=== PATIENT | female | born 1960 | race Caucasian/White ===

== ENCOUNTER 2018-07-10 13:34 | Emergency (ER) | payer OTHER ==
[2018-07-10] MEDS ORDERED: KETOROLAC TROMETHAMINE 60 MG/2 ML VIAL ONE (14:00)
[2018-07-10] MEDS ORDERED: LIDOCAINE 5% TOPICAL PATCH TP ONE (14:00)
== END 2018-07-10 14:55 | disposition home or self-care (01) ==
LOC: EDH 13:34
DX: M54.18 Radiculopathy, sacral and sacrococcygeal region (principal); M06.9 Rheumatoid arthritis, unspecified; M81.0 Age-related osteoporosis without current pathological fracture; J45.909 Unspecified asthma, uncomplicated; M19.90 Unspecified osteoarthritis, unspecified site; Z87.442 Personal history of urinary calculi; Z90.710 Acquired absence of both cervix and uterus
CPT/HCPCS: 96372; 99283; J1885

== ENCOUNTER → 2018-10-09 | Outpatient (CLI) | payer OTHER | END | disposition home or self-care (01) | LOC: RAH 15:32 | PROVIDERS: ATTEND Physical Medicine & Rehabilitation | DX: M50.321 Other cervical disc degeneration at C4-C5 level (principal); M48.02 Spinal stenosis, cervical region; M25.78 Osteophyte, vertebrae | CPT/HCPCS: 72141 ==

== ENCOUNTER → 2018-11-11 | Outpatient (CLI) | payer OTHER | END | disposition home or self-care (01) | LOC: RAH 13:49 | PROVIDERS: ATTEND Nurse Practitioner Adult Health | DX: Z12.31 Encounter for screening mammogram for malignant neoplasm of breast (principal) | CPT/HCPCS: 77067 ==

== ENCOUNTER → 2018-11-12 | Outpatient (CLI) | payer OTHER | END | disposition home or self-care (01) | LOC: RAH 14:41 | PROVIDERS: ATTEND Nurse Practitioner Adult Health | DX: R07.9 Chest pain, unspecified (principal); R60.0 Localized edema; M47.815 Spondylosis without myelopathy or radiculopathy, thoracolumbar region | CPT/HCPCS: 71046; 93970 ==

== ENCOUNTER 2019-04-12 08:46 | Emergency (ER) | payer OTHER ==
[2019-04-12 10:00] LABS: CREATININE 0.8 mg/dL (0.5-1.5); POTASSIUM 3.6 mmol/L (3.5-5.1)
[2019-04-12 10:02] LABS: APPEARANCE,URINE CLEAR (CLEAR); BILIRUBIN,URINE NEGATIVE (NEGATIVE); COLOR,URINE YELLOW (YELLOW); GLUCOSE, URINE (UA) NEGATIVE (NEGATIVE); KETONES,URINE NEGATIVE (NEGATIVE); LEUKOCYTE ESTERASE ,URINE NEGATIVE (NEGATIVE); NITRATE,URINE NEGATIVE (NEGATIVE); OCCULT BLOOD,URINE LARGE (NEGATIVE); PH,URINE 5.5 (5.0-8.0); PROTEIN,URINE NEGATIVE (NEGATIVE); UROBILINOGEN,URINE 0.2 mg/dL (0.2-1.0)
[2019-04-12 10:02] LABS: BASOPHILS % (AUTO) 0.7 % (0.0-5.0); EOSINOPHILS % (AUTO) 3.1 % (0.0-8.0); HEMATOCRIT 39.2 % (36-48); MEAN CORPUSCULAR HEMOGLOBIN 26.4 pg (27.0-33.0); MEAN CORPUSCULAR HGB CONC 31.9 g/dL (32.0-36.0); MEAN CORPUSCULAR VOLUME 82.7 fL (79-99); MONOCYTES % (AUTO) 10.1 % (3.0-13.0); NEUTROPHILS % (AUTO) 53.8 % (40.0-77.0); PLATELET COUNT (AUTO) 300 K/uL (130-400); RED BLOOD CELL COUNT(AUTO) 4.74 MIL/uL (4.00-5.50); WHITE BLOOD COUNT (AUTO) 7.2 K/uL (4.8-10.8)
[2019-04-12 10:05] LABS: ALBUMIN 3.2 g/dL (3.5-5.0); BILIRUBIN,TOTAL 0.5 mg/dL (0.2-1.0); TOTAL PROTEIN, SERUM 6.7 g/dL (6.0-8.3)
[2019-04-12 10:25] LABS: BACTERIA,URINE Few /HPF (None Seen); SQUAMOUS EPITHELIAL CELL,UR 0-2 /HPF (0-2); WBC,URINE 0-1 /HPF (0-1)
[2019-04-12] MEDS ORDERED: MORPHINE SULFATE 4 MG/1ML SYG ONE (10:41)
[2019-04-12] MEDS ORDERED: SODIUM CHLORIDE 0.9% 1000ML 1,000 ML IV ONE (10:41)
[2019-04-12] MEDS ORDERED: KETOROLAC TROMETHAMINE 60 MG/2 ML VIAL ONE (10:41)
[2019-04-12] MEDS ORDERED: ONDANSETRON HCL 4 MG/2 ML VIAL ONE (10:46)
== END 2019-04-12 11:40 | disposition home or self-care (01) ==
LOC: EDH 08:46
DX: N20.0 Calculus of kidney (principal); J45.909 Unspecified asthma, uncomplicated; M79.7 Fibromyalgia; M81.0 Age-related osteoporosis without current pathological fracture; M06.9 Rheumatoid arthritis, unspecified; I10 Essential (primary) hypertension; Z87.891 Personal history of nicotine dependence
CPT/HCPCS: 36415; 74176; 80053; 81001; 85025; 96374; 96375; 99285; J1885; J2270; J2405; J7030

== ENCOUNTER 2019-05-21 13:36 | Emergency (ER) | payer OTHER ==
[2019-05-21] MEDS ORDERED: ACETAMINOPHEN EXTRA STRENGTH 500 MG TABLET ONE (14:47)
[2019-05-21] MEDS ORDERED: SODIUM CHLORIDE 0.9% 1000ML 1,000 ML IV ONE (16:47)
[2019-05-21 16:56] LABS: APPEARANCE,URINE Clear (CLEAR); BASOPHILS % (AUTO) 0.4 % (0.0-5.0); BILIRUBIN,URINE Negative (NEGATIVE); COLOR,URINE Yellow (YELLOW); EOSINOPHILS % (AUTO) 2.6 % (0.0-8.0); GLUCOSE, URINE (UA) Negative (NEGATIVE); HEMATOCRIT 38.7 % (36-48); KETONES,URINE Negative (NEGATIVE); LEUKOCYTE ESTERASE ,URINE Small (NEGATIVE); LYMPHOCYTES % (AUTO) 19.7 % (21.0-51.0); MEAN CORPUSCULAR HGB CONC 31.3 g/dL (32.0-36.0); MONOCYTES % (AUTO) 7.8 % (3.0-13.0); NEUTROPHILS % (AUTO) 69.1 % (40.0-77.0); NITRATE,URINE Negative (NEGATIVE); OCCULT BLOOD,URINE Trace (NEGATIVE); PLATELET COUNT (AUTO) 340 K/uL (130-400); PROTEIN,URINE Negative (NEGATIVE); RED BLOOD CELL COUNT(AUTO) 4.66 MIL/uL (4.00-5.50); RED CELL DISTRIBUTION WIDTH 14.4 % (11.0-15.5); WHITE BLOOD COUNT (AUTO) 11.1 K/uL (4.8-10.8)
[2019-05-21 17:16] LABS: BACTERIA,URINE Few /HPF (None Seen); CREATININE 1.2 mg/dL (0.5-1.5); POTASSIUM 3.2 mmol/L (3.5-5.1); SQUAMOUS EPITHELIAL CELL,UR 0-2 /HPF (0-2)
[2019-05-21 17:24] LABS: ALBUMIN 3.2 g/dL (3.5-5.0); BILIRUBIN,TOTAL 0.4 mg/dL (0.2-1.0); TOTAL PROTEIN, SERUM 7.4 g/dL (6.0-8.3)
[2019-05-21] MEDS ORDERED: POTASSIUM CHLORIDE 20 MEQ ERTAB PO ONE (17:29)
== END 2019-05-21 17:58 | disposition home or self-care (01) ==
LOC: EDH 13:36
DX: J11.1 Influenza due to unidentified influenza virus with other respiratory manifestations (principal); E86.0 Dehydration; M06.9 Rheumatoid arthritis, unspecified; I10 Essential (primary) hypertension; M81.0 Age-related osteoporosis without current pathological fracture; J45.909 Unspecified asthma, uncomplicated; Z90.49 Acquired absence of other specified parts of digestive tract; Z90.710 Acquired absence of both cervix and uterus
CPT/HCPCS: 36415; 71046; 80053; 82550; 83605; 85025; 87040; 87804 ×2; 96360; 99284; J7030

== ENCOUNTER 2019-06-05 07:36 | Day surgery (SDC) | payer OTHER ==
[2019-05-21 12:40] LABS: BASOPHILS % (AUTO) 0.6 % (0.0-5.0); EOSINOPHILS % (AUTO) 2.3 % (0.0-8.0); HEMATOCRIT 39.9 % (36-48); LYMPHOCYTES % (AUTO) 19.8 % (21.0-51.0); MEAN CORPUSCULAR HEMOGLOBIN 25.9 pg (27.0-33.0); MEAN CORPUSCULAR HGB CONC 31.6 g/dL (32.0-36.0); MEAN CORPUSCULAR VOLUME 82.1 fL (79-99); MONOCYTES % (AUTO) 10.5 % (3.0-13.0); NEUTROPHILS % (AUTO) 66.4 % (40.0-77.0); PLATELET COUNT (AUTO) 361 K/uL (130-400); RED BLOOD CELL COUNT(AUTO) 4.86 MIL/uL (4.00-5.50); RED CELL DISTRIBUTION WIDTH 14.5 % (11.0-15.5); WHITE BLOOD COUNT (AUTO) 11.2 K/uL (4.8-10.8)
[2019-05-21 12:46] LABS: APPEARANCE,URINE Clear (CLEAR); BILIRUBIN,URINE Negative (NEGATIVE); COLOR,URINE Yellow (YELLOW); GLUCOSE, URINE (UA) Negative (NEGATIVE); KETONES,URINE Negative (NEGATIVE); LEUKOCYTE ESTERASE ,URINE Small (NEGATIVE); NITRATE,URINE Negative (NEGATIVE); OCCULT BLOOD,URINE Trace (NEGATIVE); PROTEIN,URINE Negative (NEGATIVE)
[2019-05-21 12:50] LABS: CREATININE 1.1 mg/dL (0.5-1.5); POTASSIUM 3.5 mmol/L (3.5-5.1)
[2019-05-21 12:55] LABS: INR 0.95 (0.85-1.15); PARTIAL THROMBOPLASTIN TIME 30.1 SEC (26.3-35.5)
[2019-05-21 12:59] LABS: BACTERIA,URINE Rare /HPF (None Seen); RBC,URINE 0-1 /HPF (0-1); SQUAMOUS EPITHELIAL CELL,UR Rare /HPF (0-2)
[2019-05-21 13:19] VITALS: BP 135/79
--- NOTE | 2019-05-21 13:49 | NUR ---
called doctor office to report that patient reported fever of 101.6 last night, and she stated she has a sore throat, also looking at her vitals from this afternoon pt with heart rate of 119, spoke to marla lang from doctor fingers office, new order to cancel procedure and have patient go to er, took pt on wheelchair to er, advised sidney joaquinr of cancellation.
--- NOTE | 2019-06-04 13:01 | NUR ---
ABNORMAL EKG Dr Reed reviewed EKG ,OK to proceed with procedure
[2019-06-05] VITALS (17 sets, daily range): BP systolic 116–145; BP diastolic 56–86
[~2019-06-05] VITALS: Ht 165.1 cm; Wt 91.0 kg
[~2019-06-05 07:36] MED LIST: AMIT10TA6 PO; ARIP5TAB13 PO; BENZ200C53 PO; BUPROPION PO; CEFTRIAXONE SODIUM 1 GM IVP SCH; CEFU500T67 PO; DIPH25CA85 PO; FOLIC PO; GENTAMICIN 80 MG/NS 100 ML PB 100 ML IV SCH; IRBE300T18 PO; METH2.5T6 PO; MILN25TA PO; ROPI2TAB7 PO; TAMS-1 PO; TRAM50TA4 PO; TRAZ-185 PO
[2019-06-05] MEDS ORDERED: IOHEXOL-350 50ML VIAL IV ONE (08:07)
[2019-06-05] MEDS ORDERED: MIDAZOLAM HCL 1 MG/ML 2ML VIAL ONE (08:13)
[2019-06-05] MEDS ORDERED: ALBUTEROL INHALER 90MCG/INH IH ONE (08:13)
[2019-06-05] MEDS ORDERED: PROPOFOL 10 MG/ML 20ML VIAL IV ONE (08:13)
[2019-06-05] MEDS ORDERED: LIDOCAINE PF 2% 5ML ABBOJECT ONE (08:13)
[2019-06-05] MEDS ORDERED: FENTANYL CITRATE PF 50 MCG/1 ML 2ML VIAL ONE (08:14)
[2019-06-05] MEDS: CEFTRIAXONE SODIUM 1 GM IVP SCH ×2 (08:30→09:00)
[2019-06-05] MEDS ORDERED: LACTATED RINGERS 1000ML 1,000 ML IV ONE (08:30)
[2019-06-05] MEDS ORDERED: KETO10 PO (09:01)
[2019-06-05] MEDS ORDERED: ACET1TAB12 PO (09:01)
[2019-06-05] MEDS ORDERED: CARV6.25 PO (09:01)
[2019-06-05] MEDS ORDERED: IPRA0.2S54 IH (09:01)
[2019-06-05] MEDS ORDERED: DEXAMETHASONE SOD PHOSPHATE 10MG/ML 1ML VIAL ONE (09:13)
[2019-06-05] MEDS ORDERED: ONDANSETRON HCL 4 MG/2 ML VIAL ONE (09:13)
[2019-06-05] MEDS ORDERED: EPHEDRINE SULFATE 50 MG/ML AMPULE ONE (09:25)
--- NOTE | 2019-06-05 10:54 | NUR ---
ASSESSMENT RECEIVED PT FROM PACU STAFF FELIX RN. PT AAOX3. STRING ATTACHED TO PUBIS WITH OP-SITE. DENIES ANY PAIN. INSTRUCTED PT AND PTS TO BE CAREFUL OF STRING. BOTH VERBALIZED UNDERSTANDING.
--- NOTE | 2019-06-05 11:25 | NUR ---
DISCHARGE ORAL AND WRITTEN DISCHARGE INSTRUCTIONS GIVEN TO PT AND PTS ALONG WITH PRESCRIPTION. NO OTHER QUESTIONS AT THIS TIME.
== END 2019-06-05 11:30 | disposition home or self-care (01) ==
LOC: DAH 07:36
PROVIDERS: ATTEND Urology
DX: N20.1 Calculus of ureter (principal); J45.909 Unspecified asthma, uncomplicated; I10 Essential (primary) hypertension; K21.9 Gastro-esophageal reflux disease without esophagitis; F41.9 Anxiety disorder, unspecified; F32.9 Major depressive disorder, single episode, unspecified; M06.9 Rheumatoid arthritis, unspecified; Z79.899 Other long term (current) drug therapy; Z87.891 Personal history of nicotine dependence; Z82.49 Family history of ischemic heart disease and other diseases of the circulatory system; Z82.3 Family history of stroke; Z82.5 Family history of asthma and other chronic lower respiratory diseases; Z98.890 Other specified postprocedural states
CPT/HCPCS: 36415 ×2; 52356; 74420; 80048; 81001; 82360; 85025; 85610; 85730; 87077; 87088; 87186; 93005; 96365; A4213; A4215; A4221; A4222; A4223 ×2; A4354; A4600; A4663; A4930; A6207; C1758; C1769; C1894; C2617; J0696; J1100; J1580; J2001; J2250; J2405; J2704; J3010; J3490; J7030 ×2; J7120; Q9967

== ENCOUNTER → 2019-06-11 | Outpatient (CLI) | payer OTHER ==
[~2019-06-11] MED LIST changes: +ACET1TAB12 PO; +CARV6.25 PO; -CEFTRIAXONE SODIUM 1 GM IVP SCH; -GENTAMICIN 80 MG/NS 100 ML PB 100 ML IV SCH; +IPRA0.2S54 IH; +KETO10 PO; -ROPI2TAB7 PO
== END | disposition home or self-care (01) ==
LOC: RAH 08:43
PROVIDERS: ATTEND Physical Medicine & Rehabilitation
DX: M48.04 Spinal stenosis, thoracic region (principal); M54.6 Pain in thoracic spine
CPT/HCPCS: 72146

== ENCOUNTER 2019-07-31 08:33 | Emergency (ER) | payer OTHER ==
[2019-07-31] MEDS ORDERED: ORPHENADRINE CITRATE 30 MG/ML ML ONE (09:27)
[2019-07-31] MEDS ORDERED: LORAZEPAM 2 MG/ML 1 ML VIAL ONE (09:28)
== END 2019-07-31 10:04 | disposition home or self-care (01) ==
LOC: EDH 08:33
DX: G89.29 Other chronic pain (principal); M54.5 Low back pain; J06.9 Acute upper respiratory infection, unspecified; J45.909 Unspecified asthma, uncomplicated; I10 Essential (primary) hypertension; M81.0 Age-related osteoporosis without current pathological fracture; M79.7 Fibromyalgia; M06.9 Rheumatoid arthritis, unspecified; Z90.710 Acquired absence of both cervix and uterus; Z98.890 Other specified postprocedural states; Z87.442 Personal history of urinary calculi
CPT/HCPCS: 96372 ×2; 99284; J2060; J2360

== ENCOUNTER → 2020-01-09 | Outpatient (CLI) | payer OTHER | END | disposition home or self-care (01) | LOC: RAH 13:55 | PROVIDERS: ATTEND Internal Medicine | DX: Z12.31 Encounter for screening mammogram for malignant neoplasm of breast (principal); N64.89 Other specified disorders of breast | CPT/HCPCS: 77067 ==

== ENCOUNTER → 2020-02-06 | Outpatient (CLI) | payer OTHER | END | disposition home or self-care (01) | LOC: SLP 20:12 | PROVIDERS: ATTEND Internal Medicine | DX: G47.33 Obstructive sleep apnea (adult) (pediatric) (principal) | CPT/HCPCS: 95810 ==

== ENCOUNTER → 2020-02-14 | Outpatient (CLI) | payer OTHER | END | disposition home or self-care (01) | LOC: SLP 20:26 | PROVIDERS: ATTEND Internal Medicine | DX: G47.33 Obstructive sleep apnea (adult) (pediatric) (principal) | CPT/HCPCS: 95811 ==

== ENCOUNTER → 2020-03-17 | Outpatient (CLI) | payer OTHER | END | disposition home or self-care (01) | LOC: RAH 15:02 | PROVIDERS: ATTEND Internal Medicine | DX: R06.00 Dyspnea, unspecified (principal); M47.814 Spondylosis without myelopathy or radiculopathy, thoracic region | CPT/HCPCS: 71046 ==

== ENCOUNTER → 2020-04-06 | Outpatient (CLI) | payer OTHER | END | disposition home or self-care (01) | LOC: RAH 14:08 | PROVIDERS: ATTEND Physical Medicine & Rehabilitation | DX: M19.072 Primary osteoarthritis, left ankle and foot (principal); M79.89 Other specified soft tissue disorders; M85.872 Other specified disorders of bone density and structure, left ankle and foot | CPT/HCPCS: 73610 ==

== ENCOUNTER → 2020-04-13 | Outpatient (CLI) | payer OTHER | LOC: RAH 07:49 | PROVIDERS: ATTEND Physical Medicine & Rehabilitation | DX: I71.4 Abdominal aortic aneurysm, without rupture (principal) | CPT/HCPCS: 76775 ==

== ENCOUNTER → 2020-04-26 | Outpatient (CLI) | payer OTHER | END | disposition home or self-care (01) | LOC: RAH 14:05 | PROVIDERS: ATTEND Physical Medicine & Rehabilitation | DX: M79.89 Other specified soft tissue disorders (principal) | CPT/HCPCS: 73700 ==

== ENCOUNTER → 2020-05-12 | Outpatient (CLI) | payer OTHER ==
[~2020-05-12] MED LIST changes: +ALBUTEROL SULFATE 0.083% 2.5 MG/3 ML INH IH ONE
== END | disposition home or self-care (01) ==
LOC: RESP 04-13 07:37
PROVIDERS: ATTEND Internal Medicine
DX: J44.9 Chronic obstructive pulmonary disease, unspecified (principal)
CPT/HCPCS: 94060; 94727; 94729

== ENCOUNTER 2020-06-26 00:38 | Emergency (ER) | payer OTHER ==
[~2020-06-26 00:38] MED LIST changes: -ALBUTEROL SULFATE 0.083% 2.5 MG/3 ML INH IH ONE
[2020-06-26] MEDS ORDERED: PREDNISONE 20 MG TABLET ONE (01:14)
[2020-06-26] MEDS ORDERED: ORPHENADRINE CITRATE 30 MG/ML ML ONE (01:14)
[2020-06-26] MEDS ORDERED: KETOROLAC TROMETHAMINE 60 MG/2 ML VIAL ONE (01:15)
== END 2020-06-26 01:59 | disposition home or self-care (01) ==
LOC: EDH 00:38
DX: G89.29 Other chronic pain (principal); J45.909 Unspecified asthma, uncomplicated; I10 Essential (primary) hypertension; M06.9 Rheumatoid arthritis, unspecified; Z90.49 Acquired absence of other specified parts of digestive tract; Z90.710 Acquired absence of both cervix and uterus
CPT/HCPCS: 96372 ×2; 99284; J1885; J2360

== ENCOUNTER → 2020-07-15 | Outpatient (CLI) | payer OTHER | END | disposition home or self-care (01) | LOC: RAH 14:10 | PROVIDERS: ATTEND Physical Medicine & Rehabilitation | DX: M41.84 Other forms of scoliosis, thoracic region (principal) | CPT/HCPCS: 72074 ==

== ENCOUNTER → 2020-07-26 | Outpatient (CLI) | payer OTHER | END | disposition home or self-care (01) | LOC: RAH 15:11 | PROVIDERS: ATTEND Internal Medicine | DX: R60.0 Localized edema (principal) | CPT/HCPCS: 93970 ==

== ENCOUNTER → 2021-04-21 | Outpatient (CLI) | payer MEDICARE | END | disposition home or self-care (01) | LOC: RAH 12:39 | PROVIDERS: ATTEND Internal Medicine Critical Care Medicine | DX: J32.9 Chronic sinusitis, unspecified (principal); J34.2 Deviated nasal septum | CPT/HCPCS: 70486 ==

== ENCOUNTER 2021-05-09 09:21 | Day surgery (SDC) | payer MEDICARE ==
[2021-05-05 11:09] LABS: APPEARANCE,URINE Clear (CLEAR); BILIRUBIN,URINE Negative (NEGATIVE); COLOR,URINE Yellow (YELLOW); GLUCOSE, URINE (UA) Negative (NEGATIVE); KETONES,URINE Negative (NEGATIVE); LEUKOCYTE ESTERASE ,URINE Negative (NEGATIVE); NITRATE,URINE Negative (NEGATIVE); OCCULT BLOOD,URINE Negative (NEGATIVE); PROTEIN,URINE Negative (NEGATIVE); UROBILINOGEN,URINE 0.2 mg/dL (0.2-1.0)
[2021-05-05 11:20] LABS: BASOPHILS % (AUTO) 0.7 % (0.0-5.0); EOSINOPHILS % (AUTO) 2.7 % (0.0-8.0); HEMATOCRIT 48.4 % (36-48); MEAN CORPUSCULAR HEMOGLOBIN 26.7 pg (27.0-33.0); MEAN CORPUSCULAR HGB CONC 31.8 g/dL (32.0-36.0); MEAN CORPUSCULAR VOLUME 83.9 fL (79-99); MONOCYTES % (AUTO) 6.5 % (3.0-13.0); NEUTROPHILS % (AUTO) 55.8 % (40.0-77.0); PLATELET COUNT (AUTO) 244 K/uL (130-400); RED BLOOD CELL COUNT(AUTO) 5.77 MIL/uL (4.00-5.50); RED CELL DISTRIBUTION WIDTH 16.4 % (11.0-15.5); WHITE BLOOD COUNT (AUTO) 7.4 K/uL (4.8-10.8)
[2021-05-05 11:28] LABS: CREATININE 0.7 mg/dL (0.5-1.5)
[2021-05-05 11:43] LABS: INR 0.94 (0.85-1.15); PROTHROMBIN TIME 10.3 SEC (9.6-11.6)
[2021-05-05 11:44] LABS: PARTIAL THROMBOPLASTIN TIME 28.1 SEC (26.3-35.5)
[2021-05-06 11:58] VITALS: BP 164/84
[~2021-05-09] VITALS: Ht 165.1 cm; Wt 108.4 kg
[2021-05-09] VITALS (9 sets, daily range): BP systolic 95–141; BP diastolic 61–83
[~2021-05-09 09:21] MED LIST changes: +0.9% NACL 500ML IV.SOLN 500 ML IV SCH; -ACET1TAB12 PO; -AMIT10TA6 PO; -BENZ200C53 PO; -BUPROPION PO; +CARV12.511 PO; -CARV6.25 PO; -CEFU500T67 PO; +CHLO50TA PO; +CYCL5TAB PO; -DIPH25CA85 PO; +ESOM40CA54 PO; +FLUT1BLS15 IH; +FOLIC ACID PO; -FOLIC PO; -IPRA0.2S54 IH; -IRBE300T18 PO; -KETO10 PO; +MELO-108 PO; -MILN25TA PO; +MIRT-93 PO; +PROGESTERONE PO; -TAMS-1 PO; +TELM20TA8 PO; +TERB250T89 PO; -TRAM50TA4 PO; -TRAZ-185 PO; +TRINTELLIX PO; +TUMERIC PO
[2021-05-09] MEDS ORDERED: 0.9%NACL 1000ML 1,000 ML IV ONE (11:01)
[2021-05-09] MEDS ORDERED: IOHEXOL 350 MG/ML 100ML INFUS..BTL IV ONE (15:36)
[2021-05-09] MEDS ORDERED: SODIUM BICARB 50MEQ 50ML VIAL 50 ML ONE (15:36)
[2021-05-09] MEDS ORDERED: IOHEXOL-350 50ML VIAL IV ONE (15:36)
[2021-05-09] MEDS ORDERED: NITROGLYCERIN 50MG VIAL ONE (15:36)
[2021-05-09] MEDS ORDERED: HEPARIN 10,000 UNIT/10ML (1,000 UNIT/ML) VIAL ONE (15:36)
[2021-05-09] MEDS ORDERED: LIDOCAINE HCL 400MG/20ML VIAL ONE (15:37)
[2021-05-09] MEDS ORDERED: FENTANYL CITRATE PF 50 MCG/1 ML 2ML VIAL ONE (15:37)
[2021-05-09] MEDS ORDERED: MIDAZOLAM HCL 1 MG/ML 2ML VIAL ONE (15:37)
[2021-05-09] MEDS ORDERED: LIDOCAINE HCL 1% 20 ML VIAL ONE (16:30)
== END 2021-05-09 21:05 | disposition home or self-care (01) ==
LOC: DAH 09:21
PROVIDERS: ATTEND Internal Medicine Cardiovascular Disease
DX: I25.10 Atherosclerotic heart disease of native coronary artery without angina pectoris (principal); I27.20 Pulmonary hypertension, unspecified; I10 Essential (primary) hypertension; M79.7 Fibromyalgia; M06.9 Rheumatoid arthritis, unspecified; G47.33 Obstructive sleep apnea (adult) (pediatric); F32.A Depression, unspecified; F41.9 Anxiety disorder, unspecified; E66.9 Obesity, unspecified; Z82.49 Family history of ischemic heart disease and other diseases of the circulatory system; Z98.890 Other specified postprocedural states; Z79.01 Long term (current) use of anticoagulants; Z68.38 Body mass index [BMI] 38.0-38.9, adult; Z79.899 Other long term (current) drug therapy
CPT/HCPCS: 36415; 71045; 80048; 81003; 82948; 85025; 85610; 85730; 93005; 93460; A4215; A4216; A4221; A4222; A4223 ×3; A4606; A4663; C1760; C1894 ×3; J1644; J2250; J3010; J3490 ×3; J7030; Q9965; Q9967 ×2; 99156; 99157

== ENCOUNTER → 2021-09-01 | Outpatient (CLI) | payer MEDICARE ==
[~2021-09-01] MED LIST changes: -0.9% NACL 500ML IV.SOLN 500 ML IV SCH
== END | disposition home or self-care (01) ==
LOC: CANPRECLI → RAH 10:40
PROVIDERS: ATTEND Internal Medicine Gastroenterology
DX: R11.0 Nausea (principal); R10.9 Unspecified abdominal pain
CPT/HCPCS: 78226; A9537

== ENCOUNTER → 2022-01-20 | Outpatient (CLI) | payer MEDICARE | END | disposition home or self-care (01) | LOC: RAH 10:34 | PROVIDERS: ATTEND Internal Medicine Gastroenterology | DX: R11.0 Nausea (principal) | CPT/HCPCS: 78264; A9541 ==

== ENCOUNTER → 2022-02-07 | Outpatient (CLI) | payer MEDICARE | END | disposition home or self-care (01) | LOC: RAH 08:55 | PROVIDERS: ATTEND Internal Medicine Critical Care Medicine | DX: J30.1 Allergic rhinitis due to pollen (principal) | CPT/HCPCS: 70486 ==

== ENCOUNTER 2022-04-28 06:48 | Day surgery (SDC) | payer MEDICARE ==
[2022-04-26 15:21] LABS: BASOPHILS % (AUTO) 0.5 % (0.0-5.0); EOSINOPHILS % (AUTO) 1.2 % (0.0-8.0); LYMPHOCYTES % (AUTO) 39.9 % (21.0-51.0); MEAN CORPUSCULAR HEMOGLOBIN 26.7 pg (27.0-33.0); MEAN CORPUSCULAR HGB CONC 30.6 g/dL (32.0-36.0); MEAN CORPUSCULAR VOLUME 87.3 fL (79-99); MONOCYTES % (AUTO) 9.7 % (3.0-13.0); NEUTROPHILS % (AUTO) 48.5 % (40.0-77.0); PLATELET COUNT (AUTO) 224 K/uL (130-400); RED BLOOD CELL COUNT(AUTO) 5.84 MIL/uL (4.00-5.50); RED CELL DISTRIBUTION WIDTH 14.3 % (11.0-15.5); WHITE BLOOD COUNT (AUTO) 8.4 K/uL (4.8-10.8)
[2022-04-26 15:23] LABS: APPEARANCE,URINE CLEAR (CLEAR); BILIRUBIN,URINE NEGATIVE (NEGATIVE); COLOR,URINE YELLOW (YELLOW); GLUCOSE, URINE (UA) NEGATIVE (NEGATIVE); KETONES,URINE NEGATIVE (NEGATIVE); LEUKOCYTE ESTERASE ,URINE NEGATIVE Leu/uL (NEGATIVE); NITRATE,URINE NEGATIVE (NEGATIVE); OCCULT BLOOD,URINE NEGATIVE (NEGATIVE); PROTEIN,URINE 10 mg/dL (NEGATIVE)
[2022-04-26 15:29] LABS: CREATININE 1.1 mg/dL (0.5-1.5); POTASSIUM 3.2 mmol/L (3.5-5.1)
[2022-04-26 15:30] LABS: BACTERIA,URINE RARE /HPF (None Seen); MUCUS,URINE RARE LPF (None Seen); SQUAMOUS EPITHELIAL CELL,UR RARE /HPF (0-2); WBC,URINE 0-1 /HPF (0-1)
[2022-04-26 15:33] LABS: INR 0.95 (0.85-1.15); PROTHROMBIN TIME 10.4 SEC (9.6-11.6)
[2022-04-26 15:34] LABS: PARTIAL THROMBOPLASTIN TIME 28.1 SEC (26.3-35.5)
[2022-04-27 11:34] VITALS: BP 144/70
[~2022-04-28] VITALS: Ht 165.1 cm; Wt 109.7 kg
[2022-04-28] VITALS (10 sets, daily range): BP systolic 135–173; BP diastolic 66–93
[~2022-04-28 06:48] MED LIST changes: +0.9% NACL 500ML IV.SOLN 500 ML IV SCH; +ACET-2079 PO; +ARIP2TAB3 PO; -ARIP5TAB13 PO; -CHLO50TA PO; +CLON0.5T4 PO; -CYCL5TAB PO; +DICY20TA3 PO; +ESOM40CA PO; -ESOM40CA54 PO; +FAMO40TA7 PO; -FLUT1BLS15 IH; -FOLIC ACID PO; +FURO40TA5 PO; -MELO-108 PO; -METH2.5T6 PO; -MIRT-93 PO; +MONT-39 PO; +ONDA8TAB12 PO; -PROGESTERONE PO; -TERB250T89 PO; +TRAZ-187 PO; -TUMERIC PO
[2022-04-28] MEDS ORDERED: 0.9%NACL 1000ML 1,000 ML IV ONE (07:12)
[2022-04-28] MEDS ORDERED: SODIUM BICARB 50MEQ 50ML VIAL 50 ML ONE (08:31)
[2022-04-28] MEDS ORDERED: NITROGLYCERIN 50MG VIAL ONE (08:32)
[2022-04-28] MEDS ORDERED: IOHEXOL 350 MG/ML 100ML INFUS..BTL IV ONE (08:32)
[2022-04-28] MEDS ORDERED: HEPARIN 10,000 UNIT/10ML (1,000 UNIT/ML) VIAL ONE (08:32)
[2022-04-28] MEDS ORDERED: NICARDIPINE 25MG INJ IV ONE (08:32)
[2022-04-28] MEDS ORDERED: FENTANYL CITRATE PF 50 MCG/1 ML 2ML VIAL ONE (08:32)
[2022-04-28] MEDS ORDERED: LIDOCAINE HCL 400MG/20ML VIAL ONE (08:32)
[2022-04-28] MEDS ORDERED: MIDAZOLAM HCL 1 MG/ML 2ML VIAL ONE (08:32)
== END 2022-04-28 14:04 | disposition home or self-care (01) ==
LOC: DAH 06:48
PROVIDERS: ATTEND Internal Medicine Cardiovascular Disease
DX: R94.39 Abnormal result of other cardiovascular function study (principal); R06.09 Other forms of dyspnea; I27.20 Pulmonary hypertension, unspecified; I11.0 Hypertensive heart disease with heart failure; I50.32 Chronic diastolic (congestive) heart failure; J45.909 Unspecified asthma, uncomplicated; G47.33 Obstructive sleep apnea (adult) (pediatric); F41.9 Anxiety disorder, unspecified; F32.A Depression, unspecified; M06.9 Rheumatoid arthritis, unspecified; Z82.49 Family history of ischemic heart disease and other diseases of the circulatory system; Z79.01 Long term (current) use of anticoagulants; Z79.899 Other long term (current) drug therapy
CPT/HCPCS: 80048; 85025; 85610; 85730; 81001; 36415 ×2; 93005; 93451; 84132; C1894 ×2; J3490 ×2; J7030; J1644; A4215; A4222; A4221; A4663; A4216; A4606; A4223 ×3; J2250; J3010; Q9967

== ENCOUNTER 2022-12-28 05:51 | Day surgery (SDC) | payer OTHER, MEDICARE ==
[2022-12-26 14:00] VITALS: BP 123/67; PULSE 74; RESP 17
[~2022-12-28] VITALS: Ht 165.1 cm; Wt 118.8 kg
[2022-12-28] VITALS (7 sets, daily range): BP systolic 98–127; BP diastolic 41–77; PULSE 69–84; RESP 15–16
[~2022-12-28 05:51] MED LIST changes: -0.9% NACL 500ML IV.SOLN 500 ML IV SCH; -ARIP2TAB3 PO; +ARIP5TAB56 PO; +CHOL4POW4 PO; +LORA10TA7 PO; +METALAZONE PO; -MONT-39 PO; +MULT-1367 PO; +POTA-202 PO; +[UNRECOGNIZED DRUG - OTHER] PO
[2022-12-28] MEDS ORDERED: LIDOCAINE HCL 400MG/20ML VIAL ONE (09:12)
[2022-12-28] MEDS ORDERED: PROPOFOL 10 MG/ML 20ML VIAL IV ONE (09:12)
== END 2022-12-28 10:20 | disposition home or self-care (01) ==
LOC: ENDO 05:51
PROVIDERS: ATTEND Internal Medicine Gastroenterology
DX: R10.13 Epigastric pain (principal); R11.0 Nausea; K29.50 Unspecified chronic gastritis without bleeding; K62.89 Other specified diseases of anus and rectum; Z90.710 Acquired absence of both cervix and uterus; R19.7 Diarrhea, unspecified; K21.9 Gastro-esophageal reflux disease without esophagitis; I10 Essential (primary) hypertension; G47.30 Sleep apnea, unspecified; I25.10 Atherosclerotic heart disease of native coronary artery without angina pectoris; F41.9 Anxiety disorder, unspecified; F32.A Depression, unspecified; E66.9 Obesity, unspecified; J45.909 Unspecified asthma, uncomplicated; M19.90 Unspecified osteoarthritis, unspecified site; Z90.49 Acquired absence of other specified parts of digestive tract; Z98.890 Other specified postprocedural states; Z86.010 Personal history of colon polyps; Z68.42 Body mass index [BMI] 45.0-49.9, adult
CPT/HCPCS: 43239; J3490; J2704; A4620; A4215 ×2; A4223; A7002; A4221; A4663; A4216; J7030; A4606

== ENCOUNTER → 2023-03-07 | Outpatient (CLI) | payer OTHER, MEDICARE | END | disposition home or self-care (01) | LOC: RAH 10:38 | PROVIDERS: ATTEND Internal Medicine | DX: Z12.31 Encounter for screening mammogram for malignant neoplasm of breast (principal) | CPT/HCPCS: 77067 ==

== ENCOUNTER → 2024-01-08 | Outpatient (CLI) | payer OTHER, MEDICARE ==
[~2024-01-08] MED LIST changes: +ARIP5TAB51 PO; -ARIP5TAB56 PO; +ONDA-245 PO; -ONDA8TAB12 PO
== END | disposition home or self-care (01) ==
LOC: RAH 09:04
DX: M47.817 Spondylosis without myelopathy or radiculopathy, lumbosacral region (principal); M48.07 Spinal stenosis, lumbosacral region; M47.896 Other spondylosis, lumbar region
CPT/HCPCS: 72148

== ENCOUNTER 2024-01-21 13:56 | Emergency (ER) | payer OTHER, MEDICARE ==
[~2024-01-21] VITALS: Ht 165.1 cm; Wt 125.2 kg
[2024-01-21] MEDS: ketOROlac 15MG/ML VIAL (15MG/ML) IV ONE (14:36)
[2024-01-21] MEDS: morPHINE 4 MG SYG IVP ONE (14:37)
[2024-01-21] MEDS: diazePAM 5 MG/ML 2 ML SYG IM ONE (14:39)
[2024-01-21 14:55] LABS: BASOPHILS # (AUTO) 0.03 K/uL (0.00-0.20); BASOPHILS % (AUTO) 0.3 % (0.0-5.0); EOSINOPHILS # (AUTO) 0.17 K/uL (0.00-0.70); EOSINOPHILS % (AUTO) 1.7 % (0.0-8.0); HEMATOCRIT 39.3 % (36-48); IMMATURE GRANULOCYTE ABSOLUTE 0.04 K/uL (0-1); LYMPHOCYTES % (AUTO) 20.3 % (21.0-51.0); MEAN CORPUSCULAR HEMOGLOBIN 28.1 pg (27.0-33.0); MEAN CORPUSCULAR VOLUME 93.6 fL (79-99); MONOCYTES # (AUTO) 0.6 K/uL (0.1-1.0); MONOCYTES % (AUTO) 5.7 % (3.0-13.0); NEUTROPHILS % (AUTO) 71.6 % (40.0-77.0); PLATELET COUNT (AUTO) 207 K/uL (130-400); RED CELL DISTRIBUTION WIDTH 13.8 % (11.0-15.5); WHITE BLOOD COUNT (AUTO) 9.8 K/uL (4.8-10.8)
[2024-01-21 15:03] LABS: CREATININE 1.1 mg/dL (0.5-1.0); POTASSIUM 3.4 mmol/L (3.5-5.1)
[2024-01-21 15:07] LABS: ALBUMIN 3.1 g/dL (3.5-5.0); BILIRUBIN,DIRECT 0.1 mg/dL (0.0-0.3); BILIRUBIN,TOTAL 0.4 mg/dL (0.2-1.0); TOTAL PROTEIN, SERUM 6.5 g/dL (6.0-8.3)
[2024-01-21 16:05] LABS: APPEARANCE,URINE TURBID (CLEAR); BILIRUBIN,URINE NEGATIVE (NEGATIVE); COLOR,URINE YELLOW (YELLOW); GLUCOSE, URINE (UA) 30 mg/dL (NEGATIVE); KETONES,URINE NEGATIVE (NEGATIVE); LEUKOCYTE ESTERASE ,URINE 250 Leu/uL (NEGATIVE); NITRATE,URINE NEGATIVE (NEGATIVE); OCCULT BLOOD,URINE LARGE (NEGATIVE); PH,URINE 5.5 (5.0-8.0); PROTEIN,URINE 30 mg/dL (NEGATIVE); UROBILINOGEN,URINE 0.2 mg/dL (0.2-1.0)
[2024-01-21 16:08] LABS: ADD UA MICROSCOPIC YES
[2024-01-21 16:13] LABS: BACTERIA,URINE RARE /HPF (None Seen); CALCIUM OXALATE CRYSTALS,UR FEW /LPF (None Seen); MUCUS,URINE FEW LPF (None Seen); NON-SQUAMOUS EPITHELIAL CELL 2 /HPF (0-2); RBC,URINE 51-100 /HPF (0-1); SQUAMOUS EPITHELIAL CELL,UR FEW /HPF (0-2); UNCLASSIFIED CRYSTAL 16 /HPF (None Seen); URIC ACID CRYSTALS,URINE FEW /LPF (None Seen); WBC CLUMP FEW /HPF (0-1); WBC,URINE 51-100 /HPF (0-1)
[2024-01-21] MEDS ORDERED: IBUP-2077 PO (16:53)
[2024-01-21] MEDS ORDERED: HYDR-4381 PO (16:53)
[2024-01-21] MEDS ORDERED: TAMS-1 PO (16:53)
[2024-01-21 17:00] VITALS: BP 131/73; PULSE 68; RESP 18; TEMP 98.3; O2SAT 96
== END 2024-01-21 17:34 | disposition home or self-care (01) ==
LOC: EDH 13:56
DX: N20.0 Calculus of kidney (principal); E11.9 Type 2 diabetes mellitus without complications; E66.9 Obesity, unspecified; E78.00 Pure hypercholesterolemia, unspecified; I10 Essential (primary) hypertension; Z79.899 Other long term (current) drug therapy; Z88.8 Allergy status to other drugs, medicaments and biological substances; Z90.49 Acquired absence of other specified parts of digestive tract; Z90.710 Acquired absence of both cervix and uterus; Z98.890 Other specified postprocedural states
CPT/HCPCS: 99284; 74176; 96374; 96375; 80076; 80048; 83690; 85025; 87086; 81001; 36415; 96372; J3360; J2270; J1885; 87186

== ENCOUNTER 2024-02-04 09:25 | Inpatient (IN) | payer OTHER, MEDICARE ==
[~2024-02-04] VITALS: Ht 165.1 cm; Wt 129.0 kg
[~2024-02-04 09:25] MED LIST changes: +HYDR-4381 PO; +IBUP-2077 PO; +TAMS-1 PO
--- NOTE | 2024-02-04 09:49 | ERN ---
General Chief Complaint: Flank Pain Stated Complaint: BILATERAL FLANK PAIN Time Seen by MD: 09:26 Source: patient History of Present Illness Initial Comments Patient is a 63-year-old female coming in to be evaluated for bilateral flank pain. Patient states he had does has a history of kidney stones and was recently told she had kidney stones. She has also a history of pulmonary hypertension in uses oxygen home at home. Allergies: Coded Allergies: No Known Drug Allergies (Verified Allergy, Unknown, 05/21/19) gabapentin (Unverified Allergy, Unknown, 12/28/22) Home Meds Active Scripts Tamsulosin HCl (Flomax) 0.4 Mg Cap.er.24h, 0.4 MG PO DAILY for 30 Days, #30 CAPSULE. Prov:JANNETTE TRUJILLO DO 01/21/24 Ibuprofen (Ibuprofen 800 mg Tab) 800 Mg Tab, 800 MG PO Q6H PRN for PAIN, #30 TAB Prov:JANNETTE TRUJILLO DO 01/21/24 Hydrocodone/Acetaminophen (Hydrocodone-Acetamin 10-300 mg) 10 Mg-300 Mg Tablet, 1 TAB PO QIDP PRN for PAIN for 10 Days, #20 TAB 0 Refills Prov:JANNETTE TRUJILLO DO 01/21/24 Reported Medications Aripiprazole (Aripiprazole) 5 Mg Tablet, 5 MG PO HS, TAB 12/26/22 Potassium Chloride (Potassium Chloride) 20 Meq Tab.er.prt, 40 MEQ PO DAILY 12/26/22 [Metalazone] No Conflict Check, 5 MG PO DAILY 12/26/22 [Trintellix] No Conflict Check, 20 MG PO HS 12/26/22 [Multi-Neversink] No Conflict Check, 1 TAB.CHEW PO DAILY 12/26/22 Cholestyramine (with Sugar) (Cholestyramine Packet) 4 Gram Powd.pack, 4 GM PO DAILY 12/26/22 Multivitamin (Multivitamin) 1 Each Tablet, 2 EACH PO DAILY, TAB 12/26/22 Loratadine (Loratadine) 10 Mg Tablet, 10 MG PO HS, TAB 12/26/22 Esomeprazole Magnesium (Nexium) 40 Mg Capsule.dr, 40 MG PO DAILY, CAP 04/27/22 Furosemide (Furosemide) 40 Mg Tablet, 80 MG PO BID, TAB 04/27/22 Ondansetron (Ondansetron Odt) 8 Mg Tab.rapdis, 8 MG PO BID, TAB 04/27/22 Dicyclomine HCl (Dicyclomine HCl) 20 Mg Tablet, 20 MG PO DAILY, TAB 04/27/22 Clonazepam (Clonazepam) 0.5 Mg Tablet, 0.5 MG PO HSPRN PRN for ANX IETY/AGITATION, TAB 04/27/22 Trazodone HCl (Trazodone HCl) 100 Mg Tablet, 100 MG PO HS, TAB 04/27/22 Acetaminophen with Codeine (Acetaminophen-Cod #3 Tablet) 300 Mg-30 Mg Tablet, 1 EACH PO HS PRN for PAIN, TAB 04/27/22 Famotidine (Famotidine) 40 Mg Tablet, 40 MG PO HS, TAB 04/27/22 Telmisartan (Telmisartan) 20 Mg Tablet, 20 MG PO DAILY, TAB 05/06/21 Carvedilol (Carvedilol) 12.5 Mg Tablet, 12.5 MG PO BID, TAB 05/06/21 Past Medical History Past Medical History: Arthritis, Diabetes-Type II, Fibromyalgia, High Cholesterol, Hypertension, Kidney Stone Medical History Other: PULMONARY HYPERTENSION Past Surgical History: Hysterectomy, Cholecystectomy Surgical History Other: NECK ROS Dictation CONSTITUTIONAL: No chills, no fever, no weakness, no diaphoresis, no malaise. HEAD/FACE: No signs of trauma. EENT: No eye pain, no blurred vision, no tearing, no double vision, no ear pain, no ear discharge, no nose pain, no nasal congestion, no throat pain, no throat swelling, no mouth pain. RESPIRATORY: No cough, no orthopnea, no SOB, no stridor, no wheezing. CARDIOVASCULAR: No chest pain, no edema, no palpitations, no syncope. GASTROINTESTINAL/ABDOMINAL: No abdominal pain, no constipation, no diarrhea, no nausea, no vomiting. GENITOURINARY: No abnormal discharge, no dysuria, no frequent urination, no hematuria. No complaints of pain in the genitals. MUSCULOSKELETAL: No back pain, no gout, no joint pain, no joint swelling, no muscle pain, no muscle stiffness, no neck pain. INTEGUMENTARY: No change in color, no change in hair/nails, no dryness, no lesion, no lumps, no rash. NEUROLOGICAL/PSYCH: No anxiety, not depressed, no emotional problem, no headache, no numbness, no pre-existing deficit, no history of seizures, no tremors, no weakness. HEMATOLOGIC/LYMPHATIC: Not anemic, no history of blood clots, no apparent bleeding, no bruising, glands not swollen. All Systems Negative, Except as Noted. Physical Exam Physical Exam Dictation VITAL SIGNS: Reviewed. GENERAL APPEARANCE: Alert, oriented x3, no acute distress, obese. HEAD AND FACE: Non-traumatic. EYES: PERRL, pink conjunctivas, eyelid no trauma, anterior chamber clear. EARS: Pinnas intact and no signs of trauma or erythema. Ear canals clear and no discharge. TMs no erythema. NOSE: No discharge, no bleeding. OROPHARYNX: Mouth normal, teeth no caries, tongue pink. Pharynx clear, no erythema. Tonsils no exudates, no abscesses noted. Mucous membrane moist. NECK: Supple, non-tender, no thyromegaly, no masses, no JVD, no bruits. BREAST: Deferred. CHEST: No tenderness, no crepitus, no paradoxical movement, no retractions. LUNGS: Clear, well-ventilated, symmetric, no rales, no wheezing, no rhonchi, no stridor, good breath sounds bilaterally. HEART: Regular rate, regular rhythm, no murmur, no gallops. VASCULAR: No peripheral edema. ABDOMEN: Soft, positive bowel sounds, nondistended, no guarding, nontender, no rebound, no masses no hepatomegaly, no splenomegaly, no Poe's sign, no hernias. RECTAL: Deferred. GENITAL: Deferred. NEUROLOGICAL: Normal speech, gross motor function intact, gross sensory function intact. MUSCULOSKELETAL: Neck nontender, full range of motion, back nontender, full range of motion. EXTREMITIES: Nontender, full range of motion. SKIN: Color pink, dry, no turgor, no rash, no lacerations, no abrasions, no contusions. LYMPHATICS: Deferred. Results Laboratory and Microbiology Lab and Micro Result Laboratory Tests Test 02/04/24 10:05 02/04/24 10:08 Urine Color LIGHT-YELLOW (YELLOW) Urine Appearance CLOUDY (CLEAR) H Urine pH 5.5 (5.0-8.0) Urine Specific [place] 1.026 (1.001-1.031) Urine Protein 10 mg/dL (NEGATIVE) H Urine Glucose (UA) NEGATIVE mg/dL (NEGATIVE) Urine Ketones NEGATIVE mg/dL (NEGATIVE) Urine Occult Blood +- (TRACE) (NEGATIVE) H Urine Nitrate NEGATIVE (NEGATIVE) Urine Bilirubin NEGATIVE mg/dL (NEGATIVE) Urine Urobilinogen 0.2 mg/dL (0.2-1.0) Urine Leukocyte Esterase 75 Christina/uL (NEGATIVE) H Urine RBC 6-10 /HPF (0-1) H Urine WBC 2-5 /HPF (0-1) H Urine Squamous Epithelial Cells MOD /HPF (0-2) Urine Uric Acid Crystals FEW /LPF (None Seen) Urine Bacteria None /HPF (None Seen) White Blood Count 9.8 K/uL (4.8-10.8) Red Blood Count 4.23 MIL/uL (4.00-5.50) Hemoglobin 11.9 g/dL (12.0-16.0) L Hematocrit 39.9 % (36-48) Mean Corpuscular Volume 94.3 fL (79-99) Mean Corpuscular Hemoglobin 28.1 pg (27.0-33.0) Mean Corpuscular Hemoglobin Concent 29.8 g/dL (32.0-36.0) L Red Cell Distribution Width 13.7 % (11.0-15.5) Platelet Count 228 K/uL (130-400) Mean Platelet Volume 9.8 fL (7.5-10.5) Immature Granulocyte % (Auto) 0.4 % (0-1) Neutrophils (%) (Auto) 64.2 % (40.0-77.0) Lymphocytes (%) (Auto) 22.1 % (21.0-51.0) Monocytes (%) (Auto) 9.2 % (3.0-13.0) Eosinophils (%) (Auto) 3.6 % (0.0-8.0) Basophils (%) (Auto) 0.5 % (0.0-5.0) Neutrophils # (Auto) 6.3 K/uL (1.8-7.7) Lymphocytes # (Auto) 2.2 K/uL (1.0-4.8) Monocytes # (Auto) 0.9 K/uL (0.1-1.0) Eosinophils # (Auto) 0.35 K/uL (0.00-0.70) Basophils # (Auto) 0.05 K/uL (0.00-0.20) Absolute Immature Granulocyte (auto 0.04 K/uL (0-1) Nucleated Red Blood Cells 0.0 % (0.0-0.19) Red Blood Cell Morphology See comments Sodium Level 147 mmol/L (136-145) H Potassium Level 3.2 mmol/L (3.5-5.1) L Chloride Level 101 mmol/L (101-111) Carbon Dioxide Level 40 mmol/L (21-32) *H Blood Urea Nitrogen 24 mg/dL (7-18) H Creatinine 1.6 mg/dL (0.5-1.0) H Glomerular Filtration Rate Calc 36 mL/min (>90) Random Glucose 132 mg/dL (70-105) H Total Calcium 9.2 mg/dL (8.5-10.1) Labs Reviewed?: Yes EKG/XRAY/US/CT/MRI Ultrasound Comment [place] [address] [place] [address] IMAGING REPORT Signed PATIENT: [place] MR#: [id number] : 1960 SEX: F AGE: 63 LOCATION: [facility] ORDER 1007 STATUS: [facility] REPORT#: [id number] SERVICE 1007 REASON: bilateral flank pain ORDERING PHYSICIAN: RENATA DE ANDA MD PROCEDURE: RENAL - US RENAL SONOGRAM US RENAL SONOGRAM REASON: bilateral flank pain COMPARISON: None TECHNIQUE: Renal and bladder sonogram was performed. FINDINGS: Right kidney is 10.8 x 6.3 x 6.6 cm, left 11.9 x 5.6 x 6.3 cm. There is moderate bilateral renal cortical thinning. There is a 1 cm stone in the right kidney, nonobstructing. There is a 2.6 cm cyst right kidney and a 3.6 cm cyst left kidney. Urinary bladder is only partially distended. Urinary bladder wall appears mildly thickened but this is inconclusive in the a urinary bladder which is not completely distended. IMPRESSION: 1. Mild bilateral renal cortical thinning. It 2. Small cysts, one on each kidney, there is also a nonobstructing 1 cm stone right kidney. 3. No evidence of mass or hydronephrosis. 4. Urinary bladder only partially distended and not well visualized. DICTATED BY: DIANN RUBY MD DATE: 02/04/24 1102 ELECTRONICALLY SIGNED BY: DIANN RUBY MD DATE: 02/04/24 1118 [facility] MDM: Differential diagnosis: Nephrolithiasis, dysuria, dehydration, ANDREA Rationale: Tests considered and ordered secondary to shared decision making include: Previous outside records reviewed: Old ER visits. Risk of complication and/or morbidity or mortality of patient management: None Medications-Per medication reconciliation Need for hospitalization: Patient does meet criteria for hospitalization. Need for emergency major/minor surgery: No There are no social concerns with this patient. Prescription drug management Prescriptions will include symptomatic care Patient's prior external medical records from other ER visits were reviewed by me as indicated. Prior testing and results from previous visits were reviewed. Prior tests were taken into account with medical decision making and resource utilization, independent historian/historians were used to obtain complete medical history. I independently interpreted the test that were performed, results were reviewed by me and considered findings on radiology if ordered. Medical management and examination interpretation discussions were had by me with other qualified healthcare professionals as indicated for the patient's care. Patient is a 63-year-old female coming in to be evaluated for flank pain. Upon evaluation laboratory workup positive for ANDREA with the hydration. Patient will be admitted under the care of hospitalist group for ongoing management. ED Course Orders Procedure Category Date Status Time Cbc With Differential LAB 02/04/24 Complete 09:41 Basic Metabolic Panel LAB 02/04/24 Complete 09:41 Urinalysis LAB 02/04/24 Complete W/Microscopic 09:41 Diphenhydramine Hcl PHA 02/04/24 Complete (Benadryl Inj) 10:00 Us Renal Sonogram US 02/04/24 Resulted 10:07 Culture Urine ALICE 02/04/24 In Process 10:48 0.9%Nacl 1000ml (Ns PHA 02/04/24 Complete 1000ml) 11:30 Current Medications Medications (Trade) Dose Ordered Sig/Ash[place] Route PRN Reason Start Time Stop Time Status Last Admin Dose Admin Diphenhydramine HCl (BENAdryl INJ) 50 mg ONCE ONCE IM 02/04/24 10:00 02/04/24 10:08 DC Sodium Chloride 1,000 ml @ 0 mls/hr ONCE ONCE IV 02/04/24 11:30 02/04/24 11:31 DC Vital Signs Date Time Temp Pulse Resp B/P (MAP) Pulse Ox O2 Delivery O2 Flow Rate FiO2 02/04/24 11:02 98.4 82 16 141/74 97 Nasal Cannula* 2 28 02/04/24 09:38 98.4 85 16 139/77 97 Room Air* 0 21 02/04/24 09:26 98.4 85 16 139/77 97 Nasal Cannula 2.0 DX & DISP Disposition: Inpatient Decision to Admit Time: 11:37 Departure Impression: Primary Impression: Dehydration Additional Impression: ANDREA (acute kidney injury) Condition: Stable Referrals: VINCE HASSAN MD (PCP) RENATA DE ANDA MD Feb 04, 2024 09:49
[2024-02-04] MEDS ORDERED: DiphenhydrAMINE HCL 50 MG/ML VIAL IM ONE (10:00)
[2024-02-04 10:14] LABS: BASOPHILS # (AUTO) 0.05 K/uL (0.00-0.20); BASOPHILS % (AUTO) 0.5 % (0.0-5.0); EOSINOPHILS # (AUTO) 0.35 K/uL (0.00-0.70); EOSINOPHILS % (AUTO) 3.6 % (0.0-8.0); HEMATOCRIT 39.9 % (36-48); IMMATURE GRANULOCYTE ABSOLUTE 0.04 K/uL (0-1); LYMPHOCYTES # (AUTO) 2.2 K/uL (1.0-4.8); LYMPHOCYTES % (AUTO) 22.1 % (21.0-51.0); MEAN CORPUSCULAR HEMOGLOBIN 28.1 pg (27.0-33.0); MEAN CORPUSCULAR HGB CONC 29.8 g/dL (32.0-36.0); MEAN CORPUSCULAR VOLUME 94.3 fL (79-99); MONOCYTES # (AUTO) 0.9 K/uL (0.1-1.0); MONOCYTES % (AUTO) 9.2 % (3.0-13.0); NEUTROPHILS # (AUTO) 6.3 K/uL (1.8-7.7); NEUTROPHILS % (AUTO) 64.2 % (40.0-77.0); PLATELET COUNT (AUTO) 228 K/uL (130-400); RED BLOOD CELL COUNT(AUTO) 4.23 MIL/uL (4.00-5.50); RED CELL DISTRIBUTION WIDTH 13.7 % (11.0-15.5); WHITE BLOOD COUNT (AUTO) 9.8 K/uL (4.8-10.8)
[2024-02-04 10:18] LABS: CREATININE 1.6 mg/dL (0.5-1.0); POTASSIUM 3.2 mmol/L (3.5-5.1)
[2024-02-04 10:30] LABS: APPEARANCE,URINE CLOUDY (CLEAR); BILIRUBIN,URINE NEGATIVE (NEGATIVE); COLOR,URINE LIGHT-YELLOW (YELLOW); GLUCOSE, URINE (UA) NEGATIVE (NEGATIVE); KETONES,URINE NEGATIVE (NEGATIVE); LEUKOCYTE ESTERASE ,URINE 75 Leu/uL (NEGATIVE); NITRATE,URINE NEGATIVE (NEGATIVE); PH,URINE 5.5 (5.0-8.0); PROTEIN,URINE 10 mg/dL (NEGATIVE); UROBILINOGEN,URINE 0.2 mg/dL (0.2-1.0)
[2024-02-04 10:54] LABS: MUCUS,URINE RARE LPF (None Seen); SQUAMOUS EPITHELIAL CELL,UR MOD /HPF (0-2); URIC ACID CRYSTALS,URINE FEW /LPF (None Seen)
--- NOTE | 2024-02-04 11:18 | HMCIMG ---
US RENAL SONOGRAM REASON: bilateral flank pain COMPARISON: None TECHNIQUE: Renal and bladder sonogram was performed. FINDINGS: Right kidney is 10.8 x 6.3 x 6.6 cm, left 11.9 x 5.6 x 6.3 cm. There is moderate bilateral renal cortical thinning. There is a 1 cm stone in the right kidney, nonobstructing. There is a 2.6 cm cyst right kidney and a 3.6 cm cyst left kidney. Urinary bladder is only partially distended. Urinary bladder wall appears mildly thickened but this is inconclusive in the a urinary bladder which is not completely distended. IMPRESSION: 1. Mild bilateral renal cortical thinning. It 2. Small cysts, one on each kidney, there is also a nonobstructing 1 cm stone right kidney. 3. No evidence of mass or hydronephrosis. 4. Urinary bladder only partially distended and not well visualized.
[2024-02-04 12:18] VITALS: PULSE 86; RESP 24; O2SAT 98
[2024-02-04 12:27] LABS: INR 0.95 (0.85-1.15); PROTHROMBIN TIME 10.3 SEC (9.6-11.6)
[2024-02-04 12:28] LABS: PARTIAL THROMBOPLASTIN TIME 23.5 SEC (26.3-35.5)
[2024-02-04] MEDS ORDERED: PoTASSium chl 10% ELIXIR 20MEQ 20 MEQ/15 ML UDCUP PO PRN (12:30)
[2024-02-04] MEDS ORDERED: IpraTROPium/alBUTERol SULFATE 3 ML SOLUTION IH PRN (12:30)
[2024-02-04] MEDS ORDERED: acetaMINOPHEN 325 MG TAB PO PRN (12:30)
[2024-02-04] MEDS ORDERED: morPHINE 2 MG SYG IVP PRN (12:30)
[2024-02-04] MEDS: ondanSETRON 4MG INJ IVP PRN (12:39)
[2024-02-04] MEDS: 0.9%NACL 1000ML 1,000 ML IV ONE (12:40)
[2024-02-04] MEDS: cefTRIAXone 1G VIAL IVPB SCH (12:40)
[2024-02-04] MEDS: ASPIRIN 81MG CHEW TAB PO SCH (12:45)
[2024-02-04] MEDS: predniSONE 10 MG TABLET PO SCH (12:45)
[2024-02-04] MEDS: dilTIAZem 120MG SR CAP PO SCH (12:46)
--- NOTE | 2024-02-04 12:49 | HMCIMG ---
CHEST 1VW REASON: please assess for infltrates COMPARISON: 05/05/2021 FINDINGS: Single view of the chest was obtained. Lungs are clear. Heart size is normal. There is no pulmonary vascular congestion. Mediastinum and bony thorax appear unremarkable. IMPRESSION: 1. Normal single view chest x-ray.
[2024-02-04] MEDS: ceTIRIzine HCL 5 MG TABLET PO SCH (12:52)
[2024-02-04] MEDS: morPHINE 2 MG SYG IVP PRN (12:53)
--- NOTE | 2024-02-04 13:01 | HP ---
[facility] HISTORY [facility] PHYSICAL Date of Service: Feb 04, 2024 Time of Service: 12:47 HISTORY OF PRESENT ILLNESS: Date of service: 02/04/2024, patient was seen in ER room 12 63-year-old female with underlying history of hypertension, recently diagnosed pulmonary hypertension on continuous O2 supplementation at home, underlying history of heart failure, morbid obesity, obstructive sleep apnea, rheumatoid arthritis maintained on outpatient Humira injections, chronic back pain who presented to the ER for further evaluation of bilateral flank pain. Patient states that symptoms have been ongoing for the past two weeks. She had come to the ER on 01/21/[address] abdomen pelvis without contrast which showed findings of 6 mm stone in the proximal right ureter with no hydronephrosis. She was also found to have bilateral nonobstructing kidney stones in the left and right kidney. Patient states that she was asked to follow up with Urology as outpatient and was discharged on outpatient conservative treatment with hydrocodone and Flomax. She has been not been able to follow up with Urology and she continues to have persistent flank pain. She also reports having cloudy urine as well. Patient has underlying cardiac and pulmonary comorbidities. She is followed by Dr. Ribera with Cardiology as outpatient. She is on outpatient diuretic therapy with Lasix 40 mg b.i.d.. She was diagnosed with pulmonary hypertension earlier this year and is followed by Dr. Carrillo. She has been started on outpatient oxygen therapy for management of pulmonary hypertension. She has noticed that she has gained 40 lb over the last several months and she reports having significant lower extremity edema. She has been maintained on outpatient chronic steroids with prednisone 30 mg daily for management of rheumatoid arthritis and is followed by Rheumatology as outpatient, she is also on outpatient injections with Humira. On presentation to the hospital, patient was noted to be afebrile with T-max of 98.4 F, heart rate of 85, blood pressure of 139/77. Labs on presentation showed WBC count of 9800, hemoglobin of 11.9, platelet count of 555690. BMP remarkable for sodium of 147, potassium 3.2, CO2 40, creatinine of 1.6, and blood glucose of 132. Creatinine on 01/20 was noted to be at 1.1. Patient will be admitted for further management of ANDREA on CKD, concern for volume overload, persistent right renal nephrolithiasis with flank pain, developing UTI. We will request consultation with Cardiology, Urology and Nephrology given multiple underlying comorbidities. We will see how patient progresses in the next 2-3 days. REVIEW OF SYSTEMS CONSTITUTIONAL: Denies fevers, chills, or night sweats. No unintentional weight loss reported. NEUROLOGICAL: Denies headache, amaurosis fugax, motor weakness, sensory deficit, vertigo/spinning sensation, gait abnormalities, or tremors. ENT: No hearing loss, otalgia, otorrhea, rhinitis, rhinorrhea, hoarseness, or sore throat. CARDIOVASCULAR: Lower extremity edema, eight for home oxygen therapy PULMONARY: Denies any shortness of breath, cough, phlegm/sputum, hemoptysis, pleuritic chest pain. SLEEP: Denies morning headaches, daytime somnolence or napping. Denies difficulty falling asleep, staying asleep, waking from sleep. Denies knowledge of snoring. GASTROINTESTINAL: Nausea GENITOURINARY: Persistent Flank pain with dysuria ENDOCRINOLOGIC: Denies polyuria, polydipsia, polyphagia or heat/cold intolerances. HEMATOLOGIC: Denies thrombophilia/previous clots, or coagulopathy/bleeding disorders. ONCOLOGIC: Denies personal history of malignancy. DERMATOLOGIC: Denies rashes or pruritus. PSYCHIATRIC: Denies any suicidal or homicidal ideation. Denies hallucinations. PAST MEDICAL HISTORY: Hypertension, hyperlipidemia, rheumatoid arthritis, chronic back pain, pulmonary hypertension on home O2 therapy, heart failure, morbid obesity, obstructive sleep apnea, type 2 diabetes mellitus, history of chronic outpatient corticosteroid use PAST SURGICAL HISTORY: History of hysterectomy in 2001, previous history of lithotripsy x2, lumbar laminectomy with diskectomy and spinal decompression surgery in 11/2011, cholecystectomy in 2022 PAST SOCIAL HISTORY: Denies active smoking or alcohol consumption, independent with ADLs FAMILY HISTORY: Denies pertinent family history Allergies: Patient reports having allergic reaction to gabapentin Home medications: Family will be bringing home medication list to be reconciled and updated, patient reports being on Lasix 40 b.i.d. and multiple other medications Coded Allergies: No Known Drug Allergies (Verified Allergy, Unknown, 05/21/19) gabapentin (Unverified Allergy, Unknown, 12/28/22) PHYSICAL EXAM GENERAL APPEARANCE: The patient is awake, but appears sleepy, patient recently received IM dose of Benadryl, patient is obese NEUROLOGICAL: Cranial nerves II-XII grossly intact. Motor is 5/5 in bilateral upper and lower extremities proximal to distal. No sensory deficits. HEENT: Face is symmetric. Pupils are equal and reactive. Extraocular movements are intact. NECK: Supple. No JVD. No thyromegaly. No submental, submandibular, pre- /postauricular, occipital or supraclavicular lymphadenopathy. CHEST: Normal chest expansion. No Telemetry. LUNGS: minimal crackles noted at bilateral lung bases CARDIOVASCULAR: Regular. S1 and S2 normal. No appreciable rubs, murmurs or gallops. ABDOMEN: Soft, nontender, and nondistended. There is no rebound, voluntary guarding, or rigidity. : Deferred. No Schuler. EXTREMITIES: Legs are swollen with 2+ pitting edema bilaterally SKIN: No skin breakdown. Vital Sign (Last 24 Hours) 02/04/24 02/04/24 11:02 12:18 Temp 98.4 Pulse 86 Resp 24 B/P (MAP) 141/74 Pulse Ox 97 O2 Delivery N/Cannula Low lpm O2 Flow Rate 2.0 FiO2 28 LABS: Laboratory: Test 02/04/24 10:08 02/04/24 10:05 Range/Units White Blood Count 9.8 4.8-10.8 K/uL Red Blood Count 4.23 4.00-5.50 MIL/uL Hemoglobin 11.9 L 12.0-16.0 g/dL Hematocrit 39.9 36-48 % Mean Corpuscular Volume 94.3 79-99 fL Mean Corpuscular Hemoglobin 28.1 27.0-33.0 pg Mean Corpuscular Hemoglobin Concent 29.8 L 32.0-36.0 g/dL Red Cell Distribution Width 13.7 11.0-15.5 % Platelet Count 228 130-400 K/uL Mean Platelet Volume 9.8 7.5-10.5 fL Immature Granulocyte % (Auto) 0.4 0-1 % Neutrophils (%) (Auto) 64.2 40.0-77.0 % Lymphocytes (%) (Auto) 22.1 21.0-51.0 % Monocytes (%) (Auto) 9.2 3.0-13.0 % Eosinophils (%) (Auto) 3.6 0.0-8.0 % Basophils (%) (Auto) 0.5 0.0-5.0 % Neutrophils # (Auto) 6.3 1.8-7.7 K/uL Lymphocytes # (Auto) 2.2 1.0-4.8 K/uL Monocytes # (Auto) 0.9 0.1-1.0 K/uL Eosinophils # (Auto) 0.35 0.00-0.70 K/uL Basophils # (Auto) 0.05 0.00-0.20 K/uL Absolute Immature Granulocyte (auto 0.04 0-1 K/uL Nucleated Red Blood Cells 0.0 0.0-0.19 % Red Blood Cell Morphology See comments Prothrombin Time 10.3 9.6-11.6 SEC Prothromb Time International Ratio 0.95 0.85-1.15 Activated Partial Thromboplast Time 23.5 L 26.3-35.5 SEC Sodium Level 147 H 136-145 mmol/L Potassium Level 3.2 L 3.5-5.1 mmol/L Chloride Level 101 101-111 mmol/L Carbon Dioxide Level 40 *H 21-32 mmol/L Blood Urea Nitrogen 24 H 7-18 mg/dL Creatinine 1.6 H 0.5-1.0 mg/dL Glomerular Filtration Rate Calc 36 >90 mL/min Random Glucose 132 H 70-105 mg/dL Total Calcium 9.2 8.5-10.1 mg/dL Urine Color LIGHT-YELLOW YELLOW Urine Appearance CLOUDY H CLEAR Urine pH 5.5 5.0-8.0 Urine Specific [place] 1.026 1.001-1.031 Urine Protein 10 H NEGATIVE mg/dL Urine Glucose (UA) NEGATIVE NEGATIVE mg/dL Urine Ketones NEGATIVE NEGATIVE mg/dL Urine Occult Blood +- (TRACE) H NEGATIVE Urine Nitrate NEGATIVE NEGATIVE Urine Bilirubin NEGATIVE NEGATIVE mg/dL Urine Urobilinogen 0.2 0.2-1.0 mg/dL Urine Leukocyte Esterase 75 H NEGATIVE Christina/uL Urine RBC 6-10 H 0-1 /HPF Urine WBC 2-5 H 0-1 /HPF Urine Squamous Epithelial Cells MOD 0-2 /HPF Urine Uric Acid Crystals FEW None Seen /LPF Urine Bacteria None None Seen /HPF Current Medications Medications (Trade) Dose Ordered Sig/Ashanti Route PRN Reason Start Time Stop Time Status Last Admin Dose Admin Acetaminophen (TYLenol 325MG TAB) 650 mg Q6H PRN PO MILD PAIN (1-3) 02/04/24 12:30 03/05/24 12:29 Albuterol (DUOneb) 1 udvial Q6H PRN IH SHORTNESS OF BREATH 02/04/24 12:30 03/05/24 12:29 Aspirin (Aspirin 81mg Chew Tab) 81 mg Q24H PO 02/04/24 12:30 03/05/24 12:29 Ceftriaxone Sodium (ROCEphine 1G INJ) 1 gm Q12H IVPB 02/04/24 12:00 02/14/24 11:59 02/04/24 12:40 1 GM Cetirizine HCl (ZYRtec 5 MG TABLET) 10 mg Q24H PO 02/04/24 13:00 03/05/24 12:59 UNV Diltiazem HCl (CARDIzem 120MG CD) 120 mg Q24H PO 02/04/24 12:30 03/05/24 12:29 Insulin Human Regular (humuLIN R 100 UNIT/ML 3ML) INSULIN SLIDING SCAL... ACHS SQ 02/04/24 16:30 03/05/24 16:29 Isosorbide Mononitrate (Imdur 30mg Sr) 30 mg DAILY PO 02/04/24 15:00 03/05/24 14:59 UNV Metoprolol Succinate (TopROL XL) 25 mg DAILY PO 02/04/24 15:00 03/05/24 14:59 Morphine Sulfate (morPHINE 2MG SYG) 2 mg Q6H PRN IVP SEVERE PAIN (7-10) 02/04/24 12:30 02/04/24 12:27 DC Morphine Sulfate (morPHINE 2MG SYG) 2 mg Q6H PRN IVP SEVERE PAIN (7-10) 02/04/24 12:30 02/11/24 12:29 Ondansetron HCl (zoFRAN 4MG INJ) 4 mg Q6H PRN IVP NAUSEA/VOMITING 02/04/24 12:30 03/05/24 12:29 02/04/24 12:39 4 MG Pantoprazole Sodium (PROTonix 40MG TAB) 40 mg DAILY PO 02/05/24 09:00 03/06/24 08:59 Potassium Chloride 100 ml @ 100 mls/hr AD PRN IV POTASSIUM PROTOCOL 02/04/24 12:30 03/05/24 12:29 Potassium Chloride (K-Dur 10meq Sr Tab) 10 meq AD PRN PO POTASSIUM PROTOCOL 02/04/24 12:30 03/05/24 12:29 Potassium Chloride (KCl 10% Elixir 20meq/15ml) 10 meq AD PRN PO POTASSIUM PROTOCOL 02/04/24 12:30 03/05/24 12:29 Prednisone (deltaSONE/ ORASONE 10MG) 30 mg Q24H PO 02/04/24 12:30 03/05/24 12:29 DIAGNOSTICS / RADIOLOGY: SERVICE 1007 REASON: bilateral flank pain ORDERING PHYSICIAN: RENATA DE ANDA MD PROCEDURE: RENAL - US RENAL SONOGRAM US RENAL SONOGRAM REASON: bilateral flank pain COMPARISON: None TECHNIQUE: Renal and bladder sonogram was performed. FINDINGS: Right kidney is 10.8 x 6.3 x 6.6 cm, left 11.9 x 5.6 x 6.3 cm. There is moderate bilateral renal cortical thinning. There is a 1 cm stone in the right kidney, nonobstructing. There is a 2.6 cm cyst right kidney and a 3.6 cm cyst left kidney. Urinary bladder is only partially distended. Urinary bladder wall appears mildly thickened but this is inconclusive in the a urinary bladder which is not completely distended. IMPRESSION: 1. Mild bilateral renal cortical thinning. It 2. Small cysts, one on each kidney, there is also a nonobstructing 1 cm stone right kidney. 3. No evidence of mass or hydronephrosis. 4. Urinary bladder only partially distended and not well visualized. DICTATED BY: DIANN RUBY MD DATE: 02/04/24 1102 ELECTRONICALLY SIGNED BY: DIANN RUBY ASSESSMENT: ANDREA on CKD, POA Developing urinary tract infection, POA Persistent right renal nephrolithiasis, POA Nonresolving bilateral flank pain, POA Hypernatremia, POA Mild hypokalemia, POA Rule out acute heart failure exacerbation, POA Underlying history of heart failure, POA Underlying history of pulmonary hypertension on continuous O2 therapy as outpatient, POA MARIA TERESA, POA Morbid obesity, POA Hypertension, POA Hyperlipidemia, POA Chronic use of outpatient corticosteroids, POA History of chronic back pain, POA Rheumatoid arthritis, POA History of chronic outpatient use of benzodiazepines, POA PLAN: Patient will be admitted to cardiac telemetry floor Continue with supplemental O2 therapy to maintain oxygen saturation greater than 92% Patient has had deterioration of renal function with hypernatremia and is maintained on outpatient diuretics with Lasix, lower extremities are swollen, we will have Nephrology and Cardiology evaluate this patient with underlying history of heart failure and pulmonary hypertension, I have asked ER to hold any IV fluids, we will start patient on diuretics with Bumex/ Acetazolamide, discussed with Dr. Espinosa We will hold losartan for now until renal function improves We will start patient on IV Rocephin 1 g b.i.d. We will request consultation with Urology, we will await further evaluation with regards to the renal stone, no hydronephrosis was noted on repeat renal ultrasound today Continue with home corticosteroids with prednisone 30 mg daily Morphine 2 mg q.6 hours p.r.n. in in case of severe pain, patient complains of having moderate to severe flank pain and has been using Tylenol with codeine for pain control We will obtain 2D echocardiogram, lower extremity venous Doppler Home medications will be reconciled and updated All labs will be repeated in the morning Discussed with patient to bring her home CPAP machine to use tonight for management of MARIA TERESA Prognosis: Guarded Date of service: 02/04/2024 Plan of care was discussed with patient and family at bedside, Christopher Her MD Advanced Care Planning: Which of the following were discussed: Hospice care: Yes __ No _X_ Therapeutic options: Yes _X_ No __ Advance directives: Yes _X_ No __ Other discussions: Discussed with who?: Patient Voluntary nature of this service was explained to the patient? Yes _x_ No __ Amount of time spent: 20 minutes CHRISTOPHER HER MD Feb 04, 2024 13:01
[2024-02-04 13:13] LABS: ALBUMIN 3.4 g/dL (3.5-5.0); BILIRUBIN,DIRECT 0.1 mg/dL (0.0-0.3); BILIRUBIN,TOTAL 0.5 mg/dL (0.2-1.0); MAGNESIUM 1.8 mg/dL (1.80-2.40); THYROID STIMULATING HORMONE 0.35 uIU/mL (0.36-3.74); TOTAL PROTEIN, SERUM 6.6 g/dL (6.0-8.3)
[2024-02-04 13:18] LABS: HEMOGLOBIN A1C 6.7 % (4.0-6.0)
[2024-02-04] MEDS ORDERED: LOSA25TA41 PO (13:25)
[2024-02-04] MEDS ORDERED: CETI10CA5 PO (13:25)
[2024-02-04] MEDS ORDERED: PRED20TA3 PO (13:25)
[2024-02-04] MEDS ORDERED: ATOR10 PO (13:25)
[2024-02-04] MEDS ORDERED: OMEP20TA20 PO (13:25)
[2024-02-04] MEDS ORDERED: ADAL40SY SQ (13:25)
[2024-02-04] MEDS ORDERED: BUPR-72 PO (13:25)
[2024-02-04] MEDS ORDERED: DULA1.5P SQ (13:25)
[2024-02-04] MEDS ORDERED: METO-408 PO (13:25)
[2024-02-04] MEDS ORDERED: ASPI-1197 PO (13:25)
[2024-02-04] MEDS ORDERED: DILT120C95 PO (13:25)
[2024-02-04] MEDS ORDERED: PREG100C56 PO (13:25)
[2024-02-04] MEDS ORDERED: ISOS30TA11 PO (13:25)
--- NOTE | 2024-02-04 13:35 | EKG ---
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
[2024-02-04] MEDS: BUMETANIDE 1MG/4ML VIAL IVP SCH (13:39)
[2024-02-04] MEDS: acetaZOLAMIDE 500MG VIAL IV SCH (13:39)
[2024-02-04] MEDS: ISOSORBIDE MONO 30MG SR TAB PO SCH (14:49)
[2024-02-04] MEDS: metOPROLol sucCINATE 25 MG TAB.SR.24H PO SCH (14:49)
--- NOTE | 2024-02-04 14:50 | HMCIMG ---
US VENOUS DOPPLER BILATERAL REASON: significant bilateral lower extremity edema COMPARISON: None Technique: Bilateral venous doppler ultrasound was performed with spectral analysis and color flow imaging technique. FINDINGS: There is a normal appearance of the common femoral, deep femoral, the profunda femoris and popliteal veins. Proximal calf veins appear normal as well. There is normal response to compression and augmentation. There is no evidence of deep venous thrombosis. IMPRESSION: Normal bilateral lower extremity venous Doppler ultrasound.
--- NOTE | 2024-02-04 15:48 | NUR ---
DR. HUDSON NOTIFIED
--- NOTE | 2024-02-04 16:24 | CONS ---
[facility] CARDIOLOGY CONSULTATION REPORT Cardiology consultation note dictated for Roscoe Espinosa MD Primary moisture tester: Will Ribera MD Date Patient Seen: Feb 04, 2024 Requesting Physician: Christopher Her MD Reason for Consultation: Pulmonary hypertension, CHF, BLE edema History of Present Illness: This is a 63-year-old female with a past medical history of hypertension, pulmonary hypertension, oxygen-dependent COPD on 2L via [place], obstructive sleep apnea, rheumatoid arthritis, asthma, anxiety, depression, morbid obesity, chronic back pain, chronic bilateral lower extremity edema, possible May-Thurner syndrome, normal coronaries via LHC on 05/09/2021 with RHC demonstrating mild pulmonary hypertension, repeat RHC on 04/28/2022 demonstrated mild pulmonary hypertension that improved from 2021, 2D echo on 11/23/2023 with an EF >55%, Lexiscan stress test on 11/26/2023 demonstrated a mild anterior ischemia, apical infarct versus normal variant apical cleft, and LVEF of 72%, and recently diagnosed bilateral, nonobstructive renal stones on 01/21/[address] of the abdomen who presented to the ED with complaints of continued bilateral flank pain and cloudy urine. The patient was positive for UTI on admission. Cardiology has been consulted for pulmonary hypertension, CHF, and BLE edema. Since yesterday 02/03/2024, the patient has been experiencing progressive, bilateral flank pain that is constant, sharp in nature with a 10/10 intensity. The discomfort is aggravated with movement and decreased with a sacroiliac steroid injection she received yesterday. She noticed she developed cloudy urine and decided to seek medical attention. The patient currently denies chest pain, chest pressure, dizziness, nausea, or vomiting. She states she has chronic shortness of breath and is currently at her baseline with out exacerbation. CRP is elevated 8.70. Procalcitonin is less than 0.05. Creatinine was 1.1 on 01/21/2024 which has increased to 1.6 on 01/04/2024. Past Medical History: RHC in 04/28/2022 with a mean right atrial pressure of 9, RVSP of 39, right ventricular end-diastolic pressure of 11, pulmonary artery pressure of 39/24 with a mean of 29, and a pulmonary capillary wedge pressure of 13 which concluded that the patient had mild pulmonary hypertension and mildly elevated pulmonary capillary wedge pressure which improved from previous evaluation in 2021, severe dyspnea appeared to be from another cause Past Surgical History: Hysterectomy Cholecystectomy Back surgery Kidney stent Family History: The patient's father was diagnosed with heart disease. The patient's mother had hypertension. The patient's sibling as cardiomyopathy. Social History: The patient lives family. Habits: The patient denies alcohol, tobacco, or illicit drug use. Home Meds: Aspirin 81 mg daily Atorvastatin 10 mg daily Diltiazem 120 mg ER daily Isosorbide dinitrate 30 mg daily [id number] mg daily Metoprolol [id number] mg daily Trulicity 1.5 mg subQ daily Omeprazole 20 mg daily Prednisone 20 mg daily Lyrica 100 mg daily Wellbutrin 150 mg daily Zyrtec 10 mg daily Humira 40 mg subQ daily Current Meds: Current Medications Medications Dose Ordered Sig/Ashanti Start Time Stop Time Status Last Admin Ceftriaxone Sodium 1 gm Q12H 02/04/24 12:00 02/14/24 11:59 02/04/24 12:40 Acetaminophen 650 mg Q6H PRN 02/04/24 12:30 03/05/24 12:29 Ondansetron HCl 4 mg Q6H PRN 02/04/24 12:30 03/05/24 12:29 02/04/24 12:39 Morphine Sulfate 2 mg Q6H PRN 02/04/24 12:30 02/11/24 12:29 02/04/24 12:53 Potassium Chloride 100 ml @ 100 mls/hr AD PRN 02/04/24 12:30 03/05/24 12:29 Potassium Chloride 10 meq AD PRN 02/04/24 12:30 03/05/24 12:29 Potassium Chloride 10 meq AD PRN 02/04/24 12:30 03/05/24 12:29 Albuterol 1 udvial Q6H PRN 02/04/24 12:30 03/05/24 12:29 Pantoprazole Sodium 40 mg DAILY 02/05/24 09:00 03/06/24 08:59 Diltiazem HCl 120 mg Q24H 02/04/24 12:30 03/05/24 12:29 02/04/24 12:46 Aspirin 81 mg Q24H 02/04/24 12:30 03/05/24 12:29 02/04/24 12:45 Insulin Human Regular INSULIN SLIDING SCAL... ACHS 02/04/24 16:30 03/05/24 16:29 Prednisone 30 mg Q24H 02/04/24 12:30 03/05/24 12:29 02/04/24 12:45 Metoprolol Succinate 25 mg DAILY 02/04/24 15:00 03/05/24 14:59 02/04/24 14:49 Cetirizine HCl 10 mg Q24H 02/04/24 13:00 03/05/24 12:59 02/04/24 12:52 Isosorbide Mononitrate 30 mg DAILY 02/04/24 15:00 03/05/24 14:59 02/04/24 14:49 Acetazolamide Sodium 500 mg DAILY 02/04/24 13:30 02/07/24 13:29 02/04/24 13:39 Bumetanide 1 mg Q8H 02/04/24 13:30 03/05/24 13:29 02/04/24 13:39 Atorvastatin Calcium 10 mg DAILY 02/05/24 09:00 03/06/24 08:59 Bupropion HCl 150 mg DAILY 02/05/24 09:00 03/06/24 08:59 Clonazepam 0.5 mg HSPRN PRN 02/04/24 15:30 03/05/24 15:29 Pregabalin 100 mg DAILY 02/05/24 09:00 03/06/24 08:59 Miscellaneous Medication 1 tab DAILY 02/05/24 09:00 03/06/24 08:59 UNV Review of Systems: CONST: No fever, fatigue, or weight changes. EYES: No recent vision problems. ENT: No congestion, ear pain, or sore throat. C/V: No chest pain, palpitations, or edema. RESP: No cough, congestion, wheezing or shortness of breath. GI: No abdominal pain, nausea, vomiting, constipation, or diarrhea. : No incontinence or dysuria. Admits to bilateral flank pain SKIN: No rash. NEURO: No headache, focal numbness or weakness, dizziness, or seizures. PSYCH: No depression or anxiety. HEME: No abnormal bruising or bleeding. LYMPH: No swollen glands. Physical Examination: GENERAL: No acute distress. HEAD: Normal with no signs of head trauma. EYES: PERRLA, EOMI, conjunctiva and sclera normal. ENT: Hearing grossly intact, normal oropharynx. NECK: Supple without JVD. There is no tenderness, lymphadenopathy, or masses. No thyromegaly. Normal carotid upstrokes without bruits. LUNGS: Coarse breath sounds bilaterally. On 2L of o2 via [place] HEART: Normal rate and rhythm. Normal S1 and S2 without murmurs, gallop or rub. +s4 VASC: Unable to palpate bilateral DP pulses. BLE with 2-3+ edema ABD: Bowel sounds normal, soft, nontender, no masses, no organomegaly. No audible bruits. : Not examined LYMPH: No lymphadenopathy noted. EXT: No clubbing, cyanosis or edema. SKIN: No rashes or lesions noted. NEURO: Awake, alert, and oriented x3. No focal sensory or strength deficits noted. Vital Signs (last 8hr) Date Time Temp Pulse Resp B/P (MAP) Pulse Ox O2 Delivery O2 Flow Rate FiO2 02/04/24 13:32 98.4 84 24 146/68 97 Nasal Cannula* 2.0 N/A 02/04/24 12:18 86 24 N/Cannula Low lpm 2.0 02/04/24 11:02 98.4 82 16 141/74 97 Nasal Cannula* 2 28 02/04/24 09:38 98.4 85 16 139/77 97 Room Air* 0 21 02/04/24 09:26 98.4 85 16 139/77 97 Nasal Cannula 2.0 Laboratory: Hematology Labs: Test 02/04/24 10:08 Range/Units White Blood Count 9.8 4.8-10.8 K/uL Red Blood Count 4.23 4.00-5.50 MIL/uL Hemoglobin 11.9 L 12.0-16.0 g/dL Hematocrit 39.9 36-48 % Mean Corpuscular Volume 94.3 79-99 fL Mean Corpuscular Hemoglobin 28.1 27.0-33.0 pg Mean Corpuscular Hemoglobin Concent 29.8 L 32.0-36.0 g/dL Red Cell Distribution Width 13.7 11.0-15.5 % Platelet Count 228 130-400 K/uL Mean Platelet Volume 9.8 7.5-10.5 fL Immature Granulocyte % (Auto) 0.4 0-1 % Neutrophils (%) (Auto) 64.2 40.0-77.0 % Lymphocytes (%) (Auto) 22.1 21.0-51.0 % Monocytes (%) (Auto) 9.2 3.0-13.0 % Eosinophils (%) (Auto) 3.6 0.0-8.0 % Basophils (%) (Auto) 0.5 0.0-5.0 % Neutrophils # (Auto) 6.3 1.8-7.7 K/uL Lymphocytes # (Auto) 2.2 1.0-4.8 K/uL Monocytes # (Auto) 0.9 0.1-1.0 K/uL Eosinophils # (Auto) 0.35 0.00-0.70 K/uL Basophils # (Auto) 0.05 0.00-0.20 K/uL Absolute Immature Granulocyte (auto 0.04 0-1 K/uL Nucleated Red Blood Cells 0.0 0.0-0.19 % Red Blood Cell Morphology See comments Erythrocyte Sedimentation Rate 6 0-30 MM/HR Chemistry Labs: Test 02/04/24 10:08 Range/Units Sodium Level 147 H 136-145 mmol/L Potassium Level 3.2 L 3.5-5.1 mmol/L Chloride Level 101 101-111 mmol/L Carbon Dioxide Level 40 *H 21-32 mmol/L Blood Urea Nitrogen 24 H 7-18 mg/dL Creatinine 1.6 H 0.5-1.0 mg/dL Glomerular Filtration Rate Calc 36 >90 mL/min Random Glucose 132 H 70-105 mg/dL Hemoglobin A1c 6.7 H 4.0-6.0 % Estimated Average Glucose (eAG) 146 H 70-126 mg/dL Total Calcium 9.2 8.5-10.1 mg/dL Magnesium Level 1.80 1.80-2.40 mg/dL Total Bilirubin 0.5 0.2-1.0 mg/dL Direct Bilirubin 0.1 0.0-0.3 mg/dL Aspartate Amino Transf (AST/SGOT) 14 10-37 U/L Alanine Aminotransferase (ALT/SGPT) 25 12-78 U/L Alkaline Phosphatase 80 50-136 U/L Total Creatine Kinase 62 # 21-232 U/L Troponin I High Sensitivity 19.6 4-50 ng/L C-Reactive Protein, Quantitative 8.70 H 0.5-3.0 mg/L B-Type Natriuretic Peptide 16 0-100 pg/mL Total Protein 6.6 6.0-8.3 g/dL Albumin 3.4 L 3.5-5.0 g/dL Procalcitonin < 0.05 L 0.05-0.5 ng/mL Thyroid Stimulating Hormone (TSH) 0.35 L 0.36-3.74 uIU/mL Free Thyroxine (T4) Direct 1.05 0.76-1.46 ng/dL Free Triiodothyronine (T3) pg/mL 2.92 2.18-3.98 pg/mL Coagulation Labs: Test 02/04/24 10:08 Range/Units Prothrombin Time 10.3 9.6-11.6 SEC Prothromb Time International Ratio 0.95 0.85-1.15 Activated Partial Thromboplast Time 23.5 L 26.3-35.5 SEC Diagnostics / Radiology: Impression and Plan: Right nonobstructing, nephrolithiasis via renal US on 02/04/2024 UTI ANDREA, Creatinine was 1.1 on 01/21/2024 which has increased to 1.6 on 01/04/2024 HTN Mild pulmonary hypertension Oxygen-dependent COPD on 2L via [place] Obstructive sleep apnea Rheumatoid arthritis Asthma Anxiety Depression Morbid obesity Chronic back pain Chronic bilateral lower extremity edema Possible May-Thurner syndrome Normal coronaries via LHC on 05/09/2021 with RHC demonstrating mild pulmonary hypertension Repeat RHC on 04/28/2022 demonstrated mild pulmonary hypertension that improved from 2021, 2D echo on 11/23/2023 with an EF >55% Lexiscan stress test on 11/26/2023 demonstrated a mild anterior ischemia, apical infarct versus normal variant apical cleft, and LVEF of 72% Bilateral, nonobstructive renal stones on 01/21/[address] of the abdomen Mild pulmonary hypertension RHC in 04/28/2022 with a mean right atrial pressure of 9, RVSP of 39, right ventricular end-diastolic pressure of 11, pulmonary artery pressure of 39/24 with a mean of 29, and a pulmonary capillary wedge pressure of 13 which concluded that the patient had mild pulmonary hypertension and mildly elevated pulmonary capillary wedge pressure which improved from previous evaluation in 2021, severe dyspnea appeared to be from another cause -Review echocardiogram results when available to evaluate changes in RSVP -Continue diltiazem 120mg ER daily Suspected acute on chronic diastolic heart failure Chest x-ray was benign CRP is elevated 8.70, Procalcitonin is less than 0.05. -Add BNP to am labs -Acetazolamide 500 mg IV daily x3 -Bumex 1 mg IV every 8 hours -CMP and Mg in AM, trend renal function -An echocardiogram to assess LV function was ordered by the medical team -Continue home medications of Metoprolol succinate 25mg daily -Hold home medication Losartan due to ANDREA Chronic BLE edema is suspected to be May-Thurner syndrome -Bilateral lower extremity venous Doppler on 02/04/2024 was negative for DVT [employer] Feb 04, 2024 16:24
[2024-02-04] MEDS: INSULIN humuLIN R 100 UNIT/ML 3ML SQ SCH (16:30)
[2024-02-04] MEDS: PoTASSium chloRIDE 10MEQ SR 10 MEQ/TAB TAB.SR.24H PO PRN (17:16)
[2024-02-04 18:38] LABS: CREATININE 1.5 mg/dL (0.5-1.0); POTASSIUM 3.6 mmol/L (3.5-5.1)
--- NOTE | 2024-02-04 20:03 | NUR ---
DR. PATRICIA AND DR. ESPARZA AT BEDSIDE AT THIS TIME
[2024-02-04 21:29] VITALS: PULSE 78; RESP 20; O2SAT 100
[2024-02-04] MEDS: clonazePAM 0.5 MG TABLET PO PRN (22:29)
[2024-02-05] VITALS (10 sets, daily range): BP systolic 107–122; BP diastolic 51–66; PULSE 75–88; RESP 18–26; TEMP 97.4–98.2; O2SAT 96–100
--- NOTE | 2024-02-05 01:50 | NUR ---
Report Received report from Jose Armando YANES. States consent for right sided nephrostomy insertion still pending. Nephrology consult still pending. 2D echo ordered since morning of 02/04/2024 still pending.
--- NOTE | 2024-02-05 01:56 | NUR ---
HAND OFF REPORT GIVEN TO DICKSON YANES AT THIS TIME. PT GOING TO ROOM [id number]
--- NOTE | 2024-02-05 02:10 | NUR ---
Patient arrived on floor Patient arrived to floor at this time. Patient able to ambulate from stretcher to bed. 4+ edema noted to BLE. Strong pedal pulses noted bilaterally. Patient placed on 2L via nasal cannula, sating 96%. Noted 20G to left forearm and 22G to right hand, both saline locked. Patient requested bedside commode, provided to patient. Patient brought personal CPAP machine from home. Provided patient with sterile water and placed on CPAP. Bed in lowest setting, locked in place. Side rails up x2. Call light within reach.
--- NOTE | 2024-02-05 02:30 | NUR ---
Consent Obtained consent for right side nephrostomy insertion at this time.
[2024-02-05 05:13] LABS: BASOPHILS # (AUTO) 0.01 K/uL (0.00-0.20); BASOPHILS % (AUTO) 0.1 % (0.0-5.0); HEMATOCRIT 35.6 % (36-48); IMMATURE GRANULOCYTE ABSOLUTE 0.03 K/uL (0-1); LYMPHOCYTES # (AUTO) 2.1 K/uL (1.0-4.8); LYMPHOCYTES % (AUTO) 23.9 % (21.0-51.0); MEAN CORPUSCULAR HEMOGLOBIN 27.9 pg (27.0-33.0); MEAN CORPUSCULAR HGB CONC 30.6 g/dL (32.0-36.0); MONOCYTES # (AUTO) 0.7 K/uL (0.1-1.0); MONOCYTES % (AUTO) 8.2 % (3.0-13.0); NEUTROPHILS # (AUTO) 5.9 K/uL (1.8-7.7); NEUTROPHILS % (AUTO) 67.5 % (40.0-77.0); PLATELET COUNT (AUTO) 216 K/uL (130-400); RED BLOOD CELL COUNT(AUTO) 3.91 MIL/uL (4.00-5.50); RED CELL DISTRIBUTION WIDTH 13.6 % (11.0-15.5); WHITE BLOOD COUNT (AUTO) 8.7 K/uL (4.8-10.8)
[2024-02-05 05:19] LABS: INR 0.97 (0.85-1.15); PROTHROMBIN TIME 10.5 SEC (9.6-11.6)
[2024-02-05 05:20] LABS: PARTIAL THROMBOPLASTIN TIME 23.5 SEC (26.3-35.5)
[2024-02-05 05:25] LABS: BILIRUBIN,TOTAL 0.4 mg/dL (0.2-1.0); CREATININE 1.7 mg/dL (0.5-1.0); MAGNESIUM 1.9 mg/dL (1.80-2.40); POTASSIUM 3.4 mmol/L (3.5-5.1)
--- NOTE | 2024-02-05 06:21 | CONS ---
This is an emergency consultation in the Emergency Room. REQUESTING PHYSICIAN: Christopher Her MD REASON FOR CONSULTATION: Right flank pain. HISTORY OF PRESENT ILLNESS: This is a 63-year-old female admitted to the hospital because of recurrent right flank pain, was present in the Emergency Room on 01/21/2024, with similar complaints. CT scan showed a 6 mm proximal ureteric stone with no hydronephrosis. The patient was discharged home after pain resolved with pain medication, however, the pain has now reoccurred and she comes in now with shortness of breath with exacerbation of congestive heart failure and pulmonary hypertension as well. The patient encountered lying in bed comfortably. She has recently received morphine. She reports having had a history of bilateral kidney stones, bilateral stent placement, ureteroscopy in the past. ALLERGIES: Recorded as being none. PAST MEDICAL HISTORY: Includes hyperlipidemia, hypertension, rheumatoid arthritis, chronic back pain, kidney stones, obstructive sleep apnea, morbid obesity. PAST SURGICAL HISTORY: Significant for laminectomy, cholecystectomy as well as ureteroscopy, stone basketing and stent placement in the past. MEDICATIONS: The patient's current medications include Lasix. She has also been placed in the hospital on Rocephin, albuterol, aspirin, cetirizine, diltiazem, insulin, isosorbide, morphine, pantoprazole. PAST SURGICAL HISTORY: Significant for lumbar laminectomy, diskectomy, spinal decompression, cholecystectomy and ureteroscopy. SOCIAL HISTORY: , no children. Does not smoke or drink. REVIEW OF SYSTEMS: She does have shortness of breath. She does have chest pain. Her appetite is poor. She does have nausea. She has no vomiting, no constipation or diarrhea. No headaches. PHYSICAL EXAMINATION: GENERAL: Morbidly obese female in moderate distress. VITAL SIGNS: Temperature is 98, blood pressure 141/74 with a pulse of 98. NECK: Has no adenopathy or supraclavicular masses palpable. LUNGS: Gutierrez have basal crepitations. ABDOMEN: Morbidly obese. BACK: Has no CVA tenderness at this time. EXTERNAL GENITALIA: Deferred. RECTAL: Deferred. LABORATORY DATA: Shows a white count of 10, hematocrit is 39, patient's platelet count is 228. The patient's sodium 147, potassium 3.2, BUN and creatinine are 24/1.6. Urinalysis shows light yellow urine, specific gravity of 1.026, pH of 5, glucose and ketones are negative. Nitrates were negative. She has a few white cells and red cells, about 6-10 rbc's and white cells present. IMAGING STUDIES: Reviewed today include an ultrasound of the kidneys that suggests some cortical thinning, bilateral renal cysts and possibly a stone in the proximal ureter on the right side. The CT scan done a little bit about 2 weeks ago shows a 6 mm proximal ureteric stone with no hydronephrosis. ASSESSMENT: * Renal colic, right side. * Exacerbation of heart failure with shortness of breath and pulmonary edema. * Pulmonary hypertension. * Immunosuppression, on treatment for rheumatoid arthritis. RECOMMENDATIONS: * The patient to have a noncontrast CT scan abdomen and pelvis. * Proceed with Interventional Radiology placement of nephrostomy tube, right side. * Correct shortness of breath and congestive heart failure exacerbation. * The patient is advised to proceed with nephrostomy tube placement because likely in her current state she will probably be better served with local anesthesia rather than being placed under general anesthesia in view of her cardiac status. * The patient's concerns and questions answered. Once her kidney drainage has been accomplished, ultimately will need to follow up with urologist of her choice or myself for definitive therapy of her obstructing right kidney stone. Thank you for the opportunity for providing consultation on your patient. TID: [id number] RECEIPT: [id number]
--- NOTE | 2024-02-05 06:32 | NUR ---
RBS 124 mg/dL No insulin coverage needed at this time per insulin sliding scale.
--- NOTE | 2024-02-05 06:40 | NUR ---
Pain Patient complaint of pain score 7/10 to right flank area. Morphine 2mg IV push given at this time. Patient requesting anti nausea medication at this time.
--- NOTE | 2024-02-05 06:45 | NUR ---
Nausea Patient given zofran 4mg IV push at this time.
--- NOTE | 2024-02-05 08:48 | NUR ---
Advised Dr Mcmanus in reference to an order for a right nephrotue insertion ordered by Dr Menard. Spoke with nurse Cage with Dr. Mcmanus recomendation. Patient is not a candidate for nephrotube at this point due to current imaging and lab work. Advised nurse Cage if any question arise from Dr. Menard, Dr. Mcmanus phone number was provide to do a one to one by physicians.
--- NOTE | 2024-02-05 08:50 | NUR ---
CALL RECEIVED FROM LINDA ABOUT DR MENDEZ'S RECOMMENDATIONS BEFORE NEPHROSTOMY TUBE PLACEMENT. VANESSA STATED THERE IS NO INDICATION FOR NEPHROSTOMY TUBE. PAGED DR ESPARZA'S OFFICE TO LET THEM KNOW DR MENDEZ'S RECS. PAGE BACK RECEIVED FROM LINDSEY. PENDING CT ABD/PEL W/O CONTRAST FOR CLEARER IMAGING TO SEE IF RADIOLOGIST WILL BE MOVING FORWARD WITH NEPHROSTOMY TUBE PLACEMENT. PLAN OF CARE ON GOING.
[2024-02-05] MEDS: pregABALin 100 MG CAPSULE PO SCH (09:00)
[2024-02-05] MEDS ORDERED: ISOSORBIDE DINITRATE PO SCH (09:00)
[2024-02-05] MEDS: buPROPion HCL 150 MG TABLET.SA PO SCH (09:00)
[2024-02-05] MEDS: atorVAStatin 10 MG TABLET PO SCH (09:00)
[2024-02-05] MEDS: PANTOPrazole 40 MG TAB DR PO SCH (09:00)
--- NOTE | 2024-02-05 09:53 | CONS ---
REFERRING PHYSICIAN: Dr. Her. REASON FOR CONSULTATION: Renal failure. HISTORY OF PRESENT ILLNESS: A 63-year-old female with a history of hypertension. The patient also with a history of known sleep apnea. The patient presented to the hospital with flank pain. The patient was found to have nephrolithiasis. The patient is being seen by Urology. Laboratory values revealed an elevated BUN and creatinine and the patient is being seen in consultation for all the above. PAST MEDICAL HISTORY: Rheumatoid arthritis, hypertension, COPD, diabetes mellitus. PAST SURGICAL HISTORY: Hysterectomy, lithotripsy, back surgery. SOCIAL HISTORY: No tobacco use. FAMILY HISTORY: There is no renal disease in the family. ALLERGIES: SHE HAS AN ALLERGY TO NEURONTIN. MEDICATIONS: All noted. REVIEW OF SYSTEMS: GENERAL: The patient is feeling weak and tired. HEENT: No change in vision. No change in hearing, no nasal discharge, no sore throat. CARDIOVASCULAR: There is no current chest pain or palpitations. PULMONARY: She has chronic shortness of breath. GASTROINTESTINAL: She is tolerating diet. MUSCULOSKELETAL: Complains of weakness. NEUROLOGIC: No seizures or focal deficits. PSYCHIATRIC: No history of hallucinations, psychosis. ENDOCRINE: Diabetes mellitus. No history of thyroid disease. PHYSICAL EXAMINATION: VITAL SIGNS: Blood pressure 112/51, pulse 70s. GENERAL: She is a chronically ill female, obese, lying in bed, on medical floor. HEENT: Head is atraumatic. Pupils equal, roving to light. Oropharynx is without exudate. Nares clear. NECK: There is no JVP. There is no thyromegaly, no mass. CARDIOVASCULAR: Regular. There is no S3, S4 gallop. LUNGS: Coarse with equal thoracic movement. ABDOMEN: Soft, nondistended, nontender. EXTREMITIES: Revealed no clubbing, no cyanosis. NEUROLOGICAL: She is awake. She is alert. She is oriented. SKIN: Reveals no rash or nodules. BACK: There is no CVA tenderness, no back deformities. LABORATORY DATA: Sodium 146, potassium 3.4, BUN 26, creatinine 1.7. Hemoglobin 10, hematocrit 35. Renal ultrasound does reveal nephrolithiasis. IMPRESSION: * Renal dysfunction. * Nephrolithiasis. * Electrolyte abnormalities. * Diabetes mellitus. PLAN: The patient's IV fluids will be switched to half normal saline at 100 mL per hour as the patient does have some mild hyponatremia. The patient with underlying nephrolithiasis and workup is ongoing per Urology. The patient's electrolytes have all been aggressively repleted. The patient does have significant anemia. We will check iron levels in the a.m. The patient with multiple questions, all of which were answered. TID: [id number] RECEIPT: [id number]
--- NOTE | 2024-02-05 11:22 | PN ---
[facility] PROGRESS NOTE Date of Service: Feb 05, 2024 Time of Service: 10:53 SUBJECTIVE:- The patient is a 63-year-old female with a past medical history of hypertension, type 2 diabetes mellitus, pulmonary hypertension on continuous O2 at home, congestive heart failure, morbid obesity with BMI 48.4 kg/m2, obstructive sleep apnea uses CPAP at home, rheumatoid arthritis on chronic steroids and Humira injections, chronic back pain presented to emergency department at [facility] [place] yesterday for the evaluation of the bilateral flank pain of the past 2 weeks. She had an ER visit on 01/20 with the similar complaints were CT abdomen and pelvis without contrast was done which showed 6 mm stone in the proximal right ureter with no hydronephrosis. She was treated with hydrocodone and Flomax and was told to follow urologist outpatient. She did not follow the urologist and continues to have a persistent pain along with a cloudy appearance of urine. * She follows Dr. Ribera cardiology as outpatient for CHF, and due to bilateral lower extremity edema, he increase the dose of Lasix to 40 mg b.i.d. * She was recently diagnosed with pulmonary hypertension and following Dr. Carrillo and has been on oxygen therapy at home. She reported 40 lb weight gain over last several months and reports having significant bilateral lower extremity edema. * She also sees a soaker helper for rheumatoid arthritis and has been on chron ic steroids with prednisone 30 mg daily and Humira injections. On presentation, significant labs for sodium of 147, potassium 3.2, creatinine 1.6, BNP normal of 16. Creatinine on 01/20 was 1.1. Renal ultrasound showed small cyst, once on each kidney and nonobstructive 1 cm stone in the right kidney, no evidence of mass or hydronephrosis. Urinalysis showed cloudy appearance, trace occult blood, small leukocyte esterase, RBCs 6-10, WBC 2-5, urine squamous epithelial cells moderate and few uric acid crystals. Venous Doppler for negative for any evidences of thrombosis. Cardiology consult was made due to underlying heart failure and pulmonary hypertension, urology and nephrology consult was made due to persistent nephrolithiasis. She was admitted for the management of ANDREA on CKD, concern for volume overload, persistent right nephrolithiasis developing UTI. 02/05/24- The patient was examined today, with family at bedside. She is lying on the bed, does not seem to be in distress, however is complaining about the pelvic pain. Her vitals have been nonsignificant except slightly tachypneic respiratory rate from 22-24. She has been on 2 L of nasal cannula * Per Cardiology note, the patient has a mild hypertension and the recommendations were made to continue diltiazem. For chronic diastolic heart failure continue IV diuretics. She also has a bilateral lower extremity edema suspected to be May-Thurner syndrome. * Per Urology note, the patient needs a right nephrostomy tube replacement. The procedure was supposed to happened last night after CT scan however the patient did not go for CT scan yesterday because she feels claustrophobic and needs anxiolytics before the procedure which she did not receive yesterday. No follow up was done, CT scan was canceled however and was done today * Per nephrology, she was started with 100 cc/hour IV fluids, and need further workup for possible iron-deficiency anemia. Labs: Sodium 146, potassium 3.4, carbon dioxide 38, BUN 26, creatinine went up to 1.7 from 1.6, GFR 34, normal liver enzymes, albumin 3.0. Assessment and plan discussed below. REVIEW OF SYSTEMS CONSTITUTIONAL: Denies fevers, chills, or night sweats. No unintentional weight loss reported. NEUROLOGICAL: Denies headache, amaurosis fugax, motor weakness, sensory deficit, vertigo/spinning sensation, gait abnormalities, or tremors. ENT: No hearing loss, otalgia, otorrhea, rhinitis, rhinorrhea, hoarseness, or so re throat. CARDIOVASCULAR: Lower extremity edema, PULMONARY: Denies any shortness of breath, cough, phlegm/sputum, hemoptysis, pleuritic chest pain. SLEEP: Denies morning headaches, daytime somnolence or napping. Denies difficulty falling asleep, staying asleep, waking from sleep. Denies knowledge of snoring. GASTROINTESTINAL: Nausea GENITOURINARY: Persistent Flank pain with dysuria ENDOCRINOLOGIC: Denies polyuria, polydipsia, polyphagia or heat/cold intolerances. HEMATOLOGIC: Denies thrombophilia/previous clots, or coagulopathy/bleeding disorders. ONCOLOGIC: Denies personal history of malignancy. DERMATOLOGIC: Denies rashes or pruritus. PSYCHIATRIC: Denies any suicidal or homicidal ideation. Denies hallucinations. PHYSICAL EXAM GENERAL APPEARANCE: The patient is awake, but appears sleepy, patient recently received IM dose of Benadryl, patient is obese NEUROLOGICAL: Cranial nerves II-XII grossly intact. Motor is 5/5 in bilateral upper and lower extremities proximal to distal. No sensory deficits. HEENT: Face is symmetric. Pupils are equal and reactive. Extraocular movements are intact. NECK: Supple. No JVD. No thyromegaly. No submental, submandibular, pre- /postauricular, occipital or supraclavicular lymphadenopathy. CHEST: Normal chest expansion. No Telemetry. LUNGS: minimal crackles noted at bilateral lung bases CARDIOVASCULAR: Regular. S1 and S2 normal. No appreciable rubs, murmurs or gallops. ABDOMEN: Soft, nontender, and nondistended. There is no rebound, voluntary guarding, or rigidity. : Deferred. No Schuler. EXTREMITIES: Legs are swollen with 2+ pitting edema bilaterally SKIN: No skin breakdown. Vital Signs (last 8hr) Date Time Temp Pulse Resp B/P (MAP) Pulse Ox O2 Delivery O2 Flow Rate FiO2 02/05/24 08:00 98.2 77 18 112/51 97 02/05/24 08:00 97.3 80 20 107/53 99 Nasal Cannula 2.0 02/05/24 07:06 78 24 N/Cannula Low lpm 2.0 LABS: Laboratory: Test 02/05/24 05:18 02/05/24 04:54 02/04/24 10:08 02/04/24 10:05 Range/Units Whole Blood Glucose 124 H 70-110 MG/DL Bedside Glucose Comment Notified Nurse White Blood Count 8.7 4.8-10.8 K/uL Red Blood Count 3.91 L 4.00-5.50 MIL/uL Hemoglobin 10.9 L 12.0-16.0 g/dL Hematocrit 35.6 L 36-48 % Mean Corpuscular Volume 91.0 79-99 fL Mean Corpuscular Hemoglobin 27.9 27.0-33.0 pg Mean Corpuscular Hemoglobin Concent 30.6 L 32.0-36.0 g/dL Red Cell Distribution Width 13.6 11.0-15.5 % Platelet Count 216 130-400 K/uL Mean Platelet Volume 10.1 7.5-10.5 fL Immature Granulocyte % (Auto) 0.3 0-1 % Neutrophils (%) (Auto) 67.5 40.0-77.0 % Lymphocytes (%) (Auto) 23.9 21.0-51.0 % Monocytes (%) (Auto) 8.2 3.0-13.0 % Eosinophils (%) (Auto) 0.0 0.0-8.0 % Basophils (%) (Auto) 0.1 0.0-5.0 % Neutrophils # (Auto) 5.9 1.8-7.7 K/uL Lymphocytes # (Auto) 2.1 1.0-4.8 K/uL Monocytes # (Auto) 0.7 0.1-1.0 K/uL Eosinophils # (Auto) 0.00 0.00-0.70 K/uL Basophils # (Auto) 0.01 0.00-0.20 K/uL Absolute Immature Granulocyte (auto 0.03 0-1 K/uL Nucleated Red Blood Cells 0.0 0.0-0.19 % Prothrombin Time 10.5 9.6-11.6 SEC Prothromb Time International Ratio 0.97 0.85-1.15 Activated Partial Thromboplast Time 23.5 L 26.3-35.5 SEC Sodium Level 146 H 136-145 mmol/L Potassium Level 3.4 L 3.5-5.1 mmol/L Chloride Level 102 101-111 mmol/L Carbon Dioxide Level 38 H 21-32 mmol/L Blood Urea Nitrogen 26 H 7-18 mg/dL Creatinine 1.7 H 0.5-1.0 mg/dL Glomerular Filtration Rate Calc 34 >90 mL/min Random Glucose 127 H 70-105 mg/dL Total Calcium 8.7 8.5-10.1 mg/dL Magnesium Level 1.90 1.80-2.40 mg/dL Total Bilirubin 0.4 0.2-1.0 mg/dL Aspartate Amino Transf (AST/SGOT) 12 10-37 U/L Alanine Aminotransferase (ALT/SGPT) 25 12-78 U/L Alkaline Phosphatase 72 50-136 U/L Total Protein 6.0 6.0-8.3 g/dL Albumin 3.0 L 3.5-5.0 g/dL Red Blood Cell Morphology See comments Erythrocyte Sedimentation Rate 6 0-30 MM/HR Hemoglobin A1c 6.7 H 4.0-6.0 % Estimated Average Glucose (eAG) 146 H 70-126 mg/dL Direct Bilirubin 0.1 0.0-0.3 mg/dL Total Creatine Kinase 62 # 21-232 U/L Troponin I High Sensitivity 19.6 4-50 ng/L C-Reactive Protein, Quantitative 8.70 H 0.5-3.0 mg/L B-Type Natriuretic Peptide 16 0-100 pg/mL Procalcitonin < 0.05 L 0.05-0.5 ng/mL Thyroid Stimulating Hormone (TSH) 0.35 L 0.36-3.74 uIU/mL Free Thyroxine (T4) Direct 1.05 0.76-1.46 ng/dL Free Triiodothyronine (T3) pg/mL 2.92 2.18-3.98 pg/mL Urine Color LIGHT-YELLOW YELLOW Urine Appearance CLOUDY H CLEAR Urine pH 5.5 5.0-8.0 Urine Specific [place] 1.026 1.001-1.031 Urine Protein 10 H NEGATIVE mg/dL Urine Glucose (UA) NEGATIVE NEGATIVE mg/dL Urine Ketones NEGATIVE NEGATIVE mg/dL Urine Occult Blood +- (TRACE) H NEGATIVE Urine Nitrate NEGATIVE NEGATIVE Urine Bilirubin NEGATIVE NEGATIVE mg/dL Urine Urobilinogen 0.2 0.2-1.0 mg/dL Urine Leukocyte Esterase 75 H NEGATIVE Christina/uL Urine RBC 6-10 H 0-1 /HPF Urine WBC 2-5 H 0-1 /HPF Urine Squamous Epithelial Cells MOD 0-2 /HPF Urine Uric Acid Crystals FEW None Seen /LPF Urine Bacteria None None Seen /HPF Current Medications Medications (Trade) Dose Ordered Sig/Ashanti Route PRN Reason Start Time Stop Time Status Last Admin Dose Admin Acetaminophen (TYLenol 325MG TAB) 650 mg Q6H PRN PO MILD PAIN (1-3) 02/04/24 12:30 03/05/24 12:29 Acetazolamide Sodium (DIAmox 500MG INJ) 500 mg DAILY IV 02/04/24 13:30 02/07/24 13:29 02/05/24 09:29 500 MG Albuterol (DUOneb) 1 udvial Q6H PRN IH SHORTNESS OF BREATH 02/04/24 12:30 03/05/24 12:29 Aspirin (Aspirin 81mg Chew Tab) 81 mg Q24H PO 02/04/24 12:30 03/05/24 12:29 02/04/24 12:45 81 MG Atorvastatin Calcium (LIPItor 10MG) 10 mg DAILY PO 02/05/24 09:00 03/06/24 08:59 Bumetanide (Bumex 1mg Vial) 1 mg Q8H IVP 02/04/24 13:30 03/05/24 13:29 02/05/24 05:33 1 MG Bupropion HCl (WellBUTrin SR 150MG) 150 mg DAILY PO 02/05/24 09:00 03/06/24 08:59 Ceftriaxone Sodium (ROCEphine 1G INJ) 1 gm Q12H IVPB 02/04/24 12:00 02/14/24 11:59 02/05/24 00:29 1 GM Cetirizine HCl (ZYRtec 5 MG TABLET) 10 mg Q24H PO 02/04/24 13:00 03/05/24 12:59 02/04/24 12:52 10 MG Clonazepam (clonazePAM 0.5 mg) 0.5 mg HSPRN PRN PO ANXIETY/AGITATION 02/04/24 15:30 03/05/24 15:29 02/04/24 22:29 0.5 MG Diltiazem HCl (CARDIzem 120MG CD) 120 mg Q24H PO 02/04/24 12:30 03/05/24 12:29 02/04/24 12:46 120 MG Insulin Human Regular (humuLIN R 100 UNIT/ML 3ML) INSULIN SLIDING SCAL... ACHS SQ 02/04/24 16:30 03/05/24 16:29 Isosorbide Mononitrate (Imdur 30mg Sr) 30 mg DAILY PO 02/04/24 15:00 03/05/24 14:59 02/05/24 09:29 30 MG Metoprolol Succinate (TopROL XL) 25 mg DAILY PO 02/04/24 15:00 03/05/24 14:59 02/05/24 09:29 25 MG Miscellaneous Medication (Isosorbide Dinitrate ) 1 tab DAILY PO 02/05/24 09:00 02/04/24 17:04 DC Morphine Sulfate (morPHINE 2MG SYG) 2 mg Q6H PRN IVP SEVERE PAIN (7-10) 02/04/24 12:30 02/04/24 12:27 DC Morphine Sulfate (morPHINE 2MG SYG) 2 mg Q6H PRN IVP SEVERE PAIN (7-10) 02/04/24 12:30 02/11/24 12:29 02/05/24 06:40 2 MG Ondansetron HCl (zoFRAN 4MG INJ) 4 mg Q6H PRN IVP NAUSEA/VOMITING 02/04/24 12:30 03/05/24 12:29 02/05/24 06:45 4 MG Pantoprazole Sodium (PROTonix 40MG TAB) 40 mg DAILY PO 02/05/24 09:00 03/06/24 08:59 Potassium Chloride 100 ml @ 100 mls/hr AD PRN IV POTASSIUM PROTOCOL 02/04/24 12:30 03/05/24 12:29 Potassium Chloride (K-Dur 10meq Sr Tab) 10 meq AD PRN PO POTASSIUM PROTOCOL 02/04/24 12:30 03/05/24 12:29 02/04/24 17:16 10 MEQ Potassium Chloride (KCl 10% Elixir 20meq/15ml) 10 meq AD PRN PO POTASSIUM PROTOCOL 02/04/24 12:30 03/05/24 12:29 Prednisone (deltaSONE/ ORASONE 10MG) 30 mg Q24H PO 02/04/24 12:30 03/05/24 12:29 02/04/24 12:45 30 MG Pregabalin (LYRica 100MG) 100 mg DAILY PO 02/05/24 09:00 03/06/24 08:59 Sodium Chloride 1,000 ml @ 100 mls/hr Q10H IV 02/05/24 10:00 03/06/24 09:59 DIAGNOSTICS / RADIOLOGY: [place] [address] IMAGING REPORT Signed PATIENT: STEW LAKE MR#: [id number] : 1960 SEX: F AGE: 63 LOCATION: [facility] ORDER 1007 STATUS: REG ER REPORT#: [id number] SERVICE 1007 REASON: bilateral flank pain ORDERING PHYSICIAN: RENATA DE ANDA MD PROCEDURE: RENAL - US RENAL SONOGRAM US RENAL SONOGRAM REASON: bilateral flank pain COMPARISON: None TECHNIQUE: Renal and bladder sonogram was performed. FINDINGS: Right kidney is 10.8 x 6.3 x 6.6 cm, left 11.9 x 5.6 x 6.3 cm. There is moderate bilateral renal cortical thinning. There is a 1 cm stone in the right kidney, nonobstructing. There is a 2.6 cm cyst right kidney and a 3.6 cm cyst left kidney. Urinary bladder is only partially distended. Urinary bladder wall appears mildly thickened but this is inconclusive in the a urinary bladder which is not completely distended. IMPRESSION: 1. Mild bilateral renal cortical thinning. It 2. Small cysts, one on each kidney, there is also a nonobstructing 1 cm stone right kidney. 3. No evidence of mass or hydronephrosis. 4. Urinary bladder only partially distended and not well visualized. DICTATED BY: DIANN RUBY MD DATE: 02/04/24 1102 ELECTRONICALLY SIGNED BY: DIANN RUBY MD DATE: 02/04/24 1111 [place] [address] [address] [employer] [id number] IMAGING REPORT Signed PATIENT: STEW LAKE MR#: [id number] : 1960 SEX: F AGE: 63 LOCATION: [facility] ORDER 1205 STATUS: ADM IN REPORT#: [id number] SERVICE 1200 REASON: significant bilateral lower extremity edema ORDERING PHYSICIAN: LOR PATRICIA MD PROCEDURE: VENOUS PAULETTE - US VENOUS DOPPLER BILATERAL US VENOUS DOPPLER BILATERAL REASON: significant bilateral lower extremity edema COMPARISON: None Technique: Bilateral venous doppler ultrasound was performed with spectral analysis and color flow imaging technique. FINDINGS: There is a normal appearance of the common femoral, deep femoral, the profunda femoris and popliteal veins. Proximal calf veins appear normal as well. There is normal response to compression and augmentation. There is no evidence of deep venous thrombosis. IMPRESSION: Normal bilateral lower extremity venous Doppler ultrasound. DICTATED BY: DIANN RUBY MD DATE: 02/04/24 1448 ELECTRONICALLY SIGNED BY: DIANN RUBY MD DATE: 02/04/24 1451 [place] [address] [id number] IMAGING REPORT Signed PATIENT: STEW LAKE MR#: [id number] : 1960 SEX: F AGE: 63 LOCATION: [facility] ORDER 06 STATUS: REG REPORT#: [id number] SERVICE 04 REASON: please assess for infltrates ORDERING PHYSICIAN: LOR PATRICIA MD PROCEDURE: CXR1VW - CHEST 1VW CHEST 1VW REASON: please assess for infltrates COMPARISON: 05/05/2021 FINDINGS: Single view of the chest was obtained. Lungs are clear. Heart size is normal. There is no pulmonary vascular congestion. Mediastinum and bony thorax appear unremarkable. IMPRESSION: 1. Normal single view chest x-ray. DICTATED BY: DIANN RUBY MD DATE: 02/04/241246 ELECTRONICALLY SIGNED BY: DIANN RUBY MD DATE: 02/04/241248 ASSESSMENT: ANDREA on CKD, POA Developing urinary tract infection, POA Persistent right renal nephrolithiasis, POA Nonresolving bilateral flank pain, POA Hypernatremia, POA Mild hypokalemia, POA Rule out acute heart failure exacerbation, POA Underlying history of heart failure, POA Underlying history of pulmonary hypertension on continuous O2 therapy as outpatient, POA MARIA TERESA, POA Morbid obesity with BMI 48.4 kg/m2, POA Hypertension, POA Hyperlipidemia, POA Chronic use of outpatient corticosteroids, POA History of chronic back pain, POA Rheumatoid arthritis, POA History of chronic outpatient use of benzodiazepines, POA PLAN:- The Patient remains admitted on the medical surgical floor. ADNREA on CKD, POA Developing urinary tract infection, POA Persistent right renal nephrolithiasis, POA Nonresolving bilateral flank pain, POA * The patient is going for right nephrostomy tube placement tomorrow AM. * Continue with 0.45% Na Cl 50 cc/hour and re-evaluate tomorrow * Urinalysis was ordered as the previous sample had moderate epithelial cells. Follow up when the results are available. * Restrict oral fluid intake to 1.5 L a day. * Continue with p.r.n. morphine and Tylenol for the pain Rule out acute heart failure exacerbation, POA Underlying history of heart failure, POA * Continue with acetazolamide 500 mg IV daily for 3 days * Continue with Bumex 1 mg IV every 8 hours * Continue home medications of metoprolol succinate 25 mg daily * Hold home medication losartan due to ANDREA * Echocardiogram was done, results are pending Pulmonary hypertension * Continue with supplemental O2 therapy to maintain oxygen saturation greater than 92% Obstructive sleep apnea Morbid obesity, BMI 48.4 kg per m2 * Continue with CPAP at night for breathing support Rheumatoid arthritis * Continue with prednisone 30 mg daily * Home medications were reconciled and resumed * P.r.n. medications for nausea, pain * Continue with insulin sliding scale for hyperglycemia * Continue with the atorvastatin 10 mg, aspirin 81 mg * Replace electrolytes per protocol * AM labs: CBC, BMP We will continue with IV diuretics, Follow up tomorrow AM for the symptoms post nephrostomy insertion and decide disposition ATTESTATION BY PHYSICIAN I have seen and examined the patient. I reviewed the documentation, medical decision making, and treatment plan as noted by the resident provider above. I agree with the findings and plan of care. Yoshi Barcenas MD, MANALI MD Feb 05, 2024 11:22
--- NOTE | 2024-02-05 11:30 | NUR ---
CT RESULTS CT RESULTS DISCUSSED WITH PRIMARY TEAM, RESIDENT IS AWARE. REACHED OUT TO REVENUE COORDINATOR AND LET LINDA KNOW ABOUT CT RESULTS, STATED HE WILL RELAY INFORMATION TO DR MENDEZ AND WILL GIVE ME A CALL BACK. LINDA PAGED PRIMARY NURSE AND STATED DR MENDEZ WILL BE MOVING FORWARD WITH NEPHROSTOMY TUBE PLACEMENT BUT IT WILL HAVE TO BE RESCHEDULED FOR TOMORROW 02/06/24. PRIMARY TEAM AWARE, PATIENT IS AWARE. PLAN OF CARE ON GOING.
--- NOTE | 2024-02-05 12:45 | HMCIMG ---
CT ABDOMEN/PELVIS W/O CONTRAST REASON: Bilateral flank pain, Nephrolithiasis COMPARISON: 02/21/2024 FINDINGS: Lung bases are clear. There are no focal liver lesions. The liver is not enlarged.. Spleen and pancreas appear unremarkable. There has been a previous cholecystectomy. There is mild to moderate right hydronephrosis. There is a 6 mm stone in the proximal right ureter at the level of the lower pole of the right kidney. There is an additional 2 mm nonobstructing stone in an upper pole calyx on the right and there are several very small stones lower pole calyx on the right as well. Left kidney appears unremarkable with the exception of a small cyst upper pole. Bowel loops appear unremarkable. This includes normal appearance of the appendix There is no evidence of free fluid or intraperitoneal air. There are no focal fluid collections. Aorta and retroperitoneum appear normal as do pelvic soft tissue structures. The anterior abdominal wall is intact. Osseous structures appear unremarkable. IMPRESSION: 1. 6 mm right ureteral stone at the level of the lower pole right kidney, there is mild to moderate right hydronephrosis. 2. There are several additional very small nonobstructing stones in the right kidney, there are small bilateral cysts as well. 3. Absent gallbladder. CT was performed with one or more following dose reduction techniques: automated exposure control, adjustment of the mA and kv according to patient's size, or use of a iterative reconstruction technique.
[2024-02-05] MEDS: 1/2 NS 1000ML 1,000 ML IV SCH (13:11)
--- NOTE | 2024-02-05 14:26 | HMCSR ---
APPROVED REPORT EXAM: Two-dimensional and M-mode echocardiogram with Doppler and color Doppler. INDICATION ICD: pulmonary hypertension Heart Failure 2D Dimensions RVDd3.7 cmLVEF(%)63.7 (>50%)LVED Vol(simp.)80.4 mL IVSd1.2 (0.7-1.1cm)FS(%)35 %LVES Vol(simp.)30.3 mL LVDd4.9 (3.8-5.6cm)LA (2D)4.0 (1.6-4.0cm)LVEF(%, simp.)62 % PWd1.0 (0.7-1.1cm)Ao Root(2D)3.1 (2.0-3.7cm)LA ESV INDEX (4CH)21.70 mL/m2 IVSs1.6 cmLVOT diam2.4 (1.8-2.4cm)LA ESV INDEX (2CH)21.30 mL/m2 LVDs3.2 (2.5-4.0cm)LA ESV INDEX (BP)23.70 mL/m2 PWs1.6 cm Deformation Strain Apical 422.0 % Apical 224.0 % Apical 324.0 % Global Iibctw85.0 % M-Mode Dimensions EPSS0.6 cm LA (MM)3.6 (1.6-4.0cm) Ao Root(MM)3.6 (2.0-3.7cm) Aortic Valve AoV VTI0.3 mAo Mean GR5.0 mmHgLVOT VTI0.25 m CHRISTOPHER (VMAX)3.5 cm2AVA (VTI) 3.5 cm2 Mitral Valve MV E Vmax94.6 cm/sDECEL Dwry073 ms MV A Vmax59.7 cm/sP 1/2 T87 ms E/A ratio1.6MVA (PHT)2.5 cm2 MR Max PG51 mmHg TDI E/E' Bawsjd51.0E/E' Lateral9.8 Medial E' Peak V7.90 cm/sLateral E' Peak V9.70 cm/s Pulmonary Valve PV Vmax1.0 m/s PV Peak GR4.1 mmHg Left Ventricle The left ventricle is normal size. GLS -23%. There is normal left ventricular wall thickness. Septal bounce is present. LVEF is55-60%. The left ventricular diastolic function is normal. Right Ventricle The right ventricle is normal size. The right ventricular systolic function is normal. Atria The left atrium size is normal. The right atrium size is normal. Aortic Valve The aortic valve is normal in structure. No aortic regurgitation is present. There is no aortic valvu lar stenosis. Mitral Valve The mitral valve is normal in structure. Trace mitral regurgitation. There is no mitral valve stenosi s. Tricuspid Valve The tricuspid valve is normal in structure. There is no tricuspid valve regurgitation noted. Pulmonic Valve The pulmonary valve is normal in structure. There is no pulmonic valvular regurgitation. Great Vessels The aortic root is normal in size. The IVC is dilated and collapses >50% with inspiration. Pericardium There is no pericardial effusion. Other Information Quality : GoodRhythm : NSR Conclusion LVEF is55-60%. Septal bounce is present. The left ventricular diastolic function is normal. Trace mitral regurgitation. Estiamted pulmonary pressure is within normal range
--- NOTE | 2024-02-05 20:30 | NUR ---
Pain Patient reported pain score of 7/10 to right flank area. Also requesting to have anti nausea medicine. Morphine 2mg IV push and Zofran 4mg IV push given to 20G to left forearm.
--- NOTE | 2024-02-05 21:06 | NUR ---
RBS 121 mg/dL No insulin coverage needed at this time per insulin sliding scale.
--- NOTE | 2024-02-05 21:30 | NUR ---
Pain assessment Patient denies any discomfort at this time. Patient noted resting on left side. CPAP in place. Respirations even and unlabored.
[2024-02-06] VITALS (8 sets, daily range): BP systolic 106–132; BP diastolic 60–87; PULSE 70–85; RESP 17–24; TEMP 98–98.3; O2SAT 94–99
--- NOTE | 2024-02-06 02:41 | NUR ---
Pain/Nausea Patient reported pain score 7/10 to right flank area. Morphine 2mg IV push administered. Patient also requested anti nausea medicine. Zofran 4mg IV push administered.
--- NOTE | 2024-02-06 03:41 | NUR ---
Pain assessment Patient continues with pain score of 7/10 to right flank area. Will contact abalone fisherman for [facility] for further pain management.
--- NOTE | 2024-02-06 04:22 | NUR ---
Pain Called [facility]. Spoke with Ganga Jain TRAINING AND DEVELOPMENT HEAD, advised of patient's continued complaint of pain. As per Ganga TRAINING AND DEVELOPMENT HEAD: give morphine 2mg IV push x1 dose. Orders noted and carried out.
[2024-02-06] MEDS: morPHINE 2 MG SYG IVP ONE (04:27)
--- NOTE | 2024-02-06 04:27 | NUR ---
Pain Morphine 2mg IV push administered now per Ganga Jain EDI PROGRAMMER orders for pain score of 7/10 to right flank area. Patient noted sitting at bedside with CPAP in place. Voiced will not be laying down the rest of the morning. Will continue to monitor. Call light within reach.
[2024-02-06 05:14] LABS: BASOPHILS # (AUTO) 0.04 K/uL (0.00-0.20); BASOPHILS % (AUTO) 0.4 % (0.0-5.0); EOSINOPHILS # (AUTO) 0.18 K/uL (0.00-0.70); EOSINOPHILS % (AUTO) 1.8 % (0.0-8.0); HEMATOCRIT 37.5 % (36-48); IMMATURE GRANULOCYTE ABSOLUTE 0.04 K/uL (0-1); LYMPHOCYTES # (AUTO) 3.2 K/uL (1.0-4.8); LYMPHOCYTES % (AUTO) 31.9 % (21.0-51.0); MEAN CORPUSCULAR HGB CONC 30.1 g/dL (32.0-36.0); MEAN CORPUSCULAR VOLUME 93.1 fL (79-99); MONOCYTES % (AUTO) 10.2 % (3.0-13.0); NEUTROPHILS # (AUTO) 5.6 K/uL (1.8-7.7); NEUTROPHILS % (AUTO) 55.3 % (40.0-77.0); PLATELET COUNT (AUTO) 223 K/uL (130-400); RED BLOOD CELL COUNT(AUTO) 4.03 MIL/uL (4.00-5.50); RED CELL DISTRIBUTION WIDTH 13.7 % (11.0-15.5); WHITE BLOOD COUNT (AUTO) 10.1 K/uL (4.8-10.8)
[2024-02-06 05:25] LABS: CREATININE 2.3 mg/dL (0.5-1.0); POTASSIUM 3.2 mmol/L (3.5-5.1)
[2024-02-06 05:27] LABS: % IRON SATURATION 22.9 % (22-44)
--- NOTE | 2024-02-06 05:27 | NUR ---
Pain assessment Patient denies any pain or discomfort at this time.
--- NOTE | 2024-02-06 06:42 | NUR ---
RBS 100 mg/dL No insulin coverage needed at this time per insulin sliding scale.
--- NOTE | 2024-02-06 07:22 | PN ---
[facility] CARDIOLOGY PROGRESS NOTE Date Patient Seen: Feb 06, 2024 Time of Visit: 07:11 Problem List: [ ] Interval History: [Patient states she presented to the hospital because of left flank pain over my kidney . She denies shortness of breath or edema as an indication for her hospitalization, but these have been evaluated while she was here. She has been thought to have heart failure because of edema and previous known history of PCW 13 at her most recent heart catheterization in 2022. With diuresis her creatinine has risen from 1.5-2.3 and her edema is unchanged. The patient is on isosorbide, diltiazem, and metoprolol. I do not see an indication for any of these drugs; the patient denies any history of atrial fibrillation or other arrhythmias, she has a coronary arteriogram two years ago showing normal coronary anatomy, and it does not appear the medications are used for hypertension. The patient has had mild pulmonary hypertension with pulmonary artery pressure 39, improved a year later, and she is asleep apnea patient who is sleep apnea probably accounts for the original diagnosis of pulmonary hyp ertension. Diltiazem is not, to my knowledge, a commonly used pulmonary hypertension drug and I do not see the efficacy of isosorbide either. From the initial cardiology consult the following past medical history was summarized: This is a 63-year-old female with a past medical history of hypertension, pulmonary hypertension, oxygen-dependent COPD on 2L via NH, obstructive sleep apnea, rheumatoid arthritis, asthma, anxiety, depression, morbid obesity, chronic back pain, chronic bilateral lower extremity edema, possible May-Thurner syndrome, normal coronaries via LHC on 05/09/2021 with RHC demonstrating mild pulmonary hypertension, repeat RHC on 04/28/2022 demonstrated mild pulmonary hypertension that improved from 2021, 2D echo on 11/23/2023 with an EF >55%, Lexiscan stress test on 11/26/2023 demonstrated a mild anterior ischemia, apical infarct versus normal variant apical cleft, and LVEF of 72%, and recently diagnosed bilateral, nonobstructive renal stones on 01/21/[address] of the abdomen who presented to the ED with complaints of continued bilateral flank pain and cloudy urine. The patient was positive for UTI on admission.] Physical Examination: GENERAL: [No acute distress. Morbidly obese, resting in a chair] HEAD: [Normal with no signs of head trauma.] EYES: [PERRLA, EOMI, conjunctiva and sclera normal.] ENT: [Hearing grossly intact] NECK: [Can not assess neck veins because of obesity. Carotid volume is normal.] LUNGS: [Clear breath sounds bilaterally. There are no rales or dullness. No whee zes, or rhonchi.] HEART: [Normal rate and rhythm. N distant S1 and S2 without mumurs, gallop or rub.] VASC: [Three to 4+ bipedal edema.] ABD: [Protuberant abdomen with normal bowel sounds.] : [Not examined] LYMPH: [No lymphadenopathy noted.] EXT: [Three to 4+ bipedal edema.] SKIN: [Stasis dermatitis.] NEURO: [Awake, alert, and oriented x3.] Laboratory: [ ] Hematology Labs: Test 02/06/24 05:03 02/04/24 10:08 Range/Units White Blood Count 10.1 4.8-10.8 K/uL Red Blood Count 4.03 4.00-5.50 MIL/uL Hemoglobin 11.3 L 12.0-16.0 g/dL Hematocrit 37.5 36-48 % Mean Corpuscular Volume 93.1 79-99 fL Mean Corpuscular Hemoglobin 28.0 27.0-33.0 pg Mean Corpuscular Hemoglobin Concent 30.1 L 32.0-36.0 g/dL Red Cell Distribution Width 13.7 11.0-15.5 % Platelet Count 223 130-400 K/uL Mean Platelet Volume 9.8 7.5-10.5 fL Immature Granulocyte % (Auto) 0.4 0-1 % Neutrophils (%) (Auto) 55.3 40.0-77.0 % Lymphocytes (%) (Auto) 31.9 21.0-51.0 % Monocytes (%) (Auto) 10.2 3.0-13.0 % Eosinophils (%) (Auto) 1.8 0.0-8.0 % Basophils (%) (Auto) 0.4 0.0-5.0 % Neutrophils # (Auto) 5.6 1.8-7.7 K/uL Lymphocytes # (Auto) 3.2 1.0-4.8 K/uL Monocytes # (Auto) 1.0 0.1-1.0 K/uL Eosinophils # (Auto) 0.18 0.00-0.70 K/uL Basophils # (Auto) 0.04 0.00-0.20 K/uL Absolute Immature Granulocyte (auto 0.04 0-1 K/uL Nucleated Red Blood Cells 0.0 0.0-0.19 % Red Blood Cell Morphology See comments Erythrocyte Sedimentation Rate 6 0-30 MM/HR Chemistry Labs: Test 02/06/24 05:51 02/06/24 05:03 02/05/24 04:54 02/04/24 10:08 Range/Units Whole Blood Glucose 100 70-110 MG/DL Bedside Glucose Comment Notified Nurse Sodium Level 145 136-145 mmol/L Potassium Level 3.2 L 3.5-5.1 mmol/L Chloride Level 103 101-111 mmol/L Carbon Dioxide Level 36 H 21-32 mmol/L Blood Urea Nitrogen 36 H 7-18 mg/dL Creatinine 2.3 H 0.5-1.0 mg/dL Glomerular Filtration Rate Calc 23 >90 mL/min Random Glucose 117 H 70-105 mg/dL Total Calcium 9.0 8.5-10.1 mg/dL Iron Level 78 50-170 mcg/dL Total Iron Binding Capacity 340 250-450 mcg/dL Percent Iron Saturation 22.9 22-44 % Magnesium Level 1.90 1.80-2.40 mg/dL Total Bilirubin 0.4 0.2-1.0 mg/dL Aspartate Amino Transf (AST/SGOT) 12 10-37 U/L Alanine Aminotransferase (ALT/SGPT) 25 12-78 U/L Alkaline Phosphatase 72 50-136 U/L Total Protein 6.0 6.0-8.3 g/dL Albumin 3.0 L 3.5-5.0 g/dL Hemoglobin A1c 6.7 H 4.0-6.0 % Estimated Average Glucose (eAG) 146 H 70-126 mg/dL Direct Bilirubin 0.1 0.0-0.3 mg/dL Total Creatine Kinase 62 # 21-232 U/L Troponin I High Sensitivity 19.6 4-50 ng/L C-Reactive Protein, Quantitative 8.70 H 0.5-3.0 mg/L B-Type Natriuretic Peptide 16 0-100 pg/mL Procalcitonin < 0.05 L 0.05-0.5 ng/mL Thyroid Stimulating Hormone (TSH) 0.35 L 0.36-3.74 uIU/mL Free Thyroxine (T4) Direct 1.05 0.76-1.46 ng/dL Free Triiodothyronine (T3) pg/mL 2.92 2.18-3.98 pg/mL Coagulation Labs: Test 02/05/24 04:54 Range/Units Prothrombin Time 10.5 9.6-11.6 SEC Prothromb Time International Ratio 0.97 0.85-1.15 Activated Partial Thromboplast Time 23.5 L 26.3-35.5 SEC Diagnostics / Radiology: [Copy/Paste Echos/Imaging Report here] Impression and Plan: [I think the patient has May-Thurner syndrome and she may have mild diastolic heart failure and mild pulmonary hypertension, but these are attributable to sleep apnea and chronic pulmonary issues, and they are not a main focus of her care. I will discontinue isosorbide, metoprolol, and diltiazem. I will discontinue diuretics for now but a small dose of diuretic orally may be appropriate after renal function recovers. I will pursue May-Thurner syndrome as a cause for her edema after renal recovery and after resolution of the flank pain that prompted her hospitalization. This can be done as an inpatient or as an outpatient. ] AMY AGUILAR MD Feb 06, 2024 07:22
[2024-02-06 09:18] LABS: APPEARANCE,URINE CLEAR (CLEAR); BILIRUBIN,URINE NEGATIVE (NEGATIVE); COLOR,URINE COLORLESS (YELLOW); GLUCOSE, URINE (UA) NEGATIVE (NEGATIVE); KETONES,URINE NEGATIVE (NEGATIVE); LEUKOCYTE ESTERASE ,URINE NEGATIVE Leu/uL (NEGATIVE); NITRATE,URINE NEGATIVE (NEGATIVE); OCCULT BLOOD,URINE SMALL (NEGATIVE); PROTEIN,URINE NEGATIVE (NEGATIVE); UROBILINOGEN,URINE 0.2 mg/dL (0.2-1.0)
[2024-02-06 09:23] LABS: ADD UA MICROSCOPIC YES
[2024-02-06 09:26] LABS: RBC,URINE 26-50 /HPF (0-1); SQUAMOUS EPITHELIAL CELL,UR RARE /HPF (0-2); UNCLASSIFIED CRYSTAL 1 /HPF (None Seen)
--- NOTE | 2024-02-06 11:55 | PN ---
SUBJECTIVE: A 63-year-old female with multiple medical conditions. The patient initially presented to the hospital and found to have acute renal failure. The patient was found to have nephrolithiasis. The patient is being seen by Urology. She has had acute on chronic renal dysfunction in the hospital. Creatinine has been elevated. She remains on the gentle hydration and the patient is being seen as a followup visit for all of the above. REVIEW OF SYSTEMS: GENERAL: She is feeling weak and tired. HEENT: No change in vision. No change in hearing. CARDIOVASCULAR: No current chest pains or palpitations. PULMONARY: No shortness of breath. GASTROINTESTINAL: She is tolerating a diet. MUSCULOSKELETAL: Complains of weakness. PHYSICAL EXAMINATION: VITAL SIGNS: Blood pressure 114/60, pulse in the 70s. GENERAL: She is a chronically ill, obese female, lying in bed on the medical floor. HEENT: Head is atraumatic. Pupils equal, roving to light. Oropharynx is without exudate. Nares clear. NECK: There is no JVP. There is no thyromegaly, no mass. CARDIOVASCULAR: Regular. There is no S3, S4 gallop. LUNGS: Coarse with equal thoracic movement. ABDOMEN: Soft, nondistended, nontender. EXTREMITIES: Reveal no clubbing, no cyanosis. NEUROLOGIC: She is awake. She is alert. She is at her baseline. LABORATORY DATA: Hemoglobin 11, hematocrit 37. Sodium 145, potassium 3.2, BUN 36, creatinine 2.3. IMPRESSION: * Acute on chronic renal failure. * Nephrolithiasis with obstructive uropathy. * Hypertension. * Known sleep apnea. PLAN: The patient with worsening renal dysfunction overnight. The patient is being seen by Urology. She continues with the IV hydration. We will continue to follow the patient closely. Electrolytes have all been aggressively repleted. The patient and family at the bedside. Multiple questions were all answered. TID: [id number] RECEIPT: [id number]
[2024-02-06] MEDS: hydroMORPHone 1 MG INJ IVP PRN (12:50)
--- NOTE | 2024-02-06 12:53 | HMCIMG ---
US RENAL SONOGRAM REASON: r/o right renal hydronephrosis COMPARISON: None TECHNIQUE: Renal and bladder sonogram performed. FINDINGS: Right kidney is 10 x 5.6 x 6.4 cm, left 10.6 x 4.7 x 5.1 cm. There is a 2.6 cm cyst lower pole right kidney and a 3.1 cm cyst upper pole left kidney. There are no focal masses. There is mild hydronephrosis on the right. This is better seen on previous day's CT scan. There is no hydronephrosis on the left. IMPRESSION: 1. Mild right-sided hydronephrosis. 2. Small bilateral cysts. 3. Urinary bladder only partially distended and not well visualized.
[2024-02-06] MEDS: furoSEMIDE 40MG VIAL ONE (14:20)
--- NOTE | 2024-02-06 15:48 | PN ---
[facility] PROGRESS NOTE Date of Service: Feb 06, 2024 Time of Service: 11:00 SUBJECTIVE:- The patient is a 63-year-old female with a past medical history of hypertension, type 2 diabetes mellitus, pulmonary hypertension on continuous O2 at home, congestive heart failure, morbid obesity with BMI 48.4 kg/m2, obstructive sleep apnea uses CPAP at home, rheumatoid arthritis on chronic steroids and Humira injections, chronic back pain presented to emergency department at [facility] yesterday for the evaluation of the bilateral flank pain of the past 2 weeks. She had an ER visit on 01/20 with the similar complaints were CT abdomen and pelvis without contrast was done which showed 6 mm stone in the proximal right ureter with no hydronephrosis. She was treated with hydrocodone and Flomax and was told to follow urologist outpatient. She did not follow the urologist and continues to have a persistent pain along with a cloudy appearance of urine. * She follows Dr. Ribera cardiology as outpatient for CHF, and due to bilateral lower extremity edema, he increase the dose of Lasix to 40 mg b.i.d. * She was recently diagnosed with pulmonary hypertension and following Dr. Carrillo and has been on oxygen therapy at home. She reported 40 lb weight gain over last several months and reports having significant bilateral lower extremity edema. * She also sees a wall taper for rheumatoid arthritis and has been on chron ic steroids with prednisone 30 mg daily and Humira injections. On presentation, significant labs for sodium of 147, potassium 3.2, creatinine 1.6, BNP normal of 16. Creatinine on 01/20 was 1.1. Renal ultrasound showed small cyst, once on each kidney and nonobstructive 1 cm stone in the right kidney, no evidence of mass or hydronephrosis. Urinalysis showed cloudy appearance, trace occult blood, small leukocyte esterase, RBCs 6-10, WBC 2-5, urine squamous epithelial cells moderate and few uric acid crystals. Venous Doppler for negative for any evidences of thrombosis. Cardiology consult was made due to underlying heart failure and pulmonary hypertension, urology and nephrology consult was made due to persistent nephrolithiasis. She was admitted for the management of ANDREA on CKD, concern for volume overload, persistent right nephrolithiasis developing UTI. 02/05/24- The patient was examined today, with family at bedside. She is lying on the bed, does not seem to be in distress, however is complaining about the pelvic pain. Her vitals have been nonsignificant except slightly tachypneic respiratory rate from 22-24. She has been on 2 L of nasal cannula * Per Cardiology note, the patient has a mild hypertension and the recommendations were made to continue diltiazem. For chronic diastolic heart failure continue IV diuretics. She also has a bilateral lower extremity edema suspected to be May-Thurner syndrome. * Per Urology note, the patient needs a right nephrostomy tube replacement. The procedure was supposed to happened last night after CT scan however the patient did not go for CT scan yesterday because she feels claustrophobic and needs anxiolytics before the procedure which she did not receive yesterday. No follow up was done, CT scan was canceled however and was done today * Per nephrology, she was started with 100 cc/hour IV fluids, and need further workup for possible iron-deficiency anemia. Labs: Sodium 146, potassium 3.4, carbon dioxide 38, BUN 26, creatinine went up to 1.7 from 1.6, GFR 34, normal liver enzymes, albumin 3.0. Assessment and plan discussed below. 02/06/24- The patient was examined today, with family on the bedside. She has been on morphine, however complaining of still excruciating pain, 11/02 at present. The patient was supposed to go for right nephrostomy tube placement however per Dr. Arevalo and the radiologist conversations, she will be first going for IVP with diuresis to evaluate the intensity or severity of hydronephrosis. Based on that, nephrostomy tube placement decision will be made. Labs: Sodium 145, potassium 3.2, BUN went up to 36 from 6, creatinine went up to 2.3 From 1.7, GFR went down to 23 from 34. Due to worsening of renal functions, the crusher loader operator discontinued Bumex. Also Dr. Ribera does not think the patient should be on isosorbide dinitrate, metoprolol. She has mild pulmonary hypertension and he also does not think diltiazem is the first-line medication without underlying AFib. He thinks causes of bilateral edema is due to May-Thurner syndrome which can be managed inpatient or outpatient after improvement in renal functions. Recommendations will be followed. Further assessment and plan discussed below. REVIEW OF SYSTEMS CONSTITUTIONAL: Denies fevers, chills, or night sweats. No unintentional weight loss reported. NEUROLOGICAL: Denies headache, amaurosis fugax, motor weakness, sensory deficit, vertigo/spinning sensation, gait abnormalities, or tremors. ENT: No hearing loss, otalgia, otorrhea, rhinitis, rhinorrhea, hoarseness, or so re throat. CARDIOVASCULAR: Lower extremity edema, PULMONARY: Denies any shortness of breath, cough, phlegm/sputum, hemoptysis, pleuritic chest pain. SLEEP: Denies morning headaches, daytime somnolence or napping. Denies difficulty falling asleep, staying asleep, waking from sleep. Denies knowledge of snoring. GASTROINTESTINAL: Nausea GENITOURINARY: Persistent Flank pain with dysuria ENDOCRINOLOGIC: Denies polyuria, polydipsia, polyphagia or heat/cold intolerances. HEMATOLOGIC: Denies thrombophilia/previous clots, or coagulopathy/bleeding disorders. ONCOLOGIC: Denies personal history of malignancy. DERMATOLOGIC: Denies rashes or pruritus. PSYCHIATRIC: Denies any suicidal or homicidal ideation. Denies hallucinations. PHYSICAL EXAM GENERAL APPEARANCE: The patient is awake, but appears sleepy, patient recently received IM dose of Benadryl, patient is obese NEUROLOGICAL: Cranial nerves II-XII grossly intact. Motor is 5/5 in bilateral upper and lower extremities proximal to distal. No sensory deficits. HEENT: Face is symmetric. Pupils are equal and reactive. Extraocular movements are intact. NECK: Supple. No JVD. No thyromegaly. No submental, submandibular, pre- /postauricular, occipital or supraclavicular lymphadenopathy. CHEST: Normal chest expansion. No Telemetry. LUNGS: minimal crackles noted at bilateral lung bases CARDIOVASCULAR: Regular. S1 and S2 normal. No appreciable rubs, murmurs or gallops. ABDOMEN: Soft, nontender, and nondistended. There is no rebound, voluntary guarding, or rigidity. : Deferred. No Schuler. EXTREMITIES: Legs are swollen with 2+ pitting edema bilaterally SKIN: No skin breakdown. Vital Signs (last 8hr) Date Time Temp Pulse Resp B/P (MAP) Pulse Ox O2 Delivery O2 Flow Rate FiO2 02/06/24 11:22 98.2 71 19 114/60 91 Nasal Cannula 2.0 24 11/13/24 08:16 98.2 73 17 122/80 97 Nasal Cannula 2.0 24 02/06/24 08:00 99 Nasal Cannula* 2 28 LABS: Laboratory: Test 02/06/24 10:54 02/06/24 08:55 02/06/24 05:51 02/06/24 05:03 Range/Units Whole Blood Glucose 101 70-110 MG/DL Urine Color COLORLESS YELLOW Urine Appearance CLEAR CLEAR Urine pH 7.0 5.0-8.0 Urine Specific Uriah 1.008 1.001-1.031 Urine Protein NEGATIVE NEGATIVE mg/dL Urine Glucose (UA) NEGATIVE NEGATIVE mg/dL Urine Ketones NEGATIVE NEGATIVE mg/dL Urine Occult Blood SMALL H NEGATIVE Urine Nitrate NEGATIVE NEGATIVE Urine Bilirubin NEGATIVE NEGATIVE mg/dL Urine Urobilinogen 0.2 0.2-1.0 mg/dL Urine Leukocyte Esterase NEGATIVE NEGATIVE Christina/uL Urine RBC 26-50 H 0-1 /HPF Urine WBC 2-5 H 0-1 /HPF Urine Squamous Epithelial Cells RARE 0-2 /HPF Urine Other Crystals (Auto) 1 None Seen /HPF Urine Bacteria None None Seen /HPF Bedside Glucose Comment Notified Nurse White Blood Count 10.1 4.8-10.8 K/uL Red Blood Count 4.03 4.00-5.50 MIL/uL Hemoglobin 11.3 L 12.0-16.0 g/dL Hematocrit 37.5 36-48 % Mean Corpuscular Volume 93.1 79-99 fL Mean Corpuscular Hemoglobin 28.0 27.0-33.0 pg Mean Corpuscular Hemoglobin Concent 30.1 L 32.0-36.0 g/dL Red Cell Distribution Width 13.7 11.0-15.5 % Platelet Count 223 130-400 K/uL Mean Platelet Volume 9.8 7.5-10.5 fL Immature Granulocyte % (Auto) 0.4 0-1 % Neutrophils (%) (Auto) 55.3 40.0-77.0 % Lymphocytes (%) (Auto) 31.9 21.0-51.0 % Monocytes (%) (Auto) 10.2 3.0-13.0 % Eosinophils (%) (Auto) 1.8 0.0-8.0 % Basophils (%) (Auto) 0.4 0.0-5.0 % Neutrophils # (Auto) 5.6 1.8-7.7 K/uL Lymphocytes # (Auto) 3.2 1.0-4.8 K/uL Monocytes # (Auto) 1.0 0.1-1.0 K/uL Eosinophils # (Auto) 0.18 0.00-0.70 K/uL Basophils # (Auto) 0.04 0.00-0.20 K/uL Absolute Immature Granulocyte (auto 0.04 0-1 K/uL Nucleated Red Blood Cells 0.0 0.0-0.19 % Sodium Level 145 136-145 mmol/L Potassium Level 3.2 L 3.5-5.1 mmol/L Chloride Level 103 101-111 mmol/L Carbon Dioxide Level 36 H 21-32 mmol/L Blood Urea Nitrogen 36 H 7-18 mg/dL Creatinine 2.3 H 0.5-1.0 mg/dL Glomerular Filtration Rate Calc 23 >90 mL/min Random Glucose 117 H 70-105 mg/dL Total Calcium 9.0 8.5-10.1 mg/dL Iron Level 78 50-170 mcg/dL Total Iron Binding Capacity 340 250-450 mcg/dL Percent Iron Saturation 22.9 22-44 % Test 02/05/24 04:54 Range/Units Prothrombin Time 10.5 9.6-11.6 SEC Prothromb Time International Ratio 0.97 0.85-1.15 Activated Partial Thromboplast Time 23.5 L 26.3-35.5 SEC Magnesium Level 1.90 1.80-2.40 mg/dL Total Bilirubin 0.4 0.2-1.0 mg/dL Aspartate Amino Transf (AST/SGOT) 12 10-37 U/L Alanine Aminotransferase (ALT/SGPT) 25 12-78 U/L Alkaline Phosphatase 72 50-136 U/L Total Protein 6.0 6.0-8.3 g/dL Albumin 3.0 L 3.5-5.0 g/dL Current Medications Medications (Trade) Dose Ordered Sig/Ashanti Route PRN Reason Start Time Stop Time Status Last Admin Dose Admin Acetaminophen (TYLenol 325MG TAB) 650 mg Q6H PRN PO MILD PAIN (1-3) 02/04/24 12:30 03/05/24 12:29 Acetazolamide Sodium (DIAmox 500MG INJ) 500 mg DAILY IV 02/04/24 13:30 02/07/24 13:29 02/05/24 09:29 500 MG Albuterol (DUOneb) 1 udvial Q6H PRN IH SHORTNESS OF BREATH 02/04/24 12:30 03/05/24 12:29 Aspirin (Aspirin 81mg Chew Tab) 81 mg Q24H PO 02/04/24 12:30 03/05/24 12:29 02/04/24 12:45 81 MG Atorvastatin Calcium (LIPItor 10MG) 10 mg DAILY PO 02/05/24 09:00 03/06/24 08:59 Bumetanide (Bumex 1mg Vial) 1 mg Q8H IVP 02/04/24 13:30 02/06/24 07:07 DC 02/06/24 05:32 1 MG Bupropion HCl (WellBUTrin SR 150MG) 150 mg DAILY PO 02/05/24 09:00 03/06/24 08:59 Ceftriaxone Sodium (ROCEphine 1G INJ) 1 gm Q12H IVPB 02/04/24 12:00 02/14/24 11:59 02/06/24 12:51 1 GM Cetirizine HCl (ZYRtec 5 MG TABLET) 10 mg Q24H PO 02/04/24 13:00 03/05/24 12:59 02/04/24 12:52 10 MG Clonazepam (clonazePAM 0.5 mg) 0.5 mg HSPRN PRN PO ANXIETY/AGITATION 02/04/24 15:30 03/05/24 15:29 02/05/24 10:57 0.5 MG Diltiazem HCl (CARDIzem 120MG CD) 120 mg Q24H PO 02/04/24 12:30 02/06/24 07:23 DC 02/05/24 13:11 120 MG Hydromorphone HCl (DiLAUDid 1MG INJ) 1 mg Q4H PRN IVP SEVERE PAIN (7-10) 02/06/24 12:30 02/11/24 12:29 02/06/24 12:50 1 MG Insulin Human Regular (humuLIN R 100 UNIT/ML 3ML) INSULIN SLIDING SCAL... ACHS SQ 02/04/24 16:30 03/05/24 16:29 Isosorbide Mononitrate (Imdur 30mg Sr) 30 mg DAILY PO 02/04/24 15:00 02/06/24 07:07 DC 02/05/24 09:29 30 MG Metoprolol Succinate (TopROL XL) 25 mg DAILY PO 02/04/24 15:00 02/06/24 07:23 DC 02/05/24 09:29 25 MG Miscellaneous Medication (Isosorbide Dinitrate ) 1 tab DAILY PO 02/05/24 09:00 02/04/24 17:04 DC Morphine Sulfate (morPHINE 2MG SYG) 2 mg Q6H PRN IVP SEVERE PAIN (7-10) 02/04/24 12:30 02/04/24 12:27 DC Morphine Sulfate (morPHINE 2MG SYG) 2 mg Q6H PRN IVP SEVERE PAIN (7-10) 02/04/24 12:30 02/06/24 12:11 DC 02/06/24 08:38 2 MG Ondansetron HCl (zoFRAN 4MG INJ) 4 mg Q6H PRN IVP NAUSEA/VOMITING 02/04/24 12:30 03/05/24 12:29 02/06/24 02:41 4 MG Pantoprazole Sodium (PROTonix 40MG TAB) 40 mg DAILY PO 02/05/24 09:00 03/06/24 08:59 Potassium Chloride 100 ml @ 100 mls/hr AD PRN IV POTASSIUM PROTOCOL 02/04/24 12:30 03/05/24 12:29 Potassium Chloride (K-Dur 10meq Sr Tab) 10 meq AD PRN PO POTASSIUM PROTOCOL 02/04/24 12:30 03/05/24 12:29 02/04/24 17:16 10 MEQ Potassium Chloride (KCl 10% Elixir 20meq/15ml) 10 meq AD PRN PO POTASSIUM PROTOCOL 02/04/24 12:30 03/05/24 12:29 Prednisone (deltaSONE/ ORASONE 10MG) 30 mg Q24H PO 02/04/24 12:30 03/05/24 12:29 02/04/24 12:45 30 MG Pregabalin (LYRica 100MG) 100 mg DAILY PO 02/05/24 09:00 03/06/24 08:59 Sodium Chloride 1,000 ml @ 50 mls/hr Q20H IV 02/05/24 10:00 03/06/24 09:59 02/06/24 00:43 100 MLS/HR DIAGNOSTICS / RADIOLOGY: [facility] [address] [place] [id number] IMAGING REPORT Signed PATIENT: STEW LAKE MR#: [id number] : 1960 SEX: F AGE: 63 LOCATION: 4DH ORDER [id number] STATUS: ADM IN REPORT#: [id number] SERVICE 0904 REASON: r/o right renal hydronephrosis ORDERING PHYSICIAN: HARSHA MEDEROS MD PROCEDURE: RENAL - US RENAL SONOGRAM US RENAL SONOGRAM REASON: r/o right renal hydronephrosis COMPARISON: None TECHNIQUE: Renal and bladder sonogram performed. FINDINGS: Right kidney is 10 x 5.6 x 6.4 cm, left 10.6 x 4.7 x 5.1 cm. There is a 2.6 cm cyst lower pole right kidney and a 3.1 cm cyst upper pole left kidney. There are no focal masses. There is mild hydronephrosis on the right. This is better seen on previous day's CT scan. There is no hydronephrosis on the left. IMPRESSION: 1. Mild right-sided hydronephrosis. 2. Small bilateral cysts. 3. Urinary bladder only partially distended and not well visualized. DICTATED BY: DIANN RUBY MD DATE: 02/06/24 125 ELECTRONICALLY SIGNED BY: DIANN RUBY MD DATE: 02/06/24 [address] [place] [id number] [address] IMAGING REPORT Signed PATIENT: STEW LAKE MR#: [id number] : 1960 SEX: F AGE: 63 LOCATION: 4DH ORDER 1205 STATUS: ADM IN [facility] REPORT#: [id number] SERVICE 1200 REASON: hx of pulm htn, assess for heart failure, SHC to read ORDERING PHYSICIAN: LOR PATRICIA MD PROCEDURE: ECHO CMP - ECHO 2-D COMPLETE APPROVED REPORT EXAM: Two-dimensional and M-mode echocardiogram with Doppler and color Doppler. INDICATION ICD: pulmonary hypertension Heart Failure 2D Dimensions RVDd 3.7 cm LVEF(%) 63.7 (>50%) LVED Vol(simp.) 80.4 mL IVSd 1.2 (0.7-1.1cm) FS(%) 35 % LVES Vol(simp.) 30.3 mL LVDd 4.9 (3.8-5.6cm) LA (2D) 4.0 (1.6-4.0cm) LVEF(%, simp.) 62 % PWd 1.0 (0.7-1.1cm) Ao Root(2D) 3.1 (2.0-3.7cm) LA ESV INDEX (4CH) 21.70 mL/m2 IVSs 1.6 cm LVOT diam 2.4 (1.8-2.4cm) LA ESV INDEX (2CH) 21.30 mL/m2 LVDs 3.2 (2.5-4.0cm) LA ESV INDEX (BP) 23.70 mL/m2 PWs 1.6 cm Deformation Strain Apical 4 22.0 % Apical 2 24.0 % Apical 3 24.0 % Global Strain 23.0 % M-Mode Dimensions EPSS 0.6 cm LA (MM) 3.6 (1.6-4.0cm) Ao Root(MM) 3.6 (2.0-3.7cm) Aortic Valve AoV VTI 0.3 m Ao Mean GR 5.0 mmHg LVOT VTI 0.25 m CHRISTOPHER (VMAX) 3.5 cm2 CHRISTOPHER (VTI) 3.5 cm2 Mitral Valve MV E Vmax 94.6 cm/s DECEL Time 229 ms MV A Vmax 59.7 cm/s P 1/2 T 87 ms E/A ratio 1.6 MVA (PHT) 2.5 cm2 MR Max PG 51 mmHg TDI E/E' Medial 12.0 E/E' Lateral 9.8 Medial E' Peak V 7.90 cm/s Lateral E' Peak V 9.70 cm/s Pulmonary Valve PV Vmax 1.0 m/s PV Peak GR 4.1 mmHg Left Ventricle The left ventricle is normal size. GLS -23%. There is normal left ventricular wall thickness. Septal bounce is present. LVEF is55-60%. The left ventricular diastolic function is normal. Right Ventricle The right ventricle is normal size. The right ventricular systolic function is normal. Atria The left atrium size is normal. The right atrium size is normal. Aortic Valve The aortic valve is normal in structure. No aortic regurgitation is present. There is no aortic valvular stenosis. Mitral Valve The mitral valve is normal in structure. Trace mitral regurgitation. There is no mitral valve stenosis. Tricuspid Valve The tricuspid valve is normal in structure. There is no tricuspid valve regurgitation noted. Pulmonic Valve The pulmonary valve is normal in structure. There is no pulmonic valvular regurgitation. Great Vessels The aortic root is normal in size. The IVC is dilated and collapses >50% with inspiration. Pericardium There is no pericardial effusion. Other Information Quality : Good Rhythm : NSR Conclusion LVEF is55-60%. Septal bounce is present. The left ventricular diastolic function is normal. Trace mitral regurgitation. Estiamted pulmonary pressure is within normal range DICTATED BY: ANA WALKER DO DATE: 02/05/24 0742 ELECTRONICALLY SIGNED BY: ANA WALKER DO DATE: 02/05/24 [address] [place] [address] [place] [id number] IMAGING REPORT Signed PATIENT: STEW LAKE MR#: [id number] : 1960 SEX: F AGE: 63 LOCATION: 4DH ORDER 1040 STATUS: ADM IN REPORT#: [id number] SERVICE 1130 REASON: Bilateral flank pain, Nephrolithiasis ORDERING PHYSICIAN: MINERVA TELLEZ MD PROCEDURE: ABD PEL WO - CT ABDOMEN/PELVIS W/O CONTRAST CT ABDOMEN/PELVIS W/O CONTRAST REASON: Bilateral flank pain, Nephrolithiasis COMPARISON: 02/21/2024 FINDINGS: Lung bases are clear. There are no focal liver lesions. The liver is not enlarged.. Spleen and pancreas appear unremarkable. There has been a previous cholecystectomy. There is mild to moderate right hydronephrosis. There is a 6 mm stone in the proximal right ureter at the level of the lower pole of the right kidney. There is an additional 2 mm nonobstructing stone in an upper pole calyx on the right and there are several very small stones lower pole calyx on the right as well. Left kidney appears unremarkable with the exception of a small cyst upper pole. Bowel loops appear unremarkable. This includes normal appearance of the appendix There is no evidence of free fluid or intraperitoneal air. There are no focal fluid collections. Aorta and retroperitoneum appear normal as do pelvic soft tissue structures. The anterior abdominal wall is intact. Osseous structures appear unremarkable. IMPRESSION: 1. 6 mm right ureteral stone at the level of the lower pole right kidney, there is mild to moderate right hydronephrosis. 2. There are several additional very small nonobstructing stones in the right kidney, there are small bilateral cysts as well. 3. Absent gallbladder. CT was performed with one or more following dose reduction techniques: automated exposure control, adjustment of the mA and kv according to patient's size, or use of a iterative reconstruction technique. DICTATED BY: DIANN RUBY MD DATE: 02/05/24 1239 ELECTRONICALLY SIGNED BY: DIANN RUBY MD DATE: 02/05/24 1245 [place] [address] IMAGING REPORT Signed PATIENT: STEW LAKE MR#: [id number] : 1960 SEX: F AGE: 63 LOCATION: [facility] ORDER 1007 STATUS: [facility] REPORT#: [id number] SERVICE 1007 REASON: bilateral flank pain ORDERING PHYSICIAN: RENATA DE ANDA MD PROCEDURE: RENAL - US RENAL SONOGRAM US RENAL SONOGRAM REASON: bilateral flank pain COMPARISON: None TECHNIQUE: Renal and bladder sonogram was performed. FINDINGS: Right kidney is 10.8 x 6.3 x 6.6 cm, left 11.9 x 5.6 x 6.3 cm. There is moderate bilateral renal cortical thinning. There is a 1 cm stone in the right kidney, nonobstructing. There is a 2.6 cm cyst right kidney and a 3.6 cm cyst left kidney. Urinary bladder is only partially distended. Urinary bladder wall appears mildly thickened but this is inconclusive in the a urinary bladder which is not completely distended. IMPRESSION: 1. Mild bilateral renal cortical thinning. It 2. Small cysts, one on each kidney, there is also a nonobstructing 1 cm stone right kidney. 3. No evidence of mass or hydronephrosis. 4. Urinary bladder only partially distended and not well visualized. DICTATED BY: DIANN RUBY MD DATE: 02/04/24 1102 ELECTRONICALLY SIGNED BY: DIANN RUBY MD DATE: 02/04/24 1118 ASSESSMENT: ANDREA on CKD, POA Developing urinary tract infection, POA Persistent right renal nephrolithiasis, POA Nonresolving bilateral flank pain, POA Hypernatremia, POA Mild hypokalemia, POA Ruled out acute heart failure exacerbation, POA Underlying history of pulmonary hypertension on continuous O2 therapy as outp atient, POA MARIA TERESA, POA Morbid obesity with BMI 48.4 kg/m2, POA Hypertension, POA Hyperlipidemia, POA Chronic use of outpatient corticosteroids, POA History of chronic back pain, POA Rheumatoid arthritis, POA Possible May-Thurner Syndrome History of chronic outpatient use of benzodiazepines, POA PLAN:- The Patient remains admitted on the medical surgical floor. ANDREA on CKD, POA Developing urinary tract infection, POA Persistent right renal nephrolithiasis, POA Nonresolving bilateral flank pain, POA * Continue with 0.45% Na Cl 50 cc/hour and re-evaluate tomorrow * Urinalysis was ordered yesterday however was not performed according to labs. Urinalysis was ordered today, follow up when the results are available. * Restrict oral fluid intake to 1.5 L a day. * Discontinue with p.r.n. morphine, start with Dilaudid1 mg q.4 for severe pain. Re-evaluate the pain severity tomorrow. * IVP with diuresis was ordered to decide to further proceed with the nephrostomy tube placement or not. Follow up when the results are available. Ruled out acute heart failure exacerbation, POA Peripheral edema, POA * Continue with acetazolamide 500 mg IV daily for 3 days * Discontinue with Bumex 1 mg IV every 8 hours given worsening of renal functions. * Discontinue home medications of metoprolol succinate 25 mg daily * Hold home medication losartan due to ANDREA Pulmonary hypertension * Continue with supplemental O2 therapy to maintain oxygen saturation greater than 92% Obstructive sleep apnea Morbid obesity, BMI 48.4 kg per m2 * Continue with CPAP at night for breathing support Rheumatoid arthritis * Continue with prednisone 30 mg daily Possible May-Thurner Syndrome * Further investigations to rule out May-Thurner syndrome will be ordered after patient's renal function improves, and flank pain resolves, either inpatient or outpatient. * Home medications were reconciled and resumed * P.r.n. medications for nausea, pain * Continue with insulin sliding scale for hyperglycemia * Continue with the atorvastatin 10 mg, aspirin 81 mg * Replace electrolytes per protocol * AM labs: CBC, BMP, Urinalysis We will follow up with IVP results and follow the recommendations from the urologist to proceed further with nephrostomy tube or medical management tomorrow. We will decide disposition in 24-48 hours. ATTESTATION BY PHYSICIAN I have seen and examined the patient. I reviewed the documentation, medical decision making, and treatment plan as noted by the resident provider above. I agree with the findings and plan of care. Yoshi Barcenas MD, MANALI MD Feb 06, 2024 15:48
--- NOTE | 2024-02-06 16:42 | HMCIMG ---
NM RENOGRAM W/ LASIX REASON: R/O hydronephrosis COMPARISON: None TECHNIQUE: Routine imaging protocol was performed following injection of 7.3 mCi technetium 99 M MAG3. 40 mg of Lasix was administered IV push 15 minutes into the exam. FINDINGS: Images show prompt the isotope uptake and excretion on the left. Left has a normal-appearing excretion curve is accentuated by Lasix. There is delayed isotope uptake on the right. There is gradually increasing activity curve on the right consistent with a high degree of obstruction, this is not significantly affected by Lasix. The T1 half following Lasix on the left is 12.6 minutes, within normal limits. The T1 half on the right cannot be calculated as the activity curve continues to rise rather than fall. Split function is 74.1% left and 25.9% right IMPRESSION: 1. Delayed nephrogram and absence of excretion on the right consistent with a high-grade obstruction in the right proximal kidney 2. Normal uptake and excretion on the left.
--- NOTE | 2024-02-06 17:46 | NUR ---
[facility] CM MET WITH PT THIS AFTERNOON, INITIAL ASSESSMENT DONE. PATIENT IS INDEPENDENT PRIOR TO ADMISSION, LIVES AT HOME W/SPOUSE. DENIES ANY EQUIPMENT/SERVICES. FEELS SAFE TO GO BACK HOME, STILL DRIVE, SPOUSE AND SISTER ABLE TO ASSIST WITH TRANSPORTATION AND NEEDS NECESSARY. USES [facility] FOR MEDS. DCP HOME ONCE STABLE. CM TO CONTINUE TO FOLLOW UP. Addendum: 02/06/24 at 1747 by SHELDON VILA LVN CM Amended: Links added.
--- NOTE | 2024-02-06 17:55 | NUR ---
DIET/NPO PATIENT OK TO EAT NOW, NPO AT MIDNIGHT PER RESIDENT DR. TELLEZ. FOLLOW UP WITH IR IN AM FOR POSSIBLE NEPHRO TUBE.
[2024-02-07] VITALS (11 sets, daily range): BP systolic 100–134; BP diastolic 46–72; PULSE 76–110; RESP 17–20; TEMP 97.9–98.6; O2SAT 92–96
[2024-02-07 04:42] LABS: MEAN CORPUSCULAR HEMOGLOBIN 27.2 pg (27.0-33.0); MEAN CORPUSCULAR VOLUME 90.7 fL (79-99); RED BLOOD CELL COUNT(AUTO) 4.63 MIL/uL (4.00-5.50); RED CELL DISTRIBUTION WIDTH 13.8 % (11.0-15.5); WHITE BLOOD COUNT (AUTO) 13.2 K/uL (4.8-10.8)
[2024-02-07 04:48] LABS: CREATININE 2.4 mg/dL (0.5-1.0)
[2024-02-07] MEDS: PoTASSium chloRIDE 10MEQ/100ML 100 ML IV PRN (04:55)
--- NOTE | 2024-02-07 11:00 | HMCIMG ---
CHEST 1VW REASON: Leucocytosis, Tachycardia, rule out pneumonia COMPARISON: 02/04/2024 FINDINGS: Single view of the chest was obtained. Lungs are clear. Heart size is normal. There is no pulmonary vascular congestion. Mediastinum and bony thorax appear unremarkable. IMPRESSION: 1. Normal single view chest x-ray.
--- NOTE | 2024-02-07 12:45 | PN ---
[facility] PROGRESS NOTE Date of Service: Feb 07, 2024 Time of Service: 11:00 SUBJECTIVE:- The patient is a 63-year-old female with a past medical history of hypertension, type 2 diabetes mellitus, pulmonary hypertension on continuous O2 at home, congestive heart failure, morbid obesity with BMI 48.4 kg/m2, obstructive sleep apnea uses CPAP at home, rheumatoid arthritis on chronic steroids and Humira injections, chronic back pain presented to emergency department at [facility] [place] yesterday for the evaluation of the bilateral flank pain of the past 2 weeks. She had an ER visit on 01/20 with the similar complaints were CT abdomen and pelvis without contrast was done which showed 6 mm stone in the proximal right ureter with no hydronephrosis. She was treated with hydrocodone and Flomax and was told to follow urologist outpatient. She did not follow the urologist and continues to have a persistent pain along with a cloudy appearance of urine. * She follows Dr. Ribera cardiology as outpatient for CHF, and due to bilateral lower extremity edema, he increase the dose of Lasix to 40 mg b.i.d. * She was recently diagnosed with pulmonary hypertension and following Dr. Carrillo and has been on oxygen therapy at home. She reported 40 lb weight gain over last several months and reports having significant bilateral lower extremity edema. * She also sees a guest service representative for rheumatoid arthritis and has been on chron ic steroids with prednisone 30 mg daily and Humira injections. On presentation, significant labs for sodium of 147, potassium 3.2, creatinine 1.6, BNP normal of 16. Creatinine on 01/20 was 1.1. Renal ultrasound showed small cyst, once on each kidney and nonobstructive 1 cm stone in the right kidney, no evidence of mass or hydronephrosis. Urinalysis showed cloudy appearance, trace occult blood, small leukocyte esterase, RBCs 6-10, WBC 2-5, urine squamous epithelial cells moderate and few uric acid crystals. Venous Doppler for negative for any evidences of thrombosis. Cardiology consult was made due to underlying heart failure and pulmonary hypertension, urology and nephrology consult was made due to persistent nephrolithiasis. She was admitted for the management of ANDREA on CKD, concern for volume overload, persistent right nephrolithiasis developing UTI. 02/05/24- The patient was examined today, with family at bedside. She is lying on the bed, does not seem to be in distress, however is complaining about the pelvic pain. Her vitals have been nonsignificant except slightly tachypneic respiratory rate from 22-24. She has been on 2 L of nasal cannula * Per Cardiology note, the patient has a mild hypertension and the recommendations were made to continue diltiazem. For chronic diastolic heart failure continue IV diuretics. She also has a bilateral lower extremity edema suspected to be May-Thurner syndrome. * Per Urology note, the patient needs a right nephrostomy tube replacement. The procedure was supposed to happened last night after CT scan however the patient did not go for CT scan yesterday because she feels claustrophobic and needs anxiolytics before the procedure which she did not receive yesterday. No follow up was done, CT scan was canceled however and was done today * Per nephrology, she was started with 100 cc/hour IV fluids, and need further workup for possible iron-deficiency anemia. Labs: Sodium 146, potassium 3.4, carbon dioxide 38, BUN 26, creatinine went up to 1.7 from 1.6, GFR 34, normal liver enzymes, albumin 3.0. Assessment and plan discussed below. 02/06/24- The patient was examined today, with family on the bedside. She has been on morphine, however complaining of still excruciating pain, 11/02 at present. The patient was supposed to go for right nephrostomy tube placement however per Dr. Arevalo and the radiologist conversations, she will be first going for IVP with diuresis to evaluate the intensity or severity of hydronephrosis. Based on that, nephrostomy tube placement decision will be made. Labs: Sodium 145, potassium 3.2, BUN went up to 36 from 6, creatinine went up to 2.3 From 1.7, GFR went down to 23 from 34. Due to worsening of renal functions, the configuration management advisor discontinued Bumex. Also Dr. Ribera does not think the patient should be on isosorbide dinitrate, metoprolol. She has mild pulmonary hypertension and he also does not think diltiazem is the first-line medication without underlying AFib. He thinks causes of bilateral edema is due to May-Thurner syndrome which can be managed inpatient or outpatient after improvement in renal functions. Recommendations will be followed. Further assessment and plan discussed below. 02/07/24- The patient was examined today, with the family on the bedside. She has been on Dilaudid 1 mg Q4 since yesterday. Pain is somewhat manageable with the Dilaudid. IVP with Lasix study yesterday showed absence of excretion on the right consistent with a high-grade obstruction in the right proximal kidney with normal uptake and excretion on the left. She denies any shortness of breath, chest pain, difficulty in urination or any other symptoms. She remains afebrile, however had few episodes of tachycardia in the blood pressure is running on the softer side with SBP is in 100 and diastolic in 70s she has been on and off to the nasal cannula. She has 3+ bilateral pitting edema. Labs: WBCs went up to 13.2 From 10.1, sodium 141, potassium went down to 3.0 from 3.2, chloride 98, BUN went down to 34 from 36, went up to 2.4 From 2.3. We will give 40 mg IV Lasix today. She is going for the nephrostomy tube placement around 3:00 p.m. today. Further assessment and plan discussed below. REVIEW OF SYSTEMS CONSTITUTIONAL: Denies fevers, chills, or night sweats. No unintentional weight loss reported. NEUROLOGICAL: Denies headache, amaurosis fugax, motor weakness, sensory deficit, vertigo/spinning sensation, gait abnormalities, or tremors. ENT: No hearing loss, otalgia, otorrhea, rhinitis, rhinorrhea, hoarseness, or sore throat. CARDIOVASCULAR: Lower extremity edema, PULMONARY: Denies any shortness of breath, cough, phlegm/sputum, hemoptysis, pleuritic chest pain. SLEEP: Denies morning headaches, daytime somnolence or napping. Denies difficulty falling asleep, staying asleep, waking from sleep. Denies knowledge of snoring. GASTROINTESTINAL: Nausea GENITOURINARY: Persistent Flank pain with dysuria ENDOCRINOLOGIC: Denies polyuria, polydipsia, polyphagia or heat/cold intolerances. HEMATOLOGIC: Denies thrombophilia/previous clots, or coagulopathy/bleeding disorders. ONCOLOGIC: Denies personal history of malignancy. DERMATOLOGIC: Denies rashes or pruritus. PSYCHIATRIC: Denies any suicidal or homicidal ideation. Denies hallucinations. PHYSICAL EXAM GENERAL APPEARANCE: The patient is awake, but appears sleepy, patient recently received IM dose of Benadryl, patient is obese NEUROLOGICAL: Cranial nerves II-XII grossly intact. Motor is 5/5 in bilateral upper and lower extremities proximal to distal. No sensory deficits. HEENT: Face is symmetric. Pupils are equal and reactive. Extraocular movements are intact. NECK: Supple. No JVD. No thyromegaly. No submental, submandibular, pre- /postauricular, occipital or supraclavicular lymphadenopathy. CHEST: Normal chest expansion. No Telemetry. LUNGS: minimal crackles noted at bilateral lung bases CARDIOVASCULAR: Regular. S1 and S2 normal. No appreciable rubs, murmurs or gallops. ABDOMEN: Soft, nontender, and nondistended. There is no rebound, voluntary guarding, or rigidity. : Deferred. No Schuler. EXTREMITIES: Legs are swollen with 3+ pitting edema bilaterally SKIN: No skin breakdown. Vital Signs (last 8hr) Date Time Temp Pulse Resp B/P (MAP) Pulse Ox O2 Delivery O2 Flow Rate FiO2 02/07/24 08:02 98.2 110 17 100/71 92 Room Air 21 02/07/24 07:59 102 20 N/Cannula Low lpm 2.0 28 LABS: Laboratory: Test 02/07/24 11:13 02/07/24 04:05 02/06/24 08:55 02/06/24 05:51 Range/Units Whole Blood Glucose 123 H 70-110 MG/DL White Blood Count 13.2 #H 4.8-10.8 K/uL Red Blood Count 4.63 4.00-5.50 MIL/uL Hemoglobin 12.6 12.0-16.0 g/dL Hematocrit 42.0 36-48 % Mean Corpuscular Volume 90.7 79-99 fL Mean Corpuscular Hemoglobin 27.2 27.0-33.0 pg Mean Corpuscular Hemoglobin Concent 30.0 L 32.0-36.0 g/dL Red Cell Distribution Width 13.8 11.0-15.5 % Platelet Count 242 130-400 K/uL Mean Platelet Volume 10.2 7.5-10.5 fL Nucleated Red Blood Cells 0.0 0.0-0.19 % Sodium Level 141 136-145 mmol/L Potassium Level 3.0 *L 3.5-5.1 mmol/L Chloride Level 98 L 101-111 mmol/L Carbon Dioxide Level 33 H 21-32 mmol/L Blood Urea Nitrogen 34 H 7-18 mg/dL Creatinine 2.4 H 0.5-1.0 mg/dL Glomerular Filtration Rate Calc 22 >90 mL/min Random Glucose 109 H 70-105 mg/dL Total Calcium 9.4 8.5-10.1 mg/dL Magnesium Level 2.00 1.80-2.40 mg/dL Urine Color COLORLESS YELLOW Urine Appearance CLEAR CLEAR Urine pH 7.0 5.0-8.0 Urine Specific Drury 1.008 1.001-1.031 Urine Protein NEGATIVE NEGATIVE mg/dL Urine Glucose (UA) NEGATIVE NEGATIVE mg/dL Urine Ketones NEGATIVE NEGATIVE mg/dL Urine Occult Blood SMALL H NEGATIVE Urine Nitrate NEGATIVE NEGATIVE Urine Bilirubin NEGATIVE NEGATIVE mg/dL Urine Urobilinogen 0.2 0.2-1.0 mg/dL Urine Leukocyte Esterase NEGATIVE NEGATIVE Christina/uL Urine RBC 26-50 H 0-1 /HPF Urine WBC 2-5 H 0-1 /HPF Urine Squamous Epithelial Cells RARE 0-2 /HPF Urine Other Crystals (Auto) 1 None Seen /HPF Urine Bacteria None None Seen /HPF Bedside Glucose Comment Notified Nurse Test 02/06/24 05:03 Range/Units Immature Granulocyte % (Auto) 0.4 0-1 % Neutrophils (%) (Auto) 55.3 40.0-77.0 % Lymphocytes (%) (Auto) 31.9 21.0-51.0 % Monocytes (%) (Auto) 10.2 3.0-13.0 % Eosinophils (%) (Auto) 1.8 0.0-8.0 % Basophils (%) (Auto) 0.4 0.0-5.0 % Neutrophils # (Auto) 5.6 1.8-7.7 K/uL Lymphocytes # (Auto) 3.2 1.0-4.8 K/uL Monocytes # (Auto) 1.0 0.1-1.0 K/uL Eosinophils # (Auto) 0.18 0.00-0.70 K/uL Basophils # (Auto) 0.04 0.00-0.20 K/uL Absolute Immature Granulocyte (auto 0.04 0-1 K/uL Iron Level 78 50-170 mcg/dL Total Iron Binding Capacity 340 250-450 mcg/dL Percent Iron Saturation 22.9 22-44 % Current Medications Medications (Trade) Dose Ordered Sig/Ashanti Route PRN Reason Start Time Stop Time Status Last Admin Dose Admin Acetaminophen (TYLenol 325MG TAB) 650 mg Q6H PRN PO MILD PAIN (1-3) 02/04/24 12:30 03/05/24 12:29 Acetazolamide Sodium (DIAmox 500MG INJ) 500 mg DAILY IV 02/04/24 13:30 02/07/24 13:29 02/05/24 09:29 500 MG Albuterol (DUOneb) 1 udvial Q6H PRN IH SHORTNESS OF BREATH 02/04/24 12:30 03/05/24 12:29 Aspirin (Aspirin 81mg Chew Tab) 81 mg Q24H PO 02/04/24 12:30 03/05/24 12:29 02/04/24 12:45 81 MG Atorvastatin Calcium (LIPItor 10MG) 10 mg DAILY PO 02/05/24 09:00 03/06/24 08:59 Bumetanide (Bumex 1mg Vial) 1 mg Q8H IVP 02/04/24 13:30 02/06/24 07:07 DC 02/06/24 05:32 1 MG Bupropion HCl (WellBUTrin SR 150MG) 150 mg DAILY PO 02/05/24 09:00 03/06/24 08:59 Ceftriaxone Sodium (ROCEphine 1G INJ) 1 gm Q12H IVPB 02/04/24 12:00 02/14/24 11:59 02/06/24 23:39 1 GM Cetirizine HCl (ZYRtec 5 MG TABLET) 10 mg Q24H PO 02/04/24 13:00 03/05/24 12:59 02/04/24 12:52 10 MG Clonazepam (clonazePAM 0.5 mg) 0.5 mg HSPRN PRN PO ANXIETY/AGITATION 02/04/24 15:30 03/05/24 15:29 02/06/24 20:29 0.5 MG Diltiazem HCl (CARDIzem 120MG CD) 120 mg Q24H PO 02/04/24 12:30 02/06/24 07:23 DC 02/05/24 13:11 120 MG Hydromorphone HCl (DiLAUDid 1MG INJ) 1 mg Q4H PRN IVP SEVERE PAIN (7-10) 02/06/24 12:30 02/11/24 12:29 02/07/24 11:13 1 MG Insulin Human Regular (humuLIN R 100 UNIT/ML 3ML) INSULIN SLIDING SCAL... ACHS SQ 02/04/24 16:30 03/05/24 16:29 Isosorbide Mononitrate (Imdur 30mg Sr) 30 mg DAILY PO 02/04/24 15:00 02/06/24 07:07 DC 02/05/24 09:29 30 MG Metoprolol Succinate (TopROL XL) 25 mg DAILY PO 02/04/24 15:00 02/06/24 07:23 DC 02/05/24 09:29 25 MG Miscellaneous Medication (Isosorbide Dinitrate ) 1 tab DAILY PO 02/05/24 09:00 02/04/24 17:04 DC Morphine Sulfate (morPHINE 2MG SYG) 2 mg Q6H PRN IVP SEVERE PAIN (7-10) 02/04/24 12:30 02/04/24 12:27 DC Morphine Sulfate (morPHINE 2MG SYG) 2 mg Q6H PRN IVP SEVERE PAIN (7-10) 02/04/24 12:30 02/06/24 12:11 DC 02/06/24 08:38 2 MG Ondansetron HCl (zoFRAN 4MG INJ) 4 mg Q6H PRN IVP NAUSEA/VOMITING 02/04/24 12:30 03/05/24 12:29 02/07/24 11:19 4 MG Pantoprazole Sodium (PROTonix 40MG TAB) 40 mg DAILY PO 02/05/24 09:00 03/06/24 08:59 Potassium Chloride 100 ml @ 100 mls/hr AD PRN IV POTASSIUM PROTOCOL 02/04/24 12:30 03/05/24 12:29 02/07/24 04:55 100 MLS/HR Potassium Chloride (K-Dur 10meq Sr Tab) 10 meq AD PRN PO POTASSIUM PROTOCOL 02/04/24 12:30 03/05/24 12:29 02/04/24 17:16 10 MEQ Potassium Chloride (KCl 10% Elixir 20meq/15ml) 10 meq AD PRN PO POTASSIUM PROTOCOL 02/04/24 12:30 03/05/24 12:29 Prednisone (deltaSONE/ ORASONE 10MG) 30 mg Q24H PO 02/04/24 12:30 03/05/24 12:29 02/04/24 12:45 30 MG Pregabalin (LYRica 100MG) 100 mg DAILY PO 02/05/24 09:00 03/06/24 08:59 Sodium Chloride 1,000 ml @ 50 mls/hr Q20H IV 02/05/24 10:00 02/07/24 09:20 DC 02/06/24 16:07 50 MLS/HR DIAGNOSTICS / RADIOLOGY: [facility] [address] [place] [address] [id number] IMAGING REPORT Signed PATIENT: STEW LAKE MR#: [id number] : 1960 SEX: F AGE: 63 LOCATION: 4DH ORDER 5 STATUS: ADM IN REPORT#: [id number] SERVICE 3 REASON: r/o right renal hydronephrosis ORDERING PHYSICIAN: HARSHA MEDEROS MD PROCEDURE: RENAL - US RENAL SONOGRAM US RENAL SONOGRAM REASON: r/o right renal hydronephrosis COMPARISON: None TECHNIQUE: Renal and bladder sonogram performed. FINDINGS: Right kidney is 10 x 5.6 x 6.4 cm, left 10.6 x 4.7 x 5.1 cm. There is a 2.6 cm cyst lower pole right kidney and a 3.1 cm cyst upper pole left kidney. There are no focal masses. There is mild hydronephrosis on the right. This is better seen on previous day's CT scan. There is no hydronephrosis on the left. IMPRESSION: 1. Mild right-sided hydronephrosis. 2. Small bilateral cysts. 3. Urinary bladder only partially distended and not well visualized. DICTATED BY: DIANN RUBY MD DATE: 02/06/241249 ELECTRONICALLY SIGNED BY: DIANN RUBY MD DATE: 02/06/24 125 [facility] [address] [place] [address] [id number] IMAGING REPORT Signed PATIENT: STEW LAKE MR#: [id number] : 1960 SEX: F AGE: 63 LOCATION: 4DH ORDER 1013 STATUS: ADM IN REPORT#: [id number] SERVICE 1010 REASON: R/O hydronephrosis ORDERING PHYSICIAN: HARSHA MEDEROS MD PROCEDURE: RENAL LASX - NM RENOGRAM W/ LASIX NM RENOGRAM W/ LASIX REASON: R/O hydronephrosis COMPARISON: None TECHNIQUE: Routine imaging protocol was performed following injection of 7.3 mCi technetium 99 M MAG3. 40 mg of Lasix was administered IV push 15 minutes into the exam. FINDINGS: Images show prompt the isotope uptake and excretion on the left. Left has a normal-appearing excretion curve is accentuated by Lasix. There is delayed isotope uptake on the right. There is gradually increasing activity curve on the right consistent with a high degree of obstruction, this is not significantly affected by Lasix. The T1 half following Lasix on the left is 12.6 minutes, within normal limits. The T1 half on the right cannot be calculated as the activity curve continues to rise rather than fall. Split function is 74.1% left and 25.9% right IMPRESSION: 1. Delayed nephrogram and absence of excretion on the right consistent with a high-grade obstruction in the right proximal kidney 2. Normal uptake and excretion on the left. DICTATED BY: DIANN RUBY MD DATE: 02/06/24 1636 ELECTRONICALLY SIGNED BY: DIANN RUBY MD DATE: 02/06/24 [address] [place] [address] IMAGING REPORT Signed PATIENT: STEW LAKE MR#: [id number] : 1960 SEX: F AGE: 63 LOCATION: 4DH ORDER 0830 STATUS: ADM IN REPORT#: [id number] SERVICE 7 REASON: Leucocytosis, Tachycardia, rule out pneumonia ORDERING PHYSICIAN: MINERVA TELLEZ MD PROCEDURE: CXR1VW - CHEST 1VW CHEST 1VW REASON: Leucocytosis, Tachycardia, rule out pneumonia COMPARISON: 02/04/2024 FINDINGS: Single view of the chest was obtained. Lungs are clear. Heart size is normal. There is no pulmonary vascular congestion. Mediastinum and bony thorax appear unremarkable. IMPRESSION: 1. Normal single view chest x-ray. DICTATED BY: DIANN RUBY MD DATE: 02/07/24 1057 ELECTRONICALLY SIGNED BY: DIANN RUBY MD DATE: 02/07/24 1100 ASSESSMENT: ANDREA on CKD, POA Developing urinary tract infection, POA Persistent right renal nephrolithiasis, POA Nonresolving bilateral flank pain, POA Hypernatremia, POA Hypokalemia, POA Ruled out acute heart failure exacerbation, POA Underlying history of pulmonary hypertension on continuous O2 therapy as outpatient, POA MARIA TERESA, POA Morbid obesity with BMI 48.4 kg/m2, POA Hypertension, POA Hyperlipidemia, POA Chronic use of outpatient corticosteroids, POA History of chronic back pain, POA Rheumatoid arthritis, POA Possible May-Thurner Syndrome History of chronic outpatient use of benzodiazepines, POA PLAN:- The Patient remains admitted on the medical surgical floor. ANDREA on CKD, POA Developing urinary tract infection, POA Persistent right renal nephrolithiasis, POA Nonresolving bilateral flank pain, POA * Hold IV fluids due to worsening of the kidney functions and bilateral 3+ pitting edema. * Urinalysis clear appearance, small occult blood, RBC 26-50. Cultures says mixed estrellita and contaminated sample. However due to leukocytosis 13.2, we will continue with Rocephin today and reevaluate tomorrow. * Restrict oral fluid intake to 1.5 L a day. * Continue with Dilaudid1 mg q.4 for severe pain. Re-evaluate the pain severity tomorrow. * Patient is going for the nephrostomy tube placement at 3:00 p.m. today. Follow up postprocedure. Ruled out acute heart failure exacerbation, POA Peripheral edema, POA * Continue with acetazolamide 500 mg IV daily for 3 days * Single dose of 40 mg IV Lasix was ordered today. Re-evaluate edema tomorrow. * Discontinue with Bumex 1 mg IV every 8 hours given worsening of renal functions. * Discontinue home medications of metoprolol succinate 25 mg daily * Hold home medication losartan due to ANDREA Pulmonary hypertension * Continue with supplemental O2 therapy to maintain oxygen saturation greater than 92% Obstructive sleep apnea Morbid obesity, BMI 48.4 kg per m2 * Continue with CPAP at night for breathing support Rheumatoid arthritis * Continue with prednisone 30 mg daily Possible May-Thurner Syndrome * Further investigations to rule out May-Thurner syndrome will be ordered after patient's renal function improves, and flank pain resolves, either inpatient or outpatient. * Home medications were reconciled and resumed * P.r.n. medications for nausea, pain * Continue with insulin sliding scale for hyperglycemia * Continue with the atorvastatin 10 mg, aspirin 81 mg * Replace electrolytes per protocol * SCDs for DVT prophylaxis and help with Peripheral edema * Incentive Spirometry to help with breathing * AM labs: CBC, BMP We will follow up the patient after the nephrostomy tube placement tomorrow. ATTESTATION BY PHYSICIAN I have seen and examined the patient. I reviewed the documentation, medical decision making, and treatment plan as noted by the resident provider above. I agree with the findings and plan of care. Yoshi Barcenas MD, MANALI MD Feb 07, 2024 12:45
--- NOTE | 2024-02-07 12:55 | PN ---
Presented with flank pain, renal colic Suspected UTI Dyspnea, exacerbation of COPD History of diastolic heart failure and pulmonary hypertension, does not appear to be in heart failure during this stay Edema appears to be from May-Thurner syndrome, not from heart failure. Rheumatoid arthritis, immunosuppressed Obstructive sleep apnea Advanced COPD, oxygen use Morbid obesity Patient reports feeling less short of breath today but her flank pain persists. Urology note appreciated. With diuresis for dyspnea, patient has become increasingly prerenal and has potassium 3.0 today. Current creatinine 2.4. Unclear why furosemide was given yesterday afternoon. Physical exam shows a morbidly obese patient with no rales or rhonchi, still mildly breathless but able to speak in full sentences. Heart tones are distant. Abdomen is protuberant but bowel sounds are normal. Persistent edema again noted, suspected May-Thurner syndrome Impression: Although the patient is a high-risk patient medically with obesity and advanced COPD and mild pulmonary hypertension, from a cardiac perspective she can be cleared for anesthesia and surgery if needed. Patient is significantly dehydrated at this point and prerenal with acute kidney injury related to dehydration in part. Recommendation: No further diuretics for the time being, replace potassium, can be cleared for anesthesia and surgery from a cardiac perspective but pulmonary risk should be assessed by others on case. Vitals/Labs Vital Signs Date Time Temp Pulse Resp B/P (MAP) Pulse Ox O2 Delivery O2 Flow Rate FiO2 02/07/24 12:34 98.1 107 17 134/53 91 Room Air 21 02/07/24 07:59 2.0 Laboratory Tests 02/07/24 04:05 Medications Current Medications Diphenhydramine HCl 50 mg ONCE ONCE IM; Start 02/04/24 at 10:00; Stop 02/04/24 at 10:08; Status DC Sodium Chloride 1,000 ml @ 0 mls/hr ONCE ONCE IV; Start 02/04/24 at 11:30; Stop 02/04/24 at 11:31; Status DC Ceftriaxone Sodium 1 gm Q12H IVPB Last administered on 02/06/24at 23:39; Start 02/04/24 at 12:00; Stop 02/14/24 at 11:59 Acetaminophen 650 mg Q6H PRN PO; Start 02/04/24 at 12:30; Stop 03/05/24 at 12:29 Ondansetron HCl 4 mg Q6H PRN IVP Last administered on 02/07/24at 11:19; Start 02/04/24 at 12:30; Stop 03/05/24 at 12:29 Morphine Sulfate 2 mg Q6H PRN IVP Last administered on 02/06/24at 08:38; Start 02/04/24 at 12:30; Stop 02/06/24 at 12:11; Status DC Potassium Chloride 100 ml @ 100 mls/hr AD PRN IV Last administered on 02/07/24at 04:55; Start 02/04/24 at 12:30; Stop 03/05/24 at 12:29 Potassium Chloride 10 meq AD PRN PO; Start 02/04/24 at 12:30; Stop 03/05/24 at 12:29 Potassium Chloride 10 meq AD PRN PO Last administered on 02/04/24at 17:16; Start 02/04/24 at 12:30; Stop 03/05/24 at 12:29 Albuterol 1 udvial Q6H PRN IH; Start 02/04/24 at 12:30; Stop 03/05/24 at 12:29 Morphine Sulfate 2 mg Q6H PRN IVP; Start 02/04/24 at 12:30; Stop 02/04/24 at 12:27; Status DC Pantoprazole Sodium 40 mg DAILY PO; Start 02/05/24 at 09:00; Stop 03/06/24 at 08:59 Diltiazem HCl 120 mg Q24H PO Last administered on 02/05/24at 13:11; Start 02/04/24 at 12:30; Stop 02/06/24 at 07:23; Status DC Aspirin 81 mg Q24H PO Last administered on 02/04/24at 12:45; Start 02/04/24 at 12:30; Stop 03/05/24 at 12:29 Insulin Human Regular INSULIN SLIDING SCAL... ACHS SQ; Start 02/04/24 at 16:30; Stop 03/05/24 at 16:29 Prednisone 30 mg Q24H PO Last administered on 02/04/24at 12:45; Start 02/04/24 at 12:30; Stop 03/05/24 at 12:29 Metoprolol Succinate 25 mg DAILY PO Last administered on 02/05/24at 09:29; Start 02/04/24 at 15:00; Stop 02/06/24 at 07:23; Status DC Cetirizine HCl 10 mg Q24H PO Last administered on 02/04/24at 12:52; Start 02/04/24 at 13:00; Stop 03/05/24 at 12:59 Isosorbide Mononitrate 30 mg DAILY PO Last administered on 02/05/24at 09:29; Start 02/04/24 at 15:00; Stop 02/06/24 at 07:07; Status DC Acetazolamide Sodium 500 mg DAILY IV Last administered on 02/05/24at 09:29; Start 02/04/24 at 13:30; Stop 02/07/24 at 13:29 Bumetanide 1 mg Q8H IVP Last administered on 02/06/24at 05:32; Start 02/04/24 at 13:30; Stop 02/06/24 at 07:07; Status DC Atorvastatin Calcium 10 mg DAILY PO; Start 02/05/24 at 09:00; Stop 03/06/24 at 08:59 Bupropion HCl 150 mg DAILY PO; Start 02/05/24 at 09:00; Stop 03/06/24 at 08:59 Clonazepam 0.5 mg HSPRN PRN PO Last administered on 02/06/24at 20:29; Start 02/04/24 at 15:30; Stop 03/05/24 at 15:29 Pregabalin 100 mg DAILY PO; Start 02/05/24 at 09:00; Stop 03/06/24 at 08:59 Miscellaneous Medication 1 tab DAILY PO; Start 02/05/24 at 09:00; Stop 02/04/24 at 17:04; Status DC Sodium Chloride 1,000 ml @ 50 mls/hr Q20H IV Last administered on 02/06/24at 16:07; Start 02/05/24 at 10:00; Stop 02/07/24 at 09:20; Status DC Morphine Sulfate 2 mg ONCE ONCE IVP Last administered on 02/06/24at 04:27; Start 02/06/24 at 04:30; Stop 02/06/24 at 04:32; Status DC Hydromorphone HCl 1 mg Q4H PRN IVP Last administered on 02/07/24at 11:13; Start 02/06/24 at 12:30; Stop 02/11/24 at 12:29 Furosemide 40 mg STK-MED ONCE .ROUTE Last administered on 02/06/24at 14:20; Start 02/06/24 at 13:48; Stop 02/06/24 at 13:48; Status DC Potassium Chloride 20 meq QID PO; Start 02/07/24 at 13:00; Stop 02/08/24 at 09:01; Status UNV AMY AGUILAR MD Feb 07, 2024 12:55
[2024-02-07] MEDS: PoTASSium chloRIDE 20MEQ ER 20 MEQ ERTAB PO SCH (13:00)
[2024-02-07] MEDS: furoSEMIDE 40MG VIAL IV ONE (13:45)
[2024-02-07 14:49] LABS: CREATININE 0.9 mg/dL (0.5-1.0)
--- NOTE | 2024-02-07 15:15 | NUR ---
CALLED DOWN TO [facility], SPOKE WITH LINDA, PER DR GONZALES WAS NOT GOING TO BE ABLE TO DO PROCEDURE (PLACEMENT OF RT NEPHROSTOMY TUBE) TODAY. MINERVA TELLEZ MD AND CHARGE NURSE FARZANA MANDUJANO MADE AWARE.
[2024-02-07 15:24] LABS: BASOPHILS # (AUTO) 0.05 K/uL (0.00-0.20); BASOPHILS % (AUTO) 0.4 % (0.0-5.0); EOSINOPHILS # (AUTO) 0.28 K/uL (0.00-0.70); EOSINOPHILS % (AUTO) 2.5 % (0.0-8.0); HEMATOCRIT 39.9 % (36-48); IMMATURE GRANULOCYTE ABSOLUTE 0.04 K/uL (0-1); LYMPHOCYTES # (AUTO) 3.5 K/uL (1.0-4.8); LYMPHOCYTES % (AUTO) 31.7 % (21.0-51.0); MEAN CORPUSCULAR HGB CONC 30.6 g/dL (32.0-36.0); MEAN CORPUSCULAR VOLUME 91.5 fL (79-99); MONOCYTES # (AUTO) 1.5 K/uL (0.1-1.0); MONOCYTES % (AUTO) 13.6 % (3.0-13.0); NEUTROPHILS # (AUTO) 5.7 K/uL (1.8-7.7); NEUTROPHILS % (AUTO) 51.4 % (40.0-77.0); PLATELET COUNT (AUTO) 211 K/uL (130-400); RED BLOOD CELL COUNT(AUTO) 4.36 MIL/uL (4.00-5.50); RED CELL DISTRIBUTION WIDTH 13.8 % (11.0-15.5); WHITE BLOOD COUNT (AUTO) 11.2 K/uL (4.8-10.8)
--- NOTE | 2024-02-07 20:28 | PN ---
SUBJECTIVE: A 63-year-old female initially presented with flank pain. The patient was found to have nephrolithiasis. The patient's CT scan did reveal hydronephrosis. The patient is scheduled for the nephrostomy tube placement. The patient was seen by Urology and she is being seen as a followup visit for all of the above. REVIEW OF SYSTEMS: CONSTITUTIONAL: Her flank pain is improved. HEENT: No change in vision. No change in hearing. CARDIOVASCULAR: No current chest pains or palpitations. PULMONARY: She has chronic shortness of breath. GASTROINTESTINAL: She is tolerating diet. MUSCULOSKELETAL: Complains of weakness. PHYSICAL EXAMINATION: VITAL SIGNS: Blood pressure 100/71, pulse 100. GENERAL: She is a chronically ill, obese female, lying in bed in the medical floor. HEENT: Head is atraumatic. Pupils are equal, roving to light. Oropharynx is without exudate. Nares are clear. NECK: There is no JVP, no thyromegaly. CARDIOVASCULAR: Regular. There is no S3, S4 gallop. LUNGS: Coarse with equal thoracic movement. ABDOMEN: Soft, nondistended, nontender. EXTREMITIES: She has edema. LABORATORY DATA: Sodium 141, potassium is 3, BUN 34, creatinine is 2.4. Hemoglobin 12, hematocrit 42. IMPRESSION: * [id number] renal dysfunction. * Obstructive uropathy. * Nephrolithiasis. * Electrolyte abnormalities. * Volume overload. PLAN: The patient does have significant anemia, we will discontinue the IV fluids. Once the creatinine stabilizes post-nephrostomy tube, the patient will be started on diuretics. The patient's electrolytes have all been aggressively repleted. We will continue to follow closely. All labs can repeat in the morning. The patient with multiple questions, all of which were all answered. TID: [id number] RECEIPT: [id number]
[2024-02-07] MEDS: HEParin 5,000 UNIT VIAL SQ SCH (23:23)
[2024-02-08] VITALS (18 sets, daily range): BP systolic 99–145; BP diastolic 43–77; PULSE 84–110; RESP 17–20; TEMP 97.7–98.4; O2SAT 92–95
[2024-02-08 05:43] LABS: BASOPHILS # (AUTO) 0.04 K/uL (0.00-0.20); BASOPHILS % (AUTO) 0.5 % (0.0-5.0); EOSINOPHILS # (AUTO) 0.31 K/uL (0.00-0.70); EOSINOPHILS % (AUTO) 3.7 % (0.0-8.0); HEMATOCRIT 34.3 % (36-48); IMMATURE GRANULOCYTE ABSOLUTE 0.04 K/uL (0-1); LYMPHOCYTES # (AUTO) 3.1 K/uL (1.0-4.8); LYMPHOCYTES % (AUTO) 36.4 % (21.0-51.0); MEAN CORPUSCULAR HEMOGLOBIN 27.8 pg (27.0-33.0); MEAN CORPUSCULAR HGB CONC 30.6 g/dL (32.0-36.0); MEAN CORPUSCULAR VOLUME 90.7 fL (79-99); MONOCYTES # (AUTO) 1.2 K/uL (0.1-1.0); MONOCYTES % (AUTO) 13.8 % (3.0-13.0); NEUTROPHILS # (AUTO) 3.8 K/uL (1.8-7.7); NEUTROPHILS % (AUTO) 45.1 % (40.0-77.0); PLATELET COUNT (AUTO) 216 K/uL (130-400); RED BLOOD CELL COUNT(AUTO) 3.78 MIL/uL (4.00-5.50); RED CELL DISTRIBUTION WIDTH 13.8 % (11.0-15.5); WHITE BLOOD COUNT (AUTO) 8.4 K/uL (4.8-10.8)
[2024-02-08 06:11] LABS: CREATININE 1.5 mg/dL (0.5-1.0)
[2024-02-08 06:22] LABS: POTASSIUM 2.9 mmol/L (3.5-5.1)
--- NOTE | 2024-02-08 09:04 | PN ---
SUBJECTIVE: A 63-year-old female with the history of hypertension and rheumatoid arthritis. She has a history of sleep apnea. She presented to the hospital and found to have obstructive uropathy. The patient is scheduled for nephrostomy tube placement and the patient is being seen as a followup visit for all of the above. She does have an elevated BUN and creatinine. REVIEW OF SYSTEMS: CONSTITUTIONAL: Complained of the pain. HEENT: No change in vision. No change in hearing. CARDIOVASCULAR: No current chest pains or palpitations. PULMONARY: No shortness of breath. GASTROINTESTINAL: She is tolerating a diet. MUSCULOSKELETAL: Complains of weakness. PHYSICAL EXAMINATION: VITAL SIGNS: Blood pressure 114/64, pulse 80s. GENERAL: Chronically ill female, obese, lying in bed, on the medical floor. HEENT: Head is atraumatic. Pupils equal, roving to light. Oropharynx is without exudate. Nares are clear. NECK: There is no JVP. There is no thyromegaly, no mass. CARDIOVASCULAR: Regular. There is no S3, S4, gallop. LUNGS: Coarse with equal thoracic movement. ABDOMEN: Soft, nondistended, nontender. EXTREMITIES: Reveal no clubbing, no cyanosis. NEUROLOGIC: She is awake. She is alert. LABORATORY DATA: Sodium 142, potassium is 2.9, BUN 26, creatinine 1.5. IMPRESSION: * Renal dysfunction. * Obstructive uropathy. * Hypertension. * Electrolyte abnormalities. * History of rheumatoid arthritis. PLAN: The patient's creatinine has somewhat stabilized. The patient's potassium has been aggressively repleted. The patient is scheduled for nephrostomy tube placement later today. The patient had previously been seen by Urology. We will continue to follow closely. The patient with multiple questions, all of which were answered. TID: [id number] RECEIPT: [id number]
[2024-02-08] MEDS ORDERED: HEParin-NS 1,000 UNIT/500 ML 500 ML IV ONE (14:04)
[2024-02-08] MEDS ORDERED: IOHEXOL-350 50ML VIAL IV ONE (14:04)
[2024-02-08] MEDS ORDERED: LIDOCAINE HCL 400MG/20ML VIAL ONE (14:05)
[2024-02-08] MEDS ORDERED: FENTanyl CITRate PF 50 MCG/1 ML 2ML VIAL ONE (15:11)
[2024-02-08] MEDS ORDERED: MIDAZOLAM HCL 1 MG/ML 2ML VIAL ONE (15:11)
--- NOTE | 2024-02-08 16:31 | PN ---
[facility] PROGRESS NOTE Date of Service: Feb 08, 2024 Time of Service: 12:00 SUBJECTIVE:- The patient is a 63-year-old female with a past medical history of hypertension, type 2 diabetes mellitus, pulmonary hypertension on continuous O2 at home, congestive heart failure, morbid obesity with BMI 48.4 kg/m2, obstructive sleep apnea uses CPAP at home, rheumatoid arthritis on chronic steroids and Humira injections, chronic back pain presented to emergency department at [facility] yesterday for the evaluation of the bilateral flank pain of the past 2 weeks. She had an ER visit on 01/20 with the similar complaints were CT abdomen and pelvis without contrast was done which showed 6 mm stone in the proximal right ureter with no hydronephrosis. She was treated with hydrocodone and Flomax and was told to follow urologist outpatient. She did not follow the urologist and continues to have a persistent pain along with a cloudy appearance of urine. * She follows Dr. Ribera cardiology as outpatient for CHF, and due to bilateral lower extremity edema, he increase the dose of Lasix to 40 mg b.i.d. * She was recently diagnosed with pulmonary hypertension and following Dr. Carrillo and has been on oxygen therapy at home. She reported 40 lb weight gain over last several months and reports having significant bilateral lower extremity edema. * She also sees a trim machine operator for rheumatoid arthritis and has been on chron ic steroids with prednisone 30 mg daily and Humira injections. On presentation, significant labs for sodium of 147, potassium 3.2, creatinine 1.6, BNP normal of 16. Creatinine on 01/20 was 1.1. Renal ultrasound showed small cyst, once on each kidney and nonobstructive 1 cm stone in the right kidney, no evidence of mass or hydronephrosis. Urinalysis showed cloudy appearance, trace occult blood, small leukocyte esterase, RBCs 6-10, WBC 2-5, urine squamous epithelial cells moderate and few uric acid crystals. Venous Doppler for negative for any evidences of thrombosis. Cardiology consult was made due to underlying heart failure and pulmonary hypertension, urology and nephrology consult was made due to persistent nephrolithiasis. She was admitted for the management of ANDREA on CKD, concern for volume overload, persistent right nephrolithiasis developing UTI. 02/05/24- The patient was examined today, with family at bedside. She is lying on the bed, does not seem to be in distress, however is complaining about the pelvic pain. Her vitals have been nonsignificant except slightly tachypneic respiratory rate from 22-24. She has been on 2 L of nasal cannula * Per Cardiology note, the patient has a mild hypertension and the recommendations were made to continue diltiazem. For chronic diastolic heart failure continue IV diuretics. She also has a bilateral lower extremity edema suspected to be May-Thurner syndrome. * Per Urology note, the patient needs a right nephrostomy tube replacement. The procedure was supposed to happened last night after CT scan however the patient did not go for CT scan yesterday because she feels claustrophobic and needs anxiolytics before the procedure which she did not receive yesterday. No follow up was done, CT scan was canceled however and was done today * Per nephrology, she was started with 100 cc/hour IV fluids, and need further workup for possible iron-deficiency anemia. Labs: Sodium 146, potassium 3.4, carbon dioxide 38, BUN 26, creatinine went up to 1.7 from 1.6, GFR 34, normal liver enzymes, albumin 3.0. Assessment and plan discussed below. 02/06/24- The patient was examined today, with family on the bedside. She has been on morphine, however complaining of still excruciating pain, 11/02 at present. The patient was supposed to go for right nephrostomy tube placement however per Dr. Arevalo and the radiologist conversations, she will be first going for IVP with diuresis to evaluate the intensity or severity of hydronephrosis. Based on that, nephrostomy tube placement decision will be made. Labs: Sodium 145, potassium 3.2, BUN went up to 36 from 6, creatinine went up to 2.3 From 1.7, GFR went down to 23 from 34. Due to worsening of renal functions, the work car operator discontinued Bumex. Also Dr. Ribera does not think the patient should be on isosorbide dinitrate, metoprolol. She has mild pulmonary hypertension and he also does not think diltiazem is the first-line medication without underlying AFib. He thinks causes of bilateral edema is due to May-Thurner syndrome which can be managed inpatient or outpatient after improvement in renal functions. Recommendations will be followed. Further assessment and plan discussed below. 02/07/24: The patient was examined today, with the family on the bedside. She has been on Dilaudid 1 mg Q4 since yesterday. Pain is somewhat manageable with the Dilaudid. IVP with Lasix study yesterday showed absence of excretion on the right consistent with a high-grade obstruction in the right proximal kidney with normal uptake and excretion on the left. She denies any shortness of breath, chest pain, difficulty in urination or any other symptoms. She remains afebrile, however had few episodes of tachycardia in the blood pressure is running on the softer side with SBP is in 100 and diastolic in 70s she has been on and off to the nasal cannula. She has 3+ bilateral pitting edema. Labs: WBCs went up to 13.2 From 10.1, sodium 141, potassium went down to 3.0 from 3.2, chloride 98, BUN went down to 34 from 36, went up to 2.4 From 2.3. We will give 40 mg IV Lasix today. She is going for the nephrostomy tube placement around 3:00 p.m. today. Further assessment and plan discussed below. 02/08/24: The patient was sent for nephrostomy tube placement during the visit. Family was available in the room. Updates were collected from the nurse. She has been in excruciating pain requiring Dilaudid Q4. Pain is somewhat manageable with it. Despite of no vomiting or diarrheal episodes, patient's potassium has remained low. We will monitor K and replace per protocol. Kidney functions are improving. She has been on and off the nasal cannula and using CPAP at night. Labs: Potassium went down to 2.9 from 3.0, BUN went down to 26 from 34, Creatinine went down to 1.5 from 2.4, GFR 39, Hemoglobin 10.5. Evaluate the patient post nephrostomy tube insertion. Further assessment and plan as discussed below REVIEW OF SYSTEMS CONSTITUTIONAL: Denies fevers, chills, or night sweats. No unintentional weight loss reported. NEUROLOGICAL: Denies headache, amaurosis fugax, motor weakness, sensory deficit, vertigo/spinning sensation, gait abnormalities, or tremors. ENT: No hearing loss, otalgia, otorrhea, rhinitis, rhinorrhea, hoarseness, or sore throat. CARDIOVASCULAR: Lower extremity edema, PULMONARY: Denies any shortness of breath, cough, phlegm/sputum, hemoptysis, pleuritic chest pain. SLEEP: Denies morning headaches, daytime somnolence or napping. Denies difficulty falling asleep, staying asleep, waking from sleep. Denies knowledge of snoring. GASTROINTESTINAL: Nausea GENITOURINARY: Persistent Flank pain with dysuria ENDOCRINOLOGIC: Denies polyuria, polydipsia, polyphagia or heat/cold int olerances. HEMATOLOGIC: Denies thrombophilia/previous clots, or coagulopathy/bleeding disorders. ONCOLOGIC: Denies personal history of malignancy. DERMATOLOGIC: Denies rashes or pruritus. PSYCHIATRIC: Denies any suicidal or homicidal ideation. Denies hallucinations. PHYSICAL EXAM GENERAL APPEARANCE: The patient is awake, but appears sleepy, patient recently received IM dose of Benadryl, patient is obese NEUROLOGICAL: Cranial nerves II-XII grossly intact. Motor is 5/5 in bilateral upper and lower extremities proximal to distal. No sensory deficits. HEENT: Face is symmetric. Pupils are equal and reactive. Extraocular movements are intact. NECK: Supple. No JVD. No thyromegaly. No submental, submandibular, pre- /postauricular, occipital or supraclavicular lymphadenopathy. CHEST: Normal chest expansion. No Telemetry. LUNGS: minimal crackles noted at bilateral lung bases CARDIOVASCULAR: Regular. S1 and S2 normal. No appreciable rubs, murmurs or gallops. ABDOMEN: Soft, nontender, and nondistended. There is no rebound, voluntary guarding, or rigidity. : Deferred. No Schuler. EXTREMITIES: Legs are swollen with 3+ pitting edema bilaterally SKIN: No skin breakdown. Vital Signs (last 8hr) Date Time Temp Pulse Resp B/P (MAP) Pulse Ox O2 Delivery O2 Flow Rate FiO2 02/08/24 11:41 98.2 89 17 145/57 91 Nasal Cannula 2.0 24 LABS: Laboratory: Test 02/08/24 16:24 02/08/24 04:36 02/07/24 04:05 Range/Units Whole Blood Glucose 121 H 70-110 MG/DL White Blood Count 8.4 4.8-10.8 K/uL Red Blood Count 3.78 L 4.00-5.50 MIL/uL Hemoglobin 10.5 L 12.0-16.0 g/dL Hematocrit 34.3 L 36-48 % Mean Corpuscular Volume 90.7 79-99 fL Mean Corpuscular Hemoglobin 27.8 27.0-33.0 pg Mean Corpuscular Hemoglobin Concent 30.6 L 32.0-36.0 g/dL Red Cell Distribution Width 13.8 11.0-15.5 % Platelet Count 216 130-400 K/uL Mean Platelet Volume 10.5 7.5-10.5 fL Immature Granulocyte % (Auto) 0.5 0-1 % Neutrophils (%) (Auto) 45.1 40.0-77.0 % Lymphocytes (%) (Auto) 36.4 21.0-51.0 % Monocytes (%) (Auto) 13.8 H 3.0-13.0 % Eosinophils (%) (Auto) 3.7 0.0-8.0 % Basophils (%) (Auto) 0.5 0.0-5.0 % Neutrophils # (Auto) 3.8 1.8-7.7 K/uL Lymphocytes # (Auto) 3.1 1.0-4.8 K/uL Monocytes # (Auto) 1.2 H 0.1-1.0 K/uL Eosinophils # (Auto) 0.31 0.00-0.70 K/uL Basophils # (Auto) 0.04 0.00-0.20 K/uL Absolute Immature Granulocyte (auto 0.04 0-1 K/uL Nucleated Red Blood Cells 0.0 0.0-0.19 % Sodium Level 142 136-145 mmol/L Potassium Level 2.9 *L 3.5-5.1 mmol/L Chloride Level 103 101-111 mmol/L Carbon Dioxide Level 34 H 21-32 mmol/L Blood Urea Nitrogen 26 H 7-18 mg/dL Creatinine 1.5 H 0.5-1.0 mg/dL Glomerular Filtration Rate Calc 39 >90 mL/min Random Glucose 107 H 70-105 mg/dL Total Calcium 8.9 8.5-10.1 mg/dL Magnesium Level 2.00 1.80-2.40 mg/dL Current Medications Medications (Trade) Dose Ordered Sig/Ashanti Route PRN Reason Start Time Stop Time Status Last Admin Dose Admin Acetaminophen (TYLenol 325MG TAB) 650 mg Q6H PRN PO MILD PAIN (1-3) 02/04/24 12:30 03/05/24 12:29 Acetazolamide Sodium (DIAmox 500MG INJ) 500 mg DAILY IV 02/04/24 13:30 02/07/24 13:29 DC 02/07/24 13:45 500 MG Albuterol (DUOneb) 1 udvial Q6H PRN IH SHORTNESS OF BREATH 02/04/24 12:30 03/05/24 12:29 Aspirin (Aspirin 81mg Chew Tab) 81 mg Q24H PO 02/04/24 12:30 03/05/24 12:29 02/04/24 12:45 81 MG Atorvastatin Calcium (LIPItor 10MG) 10 mg DAILY PO 02/05/24 09:00 02/08/24 13:21 DC Atorvastatin Calcium (LIPItor 10MG) 10 mg HS PO 02/08/24 21:00 03/06/24 08:59 Bumetanide (Bumex 1mg Vial) 1 mg Q8H IVP 02/04/24 13:30 02/06/24 07:07 DC 02/06/24 05:32 1 MG Bupropion HCl (WellBUTrin SR 150MG) 150 mg DAILY PO 02/05/24 09:00 03/06/24 08:59 Ceftriaxone Sodium (ROCEphine 1G INJ) 1 gm Q12H IVPB 02/04/24 12:00 02/14/24 11:59 02/08/24 13:34 1 GM Cetirizine HCl (ZYRtec 5 MG TABLET) 10 mg Q24H PO 02/04/24 13:00 03/05/24 12:59 02/04/24 12:52 10 MG Clonazepam (clonazePAM 0.5 mg) 0.5 mg HSPRN PRN PO ANXIETY/AGITATION 02/04/24 15:30 03/05/24 15:29 02/06/24 20:29 0.5 MG Diltiazem HCl (CARDIzem 120MG CD) 120 mg Q24H PO 02/04/24 12:30 02/06/24 07:23 DC 02/05/24 13:11 120 MG Heparin Sodium (Porcine) (HEParin 5,000 UNIT VIAL) 5,000 unit Q8H SQ 02/07/24 22:00 03/08/24 21:59 02/07/24 23:23 5,000 UNIT Hydromorphone HCl (DiLAUDid 1MG INJ) 1 mg Q4H PRN IVP SEVERE PAIN (7-10) 02/06/24 12:30 02/11/24 12:29 02/08/24 13:34 1 MG Insulin Human Regular (humuLIN R 100 UNIT/ML 3ML) INSULIN SLIDING SCAL... ACHS SQ 02/04/24 16:30 03/05/24 16:29 Isosorbide Mononitrate (Imdur 30mg Sr) 30 mg DAILY PO 02/04/24 15:00 02/06/24 07:07 DC 02/05/24 09:29 30 MG Metoprolol Succinate (TopROL XL) 25 mg DAILY PO 02/04/24 15:00 02/06/24 07:23 DC 02/05/24 09:29 25 MG Miscellaneous Medication (Isosorbide Dinitrate ) 1 tab DAILY PO 02/05/24 09:00 02/04/24 17:04 DC Morphine Sulfate (morPHINE 2MG SYG) 2 mg Q6H PRN IVP SEVERE PAIN (7-10) 02/04/24 12:30 02/04/24 12:27 DC Morphine Sulfate (morPHINE 2MG SYG) 2 mg Q6H PRN IVP SEVERE PAIN (7-10) 02/04/24 12:30 02/06/24 12:11 DC 02/06/24 08:38 2 MG Ondansetron HCl (zoFRAN 4MG INJ) 4 mg Q6H PRN IVP NAUSEA/VOMITING 02/04/24 12:30 03/05/24 12:29 02/07/24 11:19 4 MG Pantoprazole Sodium (PROTonix 40MG TAB) 40 mg DAILY PO 02/05/24 09:00 03/06/24 08:59 Potassium Chloride 100 ml @ 100 mls/hr AD PRN IV POTASSIUM PROTOCOL 02/04/24 12:30 03/05/24 12:29 02/07/24 04:55 100 MLS/HR Potassium Chloride (K-Dur 10meq Sr Tab) 10 meq AD PRN PO POTASSIUM PROTOCOL 02/04/24 12:30 03/05/24 12:29 02/04/24 17:16 10 MEQ Potassium Chloride (K-Dur/Klor-Con 20meq) 20 meq QID PO 02/07/24 13:00 02/08/24 09:01 DC 02/07/24 20:55 20 MEQ Potassium Chloride (KCl 10% Elixir 20meq/15ml) 10 meq AD PRN PO POTASSIUM PROTOCOL 02/04/24 12:30 03/05/24 12:29 Prednisone (deltaSONE/ ORASONE 10MG) 30 mg Q24H PO 02/04/24 12:30 03/05/24 12:29 02/04/24 12:45 30 MG Pregabalin (LYRica 100MG) 100 mg DAILY PO 02/05/24 09:00 03/06/24 08:59 Sodium Chloride 1,000 ml @ 50 mls/hr Q20H IV 02/05/24 10:00 02/07/24 09:20 DC 02/06/24 16:07 50 MLS/HR DIAGNOSTICS / RADIOLOGY: [place] [address] IMAGING REPORT Signed PATIENT: STEW LAKE MR#: [id number] : 1960 SEX: F AGE: 63 LOCATION: 4DH ORDER 1013 STATUS: ADM IN REPORT#: [id number] SERVICE 1010 REASON: R/O hydronephrosis ORDERING PHYSICIAN: HARSHA MEDEROS MD PROCEDURE: RENAL LASX - NM RENOGRAM W/ LASIX NM RENOGRAM W/ LASIX REASON: R/O hydronephrosis COMPARISON: None TECHNIQUE: Routine imaging protocol was performed following injection of 7.3 mCi technetium 99 M MAG3. 40 mg of Lasix was administered IV push 15 minutes into the exam. FINDINGS: Images show prompt the isotope uptake and excretion on the left. Left has a normal-appearing excretion curve is accentuated by Lasix. There is delayed isotope uptake on the right. There is gradually increasing activity curve on the right consistent with a high degree of obstruction, this is not significantly affected by Lasix. The T1 half following Lasix on the left is 12.6 minutes, within normal limits. The T1 half on the right cannot be calculated as the activity curve continues to rise rather than fall. Split function is 74.1% left and 25.9% right IMPRESSION: 1. Delayed nephrogram and absence of excretion on the right consistent with a high-grade obstruction in the right proximal kidney 2. Normal uptake and excretion on the left. DICTATED BY: DIANN RUBY MD DATE: 02/06/241635 ELECTRONICALLY SIGNED BY: DIANN RUBY MD DATE: 02/06/24 [address] [place] [id number] IMAGING REPORT Signed PATIENT: STEW LAKE MR#: [id number] : 1960 SEX: F AGE: 63 LOCATION: [facility] ORDER 1205 STATUS: ADM IN [facility] REPORT#: [id number] SERVICE 1200 REASON: hx of pulm htn, assess for heart failure, SHC to read ORDERING PHYSICIAN: LOR PATRICIA MD PROCEDURE: ECHO CMP - ECHO 2-D COMPLETE APPROVED REPORT EXAM: Two-dimensional and M-mode echocardiogram with Doppler and color Doppler. INDICATION ICD: pulmonary hypertension Heart Failure 2D Dimensions RVDd 3.7 cm LVEF(%) 63.7 (>50%) LVED Vol(simp.) 80.4 mL IVSd 1.2 (0.7-1.1cm) FS(%) 35 % LVES Vol(simp.) 30.3 mL LVDd 4.9 (3.8-5.6cm) LA (2D) 4.0 (1.6-4.0cm) LVEF(%, simp.) 62 % PWd 1.0 (0.7-1.1cm) Ao Root(2D) 3.1 (2.0-3.7cm) LA ESV INDEX (4CH) 21.70 mL/m2 IVSs 1.6 cm LVOT diam 2.4 (1.8-2.4cm) LA ESV INDEX (2CH) 21.30 mL/m2 LVDs 3.2 (2.5-4.0cm) LA ESV INDEX (BP) 23.70 mL/m2 PWs 1.6 cm Deformation Strain Apical 4 22.0 % Apical 2 24.0 % Apical 3 24.0 % Global Strain 23.0 % M-Mode Dimensions EPSS 0.6 cm LA (MM) 3.6 (1.6-4.0cm) Ao Root(MM) 3.6 (2.0-3.7cm) Aortic Valve AoV VTI 0.3 m Ao Mean GR 5.0 mmHg LVOT VTI 0.25 m CHRISTOPHER (VMAX) 3.5 cm2 CHRISTOPHER (VTI) 3.5 cm2 Mitral Valve MV E Vmax 94.6 cm/s DECEL Time 229 ms MV A Vmax 59.7 cm/s P 1/2 T 87 ms E/A ratio 1.6 MVA (PHT) 2.5 cm2 MR Max PG 51 mmHg TDI E/E' Medial 12.0 E/E' Lateral 9.8 Medial E' Peak V 7.90 cm/s Lateral E' Peak V 9.70 cm/s Pulmonary Valve PV Vmax 1.0 m/s PV Peak GR 4.1 mmHg Left Ventricle The left ventricle is normal size. GLS -23%. There is normal left ventricular wall thickness. Septal bounce is present. LVEF is55-60%. The left ventricular diastolic function is normal. Right Ventricle The right ventricle is normal size. The right ventricular systolic function is normal. Atria The left atrium size is normal. The right atrium size is normal. Aortic Valve The aortic valve is normal in structure. No aortic regurgitation is present. There is no aortic valvular stenosis. Mitral Valve The mitral valve is normal in structure. Trace mitral regurgitation. There is no mitral valve stenosis. Tricuspid Valve The tricuspid valve is normal in structure. There is no tricuspid valve regurgitation noted. Pulmonic Valve The pulmonary valve is normal in structure. There is no pulmonic valvular regurgitation. Great Vessels The aortic root is normal in size. The IVC is dilated and collapses >50% with inspiration. Pericardium There is no pericardial effusion. Other Information Quality : Good Rhythm : NSR Conclusion LVEF is55-60%. Septal bounce is present. The left ventricular diastolic function is normal. Trace mitral regurgitation. Estiamted pulmonary pressure is within normal range DICTATED BY: ANA WALKER DO DATE: 02/05/24 0742 ELECTRONICALLY SIGNED BY: ANA WALKER DO DATE: 02/05/24 1426 [facility] [address] [place], [place] [phone] IMAGING REPORT Signed PATIENT: STEW LAKE MR#: [id number] : 1960 SEX: F AGE: 63 LOCATION: [facility] ORDER 1040 STATUS: ADM IN REPORT#: [id number] SERVICE 1130 REASON: Bilateral flank pain, Nephrolithiasis ORDERING PHYSICIAN: MINERVA TELLEZ MD PROCEDURE: ABD PEL WO - CT ABDOMEN/PELVIS W/O CONTRAST CT ABDOMEN/PELVIS W/O CONTRAST REASON: Bilateral flank pain, Nephrolithiasis COMPARISON: 02/21/2024 FINDINGS: Lung bases are clear. There are no focal liver lesions. The liver is not enlarged.. Spleen and pancreas appear unremarkable. There has been a previous cholecystectomy. There is mild to moderate right hydronephrosis. There is a 6 mm stone in the proximal right ureter at the level of the lower pole of the right kidney. There is an additional 2 mm nonobstructing stone in an upper pole calyx on the right and there are several very small stones lower pole calyx on the right as well. Left kidney appears unremarkable with the exception of a small cyst upper pole. Bowel loops appear unremarkable. This includes normal appearance of the appendix There is no evidence of free fluid or intraperitoneal air. There are no focal fluid collections. Aorta and retroperitoneum appear normal as do pelvic soft tissue structures. The anterior abdominal wall is intact. Osseous structures appear unremarkable. IMPRESSION: 1. 6 mm right ureteral stone at the level of the lower pole right kidney, there is mild to moderate right hydronephrosis. 2. There are several additional very small nonobstructing stones in the right kidney, there are small bilateral cysts as well. 3. Absent gallbladder. CT was performed with one or more following dose reduction techniques: automated exposure control, adjustment of the mA and kv according to patient's size, or use of a iterative reconstruction technique. DICTATED BY: DIANN RUBY MD DATE: 02/05/24 1239 ELECTRONICALLY SIGNED BY: DIANN RUBY MD DATE: 02/05/24 1245 RUN DATE: 02/05/24 [facility] [address] RUN TIME: [phone] [address], [place] [address] Department of Laboratories CLIA # [id number] Regional Transfer Liaison: Mukesh Vallejo DO Specimen Report PATIENT: STEW LAKE ACCT: [id number] LOC: [facility] U: [id number] AGE/SX: 63/F ROOM: [facility] RE02/04/[address]: LOR PATRICIA MD : 1960 BED: 1 DIS: STATUS: ADM IN TLOC: SPEC: [id number] EYAL: 02/04/24 STATUS: COMP REQ: [id number] RECD: 02/04/[address] [facility] [address]: RENATA DE ANDA MD SOURCE: URINE CC ENTR: 02/04/24-[address]: VINCE HASSAN MD [facility]: ORDERED: URINE CULTURE -------- ---- Procedure Result Daniela Date-Time URINE CULTURE Final 02/05/24-631 REPORT URINE >3 COLONY TYPES PRESENT MIXED UMA CONTAMINATION NO FURTHER STUDIES PENDING ASSESSMENT: ANDREA on CKD, POA Developing urinary tract infection, POA Persistent right renal nephrolithiasis, POA Nonresolving bilateral flank pain, POA Hypernatremia, POA Hypokalemia, POA Ruled out acute heart failure exacerbation, POA Underlying history of pulmonary hypertension on continuous O2 therapy as outpatient, POA MARIA TERESA, POA Morbid obesity with BMI 48.4 kg/m2, POA Hypertension, POA Hyperlipidemia, POA Chronic use of outpatient corticosteroids, POA History of chronic back pain, POA Rheumatoid arthritis, POA Possible May-Thurner Syndrome History of chronic outpatient use of benzodiazepines, POA PLAN:- The Patient remains admitted on the medical surgical floor. ANDREA on CKD, POA Developing urinary tract infection, POA Persistent right renal nephrolithiasis, POA Nonresolving bilateral flank pain, POA * Hold IV fluids, diuretics due to worsening of the kidney functions and bilateral 3+ pitting edema. * Restrict oral fluid intake to 1.5 L a day. * Continue with Dilaudid 1 mg q.4 for severe pain. Re-evaluate the pain severity tomorrow. * Assess the patient post nephrostomy tube insertion. Ruled out acute heart failure exacerbation, POA Peripheral edema, POA * Continue with acetazolamide 500 mg IV daily for 3 days * Discontinue with Bumex 1 mg IV every 8 hours given worsening of renal functions. * Discontinue home medications of metoprolol succinate 25 mg daily * Hold home medication losartan due to ANDREA Pulmonary hypertension * Continue with supplemental O2 therapy to maintain oxygen saturation greater than 92% Obstructive sleep apnea Morbid obesity, BMI 48.4 kg per m2 * Continue with CPAP at night for breathing support Rheumatoid arthritis * Continue with prednisone 30 mg daily Possible May-Thurner Syndrome * The patient will be needing of DAPT after the diagnosis of May-Thurner syndrome. Per Blender Helper, the patient needs to recover from ANDREA and Nephrostomy tube placement. Management of May- Thurner will be done as an outp atient by the work car operator 2-4 weeks post discharge. * Home medications were reconciled and resumed * P.r.n. medications for nausea, pain * Continue with insulin sliding scale for hyperglycemia * Continue with the atorvastatin 10 mg, aspirin 81 mg * Replace electrolytes per protocol * Heparin 5000 IU Q8 for DVT prophylaxis. * Incentive Spirometry to help with breathing * AM labs: CBC, BMP We will follow up the patient after the nephrostomy tube placement tomorrow. ATTESTATION BY PHYSICIAN I have seen and examined the patient. I reviewed the documentation, medical decision making, and treatment plan as noted by the resident provider above. I agree with the findings and plan of care. Yosih Barcenas MD, MANALI MD Feb 08, 2024 16:31
--- NOTE | 2024-02-08 16:32 | PN ---
Presented with flank pain, renal colic Suspected UTI Dyspnea, exacerbation of COPD History of diastolic heart failure and pulmonary hypertension, does not appear to be in heart failure during this stay Edema appears to be from May-Thurner syndrome, not from heart failure. Rheumatoid arthritis, immunosuppressed Obstructive sleep apnea Advanced COPD, oxygen use Morbid obesity Patient is in a lot of pain right now, having just had a nephrostomy tube inserted. She also is recovering from conscious sedation, I believe, not completely capable of understanding explanation or asking appropriate questions. Family has been very concerned about perceived delays in the patient's care. They have wanted May-Thurner syndrome evaluated and treated prior to discharge. Before insertion of the nephrostomy tube I felt this might be a reasonable option, but with a fresh insertion of the tube into a vascular organ like the kidney, anticoagulation for venous stent implant and commitment to three months of dual antiplatelet therapy after the procedure, is not advisable. I have explained this in detail to the patient's sister and , and they verbalized understanding and acceptance. We have held diuretics on a patient who is known to have chronic diastolic heart failure, because she was over diuresed earlier in this stay. She had presented with acute dyspnea and severe edema and was thought to be in an acute exacerbation of heart failure. In fact, pulmonary artery pressure was only 39 and there was not clear evidence of an exacerbation of heart failure so the diuretics were discontinued because the patient became severely prerenal with a creatinine as high as 2.3. Plan: We will observe BNP and chest x-ray and renal indices and anticipate resumption of furosemide, probably about 40 mg orally per day, and we will defer evaluation and treatment of May-Thurner syndrome until after I see the patient in the office. I will see the patient within 2-4 weeks after discharge and will follow through as appropriate. Vitals/Labs Vital Signs Date Time Temp Pulse Resp B/P (MAP) Pulse Ox O2 Delivery O2 Flow Rate FiO2 02/08/24 11:41 98.2 89 17 145/57 91 Nasal Cannula 2.0 24 Laboratory Tests 02/08/24 04:36 Medications Current Medications Diphenhydramine HCl 50 mg ONCE ONCE IM; Start 02/04/24 at 10:00; Stop 02/04/24 at 10:08; Status DC Sodium Chloride 1,000 ml @ 0 mls/hr ONCE ONCE IV; Start 02/04/24 at 11:30; Stop 02/04/24 at 11:31; Status DC Ceftriaxone Sodium 1 gm Q12H IVPB Last administered on 02/08/24at 13:34; Start 02/04/24 at 12:00; Stop 02/14/24 at 11:59 Acetaminophen 650 mg Q6H PRN PO; Start 02/04/24 at 12:30; Stop 03/05/24 at 12:29 Ondansetron HCl 4 mg Q6H PRN IVP Last administered on 02/07/24at 11:19; Start 02/04/24 at 12:30; Stop 03/05/24 at 12:29 Morphine Sulfate 2 mg Q6H PRN IVP Last administered on 02/06/24at 08:38; Start 02/04/24 at 12:30; Stop 02/06/24 at 12:11; Status DC Potassium Chloride 100 ml @ 100 mls/hr AD PRN IV Last administered on 02/07/24at 04:55; Start 02/04/24 at 12:30; Stop 03/05/24 at 12:29 Potassium Chloride 10 meq AD PRN PO; Start 02/04/24 at 12:30; Stop 03/05/24 at 12:29 Potassium Chloride 10 meq AD PRN PO Last administered on 02/04/24at 17:16; Start 02/04/24 at 12:30; Stop 03/05/24 at 12:29 Albuterol 1 udvial Q6H PRN IH; Start 02/04/24 at 12:30; Stop 03/05/24 at 12:29 Morphine Sulfate 2 mg Q6H PRN IVP; Start 02/04/24 at 12:30; Stop 02/04/24 at 12:27; Status DC Pantoprazole Sodium 40 mg DAILY PO; Start 02/05/24 at 09:00; Stop 03/06/24 at 08:59 Diltiazem HCl 120 mg Q24H PO Last administered on 02/05/24at 13:11; Start 02/04/24 at 12:30; Stop 02/06/24 at 07:23; Status DC Aspirin 81 mg Q24H PO Last administered on 02/04/24at 12:45; Start 02/04/24 at 12:30; Stop 03/05/24 at 12:29 Insulin Human Regular INSULIN SLIDING SCAL... ACHS SQ; Start 02/04/24 at 16:30; Stop 03/05/24 at 16:29 Prednisone 30 mg Q24H PO Last administered on 02/04/24at 12:45; Start 02/04/24 at 12:30; Stop 03/05/24 at 12:29 Metoprolol Succinate 25 mg DAILY PO Last administered on 02/05/24at 09:29; Start 02/04/24 at 15:00; Stop 02/06/24 at 07:23; Status DC Cetirizine HCl 10 mg Q24H PO Last administered on 02/04/24at 12:52; Start 02/04/24 at 13:00; Stop 03/05/24 at 12:59 Isosorbide Mononitrate 30 mg DAILY PO Last administered on 02/05/24at 09:29; Start 02/04/24 at 15:00; Stop 02/06/24 at 07:07; Status DC Acetazolamide Sodium 500 mg DAILY IV Last administered on 02/07/24at 13:45; Start 02/04/24 at 13:30; Stop 02/07/24 at 13:29; Status DC Bumetanide 1 mg Q8H IVP Last administered on 02/06/24at 05:32; Start 02/04/24 at 13:30; Stop 02/06/24 at 07:07; Status DC Atorvastatin Calcium 10 mg DAILY PO; Start 02/05/24 at 09:00; Stop 02/08/24 at 13:21; Status DC Bupropion HCl 150 mg DAILY PO; Start 02/05/24 at 09:00; Stop 03/06/24 at 08:59 Clonazepam 0.5 mg HSPRN PRN PO Last administered on 02/06/24at 20:29; Start 02/04/24 at 15:30; Stop 03/05/24 at 15:29 Pregabalin 100 mg DAILY PO; Start 02/05/24 at 09:00; Stop 03/06/24 at 08:59 Miscellaneous Medication 1 tab DAILY PO; Start 02/05/24 at 09:00; Stop 02/04/24 at 17:04; Status DC Sodium Chloride 1,000 ml @ 50 mls/hr Q20H IV Last administered on 02/06/24at 16:07; Start 02/05/24 at 10:00; Stop 02/07/24 at 09:20; Status DC Morphine Sulfate 2 mg ONCE ONCE IVP Last administered on 02/06/24at 04:27; Start 02/06/24 at 04:30; Stop 02/06/24 at 04:32; Status DC Hydromorphone HCl 1 mg Q4H PRN IVP Last administered on 02/08/24at 13:34; Start 02/06/24 at 12:30; Stop 02/11/24 at 12:29 Furosemide 40 mg STK-MED ONCE .ROUTE Last administered on 02/06/24at 14:20; Start 02/06/24 at 13:48; Stop 02/06/24 at 13:48; Status DC Potassium Chloride 20 meq QID PO Last administered on 02/07/24at 20:55; Start 02/07/24 at 13:00; Stop 02/08/24 at 09:01; Status DC Furosemide 40 mg ONCE ONCE IV Last administered on 02/07/24at 13:45; Start 02/07/24 at 13:00; Stop 02/07/24 at 13:01; Status DC Heparin Sodium (Porcine) 5,000 unit Q8H SQ Last administered on 02/07/24at 23:23; Start 02/07/24 at 22:00; Stop 03/08/24 at 21:59 Atorvastatin Calcium 10 mg HS PO; Start 02/08/24 at 21:00; Stop 03/06/24 at 08:59 Iohexol 50 ml STK-MED ONCE IV; Start 02/08/24 at 14:04; Stop 02/08/24 at 14:04; Status DC Heparin Sodium/ Sodium Chloride 500 ml @ As Directed STK-MED ONCE IV; Start 02/08/24 at 14:04; Stop 02/08/24 at 14:05; Status DC Lidocaine HCl 20 ml STK-MED ONCE .ROUTE; Start 02/08/24 at 14:05; Stop 02/08/24 at 14:05; Status DC Fentanyl Citrate 100 mcg STK-MED ONCE .ROUTE; Start 02/08/24 at 15:11; Stop 02/08/24 at 15:11; Status DC Midazolam HCl 2 mg STK-MED ONCE .ROUTE; Start 11/15/24 at 15:11; Stop 02/08/24 at 15:12; Status DC AMY AGUILAR MD Feb 08, 2024 16:32
[2024-02-08] MEDS: atorVAStatin 10 MG TABLET PO SCH (20:39)
[2024-02-09] VITALS (12 sets, daily range): BP systolic 126–154; BP diastolic 73–96; PULSE 86–116; RESP 18–24; TEMP 97.7–98.3; O2SAT 91–96
[2024-02-09 05:22] LABS: BASOPHILS # (AUTO) 0.04 K/uL (0.00-0.20); BASOPHILS % (AUTO) 0.5 % (0.0-5.0); EOSINOPHILS # (AUTO) 0.36 K/uL (0.00-0.70); EOSINOPHILS % (AUTO) 4.5 % (0.0-8.0); HEMATOCRIT 36.2 % (36-48); IMMATURE GRANULOCYTE ABSOLUTE 0.04 K/uL (0-1); LYMPHOCYTES # (AUTO) 2.8 K/uL (1.0-4.8); LYMPHOCYTES % (AUTO) 35.3 % (21.0-51.0); MEAN CORPUSCULAR HEMOGLOBIN 28.2 pg (27.0-33.0); MEAN CORPUSCULAR HGB CONC 30.4 g/dL (32.0-36.0); MEAN CORPUSCULAR VOLUME 92.8 fL (79-99); MONOCYTES # (AUTO) 1.2 K/uL (0.1-1.0); MONOCYTES % (AUTO) 15.1 % (3.0-13.0); NEUTROPHILS # (AUTO) 3.5 K/uL (1.8-7.7); NEUTROPHILS % (AUTO) 44.1 % (40.0-77.0); PLATELET COUNT (AUTO) 207 K/uL (130-400); RED CELL DISTRIBUTION WIDTH 13.8 % (11.0-15.5)
[2024-02-09 05:34] LABS: CREATININE 1.2 mg/dL (0.5-1.0); POTASSIUM 3.3 mmol/L (3.5-5.1)
[2024-02-09 05:48] LABS: WBC MORPHOLOGY CONSISTENT W/DIFF
--- NOTE | 2024-02-09 06:19 | NUR ---
PAIN MED DILAUDID 1MG WAS GIVEN AROUND 0459, BUT WHILE I WAS GIVING IT THE IV LEAKED AND PT. STATES "THAT'S WHY I DIDN'T FEEL IT". SHE WAS IN A LOT OF PAIN, PAGED HOSPITALIST AND GOT AN ORDER FOR AN EXTRA DOSE OF DILAUDID X1. WILL CONTINUE TO MONITOR PT.
[2024-02-09] MEDS: hydroMORPHone 1 MG INJ IVP ONE (06:34)
--- NOTE | 2024-02-09 09:16 | PN ---
[facility] CARDIOLOGY PROGRESS NOTE Date Patient Seen: Feb 09, 2024 Time of Visit: 09:00 Interval History: This is a 63-year-old white female with a past medical history of hypertension, type 2 diabetes mellitus, pulmonary hypertension on continuous O2 at home, chronic diastolic congestive heart failure, morbid obesity with BMI 48.4 kg/m2, obstructive sleep apnea on chronic CPAP, rheumatoid arthritis on chronic steroids and Humira injections, chronic back pain who was admitted for intractable bilateral flank pain right greater than left. She was found to have nephrolithiasis and ultimately has undergone placement of a nephrostomy tube on 02/08/2024. Cardiology has been following due to concern for acute on chronic diastolic congestive heart failure and pulmonary hypertension. The patient developed acute kidney injury likely related to diuretic therapy early on in this admission with creatinine rising to 2.3 on 02/06/2024. She had been receiving IV diuretics. She was evaluated by Dr. Will Ribera who felt there was no evidence of acute diastolic heart failure decompensation and her diuretics were held. She was also taking furosemide 40 mg p.o. b.i.d. prior to admission given her chronic lower extremity edema. It is felt that her lower extremity edema has been multifactorial including related to venous insufficiency and possible May-Thurner syndrome, morbid obesity and limited mobility/sedentary lifestyle. There was no evidence of pulmonary hypertension on her 2D echocardiogram on 02/05/2024 and she had normal LV systolic function. This morning, her creatinine is 1.2. Her losartan, metoprolol and diltiazem ER were also held. Her blood pressure has remained stable in the last 24 hours without hypotension. She offers no cardiac complaints of orthopnea, PND, palpitations or chest pain. She has had some right flank pain at the site of her nephrostomy tube placement which is being managed by medical team with analgesic therapy. Physical Examination: GENERAL: Morbidly obese female, sitting at the edge of the bed, No acute distress. HEAD: Normal with no signs of head trauma. EYES: PERRLA, EOMI, conjunctiva and sclera normal. NECK: Supple without JVD. There is no tenderness, lymphadenopathy, or masses. No thyromegaly. Normal carotid upstrokes without bruits. LUNGS: Clear breath sounds bilaterally. No wheezes, or rhonchi. HEART: Normal rate and rhythm. Normal S1 and S2 without murmurs, gallop or rub. VASC: Peripheral pulses difficult to palpate given significant lower extremity edema. EXT: No clubbing or cyanosis. There is 3+ pitting edema with weeping lesions to the left lower extremity, with edema to the bilateral lower extremities. NEURO: Awake, alert, and oriented x3. No focal neurological deficits noted. Laboratory: Hematology Labs: Test 02/09/24 05:07 Range/Units White Blood Count 8.0 4.8-10.8 K/uL Red Blood Count 3.90 L 4.00-5.50 MIL/uL Hemoglobin 11.0 L 12.0-16.0 g/dL Hematocrit 36.2 36-48 % Mean Corpuscular Volume 92.8 79-99 fL Mean Corpuscular Hemoglobin 28.2 27.0-33.0 pg Mean Corpuscular Hemoglobin Concent 30.4 L 32.0-36.0 g/dL Red Cell Distribution Width 13.8 11.0-15.5 % Platelet Count 207 130-400 K/uL Mean Platelet Volume 9.9 7.5-10.5 fL Immature Granulocyte % (Auto) 0.5 0-1 % Neutrophils (%) (Auto) 44.1 40.0-77.0 % Lymphocytes (%) (Auto) 35.3 21.0-51.0 % Monocytes (%) (Auto) 15.1 H 3.0-13.0 % Eosinophils (%) (Auto) 4.5 0.0-8.0 % Basophils (%) (Auto) 0.5 0.0-5.0 % Neutrophils # (Auto) 3.5 1.8-7.7 K/uL Lymphocytes # (Auto) 2.8 1.0-4.8 K/uL Monocytes # (Auto) 1.2 H 0.1-1.0 K/uL Eosinophils # (Auto) 0.36 0.00-0.70 K/uL Basophils # (Auto) 0.04 0.00-0.20 K/uL Absolute Immature Granulocyte (auto 0.04 0-1 K/uL Nucleated Red Blood Cells 0.0 0.0-0.19 % White Cell Morphology Comment CONSISTENT W/DIFF Chemistry Labs: Test 02/09/24 06:35 02/09/24 05:07 Range/Units Whole Blood Glucose 129 H 70-110 MG/DL Sodium Level 144 136-145 mmol/L Potassium Level 3.3 L 3.5-5.1 mmol/L Chloride Level 104 101-111 mmol/L Carbon Dioxide Level 32 21-32 mmol/L Blood Urea Nitrogen 16 7-18 mg/dL Creatinine 1.2 H 0.5-1.0 mg/dL Glomerular Filtration Rate Calc 51 >90 mL/min Random Glucose 124 H 70-105 mg/dL Total Calcium 9.2 8.5-10.1 mg/dL Diagnostics / Radiology: 2D echocardiogram 02/05/2024: Conclusion LVEF is55-60%. Septal bounce is present. The left ventricular diastolic function is normal. Trace mitral regurgitation. Estiamted pulmonary pressure is within normal range Impression and Plan: Right flank pain with right nephrolithiasis: Status post nephrostomy tube placement 02/08/2024: Continue management per primary team Acute on chronic renal failure with creatinine rising to 2.3 on 02/06/2024 in the setting of increased diuretic therapy: -The patient's creatinine has normalized to 1.2 today -Diuretics currently on hold and we will continue to hold diuretics for another 24 hours and reassess a basic metabolic panel in a.m. Chronic diastolic congestive heart failure Normal LV systolic function with an LVEF of 55-60 % by 2D echocardiogram 02/05/2024 No evidence of pulmonary hypertension on 2D echocardiogram 02/05/2024: -IV diuretics have been discontinued and her furosemide is currently on hold -consider resumption of furosemide perhaps 40 mg p.o. daily in the 24 hours now that her renal function has improved Chronic venous insufficiency/suspect May-Thurner syndrome: -the patient will follow-up with Dr. Will Ribera for reassessment and management as an outpatient -this has been discussed with the patient and although plans were for possible intervention during this admission, with nephrostomy tube in place now Dr. Ribera will defer management to outpatient -will have nursing staff wrapped the lower extremities with Fredy wraps to wear Fredy wraps during the day which can be removed at night Hypertension: It appears the patient was hypotensive early on admission and her metoprolol, diltiazem and losartan have been held -blood pressure stable and we will consider resumption of ARB therapy in the next 24-48 hours -avoid amlodipine and perhaps avoid resumption of diltiazem given significant lower extremity edema -we will reconsider resumption of beta-rich therapy if needed for blood pressure control Comorbidities: History of pulmonary hypertension on continuous O2 therapy as outpatient Obstructive sleep apnea on CPAP therapy Morbid obesity Hypertension Hyperlipidemia Chronic use of outpatient corticosteroids, History of chronic back pain Rheumatoid arthritis History of chronic outpatient use of benzodiazepines PHYSICIAN ATTESTATION OF PHYSICIAN EARTH MOVING TECHNICIAN DOCUMENTATION: I attest that I was physically present for the boone portions of the service and evaluated the patient with the Physician Auto Painter, and I reviewed and discussed the case with the Physician Auto Painter and made modifications to the Physician Auto Painter's findings and plans of care as documented above GRAY CAIN Feb 09, 2024 09:16 ALY LANGFORD MD Feb 10, 2024 13:51
--- NOTE | 2024-02-09 14:12 | PN ---
NEPHROLOGY PROGRESS NOTE Date/Time Patient Seen: Feb 09, 2024 SUBJECTIVE: This is a 63-year-old female with the history of hypertension, rheumatoid arthritis, sleep apnea. She presented to the hospital and found to have obstructive uropathy. She continues to be followed by Cardiology She does have an elevated BUN and creatinine. The patient's creatinine has somewhat stabilized. S/P right nephrostomy tube placement on 02/07. The patient had previously been seen by Urology. Renal function continues to improve Electrolytes are stable Hemoglobin is stable. She continues on antibiotics She was seen in the medical floor, she continues to be lethargic. REVIEW OF SYSTEMS: GENERAL: Negative for any nausea, vomiting, fevers, chills, or weight loss. NEUROLOGIC: Negative for any blurry vision, blind spots, double vision, facial asymmetry, dysphagia, dysarthria, hemiparesis, hemisensory deficits, vertigo, ataxia. HEENT: Negative for any head trauma, neck trauma, neck stiffness, photophobia, phonophobia, sinusitis, rhinitis. CARDIAC: Negative for any chest pain, dyspnea on exertion, paroxysmal nocturnal dyspnea, peripheral edema. PULMONARY: Negative for any shortness of breath, wheezing, COPD, or TB exposure. GASTROINTESTINAL: Negative for any abdominal pain, nausea, vomiting, bright red blood per rectum, melena. GENITOURINARY: Negative for any dysuria, hematuria, incontinence. INTEGUMENTARY: Negative for any rashes, cuts, insect bites. RHEUMATOLOGIC: Negative for any joint pains, photosensitive rashes, history of vasculitis or kidney problems. HEMATOLOGIC: Negative for any abnormal bruising, frequent infections or bleeding. Vital Signs (last 8hr) Date Time Temp Pulse Resp B/P (MAP) Pulse Ox O2 Delivery O2 Flow Rate FiO2 02/09/24 12:00 98.1 116 19 136/78 95 Room Air 02/09/24 08:00 91 Nasal Cannula* 2 28 02/09/24 07:56 98.1 94 18 126/96 91 Room Air PHYSICAL EXAM: GENERAL: Alert and oriented x 3. No acute distress. Well-nourished. EYES: EOMI. Anicteric. HENT: Moist mucous membranes. No scleral icterus. No cervical lymphadenopathy. LUNGS: Clear to auscultation bilaterally. No accessory muscle use. CARDIOVASCULAR: Regular rate and rhythm. No murmur. No JVD. ABDOMEN: Soft, non-tender and non-distended. No palpable masses. EXTREMITIES: No edema. Non-tender. SKIN: No rashes or lesions. Warm. NEUROLOGIC: No focal neurological deficits. CN II-XII grossly intact, but not individually tested. PSYCHIATRIC: Cooperative. Appropriate mood and affect. Current Medications Medications (Trade) Dose Ordered Sig/Ashanti Route PRN Reason Start Time Stop Time Status Last Admin Dose Admin Acetaminophen (TYLenol 325MG TAB) 650 mg Q6H PRN PO MILD PAIN (1-3) 02/04/24 12:30 03/05/24 12:29 Acetazolamide Sodium (DIAmox 500MG INJ) 500 mg DAILY IV 02/04/24 13:30 02/07/24 13:29 DC 02/07/24 13:45 500 MG Albuterol (DUOneb) 1 udvial Q6H PRN IH SHORTNESS OF BREATH 02/04/24 12:30 03/05/24 12:29 Aspirin (Aspirin 81mg Chew Tab) 81 mg Q24H PO 02/04/24 12:30 03/05/24 12:29 02/09/24 11:48 81 MG Atorvastatin Calcium (LIPItor 10MG) 10 mg DAILY PO 02/05/24 09:00 02/08/24 13:21 DC Atorvastatin Calcium (LIPItor 10MG) 10 mg HS PO 02/08/24 21:00 03/06/24 08:59 02/08/24 20:39 10 MG Bumetanide (Bumex 1mg Vial) 1 mg Q8H IVP 02/04/24 13:30 02/06/24 07:07 DC 02/06/24 05:32 1 MG Bupropion HCl (WellBUTrin SR 150MG) 150 mg DAILY PO 02/05/24 09:00 03/06/24 08:59 02/09/24 08:20 150 MG Ceftriaxone Sodium (ROCEphine 1G INJ) 1 gm Q12H IVPB 02/04/24 12:00 02/14/24 11:59 02/09/24 11:48 1 GM Cetirizine HCl (ZYRtec 5 MG TABLET) 10 mg Q24H PO 02/04/24 13:00 03/05/24 12:59 02/09/24 11:47 10 MG Clonazepam (clonazePAM 0.5 mg) 0.5 mg HSPRN PRN PO ANXIETY/AGITATION 02/04/24 15:30 03/05/24 15:29 02/06/24 20:29 0.5 MG Diltiazem HCl (CARDIzem 120MG CD) 120 mg Q24H PO 02/04/24 12:30 02/06/24 07:23 DC 02/05/24 13:11 120 MG Heparin Sodium (Porcine) (HEParin 5,000 UNIT VIAL) 5,000 unit Q8H SQ 02/07/24 22:00 03/08/24 21:59 02/09/24 06:45 5,000 UNIT Hydromorphone HCl (DiLAUDid 1MG INJ) 1 mg Q4H PRN IVP SEVERE PAIN (7-10) 02/06/24 12:30 02/11/24 12:29 02/09/24 11:53 1 MG Insulin Human Regular (humuLIN R 100 UNIT/ML 3ML) INSULIN SLIDING SCAL... ACHS SQ 02/04/24 16:30 03/05/24 16:29 Isosorbide Mononitrate (Imdur 30mg Sr) 30 mg DAILY PO 02/04/24 15:00 02/06/24 07:07 DC 02/05/24 09:29 30 MG Metoprolol Succinate (TopROL XL) 25 mg DAILY PO 02/04/24 15:00 02/06/24 07:23 DC 02/05/24 09:29 25 MG Miscellaneous Medication (Isosorbide Dinitrate ) 1 tab DAILY PO 02/05/24 09:00 02/04/24 17:04 DC Morphine Sulfate (morPHINE 2MG SYG) 2 mg Q6H PRN IVP SEVERE PAIN (7-10) 02/04/24 12:30 02/04/24 12:27 DC Morphine Sulfate (morPHINE 2MG SYG) 2 mg Q6H PRN IVP SEVERE PAIN (7-10) 02/04/24 12:30 02/06/24 12:11 DC 02/06/24 08:38 2 MG Ondansetron HCl (zoFRAN 4MG INJ) 4 mg Q6H PRN IVP NAUSEA/VOMITING 02/04/24 12:30 03/05/24 12:29 02/08/24 18:18 4 MG Pantoprazole Sodium (PROTonix 40MG TAB) 40 mg DAILY PO 02/05/24 09:00 03/06/24 08:59 02/09/24 08:20 40 MG Potassium Chloride 100 ml @ 100 mls/hr AD PRN IV POTASSIUM PROTOCOL 02/04/24 12:30 03/05/24 12:29 02/07/24 04:55 100 MLS/HR Potassium Chloride (K-Dur 10meq Sr Tab) 10 meq AD PRN PO POTASSIUM PROTOCOL 02/04/24 12:30 03/05/24 12:29 02/09/24 10:37 10 MEQ Potassium Chloride (K-Dur/Klor-Con 20meq) 20 meq QID PO 02/07/24 13:00 02/08/24 09:01 DC 02/07/24 20:55 20 MEQ Potassium Chloride (KCl 10% Elixir 20meq/15ml) 10 meq AD PRN PO POTASSIUM PROTOCOL 02/04/24 12:30 03/05/24 12:29 Prednisone (deltaSONE/ ORASONE 10MG) 30 mg Q24H PO 02/04/24 12:30 03/05/24 12:29 02/09/24 11:47 30 MG Pregabalin (LYRica 100MG) 100 mg DAILY PO 02/05/24 09:00 03/06/24 08:59 02/09/24 08:20 100 MG Sodium Chloride 1,000 ml @ 50 mls/hr Q20H IV 02/05/24 10:00 02/07/24 09:20 DC 02/06/24 16:07 50 MLS/HR LABORATORY: [ ] Hematology Labs: Test 02/09/24 05:07 Range/Units White Blood Count 8.0 4.8-10.8 K/uL Red Blood Count 3.90 L 4.00-5.50 MIL/uL Hemoglobin 11.0 L 12.0-16.0 g/dL Hematocrit 36.2 36-48 % Mean Corpuscular Volume 92.8 79-99 fL Mean Corpuscular Hemoglobin 28.2 27.0-33.0 pg Mean Corpuscular Hemoglobin Concent 30.4 L 32.0-36.0 g/dL Red Cell Distribution Width 13.8 11.0-15.5 % Platelet Count 207 130-400 K/uL Mean Platelet Volume 9.9 7.5-10.5 fL Immature Granulocyte % (Auto) 0.5 0-1 % Neutrophils (%) (Auto) 44.1 40.0-77.0 % Lymphocytes (%) (Auto) 35.3 21.0-51.0 % Monocytes (%) (Auto) 15.1 H 3.0-13.0 % Eosinophils (%) (Auto) 4.5 0.0-8.0 % Basophils (%) (Auto) 0.5 0.0-5.0 % Neutrophils # (Auto) 3.5 1.8-7.7 K/uL Lymphocytes # (Auto) 2.8 1.0-4.8 K/uL Monocytes # (Auto) 1.2 H 0.1-1.0 K/uL Eosinophils # (Auto) 0.36 0.00-0.70 K/uL Basophils # (Auto) 0.04 0.00-0.20 K/uL Absolute Immature Granulocyte (auto 0.04 0-1 K/uL Nucleated Red Blood Cells 0.0 0.0-0.19 % White Cell Morphology Comment CONSISTENT W/DIFF Chemistry Labs: Test 02/09/24 11:21 02/09/24 05:07 Range/Units Whole Blood Glucose 127 H 70-110 MG/DL Sodium Level 144 136-145 mmol/L Potassium Level 3.3 L 3.5-5.1 mmol/L Chloride Level 104 101-111 mmol/L Carbon Dioxide Level 32 21-32 mmol/L Blood Urea Nitrogen 16 7-18 mg/dL Creatinine 1.2 H 0.5-1.0 mg/dL Glomerular Filtration Rate Calc 51 >90 mL/min Random Glucose 124 H 70-105 mg/dL Total Calcium 9.2 8.5-10.1 mg/dL DIAGNOSTICS / RADIOLOGY: REASON: Leucocytosis, Tachycardia, rule out pneumonia ORDERING PHYSICIAN: MINERVA TELLEZ MD PROCEDURE: CXR1VW - CHEST 1VW CHEST 1VW REASON: Leucocytosis, Tachycardia, rule out pneumonia COMPARISON: 02/04/2024 FINDINGS: Single view of the chest was obtained. Lungs are clear. Heart size is normal. There is no pulmonary vascular congestion. Mediastinum and bony thorax appear unremarkable. IMPRESSION: 1. Normal single view chest x-ray. DICTATED BY: DIANN RUBY MD DATE: 02/07/24 1057 REASON: R/O hydronephrosis ORDERING PHYSICIAN: HARSHA MEDEROS MD PROCEDURE: RENAL LASX - NM RENOGRAM W/ LASIX NM RENOGRAM W/ LASIX REASON: R/O hydronephrosis COMPARISON: None TECHNIQUE: Routine imaging protocol was performed following injection of 7.3 mCi technetium 99 M MAG3. 40 mg of Lasix was administered IV push 15 minutes into the exam. FINDINGS: Images show prompt the isotope uptake and excretion on the left. Left has a normal-appearing excretion curve is accentuated by Lasix. There is delayed isotope uptake on the right. There is gradually increasing activity curve on the right consistent with a high degree of obstruction, this is not significantly affected by Lasix. The T1 half following Lasix on the left is 12.6 minutes, within normal limits. The T1 half on the right cannot be calculated as the activity curve continues to rise rather than fall. Split function is 74.1% left and 25.9% right IMPRESSION: 1. Delayed nephrogram and absence of excretion on the right consistent with a high-grade obstruction in the right proximal kidney 2. Normal uptake and excretion on the left. DICTATED BY: DIANN RUBY MD DATE: 02/06/24 1636 REASON: r/o right renal hydronephrosis ORDERING PHYSICIAN: HARSHA MEDEROS MD PROCEDURE: RENAL - US RENAL SONOGRAM US RENAL SONOGRAM REASON: r/o right renal hydronephrosis COMPARISON: None TECHNIQUE: Renal and bladder sonogram performed. FINDINGS: Right kidney is 10 x 5.6 x 6.4 cm, left 10.6 x 4.7 x 5.1 cm. There is a 2.6 cm cyst lower pole right kidney and a 3.1 cm cyst upper pole left kidney. There are no focal masses. There is mild hydronephrosis on the right. This is better seen on previous day's CT scan. There is no hydronephrosis on the left. IMPRESSION: 1. Mild right-sided hydronephrosis. 2. Small bilateral cysts. 3. Urinary bladder only partially distended and not well visualized. DICTATED BY: DIANN RUBY MD DATE: 02/06/24 1250 REASON: hx of pulm htn, assess for heart failure, SHC to read ORDERING PHYSICIAN: LOR PATRICIA MD PROCEDURE: ECHO CMP - ECHO 2-D COMPLETE APPROVED REPORT EXAM: Two-dimensional and M-mode echocardiogram with Doppler and color Doppler. INDICATION ICD: pulmonary hypertension Heart Failure 2D Dimensions RVDd 3.7 cm LVEF(%) 63.7 (>50%) LVED Vol(simp.) 80.4 mL IVSd 1.2 (0.7-1.1cm) FS(%) 35 % LVES Vol(simp.) 30.3 mL LVDd 4.9 (3.8-5.6cm) LA (2D) 4.0 (1.6-4.0cm) LVEF(%, simp.) 62 % PWd 1.0 (0.7-1.1cm) Ao Root(2D) 3.1 (2.0-3.7cm) LA ESV INDEX (4CH) 21.70 mL/m2 IVSs 1.6 cm LVOT diam 2.4 (1.8-2.4cm) LA ESV INDEX (2CH) 21.30 mL/m2 LVDs 3.2 (2.5-4.0cm) LA ESV INDEX (BP) 23.70 mL/m2 PWs 1.6 cm Deformation Strain Apical 4 22.0 % Apical 2 24.0 % Apical 3 24.0 % Global Strain 23.0 % M-Mode Dimensions EPSS 0.6 cm LA (MM) 3.6 (1.6-4.0cm) Ao Root(MM) 3.6 (2.0-3.7cm) Aortic Valve AoV VTI 0.3 m Ao Mean GR 5.0 mmHg LVOT VTI 0.25 m CHRISTOPHER (VMAX) 3.5 cm2 CHRISTOPHER (VTI) 3.5 cm2 Mitral Valve MV E Vmax 94.6 cm/s DECEL Time 229 ms MV A Vmax 59.7 cm/s P 1/2 T 87 ms E/A ratio 1.6 MVA (PHT) 2.5 cm2 MR Max PG 51 mmHg TDI E/E' Medial 12.0 E/E' Lateral 9.8 Medial E' Peak V 7.90 cm/s Lateral E' Peak V 9.70 cm/s Pulmonary Valve PV Vmax 1.0 m/s PV Peak GR 4.1 mmHg Left Ventricle The left ventricle is normal size. GLS -23%. There is normal left ventricular wall thickness. Septal bounce is present. LVEF is55-60%. The left ventricular diastolic function is normal. Right Ventricle The right ventricle is normal size. The right ventricular systolic function is normal. Atria The left atrium size is normal. The right atrium size is normal. Aortic Valve The aortic valve is normal in structure. No aortic regurgitation is present. There is no aortic valvular stenosis. Mitral Valve The mitral valve is normal in structure. Trace mitral regurgitation. There is no mitral valve stenosis. Tricuspid Valve The tricuspid valve is normal in structure. There is no tricuspid valve regurgitation noted. Pulmonic Valve The pulmonary valve is normal in structure. There is no pulmonic valvular regurgitation. Great Vessels The aortic root is normal in size. The IVC is dilated and collapses >50% with inspiration. Pericardium There is no pericardial effusion. Other Information Quality : Good Rhythm : NSR Conclusion LVEF is55-60%. Septal bounce is present. The left ventricular diastolic function is normal. Trace mitral regurgitation. Estiamted pulmonary pressure is within normal range DICTATED BY: ANA WALKER DO DATE: 02/05/24 0742 REASON: Bilateral flank pain, Nephrolithiasis ORDERING PHYSICIAN: MINERVA TELLEZ MD PROCEDURE: ABD PEL WO - CT ABDOMEN/PELVIS W/O CONTRAST CT ABDOMEN/PELVIS W/O CONTRAST REASON: Bilateral flank pain, Nephrolithiasis COMPARISON: 02/21/2024 FINDINGS: Lung bases are clear. There are no focal liver lesions. The liver is not enlarged.. Spleen and pancreas appear unremarkable. There has been a previous cholecystectomy. There is mild to moderate right hydronephrosis. There is a 6 mm stone in the proximal right ureter at the level of the lower pole of the right kidney. There is an additional 2 mm nonobstructing stone in an upper pole calyx on the right and there are several very small stones lower pole calyx on the right as well. Left kidney appears unremarkable with the exception of a small cyst upper pole. Bowel loops appear unremarkable. This includes normal appearance of the appendix There is no evidence of free fluid or intraperitoneal air. There are no focal fluid collections. Aorta and retroperitoneum appear normal as do pelvic soft tissue structures. The anterior abdominal wall is intact. Osseous structures appear unremarkable. IMPRESSION: 1. 6 mm right ureteral stone at the level of the lower pole right kidney, there is mild to moderate right hydronephrosis. 2. There are several additional very small nonobstructing stones in the right kidney, there are small bilateral cysts as well. 3. Absent gallbladder. CT was performed with one or more following dose reduction techniques: automated exposure control, adjustment of the mA and kv according to patient's size, or use of a iterative reconstruction technique. DICTATED BY: DIANN RUBY MD DATE: 02/05/24 1239 REASON: please assess for infltrates ORDERING PHYSICIAN: LOR PATRICIA MD PROCEDURE: CXR1VW - CHEST 1VW CHEST 1VW REASON: please assess for infltrates COMPARISON: 05/05/2021 FINDINGS: Single view of the chest was obtained. Lungs are clear. Heart size is normal. There is no pulmonary vascular congestion. Mediastinum and bony thorax appear unremarkable. IMPRESSION: 1. Normal single view chest x-ray. DICTATED BY: DIANN RUBY MD DATE: 02/04/24 1247 REASON: significant bilateral lower extremity edema ORDERING PHYSICIAN: LOR PATRICIA MD PROCEDURE: VENOUS PAULETTE - US VENOUS DOPPLER BILATERAL US VENOUS DOPPLER BILATERAL REASON: significant bilateral lower extremity edema COMPARISON: None Technique: Bilateral venous doppler ultrasound was performed with spectral analysis and color flow imaging technique. FINDINGS: There is a normal appearance of the common femoral, deep femoral, the profunda femoris and popliteal veins. Proximal calf veins appear normal as well. There is normal response to compression and augmentation. There is no evidence of deep venous thrombosis. IMPRESSION: Normal bilateral lower extremity venous Doppler ultrasound. DICTATED BY: DIANN RUBY MD DATE: 02/04/24 1448 REASON: bilateral flank pain ORDERING PHYSICIAN: RENATA DE ANDA MD PROCEDURE: RENAL - US RENAL SONOGRAM US RENAL SONOGRAM REASON: bilateral flank pain COMPARISON: None TECHNIQUE: Renal and bladder sonogram was performed. FINDINGS: Right kidney is 10.8 x 6.3 x 6.6 cm, left 11.9 x 5.6 x 6.3 cm. There is moderate bilateral renal cortical thinning. There is a 1 cm stone in the right kidney, nonobstructing. There is a 2.6 cm cyst right kidney and a 3.6 cm cyst left kidney. Urinary bladder is only partially distended. Urinary bladder wall appears mildly thickened but this is inconclusive in the a urinary bladder which is not completely distended. IMPRESSION: 1. Mild bilateral renal cortical thinning. It 2. Small cysts, one on each kidney, there is also a nonobstructing 1 cm stone right kidney. 3. No evidence of mass or hydronephrosis. 4. Urinary bladder only partially distended and not well visualized. DICTATED BY: DIANN RUBY MD DATE: 02/04/24 1102 ASSESSMENT: Acute renal failure Persistent right renal nephrolithiasis Nonresolving bilateral flank pain Hypernatremia Hypokalemia Ruled out acute heart failure exacerbation Underlying history of pulmonary hypertension on continuous O2 therapy as outpatient MARIA TERESA Morbid obesity Hypertension Hyperlipidemia Chronic use of outpatient corticosteroids History of chronic back pain Rheumatoid arthritis History of chronic outpatient use of benzodiazepines PLAN: Labs, diagnostic, radiologic exams reviewed and interpreted by myself and supervising physician. We have reviewed external records in detail Nephrostomy tube as per Urology Continue with Cardiology recommendations There is no need for renal replacement therapy at this time. Require close monitoring of renal function and electrolytes Order CBC, CMP, and electrolytes in am Continue with antibiotics Renal diabetic diet BiPAP as necessary, for respiratory distress Monitor blood pressure adjust medication doses as needed Avoid hypotensive episodes May use Dilaudid 0.5 mg IV every 6 hours as needed for severe pain Monitor blood sugars Strict intake, output, and daily weight should be monitored Please renally adjust medications Avoid nephrotoxic and nonsteroidal drugs Avoid contrast if possible Will continue to monitor renal function, anemia, electrolytes Treatment plan discussed with patient Questions were answered We have discussed with the other team physicians in detail about the care plan We will continue to monitor the patient closely ATTESTATION BY PHYSICIAN I have seen and examined the patient. I reviewed the documentation, medical de cision making, and treatment plan as noted by the mid-level provider above. I agree with the findings and plan of care. HELEN BOYD MD, [facility] Feb 09, 2024 14:12
--- NOTE | 2024-02-09 14:26 | PN ---
[facility] PROGRESS NOTE Date of Service: Feb 09, 2024 Time of Service: 14:25 Patient was seen and examined. Case discussed with the. She had undergone nephrostomy tube placement in the bag is draining clean blood-tinged fluid. Still has pain but the which has improved. She overall feels better SUBJECTIVE:- The patient is a 63-year-old female with a past medical history of hypertension, type 2 diabetes mellitus, pulmonary hypertension on continuous O2 at home, congestive heart failure, morbid obesity with BMI 48.4 kg/m2, obstructive sleep apnea uses CPAP at home, rheumatoid arthritis on chronic steroids and Humira injections, chronic back pain presented to emergency department at [facility] yesterday for the evaluation of the bilateral flank pain of the past 2 weeks. She had an ER visit on 01/20 with the similar complaints were CT abdomen and pelvis without contrast was done which showed 6 mm stone in the proximal right ureter with no hydronephrosis. She was treated with hydrocodone and Flomax and was told to follow urologist outpatient. She did not follow the urologist and continues to have a persistent pain along with a cloudy appearance of urine. * She follows Dr. Ribera cardiology as outpatient for CHF, and due to bilateral lower extremity edema, he increase the dose of Lasix to 40 mg b.i.d. * She was recently diagnosed with pulmonary hypertension and following Dr. Carrillo and has been on oxygen therapy at home. She reported 40 lb weight gain over last several months and reports having significant bilateral lower extremity edema. * She also sees a dinkey engine firer for rheumatoid arthritis and has been on chronic steroids with prednisone 30 mg daily and Humira injections. On presentation, significant labs for sodium of 147, potassium 3.2, creatinine 1.6, BNP normal of 16. Creatinine on 01/20 was 1.1. Renal ultrasound showed small cyst, once on each kidney and nonobstructive 1 cm stone in the right kidney, no evidence of mass or hydronephrosis. Urinalysis showed cloudy appearance, trace occult blood, small leukocyte esterase, RBCs 6-10, WBC 2-5, urine squamous epithelial cells moderate and few uric acid crystals. Venous Doppler for negative for any evidences of thrombosis. Cardiology consult was made due to underlying heart failure and pulmonary hypertension, urology and nephrology consult was made due to persistent nephrolithiasis. She was admitted for the management of ANDREA on CKD, concern for volume overload, persistent right nephrolithiasis developing UTI. 02/05/24- The patient was examined today, with family at bedside. She is lying on the bed, does not seem to be in distress, however is complaining about the pelvic pain. Her vitals have been nonsignificant except slightly tachypneic respiratory rate from 22-24. She has been on 2 L of nasal cannula * Per Cardiology note, the patient has a mild hypertension and the recommendations were made to continue diltiazem. For chronic diastolic heart failure continue IV diuretics. She also has a bilateral lower extremity edema suspected to be May-Thurner syndrome. * Per Urology note, the patient needs a right nephrostomy tube replacement. The procedure was supposed to happened last night after CT scan however the patient did not go for CT scan yesterday because she feels claustrophobic and needs anxiolytics before the procedure which she did not receive yesterday. No follow up was done, CT scan was canceled however and was done today * Per nephrology, she was started with 100 cc/hour IV fluids, and need further workup for possible iron-deficiency anemia. Labs: Sodium 146, potassium 3.4, carbon dioxide 38, BUN 26, creatinine went up to 1.7 from 1.6, GFR 34, normal liver enzymes, albumin 3.0. Assessment and plan discussed below. 02/06/24- The patient was examined today, with family on the bedside. She has been on morphine, however complaining of still excruciating pain, 8/10 at present. The patient was supposed to go for right nephrostomy tube placement however per Dr. Arevalo and the radiologist conversations, she will be first going for IVP with diuresis to evaluate the intensity or severity of hydronephrosis. Based on that, nephrostomy tube placement decision will be made. Labs: Sodium 145, potassium 3.2, BUN went up to 36 from 6, creatinine went up to 2.3 From 1.7, GFR went down to 23 from 34. Due to worsening of renal functions, the restaurant host/hostess discontinued Bumex. Also Dr. Ribera does not think the patient should be on isosorbide dinitrate, metoprolol. She has mild pulmonary hypertension and he also does not think diltiazem is the first-line medication without underlying AFib. He thinks causes of bilateral edema is due to May-Thurner syndrome which can be managed inpatient or outpatient after improvement in renal functions. Recommendations will be followed. Further assessment and plan discussed below. 02/07/24: The patient was examined today, with the family on the bedside. She has been on Dilaudid 1 mg Q4 since yesterday. Pain is somewhat manageable with the Dilaudid. IVP with Lasix study yesterday showed absence of excretion on the right consistent with a high-grade obstruction in the right proximal kidney with normal uptake and excretion on the left. She denies any shortness of breath, chest pain, difficulty in urination or any other symptoms. She remains afebrile, however had few episodes of tachycardia in the blood pressure is running on the softer side with SBP is in 100 and diastolic in 70s she has been on and off to the nasal cannula. She has 3+ bilateral pitting edema. Labs: WBCs went up to 13.2 From 10.1, sodium 141, potassium went down to 3.0 from 3.2, chloride 98, BUN went down to 34 from 36, went up to 2.4 From 2.3. We will give 40 mg IV Lasix today. She is going for the nephrostomy tube placement around 3:00 p.m. today. Further assessment and plan discussed below. 02/08/24: The patient was sent for nephrostomy tube placement during the visit. Family was available in the room. Updates were collected from the nurse. She has been in excruciating pain requiring Dilaudid Q4. Pain is somewhat manageable with it. Despite of no vomiting or diarrheal episodes, patient's potassium has remained low. We will monitor K and replace per protocol. Kidney functions are improving. She has been on and off the nasal cannula and using CPAP at night. Labs: Potassium went down to 2.9 from 3.0, BUN went down to 26 from 34, Creatinine went down to 1.5 from 2.4, GFR 39, Hemoglobin 10.5. Evaluate the patient post nephrostomy tube insertion. Further assessment and plan as discussed below REVIEW OF SYSTEMS CONSTITUTIONAL: Denies fevers, chills, or night sweats. No unintentional weight loss reported. NEUROLOGICAL: Denies headache, amaurosis fugax, motor weakness, sensory deficit, vertigo/spinning sensation, gait abnormalities, or tremors. ENT: No hearing loss, otalgia, otorrhea, rhinitis, rhinorrhea, hoarseness, or sore throat. CARDIOVASCULAR: Lower extremity edema, PULMONARY: Denies any shortness of breath, cough, phlegm/sputum, hemoptysis, pleuritic chest pain. SLEEP: Denies morning headaches, daytime somnolence or napping. Denies difficulty falling asleep, staying asleep, waking from sleep. Denies knowledge of snoring. GASTROINTESTINAL: Nausea GENITOURINARY: Persistent Flank pain with dysuria ENDOCRINOLOGIC: Denies polyuria, polydipsia, polyphagia or heat/cold intolerances. HEMATOLOGIC: Denies thrombophilia/previous clots, or coagulopathy/bleeding disorders. ONCOLOGIC: Denies personal history of malignancy. DERMATOLOGIC: Denies rashes or pruritus. PSYCHIATRIC: Denies any suicidal or homicidal ideation. Denies hallucinations. PHYSICAL EXAM GENERAL APPEARANCE: The patient is awake, but appears sleepy, patient recently received IM dose of Benadryl, patient is obese NEUROLOGICAL: Cranial nerves II-XII grossly intact. Motor is 5/5 in bilateral upper and lower extremities proximal to distal. No sensory deficits. HEENT: Face is symmetric. Pupils are equal and reactive. Extraocular movements are intact. NECK: Supple. No JVD. No thyromegaly. No submental, submandibular, pre- /postauricular, occipital or supraclavicular lymphadenopathy. CHEST: Normal chest expansion. No Telemetry. LUNGS: minimal crackles noted at bilateral lung bases CARDIOVASCULAR: Regular. S1 and S2 normal. No appreciable rubs, murmurs or gallops. ABDOMEN: Soft, nontender, and nondistended. There is no rebound, voluntary guarding, or rigidity. : Deferred. No Schuler. EXTREMITIES: Legs are swollen with 3+ pitting edema bilaterally SKIN: No skin breakdown. Vital Signs (last 8hr) Date Time Temp Pulse Resp B/P (MAP) Pulse Ox O2 Delivery O2 Flow Rate FiO2 02/09/24 14:19 91 Nasal Cannula* 2 02/09/24 12:00 98.1 116 19 136/78 95 Room Air 02/09/24 08:00 91 Nasal Cannula* 2 02/09/24 07:56 98.1 94 18 126/96 91 Room Air LABS: Laboratory: Test 02/09/24 11:21 02/09/24 05:07 Range/Units Whole Blood Glucose 127 H 70-110 MG/DL White Blood Count 8.0 4.8-10.8 K/uL Red Blood Count 3.90 L 4.00-5.50 MIL/uL Hemoglobin 11.0 L 12.0-16.0 g/dL Hematocrit 36.2 36-48 % Mean Corpuscular Volume 92.8 79-99 fL Mean Corpuscular Hemoglobin 28.2 27.0-33.0 pg Mean Corpuscular Hemoglobin Concent 30.4 L 32.0-36.0 g/dL Red Cell Distribution Width 13.8 11.0-15.5 % Platelet Count 207 130-400 K/uL Mean Platelet Volume 9.9 7.5-10.5 fL Immature Granulocyte % (Auto) 0.5 0-1 % Neutrophils (%) (Auto) 44.1 40.0-77.0 % Lymphocytes (%) (Auto) 35.3 21.0-51.0 % Monocytes (%) (Auto) 15.1 H 3.0-13.0 % Eosinophils (%) (Auto) 4.5 0.0-8.0 % Basophils (%) (Auto) 0.5 0.0-5.0 % Neutrophils # (Auto) 3.5 1.8-7.7 K/uL Lymphocytes # (Auto) 2.8 1.0-4.8 K/uL Monocytes # (Auto) 1.2 H 0.1-1.0 K/uL Eosinophils # (Auto) 0.36 0.00-0.70 K/uL Basophils # (Auto) 0.04 0.00-0.20 K/uL Absolute Immature Granulocyte (auto 0.04 0-1 K/uL Nucleated Red Blood Cells 0.0 0.0-0.19 % White Cell Morphology Comment CONSISTENT W/DIFF Sodium Level 144 136-145 mmol/L Potassium Level 3.3 L 3.5-5.1 mmol/L Chloride Level 104 101-111 mmol/L Carbon Dioxide Level 32 21-32 mmol/L Blood Urea Nitrogen 16 7-18 mg/dL Creatinine 1.2 H 0.5-1.0 mg/dL Glomerular Filtration Rate Calc 51 >90 mL/min Random Glucose 124 H 70-105 mg/dL Total Calcium 9.2 8.5-10.1 mg/dL Current Medications Medications (Trade) Dose Ordered Sig/Ashanti Route PRN Reason Start Time Stop Time Status Last Admin Dose Admin Acetaminophen (TYLenol 325MG TAB) 650 mg Q6H PRN PO MILD PAIN (1-3) 02/04/24 12:30 03/05/24 12:29 Acetazolamide Sodium (DIAmox 500MG INJ) 500 mg DAILY IV 02/04/24 13:30 02/07/24 13:29 DC 02/07/24 13:45 500 MG Albuterol (DUOneb) 1 udvial Q6H PRN IH SHORTNESS OF BREATH 02/04/24 12:30 03/05/24 12:29 Aspirin (Aspirin 81mg Chew Tab) 81 mg Q24H PO 02/04/24 12:30 03/05/24 12:29 02/09/24 11:48 81 MG Atorvastatin Calcium (LIPItor 10MG) 10 mg DAILY PO 02/05/24 09:00 02/08/24 13:21 DC Atorvastatin Calcium (LIPItor 10MG) 10 mg HS PO 02/08/24 21:00 03/06/24 08:59 02/08/24 20:39 10 MG Bumetanide (Bumex 1mg Vial) 1 mg Q8H IVP 02/04/24 13:30 02/06/24 07:07 DC 02/06/24 05:32 1 MG Bupropion HCl (WellBUTrin SR 150MG) 150 mg DAILY PO 02/05/24 09:00 03/06/24 08:59 02/09/24 08:20 150 MG Ceftriaxone Sodium (ROCEphine 1G INJ) 1 gm Q12H IVPB 02/04/24 12:00 02/14/24 11:59 02/09/24 11:48 1 GM Cetirizine HCl (ZYRtec 5 MG TABLET) 10 mg Q24H PO 02/04/24 13:00 03/05/24 12:59 02/09/24 11:47 10 MG Clonazepam (clonazePAM 0.5 mg) 0.5 mg HSPRN PRN PO ANXIETY/AGITATION 02/04/24 15:30 03/05/24 15:29 02/06/24 20:29 0.5 MG Diltiazem HCl (CARDIzem 120MG CD) 120 mg Q24H PO 02/04/24 12:30 02/06/24 07:23 DC 02/05/24 13:11 120 MG Heparin Sodium (Porcine) (HEParin 5,000 UNIT VIAL) 5,000 unit Q8H SQ 02/07/24 22:00 03/08/24 21:59 02/09/24 14:08 5,000 UNIT Hydromorphone HCl (DiLAUDid 1MG INJ) 1 mg Q4H PRN IVP SEVERE PAIN (7-10) 02/06/24 12:30 02/11/24 12:29 02/09/24 11:53 1 MG Insulin Human Regular (humuLIN R 100 UNIT/ML 3ML) INSULIN SLIDING SCAL... ACHS SQ 02/04/24 16:30 03/05/24 16:29 Isosorbide Mononitrate (Imdur 30mg Sr) 30 mg DAILY PO 02/04/24 15:00 02/06/24 07:07 DC 02/05/24 09:29 30 MG Metoprolol Succinate (TopROL XL) 25 mg DAILY PO 02/04/24 15:00 02/06/24 07:23 DC 02/05/24 09:29 25 MG Miscellaneous Medication (Isosorbide Dinitrate ) 1 tab DAILY PO 02/05/24 09:00 02/04/24 17:04 DC Morphine Sulfate (morPHINE 2MG SYG) 2 mg Q6H PRN IVP SEVERE PAIN (7-10) 02/04/24 12:30 02/04/24 12:27 DC Morphine Sulfate (morPHINE 2MG SYG) 2 mg Q6H PRN IVP SEVERE PAIN (7-10) 02/04/24 12:30 02/06/24 12:11 DC 02/06/24 08:38 2 MG Ondansetron HCl (zoFRAN 4MG INJ) 4 mg Q6H PRN IVP NAUSEA/VOMITING 02/04/24 12:30 03/05/24 12:29 02/08/24 18:18 4 MG Pantoprazole Sodium (PROTonix 40MG TAB) 40 mg DAILY PO 02/05/24 09:00 03/06/24 08:59 02/09/24 08:20 40 MG Potassium Chloride 100 ml @ 100 mls/hr AD PRN IV POTASSIUM PROTOCOL 02/04/24 12:30 03/05/24 12:29 02/07/24 04:55 100 MLS/HR Potassium Chloride (K-Dur 10meq Sr Tab) 10 meq AD PRN PO POTASSIUM PROTOCOL 02/04/24 12:30 03/05/24 12:29 02/09/24 10:37 10 MEQ Potassium Chloride (K-Dur/Klor-Con 20meq) 20 meq QID PO 02/07/24 13:00 02/08/24 09:01 DC 02/07/24 20:55 20 MEQ Potassium Chloride (KCl 10% Elixir 20meq/15ml) 10 meq AD PRN PO POTASSIUM PROTOCOL 02/04/24 12:30 03/05/24 12:29 Prednisone (deltaSONE/ ORASONE 10MG) 30 mg Q24H PO 02/04/24 12:30 03/05/24 12:29 02/09/24 11:47 30 MG Pregabalin (LYRica 100MG) 100 mg DAILY PO 02/05/24 09:00 03/06/24 08:59 02/09/24 08:20 100 MG Sodium Chloride 1,000 ml @ 50 mls/hr Q20H IV 02/05/24 10:00 02/07/24 09:20 DC 02/06/24 16:07 50 MLS/HR DIAGNOSTICS / RADIOLOGY: [ ] ASSESSMENT: ANDREA on CKD, POA Developing urinary tract infection, POA Persistent right renal nephrolithiasis, POA Nonresolving bilateral flank pain, POA Hypernatremia, POA Hypokalemia, POA Ruled out acute heart failure exacerbation, POA Underlying history of pulmonary hypertension on continuous O2 therapy as outpatient, POA MARIA TERESA, POA Morbid obesity with BMI 48.4 kg/m2, POA Hypertension, POA Hyperlipidemia, POA Chronic use of outpatient corticosteroids, POA History of chronic back pain, POA Rheumatoid arthritis, POA Possible May-Thurner Syndrome History of chronic outpatient use of benzodiazepines, POA PLAN:- The Patient remains admitted on the medical surgical floor. ANDREA on CKD, POA Developing urinary tract infection, POA Persistent right renal nephrolithiasis, POA Nonresolving bilateral flank pain, POA * Hold IV fluids, diuretics due to worsening of the kidney functions and bilateral 3+ pitting edema. * Restrict oral fluid intake to 1.5 L a day. * Continue with Dilaudid 1 mg q.4 for severe pain. Re-evaluate the pain severity tomorrow. * s/p post nephrostomy tube insertion. Ruled out acute heart failure exacerbation, POA Peripheral edema, POA * Continue with acetazolamide 500 mg IV daily for 3 days * Discontinue with Bumex 1 mg IV every 8 hours given worsening of renal functions. * Discontinue home medications of metoprolol succinate 25 mg daily * Hold home medication losartan due to ANDREA Pulmonary hypertension * Continue with supplemental O2 therapy to maintain oxygen saturation greater than 92% Obstructive sleep apnea Morbid obesity, BMI 48.4 kg per m2 * Continue with CPAP at night for breathing support Rheumatoid arthritis * Continue with prednisone 30 mg daily Possible May-Thurner Syndrome * The patient will be needing of DAPT after the diagnosis of May-Thurner syndrome. Per Community Integration Specialist, the patient needs to recover from ANDREA and Nephrostomy tube placement. Management of May- Thurner will be done as an outpatient by the restaurant host/hostess 2-4 weeks post discharge. * Home medications were reconciled and resumed * P.r.n. medications for nausea, pain * Continue with insulin sliding scale for hyperglycemia * Continue with the atorvastatin 10 mg, aspirin 81 mg * Replace electrolytes per protocol * Heparin 5000 IU Q8 for DVT prophylaxis. * Incentive Spirometry to help with breathing * AM labs: CBC, BMP JOY GARCIA MD Feb 09, 2024 14:26
--- NOTE | 2024-02-09 16:21 | NUR ---
CM NOTE: POC CM RECEIVED TRIGGER RE: IS INCAPACITATED TO TAKE CARE OF PT AT HOME. PT PENDING PT EVAL, ON ROCEPHIN IV. CM SPOKE TO DR Amari TELLEZ, INFORMED MD PT WILL NEED SKILLED NEED IN ORDER TO GO TO SNF, PER MD PT WILL NEED BE NEEDING IV ABX FOR RECURRENT UTI, PLANS TO HAVE PO ABX ONLY, MD MADE AWARE DCP HOME, PT TO F/U W/PCP FOR POSSIBLE HH AND PT AT HOME, WILL INFORM JAJA W/DAD REGARDING POSSIBLE PROVIDER NEED AT HOME. DCP HOME ONCE STABLE. CM INFORMED JAJA Forman/DEPT AGING REGARDING PROVIDER ASSISTANCE NEED AT HOME VIA SECURE EMAIL, REP TO COORDINATE W/PT AND AT HOME. CM TO CONTINUE TO FOLLOW UP.
[2024-02-10] VITALS (7 sets, daily range): BP systolic 116–145; BP diastolic 69–92; PULSE 80–109; RESP 16–20; TEMP 97.6–98.2; O2SAT 90–99
[2024-02-10 05:18] LABS: MEAN CORPUSCULAR HEMOGLOBIN 27.5 pg (27.0-33.0); MEAN CORPUSCULAR HGB CONC 29.7 g/dL (32.0-36.0); MEAN CORPUSCULAR VOLUME 92.6 fL (79-99); RED BLOOD CELL COUNT(AUTO) 3.67 MIL/uL (4.00-5.50); RED CELL DISTRIBUTION WIDTH 13.5 % (11.0-15.5); WHITE BLOOD COUNT (AUTO) 6.9 K/uL (4.8-10.8)
[2024-02-10 06:04] LABS: ALBUMIN 2.6 g/dL (3.5-5.0); BILIRUBIN,TOTAL 0.3 mg/dL (0.2-1.0); CREATININE 1.1 mg/dL (0.5-1.0); MAGNESIUM 1.6 mg/dL (1.80-2.40); PHOSPHORUS 2.6 mg/dL (2.5-4.9); POTASSIUM 3.5 mmol/L (3.5-5.1); TOTAL PROTEIN, SERUM 5.9 g/dL (6.0-8.3)
--- NOTE | 2024-02-10 08:40 | PN ---
[facility] CARDIOLOGY PROGRESS NOTE Date Patient Seen: Feb 10, 2024 Time of Visit: 08:36 Interval History: This is a 63-year-old white female with a past medical history of hypertension, type 2 diabetes mellitus, pulmonary hypertension on continuous O2 at home, chronic diastolic congestive heart failure, morbid obesity with BMI 48.4 kg/m2, obstructive sleep apnea on chronic CPAP, rheumatoid arthritis on chronic steroids and Humira injections, chronic back pain who was admitted for intractable bilateral flank pain right greater than left. She was found to have nephrolithiasis and ultimately has undergone placement of a nephrostomy tube on 02/08/2024. Cardiology has been following due to concern for acute on chronic diastolic congestive heart failure and pulmonary hypertension. The patient developed acute kidney injury likely related to diuretic therapy early on in this admission with creatinine rising to 2.3 on 02/06/2024. She had been receiving IV diuretics. She was evaluated by Dr. Will Ribera who felt there was no evidence of acute diastolic heart failure decompensation and her diuretics were held. She was also taking furosemide 40 mg p.o. b.i.d. prior to admission given her chronic lower extremity edema. It is felt that her lower extremity edema has been multifactorial including related to venous insufficiency and possible May-Thurner syndrome, morbid obesity and limited mobility/sedentary lifestyle. There was no evidence of pulmonary hypertension on her 2D echocardiogram on 02/05/2024 and she had normal LV systolic function. This morning, her creatinine is 1.1. Her losartan has been on hold and recommendations from Dr. Ribera were to DC the metoprolol and diltiazem ER. She offers no cardiac complaints of orthopnea, PND, palpitations or chest pain. Physical Examination: GENERAL: Morbidly obese female, sitting at the edge of the bed, No acute distress. HEAD: Normal with no signs of head trauma. EYES: PERRLA, EOMI, conjunctiva and sclera normal. NECK: Supple without JVD. There is no tenderness, lymphadenopathy, or masses. No thyromegaly. Normal carotid upstrokes without bruits. LUNGS: Clear breath sounds bilaterally. No wheezes, or rhonchi. HEART: Normal rate and rhythm. Normal S1 and S2 without murmurs, gallop or rub. VASC: Peripheral pulses difficult to palpate given significant lower extremity edema. EXT: No clubbing or cyanosis. There is 3+ pitting edema with weeping lesions to the left lower extremity, with edema to the bilateral lower extremities. NEURO: Awake, alert, and oriented x3. No focal neurological deficits noted. Laboratory: Hematology Labs: Test 02/10/24 05:03 02/09/24 05:07 Range/Units White Blood Count 6.9 4.8-10.8 K/uL Red Blood Count 3.67 L 4.00-5.50 MIL/uL Hemoglobin 10.1 L 12.0-16.0 g/dL Hematocrit 34.0 L 36-48 % Mean Corpuscular Volume 92.6 79-99 fL Mean Corpuscular Hemoglobin 27.5 27.0-33.0 pg Mean Corpuscular Hemoglobin Concent 29.7 L 32.0-36.0 g/dL Red Cell Distribution Width 13.5 11.0-15.5 % Platelet Count 230 130-400 K/uL Mean Platelet Volume 10.0 7.5-10.5 fL Nucleated Red Blood Cells 0.0 0.0-0.19 % Immature Granulocyte % (Auto) 0.5 0-1 % Neutrophils (%) (Auto) 44.1 40.0-77.0 % Lymphocytes (%) (Auto) 35.3 21.0-51.0 % Monocytes (%) (Auto) 15.1 H 3.0-13.0 % Eosinophils (%) (Auto) 4.5 0.0-8.0 % Basophils (%) (Auto) 0.5 0.0-5.0 % Neutrophils # (Auto) 3.5 1.8-7.7 K/uL Lymphocytes # (Auto) 2.8 1.0-4.8 K/uL Monocytes # (Auto) 1.2 H 0.1-1.0 K/uL Eosinophils # (Auto) 0.36 0.00-0.70 K/uL Basophils # (Auto) 0.04 0.00-0.20 K/uL Absolute Immature Granulocyte (auto 0.04 0-1 K/uL White Cell Morphology Comment CONSISTENT W/DIFF Chemistry Labs: Test 02/10/24 06:08 02/10/24 05:03 Range/Units Whole Blood Glucose 128 H 70-110 MG/DL Sodium Level 143 136-145 mmol/L Potassium Level 3.5 3.5-5.1 mmol/L Chloride Level 104 101-111 mmol/L Carbon Dioxide Level 34 H 21-32 mmol/L Blood Urea Nitrogen 17 7-18 mg/dL Creatinine 1.1 H 0.5-1.0 mg/dL Glomerular Filtration Rate Calc 57 >90 mL/min Random Glucose 132 H 70-105 mg/dL Total Calcium 8.9 8.5-10.1 mg/dL Phosphorus Level 2.6 2.5-4.9 mg/dL Magnesium Level 1.60 L 1.80-2.40 mg/dL Total Bilirubin 0.3 0.2-1.0 mg/dL Aspartate Amino Transf (AST/SGOT) 18 10-37 U/L Alanine Aminotransferase (ALT/SGPT) 36 12-78 U/L Alkaline Phosphatase 69 50-136 U/L Total Protein 5.9 L 6.0-8.3 g/dL Albumin 2.6 L 3.5-5.0 g/dL Diagnostics / Radiology: 2D echocardiogram 02/05/2024: Conclusion LVEF is55-60%. Septal bounce is present. The left ventricular diastolic function is normal. Trace mitral regurgitation. Estimated pulmonary pressure is within normal range Impression and Plan: Right flank pain with right nephrolithiasis: Status post nephrostomy tube placement 02/08/2024: Continue management per primary team Acute on chronic renal failure with creatinine rising to 2.3 on 02/06/2024 in the setting of increased diuretic therapy: -The patient's creatinine has normalized to 1.1 today Chronic diastolic congestive heart failure Normal LV systolic function with an LVEF of 55-60 % by 2D echocardiogram 02/05/2024 No evidence of pulmonary hypertension on 2D echocardiogram 02/05/2024: -resume furosemide 40 mg p.o. daily Chronic venous insufficiency/suspect May-Thurner syndrome: -the patient will follow-up with Dr. Will Ribera for reassessment and management as an outpatient -this has been discussed with the patient and although plans were for possible intervention during this admission, with nephrostomy tube in place now Dr. Ribera will defer management to outpatient -will have nursing staff wrapped the lower extremities with Fredy wraps to wear Fredy wraps during the day which can be removed at night Hypertension: It appears the patient was hypotensive early on admission and her metoprolol, diltiazem and losartan have been held -blood pressure has started to trend up into the 140 and 150 systolic range. -resume losartan 50 mg p.o. daily which can be advanced further to 100 mg p.o. if needed for added blood pressure control and 24-48 hours -avoid amlodipine and avoid resumption of diltiazem which may contribute to her significant lower extremity edema -can reconsider resumption of beta-rich therapy if needed for blood pressure control Comorbidities: History of pulmonary hypertension on continuous O2 therapy as outpatient Obstructive sleep apnea on CPAP therapy Morbid obesity Hypertension Hyperlipidemia Chronic use of outpatient corticosteroids, History of chronic back pain Rheumatoid arthritis History of chronic outpatient use of benzodiazepines Cardiology will sign off and re-evaluate upon request Follow-up as per Dr. Ribera in 1-2 weeks as an outpatient for continued management of her venous insufficiency/May-Thurner syndrome Continue with Fredy wraps/compression stockings to the lower extremities throughout the day which can be removed nocturnally PHYSICIAN ATTESTATION OF PHYSICIAN CRIPPLE CHASER DOCUMENTATION: I attest that I was physically present for the boone portions of the service and evaluated the patient with the Physician Block Cutter, and I reviewed and discussed the case with the Physician Block Cutter and made modifications to the Physician Block Cutter's findings and plans of care as documented above GRAY CAIN Feb 10, 2024 08:40 ALY LANGFORD MD Feb 10, 2024 13:52
--- NOTE | 2024-02-10 09:59 | DS ---
Discharge Summary Hospital Course Summary: 63-year-old female with underlying history of hypertension, recently diagnosed pulmonary hypertension on continuous O2 supplementation at home, underlying history of heart failure, morbid obesity, obstructive sleep apnea, rheumatoid arthritis maintained on outpatient Humira injections, chronic back pain who presented to the ER for further evaluation of bilateral flank pain. Patient states that symptoms have been ongoing for the past two weeks. She had come to the ER on 01/21/[address] abdomen pelvis without contrast which showed findings of 6 mm stone in the proximal right ureter with no hydronephrosis. She was also found to have bilateral nonobstructing kidney st ones in the left and right kidney. 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 Patient underwent renal ultrasound with medication then for a nephrostomy tube 02/08/2024. patient we will follow Dr. Menard 1-2 weeks. We will need a referral from PCP shuttle truck driver's was consulted 2D echo was done LVEF of 55-60% echo cardiogram 02/05/2024. No evidence of pulmonary hypertension. Patient was on high dose of Lasix 40 mg twice a day and home due to lower extremity edema however patient was also on calcium blockers which are discontinued upon discharge. Patient will remain on Lasix only 40 mg p.o. daily. 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 On admission patient was hypotensive then blood pressure medications were resumed patient now will be on losartan 50 mg p.o. daily which can be advanced further to 100 mg p.o. We will discontinue diltiazem which may contribute to her significant lower extremity edema we will resume metoprolol upon discharge. Patient was instructed to follow-up with Dr. Granados in 1-2 weeks. Patient is clinically stable for discharge Procedure(s): 2D echocardiogram 02/05/2024: Conclusion LVEF is55-60%. Septal bounce is present. The left ventricular diastolic function is normal. Trace mitral regurgitation. Estimated pulmonary pressure is within normal range Assessment/Plan: Discharged dx's ANDREA on CKD, POA Developing urinary tract infection, POA Persistent right renal nephrolithiasis, POA Nonresolving bilateral flank pain, POA Hypernatremia, POA Hypokalemia, POA Ruled out acute heart failure exacerbation, POA Underlying history of pulmonary hypertension on continuous O2 therapy as outpatient, POA MARIA TERESA, POA Morbid obesity with BMI 48.4 kg/m2, POA Hypertension, POA Hyperlipidemia, POA Chronic use of outpatient corticosteroids, POA History of chronic back pain, POA Rheumatoid arthritis, POA Possible May-Thurner Syndrome History of chronic outpatient use of benzodiazepines, POA Severe protein calorie malnutrition Normocytic anemia PLAN:- ADMISSION DATE: DISCHARGE DATE: February 10, 2024 DISPOSITION: Home CONDITION: Stable 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 daily. increase losartan NEW MEDICATIONS Furosemide (Lasix 40Mg Tab) 40 Mg Tablet daily Losartan Potassium (Cozaar) 50 Mg Tablet daily and resume metoprolol from home meds. TEACHING: Fall precautions advised to take blood pressure 1st day a.m. 2nd day noon 3rd day p.m. then repeat cycle keep blood pressure log and present to shuttle truck driver's on follow-up appointment. Emergency instructions: The patient was instructed to present to the nearest Emergency Department or call 911 should their symptoms return or worsen. Home Medications: Active Scripts Hydrocodone/Acetaminophen (Hydrocodone-Acetamin 10-300 mg) 10 Mg-300 Mg Tablet, 1 TAB PO QIDP PRN for PAIN for 10 Days, #20 TAB 0 Refills Prov:JANNETTE TRUJILLO DO 01/21/24 Reported Medications Dulaglutide (Trulicity) 1.5 Mg/0.5 Ml Pen.injctr, 1.5 MG SQ DAILY 02/04/24 Adalimumab (Humira) 40 Mg/0.4 Ml Syringekit, 40 MG SQ DAILY 02/04/24 Aspirin (Aspirin) 81 Mg Tab.chew, 81 MG PO DAILY, TAB.CHEW 02/04/24 Diltiazem HCl (Diltiazem 24Hr Cd) 120 Mg Cap.er.24h, 1 CAP PO DAILY for 30 Days, #30 CAP 0 Refills 02/04/24 Omeprazole (Omeprazole) 20 Mg Tablet.dr, 1 TAB PO DAILY for 30 Days, #30 TAB 0 Refills 02/04/24 Isosorbide Dinitrate (Isosorbide Dinitrate) 30 Mg Tablet, 1 TAB PO DAILY for chest pain for 30 Days, #30 TAB 0 Refills 02/04/24 Losartan Potassium (Losartan Potassium) 25 Mg Tablet, 1 TAB PO DAILY for 30 Days, #30 TAB 0 Refills 02/04/24 Bupropion HCl (Wellbutrin Sr) 150 Mg Srtab, 150 MG PO DAILY, TAB.SR 02/04/24 Cetirizine HCl (Zyrtec) 10 Mg Capsule, 1 CAP PO DAILY for allergy symptoms for 30 Days, #30 CAP 0 Refills 02/04/24 Metoprolol Succinate (Metoprolol Succinate) 25 Mg Tab.er.24h, 1 TAB PO DAILY for 30 Days, #30 TAB 0 Refills 02/04/24 Prednisone (Prednisone) 20 Mg Tablet, 1 TAB PO DAILY for 5 Days, #5 TAB 0 Refills 02/04/24 Atorvastatin Calcium (LIPITOR) 10 Mg Tab, 1 TAB PO DAILY for 30 Days, #30 TAB 0 Refills 02/04/24 Pregabalin (Pregabalin) 100 Mg Capsule, 100 MG PO DAILY, CAP 02/04/24 Furosemide (Furosemide) 40 Mg Tablet, 80 MG PO BID, TAB 04/27/22 Clonazepam (Clonazepam) 0.5 Mg Tablet, 0.5 MG PO HSPRN PRN for ANXIETY/AGITATION, TAB 04/27/22 Acetaminophen with Codeine (Acetaminophen-Cod #3 Tablet) 300 Mg-30 Mg Tablet, 1 EACH PO HS PRN for PAIN, TAB 04/27/22 Discontinued Reported Medications Aripiprazole (Aripiprazole) 5 Mg Tablet, 5 MG PO HS, TAB 12/26/22 Potassium Chloride (Potassium Chloride) 20 Meq Tab.er.prt, 40 MEQ PO DAILY 12/26/22 [Metalazone] No Conflict Check, 5 MG PO DAILY 12/26/22 [Trintellix] No Conflict Check, 20 MG PO HS 12/26/22 [Multi-Holstein] No Conflict Check, 1 TAB.CHEW PO DAILY 12/26/22 Cholestyramine (with Sugar) (Cholestyramine Packet) 4 Gram Powd.pack, 4 GM PO DAILY 12/26/22 Multivitamin (Multivitamin) 1 Each Tablet, 2 EACH PO DAILY, TAB 12/26/22 Loratadine (Loratadine) 10 Mg Tablet, 10 MG PO HS, TAB 12/26/22 Esomeprazole Magnesium (Nexium) 40 Mg Capsule.dr, 40 MG PO DAILY, CAP 04/27/22 Ondansetron (Ondansetron Odt) 8 Mg Tab.rapdis, 8 MG PO BID, TAB 04/27/22 Dicyclomine HCl (Dicyclomine HCl) 20 Mg Tablet, 20 MG PO DAILY, TAB 04/27/22 Trazodone HCl (Trazodone HCl) 100 Mg Tablet, 100 MG PO HS, TAB 04/27/22 Famotidine (Famotidine) 40 Mg Tablet, 40 MG PO HS, TAB 04/27/22 Telmisartan (Telmisartan) 20 Mg Tablet, 20 MG PO DAILY, TAB 05/06/21 Carvedilol (Carvedilol) 12.5 Mg Tablet, 12.5 MG PO BID, TAB 05/06/21 Discontinued Scripts Tamsulosin HCl (Flomax) 0.4 Mg Cap.er.24h, 0.4 MG PO DAILY for 30 Days, #30 CAPSULE. Prov:JANNETTE TRUJILLO DO 01/21/24 Ibuprofen (Ibuprofen 800 mg Tab) 800 Mg Tab, 800 MG PO Q6H PRN for PAIN, #30 TAB Prov:JANNETTE TRUJILLO DO 01/21/24 New Medications: Furosemide (Lasix 40Mg Tab) 40 Mg Tablet 40 MG PO DAILY for 30 Days, #30 TAB Losartan Potassium (Cozaar) 50 Mg Tablet 50 MG PO DAILY for 30 Days, #30 TAB Continued Medications: Acetaminophen with Codeine (Acetaminophen-Cod #3 Tablet) 300 Mg-30 Mg Tablet 1 EACH PO HS PRN for PAIN, TAB Adalimumab (Humira) 40 Mg/0.4 Ml Syringekit 40 MG SQ DAILY Aspirin (Aspirin) 81 Mg Tab.chew 81 MG PO DAILY, TAB.CHEW Atorvastatin Calcium (Lipitor) 10 Mg Tab 1 TAB PO DAILY for 30 Days, #30 TAB 0 Refills Bupropion HCl (Wellbutrin Sr) 150 Mg Srtab 150 MG PO DAILY, TAB.SR Cetirizine HCl (Zyrtec) 10 Mg Capsule 1 CAP PO DAILY for allergy symptoms for 30 Days, #30 CAP 0 Refills Clonazepam (Clonazepam) 0.5 Mg Tablet 0.5 MG PO HSPRN PRN for ANXIETY/AGITATION, TAB Dulaglutide (Trulicity) 1.5 Mg/0.5 Ml Pen.injctr 1.5 MG SQ DAILY Hydrocodone/Acetaminophen (Hydrocodone-Acetamin 10-300 mg) 10 Mg-300 Mg Tablet 1 TAB PO QIDP PRN for PAIN for 10 Days, #20 TAB 0 Refills Isosorbide Dinitrate (Isosorbide Dinitrate) 30 Mg Tablet 1 TAB PO DAILY for chest pain for 30 Days, #30 TAB 0 Refills Omeprazole (Omeprazole) 20 Mg Tablet.dr 1 TAB PO DAILY for 30 Days, #30 TAB 0 Refills Prednisone (Prednisone) 20 Mg Tablet 1 TAB PO DAILY for 5 Days, #5 TAB 0 Refills Pregabalin (Pregabalin) 100 Mg Capsule 100 MG PO DAILY, CAP Discontinued Medications: Diltiazem HCl (Diltiazem 24Hr Cd) 120 Mg Cap.er.24h 1 CAP PO DAILY for 30 Days, #30 CAP 0 Refills Furosemide (Furosemide) 40 Mg Tablet 80 MG PO BID, TAB Losartan Potassium (Losartan Potassium) 25 Mg Tablet 1 TAB PO DAILY for 30 Days, #30 TAB 0 Refills Metoprolol Succinate (Metoprolol Succinate) 25 Mg Tab.er.24h 1 TAB PO DAILY for 30 Days, #30 TAB 0 Refills Time spent arranging discharge: 31-60 minutes ATTESTATION BY PHYSICIAN I have seen and examined the patient. I reviewed the documentation, medical decision making, and treatment plan as noted by the resident provider above. I agree with the findings and plan of care. Yoshi Barcenas MD, ELIZABETH NP Feb 10, 2024 09:59
[2024-02-10] MEDS: LoSARTan 50 MG TABLET PO SCH (11:37)
[2024-02-10] MEDS: furoSEMIDE 40 MG TABLET PO SCH (11:38)
--- NOTE | 2024-02-10 12:57 | PN ---
[facility] PROGRESS NOTE Date of Service: Feb 10, 2024 Time of Service: 12:50 SUBJECTIVE:- The patient is a 63-year-old female with a past medical history of hypertension, type 2 diabetes mellitus, pulmonary hypertension on continuous O2 at home, congestive heart failure, morbid obesity with BMI 48.4 kg/m2, obstructive sleep apnea uses CPAP at home, rheumatoid arthritis on chronic steroids and Humira injections, chronic back pain presented to emergency department at [facility] yesterday for the evaluation of the bilateral flank pain of the past 2 weeks. She had an ER visit on 01/20 with the similar complaints were CT abdomen and pelvis without contrast was done which showed 6 mm stone in the proximal right ureter with no hydronephrosis. She was treated with hydrocodone and Flomax and was told to follow urologist outpatient. She did not follow the urologist and continues to have a persistent pain along with a cloudy appearance of urine. * She follows Dr. Ribera cardiology as outpatient for CHF, and due to bilateral lower extremity edema, he increase the dose of Lasix to 40 mg b.i.d. * She was recently diagnosed with pulmonary hypertension and following Dr. Carrillo and has been on oxygen therapy at home. She reported 40 lb weight gain over last several months and reports having significant bilateral lower extremity edema. * She also sees a publicist for rheumatoid arthritis and has been on chron ic steroids with prednisone 30 mg daily and Humira injections. On presentation, significant labs for sodium of 147, potassium 3.2, creatinine 1.6, BNP normal of 16. Creatinine on 01/20 was 1.1. Renal ultrasound showed small cyst, once on each kidney and nonobstructive 1 cm stone in the right kidney, no evidence of mass or hydronephrosis. Urinalysis showed cloudy appearance, trace occult blood, small leukocyte esterase, RBCs 6-10, WBC 2-5, urine squamous epithelial cells moderate and few uric acid crystals. Venous Doppler for negative for any evidences of thrombosis. Cardiology consult was made due to underlying heart failure and pulmonary hypertension, urology and nephrology consult was made due to persistent nephrolithiasis. She was admitted for the management of ANDREA on CKD, concern for volume overload, persistent right nephrolithiasis developing UTI. 02/05/24- The patient was examined today, with family at bedside. She is lying on the bed, does not seem to be in distress, however is complaining about the pelvic pain. Her vitals have been nonsignificant except slightly tachypneic respiratory rate from 22-24. She has been on 2 L of nasal cannula * Per Cardiology note, the patient has a mild hypertension and the recommendations were made to continue diltiazem. For chronic diastolic heart failure continue IV diuretics. She also has a bilateral lower extremity edema suspected to be May-Thurner syndrome. * Per Urology note, the patient needs a right nephrostomy tube replacement. The procedure was supposed to happened last night after CT scan however the patient did not go for CT scan yesterday because she feels claustrophobic and needs anxiolytics before the procedure which she did not receive yesterday. No follow up was done, CT scan was canceled however and was done today * Per nephrology, she was started with 100 cc/hour IV fluids, and need further workup for possible iron-deficiency anemia. Labs: Sodium 146, potassium 3.4, carbon dioxide 38, BUN 26, creatinine went up to 1.7 from 1.6, GFR 34, normal liver enzymes, albumin 3.0. Assessment and plan discussed below. 02/06/24- The patient was examined today, with family on the bedside. She has been on morphine, however complaining of still excruciating pain, 11/02 at present. The patient was supposed to go for right nephrostomy tube placement however per Dr. Arevalo and the radiologist conversations, she will be first going for IVP with diuresis to evaluate the intensity or severity of hydronephrosis. Based on that, nephrostomy tube placement decision will be made. Labs: Sodium 145, potassium 3.2, BUN went up to 36 from 6, creatinine went up to 2.3 From 1.7, GFR went down to 23 from 34. Due to worsening of renal functions, the brick pitcher discontinued Bumex. Also Dr. Ribera does not think the patient should be on isosorbide dinitrate, metoprolol. She has mild pulmonary hypertension and he also does not think diltiazem is the first-line medication without underlying AFib. He thinks causes of bilateral edema is due to May-Thurner syndrome which can be managed inpatient or outpatient after improvement in renal functions. Recommendations will be followed. Further assessment and plan discussed below. 02/07/24: The patient was examined today, with the family on the bedside. She has been on Dilaudid 1 mg Q4 since yesterday. Pain is somewhat manageable with the Dilaudid. IVP with Lasix study yesterday showed absence of excretion on the right consistent with a high-grade obstruction in the right proximal kidney with normal uptake and excretion on the left. She denies any shortness of breath, chest pain, difficulty in urination or any other symptoms. She remains afebrile, however had few episodes of tachycardia in the blood pressure is running on the softer side with SBP is in 100 and diastolic in 70s she has been on and off to the nasal cannula. She has 3+ bilateral pitting edema. Labs: WBCs went up to 13.2 From 10.1, sodium 141, potassium went down to 3.0 from 3.2, chloride 98, BUN went down to 34 from 36, went up to 2.4 From 2.3. We will give 40 mg IV Lasix today. She is going for the nephrostomy tube placement around 3:00 p.m. today. Further assessment and plan discussed below. 02/08/24: The patient was sent for nephrostomy tube placement during the visit. Family was available in the room. Updates were collected from the nurse. She has been in excruciating pain requiring Dilaudid Q4. Pain is somewhat manageable with it. Despite of no vomiting or diarrheal episodes, patient's potassium has remained low. We will monitor K and replace per protocol. Kidney functions are improving. She has been on and off the nasal cannula and using CPAP at night. Labs: Potassium went down to 2.9 from 3.0, BUN went down to 26 from 34, Creatinine went down to 1.5 from 2.4, GFR 39, Hemoglobin 10.5. Evaluate the patient post nephrostomy tube insertion. Further assessment and plan as discussed below 02/10/24 patient is seen and examined with attending. Reviewed chart reviewed medications patient continues on Dilaudid every4 hours discharge planning were be changed to p.o. Caldwell one tab every 4 hours. Patient is requesting home health services this we will need to be arranged by PCP. is concerned that she will continue with pain at home and we will bring her back. She has been on Dilaudid here patient refused rehab. Physical therapy continues to work with patient. REVIEW OF SYSTEMS CONSTITUTIONAL: Denies fevers, chills, or night sweats. No unintentional weight loss reported. NEUROLOGICAL: Denies headache, amaurosis fugax, motor weakness, sensory deficit, vertigo/spinning sensation, gait abnormalities, or tremors. ENT: No hearing loss, otalgia, otorrhea, rhinitis, rhinorrhea, hoarseness, or sore throat. CARDIOVASCULAR: Lower extremity edema, PULMONARY: Denies any shortness of breath, cough, phlegm/sputum, hemoptysis, pleuritic chest pain. SLEEP: Denies morning headaches, daytime somnolence or napping. Denies difficulty falling asleep, staying asleep, waking from sleep. Denies knowledge of snoring. GASTROINTESTINAL: Nausea GENITOURINARY: Persistent Flank pain with dysuria ENDOCRINOLOGIC: Denies polyuria, polydipsia, polyphagia or heat/cold intolerances. HEMATOLOGIC: Denies thrombophilia/previous clots, or coagulopathy/bleeding disorders. ONCOLOGIC: Denies personal history of malignancy. DERMATOLOGIC: Denies rashes or pruritus. PSYCHIATRIC: Denies any suicidal or homicidal ideation. Denies hallucinations. PHYSICAL EXAM GENERAL APPEARANCE: The patient is awake, but appears sleepy, patient recently received IM dose of Benadryl, patient is obese NEUROLOGICAL: Cranial nerves II-XII grossly intact. Motor is 5/5 in bilateral upper and lower extremities proximal to distal. No sensory deficits. HEENT: Face is symmetric. Pupils are equal and reactive. Extraocular movements are intact. NECK: Supple. No JVD. No thyromegaly. No submental, submandibular, pre- /postauricular, occipital or supraclavicular lymphadenopathy. CHEST: Normal chest expansion. No Telemetry. LUNGS: minimal crackles noted at bilateral lung bases CARDIOVASCULAR: Regular. S1 and S2 normal. No appreciable rubs, murmurs or gallops. ABDOMEN: Soft, nontender, and nondistended. There is no rebound, voluntary guarding, or rigidity. : Deferred. No Schuler. EXTREMITIES: Legs are swollen with 3+ pitting edema bilaterally SKIN: No skin breakdown. Vital Signs (last 8hr) Date Time Temp Pulse Resp B/P (MAP) Pulse Ox O2 Delivery O2 Flow Rate FiO2 02/10/24 12:00 97.5 95 19 116/69 99 Nasal Cannula 2.0 02/10/24 08:00 98.2 97 19 142/75 94 Room Air 02/10/24 08:00 99 Nasal Cannula* 3 32 02/10/24 06:53 86 20 LABS: Laboratory: Test 02/10/24 11:09 02/10/24 05:03 02/09/24 05:07 Range/Units Whole Blood Glucose 118 H 70-110 MG/DL White Blood Count 6.9 4.8-10.8 K/uL Red Blood Count 3.67 L 4.00-5.50 MIL/uL Hemoglobin 10.1 L 12.0-16.0 g/dL Hematocrit 34.0 L 36-48 % Mean Corpuscular Volume 92.6 79-99 fL Mean Corpuscular Hemoglobin 27.5 27.0-33.0 pg Mean Corpuscular Hemoglobin Concent 29.7 L 32.0-36.0 g/dL Red Cell Distribution Width 13.5 11.0-15.5 % Platelet Count 230 130-400 K/uL Mean Platelet Volume 10.0 7.5-10.5 fL Nucleated Red Blood Cells 0.0 0.0-0.19 % Sodium Level 143 136-145 mmol/L Potassium Level 3.5 3.5-5.1 mmol/L Chloride Level 104 101-111 mmol/L Carbon Dioxide Level 34 H 21-32 mmol/L Blood Urea Nitrogen 17 7-18 mg/dL Creatinine 1.1 H 0.5-1.0 mg/dL Glomerular Filtration Rate Calc 57 >90 mL/min Random Glucose 132 H 70-105 mg/dL Total Calcium 8.9 8.5-10.1 mg/dL Phosphorus Level 2.6 2.5-4.9 mg/dL Magnesium Level 1.60 L 1.80-2.40 mg/dL Total Bilirubin 0.3 0.2-1.0 mg/dL Aspartate Amino Transf (AST/SGOT) 18 10-37 U/L Alanine Aminotransferase (ALT/SGPT) 36 12-78 U/L Alkaline Phosphatase 69 50-136 U/L Total Protein 5.9 L 6.0-8.3 g/dL Albumin 2.6 L 3.5-5.0 g/dL Immature Granulocyte % (Auto) 0.5 0-1 % Neutrophils (%) (Auto) 44.1 40.0-77.0 % Lymphocytes (%) (Auto) 35.3 21.0-51.0 % Monocytes (%) (Auto) 15.1 H 3.0-13.0 % Eosinophils (%) (Auto) 4.5 0.0-8.0 % Basophils (%) (Auto) 0.5 0.0-5.0 % Neutrophils # (Auto) 3.5 1.8-7.7 K/uL Lymphocytes # (Auto) 2.8 1.0-4.8 K/uL Monocytes # (Auto) 1.2 H 0.1-1.0 K/uL Eosinophils # (Auto) 0.36 0.00-0.70 K/uL Basophils # (Auto) 0.04 0.00-0.20 K/uL Absolute Immature Granulocyte (auto 0.04 0-1 K/uL White Cell Morphology Comment CONSISTENT W/DIFF Current Medications Medications (Trade) Dose Ordered Sig/Ashanti Route PRN Reason Start Time Stop Time Status Last Admin Dose Admin Acetaminophen (TYLenol 325MG TAB) 650 mg Q6H PRN PO MILD PAIN (1-3) 02/04/24 12:30 03/05/24 12:29 Acetazolamide Sodium (DIAmox 500MG INJ) 500 mg DAILY IV 02/04/24 13:30 02/07/24 13:29 DC 02/07/24 13:45 500 MG Albuterol (DUOneb) 1 udvial Q6H PRN IH SHORTNESS OF BREATH 02/04/24 12:30 03/05/24 12:29 Aspirin (Aspirin 81mg Chew Tab) 81 mg Q24H PO 02/04/24 12:30 03/05/24 12:29 02/10/24 11:38 81 MG Atorvastatin Calcium (LIPItor 10MG) 10 mg DAILY PO 02/05/24 09:00 02/08/24 13:21 DC Atorvastatin Calcium (LIPItor 10MG) 10 mg HS PO 02/08/24 21:00 03/06/24 08:59 02/09/24 20:04 10 MG Bumetanide (Bumex 1mg Vial) 1 mg Q8H IVP 02/04/24 13:30 02/06/24 07:07 DC 02/06/24 05:32 1 MG Bupropion HCl (WellBUTrin SR 150MG) 150 mg DAILY PO 02/05/24 09:00 03/06/24 08:59 02/10/24 08:12 150 MG Ceftriaxone Sodium (ROCEphine 1G INJ) 1 gm Q12H IVPB 02/04/24 12:00 02/14/24 11:59 02/10/24 11:38 1 GM Cetirizine HCl (ZYRtec 5 MG TABLET) 10 mg Q24H PO 02/04/24 13:00 03/05/24 12:59 02/10/24 11:37 10 MG Clonazepam (clonazePAM 0.5 mg) 0.5 mg HSPRN PRN PO ANXIETY/AGITATION 02/04/24 15:30 03/05/24 15:29 02/06/24 20:29 0.5 MG Diltiazem HCl (CARDIzem 120MG CD) 120 mg Q24H PO 02/04/24 12:30 02/06/24 07:23 DC 02/05/24 13:11 120 MG Furosemide (LASix 40MG TAB) 40 mg DAILY PO 02/10/24 09:00 03/11/24 08:59 02/10/24 11:38 40 MG Heparin Sodium (Porcine) (HEParin 5,000 UNIT VIAL) 5,000 unit Q8H SQ 02/07/24 22:00 03/08/24 21:59 02/10/24 06:47 5,000 UNIT Hydromorphone HCl (DiLAUDid 1MG INJ) 1 mg Q4H PRN IVP SEVERE PAIN (7-10) 02/06/24 12:30 02/11/24 12:29 02/10/24 11:39 1 MG Insulin Human Regular (humuLIN R 100 UNIT/ML 3ML) INSULIN SLIDING SCAL... ACHS SQ 02/04/24 16:30 03/05/24 16:29 Isosorbide Mononitrate (Imdur 30mg Sr) 30 mg DAILY PO 02/04/24 15:00 02/06/24 07:07 DC 02/05/24 09:29 30 MG Losartan Potassium (CozAAR 50 mg TAB) 50 mg DAILY PO 02/10/24 09:00 03/11/24 08:59 02/10/24 11:37 50 MG Metoprolol Succinate (TopROL XL) 25 mg DAILY PO 02/04/24 15:00 02/06/24 07:23 DC 02/05/24 09:29 25 MG Miscellaneous Medication (Isosorbide Dinitrate ) 1 tab DAILY PO 02/05/24 09:00 02/04/24 17:04 DC Morphine Sulfate (morPHINE 2MG SYG) 2 mg Q6H PRN IVP SEVERE PAIN (7-10) 02/04/24 12:30 02/04/24 12:27 DC Morphine Sulfate (morPHINE 2MG SYG) 2 mg Q6H PRN IVP SEVERE PAIN (7-10) 02/04/24 12:30 02/06/24 12:11 DC 02/06/24 08:38 2 MG Ondansetron HCl (zoFRAN 4MG INJ) 4 mg Q6H PRN IVP NAUSEA/VOMITING 02/04/24 12:30 03/05/24 12:29 02/10/24 11:57 4 MG Pantoprazole Sodium (PROTonix 40MG TAB) 40 mg DAILY PO 02/05/24 09:00 03/06/24 08:59 02/10/24 08:12 40 MG Potassium Chloride 100 ml @ 100 mls/hr AD PRN IV POTASSIUM PROTOCOL 02/04/24 12:30 03/05/24 12:29 02/07/24 04:55 100 MLS/HR Potassium Chloride (K-Dur 10meq Sr Tab) 10 meq AD PRN PO POTASSIUM PROTOCOL 02/04/24 12:30 03/05/24 12:29 02/09/24 14:51 10 MEQ Potassium Chloride (K-Dur/Klor-Con 20meq) 20 meq QID PO 02/07/24 13:00 02/08/24 09:01 DC 02/07/24 20:55 20 MEQ Potassium Chloride (KCl 10% Elixir 20meq/15ml) 10 meq AD PRN PO POTASSIUM PROTOCOL 02/04/24 12:30 03/05/24 12:29 Prednisone (deltaSONE/ ORASONE 10MG) 30 mg Q24H PO 02/04/24 12:30 03/05/24 12:29 02/10/24 11:38 30 MG Pregabalin (LYRica 100MG) 100 mg DAILY PO 02/05/24 09:00 03/06/24 08:59 02/10/24 08:12 100 MG Sodium Chloride 1,000 ml @ 50 mls/hr Q20H IV 02/05/24 10:00 02/07/24 09:20 DC 02/06/24 16:07 50 MLS/HR DIAGNOSTICS / RADIOLOGY: [ ] ANDREA on CKD, POA Developing urinary tract infection, POA Persistent right renal nephrolithiasis, POA Nonresolving bilateral flank pain, POA Hypernatremia, POA Hypokalemia, POA Ruled out acute heart failure exacerbation, POA Underlying history of pulmonary hypertension on continuous O2 therapy as outpatient, POA MARIA TERESA, POA Morbid obesity with BMI 48.4 kg/m2, POA Hypertension, POA Hyperlipidemia, POA Chronic use of outpatient corticosteroids, POA History of chronic back pain, POA Rheumatoid arthritis, POA Possible May-Thurner Syndrome History of chronic outpatient use of benzodiazepines, POA Severe protein calorie malnutrition Normocytic anemia PLAN:- The Patient remains admitted on the medical surgical floor. ANDREA on CKD, POA Developing urinary tract infection, POA Persistent right renal nephrolithiasis, POA Nonresolving bilateral flank pain, POA Patient continues with diuretics 40 mg daily as per brick pitcher's. Restrict oral fluid intake to 1.5 L a day. Discontinue Dilaudid started on Caldwell p.o. every 4 hours. s/p post nephrostomy tube insertion. We will follow-up with Urology upon discharge. Ruled out acute heart failure exacerbation, POA Peripheral edema, POA Continue with acetazolamide 500 mg IV daily for 3 days Patient is on losartan 50 mg p.o. daily if blood pressure continues to elevate okay to increase 100 mg daily. And restart metoprolol Pulmonary hypertension Continue with supplemental O2 therapy to maintain oxygen saturation greater than 92% - home dependent already has oxygen at home. Obstructive sleep apnea Morbid obesity, BMI 48.4 kg per m2 Continue with CPAP at night for breathing support Rheumatoid arthritis Continue with prednisone 30 mg daily Possible May-Thurner Syndrome The patient will be needing of DAPT after the diagnosis of May-Thurner syndrome. Per Scrummaster, the patient needs to recover from ANDREA and Nephrostomy tube placement. Management of May- Thurner will be done as an outpatient by the brick pitcher 2-4 weeks post discharge. Home medications were reconciled and resumed P.r.n. medications for nausea, pain Continue with insulin sliding scale for hyperglycemia Continue with the atorvastatin 10 mg, aspirin 81 mg Replace electrolytes per protocol Heparin 5000 IU Q8 for DVT prophylaxis. Incentive Spirometry to help with breathing AM labs: CBC, BMP Case discussed with the attending agrees with plan. ATTESTATION BY PHYSICIAN I have seen and examined the patient. I reviewed the documentation, medical decision making, and treatment plan as noted by the resident provider above. I agree with the findings and plan of care. Yoshi Barcenas MD, ELIZABETH NP Feb 10, 2024 12:57
--- NOTE | 2024-02-10 13:26 | PN ---
NEPHROLOGY PROGRESS NOTE Date/Time Patient Seen: Feb 10, 2024 Reason for Consultation: 13:25 SUBJECTIVE: This is a 63-year-old female with the history of hypertension, rheumatoid arthritis, sleep apnea. She presented to the hospital and found to have obstructive uropathy. She continues to be followed by Cardiology She does have an elevated BUN and creatinine. The patient's creatinine has somewhat stabilized. S/P right nephrostomy tube placement on 02/07. The patient had previously been seen by Urology. Renal function continues to improve Electrolytes are stable Hemoglobin is stable. She continues on antibiotics Blood pressure is under adequate control. She was seen in the medical floor, in no acute distress Family at the bedside Prognosis remains guarded REVIEW OF SYSTEMS: GENERAL: Negative for any nausea, vomiting, fevers, chills, or weight loss. NEUROLOGIC: Negative for any blurry vision, blind spots, double vision, facial asymmetry, dysphagia, dysarthria, hemiparesis, hemisensory deficits, vertigo, ataxia. HEENT: Negative for any head trauma, neck trauma, neck stiffness, photophobia, phonophobia, sinusitis, rhinitis. CARDIAC: Negative for any chest pain, dyspnea on exertion, paroxysmal nocturnal dyspnea, peripheral edema. PULMONARY: Negative for any shortness of breath, wheezing, COPD, or TB exposure. GASTROINTESTINAL: Negative for any abdominal pain, nausea, vomiting, bright red blood per rectum, melena. GENITOURINARY: Negative for any dysuria, hematuria, incontinence. INTEGUMENTARY: Negative for any rashes, cuts, insect bites. RHEUMATOLOGIC: Negative for any joint pains, photosensitive rashes, history of vasculitis or kidney problems. HEMATOLOGIC: Negative for any abnormal bruising, frequent infections or bleeding. Vital Signs (last 8hr) Date Time Temp Pulse Resp B/P (MAP) Pulse Ox O2 Delivery O2 Flow Rate FiO2 02/09/24 12:00 98.1 116 19 136/78 95 Room Air 02/09/24 08:00 91 Nasal Cannula* 2 28 02/09/24 07:56 98.1 94 18 126/96 91 Room Air PHYSICAL EXAM: GENERAL: Alert and oriented x 3. No acute distress. Well-nourished. EYES: EOMI. Anicteric. HENT: Moist mucous membranes. No scleral icterus. No cervical lymphadenopathy. LUNGS: Clear to auscultation bilaterally. No accessory muscle use. CARDIOVASCULAR: Regular rate and rhythm. No murmur. No JVD. ABDOMEN: Soft, non-tender and non-distended. No palpable masses. EXTREMITIES: No edema. Non-tender. SKIN: No rashes or lesions. Warm. NEUROLOGIC: No focal neurological deficits. CN II-XII grossly intact, but not individually tested. PSYCHIATRIC: Cooperative. Appropriate mood and affect. Current Medications Medications (Trade) Dose Ordered Sig/Ashanti Route PRN Reason Start Time Stop Time Status Last Admin Dose Admin Acetaminophen (TYLenol 325MG TAB) 650 mg Q6H PRN PO MILD PAIN (1-3) 02/04/24 12:30 03/05/24 12:29 Acetazolamide Sodium (DIAmox 500MG INJ) 500 mg DAILY IV 02/04/24 13:30 02/07/24 13:29 DC 02/07/24 13:45 500 MG Albuterol (DUOneb) 1 udvial Q6H PRN IH SHORTNESS OF BREATH 02/04/24 12:30 03/05/24 12:29 Aspirin (Aspirin 81mg Chew Tab) 81 mg Q24H PO 02/04/24 12:30 03/05/24 12:29 02/09/24 11:48 81 MG Atorvastatin Calcium (LIPItor 10MG) 10 mg DAILY PO 02/05/24 09:00 02/08/24 13:21 DC Atorvastatin Calcium (LIPItor 10MG) 10 mg HS PO 02/08/24 21:00 03/06/24 08:59 02/08/24 20:39 10 MG Bumetanide (Bumex 1mg Vial) 1 mg Q8H IVP 02/04/24 13:30 02/06/24 07:07 DC 02/06/24 05:32 1 MG Bupropion HCl (WellBUTrin SR 150MG) 150 mg DAILY PO 02/05/24 09:00 03/06/24 08:59 02/09/24 08:20 150 MG Ceftriaxone Sodium (ROCEphine 1G INJ) 1 gm Q12H IVPB 02/04/24 12:00 02/14/24 11:59 02/09/24 11:48 1 GM Cetirizine HCl (ZYRtec 5 MG TABLET) 10 mg Q24H PO 02/04/24 13:00 03/05/24 12:59 02/09/24 11:47 10 MG Clonazepam (clonazePAM 0.5 mg) 0.5 mg HSPRN PRN PO ANXIETY/AGITATION 02/04/24 15:30 03/05/24 15:29 02/06/24 20:29 0.5 MG Diltiazem HCl (CARDIzem 120MG CD) 120 mg Q24H PO 02/04/24 12:30 02/06/24 07:23 DC 02/05/24 13:11 120 MG Heparin Sodium (Porcine) (HEParin 5,000 UNIT VIAL) 5,000 unit Q8H SQ 02/07/24 22:00 03/08/24 21:59 02/09/24 06:45 5,000 UNIT Hydromorphone HCl (DiLAUDid 1MG INJ) 1 mg Q4H PRN IVP SEVERE PAIN (7-10) 02/06/24 12:30 02/11/24 12:29 02/09/24 11:53 1 MG Insulin Human Regular (humuLIN R 100 UNIT/ML 3ML) INSULIN SLIDING SCAL... ACHS SQ 02/04/24 16:30 03/05/24 16:29 Isosorbide Mononitrate (Imdur 30mg Sr) 30 mg DAILY PO 02/04/24 15:00 02/06/24 07:07 DC 02/05/24 09:29 30 MG Metoprolol Succinate (TopROL XL) 25 mg DAILY PO 02/04/24 15:00 02/06/24 07:23 DC 02/05/24 09:29 25 MG Miscellaneous Medication (Isosorbide Dinitrate ) 1 tab DAILY PO 02/05/24 09:00 02/04/24 17:04 DC Morphine Sulfate (morPHINE 2MG SYG) 2 mg Q6H PRN IVP SEVERE PAIN (7-10) 02/04/24 12:30 02/04/24 12:27 DC Morphine Sulfate (morPHINE 2MG SYG) 2 mg Q6H PRN IVP SEVERE PAIN (7-10) 02/04/24 12:30 02/06/24 12:11 DC 02/06/24 08:38 2 MG Ondansetron HCl (zoFRAN 4MG INJ) 4 mg Q6H PRN IVP NAUSEA/VOMITING 02/04/24 12:30 03/05/24 12:29 02/08/24 18:18 4 MG Pantoprazole Sodium (PROTonix 40MG TAB) 40 mg DAILY PO 02/05/24 09:00 03/06/24 08:59 02/09/24 08:20 40 MG Potassium Chloride 100 ml @ 100 mls/hr AD PRN IV POTASSIUM PROTOCOL 02/04/24 12:30 03/05/24 12:29 02/07/24 04:55 100 MLS/HR Potassium Chloride (K-Dur 10meq Sr Tab) 10 meq AD PRN PO POTASSIUM PROTOCOL 02/04/24 12:30 03/05/24 12:29 02/09/24 10:37 10 MEQ Potassium Chloride (K-Dur/Klor-Con 20meq) 20 meq QID PO 02/07/24 13:00 02/08/24 09:01 DC 02/07/24 20:55 20 MEQ Potassium Chloride (KCl 10% Elixir 20meq/15ml) 10 meq AD PRN PO POTASSIUM PROTOCOL 02/04/24 12:30 03/05/24 12:29 Prednisone (deltaSONE/ ORASONE 10MG) 30 mg Q24H PO 02/04/24 12:30 03/05/24 12:29 02/09/24 11:47 30 MG Pregabalin (LYRica 100MG) 100 mg DAILY PO 02/05/24 09:00 03/06/24 08:59 02/09/24 08:20 100 MG Sodium Chloride 1,000 ml @ 50 mls/hr Q20H IV 02/05/24 10:00 02/07/24 09:20 DC 02/06/24 16:07 50 MLS/HR LABORATORY: [ ] Hematology Labs: Test 02/10/24 05:03 02/09/24 05:07 Range/Units White Blood Count 6.9 4.8-10.8 K/uL Red Blood Count 3.67 L 4.00-5.50 MIL/uL Hemoglobin 10.1 L 12.0-16.0 g/dL Hematocrit 34.0 L 36-48 % Mean Corpuscular Volume 92.6 79-99 fL Mean Corpuscular Hemoglobin 27.5 27.0-33.0 pg Mean Corpuscular Hemoglobin Concent 29.7 L 32.0-36.0 g/dL Red Cell Distribution Width 13.5 11.0-15.5 % Platelet Count 230 130-400 K/uL Mean Platelet Volume 10.0 7.5-10.5 fL Nucleated Red Blood Cells 0.0 0.0-0.19 % Immature Granulocyte % (Auto) 0.5 0-1 % Neutrophils (%) (Auto) 44.1 40.0-77.0 % Lymphocytes (%) (Auto) 35.3 21.0-51.0 % Monocytes (%) (Auto) 15.1 H 3.0-13.0 % Eosinophils (%) (Auto) 4.5 0.0-8.0 % Basophils (%) (Auto) 0.5 0.0-5.0 % Neutrophils # (Auto) 3.5 1.8-7.7 K/uL Lymphocytes # (Auto) 2.8 1.0-4.8 K/uL Monocytes # (Auto) 1.2 H 0.1-1.0 K/uL Eosinophils # (Auto) 0.36 0.00-0.70 K/uL Basophils # (Auto) 0.04 0.00-0.20 K/uL Absolute Immature Granulocyte (auto 0.04 0-1 K/uL White Cell Morphology Comment CONSISTENT W/DIFF Chemistry Labs: Test 02/10/24 11:09 02/10/24 05:03 Range/Units Whole Blood Glucose 118 H 70-110 MG/DL Sodium Level 143 136-145 mmol/L Potassium Level 3.5 3.5-5.1 mmol/L Chloride Level 104 101-111 mmol/L Carbon Dioxide Level 34 H 21-32 mmol/L Blood Urea Nitrogen 17 7-18 mg/dL Creatinine 1.1 H 0.5-1.0 mg/dL Glomerular Filtration Rate Calc 57 >90 mL/min Random Glucose 132 H 70-105 mg/dL Total Calcium 8.9 8.5-10.1 mg/dL Phosphorus Level 2.6 2.5-4.9 mg/dL Magnesium Level 1.60 L 1.80-2.40 mg/dL Total Bilirubin 0.3 0.2-1.0 mg/dL Aspartate Amino Transf (AST/SGOT) 18 10-37 U/L Alanine Aminotransferase (ALT/SGPT) 36 12-78 U/L Alkaline Phosphatase 69 50-136 U/L Total Protein 5.9 L 6.0-8.3 g/dL Albumin 2.6 L 3.5-5.0 g/dL DIAGNOSTICS / RADIOLOGY: REASON: Leucocytosis, Tachycardia, rule out pneumonia ORDERING PHYSICIAN: MINERVA TELLEZ MD PROCEDURE: CXR1VW - CHEST 1VW CHEST 1VW REASON: Leucocytosis, Tachycardia, rule out pneumonia COMPARISON: 02/04/2024 FINDINGS: Single view of the chest was obtained. Lungs are clear. Heart size is normal. There is no pulmonary vascular congestion. Mediastinum and bony thorax appear unremarkable. IMPRESSION: 1. Normal single view chest x-ray. DICTATED BY: DIANN RUBY MD DATE: 02/07/24 1057 REASON: R/O hydronephrosis ORDERING PHYSICIAN: HARSHA MEDEROS MD PROCEDURE: RENAL LASX - NM RENOGRAM W/ LASIX NM RENOGRAM W/ LASIX REASON: R/O hydronephrosis COMPARISON: None TECHNIQUE: Routine imaging protocol was performed following injection of 7.3 mCi technetium 99 M MAG3. 40 mg of Lasix was administered IV push 15 minutes into the exam. FINDINGS: Images show prompt the isotope uptake and excretion on the left. Left has a normal-appearing excretion curve is accentuated by Lasix. There is delayed isotope uptake on the right. There is gradually increasing activity curve on the right consistent with a high degree of obstruction, this is not significantly affected by Lasix. The T1 half following Lasix on the left is 12.6 minutes, within normal limits. The T1 half on the right cannot be calculated as the activity curve continues to rise rather than fall. Split function is 74.1% left and 25.9% right IMPRESSION: 1. Delayed nephrogram and absence of excretion on the right consistent with a high-grade obstruction in the right proximal kidney 2. Normal uptake and excretion on the left. DICTATED BY: DIANN RUBY MD DATE: 02/06/24 1636 REASON: r/o right renal hydronephrosis ORDERING PHYSICIAN: HARSHA MEDEROS MD PROCEDURE: RENAL - US RENAL SONOGRAM US RENAL SONOGRAM REASON: r/o right renal hydronephrosis COMPARISON: None TECHNIQUE: Renal and bladder sonogram performed. FINDINGS: Right kidney is 10 x 5.6 x 6.4 cm, left 10.6 x 4.7 x 5.1 cm. There is a 2.6 cm cyst lower pole right kidney and a 3.1 cm cyst upper pole left kidney. There are no focal masses. There is mild hydronephrosis on the right. This is better seen on previous day's CT scan. There is no hydronephrosis on the left. IMPRESSION: 1. Mild right-sided hydronephrosis. 2. Small bilateral cysts. 3. Urinary bladder only partially distended and not well visualized. DICTATED BY: DIANN RUBY MD DATE: 02/06/24 1250 REASON: hx of pulm htn, assess for heart failure, SHC to read ORDERING PHYSICIAN: LOR PATRICIA MD PROCEDURE: ECHO CMP - ECHO 2-D COMPLETE APPROVED REPORT EXAM: Two-dimensional and M-mode echocardiogram with Doppler and color Doppler. INDICATION ICD: pulmonary hypertension Heart Failure 2D Dimensions RVDd 3.7 cm LVEF(%) 63.7 (>50%) LVED Vol(simp.) 80.4 mL IVSd 1.2 (0.7-1.1cm) FS(%) 35 % LVES Vol(simp.) 30.3 mL LVDd 4.9 (3.8-5.6cm) LA (2D) 4.0 (1.6-4.0cm) LVEF(%, simp.) 62 % PWd 1.0 (0.7-1.1cm) Ao Root(2D) 3.1 (2.0-3.7cm) LA ESV INDEX (4CH) 21.70 mL/m2 IVSs 1.6 cm LVOT diam 2.4 (1.8-2.4cm) LA ESV INDEX (2CH) 21.30 mL/m2 LVDs 3.2 (2.5-4.0cm) LA ESV INDEX (BP) 23.70 mL/m2 PWs 1.6 cm Deformation Strain Apical 4 22.0 % Apical 2 24.0 % Apical 3 24.0 % Global Strain 23.0 % M-Mode Dimensions EPSS 0.6 cm LA (MM) 3.6 (1.6-4.0cm) Ao Root(MM) 3.6 (2.0-3.7cm) Aortic Valve AoV VTI 0.3 m Ao Mean GR 5.0 mmHg LVOT VTI 0.25 m CHRISTOPHER (VMAX) 3.5 cm2 CHRISTOPHER (VTI) 3.5 cm2 Mitral Valve MV E Vmax 94.6 cm/s DECEL Time 229 ms MV A Vmax 59.7 cm/s P 1/2 T 87 ms E/A ratio 1.6 MVA (PHT) 2.5 cm2 MR Max PG 51 mmHg TDI E/E' Medial 12.0 E/E' Lateral 9.8 Medial E' Peak V 7.90 cm/s Lateral E' Peak V 9.70 cm/s Pulmonary Valve PV Vmax 1.0 m/s PV Peak GR 4.1 mmHg Left Ventricle The left ventricle is normal size. GLS -23%. There is normal left ventricular wall thickness. Septal bounce is present. LVEF is55-60%. The left ventricular diastolic function is normal. Right Ventricle The right ventricle is normal size. The right ventricular systolic function is normal. Atria The left atrium size is normal. The right atrium size is normal. Aortic Valve The aortic valve is normal in structure. No aortic regurgitation is present. There is no aortic valvular stenosis. Mitral Valve The mitral valve is normal in structure. Trace mitral regurgitation. There is no mitral valve stenosis. Tricuspid Valve The tricuspid valve is normal in structure. There is no tricuspid valve regurgitation noted. Pulmonic Valve The pulmonary valve is normal in structure. There is no pulmonic valvular regurgitation. Great Vessels The aortic root is normal in size. The IVC is dilated and collapses >50% with inspiration. Pericardium There is no pericardial effusion. Other Information Quality : Good Rhythm : NSR Conclusion LVEF is55-60%. Septal bounce is present. The left ventricular diastolic function is normal. Trace mitral regurgitation. Estiamted pulmonary pressure is within normal range DICTATED BY: ANA WALKER DO DATE: 02/05/24 0742 REASON: Bilateral flank pain, Nephrolithiasis ORDERING PHYSICIAN: MINERVA TELLEZ MD PROCEDURE: ABD PEL WO - CT ABDOMEN/PELVIS W/O CONTRAST CT ABDOMEN/PELVIS W/O CONTRAST REASON: Bilateral flank pain, Nephrolithiasis COMPARISON: 02/21/2024 FINDINGS: Lung bases are clear. There are no focal liver lesions. The liver is not enlarged.. Spleen and pancreas appear unremarkable. There has been a previous cholecystectomy. There is mild to moderate right hydronephrosis. There is a 6 mm stone in the proximal right ureter at the level of the lower pole of the right kidney. There is an additional 2 mm nonobstructing stone in an upper pole calyx on the right and there are several very small stones lower pole calyx on the right as well. Left kidney appears unremarkable with the exception of a small cyst upper pole. Bowel loops appear unremarkable. This includes normal appearance of the appendix There is no evidence of free fluid or intraperitoneal air. There are no focal fluid collections. Aorta and retroperitoneum appear normal as do pelvic soft tissue structures. The anterior abdominal wall is intact. Osseous structures appear unremarkable. IMPRESSION: 1. 6 mm right ureteral stone at the level of the lower pole right kidney, there is mild to moderate right hydronephrosis. 2. There are several additional very small nonobstructing stones in the right kidney, there are small bilateral cysts as well. 3. Absent gallbladder. CT was performed with one or more following dose reduction techniques: automated exposure control, adjustment of the mA and kv according to patient's size, or use of a iterative reconstruction technique. DICTATED BY: DIANN RUBY MD DATE: 02/05/24 1239 REASON: please assess for infltrates ORDERING PHYSICIAN: LOR PATRICIA MD PROCEDURE: CXR1VW - CHEST 1VW CHEST 1VW REASON: please assess for infltrates COMPARISON: 05/05/2021 FINDINGS: Single view of the chest was obtained. Lungs are clear. Heart size is normal. There is no pulmonary vascular congestion. Mediastinum and bony thorax appear unremarkable. IMPRESSION: 1. Normal single view chest x-ray. DICTATED BY: DIANN RUBY MD DATE: 02/04/24 1247 REASON: significant bilateral lower extremity edema ORDERING PHYSICIAN: LOR PATRICIA MD PROCEDURE: VENOUS PAULETTE - US VENOUS DOPPLER BILATERAL US VENOUS DOPPLER BILATERAL REASON: significant bilateral lower extremity edema COMPARISON: None Technique: Bilateral venous doppler ultrasound was performed with spectral analysis and color flow imaging technique. FINDINGS: There is a normal appearance of the common femoral, deep femoral, the profunda femoris and popliteal veins. Proximal calf veins appear normal as well. There is normal response to compression and augmentation. There is no evidence of deep venous thrombosis. IMPRESSION: Normal bilateral lower extremity venous Doppler ultrasound. DICTATED BY: DIANN RUBY MD DATE: 02/04/24 1446 REASON: bilateral flank pain ORDERING PHYSICIAN: RENATA DE ANDA MD PROCEDURE: RENAL - US RENAL SONOGRAM US RENAL SONOGRAM REASON: bilateral flank pain COMPARISON: None TECHNIQUE: Renal and bladder sonogram was performed. FINDINGS: Right kidney is 10.8 x 6.3 x 6.6 cm, left 11.9 x 5.6 x 6.3 cm. There is moderate bilateral renal cortical thinning. There is a 1 cm stone in the right kidney, nonobstructing. There is a 2.6 cm cyst right kidney and a 3.6 cm cyst left kidney. Urinary bladder is only partially distended. Urinary bladder wall appears mildly thickened but this is inconclusive in the a urinary bladder which is not completely distended. IMPRESSION: 1. Mild bilateral renal cortical thinning. It 2. Small cysts, one on each kidney, there is also a nonobstructing 1 cm stone right kidney. 3. No evidence of mass or hydronephrosis. 4. Urinary bladder only partially distended and not well visualized. DICTATED BY: DIANN RUBY MD DATE: 02/04/24 1102 ASSESSMENT: Acute renal failure Persistent right renal nephrolithiasis Nonresolving bilateral flank pain Hypernatremia Hypokalemia Ruled out acute heart failure exacerbation Underlying history of pulmonary hypertension on continuous O2 therapy as outpa tient MARIA TERESA Morbid obesity Hypertension Hyperlipidemia Chronic use of outpatient corticosteroids History of chronic back pain Rheumatoid arthritis History of chronic outpatient use of benzodiazepines PLAN: Labs, diagnostic, radiologic exams reviewed and interpreted by myself and supervising physician. We have reviewed external records in detail There is no need for renal replacement therapy at this time. Require close monitoring of renal function and electrolytes Order CBC, CMP, and electrolytes in am Continue with antibiotics Renal diabetic diet BiPAP as necessary, for respiratory distress Monitor blood pressure adjust medication doses as needed Avoid hypotensive episodes May use Dilaudid 0.5 mg IV every 6 hours as needed for severe pain Monitor blood sugars Strict intake, output, and daily weight should be monitored Please renally adjust medications Avoid nephrotoxic and nonsteroidal drugs Avoid contrast if possible Will continue to monitor renal function, anemia, electrolytes Treatment plan discussed with patient Questions were answered We have discussed with the other team physicians in detail about the care plan We will continue to monitor the patient closely ATTESTATION BY PHYSICIAN I have seen and examined the patient. I reviewed the documentation, medical decision making, and treatment plan as noted by the mid-level provider above. I agree with the findings and plan of care. HELEN OBYD MD, [facility] Feb 10, 2024 13:26
[2024-02-10] MEDS: HYDROcodone/APAP 5/325 1 TAB TABLET PO PRN (16:57)
--- NOTE | 2024-02-10 17:00 | NUR ---
HH PT/DCP Update PT/spouse requesting to speak w CM. Discussed w them option of SNF if spouse not able to assist pt at home. PT was able to walk w physical therapy approx 40ft. PT mentions that she will need help w bathing/cooking/cleaning. She mentions that she is still having a lot of pain and is receiving IV Dilaudid. She is asking if Md will order Dilaudid [place]. Informed her that pt's are not sent home on IV narcotics. Per spouse if pt is released and pain is not controlled he will bring her right back. [employer] Jail[employer] informed of above.
[2024-02-11] VITALS (10 sets, daily range): BP systolic 95–149; BP diastolic 55–83; PULSE 78–94; RESP 16–21; TEMP 98–98.7; O2SAT 92–98
[2024-02-11] MEDS: LIDOCAINE 5% TOPICAL PATCH TP ONE (00:55)
[2024-02-11 04:06] LABS: BASOPHILS # (AUTO) 0.01 K/uL (0.00-0.20); BASOPHILS % (AUTO) 0.1 % (0.0-5.0); EOSINOPHILS # (AUTO) 0.01 K/uL (0.00-0.70); EOSINOPHILS % (AUTO) 0.1 % (0.0-8.0); HEMATOCRIT 34.8 % (36-48); IMMATURE GRANULOCYTE ABSOLUTE 0.03 K/uL (0-1); LYMPHOCYTES # (AUTO) 1.7 K/uL (1.0-4.8); LYMPHOCYTES % (AUTO) 25.2 % (21.0-51.0); MEAN CORPUSCULAR HEMOGLOBIN 28.2 pg (27.0-33.0); MEAN CORPUSCULAR HGB CONC 30.5 g/dL (32.0-36.0); MEAN CORPUSCULAR VOLUME 92.6 fL (79-99); MONOCYTES # (AUTO) 0.5 K/uL (0.1-1.0); MONOCYTES % (AUTO) 7.7 % (3.0-13.0); NEUTROPHILS # (AUTO) 4.5 K/uL (1.8-7.7); NEUTROPHILS % (AUTO) 66.5 % (40.0-77.0); PLATELET COUNT (AUTO) 229 K/uL (130-400); RED BLOOD CELL COUNT(AUTO) 3.76 MIL/uL (4.00-5.50); RED CELL DISTRIBUTION WIDTH 13.4 % (11.0-15.5); WHITE BLOOD COUNT (AUTO) 6.7 K/uL (4.8-10.8)
[2024-02-11 04:36] LABS: ALBUMIN 2.8 g/dL (3.5-5.0); BILIRUBIN,TOTAL 0.3 mg/dL (0.2-1.0); CREATININE 1.1 mg/dL (0.5-1.0); MAGNESIUM 1.4 mg/dL (1.80-2.40); POTASSIUM 3.6 mmol/L (3.5-5.1); TOTAL PROTEIN, SERUM 6.3 g/dL (6.0-8.3)
--- NOTE | 2024-02-11 09:37 | PN ---
FOLLOWUP PROGRESS NOTE SUBJECTIVE: A 63-year-old female initially presented to the hospital, found to have obstructive uropathy. The patient underwent nephrostomy tube placement. The patient's creatinine has greatly improved and she is being seen as a followup visit for all of the above. REVIEW OF SYSTEMS: CONSTITUTIONAL: Complained of the pain. HEENT: No change in vision. No change in hearing. CARDIOVASCULAR: There is no current chest pain or palpitations. PULMONARY: Chronic shortness of breath. GASTROINTESTINAL: He is tolerating diet. MUSCULOSKELETAL: Complains of weakness. PHYSICAL EXAMINATION:. VITAL SIGNS: Blood pressure 129/63, pulse in the 80s. GENERAL: Chronically ill female, obese, lying in bed, on medical floor. HEENT: Head is atraumatic. Pupils equal, roving to light. Oropharynx is without exudate. Nares clear. NECK: There is no JVP, no thyromegaly. CARDIOVASCULAR: Regular. There is no S3, S4 gallop. LUNGS: Coarse with equal thoracic movement. ABDOMEN: Soft, nondistended, nontender. EXTREMITIES: No clubbing, no cyanosis. NEUROLOGIC: She is awake. She is alert. LABORATORY DATA: Hemoglobin 10, hematocrit 34. BUN 17, creatinine 1. IMPRESSION: * Renal dysfunction. * Obstructive uropathy, status post nephrostomy tube placement. * Sleep apnea. * Hypertension. PLAN: The patient's creatinine has stabilized status post the procedure. The patient is being set up by medical social consultant for her home health. Once the patient is discharged, the patient can follow up in the Renal [facility] and we will continue to follow the patient closely. TID: [id number] RECEIPT: [id number]
--- NOTE | 2024-02-11 11:23 | PN ---
[facility] PROGRESS NOTE Date of Service: Feb 11, 2024 Time of Service: 11:12 SUBJECTIVE:- The patient is a 63-year-old female with a past medical history of hypertension, type 2 diabetes mellitus, pulmonary hypertension on continuous O2 at home, congestive heart failure, morbid obesity with BMI 48.4 kg/m2, obstructive sleep apnea uses CPAP at home, rheumatoid arthritis on chronic steroids and Humira injections, chronic back pain presented to emergency department at [facility] [place] yesterday for the evaluation of the bilateral flank pain of the past 2 weeks. She had an ER visit on 01/20 with the similar complaints were CT abdomen and pelvis without contrast was done which showed 6 mm stone in the proximal right ureter with no hydronephrosis. She was treated with hydrocodone and Flomax and was told to follow urologist outpatient. She did not follow the urologist and continues to have a persistent pain along with a cloudy appearance of urine. * She follows Dr. Ribera cardiology as outpatient for CHF, and due to bilateral lower extremity edema, he increase the dose of Lasix to 40 mg b.i.d. * She was recently diagnosed with pulmonary hypertension and following Dr. Carrillo and has been on oxygen therapy at home. She reported 40 lb weight gain over last several months and reports having significant bilateral lower extremity edema. * She also sees a director pharmacology for rheumatoid arthritis and has been on chron ic steroids with prednisone 30 mg daily and Humira injections. On presentation, significant labs for sodium of 147, potassium 3.2, creatinine 1.6, BNP normal of 16. Creatinine on 01/20 was 1.1. Renal ultrasound showed small cyst, once on each kidney and nonobstructive 1 cm stone in the right kidney, no evidence of mass or hydronephrosis. Urinalysis showed cloudy appearance, trace occult blood, small leukocyte esterase, RBCs 6-10, WBC 2-5, urine squamous epithelial cells moderate and few uric acid crystals. Venous Doppler for negative for any evidences of thrombosis. Cardiology consult was made due to underlying heart failure and pulmonary hypertension, urology and nephrology consult was made due to persistent nephrolithiasis. She was admitted for the management of ANDREA on CKD, concern for volume overload, persistent right nephrolithiasis developing UTI. 02/05/24- The patient was examined today, with family at bedside. She is lying on the bed, does not seem to be in distress, however is complaining about the pelvic pain. Her vitals have been nonsignificant except slightly tachypneic respiratory rate from 22-24. She has been on 2 L of nasal cannula * Per Cardiology note, the patient has a mild hypertension and the recommendations were made to continue diltiazem. For chronic diastolic heart failure continue IV diuretics. She also has a bilateral lower extremity edema suspected to be May-Thurner syndrome. * Per Urology note, the patient needs a right nephrostomy tube replacement. The procedure was supposed to happened last night after CT scan however the patient did not go for CT scan yesterday because she feels claustrophobic and needs anxiolytics before the procedure which she did not receive yesterday. No follow up was done, CT scan was canceled however and was done today * Per nephrology, she was started with 100 cc/hour IV fluids, and need further workup for possible iron-deficiency anemia. Labs: Sodium 146, potassium 3.4, carbon dioxide 38, BUN 26, creatinine went up to 1.7 from 1.6, GFR 34, normal liver enzymes, albumin 3.0. Assessment and plan discussed below. 02/06/24- The patient was examined today, with family on the bedside. She has been on morphine, however complaining of still excruciating pain, 11/02 at present. The patient was supposed to go for right nephrostomy tube placement however per Dr. Arevalo and the radiologist conversations, she will be first going for IVP with diuresis to evaluate the intensity or severity of hydronephrosis. Based on that, nephrostomy tube placement decision will be made. Labs: Sodium 145, potassium 3.2, BUN went up to 36 from 6, creatinine went up to 2.3 From 1.7, GFR went down to 23 from 34. Due to worsening of renal functions, the touch up worker discontinued Bumex. Also Dr. Ribera does not think the patient should be on isosorbide dinitrate, metoprolol. She has mild pulmonary hypertension and he also does not think diltiazem is the first-line medication without underlying AFib. He thinks causes of bilateral edema is due to May-Thurner syndrome which can be managed inpatient or outpatient after improvement in renal functions. Recommendations will be followed. Further assessment and plan discussed below. 02/07/24: The patient was examined today, with the family on the bedside. She has been on Dilaudid 1 mg Q4 since yesterday. Pain is somewhat manageable with the Dilaudid. IVP with Lasix study yesterday showed absence of excretion on the right consistent with a high-grade obstruction in the right proximal kidney with normal uptake and excretion on the left. She denies any shortness of breath, chest pain, difficulty in urination or any other symptoms. She remains afebrile, however had few episodes of tachycardia in the blood pressure is running on the softer side with SBP is in 100 and diastolic in 70s she has been on and off to the nasal cannula. She has 3+ bilateral pitting edema. Labs: WBCs went up to 13.2 From 10.1, sodium 141, potassium went down to 3.0 from 3.2, chloride 98, BUN went down to 34 from 36, went up to 2.4 From 2.3. We will give 40 mg IV Lasix today. She is going for the nephrostomy tube placement around 3:00 p.m. today. Further assessment and plan discussed below. 02/08/24: The patient was sent for nephrostomy tube placement during the visit. Family was available in the room. Updates were collected from the nurse. She has been in excruciating pain requiring Dilaudid Q4. Pain is somewhat manageable with it. Despite of no vomiting or diarrheal episodes, patient's potassium has remained low. We will monitor K and replace per protocol. Kidney functions are improving. She has been on and off the nasal cannula and using CPAP at night. Labs: Potassium went down to 2.9 from 3.0, BUN went down to 26 from 34, Creatinine went down to 1.5 from 2.4, GFR 39, Hemoglobin 10.5. Evaluate the patient post nephrostomy tube insertion. Further assessment and plan as discussed below 02/10/24 patient is seen and examined with attending. Reviewed chart reviewed medications patient continues on Dilaudid every4 hours discharge planning were be changed to p.o. Conway one tab every 4 hours. Patient is requesting home health services this we will need to be arranged by PCP. is concerned that she will continue with pain at home and we will bring her back. She has been on Dilaudid here patient refused rehab. Physical therapy continues to work with patient. 02/11/24: Patient was seen this morning at bedside. The patient was accompanied by the spouse. The patient states that she is still in pain, and that the Narco she is being given is not managing her pain. The patient states her pain is a 10/10 on the pain scale, and that she feels the most pain in her kidneys.The patient states she has started physical therapy this weekend. We discussed the importance of exercising caution in pain management. Tylenol-codeine will be added to her pain management routine. Once her pain is at a manageable level, she will be discharged home. This plan was discussed and approved by my attending physician. REVIEW OF SYSTEMS CONSTITUTIONAL: Denies fevers, chills, or night sweats. No unintentional weight loss reported. NEUROLOGICAL: Denies headache, amaurosis fugax, motor weakness, sensory deficit, vertigo/spinning sensation, gait abnormalities, or tremors. ENT: No hearing loss, otalgia, otorrhea, rhinitis, rhinorrhea, hoarseness, or sore throat. CARDIOVASCULAR: Lower extremity edema, PULMONARY: Denies any shortness of breath, cough, phlegm/sputum, hemoptysis, pleuritic chest pain. SLEEP: Denies morning headaches, daytime somnolence or napping. Denies difficulty falling asleep, staying asleep, waking from sleep. Denies knowledge of snoring. GASTROINTESTINAL: Nausea GENITOURINARY: Persistent Flank pain with dysuria ENDOCRINOLOGIC: Denies polyuria, polydipsia, polyphagia or heat/cold intolerances. HEMATOLOGIC: Denies thrombophilia/previous clots, or coagulopathy/bleeding disorders. ONCOLOGIC: Denies personal history of malignancy. DERMATOLOGIC: Denies rashes or pruritus. PSYCHIATRIC: Denies any suicidal or homicidal ideation. Denies hallucinations. PHYSICAL EXAM GENERAL APPEARANCE: The patient is awake, but appears sleepy, patient recently received IM dose of Benadryl, patient is obese NEUROLOGICAL: Cranial nerves II-XII grossly intact. Motor is 5/5 in bilateral upper and lower extremities proximal to distal. No sensory deficits. HEENT: Face is symmetric. Pupils are equal and reactive. Extraocular movements are intact. NECK: Supple. No JVD. No thyromegaly. No submental, submandibular, pre- /postauricular, occipital or supraclavicular lymphadenopathy. CHEST: Normal chest expansion. No Telemetry. LUNGS: minimal crackles noted at bilateral lung bases CARDIOVASCULAR: Regular. S1 and S2 normal. No appreciable rubs, murmurs or gallops. ABDOMEN: Soft, nontender, and nondistended. There is no rebound, voluntary guarding, or rigidity. : Deferred. No Schuler. EXTREMITIES: Legs are swollen with 3+ pitting edema bilaterally SKIN: No skin breakdown. Vital Signs (last 8hr) Date Time Temp Pulse Resp B/P (MAP) Pulse Ox O2 Delivery O2 Flow Rate FiO2 02/11/24 08:06 98.2 88 18 129/63 98 Nasal Cannula 2.0 02/11/24 08:00 98 Nasal Cannula* 2 28 02/11/24 06:17 86 20 N/A Room Air 02/11/24 04:00 98.2 94 20 149/81 95 CPAP LABS: Laboratory: Test 02/11/24 05:06 02/11/24 03:32 02/10/24 05:03 Range/Units Whole Blood Glucose 149 H 70-110 MG/DL White Blood Count 6.7 4.8-10.8 K/uL Red Blood Count 3.76 L 4.00-5.50 MIL/uL Hemoglobin 10.6 L 12.0-16.0 g/dL Hematocrit 34.8 L 36-48 % Mean Corpuscular Volume 92.6 79-99 fL Mean Corpuscular Hemoglobin 28.2 27.0-33.0 pg Mean Corpuscular Hemoglobin Concent 30.5 L 32.0-36.0 g/dL Red Cell Distribution Width 13.4 11.0-15.5 % Platelet Count 229 130-400 K/uL Mean Platelet Volume 9.9 7.5-10.5 fL Immature Granulocyte % (Auto) 0.4 0-1 % Neutrophils (%) (Auto) 66.5 40.0-77.0 % Lymphocytes (%) (Auto) 25.2 21.0-51.0 % Monocytes (%) (Auto) 7.7 3.0-13.0 % Eosinophils (%) (Auto) 0.1 0.0-8.0 % Basophils (%) (Auto) 0.1 0.0-5.0 % Neutrophils # (Auto) 4.5 1.8-7.7 K/uL Lymphocytes # (Auto) 1.7 1.0-4.8 K/uL Monocytes # (Auto) 0.5 0.1-1.0 K/uL Eosinophils # (Auto) 0.01 0.00-0.70 K/uL Basophils # (Auto) 0.01 0.00-0.20 K/uL Absolute Immature Granulocyte (auto 0.03 0-1 K/uL Nucleated Red Blood Cells 0.0 0.0-0.19 % Sodium Level 144 136-145 mmol/L Potassium Level 3.6 3.5-5.1 mmol/L Chloride Level 105 101-111 mmol/L Carbon Dioxide Level 33 H 21-32 mmol/L Blood Urea Nitrogen 17 7-18 mg/dL Creatinine 1.1 H 0.5-1.0 mg/dL Glomerular Filtration Rate Calc 57 >90 mL/min Random Glucose 158 H 70-105 mg/dL Total Calcium 8.9 8.5-10.1 mg/dL Magnesium Level 1.40 L 1.80-2.40 mg/dL Total Bilirubin 0.3 0.2-1.0 mg/dL Aspartate Amino Transf (AST/SGOT) 19 10-37 U/L Alanine Aminotransferase (ALT/SGPT) 40 12-78 U/L Alkaline Phosphatase 74 50-136 U/L Total Protein 6.3 6.0-8.3 g/dL Albumin 2.8 L 3.5-5.0 g/dL Phosphorus Level 2.6 2.5-4.9 mg/dL Current Medications Medications (Trade) Dose Ordered Sig/Ashanti Route PRN Reason Start Time Stop Time Status Last Admin Dose Admin Acetaminophen (TYLenol 325MG TAB) 650 mg Q6H PRN PO MILD PAIN (1-3) 02/04/24 12:30 03/05/24 12:29 Acetaminophen/ Hydrocodone Bitart (NORco 5/325MG) 1 tab Q4H PRN PO MODERATE PAIN (4-6) 02/10/24 13:00 02/15/24 12:59 02/11/24 10:10 1 TAB Acetazolamide Sodium (DIAmox 500MG INJ) 500 mg DAILY IV 02/04/24 13:30 02/07/24 13:29 DC 02/07/24 13:45 500 MG Albuterol (DUOneb) 1 udvial Q6H PRN IH SHORTNESS OF BREATH 02/04/24 12:30 03/05/24 12:29 Aspirin (Aspirin 81mg Chew Tab) 81 mg Q24H PO 02/04/24 12:30 03/05/24 12:29 02/10/24 11:38 81 MG Atorvastatin Calcium (LIPItor 10MG) 10 mg DAILY PO 02/05/24 09:00 02/08/24 13:21 DC Atorvastatin Calcium (LIPItor 10MG) 10 mg HS PO 02/08/24 21:00 03/06/24 08:59 02/10/24 20:16 10 MG Bumetanide (Bumex 1mg Vial) 1 mg Q8H IVP 02/04/24 13:30 02/06/24 07:07 DC 02/06/24 05:32 1 MG Bupropion HCl (WellBUTrin SR 150MG) 150 mg DAILY PO 02/05/24 09:00 03/06/24 08:59 02/11/24 08:53 150 MG Ceftriaxone Sodium (ROCEphine 1G INJ) 1 gm Q12H IVPB 02/04/24 12:00 02/14/24 11:59 02/11/24 00:55 1 GM Cetirizine HCl (ZYRtec 5 MG TABLET) 10 mg Q24H PO 02/04/24 13:00 03/05/24 12:59 02/10/24 11:37 10 MG Clonazepam (clonazePAM 0.5 mg) 0.5 mg HSPRN PRN PO ANXIETY/AGITATION 02/04/24 15:30 03/05/24 15:29 02/10/24 20:16 0.5 MG Diltiazem HCl (CARDIzem 120MG CD) 120 mg Q24H PO 02/04/24 12:30 02/06/24 07:23 DC 02/05/24 13:11 120 MG Furosemide (LASix 40MG TAB) 40 mg DAILY PO 02/10/24 09:00 03/11/24 08:59 02/11/24 08:53 40 MG Heparin Sodium (Porcine) (HEParin 5,000 UNIT VIAL) 5,000 unit Q8H SQ 02/07/24 22:00 03/08/24 21:59 02/11/24 06:03 5,000 UNIT Hydromorphone HCl (DiLAUDid 1MG INJ) 1 mg Q4H PRN IVP SEVERE PAIN (7-10) 02/06/24 12:30 02/10/24 12:54 DC 02/10/24 11:39 1 MG Insulin Human Regular (humuLIN R 100 UNIT/ML 3ML) INSULIN SLIDING SCAL... ACHS SQ 02/04/24 16:30 03/05/24 16:29 02/10/24 20:20 3 UNIT Isosorbide Mononitrate (Imdur 30mg Sr) 30 mg DAILY PO 02/04/24 15:00 02/06/24 07:07 DC 02/05/24 09:29 30 MG Losartan Potassium (CozAAR 50 mg TAB) 50 mg DAILY PO 02/10/24 09:00 03/11/24 08:59 02/11/24 08:54 50 MG Metoprolol Succinate (TopROL XL) 25 mg DAILY PO 02/04/24 15:00 02/06/24 07:23 DC 02/05/24 09:29 25 MG Miscellaneous Medication (Isosorbide Dinitrate ) 1 tab DAILY PO 02/05/24 09:00 02/04/24 17:04 DC Morphine Sulfate (morPHINE 2MG SYG) 2 mg Q6H PRN IVP SEVERE PAIN (7-10) 02/04/24 12:30 02/04/24 12:27 DC Morphine Sulfate (morPHINE 2MG SYG) 2 mg Q6H PRN IVP SEVERE PAIN (7-10) 02/04/24 12:30 02/06/24 12:11 DC 02/06/24 08:38 2 MG Ondansetron HCl (zoFRAN 4MG INJ) 4 mg Q6H PRN IVP NAUSEA/VOMITING 02/04/24 12:30 03/05/24 12:29 02/10/24 11:57 4 MG Pantoprazole Sodium (PROTonix 40MG TAB) 40 mg DAILY PO 02/05/24 09:00 03/06/24 08:59 02/11/24 08:54 40 MG Potassium Chloride 100 ml @ 100 mls/hr AD PRN IV POTASSIUM PROTOCOL 02/04/24 12:30 03/05/24 12:29 02/07/24 04:55 100 MLS/HR Potassium Chloride (K-Dur 10meq Sr Tab) 10 meq AD PRN PO POTASSIUM PROTOCOL 02/04/24 12:30 03/05/24 12:29 02/09/24 14:51 10 MEQ Potassium Chloride (K-Dur/Klor-Con 20meq) 20 meq QID PO 02/07/24 13:00 02/08/24 09:01 DC 02/07/24 20:55 20 MEQ Potassium Chloride (KCl 10% Elixir 20meq/15ml) 10 meq AD PRN PO POTASSIUM PROTOCOL 02/04/24 12:30 03/05/24 12:29 Prednisone (deltaSONE/ ORASONE 10MG) 30 mg Q24H PO 02/04/24 12:30 03/05/24 12:29 02/10/24 11:38 30 MG Pregabalin (LYRica 100MG) 100 mg DAILY PO 02/05/24 09:00 03/06/24 08:59 02/11/24 08:53 100 MG Sodium Chloride 1,000 ml @ 50 mls/hr Q20H IV 02/05/24 10:00 02/07/24 09:20 DC 02/06/24 16:07 50 MLS/HR DIAGNOSTICS / RADIOLOGY: [ ] ANDREA on CKD, POA Developing urinary tract infection, POA Persistent right renal nephrolithiasis, POA Nonresolving bilateral flank pain, POA Hypernatremia, POA Hypokalemia, POA Ruled out acute heart failure exacerbation, POA Underlying history of pulmonary hypertension on continuous O2 therapy as outpatient, POA MARIA TERESA, POA Morbid obesity with BMI 48.4 kg/m2, POA Hypertension, POA Hyperlipidemia, POA Chronic use of outpatient corticosteroids, POA History of chronic back pain, POA Rheumatoid arthritis, POA Possible May-Thurner Syndrome History of chronic outpatient use of benzodiazepines, POA Severe protein calorie malnutrition Normocytic anemia PLAN:- The Patient remains admitted on the medical surgical floor. ANDREA on CKD, POA Developing urinary tract infection, POA Persistent right renal nephrolithiasis, POA Nonresolving bilateral flank pain, POA Patient continues with diuretics 40 mg daily as per touch up worker's. Restrict oral fluid intake to 1.5 L a day. Discontinue Dilaudid started on Conway p.o. every 4 hours. Tylenol 3 will be added to her regimen. Plan to discharge patient once pain is under control. s/p post nephrostomy tube insertion. We will follow-up with Urology upon discharge. Ruled out acute heart failure exacerbation, POA Peripheral edema, POA Continue with acetazolamide 500 mg IV daily for 3 days Patient is on losartan 50 mg p.o. daily if blood pressure continues to elevate okay to increase 100 mg daily. And restart metoprolol Pulmonary hypertension Continue with supplemental O2 therapy to maintain oxygen saturation greater than 92% - home dependent already has oxygen at home. Obstructive sleep apnea Morbid obesity, BMI 48.4 kg per m2 Continue with CPAP at night for breathing support Rheumatoid arthritis Continue with prednisone 30 mg daily Possible May-Thurner Syndrome The patient will be needing of DAPT after the diagnosis of May-Thurner syndrome. Per Community Director, the patient needs to recover from ANDREA and Nephrostomy tube placement. Management of May- Thurner will be done as an outpatient by the touch up worker 2-4 weeks post discharge. Home medications were reconciled and resumed P.r.n. medications for nausea, pain Continue with insulin sliding scale for hyperglycemia Continue with the atorvastatin 10 mg, aspirin 81 mg Replace electrolytes per protocol Heparin 5000 IU Q8 for DVT prophylaxis. Incentive Spirometry to help with breathing AM labs: CBC, BMP Case discussed with the attending agrees with plan. CINDY SUMMERS MD Feb 11, 2024 11:23
--- NOTE | 2024-02-11 15:59 | NUR ---
CM Note: DAD CM received response from [facility], will follow patient and spouse at home for provider assistance. DC plan to home once MD clear. CM to continue to follow up.
--- NOTE | 2024-02-11 16:30 | NUR ---
PLACED 20G ON RIGHT ANTECUBITAL. PIV PATENT, NO ERYTHEMA OR EDEMA ON SURROUNDING AREA.
[2024-02-11] MEDS: acetaMINOPHEN WITH coDEINE 1 TAB TAB PO PRN (17:35)
--- NOTE | 2024-02-11 18:11 | NUR ---
PATIENT REQUESTING TO HAVE IV LINE REMOVED. STATES IT IS BOTHERING HER AND WANTS IT OUT. EXPLAINED TO PATIENT SHE IS A VERY HARD STICK AND REQUIRES IV IN. PATIENT REQUESTING TO HAVE IV REMOVED BECAUSE SHE IS GOING HOME AND THAT SHE IS UNALE TO MOVE HER ARM TO EAT OR GO TO THE BATHROOM
[2024-02-12] VITALS (7 sets, daily range): BP systolic 123–150; BP diastolic 64–95; PULSE 58–96; RESP 16–22; TEMP 97.3–98.3; O2SAT 97–98
--- NOTE | 2024-02-12 02:24 | NUR ---
Back pain Patient reported back pain of 6/10 on pain scale. [place] 5/325mg tablet given by mouth at this time. Patient verbalized "Those don't work. Only the Tylenol #3 work". Will advise primary nurse of back pain.
--- NOTE | 2024-02-12 09:25 | PN ---
SUBJECTIVE: A 63-year-old female initially presented with obstructive uropathy. The patient underwent nephrostomy tube placement. The patient's acute renal failure is much improved. The patient is being seen by Case Management in regards to final disposition and the patient is being seen for all of the above. REVIEW OF SYSTEMS: GENERAL: She continues to complain of pain. HEENT: No change in vision. No change in hearing. CARDIOVASCULAR: No current chest pains or palpitations. PULMONARY: She has chronic shortness of breath. GASTROINTESTINAL: She is tolerating a diet. MUSCULOSKELETAL: As described above. PHYSICAL EXAMINATION: VITAL SIGNS: Blood pressure 150/83, pulse in the 80s. GENERAL: She is a chronically ill, obese female, lying in bed on the medical floor. HEENT: Head is atraumatic. Pupils equal, roving to light. Oropharynx is without exudate. Nares clear. NECK: There is no JVP. There is no thyromegaly, no mass. CARDIOVASCULAR: Regular. There is no S3, S4 gallop. LUNGS: Coarse with equal thoracic movement. ABDOMEN: Soft, nondistended, nontender. EXTREMITIES: Reveal no clubbing, no cyanosis. NEUROLOGIC: She is awake. She is alert. LABORATORY DATA: Hemoglobin 10, hematocrit 34. IMPRESSION: * Acute renal failure, improved. * Obstructive uropathy, status post nephrostomy tube placement. * Rheumatoid arthritis. * Hypertension. * Sleep apnea. PLAN: The patient's creatinine is much improved. The patient is being set up for home health by Case Management. Blood pressure is under adequate control. She remains with the nephrostomy tube in place and will follow up with Urology. We will continue to follow closely. Once the patient is discharged, she can follow up in the Renal Clinic. TID: [id number] RECEIPT: [id number]
--- NOTE | 2024-02-12 10:09 | PN ---
[facility] PROGRESS NOTE Date of Service: Feb 12, 2024 Time of Service: 10:05 SUBJECTIVE:- The patient is a 63-year-old female with a past medical history of hypertension, type 2 diabetes mellitus, pulmonary hypertension on continuous O2 at home, congestive heart failure, morbid obesity with BMI 48.4 kg/m2, obstructive sleep apnea uses CPAP at home, rheumatoid arthritis on chronic steroids and Humira injections, chronic back pain presented to emergency department at [facility] yesterday for the evaluation of the bilateral flank pain of the past 2 weeks. She had an ER visit on 01/20 with the similar complaints were CT abdomen and pelvis without contrast was done which showed 6 mm stone in the proximal right ureter with no hydronephrosis. She was treated with hydrocodone and Flomax and was told to follow urologist outpatient. She did not follow the urologist and continues to have a persistent pain along with a cloudy appearance of urine. * She follows Dr. Ribera cardiology as outpatient for CHF, and due to bilateral lower extremity edema, he increase the dose of Lasix to 40 mg b.i.d. * She was recently diagnosed with pulmonary hypertension and following Dr. Carrillo and has been on oxygen therapy at home. She reported 40 lb weight gain over last several months and reports having significant bilateral lower extremity edema. * She also sees a cosmetic sales advisor for rheumatoid arthritis and has been on chron ic steroids with prednisone 30 mg daily and Humira injections. On presentation, significant labs for sodium of 147, potassium 3.2, creatinine 1.6, BNP normal of 16. Creatinine on 01/20 was 1.1. Renal ultrasound showed small cyst, once on each kidney and nonobstructive 1 cm stone in the right kidney, no evidence of mass or hydronephrosis. Urinalysis showed cloudy appearance, trace occult blood, small leukocyte esterase, RBCs 6-10, WBC 2-5, urine squamous epithelial cells moderate and few uric acid crystals. Venous Doppler for negative for any evidences of thrombosis. Cardiology consult was made due to underlying heart failure and pulmonary hypertension, urology and nephrology consult was made due to persistent nephrolithiasis. She was admitted for the management of ANDREA on CKD, concern for volume overload, persistent right nephrolithiasis developing UTI. 02/05/24- The patient was examined today, with family at bedside. She is lying on the bed, does not seem to be in distress, however is complaining about the pelvic pain. Her vitals have been nonsignificant except slightly tachypneic respiratory rate from 22-24. She has been on 2 L of nasal cannula * Per Cardiology note, the patient has a mild hypertension and the recommendations were made to continue diltiazem. For chronic diastolic heart failure continue IV diuretics. She also has a bilateral lower extremity edema suspected to be May-Thurner syndrome. * Per Urology note, the patient needs a right nephrostomy tube replacement. The procedure was supposed to happened last night after CT scan however the patient did not go for CT scan yesterday because she feels claustrophobic and needs anxiolytics before the procedure which she did not receive yesterday. No follow up was done, CT scan was canceled however and was done today * Per nephrology, she was started with 100 cc/hour IV fluids, and need further workup for possible iron-deficiency anemia. Labs: Sodium 146, potassium 3.4, carbon dioxide 38, BUN 26, creatinine went up to 1.7 from 1.6, GFR 34, normal liver enzymes, albumin 3.0. Assessment and plan discussed below. 02/06/24- The patient was examined today, with family on the bedside. She has been on morphine, however complaining of still excruciating pain, 11/02 at present. The patient was supposed to go for right nephrostomy tube placement however per Dr. Arevalo and the radiologist conversations, she will be first going for IVP with diuresis to evaluate the intensity or severity of hydronephrosis. Based on that, nephrostomy tube placement decision will be made. Labs: Sodium 145, potassium 3.2, BUN went up to 36 from 6, creatinine went up to 2.3 From 1.7, GFR went down to 23 from 34. Due to worsening of renal functions, the international operations manager discontinued Bumex. Also Dr. Ribera does not think the patient should be on isosorbide dinitrate, metoprolol. She has mild pulmonary hypertension and he also does not think diltiazem is the first-line medication without underlying AFib. He thinks causes of bilateral edema is due to May-Thurner syndrome which can be managed inpatient or outpatient after improvement in renal functions. Recommendations will be followed. Further assessment and plan discussed below. 02/07/24: The patient was examined today, with the family on the bedside. She has been on Dilaudid 1 mg Q4 since yesterday. Pain is somewhat manageable with the Dilaudid. IVP with Lasix study yesterday showed absence of excretion on the right consistent with a high-grade obstruction in the right proximal kidney with normal uptake and excretion on the left. She denies any shortness of breath, chest pain, difficulty in urination or any other symptoms. She remains afebrile, however had few episodes of tachycardia in the blood pressure is running on the softer side with SBP is in 100 and diastolic in 70s she has been on and off to the nasal cannula. She has 3+ bilateral pitting edema. Labs: WBCs went up to 13.2 From 10.1, sodium 141, potassium went down to 3.0 from 3.2, chloride 98, BUN went down to 34 from 36, went up to 2.4 From 2.3. We will give 40 mg IV Lasix today. She is going for the nephrostomy tube placement around 3:00 p.m. today. Further assessment and plan discussed below. 02/08/24: The patient was sent for nephrostomy tube placement during the visit. Family was available in the room. Updates were collected from the nurse. She has been in excruciating pain requiring Dilaudid Q4. Pain is somewhat manageable with it. Despite of no vomiting or diarrheal episodes, patient's potassium has remained low. We will monitor K and replace per protocol. Kidney functions are improving. She has been on and off the nasal cannula and using CPAP at night. Labs: Potassium went down to 2.9 from 3.0, BUN went down to 26 from 34, Creatinine went down to 1.5 from 2.4, GFR 39, Hemoglobin 10.5. Evaluate the patient post nephrostomy tube insertion. Further assessment and plan as discussed below 02/10/24 patient is seen and examined with attending. Reviewed chart reviewed medications patient continues on Dilaudid every4 hours discharge planning were be changed to p.o. [place] one tab every 4 hours. Patient is requesting home health services this we will need to be arranged by PCP. is concerned that she will continue with pain at home and we will bring her back. She has been on Dilaudid here patient refused rehab. Physical therapy continues to work with patient. 02/11/24: Patient was seen this morning at bedside. The patient was accompanied by the spouse. The patient states that she is still in pain, and that the [place] she is being given is not managing her pain. The patient states her pain is a 10/10 on the pain scale, and that she feels the most pain in her kidneys.The patient states she has started physical therapy this weekend. We discussed the importance of exercising caution in pain management. Tylenol-codeine will be added to her pain management routine. Once her pain is at a manageable level, she will be discharged home. This plan was discussed and approved by my attending physician. 02/12/24: Patient was seen this morning at bedside. The patient states that her pain is managed well with the Tylenol 3. The patient denies chest pain, shortness of breath, nausea, vomiting, abdominal pain, fever, and chills. The patient complains of back pain, but the Tylenol 3 is helping manage her pain. The patients potassium is 2.8. Potassium protocol was started, will recheck her labs and then the patient will be free for discharge. REVIEW OF SYSTEMS CONSTITUTIONAL: Denies fevers, chills, or night sweats. No unintentional weight loss reported. NEUROLOGICAL: Denies headache, amaurosis fugax, motor weakness, sensory deficit, vertigo/spinning sensation, gait abnormalities, or tremors. ENT: No hearing loss, otalgia, otorrhea, rhinitis, rhinorrhea, hoarseness, or sore throat. CARDIOVASCULAR: Lower extremity edema PULMONARY: Denies any shortness of breath, cough, phlegm/sputum, hemoptysis, pleuritic chest pain. SLEEP: Denies morning headaches, daytime somnolence or napping. Denies difficulty falling asleep, staying asleep, waking from sleep. Denies knowledge of snoring. GASTROINTESTINAL: Denies nausea, vomiting, abdominal pain GENITOURINARY: Persistent Flank pain ENDOCRINOLOGIC: Denies polyuria, polydipsia, polyphagia or heat/cold int olerances. HEMATOLOGIC: Denies thrombophilia/previous clots, or coagulopathy/bleeding disorders. ONCOLOGIC: Denies personal history of malignancy. DERMATOLOGIC: Denies rashes or pruritus. PSYCHIATRIC: Denies any suicidal or homicidal ideation. Denies hallucinations. PHYSICAL EXAM GENERAL APPEARANCE: The patient is awake, but appears sleepy, patient recently received IM dose of Benadryl, patient is obese NEUROLOGICAL: Cranial nerves II-XII grossly intact. Motor is 5/5 in bilateral upper and lower extremities proximal to distal. No sensory deficits. HEENT: Face is symmetric. Pupils are equal and reactive. Extraocular movements are intact. NECK: Supple. No JVD. No thyromegaly. No submental, submandibular, pre- /postauricular, occipital or supraclavicular lymphadenopathy. CHEST: Normal chest expansion. No Telemetry. LUNGS: minimal crackles noted at bilateral lung bases CARDIOVASCULAR: Regular. S1 and S2 normal. No appreciable rubs, murmurs or gallops. ABDOMEN: Soft, nontender, and nondistended. There is no rebound, voluntary guarding, or rigidity. : Deferred. No Schuler. EXTREMITIES: Legs are swollen with 3+ pitting edema bilaterally SKIN: No skin breakdown. Vital Signs (last 8hr) Date Time Temp Pulse Resp B/P (MAP) Pulse Ox O2 Delivery O2 Flow Rate FiO2 02/12/24 09:00 98 Nasal Cannula* 2 28 02/12/24 08:11 98.2 84 22 150/83 98 Nasal Cannula 2.0 02/12/24 05:12 98.1 58 16 123/69 95 CPAP LABS: Laboratory: Test 02/12/24 05:29 02/11/24 03:32 Range/Units Whole Blood Glucose 107 70-110 MG/DL Bedside Glucose Comment Notified Nurse White Blood Count 6.7 4.8-10.8 K/uL Red Blood Count 3.76 L 4.00-5.50 MIL/uL Hemoglobin 10.6 L 12.0-16.0 g/dL Hematocrit 34.8 L 36-48 % Mean Corpuscular Volume 92.6 79-99 fL Mean Corpuscular Hemoglobin 28.2 27.0-33.0 pg Mean Corpuscular Hemoglobin Concent 30.5 L 32.0-36.0 g/dL Red Cell Distribution Width 13.4 11.0-15.5 % Platelet Count 229 130-400 K/uL Mean Platelet Volume 9.9 7.5-10.5 fL Immature Granulocyte % (Auto) 0.4 0-1 % Neutrophils (%) (Auto) 66.5 40.0-77.0 % Lymphocytes (%) (Auto) 25.2 21.0-51.0 % Monocytes (%) (Auto) 7.7 3.0-13.0 % Eosinophils (%) (Auto) 0.1 0.0-8.0 % Basophils (%) (Auto) 0.1 0.0-5.0 % Neutrophils # (Auto) 4.5 1.8-7.7 K/uL Lymphocytes # (Auto) 1.7 1.0-4.8 K/uL Monocytes # (Auto) 0.5 0.1-1.0 K/uL Eosinophils # (Auto) 0.01 0.00-0.70 K/uL Basophils # (Auto) 0.01 0.00-0.20 K/uL Absolute Immature Granulocyte (auto 0.03 0-1 K/uL Nucleated Red Blood Cells 0.0 0.0-0.19 % Sodium Level 144 136-145 mmol/L Potassium Level 3.6 3.5-5.1 mmol/L Chloride Level 105 101-111 mmol/L Carbon Dioxide Level 33 H 21-32 mmol/L Blood Urea Nitrogen 17 7-18 mg/dL Creatinine 1.1 H 0.5-1.0 mg/dL Glomerular Filtration Rate Calc 57 >90 mL/min Random Glucose 158 H 70-105 mg/dL Total Calcium 8.9 8.5-10.1 mg/dL Magnesium Level 1.40 L 1.80-2.40 mg/dL Total Bilirubin 0.3 0.2-1.0 mg/dL Aspartate Amino Transf (AST/SGOT) 19 10-37 U/L Alanine Aminotransferase (ALT/SGPT) 40 12-78 U/L Alkaline Phosphatase 74 50-136 U/L Total Protein 6.3 6.0-8.3 g/dL Albumin 2.8 L 3.5-5.0 g/dL Current Medications Medications (Trade) Dose Ordered Sig/Ashanti Route PRN Reason Start Time Stop Time Status Last Admin Dose Admin Acetaminophen (TYLenol 325MG TAB) 650 mg Q6H PRN PO MILD PAIN (1-3) 02/04/24 12:30 03/05/24 12:29 Acetaminophen/ Codeine Phosphate (TYLenol-coDEINE TAB) 1 tab Q4H PRN PO MODERATE PAIN (4-6) 02/11/24 14:00 03/12/24 13:59 02/12/24 05:55 1 TAB Acetaminophen/ Hydrocodone Bitart (NORco 5/325MG) 1 tab Q4H PRN PO MODERATE PAIN (4-6) 02/10/24 13:00 02/15/24 12:59 02/12/24 08:52 1 TAB Acetazolamide Sodium (DIAmox 500MG INJ) 500 mg DAILY IV 02/04/24 13:30 02/07/24 13:29 DC 02/07/24 13:45 500 MG Albuterol (DUOneb) 1 udvial Q6H PRN IH SHORTNESS OF BREATH 02/04/24 12:30 03/05/24 12:29 Aspirin (Aspirin 81mg Chew Tab) 81 mg Q24H PO 02/04/24 12:30 03/05/24 12:29 02/11/24 13:22 81 MG Atorvastatin Calcium (LIPItor 10MG) 10 mg DAILY PO 02/05/24 09:00 02/08/24 13:21 DC Atorvastatin Calcium (LIPItor 10MG) 10 mg HS PO 02/08/24 21:00 03/06/24 08:59 02/11/24 21:00 10 MG Bumetanide (Bumex 1mg Vial) 1 mg Q8H IVP 02/04/24 13:30 02/06/24 07:07 DC 02/06/24 05:32 1 MG Bupropion HCl (WellBUTrin SR 150MG) 150 mg DAILY PO 02/05/24 09:00 03/06/24 08:59 02/12/24 08:51 150 MG Ceftriaxone Sodium (ROCEphine 1G INJ) 1 gm Q12H IVPB 02/04/24 12:00 02/14/24 11:59 02/11/24 23:53 1 GM Cetirizine HCl (ZYRtec 5 MG TABLET) 10 mg Q24H PO 02/04/24 13:00 03/05/24 12:59 02/11/24 13:22 10 MG Clonazepam (clonazePAM 0.5 mg) 0.5 mg HSPRN PRN PO ANXIETY/AGITATION 02/04/24 15:30 03/05/24 15:29 02/10/24 20:16 0.5 MG Diltiazem HCl (CARDIzem 120MG CD) 120 mg Q24H PO 02/04/24 12:30 02/06/24 07:23 DC 02/05/24 13:11 120 MG Furosemide (LASix 40MG TAB) 40 mg DAILY PO 02/10/24 09:00 03/11/24 08:59 02/12/24 08:51 40 MG Heparin Sodium (Porcine) (HEParin 5,000 UNIT VIAL) 5,000 unit Q8H SQ 02/07/24 22:00 03/08/24 21:59 02/12/24 05:44 5,000 UNIT Hydromorphone HCl (DiLAUDid 1MG INJ) 1 mg Q4H PRN IVP SEVERE PAIN (7-10) 02/06/24 12:30 02/10/24 12:54 DC 02/10/24 11:39 1 MG Insulin Human Regular (humuLIN R 100 UNIT/ML 3ML) INSULIN SLIDING SCAL... ACHS SQ 02/04/24 16:30 03/05/24 16:29 02/11/24 20:36 3 UNIT Isosorbide Mononitrate (Imdur 30mg Sr) 30 mg DAILY PO 02/04/24 15:00 02/06/24 07:07 DC 02/05/24 09:29 30 MG Losartan Potassium (CozAAR 50 mg TAB) 50 mg DAILY PO 02/10/24 09:00 03/11/24 08:59 02/12/24 08:51 50 MG Metoprolol Succinate (TopROL XL) 25 mg DAILY PO 02/04/24 15:00 02/06/24 07:23 DC 02/05/24 09:29 25 MG Miscellaneous Medication (Isosorbide Dinitrate ) 1 tab DAILY PO 02/05/24 09:00 02/04/24 17:04 DC Morphine Sulfate (morPHINE 2MG SYG) 2 mg Q6H PRN IVP SEVERE PAIN (7-10) 02/04/24 12:30 02/04/24 12:27 DC Morphine Sulfate (morPHINE 2MG SYG) 2 mg Q6H PRN IVP SEVERE PAIN (7-10) 02/04/24 12:30 02/06/24 12:11 DC 02/06/24 08:38 2 MG Ondansetron HCl (zoFRAN 4MG INJ) 4 mg Q6H PRN IVP NAUSEA/VOMITING 02/04/24 12:30 03/05/24 12:29 02/10/24 11:57 4 MG Pantoprazole Sodium (PROTonix 40MG TAB) 40 mg DAILY PO 02/05/24 09:00 03/06/24 08:59 02/12/24 08:51 40 MG Potassium Chloride 100 ml @ 100 mls/hr AD PRN IV POTASSIUM PROTOCOL 02/04/24 12:30 03/05/24 12:29 02/07/24 04:55 100 MLS/HR Potassium Chloride (K-Dur 10meq Sr Tab) 10 meq AD PRN PO POTASSIUM PROTOCOL 02/04/24 12:30 03/05/24 12:29 02/09/24 14:51 10 MEQ Potassium Chloride (K-Dur/Klor-Con 20meq) 20 meq QID PO 02/07/24 13:00 02/08/24 09:01 DC 02/07/24 20:55 20 MEQ Potassium Chloride (KCl 10% Elixir 20meq/15ml) 10 meq AD PRN PO POTASSIUM PROTOCOL 02/04/24 12:30 03/05/24 12:29 Prednisone (deltaSONE/ ORASONE 10MG) 30 mg Q24H PO 02/04/24 12:30 03/05/24 12:29 02/11/24 13:22 30 MG Pregabalin (LYRica 100MG) 100 mg DAILY PO 02/05/24 09:00 03/06/24 08:59 02/12/24 08:51 100 MG Sodium Chloride 1,000 ml @ 50 mls/hr Q20H IV 02/05/24 10:00 02/07/24 09:20 DC 02/06/24 16:07 50 MLS/HR DIAGNOSTICS / RADIOLOGY: [ ] ANDREA on CKD, POA Developing urinary tract infection, POA Persistent right renal nephrolithiasis, POA Nonresolving bilateral flank pain, POA Hypernatremia, POA Hypokalemia, POA Ruled out acute heart failure exacerbation, POA Underlying history of pulmonary hypertension on continuous O2 therapy as outpatient, POA MARIA TERESA, POA Morbid obesity with BMI 48.4 kg/m2, POA Hypertension, POA Hyperlipidemia, POA Chronic use of outpatient corticosteroids, POA History of chronic back pain, POA Rheumatoid arthritis, POA Possible May-Thurner Syndrome History of chronic outpatient use of benzodiazepines, POA Severe protein calorie malnutrition Normocytic anemia PLAN:- The Patient remains admitted on the medical surgical floor. ANDREA on CKD, POA Developing urinary tract infection, POA Persistent right renal nephrolithiasis, POA Nonresolving bilateral flank pain, POA Patient continues with diuretics 40 mg daily as per international operations manager's. Restrict oral fluid intake to 1.5 L a day. Discontinue Dilaudid started on [place] p.o. every 4 hours. Tylenol 3 will be added to her regimen. Plan to discharge patient once pain is under control. s/p post nephrostomy tube insertion. We will follow-up with Urology upon discharge. Ruled out acute heart failure exacerbation, POA Peripheral edema, POA Continue with acetazolamide 500 mg IV daily for 3 days Patient is on losartan 50 mg p.o. daily if blood pressure continues to elevate okay to increase 100 mg daily. And restart metoprolol. Patient to follow up with cardiology upon discharge. Pulmonary hypertension Continue with supplemental O2 therapy to maintain oxygen saturation greater than 92% - home dependent already has oxygen at home. Obstructive sleep apnea Morbid obesity, BMI 48.4 kg per m2 Continue with CPAP at night for breathing support Rheumatoid arthritis Continue with prednisone 30 mg daily Possible May-Thurner Syndrome The patient will be needing of DAPT after the diagnosis of May-Thurner syndrome. Per Nursing Teacher, the patient needs to recover from ANDREA and Nephrostomy tube placement. Management of May- Thurner will be done as an outpatient by the international operations manager 2-4 weeks post discharge. Home medications were reconciled and resumed P.r.n. medications for nausea, pain Continue with insulin sliding scale for hyperglycemia Continue with the atorvastatin 10 mg, aspirin 81 mg Replace electrolytes per protocol Heparin 5000 IU Q8 for DVT prophylaxis. Incentive Spirometry to help with breathing AM labs: CBC, BMP Case discussed with the attending agrees with plan. CINDY SUMMERS MD Feb 12, 2024 10:09
[2024-02-12 10:33] LABS: BASOPHILS # (AUTO) 0.02 K/uL (0.00-0.20); BASOPHILS % (AUTO) 0.2 % (0.0-5.0); EOSINOPHILS # (AUTO) 0.12 K/uL (0.00-0.70); EOSINOPHILS % (AUTO) 1.3 % (0.0-8.0); HEMATOCRIT 34.3 % (36-48); IMMATURE GRANULOCYTE ABSOLUTE 0.08 K/uL (0-1); LYMPHOCYTES # (AUTO) 3.3 K/uL (1.0-4.8); LYMPHOCYTES % (AUTO) 36.8 % (21.0-51.0); MEAN CORPUSCULAR HEMOGLOBIN 27.8 pg (27.0-33.0); MEAN CORPUSCULAR HGB CONC 30.6 g/dL (32.0-36.0); MEAN CORPUSCULAR VOLUME 90.7 fL (79-99); NEUTROPHILS # (AUTO) 4.5 K/uL (1.8-7.7); NEUTROPHILS % (AUTO) 49.8 % (40.0-77.0); PLATELET COUNT (AUTO) 248 K/uL (130-400); RED BLOOD CELL COUNT(AUTO) 3.78 MIL/uL (4.00-5.50); RED CELL DISTRIBUTION WIDTH 13.6 % (11.0-15.5); WHITE BLOOD COUNT (AUTO) 9.1 K/uL (4.8-10.8)
[2024-02-12 10:53] LABS: BILIRUBIN,TOTAL 0.3 mg/dL (0.2-1.0); CREATININE 1.2 mg/dL (0.5-1.0); TOTAL PROTEIN, SERUM 6.2 g/dL (6.0-8.3)
[2024-02-12 11:07] LABS: POTASSIUM 2.8 mmol/L (3.5-5.1)
--- NOTE | 2024-02-12 14:47 | DS ---
Discharge Summary Hospital Course Summary: The patient is a 63 year old female with a past medical history of hypertension, type 2 diabetes mellitus, pulmonary hypertension on continuous O2 at home, congestive heart failure, morbid obesity with BMI 48.4 kg/m2, obstructive sleep apnea with CPAP at home, rheumatoid arthritis on chronic steroids and Humira injections, and chronic back pain who presented to [facility] with bilateral flank pain. The patient was admitted for management of acute kidney injury, concern for volume overload, and persistent right nephrolithiasis developing UTI. Urology was consulted, and a nephrostomy tube insertion was scheduled. The nephrostomy tube was placed, and it was recommended that the patient visit the urologist upon discharge for definitive therapy of her obstructing right kidney stone. Cardiology was consulted for pulmonary hypertension, Congestive Heart Failure, and Bilateral Lower Extremity edema. An echocardiogram was preformed to assess heart function. The chronic bilateral lower edema is suspected to be multifactorial, related to her venous insufficiency and May-Thurner syndrome, which will be evaluated and treated outpatient with Dr. Ribera. Cardiology determined that there was no evidence of acute diastolic heart failure decompensation, and no evidence of pulmonary hypertension. Nephrology was consulted for the patients acute on chronic renal failure. Renal function improved and stabilized after the nephrostomy tube placement, IV hydration, and aggressive electrolyte repletion. Bench Worker Apprentice(s): Cardiology, Nephrology, Urology Procedure(s): [address] [address] IMAGING REPORT Signed PATIENT: STEW LAKE MR#: [id number] : 1960 SEX: F AGE: 63 LOCATION: [facility] ORDER 1007 STATUS: [facility] REPORT#: [id number] SERVICE 1007 REASON: bilateral flank pain ORDERING PHYSICIAN: RENATA DE ANDA MD PROCEDURE: RENAL - US RENAL SONOGRAM US RENAL SONOGRAM REASON: bilateral flank pain COMPARISON: None TECHNIQUE: Renal and bladder sonogram was performed. FINDINGS: Right kidney is 10.8 x 6.3 x 6.6 cm, left 11.9 x 5.6 x 6.3 cm. There is moderate bilateral renal cortical thinning. There is a 1 cm stone in the right kidney, nonobstructing. There is a 2.6 cm cyst right kidney and a 3.6 cm cyst left kidney. Urinary bladder is only partially distended. Urinary bladder wall appears mildly thickened but this is inconclusive in the a urinary bladder which is not completely distended. IMPRESSION: 1. Mild bilateral renal cortical thinning. It 2. Small cysts, one on each kidney, there is also a nonobstructing 1 cm stone right kidney. 3. No evidence of mass or hydronephrosis. 4. Urinary bladder only partially distended and not well visualized. DICTATED BY: DIANN RUBY MD DATE: 02/04/24 1102 ELECTRONICALLY SIGNED BY: DIANN RUBY MD DATE: 02/04/24 111[address] [place] [address] IMAGING REPORT Signed PATIENT: STEW LAKE MR#: [id number] : 1960 SEX: F AGE: 63 [facility] STATUS: ADM IN REPORT#: [id number] SERVICE 1200 REASON: significant bilateral lower extremity edema ORDERING PHYSICIAN: LOR PATRICIA MD PROCEDURE: VENOUS PAULETTE - US VENOUS DOPPLER BILATERAL US VENOUS DOPPLER BILATERAL REASON: significant bilateral lower extremity edema COMPARISON: None Technique: Bilateral venous doppler ultrasound was performed with spectral analysis and color flow imaging technique. FINDINGS: There is a normal appearance of the common femoral, deep femoral, the profunda femoris and popliteal veins. Proximal calf veins appear normal as well. There is normal response to compression and augmentation. There is no evidence of deep venous thrombosis. IMPRESSION: Normal bilateral lower extremity venous Doppler ultrasound. DICTATED BY: DIANN RUBY MD DATE: 02/04/24 1448 ELECTRONICALLY SIGNED BY: DIANN RUBY MD DATE: 02/04/24 [address] [id number] [place] [address] IMAGING REPORT Signed PATIENT: STEW LAKE MR#: [id number] : 1960 SEX: F AGE: 63 LOCATION: ED ORDER 1207 STATUS: REG ER REPORT#: [id number] SERVICE 1205 REASON: please assess for infltrates ORDERING PHYSICIAN: LOR PATRICIA MD PROCEDURE: CXR1VW - CHEST 1VW CHEST 1VW REASON: please assess for infltrates COMPARISON: 05/05/2021 FINDINGS: Single view of the chest was obtained. Lungs are clear. Heart size is normal. There is no pulmonary vascular congestion. Mediastinum and bony thorax appear unremarkable. IMPRESSION: 1. Normal single view chest x-ray. DICTATED BY: DIANN RUBY MD DATE: 02/04/241246 ELECTRONICALLY SIGNED BY: DIANN RUBY MD DATE: 02/04/241248 [address] [address] IMAGING REPORT Signed PATIENT: STEW LAKE MR#: [id number] : 1960 SEX: F AGE: 63 LOCATION: [facility]DH ORDER 1040 STATUS: ADM IN REPORT#: [id number] SERVICE 1130 REASON: Bilateral flank pain, Nephrolithiasis ORDERING PHYSICIAN: MINERVA TELLEZ MD PROCEDURE: ABD PEL WO - CT ABDOMEN/PELVIS W/O CONTRAST CT ABDOMEN/PELVIS W/O CONTRAST REASON: Bilateral flank pain, Nephrolithiasis COMPARISON: 02/21/2024 FINDINGS: Lung bases are clear. There are no focal liver lesions. The liver is not enlarged.. Spleen and pancreas appear unremarkable. There has been a previous cholecystectomy. There is mild to moderate right hydronephrosis. There is a 6 mm stone in the proximal right ureter at the level of the lower pole of the right kidney. There is an additional 2 mm nonobstructing stone in an upper pole calyx on the right and there are several very small stones lower pole calyx on the right as well. Left kidney appears unremarkable with the exception of a small cyst upper pole. Bowel loops appear unremarkable. This includes normal appearance of the appendix There is no evidence of free fluid or intraperitoneal air. There are no focal fluid collections. Aorta and retroperitoneum appear normal as do pelvic soft tissue structures. The anterior abdominal wall is intact. Osseous structures appear unremarkable. IMPRESSION: 1. 6 mm right ureteral stone at the level of the lower pole right kidney, there is mild to moderate right hydronephrosis. 2. There are several additional very small nonobstructing stones in the right kidney, there are small bilateral cysts as well. 3. Absent gallbladder. CT was performed with one or more following dose reduction techniques: automated exposure control, adjustment of the mA and kv according to patient's size, or use of a iterative reconstruction technique. DICTATED BY: DIANN RUBY MD DATE: 02/05/24 1239 ELECTRONICALLY SIGNED BY: DIANN RUBY MD DATE: 02/05/24 [address] [address] [place] [address] IMAGING REPORT Signed PATIENT: STEW LAKE MR#: [id number] : 1960 SEX: F AGE: 63 LOCATION: [facility] ORDER 1205 [facility] REPORT#: [id number] SERVICE 1200 REASON: hx of pulm htn, assess for heart failure, SHC to read ORDERING PHYSICIAN: LOR PATRICIA MD PROCEDURE: ECHO CMP - ECHO 2-D COMPLETE APPROVED REPORT EXAM: Two-dimensional and M-mode echocardiogram with Doppler and color Doppler. INDICATION ICD: pulmonary hypertension Heart Failure 2D Dimensions RVDd 3.7 cm LVEF(%) 63.7 (>50%) LVED Vol(simp.) 80.4 mL IVSd 1.2 (0.7-1.1cm) FS(%) 35 % LVES Vol(simp.) 30.3 mL LVDd 4.9 (3.8-5.6cm) LA (2D) 4.0 (1.6-4.0cm) LVEF(%, simp.) 62 % PWd 1.0 (0.7-1.1cm) Ao Root(2D) 3.1 (2.0-3.7cm) LA ESV INDEX (4CH) 21.70 mL/m2 IVSs 1.6 cm LVOT diam 2.4 (1.8-2.4cm) LA ESV INDEX (2CH) 21.30 mL/m2 LVDs 3.2 (2.5-4.0cm) LA ESV INDEX (BP) 23.70 mL/m2 PWs 1.6 cm Deformation Strain Apical 4 22.0 % Apical 2 24.0 % Apical 3 24.0 % Global Strain 23.0 % M-Mode Dimensions EPSS 0.6 cm LA (MM) 3.6 (1.6-4.0cm) Ao Root(MM) 3.6 (2.0-3.7cm) Aortic Valve AoV VTI 0.3 m Ao Mean GR 5.0 mmHg LVOT VTI 0.25 m CHRISTOPHER (VMAX) 3.5 cm2 CHRISTOPHER (VTI) 3.5 cm2 Mitral Valve MV E Vmax 94.6 cm/s DECEL Time 229 ms MV A Vmax 59.7 cm/s P 1/2 T 87 ms E/A ratio 1.6 MVA (PHT) 2.5 cm2 MR Max PG 51 mmHg TDI E/E' Medial 12.0 E/E' Lateral 9.8 Medial E' Peak V 7.90 cm/s Lateral E' Peak V 9.70 cm/s Pulmonary Valve PV Vmax 1.0 m/s PV Peak GR 4.1 mmHg Left Ventricle The left ventricle is normal size. GLS -23%. There is normal left ventricular wall thickness. Septal bounce is present. LVEF is55-60%. The left ventricular diastolic function is normal. Right Ventricle The right ventricle is normal size. The right ventricular systolic function is normal. Atria The left atrium size is normal. The right atrium size is normal. Aortic Valve The aortic valve is normal in structure. No aortic regurgitation is present. There is no aortic valvular stenosis. Mitral Valve The mitral valve is normal in structure. Trace mitral regurgitation. There is no mitral valve stenosis. Tricuspid Valve The tricuspid valve is normal in structure. There is no tricuspid valve re gurgitation noted. Pulmonic Valve The pulmonary valve is normal in structure. There is no pulmonic valvular regurgitation. Great Vessels The aortic root is normal in size. The IVC is dilated and collapses >50% with inspiration. Pericardium There is no pericardial effusion. Other Information Quality : Good Rhythm : NSR Conclusion LVEF is55-60%. Septal bounce is present. The left ventricular diastolic function is normal. Trace mitral regurgitation. Estiamted pulmonary pressure is within normal range DICTATED BY: ANA WALKER DO DATE: 02/05/24 0742 ELECTRONICALLY SIGNED BY: ANA WALKER DO DATE: 02/05/24 1426 [facility] [address] [place], [place] [id number] IMAGING REPORT Signed PATIENT: STEW LAKE MR#: [id number] : 1960 SEX: F AGE: 63 LOCATION: 4DH ORDER STATUS: ADM IN REPORT#: [id number] SERVICE 3 REASON: r/o right renal hydronephrosis ORDERING PHYSICIAN: HARSHA MEDEROS MD PROCEDURE: RENAL - US RENAL SONOGRAM US RENAL SONOGRAM REASON: r/o right renal hydronephrosis COMPARISON: None TECHNIQUE: Renal and bladder sonogram performed. FINDINGS: Right kidney is 10 x 5.6 x 6.4 cm, left 10.6 x 4.7 x 5.1 cm. There is a 2.6 cm cyst lower pole right kidney and a 3.1 cm cyst upper pole left kidney. There are no focal masses. There is mild hydronephrosis on the right. This is better seen on previous day's CT scan. There is no hydronephrosis on the left. IMPRESSION: 1. Mild right-sided hydronephrosis. 2. Small bilateral cysts. 3. Urinary bladder only partially distended and not well visualized. DICTATED BY: DIANN RUBY MD DATE: 02/06/24 125 ELECTRONICALLY SIGNED BY: DIANN RUBY MD DATE: 02/06/24 1257 [facility] [address] [place] [address] IMAGING REPORT Signed PATIENT: STEW LAKE MR#: [id number] : 1960 SEX: F AGE: 63 LOCATION: 4DH ORDER 1013 STATUS: ADM IN REPORT#: [id number] SERVICE 1010 REASON: R/O hydronephrosis ORDERING PHYSICIAN: HARSHA MEDEROS MD PROCEDURE: RENAL LASX - NM RENOGRAM W/ LASIX NM RENOGRAM W/ LASIX REASON: R/O hydronephrosis COMPARISON: None TECHNIQUE: Routine imaging protocol was performed following injection of 7.3 mCi technetium 99 M MAG3. 40 mg of Lasix was administered IV push 15 minutes into the exam. FINDINGS: Images show prompt the isotope uptake and excretion on the left. Left has a normal-appearing excretion curve is accentuated by Lasix. There is delayed isotope uptake on the right. There is gradually increasing activity curve on the right consistent with a high degree of obstruction, this is not significantly affected by Lasix. The T1 half following Lasix on the left is 12.6 minutes, within normal limits. The T1 half on the right cannot be calculated as the activity curve continues to rise rather than fall. Split function is 74.1% left and 25.9% right IMPRESSION: 1. Delayed nephrogram and absence of excretion on the right consistent with a high-grade obstruction in the right proximal kidney 2. Normal uptake and excretion on the left. DICTATED BY: DIANN RUBY MD DATE: 02/06/241635 ELECTRONICALLY SIGNED BY: DIANN RUBY MD DATE: 02/06/241641 [place] [address] IMAGING REPORT Signed PATIENT: STEW LAKE MR#: [id number] : 1960 SEX: F AGE: 63 LOCATION: 4DH ORDER 9 STATUS: ADM IN REPORT#: [id number] SERVICE 7 REASON: Leucocytosis, Tachycardia, rule out pneumonia ORDERING PHYSICIAN: MINERVA TELLEZ MD PROCEDURE: CXR1VW - CHEST 1VW CHEST 1VW REASON: Leucocytosis, Tachycardia, rule out pneumonia COMPARISON: 02/04/2024 FINDINGS: Single view of the chest was obtained. Lungs are clear. Heart size is normal. There is no pulmonary vascular congestion. Mediastinum and bony thorax appear unremarkable. IMPRESSION: 1. Normal single view chest x-ray. DICTATED BY: DIANN RUBY MD DATE: 02/07/24 105 ELECTRONICALLY SIGNED BY: DIANN RUBY MD DATE: 02/07/24 1100 RUN DATE: 02/05/24 [facility] PAGE 1 RUN TIME: 06 [address] [address], [place] [address] Department of Laboratories CLIA # [id number] Marshmallow Machine Operator: Mukesh Vallejo DO Specimen Report -------- ---- PATIENT: STEW LAKE ACCT: [id number] LOC: COUNT INCLUDES THE [facility] U: [id number] AGE/SX: 63/F ROOM: [facility] RE02/04/[address]: LOR PATRICIA MD : 1960 BED: 1 DIS: STATUS: ADM IN TLOC: SPEC: [id number] EYAL: 02/04/24 STATUS: COMP REQ: [id number] RECD: 02/04/[address] [facility] [address]: RENATA DE ANDA MD SOURCE: URINE CC ENTR: 02/04/24 [facility] DR: VINCE HASSAN MD [facility]: ORDERED: URINE CULTURE Procedure Result Daniela Date-Time URINE CULTURE Final 02/05/24-631 REPORT URINE >3 COLONY TYPES PRESENT MIXED UMA CONTAMINATION NO FURTHER STUDIES PENDING END OF REPORT Assessment/Plan: ANDREA on CKD, resolved Developing urinary tract infection, resolved Persistent right renal nephrolithiasis, resolved Nonresolving bilateral flank pain, resolved Hypernatremia, resolved Hypokalemia, resolved Ruled out acute heart failure exacerbation, resolved Underlying history of pulmonary hypertension on continuous O2 therapy as outpatient, resolved MARIA TERESA, POA Morbid obesity with BMI 48.4 kg/m2, POA Hypertension, POA Hyperlipidemia, POA Chronic use of outpatient corticosteroids, POA History of chronic back pain, resolved Rheumatoid arthritis, POA Possible May-Thurner Syndrome History of chronic outpatient use of benzodiazepines, POA Severe protein calorie malnutrition Normocytic anemia Discharge Instructions: FOLLOW UP APPOINTMENTS: Patient to follow up with press operator heavy duty Dr. Ribera in his clinic in 2-3 weeks upon discharge. Patient to follow up with rest room matron in 1-2 weeks upon discharge. Patient to follow up with urologist in 1-2 weeks upon discharge. Patient to follow up with primary care physician in 1 week upon discharge. PROCEDURES: Nephrostomy tube placement. IMAGING: Report attached to summary. MICROBIOLOGY: Report attached to summary. ACTIVITY: Ab ofe. HOME MEDICATIONS: Continued NEW MEDICATIONS: TEACHING: We reinforced the importance of compliance with follow up appointment and medication compliance. Emergency instructions: The patient was instructed to present to the nearest emergency department or call 911 should their symptoms return or worsen. Home Medications: Active Scripts Furosemide (Lasix 40Mg Tab) 40 Mg Tablet, 40 MG PO DAILY, #30 TAB Prov:CINDY SUMMERS MD 02/12/24 Hydrocodone/Acetaminophen (Hydrocodone-Acetamin 10-300 mg) 10 Mg-300 Mg Tablet, 1 TAB PO QIDP PRN for PAIN for 10 Days, #20 TAB 0 Refills Prov:JANNETTE TRUJILLO DO 01/21/24 Reported Medications Dulaglutide (Trulicity) 1.5 Mg/0.5 Ml Pen.injctr, 1.5 MG SQ DAILY 02/04/24 Adalimumab (Humira) 40 Mg/0.4 Ml Syringekit, 40 MG SQ DAILY 02/04/24 Aspirin (Aspirin) 81 Mg Tab.chew, 81 MG PO DAILY, TAB.CHEW 02/04/24 Omeprazole (Omeprazole) 20 Mg Tablet.dr, 1 TAB PO DAILY for 30 Days, #30 TAB 0 Refills 02/04/24 Isosorbide Dinitrate (Isosorbide Dinitrate) 30 Mg Tablet, 1 TAB PO DAILY for chest pain for 30 Days, #30 TAB 0 Refills 02/04/24 Losartan Potassium (Losartan Potassium) 25 Mg Tablet, 1 TAB PO DAILY for 30 Days, #30 TAB 0 Refills 02/04/24 Bupropion HCl (Wellbutrin Sr) 150 Mg Srtab, 150 MG PO DAILY, TAB.SR 02/04/24 Cetirizine HCl (Zyrtec) 10 Mg Capsule, 1 CAP PO DAILY for allergy symptoms for 30 Days, #30 CAP 0 Refills 02/04/24 Metoprolol Succinate (Metoprolol Succinate) 25 Mg Tab.er.24h, 1 TAB PO DAILY for 30 Days, #30 TAB 0 Refills 02/04/24 Prednisone (Prednisone) 20 Mg Tablet, 1 TAB PO DAILY for 5 Days, #5 TAB 0 Refills 02/04/24 Atorvastatin Calcium (LIPITOR) 10 Mg Tab, 1 TAB PO DAILY for 30 Days, #30 TAB 0 Refills 02/04/24 Pregabalin (Pregabalin) 100 Mg Capsule, 100 MG PO DAILY, CAP 02/04/24 Clonazepam (Clonazepam) 0.5 Mg Tablet, 0.5 MG PO HSPRN PRN for ANXIETY/AGITATION, TAB 04/27/22 Acetaminophen with Codeine (Acetaminophen-Cod #3 Tablet) 300 Mg-30 Mg Tablet, 1 EACH PO HS PRN for PAIN, TAB 04/27/22 Discontinued Reported Medications Furosemide (Furosemide) 40 Mg Tablet, 80 MG PO BID, TAB 04/27/22 Diltiazem HCl (Diltiazem 24Hr Cd) 120 Mg Cap.er.24h, 1 CAP PO DAILY for 30 Days, #30 CAP 0 Refills 02/04/24 Aripiprazole (Aripiprazole) 5 Mg Tablet, 5 MG PO HS, TAB 12/26/22 Potassium Chloride (Potassium Chloride) 20 Meq Tab.er.prt, 40 MEQ PO DAILY 12/26/22 [Metalazone] No Conflict Check, 5 MG PO DAILY 12/26/22 [Trintellix] No Conflict Check, 20 MG PO HS 12/26/22 [Multi-Dover] No Conflict Check, 1 TAB.CHEW PO DAILY 12/26/22 Cholestyramine (with Sugar) (Cholestyramine Packet) 4 Gram Powd.pack, 4 GM PO DAILY 12/26/22 Multivitamin (Multivitamin) 1 Each Tablet, 2 EACH PO DAILY, TAB 12/26/22 Loratadine (Loratadine) 10 Mg Tablet, 10 MG PO HS, TAB 12/26/22 Esomeprazole Magnesium (Nexium) 40 Mg Capsule.dr, 40 MG PO DAILY, CAP 04/27/22 Ondansetron (Ondansetron Odt) 8 Mg Tab.rapdis, 8 MG PO BID, TAB 04/27/22 Dicyclomine HCl (Dicyclomine HCl) 20 Mg Tablet, 20 MG PO DAILY, TAB 04/27/22 Trazodone HCl (Trazodone HCl) 100 Mg Tablet, 100 MG PO HS, TAB 04/27/22 Famotidine (Famotidine) 40 Mg Tablet, 40 MG PO HS, TAB 04/27/22 Telmisartan (Telmisartan) 20 Mg Tablet, 20 MG PO DAILY, TAB 05/06/21 Carvedilol (Carvedilol) 12.5 Mg Tablet, 12.5 MG PO BID, TAB 05/06/21 Discontinued Scripts Tamsulosin HCl (Flomax) 0.4 Mg Cap.er.24h, 0.4 MG PO DAILY for 30 Days, #30 CAPSULE. Prov:JANNETTE TRUJILLO DO 01/21/24 Ibuprofen (Ibuprofen 800 mg Tab) 800 Mg Tab, 800 MG PO Q6H PRN for PAIN, #30 TAB Prov:JANNETTE TRUJILLO DO 01/21/24 CINDY SUMMERS MD Feb 12, 2024 14:47
--- NOTE | 2024-02-12 15:19 | OP ---
RIGHT KIDNEY NEPHROSTOMY TUBE PLACEMENT INDICATION: History of hydronephrosis. PELLET MACHINE OPERATOR: Dr. Sauceda. TECHNIQUE: Informed consent was obtained after explaining procedure, its benefits, potential complications and alternatives. Risks to include, but not limited to: Bleeding, infection, vessel or organ injury which could required emergency surgery or blood product transfusions, contrast reaction or other complications related to sedation. Timeout was performed. All elements of maximal sterile barrier technique, including hand hygiene and cutaneous antisepsis were used. Right flank was prepped and draped in sterile fashion. Local anesthesia was applied to the entry site and iesha was made. Under ultrasound guidance, a 21G Chiba needle was advanced into a posterior midpole calyx. Contrast injected to confirm adequate needle position under fluoroscopy. Then, over a wire, the tract was dilated to accommodate an 8F nephrostomy catheter in the collecting system. It was secured to the skin and left to gravity drainage. Sterile dressing was applied. A registered nurse monitored the patient's vital signs throughout and after the procedure. MEDICATIONS: Versed and Fentanyl IV BLOOD LOSS: < 5 mL COMPLICATIONS: None. IMPRESSION: Uneventful placement of right percutaneous nephrostomy tube using fluoroscopy and ultrasound guidance. TID: [id number] RECEIPT: [id number]
[2024-02-12 20:47] LABS: BILIRUBIN,TOTAL 0.3 mg/dL (0.2-1.0); CREATININE 1.3 mg/dL (0.5-1.0); POTASSIUM 3.8 mmol/L (3.5-5.1); TOTAL PROTEIN, SERUM 6.3 g/dL (6.0-8.3)
[2024-02-12] MEDS ORDERED: FURO40TA7 PO (21:42)
--- NOTE | 2024-02-12 22:10 | NUR ---
DISCHARGE PATIENT DISCHARGED WITH INSTRUCTIONS TAKEN BY WHEELCHAIR, PT STABLE.
== END 2024-02-12 22:10 | disposition home or self-care (01) | DRG 689 ==
LOC: EDH 09:25 → EDHIP 12:00 → 4DH 02-05 01:36
PROVIDERS: ADMIT Internal Medicine Sleep Medicine; ATTEND Internal Medicine Sleep Medicine
PROC: 0T9030Z Drainage of Right Kidney with Drainage Device, Percutaneous Approach (ICD-10-PCS; principal; 2024-02-12)
DX: N13.6 Pyonephrosis (principal); E43 Unspecified severe protein-calorie malnutrition; E87.0 Hyperosmolality and hypernatremia; N20.2 Calculus of kidney with calculus of ureter; D84.9 Immunodeficiency, unspecified; I87.1 Compression of vein; I50.32 Chronic diastolic (congestive) heart failure; Z68.42 Body mass index [BMI] 45.0-49.9, adult; I13.0 Hypertensive heart and chronic kidney disease with heart failure and stage 1 through stage 4 chronic kidney disease, or unspecified chronic kidney disease; N17.9 Acute kidney failure, unspecified; E11.22 Type 2 diabetes mellitus with diabetic chronic kidney disease; N18.9 Chronic kidney disease, unspecified; E87.6 Hypokalemia; E66.01 Morbid (severe) obesity due to excess calories; M06.9 Rheumatoid arthritis, unspecified; T42.6X5A Adverse effect of other antiepileptic and sedative-hypnotic drugs, initial encounter; D64.9 Anemia, unspecified; E78.00 Pure hypercholesterolemia, unspecified; E86.0 Dehydration; F32.A Depression, unspecified; F41.9 Anxiety disorder, unspecified; G47.33 Obstructive sleep apnea (adult) (pediatric); G89.29 Other chronic pain; I27.20 Pulmonary hypertension, unspecified; J44.89 Other specified chronic obstructive pulmonary disease; M79.7 Fibromyalgia; Z79.52 Long term (current) use of systemic steroids; Z79.82 Long term (current) use of aspirin; Z79.899 Other long term (current) drug therapy; Z82.49 Family history of ischemic heart disease and other diseases of the circulatory system; Z87.442 Personal history of urinary calculi; Z90.49 Acquired absence of other specified parts of digestive tract; Z90.710 Acquired absence of both cervix and uterus; Z93.6 Other artificial openings of urinary tract status; Z99.81 Dependence on supplemental oxygen; Z88.8 Allergy status to other drugs, medicaments and biological substances; Y92.89 Other specified places as the place of occurrence of the external cause
CPT/HCPCS: 36415; 50432; 71045; 74176; 76770; 78708; 80048; 80053; 80076; 81001; 82550; 82948; 83036; 83540; 83550; 83735; 83880; 84100; 84132; 84145; 84439; 84443; 84481; 84484; 85025; 85027; 85610; 85651; 85730; 86140; 87086; 93005; 93306; 93356; 93970; 96374; 96375; 99156; 99157; A9562; C1769; C1894; G0378; J0696; J1120; J1171; J1644; J1815; J1940; J2250; J2270; J2405; J3010; J3480; J3490; J7512; Q9967; C1729

== ENCOUNTER 2024-02-20 13:52 | Emergency (ER) | payer OTHER, MEDICARE ==
[~2024-02-20] VITALS: Ht 162.6 cm; Wt 125.2 kg
[~2024-02-20 13:52] MED LIST changes: +ADAL40SY SQ; -ARIP5TAB51 PO; +ASPI-1197 PO; +ATOR10 PO; +BUPR-72 PO; -CARV12.511 PO; +CETI10CA5 PO; -CHOL4POW4 PO; -DICY20TA3 PO; +DULA1.5P SQ; -ESOM40CA PO; -FAMO40TA7 PO; -FURO40TA5 PO; +FURO40TA7 PO; -IBUP-2077 PO; +ISOS30TA11 PO; -LORA10TA7 PO; +LOSA25TA41 PO; -METALAZONE PO; +METO-408 PO; -MULT-1367 PO; +OMEP20TA20 PO; -ONDA-245 PO; -POTA-202 PO; +PRED20TA3 PO; +PREG100C56 PO; -TAMS-1 PO; -TELM20TA8 PO; -TRAZ-187 PO; -TRINTELLIX PO; -[UNRECOGNIZED DRUG - OTHER] PO
--- NOTE | 2024-02-20 14:06 | ERN ---
ED Note History of Present Illness Stated Complaint: SOB Chief Complaint: Shortness of Breath Time Seen by MD: 13:56 Dictation: PATIENT IS A 63-YEAR-OLD FEMALE COMING IN TODAY WITH COMPLAINTS OF RIGHT FLANK PAIN THAT DOES NOT RADIATE ONSET SEVERAL DAYS PRIOR TO ARRIVAL. NO FEVER NO CHILLS. SHE DOES HAVE SHORTNESS A BREATH IN HIS USES HOME O2 CONTINUOUSLY AT 2 L PER NASAL CANNULA DUE TO PULMONARY HYPERTENSION, PATIENT OF DR. DAO. SHE STATES THE NEPHROSTOMY TUBE WAS PLACED AT [facility] AND SHE HAD ORIGINALLY SEEN , HOWEVER HE TOLD HER HE WOULD NOT BE SEEING HER HAS A UROLOGIST AND HER PRIMARY CARE DOCTOR REFERRED HER TO ANOTHER UROLOGIST [place] SHE HAS NOT SEEN YET. SHE STATES SHE IS NOT EMPTYING THE BAG FREQUENTLY SHE NORMALLY WAS. Allergies: Coded Allergies: No Known Drug Allergies (Verified Allergy, Unknown, 05/21/19) gabapentin (Unverified Allergy, Unknown, 12/28/22) Home Meds Active Scripts Furosemide (Lasix 40Mg Tab) 40 Mg Tablet, 40 MG PO DAILY, #30 TAB Prov:CINDY SUMMERS MD 02/12/24 Hydrocodone/Acetaminophen (Hydrocodone-Acetamin 10-300 mg) 10 Mg-300 Mg Tablet, 1 TAB PO QIDP PRN for PAIN for 10 Days, #20 TAB 0 Refills Prov:JANNETTE TRUJILLO DO 01/21/24 Reported Medications Dulaglutide (Trulicity) 1.5 Mg/0.5 Ml Pen.injctr, 1.5 MG SQ DAILY 02/04/24 Adalimumab (Humira) 40 Mg/0.4 Ml Syringekit, 40 MG SQ DAILY 02/04/24 Aspirin (Aspirin) 81 Mg Tab.chew, 81 MG PO DAILY, TAB.CHEW 02/04/24 Omeprazole (Omeprazole) 20 Mg Tablet.dr, 1 TAB PO DAILY for 30 Days, #30 TAB 0 Refills 02/04/24 Isosorbide Dinitrate (Isosorbide Dinitrate) 30 Mg Tablet, 1 TAB PO DAILY for chest pain for 30 Days, #30 TAB 0 Refills 02/04/24 Losartan Potassium (Losartan Potassium) 25 Mg Tablet, 1 TAB PO DAILY for 30 Days, #30 TAB 0 Refills 02/04/24 Bupropion HCl (Wellbutrin Sr) 150 Mg Srtab, 150 MG PO DAILY, TAB.SR 02/04/24 Cetirizine HCl (Zyrtec) 10 Mg Capsule, 1 CAP PO DAILY for allergy symptoms for 30 Days, #30 CAP 0 Refills 02/04/24 Metoprolol Succinate (Metoprolol Succinate) 25 Mg Tab.er.24h, 1 TAB PO DAILY for 30 Days, #30 TAB 0 Refills 02/04/24 Prednisone (Prednisone) 20 Mg Tablet, 1 TAB PO DAILY for 5 Days, #5 TAB 0 Refills 02/04/24 Atorvastatin Calcium (LIPITOR) 10 Mg Tab, 1 TAB PO DAILY for 30 Days, #30 TAB 0 Refills 02/04/24 Pregabalin (Pregabalin) 100 Mg Capsule, 100 MG PO DAILY, CAP 02/04/24 Clonazepam (Clonazepam) 0.5 Mg Tablet, 0.5 MG PO HSPRN PRN for ANXIETY/AGITATION, TAB 04/27/22 Acetaminophen with Codeine (Acetaminophen-Cod #3 Tablet) 300 Mg-30 Mg Tablet, 1 EACH PO HS PRN for PAIN, TAB 04/27/22 Past Medical History Past Medical History: Arthritis, Diabetes-Type II, Fibromyalgia, High Cholesterol, Hypertension, Kidney Stone Additional Past Medical Hx: PULMONARY HYPERTENSION Surgical History: Hysterectomy, Cholecystectomy Surgical History Other: NECK PSYCH History: no pertinent psych hx History: Not Applicable RN Note Reviewed/Agreed w/PFSH: Yes Review of System Dictation CONSTITUTIONAL: NEGATIVE EXCEPT FOR HPI HEAD/FACE: NEGATIVE EXCEPT FOR HPI EENT: NEGATIVE EXCEPT FOR HPI RESPIRATORY: NEGATIVE EXCEPT FOR HPI SHORTNESS A BREATH GASTROINTESTINAL/ABDOMINAL: NEGATIVE EXCEPT FOR HPI RIGHT FLANK PAIN WITH NEPHROSTOMY TUBE IN PLACE GENITOURINARY: NEGATIVE EXCEPT FOR HPI MUSCULOSKELETAL: NEGATIVE EXCEPT FOR HPI INTEGUMENTARY: NEGATIVE EXCEPT FOR HPI NEUROLOGICAL/PSYCH: NEGATIVE EXCEPT FOR HPI HEMATOLOGIC/LYMPHATIC: NEGATIVE EXCEPT FOR HPI ALL SYSTEMS NEGATIVE, EXCEPT NOTED ABOVE. 13 POINT REVIEW OF SYSTEMS ASSESSED AND ALL NEGATIVE EXCEPT FOR ABOVE. Initial Vital Sign VS Vital Signs Date Time Temp Pulse Resp B/P (MAP) Pulse Ox O2 Delivery O2 Flow Rate FiO2 02/20/24 13:59 98.8 96 17 107/71 91 Nasal Cannula 2.0 02/20/24 14:31 28 Physical Exam Dictation VITAL SIGNS REVIEWED GENERAL APPEARANCE: ALERT, ORIENTED X 3, MILD ACUTE DISTRESS, WELL DEVELOPED, NOURISHED. MORBIDLY OBESE HEAD AND FACE: NON-TRAUMATIC. EYES: PERRL, PINK CONJUNCTIVAS, EYELID NO TRAUMA, ANTERIOR CHAMBER WITH ARCUS SENILIS. EARS: PINNAS INTACT AND NO SIGNS OF TRAUMA OR ERYTHEMA EAR CANALS CLEAR AND NO DISCHARGE TM NO ERYTHEMA NOSE: NO DISCHARGE, NO BLEEDING. OROPHARYNX: MOUTH NORMAL, TONGUE PINK, PHARYNX CLEAR,NO ERYTHEMA, TONSILS NO EXUDATES, NO ABSCESSES NOTED, MUCOUS MEMBRANE MOIST NECK: SUPPLE, NON-TENDER, NO THYROMEGALY, NO MASSES, NO JVD, NO BRUITS BREAST:DEFERRED CHEST:NO TENDERNESS, NO CREPITUS, NO PARADOXICAL MOVEMENT, NO RETRACTIONS LUNGS:CLEAR, WELL-VENTILATED, SYMMETRIC, NO RALES, NO WHEEZING, NO RHONCHI, NO STRIDOR, GOOD BREATH SOUNDS BILATERALLY L NASAL CANNULA IN PLACE HEART: REGULAR RATE, REGULAR RHYTHM, NO MURMUR, NO GALLOPS VASCULAR: NO PERIPHERAL EDEMA, ABDOMEN: SOFT, POSITIVE BOWEL SOUNDS, NONDISTENDED, NO GUARDING, NONTENDER, NO REBOUND, NO MASSES NO HEPATOMEGALY, NO SPLENOMEGALY, NO ALMEIDA'S SIGN, NO HERNIAS. RECTAL: DEFERRED GENITAL: DEFERRED NEUROLOGICAL: NORMAL SPEECH, MOTOR FUNCTION INTACT, SENSORY FUNCTION INTACT MUSCULOSKELETAL: NECK NONTENDER, FULL RANGE OF MOTION, BACK NONTENDER, FULL RANGE OF MOTION, EXTREMITIES: NONTENDER, FULL RANGE OF MOTION SKIN: COLOR PINK, DRY, NO TURGOR, NO RASH, NO LACERATIONS, NO ABRASIONS, NO CONTUSIONS. LYMPHATIC: DEFERRED Results (Laboratory/Radiology) Laboratory/Radiology Laboratory Tests Test 02/20/24 14:16 02/20/24 16:42 White Blood Count 9.6 K/uL (4.8-10.8) Red Blood Count 4.12 MIL/uL (4.00-5.50) Hemoglobin 11.5 g/dL (12.0-16.0) L Hematocrit 38.5 % (36-48) Mean Corpuscular Volume 93.4 fL (79-99) Mean Corpuscular Hemoglobin 27.9 pg (27.0-33.0) Mean Corpuscular Hemoglobin Concent 29.9 g/dL (32.0-36.0) L Red Cell Distribution Width 13.9 % (11.0-15.5) Platelet Count 271 K/uL (130-400) Mean Platelet Volume 9.6 fL (7.5-10.5) Immature Granulocyte % (Auto) 0.3 % (0-1) Neutrophils (%) (Auto) 39.2 % (40.0-77.0) L Lymphocytes (%) (Auto) 45.5 % (21.0-51.0) Monocytes (%) (Auto) 10.3 % (3.0-13.0) Eosinophils (%) (Auto) 4.1 % (0.0-8.0) Basophils (%) (Auto) 0.6 % (0.0-5.0) Neutrophils # (Auto) 3.8 K/uL (1.8-7.7) Lymphocytes # (Auto) 4.4 K/uL (1.0-4.8) Monocytes # (Auto) 1.0 K/uL (0.1-1.0) Eosinophils # (Auto) 0.39 K/uL (0.00-0.70) Basophils # (Auto) 0.06 K/uL (0.00-0.20) Absolute Immature Granulocyte (auto 0.03 K/uL (0-1) Nucleated Red Blood Cells 0.0 % (0.0-0.19) Red Blood Cell Morphology ANISO 1+ Sodium Level 143 mmol/L (136-145) Potassium Level 3.3 mmol/L (3.5-5.1) L Chloride Level 101 mmol/L (101-111) Carbon Dioxide Level 39 mmol/L (21-32) H Blood Urea Nitrogen 24 mg/dL (7-18) H Creatinine 1.6 mg/dL (0.5-1.0) H Glomerular Filtration Rate Calc 36 mL/min (>90) Random Glucose 158 mg/dL (70-105) H Total Calcium 9.0 mg/dL (8.5-10.1) Troponin I High Sensitivity 13 ng/L (4-50) B-Type Natriuretic Peptide 13 pg/mL (0-100) Urine Color YELLOW (YELLOW) Urine Appearance CLOUDY (CLEAR) H Urine pH 6.0 (5.0-8.0) Urine Specific [place] 1.030 (1.001-1.031) Urine Protein 100 mg/dL (NEGATIVE) H Urine Glucose (UA) NEGATIVE mg/dL (NEGATIVE) Urine Ketones 5 mg/dL (NEGATIVE) H Urine Occult Blood LARGE (NEGATIVE) H Urine Nitrate NEGATIVE (NEGATIVE) Urine Bilirubin NEGATIVE mg/dL (NEGATIVE) Urine Urobilinogen 0.2 mg/dL (0.2-1.0) Urine Leukocyte Esterase 500 Christina/uL (NEGATIVE) H Urine RBC TNTC /HPF (0-1) H Urine WBC 51-100 /HPF (0-1) H Urine Amorphous Crystals (Auto) MOD /LPF (None Seen) Urine Bacteria MOD /HPF (None Seen) Labs Reviewed?: Yes EKG Comment: EKG normal sinus rhythm/heart rate 89/axis normal/no ectopy ED Course ED Course Orders Procedure Category Date Status Time Cbc With Differential LAB 02/20/24 Complete 14:01 Urinalysis Profile LAB 02/20/24 Complete 14:01 Basic Metabolic Panel LAB 02/20/24 Complete 14:01 B-Type Natriuretic LAB 02/20/24 Complete Peptide 14:03 Chest 1vw RAD 02/20/24 Resulted 14:03 12 Lead Ekg Tracing- EKG 02/20/24 Complete Technical 14:03 Troponin I High LAB 02/20/24 Complete Sensitivity 14:03 Morphine 2mg Syg PHA 02/20/24 Complete (Morphine 2mg Syg) 15:00 Hydromorphone 1 Mg PHA 02/20/24 Complete Inj (Dilaudid 1mg Inj 16:00 Ketorolac PHA 02/20/24 Complete Tromethamine 30mg/Ml 17:00 Hydromorphone 1 Mg PHA 02/20/24 Complete Inj (Dilaudid 1mg Inj 17:00 Methylprednisolone PHA 02/20/24 Complete Succ 125mg (Solu-Medr 17:00 Cyclobenzaprine Hcl PHA 02/20/24 Complete (Cyclobenzaprine Hcl 17:00 Us Renal Sonogram US 02/20/24 Logged 16:49 Culture Urine ALICE 02/20/24 In Process 17:04 Amox/Clav 875/125mg PHA 02/20/24 Logged Tab (Augmentin 875-1 18:00 Ondansetron 4mg Inj PHA 02/20/24 Verified (Zofran 4mg Inj) 18:30 Current Medications Medications (Trade) Dose Ordered Sig/Ashanti Route PRN Reason Start Time Stop Time Status Last Admin Dose Admin Amoxicillin/ Clavulanate Potassium (Augmentin 875-125 Tablet) 1 each ONCE ONCE PO 02/20/24 18:00 02/20/24 18:01 UNV Cyclobenzaprine HCl (Cyclobenzaprine HCl) 10 mg ONCE ONCE PO 02/20/24 17:00 02/20/24 17:01 DC 02/20/24 17:10 Hydromorphone HCl (DiLAUDid 1MG INJ) 1 mg ONCE ONCE IVP 02/20/24 16:00 02/20/24 16:01 DC 02/20/24 16:06 Hydromorphone HCl (DiLAUDid 1MG INJ) 1 mg ONCE ONCE IVP 02/20/24 17:00 02/20/24 17:01 DC 02/20/24 17:11 Ketorolac Tromethamine (toRADol) 30 mg ONCE ONCE IVP 02/20/24 17:00 02/20/24 17:01 DC 02/20/24 17:11 Methylprednisolone Sodium Succinate (Solu-medROL 125MG) 125 mg ONCE ONCE IVP 02/20/24 17:00 02/20/24 17:01 DC 02/20/24 17:11 Morphine Sulfate (morPHINE 2MG SYG) 2 mg ONCE ONCE IVP 02/20/24 15:00 02/20/24 15:01 DC 02/20/24 15:08 Vital Signs Date Time Temp Pulse Resp B/P (MAP) Pulse Ox O2 Delivery O2 Flow Rate FiO2 02/20/24 17:59 98.8 88 29 126/72 96 Nasal Cannula* 2 28 02/20/24 16:09 98.8 84 29 124/68 96 Nasal Cannula* 2 28 02/20/24 14:31 98.8 89 29 125/71 96 Nasal Cannula* 2 28 02/20/24 13:59 98.8 96 17 107/71 91 Nasal Cannula 2.0 1645, PATIENT HAS BEEN GIVEN DILAUDID NOW TWICE WITH TORADOL FLEXERIL AND SOLU- MEDROL DUE TO SEVERE CHRONIC LOW BACK PAIN THAT SHE GETS INJECTIONS FOR AN UNABLE TO TOLERATE GOING TO CT SCAN. NEPHROSTOMY BAG IS MAKING URINE WE WILL COLLECT URINE AND HAVE A ULTRASOUND COLLECTED OF HER BLADDER, WE WILL DC CT SCAN. 1801, PATIENT STATES PAIN IS MARKEDLY IMPROVED NOW WISHES TO GO HOME. SHE STATES SHE HAS AN APPOINTMENT WITH ON SUNDAY AND HAS TYLENOL NO. 3 WITH CODEINE AT HOME FOR SEVERE PAIN. SHE STATES SHE ONLY GETS SHORT OF BREATH BECAUSE SHE WAS HAVING PAIN. NOT BECAUSE OF CHEST PAIN OR PRESSURE OR PULMONARY HEART Score Response (Comments) Value EKG: Repolarization changes 1 Age: 45-65yrs (+1) 1 Risk Factors: 1-2 risk factors (+1) 1 Initial Troponin: Normal limit (0) 0 Total 3 Medical Decision Making MDM MDM: DIFFERENTIAL DIAGNOSIS: ACS/AMI/CHF/NEPHROSTOMY DISPLACEMENT/UTI/ELECTROLYTE IMBALANCE/DEHYDRATION/URETERAL COLIC RATIONALE: TESTS CONSIDERED AND ORDERED SECONDARY TO SHARED DECISION MAKING INC [place]: RADIOLOGY/LABS/EKG PREVIOUS OUTSIDE RECORDS REVIEWED: OLD ER VISITS. RISK OF COMPLICATION AND/OR MORBIDITY OR MOR NONE TALITY OF PATIENT MANAGEMENT: NONE MEDICATIONS-PER MEDICATION RECONCILIATION SEE NURSE'S NOTES NEED FOR HOSPITALIZATION: PATIENT DOES NOT MEET CRITERIA FOR HOSPITALIZATION. NO NEED FOR EMERGENCY MAJOR/MINOR SURGERY: NO THERE ARE NO SOCIAL CONCERNS WITH THIS PATIENT. PRESCRIPTION DRUG MANAGEMENT AUGMENTIN/PYRIDIUM PATIENT TOLD TO CONTINUE TYLENOL NO. 3 FROM HER DOCTOR PRESCRIPTIONS WILL INCLUDE SYMPTOMATIC CARE PATIENT'S PRIOR EXTERNAL MEDICAL RECORDS FROM OTHER ER VISITS WERE REVIEWED BY ME INDICATED. PRIOR TESTING AND RESULTS FROM PREVIOUS VISITS WERE REVIEWED. PRIOR TESTS WERE TAKEN INTO ACCOUNT WITH MEDICAL DECISION MAKING AND RESOURCE UTILIZATION, INDEPENDENT HISTORIAN/HISTORIANS WERE USED TO OBTAIN COMPLETE MEDICAL HISTORY. I INDEPENDENTLY INTERPRETED THE TEST THAT WERE PERFORMED, RESULTS WERE REVIEWED BY ME AND CONSIDERED FINDINGS ON RADIOLOGY IF ORDERED. MEDICAL MANAGEMENT AND EXAMINATION INTERPRETATION DISCUSSIONS WERE HAD BY ME WITH OTHER QUALIFIED HEALTHCARE PROFESSIONALS INDICATED FOR THE PATIENT'S CARE. DX & DISP Disposition: Discharge Departure Impression: Primary Impression: Acute cystitis with hematuria Additional Impressions: Dysuria, Hypokalemia, Chronic kidney disease, Pulmonary hypertension, Acute exacerbation of chronic low back pain Condition: Stable Scripts Amoxicillin/Potassium Clav (Amox Tr-K Clv 875-125 mg Tab) 875 Mg-125 Mg Tablet 1 EACH PO BID for 7 Days, #14 TAB 0 Refills Prov: DOMINICK ALLEN NP 02/20/24 Additional Instructions: FOLLOW-UP WITH PRIMARY CARE PROVIDER IN 1 TO 2 DAYS. TAKE MEDICATIONS DIRECTED HERE IN THE EMERGENCY ROOM. OKAY TO CONTINUE HOME MEDICATIONS UNLESS OTHERWISE DISCUSSED DURING YOUR VISIT IN THE EMERGENCY ROOM TODAY. RETURN TO YOUR NEAREST EMERGENCY ROOM IF SYMPTOMS WORSEN OR IF THERE IS NO IMPROVEMENT. CALL 911 IF YOU NEED IMMEDIATE ASSISTANCE. TAKE TYLENOL OR MOTRIN [id number]-[id number]-[id number] NEEDED AND IF NO CONTRAINDICATIONS ARE PRESENT. INCREASE ORAL HYDRATION. A WOUND CULTURE OR URINE CULTURE WAS ORDERED HERE IN THE EMERGENCY ROOM DEPARTMENT PLEASE FOLLOW-UP WITH PRIMARY CARE PROVIDER AND ADVISE THEM TO GET REPEAT PORTS FROM OUR FACILITY. IF YOU HAD ANY GAURANG WRAP/SPLINTS THAT WERE APPLIED HERE, PLEASE DO NOT REMOVE THEM UNTIL YOU SEE YOUR PRIMARY CARE OR SPECIALTY. FOLLOW UP WITH THE UROLOGIST IN THE NEXT 1-2 DAYS. INCREASE YOUR WATER INTAKE. TAKE TYLENOL NO. 3 FROM YOUR DOCTOR NEEDED FOR SEVERE PAIN. Referrals: VINCE HASSAN MD (PCP) Time of Disposition: 18:05 I have reviewed the case, and I agree with, Diagnosis and Plan DOMINICK ALLEN NP Feb 20, 2024 14:06
--- NOTE | 2024-02-20 14:14 | EKG ---
[facility] Test Date: 2024-02-20 Test Time: 14:08:39 Pat Name: [place] Department: ED Room: Gender: F Admissions Clerk: [id number] : 1960 Requested By: DOMINICK ALLEN Order Number: [id number] Reading MD: Manpreet Mac Measurements Intervals [place] Rate: 89 P: 52 AK: 146 QRS: -10 QRSD: 96 T: 36 QT: 376 QTc: 459 Interpretive Statements Sinus rhythm Low voltage, precordial leads Compared to ECG 02/04/2024 13:32:41 No significant changes Electronically Signed On 02-20-2024 19:18:57 PAINTER FOREMAN by Manpreet Mac Please click the below link to view image of tracing.
[2024-02-20 14:23] LABS: BASOPHILS # (AUTO) 0.06 K/uL (0.00-0.20); BASOPHILS % (AUTO) 0.6 % (0.0-5.0); EOSINOPHILS # (AUTO) 0.39 K/uL (0.00-0.70); EOSINOPHILS % (AUTO) 4.1 % (0.0-8.0); HEMATOCRIT 38.5 % (36-48); IMMATURE GRANULOCYTE ABSOLUTE 0.03 K/uL (0-1); LYMPHOCYTES # (AUTO) 4.4 K/uL (1.0-4.8); LYMPHOCYTES % (AUTO) 45.5 % (21.0-51.0); MEAN CORPUSCULAR HEMOGLOBIN 27.9 pg (27.0-33.0); MEAN CORPUSCULAR HGB CONC 29.9 g/dL (32.0-36.0); MEAN CORPUSCULAR VOLUME 93.4 fL (79-99); MONOCYTES % (AUTO) 10.3 % (3.0-13.0); NEUTROPHILS # (AUTO) 3.8 K/uL (1.8-7.7); NEUTROPHILS % (AUTO) 39.2 % (40.0-77.0); PLATELET COUNT (AUTO) 271 K/uL (130-400); RED BLOOD CELL COUNT(AUTO) 4.12 MIL/uL (4.00-5.50); RED CELL DISTRIBUTION WIDTH 13.9 % (11.0-15.5); WHITE BLOOD COUNT (AUTO) 9.6 K/uL (4.8-10.8)
[2024-02-20 14:36] LABS: CREATININE 1.6 mg/dL (0.5-1.0); POTASSIUM 3.3 mmol/L (3.5-5.1)
[2024-02-20] MEDS: morPHINE 2 MG SYG IVP ONE (15:08)
[2024-02-20] MEDS: hydroMORPHone 1 MG INJ IVP ONE ×2 (16:06→17:11)
[2024-02-20 16:57] LABS: BILIRUBIN,URINE NEGATIVE (NEGATIVE); COLOR,URINE YELLOW (YELLOW); GLUCOSE, URINE (UA) NEGATIVE (NEGATIVE); KETONES,URINE 5 mg/dL (NEGATIVE); LEUKOCYTE ESTERASE ,URINE 500 Leu/uL (NEGATIVE); NITRATE,URINE NEGATIVE (NEGATIVE); OCCULT BLOOD,URINE LARGE (NEGATIVE); PROTEIN,URINE 100 mg/dL (NEGATIVE); UROBILINOGEN,URINE 0.2 mg/dL (0.2-1.0)
--- NOTE | 2024-02-20 17:03 | NUR ---
CT ATTEMPTED X 5 PATIENT CONTINUES TO REFUSE, PATIENT EDUCATED ON THE IMPORTANCE OF CT, CONTINUES TO DECLINE, ED STUD SETTER MADE AWARE
[2024-02-20 17:04] LABS: ADD UA MICROSCOPIC YES; APPEARANCE,URINE CLOUDY (CLEAR)
[2024-02-20] MEDS: CYCLOBENZAPRINE HCL 10 MG TABLET PO ONE (17:10)
[2024-02-20] MEDS: ketOROlac 30MG VIAL (30MG/ML) IVP ONE (17:11)
[2024-02-20] MEDS: Solu-medROL 125MG VIAL IVP ONE (17:11)
--- NOTE | 2024-02-20 17:29 | HMCIMG ---
CHEST 1VW REASON: SHORTNESS A BREATH COMPARISON: 02/06/2014 FINDINGS: Single view of the chest was obtained. Lungs are clear. Heart size is normal. There is no pulmonary vascular congestion. Mediastinum and bony thorax appear unremarkable. Surgical hardware is noted in the lower cervical spine. IMPRESSION: 1. No acute finding, no change.
[2024-02-20 17:30] LABS: BACTERIA,URINE MOD /HPF (None Seen); MUCUS,URINE RARE LPF (None Seen); RBC,URINE TNTC /HPF (0-1); WBC,URINE 51-100 /HPF (0-1)
[2024-02-20 17:59] VITALS: BP 126/72; PULSE 88; RESP 29; TEMP 98.7; O2SAT 96
[2024-02-20] MEDS ORDERED: AMOX1TAB16 PO (18:06)
[2024-02-20] MEDS: AMOX/CLAV 875/125MG TAB PO ONE ×2 (18:15→18:34)
[2024-02-20] MEDS: ondanSETRON 4MG INJ IVP ONE (18:34)
[2024-02-20] MEDS: PoTASSium chloRIDE 20MEQ ER 20 MEQ ERTAB PO ONE (18:34)
== END 2024-02-20 18:39 | disposition home or self-care (01) ==
LOC: EDH 13:52
DX: N30.01 Acute cystitis with hematuria (principal); E87.6 Hypokalemia; I12.9 Hypertensive chronic kidney disease with stage 1 through stage 4 chronic kidney disease, or unspecified chronic kidney disease; E11.22 Type 2 diabetes mellitus with diabetic chronic kidney disease; N18.9 Chronic kidney disease, unspecified; G89.29 Other chronic pain; M54.50 Low back pain, unspecified; I27.20 Pulmonary hypertension, unspecified; E78.00 Pure hypercholesterolemia, unspecified; M19.90 Unspecified osteoarthritis, unspecified site; Z79.52 Long term (current) use of systemic steroids; Z79.620 Long term (current) use of immunosuppressive biologic; Z79.82 Long term (current) use of aspirin; Z79.899 Other long term (current) drug therapy; Z88.8 Allergy status to other drugs, medicaments and biological substances; Z90.49 Acquired absence of other specified parts of digestive tract; Z90.710 Acquired absence of both cervix and uterus
CPT/HCPCS: 99284; 96374; 96375; 71045; 84484; 80048; 83880; 85025; 87086 ×2; 87186; 81001; 36415; 96376; 93005; J1171 ×2; J2270; J2919; J2405; J1885

== ENCOUNTER → 2024-03-10 | Outpatient (CLI) | payer OTHER, MEDICARE ==
[~2024-03-10] MED LIST changes: +AMOX1TAB16 PO
[2024-03-10 16:24] LABS: CREATININE 1.3 mg/dL (0.5-1.0); MAGNESIUM 1.9 mg/dL (1.80-2.40); POTASSIUM 3.7 mmol/L (3.5-5.1)
== END | disposition home or self-care (01) ==
LOC: LAB 13:37
PROVIDERS: ATTEND Internal Medicine Cardiovascular Disease
DX: R06.00 Dyspnea, unspecified (principal); I50.32 Chronic diastolic (congestive) heart failure
CPT/HCPCS: 36415; 80048; 83735; 83880

== ENCOUNTER → 2024-03-10 | Outpatient (CLI) | payer OTHER, MEDICARE ==
--- NOTE | 2024-03-10 15:53 | HMCIMG ---
CHEST 2VWS HISTORY: Dyspnea COMPARISON: 02/20/2024 FINDINGS: Frontal and lateral projections of the chest were obtained. There is no acute pulmonary infiltrates or failure. The heart is enlarged. No evidence of aortic calcification is seen. Degenerative changes are seen of the thoracolumbar spine. IMPRESSION: 1. No acute pulmonary infiltrates.
== END | disposition home or self-care (01) ==
LOC: RAH 14:48
PROVIDERS: ATTEND Internal Medicine Cardiovascular Disease
DX: R06.00 Dyspnea, unspecified (principal); I51.7 Cardiomegaly; M47.815 Spondylosis without myelopathy or radiculopathy, thoracolumbar region
CPT/HCPCS: 71046

== ENCOUNTER → 2024-03-11 | Outpatient (CLI) | payer OTHER, MEDICARE ==
--- NOTE | 2024-03-11 10:57 | HMCIMG ---
MAMMO SCREENING BILATERAL HISTORY: Screening mammogram. COMPARISON: 03/07/2023 TECHNIQUE: Bilateral screening mammogram with CAD was performed with craniocaudal and mediolateral oblique projections. FINDINGS: There are scattered areas of fibroglandular density. There is no evidence of a dominant mass, or suspicious microcalcification. There is no evidence of nipple retraction or skin thickening. IMPRESSION: 1. Stable mammogram. Patient was entered into a reminder system with a target due date for their next mammogram. BI-RADS: CATEGORY 2: BENIGN FINDINGS Recommend monthly self breast exam as well as annual clinical examination. A negative x-ray should not delay biopsy if a dominant or clinically suspicious mass is present, since 8-10% of cancers are not identified by mammography. Dense breasts particularly, may obscure an underlying neoplasm. Some of these may be detected clinically and therefore, clinical examination is an essential part of breast evaluation.
== END | disposition home or self-care (01) ==
LOC: RAH 09:07
PROVIDERS: ATTEND Internal Medicine
DX: Z12.31 Encounter for screening mammogram for malignant neoplasm of breast (principal); R92.323 Mammographic fibroglandular density, bilateral breasts
CPT/HCPCS: 77067

== ENCOUNTER → 2024-08-13 | Outpatient (CLI) | payer OTHER, MEDICARE ==
--- NOTE | 2024-08-13 15:17 | HMCIMG ---
US VENOUS DOPPLER UNILATERAL HISTORY: Right leg pain COMPARISON: None TECHNIQUE: Right lower extremity venous Doppler ultrasound study was performed. FINDINGS: The right common femoral, femoral, popliteal, and posterior tibial veins are visualized. Normal flow with augmentation and compressibilities are demonstrated. Right greater saphenous vein is patent. IMPRESSION: 1. No evidence of deep venous thrombosis is seen.
== END | disposition home or self-care (01) ==
LOC: RAH 13:46
PROVIDERS: ATTEND Internal Medicine
DX: T14.8XXA Other injury of unspecified body region, initial encounter (principal); M79.604 Pain in right leg; L08.9 Local infection of the skin and subcutaneous tissue, unspecified; R60.9 Edema, unspecified; X58.XXXA Exposure to other specified factors, initial encounter; Y93.89 Activity, other specified; Y92.89 Other specified places as the place of occurrence of the external cause; Y99.8 Other external cause status
CPT/HCPCS: 93971

== ENCOUNTER 2024-11-29 10:56 | Emergency (ER) | payer OTHER, MEDICARE ==
[~2024-11-29] VITALS: Ht 165.1 cm; Wt 102.1 kg
[~2024-11-29 10:56] MED LIST changes: -ADAL40SY SQ; -AMOX1TAB16 PO; -ASPI-1197 PO; -BUPR-72 PO; -CETI10CA5 PO; +DAPA10TA PO; -DULA1.5P SQ; +FERS325 PO; -HYDR-4381 PO; -ISOS30TA11 PO; +METH-386 PO; +METO2.5T2 PO; +POTA-202 PO; +PRAM0.5T12 PO; +PRED10TA23 PO; -PRED20TA3 PO; +SEMA2PEN SQ; +[UNRECOGNIZED DRUG - CODE] PO
--- NOTE | 2024-11-29 11:08 | ERN ---
ED Note History of Present Illness Stated Complaint: BACK PAIN Chief Complaint: Back Pain-No Injury Time Seen by MD: 11:01 Dictation: PATIENT IS A 64-YEAR-OLD FEMALE COMING IN TODAY WITH A AN ACUTE EXACERBATION OF CHRONIC UPPER THORACIC PAIN SHE HAS HAD FOR A LONG TIME. SHE STATES IT HAS GOTTEN WORSE OVER THE LAST SEVERAL WEEKS HAS ALREADY HAD A PRIOR MRI AND SHE HAS GOT SPURS ON HER SPINE. SHE IS SEEING , H[facility] SHEARER IN [facility] AND SAW HIM ON SUNDAY. SHE STATES HE GAVE HIM AN EPIDURAL AND P RESCRIBED BACLOFEN 50 MG DAILY WITH TYLENOL WITH CODEINE. SHE SAW HER PRIMARY CARE DOCTOR ON SUNDAY WHO GAVE HER A SHOT OF TORADOL. HE IS HERE TODAY BECAUSE HER PAIN IS UNCONTROLLED. NEUROVASCULAR CMS INTACT TO LOWER EXTREMITIES Allergies: Coded Allergies: No Known Drug Allergies (Verified Allergy, Unknown, 05/21/19) gabapentin (Unverified Allergy, Unknown, 12/28/22) Home Meds Active Scripts Furosemide (Lasix 40Mg Tab) 40 Mg Tablet, 40 MG PO DAILY, #30 TAB Prov:CINDY SUMMERS MD 02/12/24 Reported Medications Ferrous Sulfate (Ferrous Sulfate) 325 Mg (65 Mg Iron) Ectab, 1 TAB PO BID for 30 Days, #60 TAB 0 Refills 08/16/24 Dapagliflozin Propanediol (Farxiga) 10 Mg Tablet, 1 TAB PO DAILY for 30 Days, #30 TAB 0 Refills 25 Methimazole (Methimazole) 5 Mg Tablet, 1 TAB PO DAILY for 30 Days, #30 TAB 0 Refills 08/16/24 Prednisone (Prednisone) 10 Mg Tab.ds.pk, 1 TAB PO DAILY for 5 Days, #21 TAB 0 Refills 25 Pramipexole Di-HCl (Pramipexole Dihydrochloride) 0.5 Mg Tablet, 1 TAB PO HS for 30 Days, #30 TAB 0 Refills 2425 Mycophenolate Sodium (Mycophenolic Acid) 360 Mg Tablet.dr, 1 TAB PO BID for 30 Days, #60 TAB 0 Refills 08/16/24 Metoprolol Succinate (Metoprolol Succinate) 25 Mg Tab.er.24h, 1 TAB PO DAILY for 30 Days, #30 TAB 0 Refills 25 Losartan Potassium (Losartan Potassium) 25 Mg Tablet, 1 TAB PO DAILY for 30 Days, #30 TAB 0 Refills 08/16/24 Metolazone (Metolazone) 2.5 Mg Tablet, 2.5 MG PO QMOWEFR, TAB 08/16/24 Potassium Chloride (Potassium Chloride) 20 Meq Tab.er.prt, 1 TAB PO BID for 30 Days, #60 TAB 0 Refills 08/16/24 Semaglutide (Ozempic) 2 Mg/0.75 Ml (8 Mg/3 Ml) Pen.injctr, 2 MG SQ QWEEK for 30 Days, #3 ML 0 Refills 08/16/24 Omeprazole (Omeprazole) 20 Mg Tablet.dr, 40 MG PO DAILY for 30 Days, #30 TAB 0 Refills 02/04/24 Atorvastatin Calcium (LIPITOR) 10 Mg Tab, 1 TAB PO DAILY for 30 Days, #30 TAB 0 Refills 02/04/24 Pregabalin (Pregabalin) 100 Mg Capsule, 100 MG PO DAILY, CAP 02/04/24 Clonazepam (Clonazepam) 0.5 Mg Tablet, 0.5 MG PO HSPRN PRN for ANXIETY/AGITATION, TAB 04/27/22 Acetaminophen with Codeine (Acetaminophen-Cod #3 Tablet) 300 Mg-30 Mg Tablet, 1 EACH PO Q6HPRN PRN for PAIN LEVEL 4 TO 6, TAB 04/27/22 Past Medical History Past Medical History: Arthritis, Diabetes-Type II, Fibromyalgia, High Choles terol, Hypertension, Kidney Stone Additional Past Medical Hx: PULMONARY HYPERTENSION Surgical History: Hysterectomy, Cholecystectomy Surgical History Other: NECK History: Not Applicable RN Note Reviewed/Agreed w/PFSH: Yes Review of System Dictation CONSTITUTIONAL: NEGATIVE EXCEPT FOR HPI HEAD/FACE: NEGATIVE EXCEPT FOR HPI EENT: NEGATIVE EXCEPT FOR HPI RESPIRATORY: NEGATIVE EXCEPT FOR HPI GASTROINTESTINAL/ABDOMINAL: NEGATIVE EXCEPT FOR HPI GENITOURINARY: NEGATIVE EXCEPT FOR HPI MUSCULOSKELETAL: NEGATIVE EXCEPT FOR HPI UPPER THORACIC BACK PAIN/CRUTCHES INTEGUMENTARY: NEGATIVE EXCEPT FOR HPI NEUROLOGICAL/PSYCH: NEGATIVE EXCEPT FOR HPI HEMATOLOGIC/LYMPHATIC: NEGATIVE EXCEPT FOR HPI ALL SYSTEMS NEGATIVE, EXCEPT NOTED ABOVE. 13 POINT REVIEW OF SYSTEMS ASSESSED AND ALL NEGATIVE EXCEPT FOR ABOVE. Initial Vital Sign VS Vital Signs Date Time Temp Pulse Resp B/P (MAP) Pulse Ox O2 Delivery O2 Flow Rate FiO2 11/29/24 10:57 98.4 113 20 135/87 99 Room Air 11/29/24 11:12 0 21 Physical Exam Dictation VITAL SIGNS REVIEWED GENERAL APPEARANCE: ALERT, ORIENTED X 3, SEVERE ACUTE DISTRESS, WELL DEVELOPED, NOURISHED. OBESE HEAD AND FACE: NON-TRAUMATIC. EYES: PERRL, PINK CONJUNCTIVAS, EYELID NO TRAUMA, ANTERIOR CHAMBER WITH ARCUS SENILIS. EARS: PINNAS INTACT AND NO SIGNS OF TRAUMA OR ERYTHEMA EAR CANALS CLEAR AND NO DISCHARGE TM NO ERYTHEMA NOSE: NO DISCHARGE, NO BLEEDING. OROPHARYNX: MOUTH NORMAL, TONGUE PINK, PHARYNX CLEAR,NO ERYTHEMA, TONSILS NO EXUDATES, NO ABSCESSES NOTED, MUCOUS MEMBRANE MOIST NECK: SUPPLE, NON-TENDER, NO THYROMEGALY, NO MASSES, NO JVD, NO BRUITS BREAST:DEFERRED CHEST:NO TENDERNESS, NO CREPITUS, NO PARADOXICAL MOVEMENT, NO RETRACTIONS LUNGS:CLEAR, WELL-VENTILATED, SYMMETRIC, NO RALES, NO WHEEZING, NO RHONCHI, NO STRIDOR, GOOD BREATH SOUNDS BILATERALLY HEART: REGULAR RATE, REGULAR RHYTHM, NO MURMUR, NO GALLOPS VASCULAR: NO PERIPHERAL EDEMA, ABDOMEN: SOFT, POSITIVE BOWEL SOUNDS, NONDISTENDED, NO GUARDING, NONTENDER, NO REBOUND, NO MASSES NO HEPATOMEGALY, NO SPLENOMEGALY, NO ALMEIDA'S SIGN, NO HERNIAS. RECTAL: DEFERRED GENITAL: DEFERRED NEUROLOGICAL: NORMAL SPEECH, MOTOR FUNCTION INTACT, SENSORY FUNCTION INTACT MUSCULOSKELETAL: NECK NONTENDER, DIFFUSE LOWER AND UPPER THORACIC PAIN NO STEP- OFFS. DECREASED ROM WITH SPASM NOTED EXTREMITIES: NONTENDER, FULL RANGE OF MOTION SKIN: COLOR PINK, DRY, NO TURGOR, NO RASH, NO LACERATIONS, NO ABRASIONS, NO CONTUSIONS. LYMPHATIC: DEFERRED Results (Laboratory/Radiology) Labs Reviewed?: Yes ED Course ED Course Orders Procedure Category Date Status Time Acetaminophen With PHA 11/29/24 Complete Codeine (Tylenol-Code 11:30 Dexamethasone 4mg/Ml PHA 11/29/24 Complete 1ml Vial (Dexametha 11:30 Cyclobenzaprine Hcl PHA 11/29/24 Complete (Cyclobenzaprine Hcl 11:30 Ketorolac PHA 11/29/24 Complete Tromethamine 30mg/Ml 11:30 Current Medications Medications (Trade) Dose Ordered Sig/Ashanti Route PRN Reason Start Time Stop Time Status Last Admin Dose Admin Acetaminophen/ Codeine Phosphate (TYLenol-coDEINE TAB) 2 tab ONCE ONCE PO 11/29/24 11:30 11/29/24 11:31 DC 11/29/24 11:22 Cyclobenzaprine HCl (Cyclobenzaprine HCl) 10 mg ONCE ONCE PO 11/29/24 11:30 11/29/24 11:31 DC 11/29/24 11:22 Dexamethasone Sodium Phosphate (dexaMETHasone 4MG/ML 1ML VIAL) 8 mg ONCE ONCE IM 11/29/24 11:30 11/29/24 11:31 DC 11/29/24 11:22 Ketorolac Tromethamine (toRADol) 30 mg ONCE ONCE IVP 11/29/24 11:30 11/29/24 11:31 DC 11/29/24 11:23 Vital Signs Date Time Temp Pulse Resp B/P (MAP) Pulse Ox O2 Delivery O2 Flow Rate FiO2 11/29/24 11:12 111 20 146/98 96 Room Air* 0 21 11/29/24 10:57 98.4 113 20 135/87 99 Room Air 1215/spoke to patient and her at length regarding pain. She is aware that I would not be able to get rid of it completely however she has to doctors that were unable to get rid of it. I did send her home with Tylenol No. 3 since she said she ran out yesterday. She states she is also on prednisone she has been on for a long time. Told her to continue that and see her doctor Sunday without fail Medical Decision Making [facility] 1212/MEDICAL DECISION-MAKING BASED ON EMPIRIC TREATMENT FOR ACUTE EXACERBATION OF CHRONIC THORACIC PAIN. PATIENT DISCHARGED HOME WITH TYLENOL NO. 3 AND TOLD TO CONTINUE HER BACLOFEN FROM WARM COMPRESSES THREE TO 4 TIMES A DAY AND SEE HER DOCTOR ON SUNDAY WITHOUT FAIL FOR MANAGEMENT DX & DISP Disposition: Discharge Departure Impression: Primary Impression: Acute exacerbation of chronic low back pain Condition: Stable Scripts Acetaminophen with Codeine (Acetaminophen-Cod #3 Tablet) 300 Mg-30 Mg Tablet 2 TAB PO Q6HPRN PRN for MODERATE TO SEVERE, #20 TAB 0 Refills TWO TABLETS BY MOUTH EVERY 6 HOURS NEEDED FOR MODERATE TO SEVERE BACK PAIN Prov: DOMINICK ALLEN OPERATIONS ANALYST 11/29/24 Additional Instructions: Follow-up with primary care provider in 1 to 2 days. Take medications as directed here in the emergency room. Okay to continue home medications unless otherwise discussed during your visit in the emergency room today. Return to your nearest emergency room if symptoms worsen or if there is no improvement. Call 911 if you need immediate assistance. Take Tylenol or Motrin [id number] as needed and if no contraindications are present. Increase oral hydration. A wound culture or urine culture was ordered here in the emergency room department please follow-up with primary care provider and advise them to get repeat ports from our facility. If you had any Fredy wrap/splints that were applied here, please do not remove them until you see your primary care or specialty. Warm compresses to back three to 4 times a day. 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 See your doctor on Sunday without fail for follow up and manage Referrals: VINCE HASSAN MD (PCP) Time of Disposition: 12:15 I have reviewed the case, and I agree with, Diagnosis and Plan DOMINICK ALLEN NP Nov 29, 2024 11:08
[2024-11-29] MEDS: CYCLOBENZAPRINE HCL 10 MG TABLET PO ONE (11:22)
[2024-11-29] MEDS ORDERED: ACET-2079 PO (12:16)
[2024-11-29 12:49] VITALS: BP 138/82; PULSE 87; RESP 18; TEMP 98.4; O2SAT 99
== END 2024-11-29 12:48 | disposition home or self-care (01) ==
LOC: EDH 10:56
DX: G89.29 Other chronic pain (principal); M54.50 Low back pain, unspecified; E11.9 Type 2 diabetes mellitus without complications; E78.00 Pure hypercholesterolemia, unspecified; I10 Essential (primary) hypertension; M19.90 Unspecified osteoarthritis, unspecified site; M79.7 Fibromyalgia; Z79.52 Long term (current) use of systemic steroids; Z79.624 Long term (current) use of inhibitors of nucleotide synthesis; Z79.84 Long term (current) use of oral hypoglycemic drugs; Z79.85 Long-term (current) use of injectable non-insulin antidiabetic drugs; Z79.899 Other long term (current) drug therapy; Z88.8 Allergy status to other drugs, medicaments and biological substances; Z90.49 Acquired absence of other specified parts of digestive tract; Z90.710 Acquired absence of both cervix and uterus
CPT/HCPCS: 99284; 96374; 96372; J1100; J1885

== ENCOUNTER 2025-01-02 09:46 | Inpatient (IN) | payer OTHER, MEDICARE ==
[2025-01-02] VITALS (13 sets, daily range): BP systolic 104–119; BP diastolic 58–82; PULSE 101–114; RESP 14–35; TEMP 97.9; O2SAT 94
[~2025-01-02] VITALS: Ht 160 cm; Wt 98.0 kg
[~2025-01-02 09:46] MED LIST changes: +ASPI-1197 PO; +BLOO-462 MISC; +BUME2TAB5 PO; -CLON0.5T4 PO; +INSU3INS3 SQ; -OMEP20TA20 PO; +OMEP40CA21 PO; +OXYC10TA48 PO; +SPIR25TA6 PO; +TERB250T89 PO; +UPAD15TA PO
--- NOTE | 2025-01-02 10:11 | ERN ---
General Chief Complaint: Shortness of Breath Stated Complaint: SOB Time Seen by MD: 10:40 History of Present Illness Initial Comments 64-year-old female with a past medical history of hypertension, diabetes mellitus, congestive heart failure, pulmonary hypertension, COPD,chronic back pain with compressive fracture of T12-L2 vertebra and bilateral leg swelling with wound presented worsening of shortness of. Since this morning associated with chest pain. She also complained of occasional cough without sputum production. She stated her chest pain is constant without any radiation with no aggravating and relieving factor. She denied history of fever, abdominal pain, palpitation, nausea, vomiting, dizziness , sweating. Allergies: Coded Allergies: gabapentin (Unverified Allergy, Intermediate, 12/09/24) No Known Drug Allergies (Verified Allergy, Unknown, 05/21/19) Home Meds Active Scripts Acetaminophen with Codeine (Acetaminophen-Cod #3 Tablet) 300 Mg-30 Mg Tablet, 2 TAB PO Q6HPRN PRN for MODERATE TO SEVERE, #20 TAB 0 Refills TWO TABLETS BY MOUTH EVERY 6 HOURS NEEDED FOR MODERATE TO SEVERE BACK PAIN Prov:DOMINICK ALLEN 11/29/24 Furosemide (Lasix 40Mg Tab) 40 Mg Tablet, 40 MG PO DAILY, #30 TAB Prov:CINDY SUMMERS MD 02/12/24 Reported Medications Insulin Glargine,Hum.rec.anlog (Lantus Solostar) 100 Unit/Ml (3 Ml) Insuln.pen, 10 UNIT SQ HS for 30 Days, #5 ML 0 Refills 12/09/24 Blood Sugar Diagnostic (Freestyle Lite Strips) 1 Each Strip, 1 STRIP MISC DAILY for 30 Days, #30 STRIP 0 Refills 12/09/24 Omeprazole (Omeprazole) 40 Mg Capsule.dr, 1 CAP PO DAILY for 30 Days, #30 CAP 0 Refills 12/09/24 Aspirin (Aspirin) 81 Mg Tab.chew, 1 TAB PO DAILY for 30 Days, #30 TAB 0 Refills 12/09/24 Spironolactone (Spironolactone) 25 Mg Tablet, 1 TAB PO DAILY for 30 Days, #30 TAB 0 Refills 12/09/24 Bumetanide (Bumetanide) 2 Mg Tablet, 1 TAB PO DAILY for 30 Days, #30 TAB 0 Refills 12/09/24 Terbinafine HCl (Terbinafine HCl) 250 Mg Tablet, 1 TAB PO DAILY for 30 Days, #30 TAB 0 Refills 12/09/24 Upadacitinib (Rinvoq ER) 15 Mg Tab.er.24h, 15 MG PO AM, TAB 12/09/24 Atorvastatin Calcium (LIPITOR) 20 Mg Tab, 1 TAB PO DAILY for 30 Days, #30 TAB 0 Refills 12/09/24 Oxycodone HCl (Oxycodone HCl) 10 Mg Tablet, 1 TAB PO TIDP PRN for pain for 5 Days, #15 TAB 0 Refills 12/09/24 Ferrous Sulfate (Ferrous Sulfate) 325 Mg (65 Mg Iron) Ectab, 1 TAB PO BID for 30 Days, #60 TAB 0 Refills 08/16/24 Dapagliflozin Propanediol (Farxiga) 10 Mg Tablet, 1 TAB PO DAILY for 30 Days, #30 TAB 0 Refills 08/16/24 Methimazole (Methimazole) 5 Mg Tablet, 1 TAB PO DAILY for 30 Days, #30 TAB 0 Refills 25 Prednisone (Prednisone) 10 Mg Tab.ds.pk, 1 TAB PO DAILY for 5 Days, #21 TAB 0 Refills 08/16/24 Pramipexole Di-HCl (Pramipexole Dihydrochloride) 0.5 Mg Tablet, 1 TAB PO HS for 30 Days, #30 TAB 0 Refills 08/16/24 Mycophenolate Sodium (Mycophenolic Acid) 360 Mg Tablet.dr, 1 TAB PO BID for 30 Days, #60 TAB 0 Refills 08/16/24 Metoprolol Succinate (Metoprolol Succinate) 25 Mg Tab.er.24h, 1 TAB PO DAILY for 30 Days, #30 TAB 0 Refills 08/16/24 Losartan Potassium (Losartan Potassium) 25 Mg Tablet, 1 TAB PO DAILY for 30 Days, #30 TAB 0 Refills 25 Metolazone (Metolazone) 2.5 Mg Tablet, 2.5 MG PO QMOWEFR, TAB 08/16/24 Potassium Chloride (Potassium Chloride) 20 Meq Tab.er.prt, 1 TAB PO BID for 30 Days, #60 TAB 0 Refills 08/16/24 Semaglutide (Ozempic) 2 Mg/0.75 Ml (8 Mg/3 Ml) Pen.injctr, 2 MG SQ QWEEK for 30 Days, #3 ML 0 Refills 08/16/24 Atorvastatin Calcium (LIPITOR) 10 Mg Tab, 1 TAB PO DAILY for 30 Days, #30 TAB 0 Refills 02/04/24 Pregabalin (Pregabalin) 100 Mg Capsule, 100 MG PO DAILY, CAP 02/04/24 Past Medical History Past Medical History: COPD, Diabetes-Type II, High Cholesterol, Hypertension, Other Medical History Other: PULMONARY HTN Past Surgical History: Cholecystectomy, Other Surgical History Other: NECK SX. Female( History) History: Not Applicable ROS Dictation CONSTITUTIONAL: No chills, no fever, no weakness, no diaphoresis, no malaise. HEAD/FACE: No signs of trauma. EENT: No eye pain, no blurred vision, no tearing, no double vision, no ear pain, no ear discharge, no nose pain, no nasal congestion, no throat pain, no throat swelling, no mouth pain. RESPIRATORY: Complained of cough and shortness of breathe. CARDIOVASCULAR: Complained of chest pain, bilateral lower limb edema GASTROINTESTINAL/ABDOMINAL: No abdominal pain, no constipation, no diarrhea, no nausea, no vomiting. GENITOURINARY: No abnormal discharge, no dysuria, no frequent urination, no hematuria. No complaints of pain in the genitals. MUSCULOSKELETAL: No back pain, no gout, no joint pain, no joint swelling, no muscle pain, no muscle stiffness, no neck pain. INTEGUMENTARY: Wound on the bilateral lower limb. NEUROLOGICAL/PSYCH: No anxiety, not depressed, no emotional problem, no headache, no numbness, no pre-existing deficit, no history of seizures, no tremors, no weakness. HEMATOLOGIC/LYMPHATIC: Not anemic, no history of blood clots, no apparent bleeding, no bruising, glands not swollen. Physical Exam Physical Exam Dictation GENERAL APPEARANCE: Alert, oriented x3, no acute distress, obese. HEAD AND FACE: Non-traumatic. EYES: PERRL, pink conjunctivas, eyelid no trauma, anterior chamber clear. EARS: Pinnas intact and no signs of trauma or erythema. Ear canals clear and no discharge. TMs no erythema. NOSE: No discharge, no bleeding. OROPHARYNX: Mouth normal, teeth no caries, tongue pink. Pharynx clear, no erythema. Tonsils no exudates, no abscesses noted. Mucous membrane moist. NECK: Supple, non-tender, no thyromegaly, no masses, no JVD, no bruits. BREAST: Deferred. CHEST: No tenderness, no crepitus, no paradoxical movement, no retractions. LUNGS: Diminished breath sound bilaterally with occasional rhonchi. HEART: S1-S2 with no murmur. VASCULAR: Bilateral peripheral pedal edema ABDOMEN: Soft, positive bowel sounds, nondistended, no guarding, nontender, no rebound RECTAL: Deferred. GENITAL: Deferred. NEUROLOGICAL: Normal speech, gross motor function intact, gross sensory function intact. MUSCULOSKELETAL: Neck nontender, full range of motion, back nontender, full range of motion. EXTREMITIES: Nontender, full range of motion. SKIN: Bilateral pedal edema with wound Results Laboratory and Microbiology Lab and Micro Result Laboratory Tests Test 01/02/25 10:07 01/02/25 10:37 01/02/25 11:14 01/02/25 12:05 White Blood Count 8.9 K/uL (4.8-10.8) Red Blood Count 4.94 MIL/uL (4.00-5.50) Hemoglobin 13.5 g/dL (12.0-16.0) Hematocrit 44.8 % (36-48) Mean Corpuscular Volume 90.7 fL (79-99) Mean Corpuscular Hemoglobin 27.3 pg (27.0-33.0) Mean Corpuscular Hemoglobin Concent 30.1 g/dL (32.0-36.0) L Red Cell Distribution Width 15.9 % (11.0-15.5) H Platelet Count 252 K/uL (130-400) Mean Platelet Volume 9.0 fL (7.5-10.5) Immature Granulocyte % (Auto) 0.4 % (0-1) Neutrophils (%) (Auto) 59.7 % (40.0-77.0) Lymphocytes (%) (Auto) 28.3 % (21.0-51.0) Monocytes (%) (Auto) 9.6 % (3.0-13.0) Eosinophils (%) (Auto) 1.6 % (0.0-8.0) Basophils (%) (Auto) 0.4 % (0.0-5.0) Neutrophils # (Auto) 5.3 K/uL (1.8-7.7) Lymphocytes # (Auto) 2.5 K/uL (1.0-4.8) Monocytes # (Auto) 0.9 K/uL (0.1-1.0) Eosinophils # (Auto) 0.14 K/uL (0.00-0.70) Basophils # (Auto) 0.04 K/uL (0.00-0.20) Absolute Immature Granulocyte (auto 0.04 K/uL (0-1) Nucleated Red Blood Cells 0.0 % (0.0-0.19) Red Blood Cell Morphology See comments Prothrombin Time 10.9 SEC (9.6-11.6) Prothromb Time International Ratio 1.03 (0.85-1.15) Activated Partial Thromboplast Time 26.2 SEC (26.3-35.5) L Sodium Level 142 mmol/L (136-145) Potassium Level 3.1 mmol/L (3.5-5.1) L Chloride Level 97 mmol/L (101-111) L Carbon Dioxide Level 35 mmol/L (21-32) H Blood Urea Nitrogen 17 mg/dL (7-18) Creatinine 1.3 mg/dL (0.5-1.0) H Glomerular Filtration Rate Calc 46 mL/min (>90) Random Glucose 140 mg/dL (70-105) H Total Calcium 8.9 mg/dL (8.5-10.1) Magnesium Level 1.70 mg/dL (1.80-2.40) L Total Creatine Kinase 98 U/L (21-232) Troponin I High Sensitivity 235 ng/L (4-50) *H 510 ng/L (4-50) *H B-Type Natriuretic Peptide 29 pg/mL (0-100) Influenza Type A Antigen Negative For Type A Influenza Type B Antigen Negative For Type B SARS-CoV-2, RNA, NAAT NEGATIVE SARS CoV-2 Group A Streptococcus Rapid negative (NEGATIVE) Blood Gas Specimen Type Arterial Arterial Blood pH 7.485 (7.350-7.450) Arterial Blood Partial Pressure CO2 44 mmHg (32-45) Arterial Blood Partial Pressure O2 61.5 mmHg (83.0-108.0) L Arterial Blood HCO3 32.7 mmol/L (21.0-28.0) H Arterial Blood Oxygen Saturation 93.1 % (94.0-98.0) L Arterial Blood Base Excess 8.2 mmol/L (-2.0-3.0) H Blood Gas Temperature 37.0 CELSIUS (35.5-37.0) Blood Gas Flow-by 2.00 L/min (0.00-15.00) Blood Gas Vent Mode 2 L NC (ROOM AIR) FiO2 28.0 % Blood Gas Specimen Comment DANETTE ISABEL. FARZANA MDM MDM: Differential diagnosis:pe, copd exacerbation, chf, stemi, acs Rationale: Tests considered and ordered secondary to shared decision making include: labs, ECG and radiology Previous outside records reviewed: Old ER visits. Risk of complication and/or morbidity or mortality of patient management: None Medications-Per medication reconciliation Need for hospitalization: Patient does meet criteria for hospitalization. Need for emergency major/minor surgery: No There are no social concerns with this patient. Prescription drug management Prescriptions will include symptomatic care Patient's prior external medical records from other ER visits were reviewed by me as indicated. Prior testing and results from previous visits were reviewed. Prior tests were taken into account with medical decision making and resource utilization, independent historian/historians were used to obtain complete medical history. I independently interpreted the test that were performed, results were reviewed by me and considered findings on radiology if ordered. Medical management and examination interpretation discussions were had by me with other qualified healthcare professionals as indicated for the patient's care.64-year-old female with past medical history of hypertension, diabetes, congestive heart failure, COPD, pulmonary hypertension with home oxygen, chronic low lower back pain with fracture, bilateral lower limb swelling with wound presented with a chief complaint of shortness of breath and chest pain. Remarkable labs are for potassium 3.1, magnesium 1.70, bicarbonate 35, creatinine 1.3, troponin 235, BNP 29. Potassium and magnesium was repleted. Troponin was trended which revealed 510. CT angio chest revealed bilateral pulmonary artery embolism in the right main and left main pulmonary artery. Electrolytes were repleted. She was started on heparin drip and Cardiology was consulted. Patient will be admitted under the care of hospitalist group for ongoing management. ED Course Orders Procedure Category Date Status Time Cbc With Differential LAB 01/02/25 Complete 09:51 Chest 1vw RAD 01/02/25 Resulted 09:51 12 Lead Ekg Tracing- EKG 01/02/25 Complete Technical 09:51 Magnesium LAB 01/02/25 Complete 09:51 Creatine Kinase, Total LAB 01/02/25 Complete 09:51 Troponin I High LAB 01/02/25 Complete Sensitivity 09:51 Urinalysis Profile LAB 01/02/25 Logged 09:51 Basic Metabolic Panel LAB 01/02/25 Complete 09:51 B-Type Natriuretic LAB 01/02/25 Complete Peptide 09:51 Covid Rna Naat LAB 01/02/25 Complete 09:51 Influenza Type A & B, LAB 01/02/25 Complete Rapid 09:51 Troponin I High LAB 01/02/25 Complete Sensitivity 11:02 Magnesium 2gm Premix PHA 01/02/25 Complete 50ml (Magnesium 2gm 11:30 Potassium Chloride PHA 01/02/25 Complete 10meq/100ml ([place] 11:30 Ct Chest Pe Protocol CT 01/02/25 Resulted Wwo Cont 11:11 Ondansetron 4mg Inj PHA 01/02/25 Complete (Zofran 4mg Inj) 11:30 Arterial Blood Gas RT 01/02/25 Transmitted 11:29 Rapid (Group A Strep) LAB 01/02/25 Complete 10:37 Arterial Blood Gas LAB 01/02/25 Complete 12:05 0.9% Nacl 500ml PHA 01/02/25 Complete Iv.Soln (Ns 500ml 12:30 Pt And Ptt LAB 01/02/25 Complete 12:24 Iohexol (Omnipaque) PHA 01/02/25 Complete 12:52 Troponin I High LAB 01/02/25 In Process Sensitivity 13:41 Initiate Heparin WILIAN 01/02/25 In Process Treatment Pro 13:52 Heparin 5,000 Unit PHA 01/02/25 In Process Vial (Heparin 5,000 U 15:00 Heparin 25,000 PHA 01/02/25 In Process Units/250ml D5w 15:00 Heparin Protocol CPOE 01/02/25 Transmitted Monitoring 13:52 Cardiology Consult CONPHYSVC 01/02/25 Transmitted 13:59 Pulmonology Consult CONPHYSVC 01/02/25 Transmitted 13:59 Partial LAB 01/02/25 Logged Thromboplastin Time 20:00 Heparin 5,000 Unit PHA 01/02/25 Complete Vial (Heparin 5,000 U 14:00 Echo 2-D Complete ECHO 01/02/25 Logged 14:02 Current Medications Medications (Trade) Dose Ordered Sig/Ashanti Route PRN Reason Start Time Stop Time Status Last Admin Dose Admin Heparin Sodium (Porcine) (HEParin 5,000 UNIT VIAL) *calculation based on ACTUAL B... AD PRN IV HEPARIN PROTOCOL 01/02/25 15:00 02/01/25 14:59 Heparin Sodium (Porcine) (HEParin 5,000 UNIT VIAL) 7,000 unit ONCE ONCE IV 01/02/25 14:00 01/02/25 14:07 DC Heparin Sodium/ Dextrose 250 ml @ 0 mls/hr Q6H IV 01/02/25 15:00 02/01/25 14:59 Iohexol (Omnipaque) 35,000 mg STK-MED ONCE IV 01/02/25 12:52 01/02/25 12:52 DC Magnesium Sulfate (Magnesium 2gm Premix 50ml) 2 g ONCE ONCE IV 01/02/25 11:30 01/02/25 11:31 DC 01/02/25 12:01 Ondansetron HCl (zoFRAN 4MG INJ) 4 mg ONCE ONCE IVP 01/02/25 11:30 01/02/25 11:31 DC 01/02/25 12:00 Potassium Chloride 100 ml @ 100 mls/hr ONCE ONCE IV 01/02/25 11:30 01/02/25 12:29 DC 01/02/25 12:35 Sodium Chloride 500 ml @ 0 mls/hr ONCE ONCE IV 01/02/25 12:30 01/02/25 12:31 DC 01/02/25 12:35 Vital Signs Date Time Temp Pulse Resp B/P (MAP) Pulse Ox O2 Delivery O2 Flow Rate FiO2 01/02/25 09:49 98.2 113 20 110/76 95 Room Air Critical Care Note Comments Critical Care Procedure Note Authorized and Performed by: me Total critical care time: Approximately 36 minutes Due to a high probability of clinically significant, life threatening deterioration, the patient required my highest level of preparedness to intervene emergently and I personally spent this critical care time directly and personally managing the patient. This critical care time included obtaining a history; examining the patient; pulse oximetry; ordering and review of studies; arranging urgent treatment with development of a management plan; evaluation of patient's response to treatment; frequent reassessment; and, discussions with other providers. This critical care time was performed to assess and manage the high probability of imminent, life-threatening deterioration that could result in multi-organ failure. It was exclusive of separately billable procedures and treating other patients and teaching time. Please see MDM section and the rest of the note for further information on patient assessment and treatment. DX & DISP Disposition: Inpatient Decision to Admit Time: 14:10 Departure Impression: Primary Impression: Bilateral pulmonary embolism Additional Impressions: ACS (acute coronary syndrome), Respiratory distress Condition: Stable Referrals: VINCE HASSAN MD (PCP) MALACHI KRAMER MD Jan 02, 2025 10:11 RENATA DE ANDA MD Jan 02, 2025 14:11
[2025-01-02 10:15] LABS: IMMATURE GRANULOCYTE ABSOLUTE 0.04 K/uL (0-1); NUCLEATED RED BLOOD CELLS 0.0 % (0.0-0.19); PLATELET COUNT (AUTO) 252 K/uL (130-400); RED BLOOD CELL COUNT(AUTO) 4.94 MIL/uL (4.00-5.50); RED CELL DISTRIBUTION WIDTH 15.9 % (11.0-15.5); WHITE BLOOD COUNT (AUTO) 8.9 K/uL (4.8-10.8)
--- NOTE | 2025-01-02 10:25 | EKG ---
[facility] Test Date: 2025-01-02 Test Time: 10:00:39 Pat Name: STEW LAKE Department: ED Room: 208 Gender: F Bag Adjuster: [id number] : 1960 Requested By: RENATA DE ANDA Order Number: [id number] Reading MD: Roscoe Espinosa Measurements Intervals [place] Rate: 116 P: 26 DE: 130 QRS: -3 QRSD: 119 T: -32 QT: 338 QTc: 471 Interpretive Statements Sinus tachycardia Nonspecific intraventricular conduction delay Low voltage, precordial leads Electronically Signed On 01-04-2025 16:05:13 CDT by Roscoe Espinosa Please click the below link to view image of tracing.
[2025-01-02 10:34] LABS: CREATINE KINASE, TOTAL 98.0 U/L (21-232); CREATININE 1.3 mg/dL (0.5-1.0); GLOMERULAR FILTR. RATE CALC 46.0 mL/min (>90); GLUCOSE,RANDOM 140.0 mg/dL (70-105); SODIUM SERUM 142.0 mmol/L (136-145); UREA NITROGEN, BLOOD 17.0 mg/dL (7-18)
--- NOTE | 2025-01-02 10:58 | HMCIMG ---
CHEST 1VW REASON: sob COMPARISON: Study from 12/16/2024 is available. FINDINGS: Single view of the chest was obtained. Lungs are clear. Heart size is normal. There is no pulmonary vascular congestion. Mediastinum and bony thorax appear unremarkable. IMPRESSION: 1. Unchanged from prior study with no evidence of an acute cardiopulmonary process.
[2025-01-02 11:15] LABS: INFLUENZA TYPE A Negative For Type A (NEGATIVE); INFLUENZA TYPE B Negative For Type B (NEGATIVE)
[2025-01-02 11:24] LABS: SARS-CoV-2, RNA, NAAT NEGATIVE SARS CoV-2 (NEGATIVE)
[2025-01-02] MEDS: MAGNESIUM 2GM PREMIX 50ML IV ONE (12:01)
--- NOTE | 2025-01-02 12:03 | NUR ---
PT PENDING PROPER IV FOR CT ANGIO. MAAME LANDA WILL CALL BACK WHEN READY.
[2025-01-02 12:06] LABS: ABG BASE EXCESS 8.2 mmol/L (-2.0-3.0); ABG HCO3 32.7 mmol/L (21.0-28.0); ABG OXYGEN SATURATION 93.1 % (94.0-98.0); ABG PCO2 44 mmHg (32-45); ABG PH 7.485 (7.350-7.450); DEVICE COMMENT RR JULIE. RN; PO2, ARTERIAL BG 61.5 mmHg (83.0-108.0); TEMPERATURE, CELSIUS BG 37.0 CELSIUS (35.5-37.0); VENT MODE, BG 2 L NC (ROOM AIR)
[2025-01-02] MEDS: 0.9% NACL 500ML IV.SOLN 500 ML IV ONE (12:35)
[2025-01-02 12:37] LABS: INR 1.03 (0.85-1.15)
[2025-01-02] MEDS ORDERED: IOHEXOL 350 MG/ML 100ML INFUS..BTL IV ONE ×3 (12:52→17:48)
--- NOTE | 2025-01-02 13:29 | HMCIMG ---
CT CHEST PE PROTOCOL WWO CONT REASON: SOB TECHNIQUE: Thin axial images through the chest were obtained during bolus intravenous administration of 100 ml of Omnipaque 350. Sagittal and coronal reconstruction images were performed. FINDINGS: There is intraluminal thrombus seen in the left main pulmonary artery extending to the left lower pulmonary artery branches.. There is a similar finding seen in the right main pulmonary artery extending to the right lower lung branches. Thoracic aorta is unremarkable. There is atherosclerotic changes with calcified plaque of the thoracic aorta and great vessels. There is a left heart straining.. Heart size is within normal limits. No pleural or pericardial effusion is identified. Lungs are clear. No pneumothorax is noted. There is no mediastinal or axillary lymphadenopathy. There is severe kyphosis with multilevel osteoarthritic changes and disease of thoracic spine. There are surgical changes with fusion seen in the lower cervical spine. Limited evaluation of the upper abdomen is unremarkable. IMPRESSION: Pulmonary embolus seen in both pulmonary arteries. This is amenable for follow-up for pharmaco-mechanical lysis CT was performed with one or more following dose reduction techniques: automated exposure control, adjustment of the mA and kv according to patient's size, or use of a iterative reconstruction technique.
--- NOTE | 2025-01-02 14:16 | HP ---
[facility] HISTORY AND PHYSICAL Date of Service: Jan 02, 2025 Time of Service: 14:16 HISTORY OF PRESENT ILLNESS: 64-year-old female past medical history of hypertension, obesity, hyperlipidemia, rheumatoid arthritis, history of pulmonary hypertension on home oxygen, obstructive sleep apnea, history of CHF, history of lower extremity venous stasis with chronic wound, history of lower back pain, history of compression fracture of the lumbar spine who presented to the hospital secondary to chest pain and shortness of breaths. The patient states since this morning she noted that she was getting increasingly short of breath at rest. She also had pain in the chest bilaterally. She denied any pain radiating to her arms, paresthesias stoma jaw. She has a history of chronic lower extremity ulcer which she currently has a dressing present on. She has noted some discharge from the leg. She has been having increasing pain in the lower back and is not able to lie down flat. She prefers to be in a sitting position. She denied being on any blood thinners. Denied any fever, chills, cough, abdominal pain, nausea, vomiting. Denied any hematuria, melena, hematochezia, hematemesis. On presentation patient's temperature was 98.2, heart rate was 113 one three, patient's respiratory rate was 20, blood pressure was 110/76 Labs were notable for white count of 8.9, hemoglobin was 13.5, platelet count was 252 K, sodium was 142, potassium was 3.1, creatinine was 1.3, troponin initially was 235, BNP was 29, troponin trended up to [address] chest which showed bilateral PE both pulmonary arteries REVIEW OF SYSTEMS CONSTITUTIONAL: Denies fevers, chills, or night sweats. No unintentional weight loss reported. NEUROLOGICAL: Denies headache, amaurosis fugax, motor weakness, sensory deficit, vertigo/spinning sensation, gait abnormalities, or tremors. ENT: No hearing loss, otalgia, otorrhea, rhinitis, rhinorrhea, hoarseness, or sore throat. CARDIOVASCULAR: For chest pain, shortness of breath at rest. PULMONARY: Positive for shortness of breaths. Denied any cough, hemoptysis GASTROINTESTINAL: Denies any type of dysphagia to either liquids or solids. Denies nausea, vomiting, pyrosis, early satiety, abdominal pain, diarrhea, constipation, or changes in stool consistency or caliber. Denies coffee-ground emesis, hematemesis, hematochezia, or melanotic stools. GENITOURINARY: Denies frequency, urgency, nocturia, hematuria or incontinence (Storage/Irritative symptoms.) Low urinary stream, straining to void, urinary intermittency or hesitancy, splitting of the voiding stream, terminal dribbling. ENDOCRINOLOGIC: Denies polyuria, polydipsia, polyphagia or heat/cold intolerances. HEMATOLOGIC: Denies thrombophilia/previous clots, or coagulopathy/bleeding disorders. ONCOLOGIC: Denies personal history of malignancy. DERMATOLOGIC: Denies rashes or pruritus. PSYCHIATRIC: Denies any suicidal or homicidal ideation. Denies hallucinations. PAST MEDICAL HISTORY: Hypertension, obesity, hyperlipidemia, history of rheumatoid arthritis, history of pulmonary hypertension, MARIA TERESA was history of CHF, history of lower extremity ulcer PAST SURGICAL HISTORY: [ Hysterectomy in 2001, lithotripsy x2, lumbar laminectomy with diskectomy and spinal decompression on December 14, 2011 and cholecystectomy in 2022] PAST SOCIAL HISTORY: [ Patient lives with . Patient denies alcohol tobacco and recreational drug use ] FAMILY HISTORY: Denied any pertinent family history Coded Allergies: gabapentin (Unverified Allergy, Intermediate, 12/09/24) No Known Drug Allergies (Verified Allergy, Unknown, 05/21/19) PHYSICAL EXAM GENERAL APPEARANCE: The patient is awake, alert, and oriented, in no acute cardiopulmonary distress. Patient is unable to lie flat. She prefers to be in a seated position NEUROLOGICAL: Cranial nerves II-XII grossly intact. Motor is 5/5 in bilateral upper and lower extremities proximal to distal. No sensory deficits. HEENT: Face is symmetric. Pupils are equal and reactive. Extraocular movements are intact. NECK: Supple. No JVD. No thyromegaly. No submental, submandibular, pre- /postauricular, occipital or supraclavicular lymphadenopathy. CHEST: Normal chest expansion. No Telemetry. LUNGS: Absence of any rales, rhonchi or any wheezing. CARDIOVASCULAR: Regular. S1 and S2 normal. No appreciable rubs, murmurs or gallops. ABDOMEN: Soft, nontender, and nondistended. There is no rebound, voluntary guarding, or rigidity. : Deferred. No Schuler. EXTREMITIES: Erythema in the lower extremity bilaterally with pitting edema. She has a wound noted in the left lower extremity. Currently has a dressing present. SKIN: No skin breakdown. Vital Sign (Last 24 Hours) 01/02/25 09:49 Temp 98.2 Pulse 113 Resp 20 B/P (MAP) 110/76 Pulse Ox 95 O2 Delivery Room Air LABS: Laboratory: Test 01/02/25 12:05 01/02/25 11:14 01/02/25 10:37 01/02/25 10:07 Range/Units Blood Gas Specimen Type Arterial Arterial Blood pH 7.485 H 7.350-7.450 Arterial Blood Partial Pressure CO2 44 32-45 mmHg Arterial Blood Partial Pressure O2 61.5 L 83.0-108.0 mmHg Arterial Blood HCO3 32.7 H 21.0-28.0 mmol/L Arterial Blood Oxygen Saturation 93.1 L 94.0-98.0 % Arterial Blood Base Excess 8.2 H -2.0-3.0 mmol/L Blood Gas Temperature 37.0 35.5-37.0 CELSIUS Blood Gas Flow-by 2.00 0.00-15.00 L/min Blood Gas Vent Mode 2 L NC ROOM AIR FiO2 28.0 % Blood Gas Specimen Comment RR MAAME. RN Troponin I High Sensitivity 510 *H 4-50 ng/L Influenza Type A Antigen Negative For Type A NEGATIVE Influenza Type B Antigen Negative For Type B NEGATIVE SARS-CoV-2, RNA, NAAT NEGATIVE SARS CoV-2 NEGATIVE Group A Streptococcus Rapid negative NEGATIVE White Blood Count 8.9 4.8-10.8 K/uL Red Blood Count 4.94 4.00-5.50 MIL/uL Hemoglobin 13.5 12.0-16.0 g/dL Hematocrit 44.8 36-48 % Mean Corpuscular Volume 90.7 79-99 fL Mean Corpuscular Hemoglobin 27.3 27.0-33.0 pg Mean Corpuscular Hemoglobin Concent 30.1 L 32.0-36.0 g/dL Red Cell Distribution Width 15.9 H 11.0-15.5 % Platelet Count 252 130-400 K/uL Mean Platelet Volume 9.0 7.5-10.5 fL Immature Granulocyte % (Auto) 0.4 0-1 % Neutrophils (%) (Auto) 59.7 40.0-77.0 % Lymphocytes (%) (Auto) 28.3 21.0-51.0 % Monocytes (%) (Auto) 9.6 3.0-13.0 % Eosinophils (%) (Auto) 1.6 0.0-8.0 % Basophils (%) (Auto) 0.4 0.0-5.0 % Neutrophils # (Auto) 5.3 1.8-7.7 K/uL Lymphocytes # (Auto) 2.5 1.0-4.8 K/uL Monocytes # (Auto) 0.9 0.1-1.0 K/uL Eosinophils # (Auto) 0.14 0.00-0.70 K/uL Basophils # (Auto) 0.04 0.00-0.20 K/uL Absolute Immature Granulocyte (auto 0.04 0-1 K/uL Nucleated Red Blood Cells 0.0 0.0-0.19 % Red Blood Cell Morphology See comments Prothrombin Time 10.9 9.6-11.6 SEC Prothromb Time International Ratio 1.03 0.85-1.15 Activated Partial Thromboplast Time 26.2 L 26.3-35.5 SEC Sodium Level 142 136-145 mmol/L Potassium Level 3.1 L 3.5-5.1 mmol/L Chloride Level 97 L 101-111 mmol/L Carbon Dioxide Level 35 H 21-32 mmol/L Blood Urea Nitrogen 17 7-18 mg/dL Creatinine 1.3 H 0.5-1.0 mg/dL Glomerular Filtration Rate Calc 46 >90 mL/min Random Glucose 140 H 70-105 mg/dL Total Calcium 8.9 8.5-10.1 mg/dL Magnesium Level 1.70 L 1.80-2.40 mg/dL Total Creatine Kinase 98 21-232 U/L B-Type Natriuretic Peptide 29 0-100 pg/mL Current Medications Medications (Trade) Dose Ordered Sig/Ashanti Route PRN Reason Start Time Stop Time Status Last Admin Dose Admin Heparin Sodium (Porcine) (HEParin 5,000 UNIT VIAL) *calculation based on ACTUAL B... AD PRN IV HEPARIN PROTOCOL 01/02/25 15:00 02/01/25 14:59 Heparin Sodium/ Dextrose 250 ml @ 0 mls/hr Q6H IV 01/02/25 15:00 02/01/25 14:59 01/02/25 14:12 16 MLS/HR DIAGNOSTICS / RADIOLOGY: CT chest was reviewed ASSESSMENT: Bilateral PE POA Acute on chronic hypoxic respiratory failure secondary to PE Troponin elevation likely in setting of PE Lower back pain MRI showing chronic compression fracture of T12 vertebrae 12/16/2024 Bilateral lower extremity edema with chronic wound History of venous stasis History of Pulmonary hypertension History of CardioMEMS device loose Obesity Obstructive sleep apnea Hypertension Hyperlipidemia CKD stage 3 PLAN: - patient to be admitted to ICU -in reference to bilateral PE. Patient will be started on heparin drip. Case was discussed with Cardiology. We will obtain a stat echo for evaluation of right heart strain. We will request Cardiology consult for evaluation of mechanical thrombectomy -obtain critical Care consultation. Case was personally discussed with critical care -closely monitor for any bleeding. We will obtain wound care consultation. -obtain TSH, hemoglobin A1c, procalcitonin -obtain a echocardiogram -obtain a venous Doppler of the lower extremities -home medications which will be reconciled once available -further orders per hospitalization course Advanced Care Planning Which of the following were discussed: Hospice care: Yes __ No _x_ Therapeutic options: Yes __ No __ Advance directives: Yes __ No __ Other discussions: Discussed with who?: patient (Patient, family or surrogates) Voluntary nature of this service was explained to the patient? Yes _x_ No __ Amount of time spent: 25 minutes GOPAL Montano MD, MD Jan 02, 2025 14:16
--- NOTE | 2025-01-02 14:16 | CONS ---
[facility] CONSULTATION NOTE Date Patient Seen: Jan 02, 2025 Time of Visit: 14:16 Supervising Physician: HUGO REESE MD Reason for Consultation: [facility] Primary Care Physician: VINCE HASSAN MD Outpatient Specialists: [ ] Inpatient Consults: BIS PROBLEM LIST: Acute on chronic hypoxic respiratory failure POA Bilateral PE not in shock POA NSTEMI POA Left SFV + DVT Lower back pain MRI showing chronic compression fracture of T12 vertebrae 12/16/2024 Bilateral lower extremity edema with chronic wound History of venous stasis History of Pulmonary hypertension History of CardioMEMS Obesity Obstructive sleep apnea Hypertension Hyperlipidemia CKD stage 3 HPI: This is a 64-year-old obese female with a past medical history of hypertension, hyperlipidemia, rheumatoid arthritis, history of pulmonary hypertension on home O2 PRN, MARIA TERESA, CHF, chronic bilateral lower extremity venous stasis ulcers, chronic back pain with history of compression fracture of the lumbar spine who presented to the ED after experiencing increasing shortness breath today. As per patient this morning she woke up went to the restroom and after that she could not catch her breath. She also reports chest pain and back pain that radiates to her arms. On arrival to the ED patient has a heart rate of 113 blood pressure 110/76 respiratory rate of 20 saturating 95% at 4 L via nasal cannula and afebrile. Initial laboratory workup shows unremarkable CBC, chemistry potassium was 3.1 chloride of 97 carbon dioxide 35 BUN of 17 creatinine 1.3 and GFR of 46 with a glucose of 140 mg/dL magnesium 1.70. Electrolyte replacement protocol has already been ordered. Initial troponin was 235 and 2nd troponin 510. BNP of 29. EKG shows sinus tachycardia, with nonspecific intraventricular conduction delay. Low voltage, precordial leads. Heart rate of 116 beats per minute. Chest x-ray shows unchanged from prior study with no evidence of an acute cardiopulmonary process. Lungs are clear, heart size is normal, there is no pulmonary vascular congestion noted mediastinum and bony thorax appears unremarkable. CT of the chest shows pulmonary embolus seen in both pulmonary arteries. Dr. Brambila has been consulted to evaluate for thrombectomy and he has ordered a 2D echo stat which has already been done. Awaiting further recommendations per Cardiology. For now patient has been started on heparin drip per PE protocol. She is not a candidate for thrombolysis that she is not currently hypotensive. Ultrasound bilateral lower extremities shows left superficial femoral vein positive for DVT . PAST MEDICAL HX: see above PAST SURGICAL HX: noncontributory SOCIAL HISTORY: No tobacco, ETOH, or illicit drug use Coded Allergies: gabapentin (Unverified Allergy, Intermediate, 12/09/24) No Known Drug Allergies (Verified Allergy, Unknown, 05/21/19) REVIEW OF SYSTEMS: Const: + fatigue,+ mild anxiety Eyes: no recent vision problems ENT: No congestion, ear pain, or sore throat C/V: + chest pain, palpitations, + bilateral pitting edema to lower extremities Resp: + shortness for breath, dyspnea on minimal exertion GI: No abdominal pain, nausea, vomiting, constipation, or diarrhea : No incontinence of or dyuria M/S: + bilateral lower extremity swelling+ back pain Skin: + chronic venous stasis ulcers to bilateral lower extremities Neuro: -numbness weakness and dizziness Psych: no depression or anxiety Heme: no abnormal bruising or bleeding Endocrinology: + thyroid mass Lymph: [no swollen glands PHYSICAL EXAM: GENERAL: alert, weak, awake oriented x 3, fatigue HEENT: EOMI, Sclera non icteric, moist mucosa NECK: History of thyroid mass, no JVD, trachea midline LUNGS: Diminished breath sounds bilaterally. No wheezes HEART: Regular rate and rhythm. Normal S1 and S2, without murmurs ABD: Abdomen soft, nontender. Bowel sounds present EXT: No clubbing cyanosis or edema NEURO: Alert and oriented to person, follows commands Vital Signs (last 8hr) Date Time Temp Pulse Resp B/P (MAP) Pulse Ox O2 Delivery O2 Flow Rate FiO2 01/02/25 09:49 98.2 113 20 110/76 95 Room Air LABS: Hematology Labs: Test 01/02/25 10:07 Range/Units White Blood Count 8.9 4.8-10.8 K/uL Red Blood Count 4.94 4.00-5.50 MIL/uL Hemoglobin 13.5 12.0-16.0 g/dL Hematocrit 44.8 36-48 % Mean Corpuscular Volume 90.7 79-99 fL Mean Corpuscular Hemoglobin 27.3 27.0-33.0 pg Mean Corpuscular Hemoglobin Concent 30.1 L 32.0-36.0 g/dL Red Cell Distribution Width 15.9 H 11.0-15.5 % Platelet Count 252 130-400 K/uL Mean Platelet Volume 9.0 7.5-10.5 fL Immature Granulocyte % (Auto) 0.4 0-1 % Neutrophils (%) (Auto) 59.7 40.0-77.0 % Lymphocytes (%) (Auto) 28.3 21.0-51.0 % Monocytes (%) (Auto) 9.6 3.0-13.0 % Eosinophils (%) (Auto) 1.6 0.0-8.0 % Basophils (%) (Auto) 0.4 0.0-5.0 % Neutrophils # (Auto) 5.3 1.8-7.7 K/uL Lymphocytes # (Auto) 2.5 1.0-4.8 K/uL Monocytes # (Auto) 0.9 0.1-1.0 K/uL Eosinophils # (Auto) 0.14 0.00-0.70 K/uL Basophils # (Auto) 0.04 0.00-0.20 K/uL Absolute Immature Granulocyte (auto 0.04 0-1 K/uL Nucleated Red Blood Cells 0.0 0.0-0.19 % Red Blood Cell Morphology See comments Chemistry Labs: Test 01/02/25 11:14 01/02/25 10:07 Range/Units Troponin I High Sensitivity 510 *H 4-50 ng/L Sodium Level 142 136-145 mmol/L Potassium Level 3.1 L 3.5-5.1 mmol/L Chloride Level 97 L 101-111 mmol/L Carbon Dioxide Level 35 H 21-32 mmol/L Blood Urea Nitrogen 17 7-18 mg/dL Creatinine 1.3 H 0.5-1.0 mg/dL Glomerular Filtration Rate Calc 46 >90 mL/min Random Glucose 140 H 70-105 mg/dL Total Calcium 8.9 8.5-10.1 mg/dL Magnesium Level 1.70 L 1.80-2.40 mg/dL Total Creatine Kinase 98 21-232 U/L B-Type Natriuretic Peptide 29 0-100 pg/mL Coagulation Labs: Test 01/02/25 10:07 Range/Units Prothrombin Time 10.9 9.6-11.6 SEC Prothromb Time International Ratio 1.03 0.85-1.15 Activated Partial Thromboplast Time 26.2 L 26.3-35.5 SEC DIAGNOSTICS / RADIOLOGY RESULTS: [[facility] [address] [address] IMAGING REPORT Signed PATIENT: STEW LAKE MR#: [id number] : 1960 SEX: F AGE: 64 LOCATION: [facility] ORDER 1113 STATUS: REG ER REPORT#: [id number] SERVICE 1111 REASON: SOB ORDERING PHYSICIAN: MALACHI KRAMER MD PROCEDURE: CHES PE - CT CHEST PE PROTOCOL WWO CONT CT CHEST PE PROTOCOL WWO CONT REASON: SOB TECHNIQUE: Thin axial images through the chest were obtained during bolus intravenous administration of 100 ml of Omnipaque 350. Sagittal and coronal reconstruction images were performed. FINDINGS: There is intraluminal thrombus seen in the left main pulmonary artery extending to the left lower pulmonary artery branches.. There is a similar finding seen in the right main pulmonary artery extending to the right lower lung branches. Thoracic aorta is unremarkable. There is atherosclerotic changes with calcified plaque of the thoracic aorta and great vessels. There is a left heart straining.. Heart size is within normal limits. No pleural or pericardial effusion is identified. Lungs are clear. No pneumothorax is noted. There is no mediastinal or axillary lymphadenopathy. There is severe kyphosis with multilevel osteoarthritic changes and disease of thoracic spine. There are surgical changes with fusion seen in the lower cervical spine. Limited evaluation of the upper abdomen is unremarkable. IMPRESSION: Pulmonary embolus seen in both pulmonary arteries. This is amenable for follow-up for pharmaco-mechanical lysis CT was performed with one or more following dose reduction techniques: automated exposure control, adjustment of the mA and kv according to patient's size, or use of a iterative reconstruction technique. DICTATED BY: ZACKARY BARRAZA MD DATE: 01/02/25 1318 ELECTRONICALLY SIGNED BY: ZACKARY BARRAZA MD DATE: 01/02/25 1329 ] PLAN ICU heparin gtt No need for thrombolytic at this time- patient is not hypotensive Follow troponins Cardiac monitoring 2D echo pending Cardiology evaluation for thrombectomy Multimodal pain management Maintain O2 sats above 92% Supplement oxygen as needed Intubate if worsening respiratory failure, obtundation, GCS less than 8 Coags Monitor electrolytes and replace per protocol Potassium goal of 4 Magnesium goal of 2 NEURO: Minimize central acting medications as possible. Fall Precautions. Well lighted room through the day and minimize interruptions through the night to prevent acute delirium. PULMONARY: Supplemental 02 as needed Titrate Fio2 to keep Spo2 > or = 92% DuoNebs and CPT as needed IS hourly while awake for pulmonary hygiene Out of bed to chair as tolerated CARDIOVASCULAR: Follow hemodynamics. Titrate vasopressor to keep MAP >65 or systolic blood pressure >95mmHg DRIPS: Heparin drip LINES: PIV GI & NUTRITION: Continue nutritional support Aspirations precautions Prokinetic agents and laxatives as needed NPO for now for possible procedure KIDNEYS & ELECTROLYTES: Strict monitoring of intake and output Daily weights Avoid nephrotoxic agents Monitor electrolytes and replace as needed Goal urine output of 30mL/hr or 0.5mL/kg/hr ENDOCRINE: Maintain blood glucose between 100-180 at all times. Insulin sliding scale for blood glucose management TSH and a.m. A1c name INFECTIOUS DISEASE: Trend temperature. Dumont-culture if febrile. Micro: [ ] Negative for flu a and B, Negative for COVID Negative for strep Antibiotics: Per primary team Rocephin HEMATOLOGY & COAGULATION: Monitor H&H. Keep Hgb > 7 Transfuse 1 unit of PRBC for Hgb < 7 Transfuse 1 pack of platelets of platelets < 20, 000 Watch for any signs and symptoms of bleeding SKIN: Pressure ulcer prevention per facility protocol Rehab: PT/OT Prophylaxis: GI: Famotidine DVT: Heparin drip per protocol Code Status: Full Resuscitation Disposition: ICU Other: Critical care time This patient required multiple bedside visits to manage the patient, review blood gases, coordinate with respiratory, nurses, review radiology exams, talk to the family members and discuss advanced directives. I personally spent [35] minutes of critical care time in treatment of this patient. This includes patient management, time at bedside, time reviewing tests, labs, appropriate images and studies, documentation, and patient care coordination. This time excludes separately billable procedures. ATTESTATION BY PHYSICIAN I attest that I reviewed and discussed the case with the Physician Travel Director as well as agree with the Physician Travel Director's findings, plans of care, and documentation above. Hugo Burrows MD, [facility] Jan 02, 2025 14:16
[2025-01-02] MEDS ORDERED: MAGNESIUM 2GM PREMIX 50ML 50 ML IV PRN (14:30)
[2025-01-02] MEDS ORDERED: PoTASSium chl 10% ELIXIR 20MEQ 20 MEQ/15 ML UDCUP PO PRN (14:30)
--- NOTE | 2025-01-02 14:36 | NUR ---
PULMONOLOGY CONSULT DONE VALENTIN AUDITOR INTERNAL AT BEDSIDE
--- NOTE | 2025-01-02 14:53 | NUR ---
CARDIOLOGY AT BEDSIDE FOR CONSULT
--- NOTE | 2025-01-02 15:25 | HMCIMG ---
US VENOUS DOPPLER BILATERAL REASON: assess for dvt COMPARISON: None Technique: Bilateral venous doppler ultrasound was performed with spectral analysis and color flow imaging technique. FINDINGS: There is a small partial thrombus seen in the proximal left superficial femoral vein to the remaining left superficial vein appears to be patent. There is a normal appearance of the common femoral, deep femoral, the profunda femoris and popliteal veins. Proximal calf veins appear normal as well. There is normal response to compression and augmentation. There is no evidence of deep venous thrombosis. IMPRESSION: There is a deep vein thrombosis with the partial occlusion in the proximal superficial femoral vein. Otherwise the remaining left superficial vein femoral vein appears to be patent. No evidence of deep vein thrombosis of the right lower extremity.
--- NOTE | 2025-01-02 15:28 | NUR ---
WOUND CARE CONSULT CALLED.
--- NOTE | 2025-01-02 15:35 | CONS ---
Cardiology Consult Note Attending Fur Remodeler: Dr. Roscoe Espinosa Primary Fur Remodeler: Dr. Will Ribera Consulting Physician: ED physician Date of Service: 01/02/2025 Reason for Consult: Bilateral PE HPI: This is a 64y/o female with a past medical history of HTN, HLP, DM2, RA, COPD, on intermittent oxygen therapy, PH, HFpEF (LVEF: 60-65% by echo done 12/10/2024) s/p CardioMEMS insertion, chronic venous insufficiency with venous stasis ulcers, chronic back pain with compression fractures involving T12, L1, and L2, and morbid obesity who presents with shortness of breath of 1 day in duration. The symptoms began spontaneously, when the patient got up to go to the restroom and over the ensuing timeframe were constant and progressively worsened. The symptoms were exacerbated by physical activity and talking and not alleviated by anything, including using supplemental oxygen therapy. Associated symptoms include dizziness, chest pain (pressure like in quality, 8/10 in intensity, and nonradiating), palpitations, hypotension (BP: 88/72 mmHg), 90 degree orthopnea, hypoxia (O2 saturation: 77% on room air), nausea, increasing bilateral lower extremity swelling, and chills. Pertinent negatives include headache, syncope, PND, abdominal pain, vomiting, weight gain, diaphoresis, or fever. The patient's progression of symptoms prompted her to seek a higher level of care. While in the ED, that patient underwent diagnostic imaging, which identified bilateral PE and LLE DVT, right heart strain was identified on a 2D echocardiogram, and laboratory data identified an elevated HS troponin I levels. Cardiology was consulted for treatment recommendations. PMH: Listed above PSH: Listed above FH: Noncontributory SH: Denies alcohol, tobacco, or illicit drug use. Allergies: Coded Allergies: gabapentin (Unverified Allergy, Intermediate, 12/09/24) No Known Drug Allergies (Verified Allergy, Unknown, 05/21/19) Review of systems: General: As per the HPI HEENT: Denies changes in vision, earache or sore throat Neck: Denies pain or stiffness Cardio: As per the HPI Pulm: As per the HPI GI: As per the HPI MSK: Positive for back pain. Heme: Denies anemia, easy bruising, or bleeding. Neuro: As per the HPI Psyche: Positive for anxiety Physical Exam: Vital Signs Date Time Temp Pulse Resp B/P (MAP) Pulse Ox O2 Delivery O2 Flow Rate FiO2 01/02/25 14:49 97.9 120 30 113/91 95 Nasal Cannula* 4 36 General: Alert and oriented. Respiratory distress noted. Ill appearing. HEENT: NC/AT. Oral mucosa is moist. Neck: No masses, JVD, or carotid bruits. Lungs: Respiratory distress noted. Tachypnea noted. SCM. Bilateral air entry. Diminished breath sounds noted throughout. Cardio: Tachycardia noted. Normal S1 and S2, +S4. PMI was not displaced. Abdomen: Soft. NT. ND. Normal active bowel sounds x 4 quadrants. Extremities: 2+ pitting edema noted to the bilateral lower extremities. The bilateral lower extremities are wrapped in Kerlix. Neuro: CN II-XII were grossly intact. No obvious focal deficits. Labs: Laboratory Tests Test 01/02/25 10:07 01/02/25 10:37 01/02/25 11:14 01/02/25 12:05 Range/Units White Blood Count 8.9 4.8-10.8 K/uL Red Blood Count 4.94 4.00-5.50 MIL/uL Hemoglobin 13.5 12.0-16.0 g/dL Hematocrit 44.8 36-48 % Mean Corpuscular Volume 90.7 79-99 fL Mean Corpuscular Hemoglobin 27.3 27.0-33.0 pg Mean Corpuscular Hemoglobin Concent 30.1 L 32.0-36.0 g/dL Red Cell Distribution Width 15.9 H 11.0-15.5 % Platelet Count 252 130-400 K/uL Mean Platelet Volume 9.0 7.5-10.5 fL Immature Granulocyte % (Auto) 0.4 0-1 % Neutrophils (%) (Auto) 59.7 40.0-77.0 % Lymphocytes (%) (Auto) 28.3 21.0-51.0 % Monocytes (%) (Auto) 9.6 3.0-13.0 % Eosinophils (%) (Auto) 1.6 0.0-8.0 % Basophils (%) (Auto) 0.4 0.0-5.0 % Neutrophils # (Auto) 5.3 1.8-7.7 K/uL Lymphocytes # (Auto) 2.5 1.0-4.8 K/uL Monocytes # (Auto) 0.9 0.1-1.0 K/uL Eosinophils # (Auto) 0.14 0.00-0.70 K/uL Basophils # (Auto) 0.04 0.00-0.20 K/uL Absolute Immature Granulocyte (auto 0.04 0-1 K/uL Nucleated Red Blood Cells 0.0 0.0-0.19 % Red Blood Cell Morphology See comments Prothrombin Time 10.9 9.6-11.6 SEC Prothromb Time International Ratio 1.03 0.85-1.15 Activated Partial Thromboplast Time 26.2 L 26.3-35.5 SEC Sodium Level 142 136-145 mmol/L Potassium Level 3.1 L 3.5-5.1 mmol/L Chloride Level 97 L 101-111 mmol/L Carbon Dioxide Level 35 H 21-32 mmol/L Blood Urea Nitrogen 17 7-18 mg/dL Creatinine 1.3 H 0.5-1.0 mg/dL Glomerular Filtration Rate Calc 46 >90 mL/min Random Glucose 140 H 70-105 mg/dL Total Calcium 8.9 8.5-10.1 mg/dL Magnesium Level 1.70 L 1.80-2.40 mg/dL Total Creatine Kinase 98 21-232 U/L Troponin I High Sensitivity 235 *H 510 *H 4-50 ng/L B-Type Natriuretic Peptide 29 0-100 pg/mL Procalcitonin < 0.05 L 0.05-0.5 ng/mL Influenza Type A Antigen Negative For Type A NEGATIVE Influenza Type B Antigen Negative For Type B NEGATIVE SARS-CoV-2, RNA, NAAT NEGATIVE SARS CoV-2 NEGATIVE Group A Streptococcus Rapid negative NEGATIVE Blood Gas Specimen Type Arterial Arterial Blood pH 7.485 H 7.350-7.450 Arterial Blood Partial Pressure CO2 44 32-45 mmHg Arterial Blood Partial Pressure O2 61.5 L 83.0-108.0 mmHg Arterial Blood HCO3 32.7 H 21.0-28.0 mmol/L Arterial Blood Oxygen Saturation 93.1 L 94.0-98.0 % Arterial Blood Base Excess 8.2 H -2.0-3.0 mmol/L Blood Gas Temperature 37.0 35.5-37.0 CELSIUS Blood Gas Flow-by 2.00 0.00-15.00 L/min Blood Gas Vent Mode 2 L NC ROOM AIR FiO2 28.0 % Blood Gas Specimen Comment RR MAAME. RN Test 01/02/25 13:25 Range/Units Troponin I High Sensitivity 1267 *H 4-50 ng/L Assessment: -Acute hypoxemic respiratory failure, currently on NC -Bilateral pulmonary emboli with evidence of RH strain identified on CTA done on 01/02/2025 -LLE DVT identified on venous Doppler done on 01/02/2025 -Elevated troponin (type II RI) -Sinus tachycardia -Electrolyte derangement -Chronic venous insufficiency with venous stasis ulcers -HTN -HLP -DM2 -RA -COPD, on intermittent oxygen therapy -PH -HFpEF (LVEF: 60-65% by echo done 12/10/2024) s/p CardioMEMS insertion -Chronic back pain with compression fractures involving T12, L1, and L2 -Morbid obesity Plan: 1. Bilateral pulmonary emboli with evidence of RH strain identified on CTA done on 01/02/2025 -Cardiac enzymes-HS troponin I: 235>510>1267 -2D echocardiogram done on 01/02/2025 (preliminary) identified evidence of right heart strain. -The patient will continue on the IV heparin infusion and she will undergo a PE thrombectomy with Dr. Manpreet Mac later today. -Please keep the patient NPO -The IV heparin infusion will be stopped by the systems testing laboratory technician staff when they pick the patient up for the procedure. Thank you for this interesting consult and allowing us to participate in the care of your patient. This case was discussed with my Supervising Physician, Dr. Roscoe Espinosa, and the above-mentioned plan was formulated and agreed upon. -Consult Note written by Shreya Parker, MSN, RECRUITING MANAGER, AGACNP-BC SHREYA PARKER Jan 02, 2025 15:35
[2025-01-02] MEDS ORDERED: LIDOCAINE HCL 400MG/20ML VIAL ONE (16:48)
[2025-01-02] MEDS ORDERED: HEParin-NS 1,000 UNIT/500 ML 1,000 ML IV ONE (16:48)
--- NOTE | 2025-01-02 17:08 | HMCSR ---
APPROVED REPORT EXAM: LIMITED Two-dimensional and M-mode echocardiogram with Doppler and color Doppler. Study Details: previous echo 12/10/24 INDICATION ICD: PE, assess RV strain 2D Dimensions RVDd5.6 cmLVEF(%)61.6 (>50%) IVSd1.2 (0.7-1.1cm)FS(%)32 % LVDd3.0 (3.8-5.6cm)LA (2D)3.1 (1.6-4.0cm) PWd1.1 (0.7-1.1cm)Ao Root(2D)3.8 (2.0-3.7cm) LVDs2.0 (2.5-4.0cm)LVOT diam2.1 (1.8-2.4cm) Left Ventricle The left ventricle is normal in size. No obvious wall motion abnormalities were seen. Mild-moderate c oncentric left ventricle hypertrophy is noted. D shaped septum. Left ventricular systolic function is normal, estimated LVEF 55-60%. Indeterminate diastolic function. Right Ventricle The right ventricle is severely dilated and measures 5.6 cm at the base. The right ventricle free wal l is hypokinetic. The right ventricle apex is normal in function. Atria The right atrium is dilated. Aortic Valve The aortic valve is not well visualized. Mitral Valve Mitral valve is not well visualized. Tricuspid Valve The tricuspid valve is normal in structure and function. Moderate tricuspid valve regurgitation. Pulmonic Valve Pulmonic valve is not well visualized. Great Vessels The aortic root was not assessed. The IVC was not assessed. Pericardium No pericardial effusion. Conclusion The right atrium is dilated. The right ventricle is severely dilated and measures 5.6 cm at the base. Mild-moderate concentric left ventricle hypertrophy is noted. D shaped septum. No obvious wall motion abnormalities were seen. Left ventricular systolic function is normal, estimated LVEF 55-60%. Indeterminate diastolic function. The right ventricle free wall is hypokinetic. The right ventricle apex is normal in function. The f indings are consistent with the presence of Ferrell sign, clinical correlation is advised. Moderate tricuspid valve regurgitation. The IVC was not assessed. No pericardial effusion.
[2025-01-02] MEDS ORDERED: MIDAZOLAM HCL 1 MG/ML 2ML VIAL ONE ×3 (17:14→18:46)
[2025-01-02] MEDS ORDERED: HEParin-NS 1,000 UNIT/500 ML 500 ML IV ONE (18:10)
--- NOTE | 2025-01-02 19:14 | PRN ---
Prod Note: PE Thromboectomy PROCEDURE NOTE DATE: Jan 02, 2025 MOLECULAR BIOLOGY DIRECTOR: [ Manpreet Mac MD] ACCESS: [Right] Femoral Vein PROCEDURE(S): 1. IVC Venography 2. Bilateral Pulmonary Angiography 71461 and 46588 3. Right IA Pulmonary Embolism Mechanical Arterial Extirpation of Matter 21901 x 2 4. Right TA Pulmonary Embolism Mechanical Arterial Extirpation of Matter 53294 x1 5. Right Main PA Pulmonary Embolism Mechanical Arterial Extirpation of Matter 42501 x 2 6. Left Superior Pulmonary Embolism Mechanical Arterial Extirpation of Matter 78510 x1 7. Left IA Pulmonary Embolism Mechanical Arterial Extirpation of Matter 05012 x3 8. Left Main PA Pulmonary Embolism Mechanical Arterial Extirpation of Matter 94310 x4 9. Ultrasound guided femoral vein access 10. Right Heart catheterization 24033 11. Moderate Sedation 64393 PROCEDURAL DETAILS: After obtaining written informed consent, the patient was draped and prepped in the usual sterile manner. Conscious sedation was administered monitored by anesthesia. 1. Access: Using ultrasound guidance and micropuncture technique, local anesthetic was given and access was obtained in the right femoral vein with a short 9F sheath. IVC venogram was performed showing patent iliac veins and IVC. The right common femoral vein was free of any thrombus by ultrasound. 2. Diagnostic: A 7F Meridian catheter was advanced to the L pulmonary artery. Right heart cath was performed with a mean PAP of [ 34]mmHg. The catheter was redirected to the R pulmonary artery using [ MP2 catheter]. The wire was exchanged for a Superstiff Amplatz wire and the sheath was upsized to the 24F [place] Dryseal sheath after tract dilation. The 24F Inari Flowtriever device was advanced to the L pulmonary artery. L Pulmonary angiography was performed using the 24F Flowtriever catheter. 3. Intervention (Bilateral Flowtriever Mechanical Extirpation of Matter with use of the T24 Flowtriever Catheter): Angiography was performed showing extensive thrombus in the L distal main branch and inferior branch, TA and interlobar arteries. [ 8] rounds of aspiration thrombectomy were performed with significant extirpation of thrombus from the left IA and TA. Repeat angiography was performed which showed improved pulmonary blush and resolution of thrombus burden. The 0.035 Supercore wire was redirected into the R PA using the [MP2 ] and exchanged for a Superstiff amplatz wire. R PA angiography was performed via the T24 Flowtriever showing [significant mainstem thrombus ]. The 24F Flowtriever was advanced into the R PA over the wire. 5 rounds of aspiration were performed with significant thrombus aspiration. Angiography showed improved blush and no further thrombus burden. Repeat PA pressure were measured and showed minimal reduction therefore the procedure was completed. The catheter was removed over the wire. 4. Hemostasis: The 20F [place] sheath was removed and a Figure of 8 suture was ap plied for hemostasis. 5. Blood loss approx: [60 ]cc KAMARA FINDINGS: 1. HEMODYNAMICS A. Right heart catheterization 1. Pre Embolectomy RA 18, RV 44/16, PA 44/26, mean 34 mmHg, CO/CI: 3.29/1.63, PA sat 61%, Art Sat 99% on 15L NRB 2: Post Embolectomy PA 39/26, mean 30 mmHg, PA Sat 49.3%, Art Sat 94% on 2L NC 2. Pulmonary Angiography, pre thrombectomy: A. Right Main PA - [ Significant thrombus burden] B. Right TA - [ MIld thrombus burden] C. Right IA - [ Mild thrombus burden] D. Left Main PA - [ Mild thrombus burden] D. Left Anterior/superior branches - [Mild thrombus burden ] E. Left IA Pulmonary Artery - [ Large thrombus burden] Pulmonary Angiography: post thrombectomy A. Right Main PA - widely patent, good blush B. Right TA - widely patent, good blush C. Right IA - widely patent, good blush D. Left TA - patent, good blush E. Left IA Pulmonary Artery - patent, good blush 3. IVC Venography Patent vessel, no thrombus visualized. COMPLICATIONS: None TECHNICAL FACTORS: Medications: [ 6000]units heparin Contrast: 190 cc of Isovue. IMPRESSION: 1. Intermediate-High Risk Pulmonary Embolism 2. Successful bilateral Pulmonary Embolectomy with 24F Flowtriever with improvement in systolic PA pressure from [ 34]mmHg to [ 30]mmHg PLAN: 1. Continue IV Heparin gtt and change to po DOAC in AM if no bleeding complications 2. Monitor in CCU 3. Bedrest for 4-6 hours 4. TTE in the am 5. Venous duplex to assess for DVT 7. Remove figure of 8 sutures tomorrow AM MD DORETHA Heredia JAMES R MD Jan 02, 2025 19:14
[2025-01-02] MEDS ORDERED: DEXTROSE 50%-WATER 50 ML DISP.SYRIN IV PRN (19:30)
[2025-01-02] MEDS ORDERED: GLUCAGON 1MG KIT 1 MG ML IM PRN (19:30)
[2025-01-02] MEDS: 0.9%NACL 1000ML 1,000 ML IV SCH (19:48)
[2025-01-02] MEDS: FAMOTIDINE 20MG VIAL IV SCH (20:56)
[2025-01-03] VITALS (37 sets, daily range): BP systolic 87–140; BP diastolic 53–98; PULSE 62–126; RESP 17–50; TEMP 97.9–98.8; O2SAT 93–96
[2025-01-03 02:27] LABS: IMMATURE GRANULOCYTE ABSOLUTE 0.04 K/uL (0-1); NUCLEATED RED BLOOD CELLS 0.0 % (0.0-0.19); PLATELET COUNT (AUTO) 216 K/uL (130-400); RED BLOOD CELL COUNT(AUTO) 4.69 MIL/uL (4.00-5.50); RED CELL DISTRIBUTION WIDTH 15.9 % (11.0-15.5); WHITE BLOOD COUNT (AUTO) 9.1 K/uL (4.8-10.8)
--- NOTE | 2025-01-03 02:51 | NUR ---
BLADDER SCAN PT HAS NOT VOIDED OR HAS VOICED NEED TO VOID. BLADDER SCAN AT THIS TIME 507ML NOTED. JAMEE FARM CONTRACTOR BUYER NOTIFIED. NO ORDERS AT THIS TIME TO GIVE PATIENT MORE TIME. PT DENIES ANY DISCOMFORT AT THIS TIME.
[2025-01-03 03:05] LABS: ASPARTATE AMINOTRANSFERASE 23.0 U/L (10-37); CREATININE 1.2 mg/dL (0.5-1.0); GLOMERULAR FILTR. RATE CALC 51.0 mL/min (>90); GLUCOSE,RANDOM 145.0 mg/dL (70-105); SODIUM SERUM 142.0 mmol/L (136-145); TOTAL PROTEIN, SERUM 5.9 g/dL (6.0-8.3); UREA NITROGEN, BLOOD 17.0 mg/dL (7-18)
[2025-01-03] MEDS ORDERED: BACL10TA PO (04:13)
--- NOTE | 2025-01-03 06:16 | NUR ---
STATUS SPEECH THERAPY TEACHER JAMEE NOTIFIED THAT PT HAS ONLY VOIDED 200ML AND DOES NOT FEEL THE NEED TO VOID.
--- NOTE | 2025-01-03 08:45 | HMCIMG ---
EXAM: CR Chest, single view. CLINICAL HISTORY: Hypoxic respiratory failure. COMPARISON: Prior chest radiograph dated January 02, 2025. FINDINGS: The lungs show no infiltrate or other acute findings. No pleural effusion or pneumothorax. The cardiomediastinal silhouette is within normal limits. No acute osseous abnormality. IMPRESSION: No acute cardiopulmonary pathology is evident. Compared to the prior study, there is no significant interval change. /[place]
[2025-01-03] MEDS: TERBINAFINE HCL 250 MG TABLET PO SCH (09:13)
[2025-01-03] MEDS: BACLOFEN 10 MG TABLET PO PRN (09:13)
--- NOTE | 2025-01-03 10:17 | PN ---
[facility] PROGRESS NOTE Date of Service: Jan 03, 2025 Time of Service: 10:12 SUBJECTIVE: Patient underwent pulmonary thrombectomy. Complications reported. Patient is resting comfortably in bedside chair. She reports postprocedure she is feeling better. REVIEW OF SYSTEMS CONSTITUTIONAL: Denies fevers, chills, or night sweats. No unintentional weight loss reported. NEUROLOGICAL: Denies headache, amaurosis fugax, motor weakness, sensory deficit, vertigo/spinning sensation, gait abnormalities, or tremors. ENT: No hearing loss, otalgia, otorrhea, rhinitis, rhinorrhea, hoarseness, or sore throat. CARDIOVASCULAR: For chest pain, shortness of breath at rest. PULMONARY: Positive for shortness of breaths. Denied any cough, hemoptysis GASTROINTESTINAL: Denies any type of dysphagia to either liquids or solids. Denies nausea, vomiting, pyrosis, early satiety, abdominal pain, diarrhea, constipation, or changes in stool consistency or caliber. Denies coffee-ground emesis, hematemesis, hematochezia, or melanotic stools. GENITOURINARY: Denies frequency, urgency, nocturia, hematuria or incontinence (Storage/Irritative symptoms.) Low urinary stream, straining to void, urinary intermittency or hesitancy, splitting of the voiding stream, terminal dribbling. ENDOCRINOLOGIC: Denies polyuria, polydipsia, polyphagia or heat/cold intolerances. HEMATOLOGIC: Denies thrombophilia/previous clots, or coagulopathy/bleeding disorders. ONCOLOGIC: Denies personal history of malignancy. DERMATOLOGIC: Denies rashes or pruritus. PSYCHIATRIC: Denies any suicidal or homicidal ideation. Denies hallucinations. PHYSICAL EXAM GENERAL APPEARANCE: The patient is awake, alert, and oriented, in no acute cardiopulmonary distress. Patient is unable to lie flat. She prefers to be in a seated position NEUROLOGICAL: Cranial nerves II-XII grossly intact. Motor is 5/5 in bilateral upper and lower extremities proximal to distal. No sensory deficits. HEENT: Face is symmetric. Pupils are equal and reactive. Extraocular movements are intact. NECK: Supple. No JVD. No thyromegaly. No submental, submandibular, pre- /postauricular, occipital or supraclavicular lymphadenopathy. CHEST: Normal chest expansion. No Telemetry. LUNGS: Absence of any rales, rhonchi or any wheezing. CARDIOVASCULAR: Regular. S1 and S2 normal. No appreciable rubs, murmurs or gallops. ABDOMEN: Soft, nontender, and nondistended. There is no rebound, voluntary guarding, or rigidity. : Deferred. No Schuler. EXTREMITIES: Erythema in the lower extremity bilaterally with pitting edema. She has a wound noted in the left lower extremity. Currently has a dressing present. SKIN: No skin breakdown. Vital Signs (last 8hr) Date Time Temp Pulse Resp B/P (MAP) Pulse Ox O2 Delivery O2 Flow Rate FiO2 01/03/25 08:03 98.2 01/03/25 08:00 105 23 98/68 96 Nasal Cannula 5.0 01/03/25 08:00 93 Nasal Cannula* 5 40 01/03/25 07:00 105 26 116/74 98 Nasal Cannula 5.0 01/03/25 06:30 104 21 123/75 95 01/03/25 06:00 101 23 113/77 97 Nasal Cannula 5.0 01/03/25 05:30 105 21 92/67 96 01/03/25 05:00 103 28 106/85 95 Nasal Cannula 5.0 01/03/25 04:30 105 17 101/75 94 01/03/25 04:00 98.1 105 25 108/70 93 Nasal Cannula 5.0 01/03/25 04:00 93 Nasal Cannula* 5 40 01/03/25 03:30 106 27 97/66 94 01/03/25 03:00 103 25 104/65 96 Nasal Cannula 5.0 01/03/25 02:30 103 23 102/73 96 LABS: Laboratory: Test 01/03/25 05:47 01/03/25 02:04 01/02/25 20:28 01/02/25 13:25 Range/Units Lactic Acid Level 2.3 0.8-2.5 mmol/L White Blood Count 9.1 4.8-10.8 K/uL Red Blood Count 4.69 4.00-5.50 MIL/uL Hemoglobin 13.0 12.0-16.0 g/dL Hematocrit 41.7 36-48 % Mean Corpuscular Volume 88.9 79-99 fL Mean Corpuscular Hemoglobin 27.7 27.0-33.0 pg Mean Corpuscular Hemoglobin Concent 31.2 L 32.0-36.0 g/dL Red Cell Distribution Width 15.9 H 11.0-15.5 % Platelet Count 216 130-400 K/uL Mean Platelet Volume 9.4 7.5-10.5 fL Immature Granulocyte % (Auto) 0.4 0-1 % Neutrophils (%) (Auto) 58.5 40.0-77.0 % Lymphocytes (%) (Auto) 28.1 21.0-51.0 % Monocytes (%) (Auto) 11.1 3.0-13.0 % Eosinophils (%) (Auto) 1.5 0.0-8.0 % Basophils (%) (Auto) 0.4 0.0-5.0 % Neutrophils # (Auto) 5.3 1.8-7.7 K/uL Lymphocytes # (Auto) 2.6 1.0-4.8 K/uL Monocytes # (Auto) 1.0 0.1-1.0 K/uL Eosinophils # (Auto) 0.14 0.00-0.70 K/uL Basophils # (Auto) 0.04 0.00-0.20 K/uL Absolute Immature Granulocyte (auto 0.04 0-1 K/uL Nucleated Red Blood Cells 0.0 0.0-0.19 % Activated Partial Thromboplast Time > 139.0 #*H 26.3-35.5 SEC Sodium Level 142 136-145 mmol/L Potassium Level 3.5 3.5-5.1 mmol/L Chloride Level 99 L 101-111 mmol/L Carbon Dioxide Level 33 H 21-32 mmol/L Blood Urea Nitrogen 17 7-18 mg/dL Creatinine 1.2 H 0.5-1.0 mg/dL Glomerular Filtration Rate Calc 51 >90 mL/min Random Glucose 145 H 70-105 mg/dL Total Calcium 8.6 8.5-10.1 mg/dL Magnesium Level 2.30 1.80-2.40 mg/dL Total Bilirubin 0.5 0.2-1.0 mg/dL Aspartate Amino Transf (AST/SGOT) 23 10-37 U/L Alanine Aminotransferase (ALT/SGPT) 26 12-78 U/L Alkaline Phosphatase 100 50-136 U/L Total Protein 5.9 L 6.0-8.3 g/dL Albumin 2.7 L 3.5-5.0 g/dL Thyroid Stimulating Hormone (TSH) 1.22 # 0.36-3.74 uIU/mL Whole Blood Glucose 121 H 70-110 MG/DL Troponin I High Sensitivity 1267 *H 4-50 ng/L Test 01/02/25 12:05 01/02/25 10:37 01/02/25 10:07 Range/Units Blood Gas Specimen Type Arterial Arterial Blood pH 7.485 H 7.350-7.450 Arterial Blood Partial Pressure CO2 44 32-45 mmHg Arterial Blood Partial Pressure O2 61.5 L 83.0-108.0 mmHg Arterial Blood HCO3 32.7 H 21.0-28.0 mmol/L Arterial Blood Oxygen Saturation 93.1 L 94.0-98.0 % Arterial Blood Base Excess 8.2 H -2.0-3.0 mmol/L Blood Gas Temperature 37.0 35.5-37.0 CELSIUS Blood Gas Flow-by 2.00 0.00-15.00 L/min Blood Gas Vent Mode 2 L NC ROOM AIR FiO2 28.0 % Blood Gas Specimen Comment RR MAAME. RN Influenza Type A Antigen Negative For Type A NEGATIVE Influenza Type B Antigen Negative For Type B NEGATIVE SARS-CoV-2, RNA, NAAT NEGATIVE SARS CoV-2 NEGATIVE Group A Streptococcus Rapid negative NEGATIVE Red Blood Cell Morphology See comments Prothrombin Time 10.9 9.6-11.6 SEC Prothromb Time International Ratio 1.03 0.85-1.15 Hemoglobin A1c 7.3 H 4.0-6.0 % Estimated Average Glucose (eAG) 163 H 70-126 mg/dL Total Creatine Kinase 98 21-232 U/L C-Reactive Protein, Quantitative 7.40 H 0.5-3.0 mg/L B-Type Natriuretic Peptide 29 0-100 pg/mL Procalcitonin < 0.05 L 0.05-0.5 ng/mL Current Medications Medications (Trade) Dose Ordered Sig/[place] Route PRN Reason Start Time Stop Time Status Last Admin Dose Admin Acetaminophen (TYLenol 500MG TAB) 500 mg Q6H PRN PO MILD PAIN (1-3) 01/02/25 14:30 02/01/25 14:29 Acetaminophen/ Codeine Phosphate (TYLenol-coDEINE TAB) 1 tab Q6H PRN PO MODERATE PAIN (4-6) 01/03/25 07:00 02/02/25 06:59 Atorvastatin Calcium (LIPItor 10MG) 10 mg DAILY PO 01/03/25 09:00 02/02/25 08:59 01/03/25 09:13 10 MG Baclofen (Baclofen) 5 mg TIDP PRN PO Back Pain 01/03/25 07:00 02/02/25 06:59 01/03/25 09:13 5 MG Ceftriaxone Sodium (ROCEphine 1G INJ) 1 gm Q24H IVPB 01/02/25 15:00 01/02/25 15:19 DC Ceftriaxone Sodium (Rocephin 2gm Inj) 2 gm Q24H IVPB 01/03/25 16:00 01/13/25 15:59 Dextrose (D50w) 50 ml AD PRN IV HYPOGLYCEMIA PROTOCOL 01/02/25 19:30 02/01/25 19:29 Famotidine (Pepcid 20mg Vial) 20 mg Q24H IV 01/02/25 21:00 02/01/25 20:59 01/02/25 20:56 20 MG Glucagon (Glucagon 1mg Kit) 1 mg AD PRN IM HYPOGLYCEMIA PROTOCOL 01/02/25 19:30 02/01/25 19:29 Heparin Sodium (Porcine) (HEParin 5,000 UNIT VIAL) *calculation based on ACTUAL B... AD PRN IV HEPARIN PROTOCOL 01/02/25 15:00 02/01/25 14:59 Heparin Sodium/ Dextrose 250 ml @ 0 mls/hr Q6H IV 01/02/25 15:00 02/01/25 14:59 01/03/25 09:29 0 MLS/HR Insulin Human Regular (humuLIN R 100 UNIT/ML 3ML) INSULIN SLIDING SCAL... ACHS SQ 01/02/25 21:00 02/01/25 20:59 Magnesium Sulfate 50 ml @ 0 mls/hr PROTOCOL PRN IV hypomagnesemia 01/02/25 14:30 02/01/25 14:29 Pantoprazole Sodium (PROTonix 40MG TAB) 40 mg DAILY PO 01/03/25 09:00 02/02/25 08:59 01/03/25 09:14 40 MG Potassium Chloride 100 ml @ 100 mls/hr AD PRN IV POTASSIUM PROTOCOL 01/02/25 14:30 02/01/25 14:29 Potassium Chloride (K-Dur/Klor-Con 20meq) 20 meq AD PRN PO POTASSIUM PROTOCOL 01/02/25 14:30 02/01/25 14:29 Potassium Chloride (KCl 10% Elixir 20meq/15ml) 20 meq AD PRN PO POTASSIUM PROTOCOL 01/02/25 14:30 02/01/25 14:29 Pramipexole Dihydrochloride (miraPEX 0.25MG TAB) 0.5 mg HS PO 01/03/25 21:00 02/02/25 20:59 Sodium Chloride 1,000 ml @ 150 mls/hr Q6H40M IV 01/02/25 19:30 01/02/25 23:29 DC 01/02/25 19:48 150 MLS/HR Terbinafine HCl (Lamisil) 250 mg DAILY PO 01/03/25 09:00 02/02/25 08:59 01/03/25 09:13 250 MG DIAGNOSTICS / RADIOLOGY: [ ] ASSESSMENT: Bilateral PE POA Acute on chronic hypoxic respiratory failure secondary to PE Troponin elevation likely in setting of PE Lower back pain MRI showing chronic compression fracture of T12 vertebrae 12/16/2024 Bilateral lower extremity edema with chronic wound History of venous stasis History of Pulmonary hypertension History of CardioMEMS device loose Obesity Obstructive sleep apnea Hypertension Hyperlipidemia CKD stage 3 PLAN: Continue Zosyn Trend WBCs Follow-up cultures Continue pramipexole O2 nasal cannula as needed Follow up With Pulmonary/critical Care Medicine Continue atorvastatin Continue heparin drip Cardiology Monitor blood pressure Follow up with Cardiology Heart healthy diet GI prophylaxis with pantoprazole No need for IV fluids Trend a.m. BMP Replete electrolytes as necessary DVT prophylaxis with heparin Trend a.m. CBC Full code Case was discussed with patient's nurse at bedside Attention time greater than 30 minutes RALPH WHITTAKER IV, MD Jan 03, 2025 10:17
--- NOTE | 2025-01-03 10:33 | PN ---
[facility] PROGRESS NOTE Date Patient Seen: Jan 03, 2025 Time of Visit: 10:33 Supervising Physician: FANNY MILIAN MD Primary Care Physician: VINCE HASSAN MD Outpatient Specialists: [ ] Inpatient Consults: AUREA PROBLEM LIST: Acute on chronic hypoxic respiratory failure POA Bilateral PE S/P Successful Bilateral Pulmonary Embolectomy 01/03/25 NSTEMI POA Left SFV + DVT Lower back pain MRI showing chronic compression fracture of T12 vertebrae 2024 Bilateral lower extremity edema with chronic wound History of venous stasis History of Pulmonary hypertension History of CardioMEMS Obesity Obstructive sleep apnea Hypertension Hyperlipidemia CKD stage 3 INTERVAL HISTORY: Pt is awake alert and oriented x 3. S/P successful Bilateral pulmonary embolectomy. Denies chest pain. No major overnight events. She continues on heparin gtt per protocol. Plans to switch over to eliquis in the next 24 hours if no s/s of bleeding. 2D echo being performed at the bedside per cardiology recs. Cr 1.2. Glucose 145mg/dl. Lactic 2.8. Albumin 2.3. ON chest XR No acute cardiopulmonary pathology is evident. Compared to the prior study, there is no significant interval change. We will continue to follow cardiology recommendations. REVIEW OF SYSTEMS: Const: + fatigue,+ mild anxiety Eyes: no recent vision problems ENT: No congestion, ear pain, or sore throat C/V: + chest pain, palpitations, + bilateral pitting edema to lower extremities Resp: + shortness for breath, dyspnea on minimal exertion GI: No abdominal pain, nausea, vomiting, constipation, or diarrhea : No incontinence of or dyuria M/S: + bilateral lower extremity swelling+ back pain Skin: + chronic venous stasis ulcers to bilateral lower extremities Neuro: -numbness weakness and dizziness Psych: no depression or anxiety Heme: no abnormal bruising or bleeding Endocrinology: + thyroid mass Lymph: [no swollen glands PHYSICAL EXAM: GENERAL: alert, weak, awake oriented x 3, fatigue HEENT: EOMI, Sclera non icteric, moist mucosa NECK: History of thyroid mass, no JVD, trachea midline LUNGS: Diminished breath sounds bilaterally. No wheezes HEART: Regular rate and rhythm. Normal S1 and S2, without murmurs ABD: Abdomen soft, nontender. Bowel sounds present EXT: No clubbing cyanosis or edema NEURO: Alert and oriented to person, follows commands Vital Signs (last 8hr) Date Time Temp Pulse Resp B/P (MAP) Pulse Ox O2 Delivery O2 Flow Rate FiO2 01/03/25 08:03 98.2 01/03/25 08:00 105 23 98/68 96 Nasal Cannula 5.0 01/03/25 08:00 93 Nasal Cannula* 5 40 01/03/25 07:00 105 26 116/74 98 Nasal Cannula 5.0 01/03/25 06:30 104 21 123/75 95 01/03/25 06:00 101 23 113/77 97 Nasal Cannula 5.0 01/03/25 05:30 105 21 92/67 96 01/03/25 05:00 103 28 106/85 95 Nasal Cannula 5.0 01/03/25 04:30 105 17 101/75 94 01/03/25 04:00 98.1 105 25 108/70 93 Nasal Cannula 5.0 01/03/25 04:00 93 Nasal Cannula* 5 40 01/03/25 03:30 106 27 97/66 94 01/03/25 03:00 103 25 104/65 96 Nasal Cannula 5.0 LABS: Hematology Labs: Test 01/03/25 02:04 01/02/25 10:07 Range/Units White Blood Count 9.1 4.8-10.8 K/uL Red Blood Count 4.69 4.00-5.50 MIL/uL Hemoglobin 13.0 12.0-16.0 g/dL Hematocrit 41.7 36-48 % Mean Corpuscular Volume 88.9 79-99 fL Mean Corpuscular Hemoglobin 27.7 27.0-33.0 pg Mean Corpuscular Hemoglobin Concent 31.2 L 32.0-36.0 g/dL Red Cell Distribution Width 15.9 H 11.0-15.5 % Platelet Count 216 130-400 K/uL Mean Platelet Volume 9.4 7.5-10.5 fL Immature Granulocyte % (Auto) 0.4 0-1 % Neutrophils (%) (Auto) 58.5 40.0-77.0 % Lymphocytes (%) (Auto) 28.1 21.0-51.0 % Monocytes (%) (Auto) 11.1 3.0-13.0 % Eosinophils (%) (Auto) 1.5 0.0-8.0 % Basophils (%) (Auto) 0.4 0.0-5.0 % Neutrophils # (Auto) 5.3 1.8-7.7 K/uL Lymphocytes # (Auto) 2.6 1.0-4.8 K/uL Monocytes # (Auto) 1.0 0.1-1.0 K/uL Eosinophils # (Auto) 0.14 0.00-0.70 K/uL Basophils # (Auto) 0.04 0.00-0.20 K/uL Absolute Immature Granulocyte (auto 0.04 0-1 K/uL Nucleated Red Blood Cells 0.0 0.0-0.19 % Red Blood Cell Morphology See comments Chemistry Labs: Test 01/03/25 05:47 01/03/25 02:04 01/02/25 20:28 01/02/25 13:25 Range/Units Lactic Acid Level 2.3 0.8-2.5 mmol/L Sodium Level 142 136-145 mmol/L Potassium Level 3.5 3.5-5.1 mmol/L Chloride Level 99 L 101-111 mmol/L Carbon Dioxide Level 33 H 21-32 mmol/L Blood Urea Nitrogen 17 7-18 mg/dL Creatinine 1.2 H 0.5-1.0 mg/dL Glomerular Filtration Rate Calc 51 >90 mL/min Random Glucose 145 H 70-105 mg/dL Total Calcium 8.6 8.5-10.1 mg/dL Magnesium Level 2.30 1.80-2.40 mg/dL Total Bilirubin 0.5 0.2-1.0 mg/dL Aspartate Amino Transf (AST/SGOT) 23 10-37 U/L Alanine Aminotransferase (ALT/SGPT) 26 12-78 U/L Alkaline Phosphatase 100 50-136 U/L Total Protein 5.9 L 6.0-8.3 g/dL Albumin 2.7 L 3.5-5.0 g/dL Thyroid Stimulating Hormone (TSH) 1.22 # 0.36-3.74 uIU/mL Whole Blood Glucose 121 H 70-110 MG/DL Troponin I High Sensitivity 1267 *H 4-50 ng/L Test 01/02/25 10:07 Range/Units Hemoglobin A1c 7.3 H 4.0-6.0 % Estimated Average Glucose (eAG) 163 H 70-126 mg/dL Total Creatine Kinase 98 21-232 U/L C-Reactive Protein, Quantitative 7.40 H 0.5-3.0 mg/L B-Type Natriuretic Peptide 29 0-100 pg/mL Procalcitonin < 0.05 L 0.05-0.5 ng/mL Coagulation Labs: Test 01/03/25 02:04 01/02/25 10:07 Range/Units Activated Partial Thromboplast Time > 139.0 #*H 26.3-35.5 SEC Prothrombin Time 10.9 9.6-11.6 SEC Prothromb Time International Ratio 1.03 0.85-1.15 DIAGNOSTICS / RADIOLOGY RESULTS: [facility] [address] [place] [address] IMAGING REPORT Signed PATIENT: ST[place]KE MR#: [id number] : 1960 SEX: F AGE: 64 LOCATION: 2B ORDER 230 STATUS: ADM IN REPORT#: [id number] SERVICE [id number] REASON: hypoxic resp failure ORDERING PHYSICIAN: VALENTIN POLLOCK PROCEDURE: CXR1VW - CHEST 1VW EXAM: CR Chest, single view. CLINICAL HISTORY: Hypoxic respiratory failure. COMPARISON: Prior chest radiograph dated January 02, 2025. FINDINGS: The lungs show no infiltrate or other acute findings. No pleural effusion or pneumothorax. The cardiomediastinal silhouette is within normal limits. No acute osseous abnormality. IMPRESSION: No acute cardiopulmonary pathology is evident. Compared to the prior study, there is no significant interval change. /[place] DICTATED BY: CHRIS WASHBURN Jr., MD DATE: 01/03/25943 ELECTRONICALLY SIGNED BY: CHRIS WASHBURN Jr., MD DATE: 01/03/25943 PLAN heparin gtt per CV protocol- switch over to DOAC in the next 24 hours if no s/s of bleeding No need for thrombolytic at this time- patient is not hypotensive continue cardiac monitorinf Multimodal pain management Maintain O2 sats above 92% Supplement oxygen as needed Coags Monitor electrolytes and replace per protocol Potassium goal of 4 Magnesium goal of 2 NEURO: Minimize central acting medications as possible. Fall Precautions. Well lighted room through the day and minimize interruptions through the night to prevent acute delirium. PULMONARY: Supplemental 02 as needed Titrate Fio2 to keep Spo2 > or = 92% DuoNebs and CPT as needed IS hourly while awake for pulmonary hygiene Out of bed to chair as tolerated CARDIOVASCULAR: Follow hemodynamics. Titrate vasopressor to keep MAP >65 or systolic blood pressure >95mmHg DRIPS: Heparin drip LINES: PIV GI & NUTRITION: Continue nutritional support Aspirations precautions Prokinetic agents and laxatives as needed NPO for now for possible procedure KIDNEYS & ELECTROLYTES: Strict monitoring of intake and output Daily weights Avoid nephrotoxic agents Monitor electrolytes and replace as needed Goal urine output of 30mL/hr or 0.5mL/kg/hr ENDOCRINE: Maintain blood glucose between 100-180 at all times. Insulin sliding scale for blood glucose management TSH and a.m. A1c name INFECTIOUS DISEASE: Trend temperature. Dumont-culture if febrile. Micro: [ ] Negative for flu a and B, Negative for COVID Negative for strep Antibiotics: Per primary team Rocephin HEMATOLOGY & COAGULATION: Monitor H&H. Keep Hgb > 7 Transfuse 1 unit of PRBC for Hgb < 7 Transfuse 1 pack of platelets of platelets < 20, 000 Watch for any signs and symptoms of bleeding SKIN: Pressure ulcer prevention per facility protocol Rehab: PT/OT Prophylaxis: GI: Famotidine DVT: Heparin drip per protocol Code Status: Full Resuscitation Disposition: ICU Other: Critical care time This patient required multiple bedside visits to manage the patient, review blood gases, coordinate with respiratory, nurses, review radiology exams, talk to the family members and discuss advanced directives. I personally spent [35] minutes of critical care time in treatment of this patient. This includes patient management, time at bedside, time reviewing tests, labs, appropriate images and studies, documentation, and patient care clinical education coordinator rdination. This time excludes separately billable procedures. ATTESTATION BY PHYSICIAN I reviewed the documentation, medical decision making, and treatment plan as noted by the mid-level provider above. I agree with the findings and plan of care. Fanny Milian MD, [facility] Jan 03, 2025 10:33
--- NOTE | 2025-01-03 11:16 | PN ---
This is a 64-year-old female with a history of hypertension, hyperlipidemia, type 2 diabetes mellitus, rheumatoid arthritis, chronic obstructive pulmonary disease on intermittent supplemental oxygen, heart failure with preserved ejection fraction, chronic venous insufficiency with venous stasis ulcers and morbid obesity. She was admitted 01/02/2025 secondary to bilateral pulmonary emboli with evidence of right heart strain and left lower extremity DVT involving the left superficial femoral vein. She underwent bilateral PE thrombectomy by Dr. Manpreet Mac 01/02/2025. She is currently on IV heparin. Most recent blood pressure is 130/98. She is currently in sinus tachycardia with heart rates in the 100s. White blood count 9.1, hemoglobin 13.0, hematocrit 41.7, platelets 216, creatinine 1.2, potassium 3.5, magnesium 2.30, lactic acid 2.3 down from 2.8, TSH 1.22. Troponin trend as follows: 235 --> 510 --> 1267. Chest x-ray is negative for pleural effusion or consolidation. Venous Doppler 01/02/2025 showed deep vein thrombosis with partial occlusion in the proximal left superficial femoral vein, no evidence of DVT of the right lower extremity. Echocardiogram 01/02/2025 shows an ejection fraction of 55-60% with [id number] LVH, D shaped septum, right ventricle severely dilated measuring 5.6 cm at base, RV free wall hypokinetic, moderate tricuspid valve regurgitation. She reports bilateral leg pain which she attributes to restless legs syndrome. She also reports mild shortness of breath while laying which improved with elevation of the bed. On exam she is mildly distressed due to leg pain and removal of right groin adhesive, regular rhythm, tachycardic, occasion bilateral expiratory wheezing, bilateral lower extremity edema is noted with erythema to the lower legs. The hlvska-cp-[id number] suture discontinued. Assessment: 1. Bilateral pulmonary emboli with right heart strain status post PE thrombectomy 01/02/2025. 2. Left superficial femoral vein DVT. 3. Type 2 [place] secondary to pulmonary embolism. 4. Sinus tachycardia. 5. Hypertension. 6. Type 2 diabetes mellitus. 7. Hyperlipidemia. 8. Rheumatoid arthritis. 9. Chronic obstructive pulmonary disease. Plan: 1. She was admitted for bilateral pulmonary emboli and left lower extremity DVT. She is status post PE thrombectomy 01/02/2025. We will continue IV heparin later today and start Eliquis 10 mg twice daily x7 days, then transition to Eliquis 5 mg twice daily. 2. Repeat echocardiogram today. 3. Start metoprolol tartrate 25 mg twice daily. 4. Bed to chair. 5. We will follow the patient. Vitals/Labs Vital Signs Date Time Temp Pulse Resp B/P (MAP) Pulse Ox O2 Delivery O2 Flow Rate FiO2 01/03/25 09:00 109 33 130/98 95 Nasal Cannula 5.0 01/03/25 08:03 98.2 01/03/25 08:00 40 Laboratory Tests 01/03/25 02:04 MITZY ARDON PAC Jan 03, 2025 11:16
[2025-01-03 17:59] LABS: APPEARANCE,URINE CLEAR (CLEAR); GLUCOSE, URINE (UA) >=1000 mg/dL (NEGATIVE); LEUKOCYTE ESTERASE ,URINE NEGATIVE Leu/uL (NEGATIVE); NITRATE,URINE NEGATIVE (NEGATIVE); OCCULT BLOOD,URINE NEGATIVE (NEGATIVE)
[2025-01-03 18:01] LABS: ADD UA MICROSCOPIC YES
[2025-01-03 18:02] LABS: SQUAMOUS EPITHELIAL CELL,UR MOD /HPF (0-2)
[2025-01-04] VITALS (27 sets, daily range): BP systolic 94–145; BP diastolic 45–90; PULSE 59–117; RESP 19–41; TEMP 98.2–99.2; O2SAT 88–97
--- NOTE | 2025-01-04 00:24 | HMCSR ---
APPROVED REPORT EXAM: Two-dimensional and M-mode echocardiogram with Doppler and color Doppler. Study Details: HTN ,HLD , CHF , Obesity INDICATION ICD: pulmonary embolism 2D Dimensions RVDd5.9 cmLVEF(%)95.4 (>50%) IVSd1.3 (0.7-1.1cm)FS(%)70 % LVDd3.6 (3.8-5.6cm)LA (2D)2.6 (1.6-4.0cm) PWd0.8 (0.7-1.1cm)Ao Root(2D)3.9 (2.0-3.7cm) IVSs2.0 cmLVOT diam2.1 (1.8-2.4cm) LVDs1.1 (2.5-4.0cm)IVC diam1.5 cm PWs1.6 cm M-Mode Dimensions EPSS0.5 cm LA (MM)3.0 (1.6-4.0cm) Ao Root(MM)2.9 (2.0-3.7cm) Aortic Valve AoV Vmax1.1 m/Quinn Peak GR4.5 mmHgLVOT Vmax0.6 m/s AoV VTI0.1 mAo Mean GR3.3 mmHgLVOT VTI0.11 m CHRISTOPHER (VMAX)2.00 cm2AVA (VTI) 2.4 cm2 Mitral Valve MV E Vmax47.5 cm/sDECEL Jcvs693 ms MV A Vmax82.8 cm/sP 1/2 T50 ms E/A ratio0.6MVA (PHT)4.4 cm2 TDI E/E' Yntgkn65.2E/E' Lateral7.7 Medial E' Peak V2.48 cm/sLateral E' Peak V6.18 cm/s Pulmonary Valve PV Vmax0.8 m/sPV VTI0.11 mPV Mean GR1.3 mmHg PV Peak GR2.7 mmHg Left Ventricle The left ventricle is normal in size. No regional wall motion abnormalities noted. Mild-moderate conc entric left ventricular hypertrophy. D shaped septum. Left ventricle systolic function is normal, e stimated LVEF 55 to 60%. Indeterminate diastolic dysfunction. Right Ventricle The right ventricle is severely dilated, basal diameter 5.9 cm The right ventricle free wall is hypok inetic. The right ventricle apex is hyper dynamic. The findings indicate the presence of Alanis si gn. Atria The left atrium size is normal. The right atrium was not well-visualized. Aortic Valve Aortic valve is trileaflet. No aortic regurgitation is present. There is no aortic valvular stenosis. Mitral Valve The mitral valve is mildly thickened. Trace mitral regurgitation. There is no mitral valve stenosis. Tricuspid Valve Tricuspid valve is not well visualized. Pulmonic Valve Pulmonic valve is not well visualized. Great Vessels The aortic root is normal in size. The IVC is normal in size and collapses >50% with inspiration. Pericardium No pericardial effusion. Other Information Quality : Technically Limited Technically limited study due to Patient could not be placed onto left side.Patient on Positive Pres sure VentIlation. Conclusion The right ventricle is severely dilated, basal diameter 5.9 cm Mild-moderate concentric left ventricular hypertrophy. D shaped septum. No regional wall motion abnormalities noted. Left ventricle systolic function is normal, estimated LVEF 55 to 60%. Indeterminate diastolic dysfunction. The right ventricle free wall is hypokinetic. The right ventricle apex is hyper dynamic. The findin gs indicate the presence of Alanis sign. Trace mitral regurgitation. The right sided pressures, specifically the gradients across the tricuspid valve were not well-visual ized. Of note is that the IVC is no longer dilated and collapses greater than 50% with respiratory v ariation. No pericardial effusion. When compared to the previous study the IVC is no longer dilated and it collapses greater than 50% wi th respiratory variation.
[2025-01-04 04:36] LABS: IMMATURE GRANULOCYTE ABSOLUTE 0.06 K/uL (0-1); NUCLEATED RED BLOOD CELLS 0.0 % (0.0-0.19); PLATELET COUNT (AUTO) 181 K/uL (130-400); RED BLOOD CELL COUNT(AUTO) 3.82 MIL/uL (4.00-5.50); RED CELL DISTRIBUTION WIDTH 15.6 % (11.0-15.5); WHITE BLOOD COUNT (AUTO) 9.1 K/uL (4.8-10.8)
[2025-01-04 04:52] LABS: ASPARTATE AMINOTRANSFERASE 19.0 U/L (10-37); CREATININE 1.2 mg/dL (0.5-1.0); GLOMERULAR FILTR. RATE CALC 51.0 mL/min (>90); GLUCOSE,RANDOM 124.0 mg/dL (70-105); SODIUM SERUM 140.0 mmol/L (136-145); TOTAL PROTEIN, SERUM 5.6 g/dL (6.0-8.3); UREA NITROGEN, BLOOD 16.0 mg/dL (7-18)
--- NOTE | 2025-01-04 08:37 | PN ---
This is a 64-year-old female with a history of hypertension, hyperlipidemia, type 2 diabetes mellitus, rheumatoid arthritis, chronic obstructive pulmonary disease on intermittent supplemental oxygen, heart failure with preserved ejection fraction, chronic venous insufficiency with venous stasis ulcers and morbid obesity. She was admitted 01/02/2025 secondary to bilateral pulmonary emboli with evidence of right heart strain and left lower extremity DVT involving the left superficial femoral vein. She underwent bilateral PE thrombectomy by Dr. Manpreet Mac 01/02/2025. Yesterday evening she was transitioned to Eliquis 10 mg twice daily. She is currently in sinus rhythm with heart rates in the 80s. Her most recent blood pressure is 113/63 with a low of 87/65 overnight. O2 saturation is 92% with a low of 86% overnight. White blood count 9.1, hemoglobin 10.5, hematocrit 34.1, platelets 181, creatinine 1.2, potassium 3.4. Chest x-ray is negative for pneumothorax, pleural effusion or consolidation. Venous Doppler 01/02/2025 showed deep vein thrombosis with partial occlusion in the proximal left superficial femoral vein, no evidence of DVT of the right lower extremity. Repeat echocardiogram 01/03/2025 shows an ejection fraction of 55-60% with [id number] LVH, D shaped septum, right ventricle severely dilated with basal diameter 5.9 cm, RV free wall hypokinetic, RV apex hyperdynamic (Alanis sign). The right-sided pressures specifically the gradients across the tricuspid valve were not well-visualized in the IVC is no longer dilated and collapses greater than 50% with respiratory variation. This morning she is resting with CPAP in place. She states that her breathing is okay. On exam, she is in no acute distress, regular rate and rhythm, decreased air entry to left lung base, bilateral lower extremity edema is noted with erythema to the lower legs. Assessment: Discussed with Dr. Boles. 1. Bilateral pulmonary emboli with right heart strain status post PE thrombectomy 01/02/2025. 2. Left superficial femoral vein DVT. 3. Type 2 [place] in the setting of pulmonary embolism. 4. Sinus tachycardia. 5. Hypertension. 6. Type 2 diabetes mellitus. 7. Hyperlipidemia. 8. Rheumatoid arthritis. 9. Chronic obstructive pulmonary disease. Plan: 1. She was admitted for bilateral pulmonary emboli and left lower extremity DVT. She is status post PE thrombectomy 01/02/2025. Yesterday evening she was transitioned to Eliquis 10 mg twice daily. She was somewhat hypotensive overnight with improved blood pressures this morning. She had a minimum oxygen saturation of 86%. She is on CPAP via nasal pillow but sleeps with her mouth open resulting in desaturations. Recommend outpatient evaluation by pulmonology for alternative masks. 2. Continue Eliquis 10 mg twice daily x 7 days, then taper to 5 mg twice daily. 3. Continue atorvastation 10 mg once daily. 4. We will follow the patient. Vitals/Labs Vital Signs Date Time Temp Pulse Resp B/P (MAP) Pulse Ox O2 Delivery O2 Flow Rate FiO2 01/04/25 07:00 59 22 113/63 92 CPAP 6.0 01/04/25 04:00 99.0 01/04/25 04:00 55 Laboratory Tests 01/04/25 04:29 MITZY ARDON PAC Jan 04, 2025 08:37
--- NOTE | 2025-01-04 10:02 | PN ---
[facility] PROGRESS NOTE Date Patient Seen: Jan 04, 2025 Time of Visit: 10:02 Supervising Physician: Ryland Borden MD Primary Care Physician: VINCE HASSAN MD Outpatient Specialists: [ ] Inpatient Consults: AUREA PROBLEM LIST: Acute on chronic hypoxic respiratory failure POA Bilateral PE S/P Successful Bilateral Pulmonary Embolectomy 01/03/25 NSTEMI POA Left SFV + DVT Lower back pain MRI showing chronic compression fracture of T12 vertebrae 0 12/16/2024 Bilateral lower extremity edema with chronic wound History of venous stasis History of Pulmonary hypertension History of CardioMEMS Obesity Obstructive sleep apnea Hypertension Hyperlipidemia CKD stage 3 INTERVAL HISTORY: Pt is awake alert and oriented x 3. no major overnight events. she is hemodynamically stable. No major overnight events. Pt tolerating CPAP at HS. She has been transitioned to eliquis po. No s/s of bleeding although HH did have a slight drop to 10.5 /34.1, there is no reports of bloody stools, no hematoma to groin site. CR stabel 1.2 per RN pt desaturates with Home CPAP due its via nasal pillows pt is a mouth breather, recommend to try inpatient mask. Will continue to follow cardiology recommendations. Chest XR with no consolidation or infiltrates, some vascular congestion. Urine output 300 ml i the last 24 hrs and stacie balance +1.9 L will start light diuresing. REVIEW OF SYSTEMS: Const: + fatigue,+ mild anxiety Eyes: no recent vision problems ENT: No congestion, ear pain, or sore throat C/V: + chest pain, palpitations, + bilateral pitting edema to lower extremities Resp: + shortness for breath, dyspnea on minimal exertion GI: No abdominal pain, nausea, vomiting, constipation, or diarrhea : No incontinence of or dyuria M/S: + bilateral lower extremity swelling+ back pain Skin: + chronic venous stasis ulcers to bilateral lower extremities Neuro: -numbness weakness and dizziness Psych: no depression or anxiety Heme: no abnormal bruising or bleeding Endocrinology: + thyroid mass Lymph: [no swollen glands PHYSICAL EXAM: GENERAL: alert, weak, awake oriented x 3, fatigue HEENT: EOMI, Sclera non icteric, moist mucosa NECK: History of thyroid mass, no JVD, trachea midline LUNGS: Diminished breath sounds bilaterally. No wheezes HEART: Regular rate and rhythm. Normal S1 and S2, without murmurs ABD: Abdomen soft, nontender. Bowel sounds present EXT: No clubbing cyanosis or edema NEURO: Alert and oriented to person, follows commands Vital Signs (last 8hr) Date Time Temp Pulse Resp B/P (MAP) Pulse Ox O2 Delivery O2 Flow Rate FiO2 01/04/25 07:00 59 22 113/63 92 CPAP 6.0 01/04/25 06:00 86 41 101/59 97 CPAP 6.0 01/04/25 05:00 86 23 104/45 97 CPAP 6.0 01/04/25 04:00 99.0 87 23 92 CPAP 6.0 01/04/25 04:00 97 CPAP+ 8 55 01/04/25 03:00 86 22 95/75 94 CPAP 6.0 LABS: Hematology Labs: Test 01/04/25 04:29 01/02/25 10:07 Range/Units White Blood Count 9.1 4.8-10.8 K/uL Red Blood Count 3.82 L 4.00-5.50 MIL/uL Hemoglobin 10.5 L 12.0-16.0 g/dL Hematocrit 34.1 L 36-48 % Mean Corpuscular Volume 89.3 79-99 fL Mean Corpuscular Hemoglobin 27.5 27.0-33.0 pg Mean Corpuscular Hemoglobin Concent 30.8 L 32.0-36.0 g/dL Red Cell Distribution Width 15.6 H 11.0-15.5 % Platelet Count 181 130-400 K/uL Mean Platelet Volume 9.6 7.5-10.5 fL Immature Granulocyte % (Auto) 0.7 0-1 % Neutrophils (%) (Auto) 57.8 40.0-77.0 % Lymphocytes (%) (Auto) 26.0 21.0-51.0 % Monocytes (%) (Auto) 12.9 3.0-13.0 % Eosinophils (%) (Auto) 1.9 0.0-8.0 % Basophils (%) (Auto) 0.7 0.0-5.0 % Neutrophils # (Auto) 5.2 1.8-7.7 K/uL Lymphocytes # (Auto) 2.4 1.0-4.8 K/uL Monocytes # (Auto) 1.2 H 0.1-1.0 K/uL Eosinophils # (Auto) 0.17 0.00-0.70 K/uL Basophils # (Auto) 0.06 0.00-0.20 K/uL Absolute Immature Granulocyte (auto 0.06 0-1 K/uL Nucleated Red Blood Cells 0.0 0.0-0.19 % Red Blood Cell Morphology See comments Chemistry Labs: Test 01/04/25 04:29 01/03/25 21:19 01/03/25 05:47 01/03/25 02:04 Range/Units Sodium Level 140 136-145 mmol/L Potassium Level 3.4 L 3.5-5.1 mmol/L Chloride Level 98 L 101-111 mmol/L Carbon Dioxide Level 35 H 21-32 mmol/L Blood Urea Nitrogen 16 7-18 mg/dL Creatinine 1.2 H 0.5-1.0 mg/dL Glomerular Filtration Rate Calc 51 >90 mL/min Random Glucose 124 H 70-105 mg/dL Total Calcium 8.3 L 8.5-10.1 mg/dL Total Bilirubin 0.4 0.2-1.0 mg/dL Aspartate Amino Transf (AST/SGOT) 19 10-37 U/L Alanine Aminotransferase (ALT/SGPT) 24 12-78 U/L Alkaline Phosphatase 83 50-136 U/L Total Protein 5.6 L 6.0-8.3 g/dL Albumin 2.3 L 3.5-5.0 g/dL Whole Blood Glucose 123 H 70-110 MG/DL Lactic Acid Level 2.3 0.8-2.5 mmol/L Magnesium Level 2.30 1.80-2.40 mg/dL Thyroid Stimulating Hormone (TSH) 1.22 # 0.36-3.74 uIU/mL Test 01/02/25 13:25 01/02/25 10:07 Range/Units Troponin I High Sensitivity 1267 *H 4-50 ng/L Hemoglobin A1c 7.3 H 4.0-6.0 % Estimated Average Glucose (eAG) 163 H 70-126 mg/dL Total Creatine Kinase 98 21-232 U/L C-Reactive Protein, Quantitative 7.40 H 0.5-3.0 mg/L B-Type Natriuretic Peptide 29 0-100 pg/mL Procalcitonin < 0.05 L 0.05-0.5 ng/mL Coagulation Labs: Test 01/03/25 17:11 10/10/25 10:07 Range/Units Activated Partial Thromboplast Time 90.5 #*H 26.3-35.5 SEC Prothrombin Time 10.9 9.6-11.6 SEC Prothromb Time International Ratio 1.03 0.85-1.15 DIAGNOSTICS / RADIOLOGY RESULTS: [ ] PLAN continue eliquis per cardiology recs monitor for bleeding Pt is on % L will try weaning o2 as tolerated Pt to use inpatient cpap machine at hs possible downgrade in am Multimodal pain management Maintain O2 sats above 92% lasix 20mg iv q8hrs for now strict stacie Supplement oxygen as needed Coags Monitor electrolytes and replace per protocol Potassium goal of 4 Magnesium goal of 2 NEURO: Minimize central acting medications as possible. Fall Precautions. Well lighted room through the day and minimize interruptions through the night to prevent acute delirium. PULMONARY: Supplemental 02 as needed Titrate Fio2 to keep Spo2 > or = 92% DuoNebs and CPT as needed IS hourly while awake for pulmonary hygiene Out of bed to chair as tolerated CARDIOVASCULAR: Follow hemodynamics. Titrate vasopressor to keep MAP >65 or systolic blood pressure >95mmHg DRIPS: Heparin drip LINES: PIV GI & NUTRITION: Continue nutritional support Aspirations precautions Prokinetic agents and laxatives as needed NPO for now for possible procedure KIDNEYS & ELECTROLYTES: Strict monitoring of intake and output Daily weights Avoid nephrotoxic agents Monitor electrolytes and replace as needed Goal urine output of 30mL/hr or 0.5mL/kg/hr ENDOCRINE: Maintain blood glucose between 100-180 at all times. Insulin sliding scale for blood glucose management TSH and a.m. A1c name INFECTIOUS DISEASE: Trend temperature. Dumont-culture if febrile. Micro: [ ] Negative for flu a and B, Negative for COVID Negative for strep Antibiotics: Per primary team Rocephin HEMATOLOGY & COAGULATION: Monitor H&H. Keep Hgb > 7 Transfuse 1 unit of PRBC for Hgb < 7 Transfuse 1 pack of platelets of platelets < 20, 000 Watch for any signs and symptoms of bleeding SKIN: Pressure ulcer prevention per facility protocol Rehab: PT/OT Prophylaxis: GI: protonix DVT: Heparin drip per protocol Code Status: Full Resuscitation Disposition: ICU Other: Critical care time This patient required multiple bedside visits to manage the patient, review blood gases, coordinate with respiratory, nurses, review radiology exams, talk to the family members and discuss advanced directives. I personally spent [35] minutes of critical care time in treatment of this patient. This includes patient management, time at bedside, time reviewing tests, labs, appropriate images and studies, documentation, and patient care coordination. This time excludes separately billable procedures. ATTESTATION BY PHYSICIAN The patient has been seen and evaluated, the case has been discussed with the TERRESTRIAL ECOLOGIST, I agree with the clinical findings and plan of care. Ryland Borden MD, [facility] Jan 04, 2025 10:02
--- NOTE | 2025-01-04 10:34 | PN ---
[facility] PROGRESS NOTE Date of Service: Jan 04, 2025 Time of Service: 10:31 SUBJECTIVE: Patient underwent pulmonary thrombectomy. Complications reported. Patient is resting comfortably in bedside chair. She reports postprocedure she is feeling better. Patient has been transitioned to [facility] REVIEW OF SYSTEMS CONSTITUTIONAL: Denies fevers, chills, or night sweats. No unintentional weight loss reported. NEUROLOGICAL: Denies headache, amaurosis fugax, motor weakness, sensory deficit, vertigo/spinning sensation, gait abnormalities, or tremors. ENT: No hearing loss, otalgia, otorrhea, rhinitis, rhinorrhea, hoarseness, or sore throat. CARDIOVASCULAR: For chest pain, shortness of breath at rest. PULMONARY: Positive for shortness of breaths. Denied any cough, hemoptysis GASTROINTESTINAL: Denies any type of dysphagia to either liquids or solids. Denies nausea, vomiting, pyrosis, early satiety, abdominal pain, diarrhea, constipation, or changes in stool consistency or caliber. Denies coffee-ground emesis, hematemesis, hematochezia, or melanotic stools. GENITOURINARY: Denies frequency, urgency, nocturia, hematuria or incontinence (Storage/Irritative symptoms.) Low urinary stream, straining to void, urinary intermittency or hesitancy, splitting of the voiding stream, terminal dribbling. ENDOCRINOLOGIC: Denies polyuria, polydipsia, polyphagia or heat/cold intolerances. HEMATOLOGIC: Denies thrombophilia/previous clots, or coagulopathy/bleeding disorders. ONCOLOGIC: Denies personal history of malignancy. DERMATOLOGIC: Denies rashes or pruritus. PSYCHIATRIC: Denies any suicidal or homicidal ideation. Denies hallucinations. PHYSICAL EXAM GENERAL APPEARANCE: The patient is awake, alert, and oriented, in no acute cardiopulmonary distress. Patient is unable to lie flat. She prefers to be in a seated position NEUROLOGICAL: Cranial nerves II-XII grossly intact. Motor is 5/5 in bilateral upper and lower extremities proximal to distal. No sensory deficits. HEENT: Face is symmetric. Pupils are equal and reactive. Extraocular movements are intact. NECK: Supple. No JVD. No thyromegaly. No submental, submandibular, pre- /postauricular, occipital or supraclavicular lymphadenopathy. CHEST: Normal chest expansion. No Telemetry. LUNGS: Absence of any rales, rhonchi or any wheezing. CARDIOVASCULAR: Regular. S1 and S2 normal. No appreciable rubs, murmurs or gallops. ABDOMEN: Soft, nontender, and nondistended. There is no rebound, voluntary guarding, or rigidity. : Deferred. No Schuler. EXTREMITIES: Erythema in the lower extremity bilaterally with pitting edema. She has a wound noted in the left lower extremity. Currently has a dressing present. SKIN: No skin breakdown. Vital Signs (last 8hr) Date Time Temp Pulse Resp B/P (MAP) Pulse Ox O2 Delivery O2 Flow Rate FiO2 01/04/25 07:00 59 22 113/63 92 CPAP 6.0 01/04/25 06:00 86 41 101/59 97 CPAP 6.0 01/04/25 05:00 86 23 104/45 97 CPAP 6.0 01/04/25 04:00 99.0 87 23 92 CPAP 6.0 01/04/25 04:00 97 CPAP+ 8 55 01/04/25 03:00 86 22 95/75 94 CPAP 6.0 LABS: Laboratory: Test 01/04/25 04:29 01/03/25 21:19 01/03/25 17:35 01/03/25 17:11 Range/Units White Blood Count 9.1 4.8-10.8 K/uL Red Blood Count 3.82 L 4.00-5.50 MIL/uL Hemoglobin 10.5 L 12.0-16.0 g/dL Hematocrit 34.1 L 36-48 % Mean Corpuscular Volume 89.3 79-99 fL Mean Corpuscular Hemoglobin 27.5 27.0-33.0 pg Mean Corpuscular Hemoglobin Concent 30.8 L 32.0-36.0 g/dL Red Cell Distribution Width 15.6 H 11.0-15.5 % Platelet Count 181 130-400 K/uL Mean Platelet Volume 9.6 7.5-10.5 fL Immature Granulocyte % (Auto) 0.7 0-1 % Neutrophils (%) (Auto) 57.8 40.0-77.0 % Lymphocytes (%) (Auto) 26.0 21.0-51.0 % Monocytes (%) (Auto) 12.9 3.0-13.0 % Eosinophils (%) (Auto) 1.9 0.0-8.0 % Basophils (%) (Auto) 0.7 0.0-5.0 % Neutrophils # (Auto) 5.2 1.8-7.7 K/uL Lymphocytes # (Auto) 2.4 1.0-4.8 K/uL Monocytes # (Auto) 1.2 H 0.1-1.0 K/uL Eosinophils # (Auto) 0.17 0.00-0.70 K/uL Basophils # (Auto) 0.06 0.00-0.20 K/uL Absolute Immature Granulocyte (auto 0.06 0-1 K/uL Nucleated Red Blood Cells 0.0 0.0-0.19 % Sodium Level 140 136-145 mmol/L Potassium Level 3.4 L 3.5-5.1 mmol/L Chloride Level 98 L 101-111 mmol/L Carbon Dioxide Level 35 H 21-32 mmol/L Blood Urea Nitrogen 16 7-18 mg/dL Creatinine 1.2 H 0.5-1.0 mg/dL Glomerular Filtration Rate Calc 51 >90 mL/min Random Glucose 124 H 70-105 mg/dL Total Calcium 8.3 L 8.5-10.1 mg/dL Total Bilirubin 0.4 0.2-1.0 mg/dL Aspartate Amino Transf (AST/SGOT) 19 10-37 U/L Alanine Aminotransferase (ALT/SGPT) 24 12-78 U/L Alkaline Phosphatase 83 50-136 U/L Total Protein 5.6 L 6.0-8.3 g/dL Albumin 2.3 L 3.5-5.0 g/dL Whole Blood Glucose 123 H 70-110 MG/DL Urine Color YELLOW YELLOW Urine Appearance CLEAR CLEAR Urine pH 5.5 5.0-8.0 Urine Specific [place] OVER 1.001-1.031 Urine Protein TRACE H NEGATIVE mg/dL Urine Glucose (UA) >=1000 H NEGATIVE mg/dL Urine Ketones NEGATIVE NEGATIVE mg/dL Urine Occult Blood NEGATIVE NEGATIVE Urine Nitrate NEGATIVE NEGATIVE Urine Bilirubin NEGATIVE NEGATIVE mg/dL Urine Urobilinogen 0.2 0.2-1.0 mg/dL Urine Leukocyte Esterase NEGATIVE NEGATIVE Christina/uL Urine RBC 2-5 H 0-1 /HPF Urine WBC 0-1 0-1 /HPF Urine Squamous Epithelial Cells MOD 0-2 /HPF Urine Bacteria FEW None Seen /HPF Activated Partial Thromboplast Time 90.5 #*H 26.3-35.5 SEC Test 01/03/25 05:47 01/03/25 02:04 01/02/25 13:25 01/02/25 12:05 Range/Units Lactic Acid Level 2.3 0.8-2.5 mmol/L Magnesium Level 2.30 1.80-2.40 mg/dL Thyroid Stimulating Hormone (TSH) 1.22 # 0.36-3.74 uIU/mL Troponin I High Sensitivity 1267 *H 4-50 ng/L Blood Gas Specimen Type Arterial Arterial Blood pH 7.485 H 7.350-7.450 Arterial Blood Partial Pressure CO2 44 32-45 mmHg Arterial Blood Partial Pressure O2 61.5 L 83.0-108.0 mmHg Arterial Blood HCO3 32.7 H 21.0-28.0 mmol/L Arterial Blood Oxygen Saturation 93.1 L 94.0-98.0 % Arterial Blood Base Excess 8.2 H -2.0-3.0 mmol/L Blood Gas Temperature 37.0 35.5-37.0 CELSIUS Blood Gas Flow-by 2.00 0.00-15.00 L/min Blood Gas Vent Mode 2 L NC ROOM AIR FiO2 28.0 % Blood Gas Specimen Comment RR MAAME. RN Test 01/02/25 10:37 Range/Units Influenza Type A Antigen Negative For Type A NEGATIVE Influenza Type B Antigen Negative For Type B NEGATIVE SARS-CoV-2, RNA, NAAT NEGATIVE SARS CoV-2 NEGATIVE Group A Streptococcus Rapid negative NEGATIVE Current Medications Medications (Trade) Dose Ordered Sig/Ashanti Route PRN Reason Start Time Stop Time Status Last Admin Dose Admin Acetaminophen (TYLenol 500MG TAB) 500 mg Q6H PRN PO MILD PAIN (1-3) 01/02/25 14:30 02/01/25 14:29 Acetaminophen/ Codeine Phosphate (TYLenol-coDEINE TAB) 1 tab Q6H PRN PO MODERATE PAIN (4-6) 01/03/25 07:00 01/03/25 23:15 DC Apixaban (EliquIS) 5 mg BID PO 01/11/25 09:00 02/10/25 08:59 Apixaban (EliquIS) 10 mg BID PO 01/03/25 21:00 01/10/25 23:00 01/03/25 20:29 10 MG Atorvastatin Calcium (LIPItor 10MG) 10 mg DAILY PO 01/03/25 09:00 02/02/25 08:59 01/03/25 09:13 10 MG Baclofen (Baclofen) 5 mg TIDP PRN PO Back Pain 01/03/25 07:00 02/02/25 06:59 01/03/25 20:29 5 MG Ceftriaxone Sodium (ROCEphine 1G INJ) 1 gm Q24H IVPB 01/02/25 15:00 01/02/25 15:19 DC Ceftriaxone Sodium (Rocephin 2gm Inj) 2 gm Q24H IVPB 01/03/25 16:00 01/13/25 15:59 01/03/25 16:41 2 GM Dextrose (D50w) 50 ml AD PRN IV HYPOGLYCEMIA PROTOCOL 01/02/25 19:30 02/01/25 19:29 Famotidine (Pepcid 20mg Vial) 20 mg Q24H IV 01/02/25 21:00 01/04/25 10:03 DC 01/03/25 20:29 20 MG Glucagon (Glucagon 1mg Kit) 1 mg AD PRN IM HYPOGLYCEMIA PROTOCOL 01/02/25 19:30 02/01/25 19:29 Heparin Sodium (Porcine) (HEParin 5,000 UNIT VIAL) *calculation based on ACTUAL B... AD PRN IV HEPARIN PROTOCOL 01/02/25 15:00 01/03/25 21:00 DC Heparin Sodium/ Dextrose 250 ml @ 0 mls/hr Q6H IV 01/02/25 15:00 01/03/25 21:00 DC 01/03/25 09:29 0 MLS/HR Hydromorphone HCl (DiLAUDid 0.5MG INJ) 0.2 mg Q4H PRN IVP SEVERE PAIN (7-10) 01/03/25 23:30 01/08/25 23:29 01/04/25 06:47 0.2 MG Insulin Human Regular (humuLIN R 100 UNIT/ML 3ML) INSULIN SLIDING SCAL... ACHS SQ 01/02/25 21:00 02/01/25 20:59 Magnesium Sulfate 50 ml @ 0 mls/hr PROTOCOL PRN IV hypomagnesemia 01/02/25 14:30 02/01/25 14:29 Metoprolol Tartrate (loprESSOR) 25 mg BID PO 01/03/25 14:00 01/04/25 07:17 DC 01/03/25 20:29 25 MG Pantoprazole Sodium (PROTonix 40MG INJ) 40 mg BID IVP 01/04/25 21:00 02/03/25 20:59 Pantoprazole Sodium (PROTonix 40MG TAB) 40 mg DAILY PO 01/03/25 09:00 01/04/25 10:02 DC 01/03/25 09:14 40 MG Potassium Chloride 100 ml @ 100 mls/hr AD PRN IV POTASSIUM PROTOCOL 01/02/25 14:30 02/01/25 14:29 Potassium Chloride (K-Dur/Klor-Con 20meq) 20 meq AD PRN PO POTASSIUM PROTOCOL 01/02/25 14:30 02/01/25 14:29 Potassium Chloride (KCl 10% Elixir 20meq/15ml) 20 meq AD PRN PO POTASSIUM PROTOCOL 01/02/25 14:30 02/01/25 14:29 Pramipexole Dihydrochloride (miraPEX 0.25MG TAB) 0.5 mg HS PO 01/03/25 21:00 02/02/25 20:59 01/03/25 20:29 0.5 MG Sodium Chloride 1,000 ml @ 150 mls/hr Q6H40M IV 01/02/25 19:30 01/02/25 23:29 DC 01/02/25 19:48 150 MLS/HR Terbinafine HCl (Lamisil) 250 mg DAILY PO 01/03/25 09:00 02/02/25 08:59 01/03/25 09:13 250 MG Tramadol HCl (UltRAM) 50 mg Q6H PRN PO MODERATE PAIN (4-6) 01/03/25 23:30 01/08/25 23:29 01/04/25 06:46 50 MG DIAGNOSTICS / RADIOLOGY: [ ] ASSESSMENT: Bilateral PE POA Acute on chronic hypoxic respiratory failure secondary to PE Troponin elevation likely in setting of PE Lower back pain MRI showing chronic compression fracture of T12 vertebrae 12/16/2024 Bilateral lower extremity edema with chronic wound History of venous stasis History of Pulmonary hypertension History of CardioMEMS device loose Obesity Obstructive sleep apnea Hypertension Hyperlipidemia CKD stage 3 Right ankle calcaneal spur, POA PLAN: Continue Zosyn Trend WBCs Follow-up cultures Continue pramipexole O2 nasal cannula as needed Follow up With Pulmonary/critical Care Medicine -continue Eliquis Continue atorvastatin Monitor blood pressure Follow up with Cardiology Heart healthy diet GI prophylaxis with pantoprazole No need for IV fluids Trend a.m. BMP Replete electrolytes as necessary DVT prophylaxis with heparin Trend a.m. CBC Full code Case was discussed with patient's nurse at bedside Attention time greater than 30 minutes RALPH WHITTAKER IV, MD Jan 04, 2025 10:34
--- NOTE | 2025-01-04 17:00 | HMCIMG ---
EXAM: CR right ankle, 2 View. CLINICAL HISTORY: PAIN COMPARISON: None provided. FINDINGS: BONES: No fracture visualized JOINTS: The joint spaces appear within normal limits. No dislocation. No radiographic evidence of a joint effusion. SOFT TISSUES: Soft tissue swelling MISCELLANEOUS: Calcaneal spur IMPRESSION: 1. Soft tissue swelling 2. No fracture visualized 3. Calcaneal spur /Shipman
--- NOTE | 2025-01-04 17:00 | HMCIMG ---
EXAM: CR right Rib, 2 View. CLINICAL HISTORY: PAIN COMPARISON: None provided. FINDINGS: LUNGS: The visualized lungs appear essentially clear. PLEURAL SPACES: No evidence of pneumothorax. No pleural effusion. BONES: No visible acute rib fracture. IMPRESSION: No visible acute rib fracture. No pneumothorax. /[place]orton
--- NOTE | 2025-01-04 18:41 | NUR ---
DCP: INITIAL ASSESSMENT Patient lives with spouse, Lj Hidalgo. She has [facility] daily for wound care to both legs. She also has [facility] services with [facility] 1/2 hours a week. Patient has free style meter, rollator, wheel chair, BSC, nebulizer, CPAP, and home O2. O2 provided by [facility]. PCP is Dr. Wang Bautista. Pharmacy is [facility] located on [address] in [place]. Patient voiced no safety concerns regarding returning home and states she has no difficulty with housing or buying food. DCP is home with current home health. Addendum: 01/04/25 at 1844 by HANY SKELTON Amended: Links added.
[2025-01-04] MEDS: PoTASSium chloRIDE 20MEQ ER 20 MEQ ERTAB PO PRN (20:06)
[2025-01-05] VITALS (19 sets, daily range): BP systolic 96–130; BP diastolic 58–80; PULSE 82–112; RESP 18–29; TEMP 97.9–99.8; O2SAT 92–99
[2025-01-05 04:17] LABS: ABG BASE EXCESS 6.9 mmol/L (-2.0-3.0); ABG HCO3 33.5 mmol/L (21.0-28.0); ABG OXYGEN SATURATION 95.8 % (94.0-98.0); ABG PCO2 58 mmHg (32-45); ABG PH 7.380 (7.350-7.450); CARBON MONOXIDE 0.9 % (0.5-1.5); DEVICE COMMENT RB RN YVONNE; PO2, ARTERIAL BG 83.6 mmHg (83.0-108.0); TEMPERATURE, CELSIUS BG 37.0 CELSIUS (35.5-37.0); VENT MODE, BG HOME CPAP (ROOM AIR)
[2025-01-05 04:19] LABS: IMMATURE GRANULOCYTE ABSOLUTE 0.04 K/uL (0-1); NUCLEATED RED BLOOD CELLS 0.0 % (0.0-0.19); PLATELET COUNT (AUTO) 187 K/uL (130-400); RED BLOOD CELL COUNT(AUTO) 3.77 MIL/uL (4.00-5.50); RED CELL DISTRIBUTION WIDTH 15.6 % (11.0-15.5); WHITE BLOOD COUNT (AUTO) 8.4 K/uL (4.8-10.8)
[2025-01-05 04:33] LABS: ASPARTATE AMINOTRANSFERASE 15.0 U/L (10-37); CREATININE 1.0 mg/dL (0.5-1.0); GLOMERULAR FILTR. RATE CALC 63.0 mL/min (>90); GLUCOSE,RANDOM 109.0 mg/dL (70-105); SODIUM SERUM 139.0 mmol/L (136-145); TOTAL PROTEIN, SERUM 5.7 g/dL (6.0-8.3); UREA NITROGEN, BLOOD 14.0 mg/dL (7-18)
[2025-01-05] MEDS: BACLOFEN 10 MG TABLET PO PRN (08:50)
--- NOTE | 2025-01-05 09:02 | PN ---
[facility] PROGRESS NOTE Date Patient Seen: Jan 05, 2025 Time of Visit: 09:02 Supervising Physician: RYLAND BORDEN MD Primary Care Physician: VINCE HASSAN MD Outpatient Specialists: [ ] Inpatient Consults: BIS PROBLEM LIST: Acute on chronic hypoxic respiratory failure POA Bilateral PE S/P Successful Bilateral Pulmonary Embolectomy 01/03/25 NSTEMI POA Left SFV + DVT Lower back pain MRI showing chronic compression fracture of T12 vertebrae 0 12/16/2024 Bilateral lower extremity edema with chronic wound History of venous stasis History of Pulmonary hypertension History of CardioMEMS Obesity Obstructive sleep apnea Hypertension Hyperlipidemia CKD stage 3 INTERVAL HISTORY: No major overnight events. She is on 5 L via NC saturating 96%. She reports dyspnea with minimal exertions. She reports good urine output although weigh gain since admission approximately 2 Kg. She will resume her lasix from home. Continue to appreciate cardiology recommendations. I have asked RT to try inpatient Cpap during the night with face-mask if pt tolerates. REVIEW OF SYSTEMS: Const: + fatigue,+ mild anxiety Eyes: no recent vision problems ENT: No congestion, ear pain, or sore throat C/V: + chest pain, palpitations, + bilateral pitting edema to lower extremities Resp: + shortness for breath, dyspnea on minimal exertion GI: No abdominal pain, nausea, vomiting, constipation, or diarrhea : No incontinence of or dyuria M/S: + bilateral lower extremity swelling+ back pain Skin: + chronic venous stasis ulcers to bilateral lower extremities Neuro: -numbness weakness and dizziness Psych: no depression or anxiety Heme: no abnormal bruising or bleeding Endocrinology: + thyroid mass Lymph: [no swollen glands PHYSICAL EXAM: GENERAL: alert, weak, awake oriented x 3, fatigue HEENT: EOMI, Sclera non icteric, moist mucosa NECK: History of thyroid mass, no JVD, trachea midline LUNGS: Diminished breath sounds bilaterally. No wheezes HEART: Regular rate and rhythm. Normal S1 and S2, without murmurs ABD: Abdomen soft, nontender. Bowel sounds present EXT: No clubbing cyanosis or edema NEURO: Alert and oriented to person, follows commands Vital Signs (last 8hr) Date Time Temp Pulse Resp B/P (MAP) Pulse Ox O2 Delivery O2 Flow Rate FiO2 01/05/25 06:47 102 20 01/05/25 06:00 103 29 104/63 97 CPAP 6.0 01/05/25 05:00 99 23 96/73 96 CPAP 6.0 01/05/25 04:00 98.2 98 24 127/80 97 CPAP 6.0 01/05/25 03:00 96 21 110/70 94 CPAP 6.0 01/05/25 02:00 94 18 118/72 87 CPAP 6.0 LABS: Hematology Labs: Test 01/05/25 03:53 Range/Units White Blood Count 8.4 4.8-10.8 K/uL Red Blood Count 3.77 L 4.00-5.50 MIL/uL Hemoglobin 10.4 L 12.0-16.0 g/dL Hematocrit 34.0 L 36-48 % Mean Corpuscular Volume 90.2 79-99 fL Mean Corpuscular Hemoglobin 27.6 27.0-33.0 pg Mean Corpuscular Hemoglobin Concent 30.6 L 32.0-36.0 g/dL Red Cell Distribution Width 15.6 H 11.0-15.5 % Platelet Count 187 130-400 K/uL Mean Platelet Volume 10.0 7.5-10.5 fL Immature Granulocyte % (Auto) 0.5 0-1 % Neutrophils (%) (Auto) 59.8 40.0-77.0 % Lymphocytes (%) (Auto) 24.2 21.0-51.0 % Monocytes (%) (Auto) 13.8 H 3.0-13.0 % Eosinophils (%) (Auto) 1.3 0.0-8.0 % Basophils (%) (Auto) 0.4 0.0-5.0 % Neutrophils # (Auto) 5.0 1.8-7.7 K/uL Lymphocytes # (Auto) 2.0 1.0-4.8 K/uL Monocytes # (Auto) 1.2 H 0.1-1.0 K/uL Eosinophils # (Auto) 0.11 0.00-0.70 K/uL Basophils # (Auto) 0.03 0.00-0.20 K/uL Absolute Immature Granulocyte (auto 0.04 0-1 K/uL Nucleated Red Blood Cells 0.0 0.0-0.19 % Chemistry Labs: Test 01/05/25 03:53 01/04/25 20:51 Range/Units Sodium Level 139 136-145 mmol/L Potassium Level 3.6 3.5-5.1 mmol/L Chloride Level 98 L 101-111 mmol/L Carbon Dioxide Level 36 H 21-32 mmol/L Blood Urea Nitrogen 14 7-18 mg/dL Creatinine 1.0 0.5-1.0 mg/dL Glomerular Filtration Rate Calc 63 >90 mL/min Random Glucose 109 H 70-105 mg/dL Total Calcium 8.4 L 8.5-10.1 mg/dL Magnesium Level 1.90 1.80-2.40 mg/dL Total Bilirubin 0.5 # 0.2-1.0 mg/dL Aspartate Amino Transf (AST/SGOT) 15 10-37 U/L Alanine Aminotransferase (ALT/SGPT) 18 # 12-78 U/L Alkaline Phosphatase 80 50-136 U/L B-Type Natriuretic Peptide 216 H 0-100 pg/mL Total Protein 5.7 L 6.0-8.3 g/dL Albumin 2.2 L 3.5-5.0 g/dL Whole Blood Glucose 140 H 70-110 MG/DL Coagulation Labs: Test 01/03/25 17:11 Range/Units Activated Partial Thromboplast Time 90.5 #*H 26.3-35.5 SEC DIAGNOSTICS / RADIOLOGY RESULTS: [ [address] [address] IMAGING REPORT Signed PATIENT: STEW LAKE MR#: [id number] : 1960 SEX: F AGE: 64 LOCATION: [facility] ORDER 2300 STATUS: ADM IN REPORT#: [id number] SERVICE 0600 REASON: hypoxic resp failure ORDERING PHYSICIAN: VALENTIN POLLOCK PROCEDURE: CXR1VW - CHEST 1VW Comparison: January 03 2025 Findings: The heart is enlarged in size and the lungs are clear. There are no pleural effusions. There is no acute fracture. There is no pneumothorax. IMPRESSION: Cardiomegaly. /[place] DICTATED BY: OSCAR GUAMAN MD DATE: 01/05/25 1520 ELECTRONICALLY SIGNED BY: OSCAR GUAMAN MD DATE: 01/05/25 1520 ] PLAN she will require refitting of mask as outpatient for her CPAP - She may follow up with her pulmonology of choice on Discharge. continue eliquis per cardiology recs monitor for bleeding Pt is on 5 L will try weaning o2 as tolerated Pt to use inpatient cpap machine at [facility] pain management Maintain O2 sats above 92% lasix 20mg iv q8hrs for now strict stacie Supplement oxygen as needed Monitor electrolytes and replace per protocol Potassium goal of 4 Magnesium goal of 2 NEURO: Minimize central acting medications as possible. Maintain fall precautions, adequate lighting during the day PULMONARY: Supplemental 02 as needed. Maintain aspiration precautions at all times CARDIOVASCULAR: Follow hemodynamics. Vital signs per facility protocol GI & NUTRITION: Continue with nutritional support. Continue stool softeners and laxatives as needed. KIDNEYS & ELECTROLYTES: Strict monitoring of intake, output and overall fluid balance. Avoid nephrotoxic medications to the extent possible. Medications to be dosed according to renal function. Monitor electrolytes and replace as needed ENDOCRINE: Maintain blood glucose between 100-180 at all times. Hypoglycemia protocol in place INFECTIOUS DISEASE: Trend temperature, WBC and procalcitonin level Follow cultures, deescalate antibiotics as soon as possible. Panculture if new onset fever ONCOLOGY/HEMATOLOGY/COAGULATION: Monitor for s/s of bleeding Monitor hemoglobin, coagulation studies as needed SKIN: Pressure ulcer prevention per facility protocol Specialty mattress ORTHO/REHAB: Continue PT/OT Prophylaxis: Continue GI and DVT prophylaxis Code Status: Full Resuscitation Disposition: TBD Other: Total patient care time exceeds 35 minutes excluding all procedures. ATTESTATION BY PHYSICIAN The patient has been seen and evaluated, the case has been discussed with the SWATCH CHECKER, I agree with the clinical findings and plan of care. Ryland Borden MD, NELLY J AGACNP Jan 05, 2025 09:02
--- NOTE | 2025-01-05 09:03 | PN ---
[facility] CARDIOLOG[facility] PROGRESS NOTE Date Patient Seen: Jan 05, 2025 Time of Visit: 08:57 Interval History: [No acute events overnight , review of telemetry shows sinus tachycardia in the low 100s , denies any cardiac symptoms or anginal equivalents. ] Physical Examination: GENERAL: [No acute distress.] HEAD: [Normal with no signs of head trauma.] EYES: [PERRLA, EOMI, conjunctiva and sclera normal.] ENT: [Hearing grossly intact, normal oropharynx.] NECK: [Supple without JVD. There is no tenderness, lymphadenopathy, or masses. No thyromegaly. Normal carotid upstrokes without bruits.] LUNGS: [Clear breath sounds bilaterally. No wheezes, or rhonchi.] HEART: [Normal rate and rhythm. Normal S1 and S2 without mumurs, gallop or rub.] VASC: [Peripheral pulses +2 bilaterally.] ABD: [Bowel sounds normal, soft, nontender, no masses, no organomegaly. No audible bruits.] : [Not examined] LYMPH: [No lymphadenopathy noted.] EXT: [1+ bilateral LE pitting edema ] SKIN: [No rashes or lesions noted.] NEURO: [Awake, alert, and oriented x3. No focal sensory or strength deficits noted.] Laboratory: [ ] Hematology Labs: Test 01/05/25 03:53 Range/Units White Blood Count 8.4 4.8-10.8 K/uL Red Blood Count 3.77 L 4.00-5.50 MIL/uL Hemoglobin 10.4 L 12.0-16.0 g/dL Hematocrit 34.0 L 36-48 % Mean Corpuscular Volume 90.2 79-99 fL Mean Corpuscular Hemoglobin 27.6 27.0-33.0 pg Mean Corpuscular Hemoglobin Concent 30.6 L 32.0-36.0 g/dL Red Cell Distribution Width 15.6 H 11.0-15.5 % Platelet Count 187 130-400 K/uL Mean Platelet Volume 10.0 7.5-10.5 fL Immature Granulocyte % (Auto) 0.5 0-1 % Neutrophils (%) (Auto) 59.8 40.0-77.0 % Lymphocytes (%) (Auto) 24.2 21.0-51.0 % Monocytes (%) (Auto) 13.8 H 3.0-13.0 % Eosinophils (%) (Auto) 1.3 0.0-8.0 % Basophils (%) (Auto) 0.4 0.0-5.0 % Neutrophils # (Auto) 5.0 1.8-7.7 K/uL Lymphocytes # (Auto) 2.0 1.0-4.8 K/uL Monocytes # (Auto) 1.2 H 0.1-1.0 K/uL Eosinophils # (Auto) 0.11 0.00-0.70 K/uL Basophils # (Auto) 0.03 0.00-0.20 K/uL Absolute Immature Granulocyte (auto 0.04 0-1 K/uL Nucleated Red Blood Cells 0.0 0.0-0.19 % Chemistry Labs: Test 01/05/25 03:53 01/04/25 20:51 Range/Units Sodium Level 139 136-145 mmol/L Potassium Level 3.6 3.5-5.1 mmol/L Chloride Level 98 L 101-111 mmol/L Carbon Dioxide Level 36 H 21-32 mmol/L Blood Urea Nitrogen 14 7-18 mg/dL Creatinine 1.0 0.5-1.0 mg/dL Glomerular Filtration Rate Calc 63 >90 mL/min Random Glucose 109 H 70-105 mg/dL Total Calcium 8.4 L 8.5-10.1 mg/dL Magnesium Level 1.90 1.80-2.40 mg/dL Total Bilirubin 0.5 # 0.2-1.0 mg/dL Aspartate Amino Transf (AST/SGOT) 15 10-37 U/L Alanine Aminotransferase (ALT/SGPT) 18 # 12-78 U/L Alkaline Phosphatase 80 50-136 U/L B-Type Natriuretic Peptide 216 H 0-100 pg/mL Total Protein 5.7 L 6.0-8.3 g/dL Albumin 2.2 L 3.5-5.0 g/dL Whole Blood Glucose 140 H 70-110 MG/DL Coagulation Labs: Test 01/03/25 17:11 Range/Units Activated Partial Thromboplast Time 90.5 #*H 26.3-35.5 SEC Diagnostics / Radiology: [Copy/Paste Echos/Imaging Report here] Impression and Plan: [-Acute hypoxemic respiratory failure, currently on NC -Bilateral pulmonary emboli with evidence of RH strain identified on CTA done on 01/02/2025 -LLE DVT identified on venous Doppler done on 01/02/2025 -Elevated troponin (type II DE) -Sinus tachycardia -Electrolyte derangement -Chronic venous insufficiency with venous stasis ulcers -HTN -HLP -DM2 -RA -COPD, on intermittent oxygen therapy -PH -HFpEF (LVEF: 60-65% by echo done 12/10/2024) s/p CardioMEMS insertion -Chronic back pain with compression fractures involving T12, L1, and L2 -Morbid obesity Plan: 1. Bilateral pulmonary emboli with evidence of RH strain identified on CTA done on 01/02/2025 -Cardiac enzymes-HS troponin I: 235>510>1267 -2D echocardiogram done on 01/02/2025 (preliminary) identified evidence of right heart strain. - She is status post PE thrombectomy 01/02/2025.With removal of significant clot burden -Continue with Eliquis 10 mg every 12 hrs x 7 day and the follow with Eliquis 5 mg every 12 hrs after that -We will recommend a 6 minute walk today to assess O2 requirement-Continue PT- OT -Order Chest X ray for today Thank you for this consult , cardiology will continue to follow along Manpreet Mac MD ] ATTESTATION BY PHYSICIAN I have seen and examined the patient, reviewed the above documentation, participated in medical decision making, made necessary modifications, and agree with the treatment plan as documented by my mid-level provider above. MD DORETHA Alfredo JAMES R MD Jan 05, 2025 09:03
--- NOTE | 2025-01-05 11:11 | PN ---
[facility] PROGRESS NOTE Date of Service: Jan 05, 2025 Time of Service: 11:08 SUBJECTIVE: 01/04 Patient underwent pulmonary thrombectomy. Complications reported. Patient is resting comfortably in bedside chair. She reports postprocedure she is feeling better. Patient has been transitioned to [facility] 01/05 patient is resting comfortably in bed. Yesterday the patient has complained of right sided rib pain and and right ankle pain. X-ray of the right ribs was negative for fracture and no pneumothorax. X-ray of the right ankle demonstrated calcaneal spur with inflammation of the surrounding tissue. Patient is undergoing home O2 evaluation, physical therapy evaluation REVIEW OF SYSTEMS CONSTITUTIONAL: Denies fevers, chills, or night sweats. No unintentional weight loss reported. NEUROLOGICAL: Denies headache, amaurosis fugax, motor weakness, sensory deficit, vertigo/spinning sensation, gait abnormalities, or tremors. ENT: No hearing loss, otalgia, otorrhea, rhinitis, rhinorrhea, hoarseness, or sore throat. CARDIOVASCULAR: For chest pain, shortness of breath at rest. PULMONARY: Positive for shortness of breaths. Denied any cough, hemoptysis GASTROINTESTINAL: Denies any type of dysphagia to either liquids or solids. Denies nausea, vomiting, pyrosis, early satiety, abdominal pain, diarrhea, constipation, or changes in stool consistency or caliber. Denies coffee-ground emesis, hematemesis, hematochezia, or melanotic stools. GENITOURINARY: Denies frequency, urgency, nocturia, hematuria or incontinence (Storage/Irritative symptoms.) Low urinary stream, straining to void, urinary intermittency or hesitancy, splitting of the voiding stream, terminal dribbling. ENDOCRINOLOGIC: Denies polyuria, polydipsia, polyphagia or heat/cold intolerances. HEMATOLOGIC: Denies thrombophilia/previous clots, or coagulopathy/bleeding disorders. ONCOLOGIC: Denies personal history of malignancy. DERMATOLOGIC: Denies rashes or pruritus. PSYCHIATRIC: Denies any suicidal or homicidal ideation. Denies hallucinations. PHYSICAL EXAM GENERAL APPEARANCE: The patient is awake, alert, and oriented, in no acute cardiopulmonary distress. Patient is unable to lie flat. She prefers to be in a seated position NEUROLOGICAL: Cranial nerves II-XII grossly intact. Motor is 5/5 in bilateral upper and lower extremities proximal to distal. No sensory deficits. HEENT: Face is symmetric. Pupils are equal and reactive. Extraocular movements are intact. NECK: Supple. No JVD. No thyromegaly. No submental, submandibular, pre- /postauricular, occipital or supraclavicular lymphadenopathy. CHEST: Normal chest expansion. No Telemetry. LUNGS: Absence of any rales, rhonchi or any wheezing. CARDIOVASCULAR: Regular. S1 and S2 normal. No appreciable rubs, murmurs or gallops. ABDOMEN: Soft, nontender, and nondistended. There is no rebound, voluntary guarding, or rigidity. : Deferred. No Schuler. EXTREMITIES: Erythema in the lower extremity bilaterally with pitting edema. She has a wound noted in the left lower extremity. Currently has a dressing present. SKIN: No skin breakdown. Vital Signs (last 8hr) Date Time Temp Pulse Resp B/P (MAP) Pulse Ox O2 Delivery O2 Flow Rate FiO2 01/05/25 09:33 107 20 N/Cannula Low lpm 5.0 40 01/05/25 08:00 97 Nasal Cannula* 6 44 01/05/25 08:00 98.1 102 24 100/58 97 Nasal Cannula 6.0 01/05/25 06:47 102 20 01/05/25 06:00 103 29 104/63 97 CPAP 6.0 01/05/25 05:00 99 23 96/73 96 CPAP 6.0 01/05/25 04:00 98.2 98 24 127/80 97 CPAP 6.0 LABS: Laboratory: Test 01/05/25 04:15 01/05/25 03:53 01/04/25 20:51 01/03/25 17:35 Range/Units Blood Gas Specimen Type Arterial Arterial Blood pH 7.380 7.350-7.450 Arterial Blood Partial Pressure CO2 58 H 32-45 mmHg Arterial Blood Partial Pressure O2 83.6 83.0-108.0 mmHg Arterial Blood HCO3 33.5 H 21.0-28.0 mmol/L Arterial Blood Oxygen Saturation 95.8 94.0-98.0 % Arterial Blood Base Excess 6.9 H -2.0-3.0 mmol/L Hemoglobin (Blood Gas) 11.6 L 12.0-16.0 g/dL Sodium (Blood Gas) 136 136-145 MMOL/L Bedside Potassium (Blood Gas) 3.6 3.4-4.5 MMOL/L Bedside Chloride (Blood Gas) 97 L 98-107 MMOL/L Bedside Glucose (Blood Gas) 118 H 65-95 MG/DL Bedside Ionized Calcium (Blood Gas) 1.10 L 1.15-1.33 MMOL/L Bedside Lactic Acid (Blood Gas) 1.34 H 0.36-0.75 MMOL/L Blood Gas Temperature 37.0 35.5-37.0 CELSIUS Blood Gas Flow-by 5.00 0.00-15.00 L/min Blood Gas Vent Mode HOME CPAP ROOM AIR FiO2 40.0 % Blood Gas Specimen Comment RB RN BENJAMIN White Blood Count 8.4 4.8-10.8 K/uL Red Blood Count 3.77 L 4.00-5.50 MIL/uL Hemoglobin 10.4 L 12.0-16.0 g/dL Hematocrit 34.0 L 36-48 % Mean Corpuscular Volume 90.2 79-99 fL Mean Corpuscular Hemoglobin 27.6 27.0-33.0 pg Mean Corpuscular Hemoglobin Concent 30.6 L 32.0-36.0 g/dL Red Cell Distribution Width 15.6 H 11.0-15.5 % Platelet Count 187 130-400 K/uL Mean Platelet Volume 10.0 7.5-10.5 fL Immature Granulocyte % (Auto) 0.5 0-1 % Neutrophils (%) (Auto) 59.8 40.0-77.0 % Lymphocytes (%) (Auto) 24.2 21.0-51.0 % Monocytes (%) (Auto) 13.8 H 3.0-13.0 % Eosinophils (%) (Auto) 1.3 0.0-8.0 % Basophils (%) (Auto) 0.4 0.0-5.0 % Neutrophils # (Auto) 5.0 1.8-7.7 K/uL Lymphocytes # (Auto) 2.0 1.0-4.8 K/uL Monocytes # (Auto) 1.2 H 0.1-1.0 K/uL Eosinophils # (Auto) 0.11 0.00-0.70 K/uL Basophils # (Auto) 0.03 0.00-0.20 K/uL Absolute Immature Granulocyte (auto 0.04 0-1 K/uL Nucleated Red Blood Cells 0.0 0.0-0.19 % Sodium Level 139 136-145 mmol/L Potassium Level 3.6 3.5-5.1 mmol/L Chloride Level 98 L 101-111 mmol/L Carbon Dioxide Level 36 H 21-32 mmol/L Blood Urea Nitrogen 14 7-18 mg/dL Creatinine 1.0 0.5-1.0 mg/dL Glomerular Filtration Rate Calc 63 >90 mL/min Random Glucose 109 H 70-105 mg/dL Total Calcium 8.4 L 8.5-10.1 mg/dL Magnesium Level 1.90 1.80-2.40 mg/dL Total Bilirubin 0.5 # 0.2-1.0 mg/dL Aspartate Amino Transf (AST/SGOT) 15 10-37 U/L Alanine Aminotransferase (ALT/SGPT) 18 # 12-78 U/L Alkaline Phosphatase 80 50-136 U/L B-Type Natriuretic Peptide 216 H 0-100 pg/mL Total Protein 5.7 L 6.0-8.3 g/dL Albumin 2.2 L 3.5-5.0 g/dL Whole Blood Glucose 140 H 70-110 MG/DL Urine Color YELLOW YELLOW Urine Appearance CLEAR CLEAR Urine pH 5.5 5.0-8.0 Urine Specific [place] OVER 1.001-1.031 Urine Protein TRACE H NEGATIVE mg/dL Urine Glucose (UA) >=1000 H NEGATIVE mg/dL Urine Ketones NEGATIVE NEGATIVE mg/dL Urine Occult Blood NEGATIVE NEGATIVE Urine Nitrate NEGATIVE NEGATIVE Urine Bilirubin NEGATIVE NEGATIVE mg/dL Urine Urobilinogen 0.2 0.2-1.0 mg/dL Urine Leukocyte Esterase NEGATIVE NEGATIVE Christina/uL Urine RBC 2-5 H 0-1 /HPF Urine WBC 0-1 0-1 /HPF Urine Squamous Epithelial Cells MOD 0-2 /HPF Urine Bacteria FEW None Seen /HPF Test 01/03/25 17:11 Range/Units Activated Partial Thromboplast Time 90.5 #*H 26.3-35.5 SEC Current Medications Medications (Trade) Dose Ordered Sig/[place] Route PRN Reason Start Time Stop Time Status Last Admin Dose Admin Acetaminophen (TYLenol 500MG TAB) 500 mg Q6H PRN PO MILD PAIN (1-3) 01/02/25 14:30 02/01/25 14:29 Acetaminophen/ Codeine Phosphate (TYLenol-coDEINE TAB) 1 tab Q6H PRN PO MODERATE PAIN (4-6) 01/03/25 07:00 01/03/25 23:15 DC Apixaban (EliquIS) 5 mg BID PO 01/11/25 09:00 02/10/25 08:59 Apixaban (EliquIS) 10 mg BID PO 01/03/25 21:00 01/10/25 23:00 01/05/25 08:47 10 MG Atorvastatin Calcium (LIPItor 10MG) 10 mg DAILY PO 01/03/25 09:00 01/05/25 08:34 DC 01/04/25 10:53 10 MG Atorvastatin Calcium (LIPItor 10MG) 10 mg HS PO 01/05/25 21:00 02/02/25 08:59 Baclofen (Baclofen) 5 mg TID PRN PO Back Pain 01/05/25 09:00 02/02/25 06:59 01/05/25 08:50 5 MG Baclofen (Baclofen) 5 mg TIDP PRN PO Back Pain 01/03/25 07:00 01/05/25 08:35 DC 01/04/25 20:08 5 MG Ceftriaxone Sodium (ROCEphine 1G INJ) 1 gm Q24H IVPB 01/02/25 15:00 01/02/25 15:19 DC Ceftriaxone Sodium (Rocephin 2gm Inj) 2 gm Q24H IVPB 01/03/25 16:00 01/13/25 15:59 01/04/25 15:13 2 GM Dextrose (D50w) 50 ml AD PRN IV HYPOGLYCEMIA PROTOCOL 01/02/25 19:30 02/01/25 19:29 Famotidine (Pepcid 20mg Vial) 20 mg Q24H IV 01/02/25 21:00 01/04/25 10:03 DC 01/03/25 20:29 20 MG Furosemide (LASix 20MG TAB) 20 mg DAILY PO 01/06/25 09:00 02/05/25 08:59 Furosemide (LASix 20MG VIAL) 20 mg Q8H IV 01/04/25 19:30 01/05/25 09:04 DC 01/05/25 03:03 20 MG Glucagon (Glucagon 1mg Kit) 1 mg AD PRN IM HYPOGLYCEMIA PROTOCOL 01/02/25 19:30 02/01/25 19:29 Heparin Sodium (Porcine) (HEParin 5,000 UNIT VIAL) *calculation based on ACTUAL B... AD PRN IV HEPARIN PROTOCOL 01/02/25 15:00 01/03/25 21:00 DC Heparin Sodium/ Dextrose 250 ml @ 0 mls/hr Q6H IV 01/02/25 15:00 01/03/25 21:00 DC 01/03/25 09:29 0 MLS/HR Hydromorphone HCl (DiLAUDid 0.5MG INJ) 0.2 mg Q4H PRN IVP SEVERE PAIN (7-10) 01/03/25 23:30 01/08/25 23:29 01/05/25 06:38 0.2 MG Insulin Human Regular (humuLIN R 100 UNIT/ML 3ML) INSULIN SLIDING SCAL... ACHS SQ 01/02/25 21:00 02/01/25 20:59 Magnesium Sulfate 50 ml @ 0 mls/hr PROTOCOL PRN IV hypomagnesemia 01/02/25 14:30 02/01/25 14:29 Metoprolol Tartrate (loprESSOR) 25 mg BID PO 01/03/25 14:00 01/04/25 07:17 DC 01/03/25 20:29 25 MG Pantoprazole Sodium (PROTonix 40MG INJ) 40 mg BID IVP 01/04/25 21:00 02/03/25 20:59 01/05/25 08:45 40 MG Pantoprazole Sodium (PROTonix 40MG TAB) 40 mg DAILY PO 01/03/25 09:00 01/04/25 10:02 DC 01/03/25 09:14 40 MG Potassium Chloride 100 ml @ 100 mls/hr AD PRN IV POTASSIUM PROTOCOL 01/02/25 14:30 02/01/25 14:29 Potassium Chloride (K-Dur/Klor-Con 20meq) 20 meq AD PRN PO POTASSIUM PROTOCOL 01/02/25 14:30 02/01/25 14:29 01/05/25 09:03 20 MEQ Potassium Chloride (KCl 10% Elixir 20meq/15ml) 20 meq AD PRN PO POTASSIUM PROTOCOL 01/02/25 14:30 02/01/25 14:29 Pramipexole Dihydrochloride (miraPEX 0.25MG TAB) 0.5 mg HS PO 01/03/25 21:00 02/02/25 20:59 01/04/25 20:08 0.5 MG Prednisone (deltaSONE/ oraSONE 20MG TAB) 20 mg DAILY PO 01/05/25 09:30 01/10/25 09:29 01/05/25 10:14 20 MG Sodium Chloride 1,000 ml @ 150 mls/hr Q6H40M IV 01/02/25 19:30 01/02/25 23:29 DC 01/02/25 19:48 150 MLS/HR Terbinafine HCl (Lamisil) 250 mg DAILY PO 01/03/25 09:00 02/02/25 08:59 01/05/25 08:45 250 MG Tramadol HCl (UltRAM) 50 mg Q6H PRN PO MODERATE PAIN (4-6) 01/03/25 23:30 01/08/25 23:29 01/05/25 08:50 50 MG DIAGNOSTICS / RADIOLOGY: [ ] ASSESSMENT: Bilateral PE POA Acute on chronic hypoxic respiratory failure secondary to PE Troponin elevation likely in setting of PE Lower back pain MRI showing chronic compression fracture of T12 vertebrae 12/16/2024 Bilateral lower extremity edema with chronic wound History of venous stasis History of Pulmonary hypertension History of CardioMEMS device loose Obesity Obstructive sleep apnea Hypertension Hyperlipidemia CKD stage 3 Right ankle calcaneal spur, POA PLAN: Continue Zosyn Trend WBCs Follow-up cultures Continue pramipexole O2 nasal cannula as needed Follow up With Pulmonary/critical Care Medicine -continue Eliquis Continue atorvastatin Monitor blood pressure Follow up with Cardiology Heart healthy diet GI prophylaxis with pantoprazole No need for IV fluids Trend a.m. BMP Replete electrolytes as necessary DVT prophylaxis with heparin Trend a.m. CBC I agree with consulting Physical therapy Full code Case was discussed with patient's nurse at bedside Attention time greater than 30 minutes RALPH WHITTAKER IV, MD Jan 05, 2025 11:11
--- NOTE | 2025-01-05 14:21 | HMCIMG ---
Comparison: January 03 2025 Findings: The heart is enlarged in size and the lungs are clear. There are no pleural effusions. There is no acute fracture. There is no pneumothorax. IMPRESSION: Cardiomegaly. /[place]
--- NOTE | 2025-01-05 14:21 | HMCIMG ---
EXAM: CR Chest, 1 View. CLINICAL HISTORY: hypoxic resp failure COMPARISON: January 03 2025 FINDINGS: LUNGS: There is no mass, infiltrate, or acute pulmonary abnormality. PLEURAL SPACES: No pleural effusion or pneumothorax. MEDIASTINUM: The cardiomediastinal silhouette is within normal limits. BONES: No acute osseous abnormality. IMPRESSION: No acute cardiopulmonary pathology is evident. /[place]
--- NOTE | 2025-01-05 15:33 | NUR ---
[facility] Consult: Patient assessed by wound healing team. See wound assessment. Assessment and recommendations provided to primary nurse. Education provided. Wound care done. Addendum: 01/06/25 at 1141 by DMITRIY EDWARDS RN RN/ Amended: Links added.
[2025-01-05] MEDS: SODIUM HYPOCHLORITE 0.25% [HALF STRENGTH] 473 ML TOPICAL SOLN TP SCH (21:00)
[2025-01-06] VITALS (12 sets, daily range): BP systolic 108–140; BP diastolic 71–86; PULSE 89–105; RESP 18–20; TEMP 97.9–98.4; O2SAT 92–99
--- NOTE | 2025-01-06 12:47 | PN ---
[facility] CARDIOLOGY PROGRESS NOTE Date Patient Seen: Jan 06, 2025 Time of Visit: 12:43 Interval History: [No acute events overnight , no telemetry events currently with a heart rate of 99 beats per minute, O2 by nasal cannula at 4 L/min, currently denying any chest pain, palpitations, dyspnea or any other anginal equivalents Physical Examination: GENERAL: [No acute distress.] HEAD: [Normal with no signs of head trauma.] EYES: [PERRLA, EOMI, conjunctiva and sclera normal.] ENT: [Hearing grossly intact, normal oropharynx.] NECK: [Supple without JVD. There is no tenderness, lymphadenopathy, or masses. No thyromegaly. Normal carotid upstrokes without bruits.] LUNGS: [Clear breath sounds bilaterally. No wheezes, or rhonchi.] HEART: [Normal rate and rhythm. Normal S1 and S2 without mumurs, gallop or rub.] VASC: [Peripheral pulses +2 bilaterally.] ABD: [Bowel sounds normal, soft, nontender, no masses, no organomegaly. No a udible bruits.] : [Not examined] LYMPH: [No lymphadenopathy noted.] EXT: [1+ bilateral LE pitting edema ] SKIN: [No rashes or lesions noted.] NEURO: [Awake, alert, and oriented x3. No focal sensory or strength deficits noted.] Laboratory: [ ] Hematology Labs: Test 01/05/25 03:53 Range/Units White Blood Count 8.4 4.8-10.8 K/uL Red Blood Count 3.77 L 4.00-5.50 MIL/uL Hemoglobin 10.4 L 12.0-16.0 g/dL Hematocrit 34.0 L 36-48 % Mean Corpuscular Volume 90.2 79-99 fL Mean Corpuscular Hemoglobin 27.6 27.0-33.0 pg Mean Corpuscular Hemoglobin Concent 30.6 L 32.0-36.0 g/dL Red Cell Distribution Width 15.6 H 11.0-15.5 % Platelet Count 187 130-400 K/uL Mean Platelet Volume 10.0 7.5-10.5 fL Immature Granulocyte % (Auto) 0.5 0-1 % Neutrophils (%) (Auto) 59.8 40.0-77.0 % Lymphocytes (%) (Auto) 24.2 21.0-51.0 % Monocytes (%) (Auto) 13.8 H 3.0-13.0 % Eosinophils (%) (Auto) 1.3 0.0-8.0 % Basophils (%) (Auto) 0.4 0.0-5.0 % Neutrophils # (Auto) 5.0 1.8-7.7 K/uL Lymphocytes # (Auto) 2.0 1.0-4.8 K/uL Monocytes # (Auto) 1.2 H 0.1-1.0 K/uL Eosinophils # (Auto) 0.11 0.00-0.70 K/uL Basophils # (Auto) 0.03 0.00-0.20 K/uL Absolute Immature Granulocyte (auto 0.04 0-1 K/uL Nucleated Red Blood Cells 0.0 0.0-0.19 % Chemistry Labs: Test 01/06/25 12:34 01/06/25 04:45 01/05/25 03:53 Range/Units Whole Blood Glucose 208 #H 70-110 MG/DL Magnesium Level 1.90 1.80-2.40 mg/dL Sodium Level 139 136-145 mmol/L Potassium Level 3.6 3.5-5.1 mmol/L Chloride Level 98 L 101-111 mmol/L Carbon Dioxide Level 36 H 21-32 mmol/L Blood Urea Nitrogen 14 7-18 mg/dL Creatinine 1.0 0.5-1.0 mg/dL Glomerular Filtration Rate Calc 63 >90 mL/min Random Glucose 109 H 70-105 mg/dL Total Calcium 8.4 L 8.5-10.1 mg/dL Total Bilirubin 0.5 # 0.2-1.0 mg/dL Aspartate Amino Transf (AST/SGOT) 15 10-37 U/L Alanine Aminotransferase (ALT/SGPT) 18 # 12-78 U/L Alkaline Phosphatase 80 50-136 U/L B-Type Natriuretic Peptide 216 H 0-100 pg/mL Total Protein 5.7 L 6.0-8.3 g/dL Albumin 2.2 L 3.5-5.0 g/dL Diagnostics / Radiology: [Copy/Paste Echos/Imaging Report here] Impression and Plan: [-Acute hypoxemic respiratory failure, currently on NC -Bilateral pulmonary emboli with evidence of RH strain identified on CTA done on 01/02/2025 -LLE DVT identified on venous Doppler done on 01/02/2025 -Elevated troponin (type II NH) -Sinus tachycardia -Electrolyte derangement -Chronic venous insufficiency with venous stasis ulcers -HTN -HLP -DM2 -RA -COPD, on intermittent oxygen therapy -PH -HFpEF (LVEF: 60-65% by echo done 12/10/2024) s/p CardioMEMS insertion -Chronic back pain with compression fractures involving T12, L1, and L2 -Morbid obesity Plan: 1. Bilateral pulmonary emboli with evidence of RH strain identified on CTA done on 01/02/2025 -patient currently denies any chest pain, palpitations, dyspnea or any other anginal equivalents. -no telemetry events overnight, currently with a heart rate of 99 bpm, requiring O2 by nasal cannula at 4 L/min -Cardiac enzymes-HS troponin I: 235>510>1267 -2D echocardiogram done on 01/02/2025 (preliminary) identified evidence of right heart strain. - She is status post PE thrombectomy 01/02/2025.With removal of significant clot burden -Continue with Eliquis 10 mg every 12 hrs x 7 day and the follow with Eliquis 5 mg every 12 hrs after that -we will stop IV Lasix, start [id number] mg daily -Continue PT- OT Thank you for this consult , cardiology will continue to follow along Manpreet Mac MD ] ATTESTATION BY PHYSICIAN I have seen and examined the patient, reviewed the above documentation, participated in medical decision making, made necessary modifications, and agree with the treatment plan as documented by my mid-level provider above. MD DORETHA Alfredo JAMES R MD Jan 06, 2025 12:46
--- NOTE | 2025-01-06 15:06 | PN ---
[facility] PROGRESS NOTE Date Patient Seen: Jan 06, 2025 Time of Visit: 15:05 Supervising Physician: Dr Javier Shirley Primary Care Physician: VINCE HASSAN MD Outpatient Specialists: [ ] Inpatient Consults: BIS PROBLEM LIST: Acute on chronic hypoxic respiratory failure POA Bilateral PE S/P Successful Bilateral Pulmonary Embolectomy 01/03/25 NSTEMI POA Left SFV + DVT Lower back pain MRI showing chronic compression fracture of T12 vertebrae Bilateral lower extremity edema with chronic wound History of venous stasis History of Pulmonary hypertension History of CardioMEMS Obesity Obstructive sleep apnea Hypertension Hyperlipidemia CKD stage 3 INTERVAL HISTORY: Patient comfortable, nursing reports no acute complications Good O2 sats Afebrile Vital signs stable Chest x-ray clear Plan: Continue follow cardiology recs Supplemental O2 Case management for placement Pulmonology we will sign off, thank you for allowing us to participate in the care of your patient. Total care time 37 minutes excludes any time spent on procedures or educational time REVIEW OF SYSTEMS: Const: + fatigue,+ mild anxiety Eyes: no recent vision problems ENT: No congestion, ear pain, or sore throat C/V: + chest pain, palpitations, + bilateral pitting edema to lower extremities Resp: + shortness for breath, dyspnea on minimal exertion GI: No abdominal pain, nausea, vomiting, constipation, or diarrhea : No incontinence of or dyuria M/S: + bilateral lower extremity swelling+ back pain Skin: + chronic venous stasis ulcers to bilateral lower extremities Neuro: -numbness weakness and dizziness Psych: no depression or anxiety Heme: no abnormal bruising or bleeding Endocrinology: + thyroid mass Lymph: [no swollen glands PHYSICAL EXAM: GENERAL: alert, weak, awake oriented x 3, fatigue HEENT: EOMI, Sclera non icteric, moist mucosa NECK: History of thyroid mass, no JVD, trachea midline LUNGS: Diminished breath sounds bilaterally. No wheezes HEART: Regular rate and rhythm. Normal S1 and S2, without murmurs ABD: Abdomen soft, nontender. Bowel sounds present EXT: No clubbing cyanosis or edema NEURO: Alert and oriented to person, follows commands Vital Signs (last 8hr) Date Time Temp Pulse Resp B/P (MAP) Pulse Ox O2 Delivery O2 Flow Rate FiO2 01/06/25 11:43 97.9 99 18 131/72 97 Nasal Cannula 4.0 01/06/25 07:49 98.2 102 18 127/75 95 Nasal Cannula 4.0 01/06/25 07:22 20 N/Cannula Low lpm 4.0 36 LABS: Hematology Labs: Test 01/05/25 03:53 Range/Units White Blood Count 8.4 4.8-10.8 K/uL Red Blood Count 3.77 L 4.00-5.50 MIL/uL Hemoglobin 10.4 L 12.0-16.0 g/dL Hematocrit 34.0 L 36-48 % Mean Corpuscular Volume 90.2 79-99 fL Mean Corpuscular Hemoglobin 27.6 27.0-33.0 pg Mean Corpuscular Hemoglobin Concent 30.6 L 32.0-36.0 g/dL Red Cell Distribution Width 15.6 H 11.0-15.5 % Platelet Count 187 130-400 K/uL Mean Platelet Volume 10.0 7.5-10.5 fL Immature Granulocyte % (Auto) 0.5 0-1 % Neutrophils (%) (Auto) 59.8 40.0-77.0 % Lymphocytes (%) (Auto) 24.2 21.0-51.0 % Monocytes (%) (Auto) 13.8 H 3.0-13.0 % Eosinophils (%) (Auto) 1.3 0.0-8.0 % Basophils (%) (Auto) 0.4 0.0-5.0 % Neutrophils # (Auto) 5.0 1.8-7.7 K/uL Lymphocytes # (Auto) 2.0 1.0-4.8 K/uL Monocytes # (Auto) 1.2 H 0.1-1.0 K/uL Eosinophils # (Auto) 0.11 0.00-0.70 K/uL Basophils # (Auto) 0.03 0.00-0.20 K/uL Absolute Immature Granulocyte (auto 0.04 0-1 K/uL Nucleated Red Blood Cells 0.0 0.0-0.19 % Chemistry Labs: Test 01/06/25 12:34 01/06/25 04:45 01/05/25 03:53 Range/Units Whole Blood Glucose 208 #H 70-110 MG/DL Magnesium Level 1.90 1.80-2.40 mg/dL Sodium Level 139 136-145 mmol/L Potassium Level 3.6 3.5-5.1 mmol/L Chloride Level 98 L 101-111 mmol/L Carbon Dioxide Level 36 H 21-32 mmol/L Blood Urea Nitrogen 14 7-18 mg/dL Creatinine 1.0 0.5-1.0 mg/dL Glomerular Filtration Rate Calc 63 >90 mL/min Random Glucose 109 H 70-105 mg/dL Total Calcium 8.4 L 8.5-10.1 mg/dL Total Bilirubin 0.5 # 0.2-1.0 mg/dL Aspartate Amino Transf (AST/SGOT) 15 10-37 U/L Alanine Aminotransferase (ALT/SGPT) 18 # 12-78 U/L Alkaline Phosphatase 80 50-136 U/L B-Type Natriuretic Peptide 216 H 0-100 pg/mL Total Protein 5.7 L 6.0-8.3 g/dL Albumin 2.2 L 3.5-5.0 g/dL DIAGNOSTICS / RADIOLOGY RESULTS: [ ] PLAN NEURO: Minimize central acting medications as possible. Maintain fall precautions, adequate lighting during the day PULMONARY: Supplemental 02 as needed. Maintain aspiration precautions at all times CARDIOVASCULAR: Follow hemodynamics. Vital signs per facility protocol GI & NUTRITION: Continue with nutritional support. Continue stool softeners and laxatives as needed. KIDNEYS & ELECTROLYTES: Strict monitoring of intake, output and overall fluid balance. Avoid nephrotoxic medications to the extent possible. Medications to be dosed according to renal function. Monitor electrolytes and replace as needed ENDOCRINE: Maintain blood glucose between 100-180 at all times. Hypoglycemia protocol in place INFECTIOUS DISEASE: Trend temperature, WBC and procalcitonin level Follow cultures, deescalate antibiotics as soon as possible. Panculture if new onset fever ONCOLOGY/HEMATOLOGY/COAGULATION: Monitor for s/s of bleeding Monitor hemoglobin, coagulation studies as needed SKIN: Pressure ulcer prevention per facility protocol Specialty mattress ORTHO/REHAB: Continue PT/OT Prophylaxis: Continue GI and DVT prophylaxis Code Status: Full Resuscitation Disposition: AVANI HIGGINS PAC Jan 06, 2025 15:06
--- NOTE | 2025-01-06 15:44 | NUR ---
Discharge Plan Spoke with pt regarding discharge options, pt refusing skilled facility. Pt verbalizes she will be going home and will resume [facility] for her wound care.
--- NOTE | 2025-01-06 16:36 | PN ---
[facility] PROGRESS NOTE Date of Service: Jan 06, 2025 Time of Service: 16:[address] Barcenas SUBJECTIVE: 01/04 Patient underwent pulmonary thrombectomy. Complications reported. Patient is resting comfortably in bedside chair. She reports postprocedure she is feeling better. Patient has been transitioned to Eliquis 01/05 patient is resting comfortably in bed. Yesterday the patient has complained of right sided rib pain and and right ankle pain. X-ray of the right ribs was negative for fracture and no pneumothorax. X-ray of the right ankle demonstrated calcaneal spur with inflammation of the surrounding tissue. Patient is undergoing home O2 evaluation, physical therapy evaluation 01/06 patient was seen by nurse practitioner and physician during rounding in room 231 lying in the bed. Nurse practitioner was able to speak to Dr. Manpreet Mac regarding the diuresis. We will discontinue Lasix IV and we will place patient on Bumex 1 mg p.o. b.i.d. starting today. We will monitor patient's blood pressure in the meantime. If tomorrow BP we will be stable we will add spironolactone 25 mg daily. Patient is also complaining of some cough. Robitussin we will be ordered. As per case management patient is refusing SNF. Patient would like to return home with her home health. 6 minute walk prior discharge was ordered. We will continue to monitor patient in the meantime. A.m. labs REVIEW OF SYSTEMS CONSTITUTIONAL: Denies fevers, chills, or night sweats. No unintentional weight loss reported. NEUROLOGICAL: Denies headache, amaurosis fugax, motor weakness, sensory d eficit, vertigo/spinning sensation, gait abnormalities, or tremors. ENT: No hearing loss, otalgia, otorrhea, rhinitis, rhinorrhea, hoarseness, or sore throat. CARDIOVASCULAR: Denies any chest pain, PULMONARY: Positive for shortness of breaths. Complains of cough GASTROINTESTINAL: Denies any type of dysphagia to either liquids or solids. Denies nausea, vomiting, pyrosis, early satiety, abdominal pain, diarrhea, constipation, or changes in stool consistency or caliber. Denies coffee-ground emesis, hematemesis, hematochezia, or melanotic stools. GENITOURINARY: Denies frequency, urgency, nocturia, hematuria or incontinence (Storage/Irritative symptoms.) Low urinary stream, straining to void, urinary intermittency or hesitancy, splitting of the voiding stream, terminal dribbling. ENDOCRINOLOGIC: Denies polyuria, polydipsia, polyphagia or heat/cold intolerances. HEMATOLOGIC: Denies thrombophilia/previous clots, or coagulopathy/bleeding disorders. ONCOLOGIC: Denies personal history of malignancy. DERMATOLOGIC: Denies rashes or pruritus. PSYCHIATRIC: Denies any suicidal or homicidal ideation. Denies hallucinations. PHYSICAL EXAM GENERAL APPEARANCE: The patient is awake, alert, and oriented, in no acute cardiopulmonary distress. Patient is unable to lie flat. She prefers to be in a seated position NEUROLOGICAL: Cranial nerves II-XII grossly intact. Motor is 5/5 in bilateral upper and lower extremities proximal to distal. No sensory deficits. HEENT: Face is symmetric. Pupils are equal and reactive. Extraocular movements are intact. NECK: Supple. No JVD. No thyromegaly. No submental, submandibular, pre- /postauricular, occipital or supraclavicular lymphadenopathy. CHEST: Normal chest expansion. No Telemetry. LUNGS: Absence of any rales, rhonchi or any wheezing. CARDIOVASCULAR: Regular. S1 and S2 normal. No appreciable rubs, murmurs or gallops. ABDOMEN: Soft, nontender, and nondistended. There is no rebound, voluntary guarding, or rigidity. : Deferred. No Schuler. EXTREMITIES: Erythema in the lower extremity bilaterally with pitting edema. She has a wound noted in the left lower extremity. Currently has a dressing present. SKIN: No skin breakdown. Vital Signs (last 8hr) Date Time Temp Pulse Resp B/P (MAP) Pulse Ox O2 Delivery O2 Flow Rate FiO2 01/06/25 15:24 97.9 105 18 139/80 96 Nasal Cannula 4.0 01/06/25 11:43 97.9 99 18 131/72 97 Nasal Cannula 4.0 LABS: Laboratory: Test 01/06/25 12:34 01/06/25 04:45 01/05/25 04:15 01/05/25 03:53 Range/Units Whole Blood Glucose 208 #H 70-110 MG/DL Magnesium Level 1.90 1.80-2.40 mg/dL Blood Gas Specimen Type Arterial Arterial Blood pH 7.380 7.350-7.450 Arterial Blood Partial Pressure CO2 58 H 32-45 mmHg Arterial Blood Partial Pressure O2 83.6 83.0-108.0 mmHg Arterial Blood HCO3 33.5 H 21.0-28.0 mmol/L Arterial Blood Oxygen Saturation 95.8 94.0-98.0 % Arterial Blood Base Excess 6.9 H -2.0-3.0 mmol/L Hemoglobin (Blood Gas) 11.6 L 12.0-16.0 g/dL Sodium (Blood Gas) 136 136-145 MMOL/L Bedside Potassium (Blood Gas) 3.6 3.4-4.5 MMOL/L Bedside Chloride (Blood Gas) 97 L 98-107 MMOL/L Bedside Glucose (Blood Gas) 118 H 65-95 MG/DL Bedside Ionized Calcium (Blood Gas) 1.10 L 1.15-1.33 MMOL/L Bedside Lactic Acid (Blood Gas) 1.34 H 0.36-0.75 MMOL/L Blood Gas Temperature 37.0 35.5-37.0 CELSIUS Blood Gas Flow-by 5.00 0.00-15.00 L/min Blood Gas Vent Mode HOME CPAP ROOM AIR FiO2 40.0 % Blood Gas Specimen Comment RB RN BENJAMIN White Blood Count 8.4 4.8-10.8 K/uL Red Blood Count 3.77 L 4.00-5.50 MIL/uL Hemoglobin 10.4 L 12.0-16.0 g/dL Hematocrit 34.0 L 36-48 % Mean Corpuscular Volume 90.2 79-99 fL Mean Corpuscular Hemoglobin 27.6 27.0-33.0 pg Mean Corpuscular Hemoglobin Concent 30.6 L 32.0-36.0 g/dL Red Cell Distribution Width 15.6 H 11.0-15.5 % Platelet Count 187 130-400 K/uL Mean Platelet Volume 10.0 7.5-10.5 fL Immature Granulocyte % (Auto) 0.5 0-1 % Neutrophils (%) (Auto) 59.8 40.0-77.0 % Lymphocytes (%) (Auto) 24.2 21.0-51.0 % Monocytes (%) (Auto) 13.8 H 3.0-13.0 % Eosinophils (%) (Auto) 1.3 0.0-8.0 % Basophils (%) (Auto) 0.4 0.0-5.0 % Neutrophils # (Auto) 5.0 1.8-7.7 K/uL Lymphocytes # (Auto) 2.0 1.0-4.8 K/uL Monocytes # (Auto) 1.2 H 0.1-1.0 K/uL Eosinophils # (Auto) 0.11 0.00-0.70 K/uL Basophils # (Auto) 0.03 0.00-0.20 K/uL Absolute Immature Granulocyte (auto 0.04 0-1 K/uL Nucleated Red Blood Cells 0.0 0.0-0.19 % Sodium Level 139 136-145 mmol/L Potassium Level 3.6 3.5-5.1 mmol/L Chloride Level 98 L 101-111 mmol/L Carbon Dioxide Level 36 H 21-32 mmol/L Blood Urea Nitrogen 14 7-18 mg/dL Creatinine 1.0 0.5-1.0 mg/dL Glomerular Filtration Rate Calc 63 >90 mL/min Random Glucose 109 H 70-105 mg/dL Total Calcium 8.4 L 8.5-10.1 mg/dL Total Bilirubin 0.5 # 0.2-1.0 mg/dL Aspartate Amino Transf (AST/SGOT) 15 10-37 U/L Alanine Aminotransferase (ALT/SGPT) 18 # 12-78 U/L Alkaline Phosphatase 80 50-136 U/L B-Type Natriuretic Peptide 216 H 0-100 pg/mL Total Protein 5.7 L 6.0-8.3 g/dL Albumin 2.2 L 3.5-5.0 g/dL Current Medications Medications (Trade) Dose Ordered Sig/Ashanti Route PRN Reason Start Time Stop Time Status Last Admin Dose Admin Acetaminophen (TYLenol 500MG TAB) 500 mg Q6H PRN PO MILD PAIN (1-3) 01/02/25 14:30 02/01/25 14:29 Acetaminophen/ Codeine Phosphate (TYLenol-coDEINE TAB) 1 tab Q6H PRN PO MODERATE PAIN (4-6) 01/03/25 07:00 01/03/25 23:15 DC Apixaban (EliquIS) 5 mg BID PO 01/11/25 09:00 02/10/25 08:59 Apixaban (EliquIS) 10 mg BID PO 01/03/25 21:00 01/10/25 23:00 01/06/25 07:59 10 MG Atorvastatin Calcium (LIPItor 10MG) 10 mg DAILY PO 01/03/25 09:00 01/05/25 08:34 DC 01/04/25 10:53 10 MG Atorvastatin Calcium (LIPItor 10MG) 10 mg HS PO 01/05/25 21:00 02/02/25 08:59 01/05/25 20:48 10 MG Baclofen (Baclofen) 5 mg TID PRN PO Back Pain 01/05/25 09:00 02/02/25 06:59 01/06/25 08:06 5 MG Baclofen (Baclofen) 5 mg TIDP PRN PO Back Pain 01/03/25 07:00 01/05/25 08:35 DC 01/04/25 20:08 5 MG Ceftriaxone Sodium (ROCEphine 1G INJ) 1 gm Q24H IVPB 01/02/25 15:00 01/02/25 15:19 DC Ceftriaxone Sodium (Rocephin 2gm Inj) 2 gm Q24H IVPB 01/03/25 16:00 01/13/25 15:59 01/06/25 15:40 2 GM Dextrose (D50w) 50 ml AD PRN IV HYPOGLYCEMIA PROTOCOL 01/02/25 19:30 02/01/25 19:29 Famotidine (Pepcid 20mg Vial) 20 mg Q24H IV 01/02/25 21:00 01/04/25 10:03 DC 01/03/25 20:29 20 MG Furosemide (LASix 20MG TAB) 20 mg DAILY PO 01/06/25 09:00 02/05/25 08:59 01/06/25 07:59 20 MG Furosemide (LASix 20MG VIAL) 20 mg Q8H IV 01/04/25 19:30 01/05/25 09:04 DC 01/05/25 03:03 20 MG Glucagon (Glucagon 1mg Kit) 1 mg AD PRN IM HYPOGLYCEMIA PROTOCOL 01/02/25 19:30 02/01/25 19:29 Guaifenesin/ Dextromethorphan (RobiTUSSin DM 200/20MG 10ML) 5 ml Q4H PRN PO COUGH 01/06/25 16:30 02/05/25 16:29 UNV Heparin Sodium (Porcine) (HEParin 5,000 UNIT VIAL) *calculation based on ACTUAL B... AD PRN IV HEPARIN PROTOCOL 01/02/25 15:00 01/03/25 21:00 DC Heparin Sodium/ Dextrose 250 ml @ 0 mls/hr Q6H IV 01/02/25 15:00 01/03/25 21:00 DC 01/03/25 09:29 0 MLS/HR Hydromorphone HCl (DiLAUDid 0.5MG INJ) 0.2 mg Q4H PRN IVP SEVERE PAIN (7-10) 01/03/25 23:30 01/08/25 23:29 01/06/25 15:40 0.2 MG Insulin Human Regular (humuLIN R 100 UNIT/ML 3ML) INSULIN SLIDING SCAL... ACHS SQ 01/02/25 21:00 02/01/25 20:59 01/06/25 13:03 3 UNIT Magnesium Sulfate 50 ml @ 0 mls/hr PROTOCOL PRN IV hypomagnesemia 01/02/25 14:30 02/01/25 14:29 Metoprolol Tartrate (loprESSOR) 25 mg BID PO 01/03/25 14:00 01/04/25 07:17 DC 01/03/25 20:29 25 MG Pantoprazole Sodium (PROTonix 40MG INJ) 40 mg BID IVP 01/04/25 21:00 02/03/25 20:59 01/06/25 07:58 40 MG Pantoprazole Sodium (PROTonix 40MG TAB) 40 mg DAILY PO 01/03/25 09:00 01/04/25 10:02 DC 01/03/25 09:14 40 MG Potassium Chloride 100 ml @ 100 mls/hr AD PRN IV POTASSIUM PROTOCOL 01/02/25 14:30 02/01/25 14:29 Potassium Chloride (K-Dur/Klor-Con 20meq) 20 meq AD PRN PO POTASSIUM PROTOCOL 01/02/25 14:30 02/01/25 14:29 01/05/25 09:03 20 MEQ Potassium Chloride (KCl 10% Elixir 20meq/15ml) 20 meq AD PRN PO POTASSIUM PROTOCOL 01/02/25 14:30 02/01/25 14:29 Pramipexole Dihydrochloride (miraPEX 0.25MG TAB) 0.5 mg HS PO 01/03/25 21:00 02/02/25 20:59 01/05/25 20:48 0.5 MG Prednisone (deltaSONE/ oraSONE 20MG TAB) 20 mg DAILY PO 01/05/25 09:30 01/10/25 09:29 01/06/25 07:59 20 MG Sodium Hypochlorite (Dakin'S 0.25% Half Strength) 1 APPL BID TP 01/05/25 21:00 02/04/25 20:59 01/06/25 13:04 1 APPL Sodium Chloride 1,000 ml @ 150 mls/hr Q6H40M IV 01/02/25 19:30 01/02/25 23:29 DC 01/02/25 19:48 150 MLS/HR Terbinafine HCl (Lamisil) 250 mg DAILY PO 01/03/25 09:00 02/02/25 08:59 01/06/25 07:58 250 MG Tramadol HCl (UltRAM) 50 mg Q6H PRN PO MODERATE PAIN (4-6) 01/03/25 23:30 01/08/25 23:29 01/06/25 08:00 50 MG DIAGNOSTICS / RADIOLOGY: [ ] ASSESSMENT: Bilateral PE POA Acute on chronic hypoxic respiratory failure secondary to PE Troponin elevation likely in setting of PE Lower back pain MRI showing chronic compression fracture of T12 vertebrae 12/16/2024 Acute diastolic congestive heart failure Bilateral lower extremity edema with chronic wound History of venous stasis History of Pulmonary hypertension History of CardioMEMS device loose Obesity Obstructive sleep apnea Hypertension Hyperlipidemia CKD stage 3 Right ankle calcaneal spur, POA PLAN: Nurse practitioner was able to speak to Dr. Manpreet Mac regarding the diuresis. We will discontinue Lasix IV and we will place patient on Bumex 1 mg p.o. b.i.d. starting today. We will monitor patient's blood pressure in the meantime. If tomorrow BP we will be stable we will add spironolactone 25 mg daily. Patient is also complaining of some cough. Robitussin we will be ordered. As per case management patient is refusing SNF. Patient would like to return home with her home health. 6 minute walk prior discharge was ordered. We will continue to monitor patient in the meantime. A.m. labs Continue Zosyn Trend WBCs Continue pramipexole O2 nasal cannula as needed Follow up With Pulmonary/critical Care Medicine -continue Eliquis Continue atorvastatin Monitor blood pressure Follow up with Cardiology Heart healthy diet GI prophylaxis with pantoprazole No need for IV fluids Trend a.m. BMP Replete electrolytes as necessary DVT prophylaxis with heparin Trend a.m. CBC I agree with consulting Physical therapy Full code Case was discussed with patient's nurse at bedside Attention time greater than 30 minutes ATTESTATION BY PHYSICIAN I have seen and examined the patient. I reviewed the documentation, medical decision making, and treatment plan as noted by the mid-level provider above. I agree with the findings and plan of care. Bianca Barcenas MD, KATARZYNA B [employer] Jan 06, 2025 16:35
[2025-01-06] MEDS: guaiFENesin-DM 200/20MG 10ML PO PRN (16:51)
--- NOTE | 2025-01-06 17:24 | CONS ---
CONSULTATION NOTE Date of Service: Jan 06, 2025 Reason for Consultation: [ ] Requesting Physician: [ ] HISTORY OF PRESENT ILLNESS: [ ] REVIEW OF SYSTEMS CONSTITUTIONAL: Denies fever, chills, or fatigue. HEAD/FACE: No signs of trauma. EENT: Denies eye pain, blurred vision, double vision, or light sensitivity. RESPIRATORY: Denies shortness of breath, cough, wheezing CARDIOVASCULAR: Denies chest pain, palpitation, syncope GASTROINTESTINAL/ABDOMINAL: Denies abdominal pain, constipation, diarrhea, nausea or vomiting GENITOURINARY: Denies dysuria or hematuria. MUSCULOSKELETAL: Denies joint pain, tenderness, or trauma. INTEGUMENTARY: Denies rash or itchiness NEUROLOGICAL/PSYCH: Denies anxiety, depression, heat or cold intolerance. PAST MEDICAL HISTORY: [ ] PAST SURGICAL HISTORY: [ ] PAST SOCIAL HISTORY: [ ] FAMILY HISTORY: [ ] Coded Allergies: gabapentin (Unverified Allergy, Intermediate, 12/09/24) No Known Drug Allergies (Verified Allergy, Unknown, 05/21/19) PHYSICAL EXAM EYES: Anicteric. Pupils equal and reactive. HENT: No oral thrush seen, moist Oral mucosa NECK: Supple, no JVD or thyromegaly. LUNGS: Good air entry. No rales, no rhonchi. CARDIOVASCULAR: S1, S2 regular. No murmur heard. ABDOMEN: Soft, non tender, bowel sounds present, no organomegaly CENTRAL NERVOUS SYSTEM: Awake, alert, oriented x 3. No focal deficits. SKIN: No rashes, no swelling. LYMPHATICS: No peripheral lymphadenopathy MUSCULOSKELETAL: No joint swelling, erythema or tenderness. EXTREMITIES: No cyanosis or clubbing BACK: No deformity, no pressure ulcer. GENITOURINARY: No dysuria or hematuria Vital Sign (Last 24 Hours) 01/06/25 01/06/25 07:22 15:24 Temp 97.9 Pulse 105 Resp 18 B/P (MAP) 139/80 Pulse Ox 96 O2 Delivery Nasal Cannula O2 Flow Rate 4.0 FiO2 36 Intake & Output (last 24hrs) 01/05/25 01/05/25 01/06/25 15:00 23:00 07:00 Intake Total 740 ml 240 ml Balance 740 ml 240 ml LABS: Laboratory: Test 01/06/25 16:55 01/06/25 04:45 01/05/25 04:15 01/05/25 03:53 Range/Units Whole Blood Glucose 152 H 70-110 MG/DL Magnesium Level 1.90 1.80-2.40 mg/dL Blood Gas Specimen Type Arterial Arterial Blood pH 7.380 7.350-7.450 Arterial Blood Partial Pressure CO2 58 H 32-45 mmHg Arterial Blood Partial Pressure O2 83.6 83.0-108.0 mmHg Arterial Blood HCO3 33.5 H 21.0-28.0 mmol/L Arterial Blood Oxygen Saturation 95.8 94.0-98.0 % Arterial Blood Base Excess 6.9 H -2.0-3.0 mmol/L Hemoglobin (Blood Gas) 11.6 L 12.0-16.0 g/dL Sodium (Blood Gas) 136 136-145 MMOL/L Bedside Potassium (Blood Gas) 3.6 3.4-4.5 MMOL/L Bedside Chloride (Blood Gas) 97 L 98-107 MMOL/L Bedside Glucose (Blood Gas) 118 H 65-95 MG/DL Bedside Ionized Calcium (Blood Gas) 1.10 L 1.15-1.33 MMOL/L Bedside Lactic Acid (Blood Gas) 1.34 H 0.36-0.75 MMOL/L Blood Gas Temperature 37.0 35.5-37.0 CELSIUS Blood Gas Flow-by 5.00 0.00-15.00 L/min Blood Gas Vent Mode HOME CPAP ROOM AIR FiO2 40.0 % Blood Gas Specimen Comment RB RN BENJAMIN White Blood Count 8.4 4.8-10.8 K/uL Red Blood Count 3.77 L 4.00-5.50 MIL/uL Hemoglobin 10.4 L 12.0-16.0 g/dL Hematocrit 34.0 L 36-48 % Mean Corpuscular Volume 90.2 79-99 fL Mean Corpuscular Hemoglobin 27.6 27.0-33.0 pg Mean Corpuscular Hemoglobin Concent 30.6 L 32.0-36.0 g/dL Red Cell Distribution Width 15.6 H 11.0-15.5 % Platelet Count 187 130-400 K/uL Mean Platelet Volume 10.0 7.5-10.5 fL Immature Granulocyte % (Auto) 0.5 0-1 % Neutrophils (%) (Auto) 59.8 40.0-77.0 % Lymphocytes (%) (Auto) 24.2 21.0-51.0 % Monocytes (%) (Auto) 13.8 H 3.0-13.0 % Eosinophils (%) (Auto) 1.3 0.0-8.0 % Basophils (%) (Auto) 0.4 0.0-5.0 % Neutrophils # (Auto) 5.0 1.8-7.7 K/uL Lymphocytes # (Auto) 2.0 1.0-4.8 K/uL Monocytes # (Auto) 1.2 H 0.1-1.0 K/uL Eosinophils # (Auto) 0.11 0.00-0.70 K/uL Basophils # (Auto) 0.03 0.00-0.20 K/uL Absolute Immature Granulocyte (auto 0.04 0-1 K/uL Nucleated Red Blood Cells 0.0 0.0-0.19 % Sodium Level 139 136-145 mmol/L Potassium Level 3.6 3.5-5.1 mmol/L Chloride Level 98 L 101-111 mmol/L Carbon Dioxide Level 36 H 21-32 mmol/L Blood Urea Nitrogen 14 7-18 mg/dL Creatinine 1.0 0.5-1.0 mg/dL Glomerular Filtration Rate Calc 63 >90 mL/min Random Glucose 109 H 70-105 mg/dL Total Calcium 8.4 L 8.5-10.1 mg/dL Total Bilirubin 0.5 # 0.2-1.0 mg/dL Aspartate Amino Transf (AST/SGOT) 15 10-37 U/L Alanine Aminotransferase (ALT/SGPT) 18 # 12-78 U/L Alkaline Phosphatase 80 50-136 U/L B-Type Natriuretic Peptide 216 H 0-100 pg/mL Total Protein 5.7 L 6.0-8.3 g/dL Albumin 2.2 L 3.5-5.0 g/dL DIAGNOSTICS / RADIOLOGY: [ ] PROBLEM LIST : Medical Problems: Chronic Venous Hypertension with ulcer to bilateral lower legs 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 Thank You for the consult and allowing us to participate in the care of this patient. PARJMIT WRIGHT ACID BATH MIXER Jan 06, 2025 17:24
[2025-01-06] MEDS: BUMETANIDE 1 MG TAB PO SCH (20:28)
[2025-01-07] VITALS (9 sets, daily range): BP systolic 118–138; BP diastolic 68–96; PULSE 82–107; RESP 18–23; TEMP 97.5–98.7; O2SAT 91–96
[2025-01-07 04:55] LABS: IMMATURE GRANULOCYTE ABSOLUTE 0.04 K/uL (0-1); NUCLEATED RED BLOOD CELLS 0.0 % (0.0-0.19); PLATELET COUNT (AUTO) 212 K/uL (130-400); RED BLOOD CELL COUNT(AUTO) 3.51 MIL/uL (4.00-5.50); RED CELL DISTRIBUTION WIDTH 15.1 % (11.0-15.5); WHITE BLOOD COUNT (AUTO) 7.9 K/uL (4.8-10.8)
[2025-01-07 05:17] LABS: ASPARTATE AMINOTRANSFERASE 16.0 U/L (10-37); CREATININE 0.9 mg/dL (0.5-1.0); GLOMERULAR FILTR. RATE CALC 72.0 mL/min (>90); GLUCOSE,RANDOM 104.0 mg/dL (70-105); SODIUM SERUM 140.0 mmol/L (136-145); TOTAL PROTEIN, SERUM 5.9 g/dL (6.0-8.3); UREA NITROGEN, BLOOD 18.0 mg/dL (7-18)
[2025-01-07] MEDS: PoTASSium chloRIDE 20MEQ ER 20 MEQ ERTAB PO ONE (09:42)
--- NOTE | 2025-01-07 10:39 | PN ---
[facility] CARDIOLOGY PROGRESS NOTE Date Patient Seen: Jan 07, 2025 Time of Visit: 10:37 Interval History: [No acute events overnight ,tolerating PT yesterday , endorsing ongoing dyspnea , continue with O2 by NC , continue extremely deconditioned, Physical Examination: GENERAL: [No acute distress.] HEAD: [Normal with no signs of head trauma.] EYES: [PERRLA, EOMI, conjunctiva and sclera normal.] ENT: [Hearing grossly intact, normal oropharynx.] NECK: [Supple without JVD. There is no tenderness, lymphadenopathy, or masses. No thyromegaly. Normal carotid upstrokes without bruits.] LUNGS: [Clear breath sounds bilaterally. No wheezes, or rhonchi.] HEART: [Normal rate and rhythm. Normal S1 and S2 without mumurs, gallop or rub.] VASC: [Peripheral pulses +2 bilaterally.] ABD: [Bowel sounds normal, soft, nontender, no masses, no organomegaly. No audible bruits.] : [Not examined] LYMPH: [No lymphadenopathy noted.] EXT: [1+ bilateral LE pitting edema ] SKIN: [No rashes or lesions noted.] NEURO: [Awake, alert, and oriented x3. No focal sensory or strength deficits noted.] Laboratory: [ ] Hematology Labs: Test 01/07/25 04:45 Range/Units White Blood Count 7.9 4.8-10.8 K/uL Red Blood Count 3.51 L 4.00-5.50 MIL/uL Hemoglobin 9.7 L 12.0-16.0 g/dL Hematocrit 31.2 L 36-48 % Mean Corpuscular Volume 88.9 79-99 fL Mean Corpuscular Hemoglobin 27.6 27.0-33.0 pg Mean Corpuscular Hemoglobin Concent 31.1 L 32.0-36.0 g/dL Red Cell Distribution Width 15.1 11.0-15.5 % Platelet Count 212 130-400 K/uL Mean Platelet Volume 9.5 7.5-10.5 fL Immature Granulocyte % (Auto) 0.5 0-1 % Neutrophils (%) (Auto) 64.2 40.0-77.0 % Lymphocytes (%) (Auto) 21.4 21.0-51.0 % Monocytes (%) (Auto) 13.0 3.0-13.0 % Eosinophils (%) (Auto) 0.6 0.0-8.0 % Basophils (%) (Auto) 0.3 0.0-5.0 % Neutrophils # (Auto) 5.1 1.8-7.7 K/uL Lymphocytes # (Auto) 1.7 1.0-4.8 K/uL Monocytes # (Auto) 1.0 0.1-1.0 K/uL Eosinophils # (Auto) 0.05 0.00-0.70 K/uL Basophils # (Auto) 0.02 0.00-0.20 K/uL Absolute Immature Granulocyte (auto 0.04 0-1 K/uL Nucleated Red Blood Cells 0.0 0.0-0.19 % Chemistry Labs: Test 01/07/25 05:43 01/07/25 04:45 Range/Units Whole Blood Glucose 102 70-110 MG/DL Sodium Level 140 136-145 mmol/L Potassium Level 3.5 3.5-5.1 mmol/L Chloride Level 98 L 101-111 mmol/L Carbon Dioxide Level 36 H 21-32 mmol/L Blood Urea Nitrogen 18 7-18 mg/dL Creatinine 0.9 0.5-1.0 mg/dL Glomerular Filtration Rate Calc 72 >90 mL/min Random Glucose 104 70-105 mg/dL Total Calcium 8.3 L 8.5-10.1 mg/dL Magnesium Level 1.60 L 1.80-2.40 mg/dL Total Bilirubin 0.2 0.2-1.0 mg/dL Aspartate Amino Transf (AST/SGOT) 16 10-37 U/L Alanine Aminotransferase (ALT/SGPT) 21 12-78 U/L Alkaline Phosphatase 70 50-136 U/L Total Protein 5.9 L 6.0-8.3 g/dL Albumin 2.2 L 3.5-5.0 g/dL Diagnostics / Radiology: [Copy/Paste Echos/Imaging Report here] Impression and Plan: [-Acute hypoxemic respiratory failure, currently on NC -Bilateral pulmonary emboli with evidence of RH strain identified on CTA done on 01/02/2025 -LLE DVT identified on venous Doppler done on 01/02/2025 -Elevated troponin (type II OK) -Sinus tachycardia -Electrolyte derangement -Chronic venous insufficiency with venous stasis ulcers -HTN -HLP -DM2 -RA -COPD, on intermittent oxygen therapy -PH -HFpEF (LVEF: 60-65% by echo done 12/10/2024) s/p CardioMEMS insertion -Chronic back pain with compression fractures involving T12, L1, and L2 -Morbid obesity Plan: 1. Bilateral pulmonary emboli with evidence of RH strain identified on CTA done on 01/02/2025 -patient currently denies any chest pain, palpitations, dyspnea or any other anginal equivalents. -no telemetry events overnight, currently with a heart rate of 99 bpm, requiring O2 by nasal cannula at 4 L/min -Cardiac enzymes-HS troponin I: 235>510>1267 -2D echocardiogram done on 01/02/2025 (preliminary) identified evidence of right heart strain. - She is status post PE thrombectomy 01/02/2025.With removal of significant clot burden -Continue with Eliquis 10 mg every 12 hrs x 7 day and the follow with Eliquis 5 mg every 12 hrs after that -Continue [id number] mg daily -Tolerated PT well with no significant desaturation , continues with supplemental O2 by N/C -Continue PT- OT Thank you for this consult , cardiology will continue to follow along Manpreet Mac MD ] ATTESTATION BY PHYSICIAN I have seen and examined the patient, reviewed the above documentation, participated in medical decision making, made necessary modifications, and agree with the treatment plan as documented by my mid-level provider above. MD DORETHA Alfredo JAMES R MD Jan 07, 2025 10:39
--- NOTE | 2025-01-07 13:43 | PN ---
[facility] PROGRESS NOTE Date of Service: Jan 07, 2025 Time of Service: 13:[address] Barcenas SUBJECTIVE: 01/04 Patient underwent pulmonary thrombectomy. Complications reported. Patient is resting comfortably in bedside chair. She reports postprocedure she is feeling better. Patient has been transitioned to Eliquis 01/05 patient is resting comfortably in bed. Yesterday the patient has complained of right sided rib pain and and right ankle pain. X-ray of the right ribs was negative for fracture and no pneumothorax. X-ray of the right ankle demonstrated calcaneal spur with inflammation of the surrounding tissue. Patient is undergoing home O2 evaluation, physical therapy evaluation 01/06 patient was seen by nurse practitioner and physician during rounding in room 231 lying in the bed. Nurse practitioner was able to speak to Dr. Manpreet Mac regarding the diuresis. We will discontinue Lasix IV and we will place patient on Bumex 1 mg p.o. b.i.d. starting today. We will monitor patient's blood pressure in the meantime. If tomorrow BP we will be stable we will add spironolactone 25 mg daily. Patient is also complaining of some cough. Robitussin we will be ordered. As per case management patient is refusing SNF. Patient would like to return home with her home health. 6 minute walk prior discharge was ordered. We will continue to monitor patient in the meantime. A.m. labs 01/07 patient was seen by DIVE SUPERVISOR and physician. Patient's blood pressure has been holding up nicely most recent BP is 138/70 and the previous one was 118/82 at 7:50 a.m.. As per student development specialist request from day before we will add spironolactone 25 mg daily. Of the blood pressure will still hold up nicely patient to be discharged tomorrow. Patient already has an oxygen tank at home. Potassium magnesium to be replaced per protocol. Continue Eliquis 10 mg every 12 hours for total seven days and then follow with Eliquis 5 mg q.12 hours after that. Continue Aldactone 25 mg daily as per Cardiology. As per wound recommendation wound care to the right and left lower leg cleanse with normal saline, pat dry, apply Adaptic/Vaseline gauze to wound, cover with 4 x 4 gauze soaked with the Dakin's call with a gas, abdominal pad, wrap with Kerlix CK with tape change b.i.d. and PRN. He wounds clean and dry. Offloading repositioning q 2 hours. As per case management discharge planning is home with the [facility]. We will continue to monitor patient's blood pressure in the meantime. Anticipated discharge within 24 hours. A.m. labs REVIEW OF SYSTEMS CONSTITUTIONAL: Denies fevers, chills, or night sweats. No unintentional weight loss reported. NEUROLOGICAL: Denies headache, amaurosis fugax, motor weakness, sensory defici t, vertigo/spinning sensation, gait abnormalities, or tremors. ENT: No hearing loss, otalgia, otorrhea, rhinitis, rhinorrhea, hoarseness, or sore throat. CARDIOVASCULAR: Denies any chest pain, PULMONARY: Positive for shortness of breaths. Complains of cough GASTROINTESTINAL: Denies any type of dysphagia to either liquids or solids. Denies nausea, vomiting, pyrosis, early satiety, abdominal pain, diarrhea, constipation, or changes in stool consistency or caliber. Denies coffee-ground emesis, hematemesis, hematochezia, or melanotic stools. GENITOURINARY: Denies frequency, urgency, nocturia, hematuria or incontinence (Storage/Irritative symptoms.) Low urinary stream, straining to void, urinary intermittency or hesitancy, splitting of the voiding stream, terminal dribbling. ENDOCRINOLOGIC: Denies polyuria, polydipsia, polyphagia or heat/cold intolerances. HEMATOLOGIC: Denies thrombophilia/previous clots, or coagulopathy/bleeding disorders. ONCOLOGIC: Denies personal history of malignancy. DERMATOLOGIC: Denies rashes or pruritus. PSYCHIATRIC: Denies any suicidal or homicidal ideation. Denies hallucinations. PHYSICAL EXAM GENERAL APPEARANCE: The patient is awake, alert, and oriented, in no acute cardiopulmonary distress. Patient is unable to lie flat. She prefers to be in a seated position NEUROLOGICAL: Cranial nerves II-XII grossly intact. Motor is 5/5 in bilateral upper and lower extremities proximal to distal. No sensory deficits. HEENT: Face is symmetric. Pupils are equal and reactive. Extraocular movements are intact. NECK: Supple. No JVD. No thyromegaly. No submental, submandibular, pre- /postauricular, occipital or supraclavicular lymphadenopathy. CHEST: Normal chest expansion. No Telemetry. LUNGS: Absence of any rales, rhonchi or any wheezing. CARDIOVASCULAR: Regular. S1 and S2 normal. No appreciable rubs, murmurs or gallops. ABDOMEN: Soft, nontender, and nondistended. There is no rebound, voluntary guarding, or rigidity. : Deferred. No Schuler. EXTREMITIES: Erythema in the lower extremity bilaterally with pitting edema. She has a wound noted in the left lower extremity. Currently has a dressing present. SKIN: No skin breakdown. Vital Signs (last 8hr) Date Time Temp Pulse Resp B/P (MAP) Pulse Ox O2 Delivery O2 Flow Rate FiO2 01/07/25 11:32 98.1 98 18 138/70 99 Nasal Cannula 2.0 01/07/25 07:50 97.9 107 18 118/82 100 Nasal Cannula 2.0 01/07/25 06:46 102 20 N/Cannula Low lpm 2.0 28 LABS: Laboratory: Test 01/07/25 11:14 01/07/25 04:45 Range/Units Whole Blood Glucose 116 H 70-110 MG/DL White Blood Count 7.9 4.8-10.8 K/uL Red Blood Count 3.51 L 4.00-5.50 MIL/uL Hemoglobin 9.7 L 12.0-16.0 g/dL Hematocrit 31.2 L 36-48 % Mean Corpuscular Volume 88.9 79-99 fL Mean Corpuscular Hemoglobin 27.6 27.0-33.0 pg Mean Corpuscular Hemoglobin Concent 31.1 L 32.0-36.0 g/dL Red Cell Distribution Width 15.1 11.0-15.5 % Platelet Count 212 130-400 K/uL Mean Platelet Volume 9.5 7.5-10.5 fL Immature Granulocyte % (Auto) 0.5 0-1 % Neutrophils (%) (Auto) 64.2 40.0-77.0 % Lymphocytes (%) (Auto) 21.4 21.0-51.0 % Monocytes (%) (Auto) 13.0 3.0-13.0 % Eosinophils (%) (Auto) 0.6 0.0-8.0 % Basophils (%) (Auto) 0.3 0.0-5.0 % Neutrophils # (Auto) 5.1 1.8-7.7 K/uL Lymphocytes # (Auto) 1.7 1.0-4.8 K/uL Monocytes # (Auto) 1.0 0.1-1.0 K/uL Eosinophils # (Auto) 0.05 0.00-0.70 K/uL Basophils # (Auto) 0.02 0.00-0.20 K/uL Absolute Immature Granulocyte (auto 0.04 0-1 K/uL Nucleated Red Blood Cells 0.0 0.0-0.19 % Sodium Level 140 136-145 mmol/L Potassium Level 3.5 3.5-5.1 mmol/L Chloride Level 98 L 101-111 mmol/L Carbon Dioxide Level 36 H 21-32 mmol/L Blood Urea Nitrogen 18 7-18 mg/dL Creatinine 0.9 0.5-1.0 mg/dL Glomerular Filtration Rate Calc 72 >90 mL/min Random Glucose 104 70-105 mg/dL Total Calcium 8.3 L 8.5-10.1 mg/dL Magnesium Level 1.60 L 1.80-2.40 mg/dL Total Bilirubin 0.2 0.2-1.0 mg/dL Aspartate Amino Transf (AST/SGOT) 16 10-37 U/L Alanine Aminotransferase (ALT/SGPT) 21 12-78 U/L Alkaline Phosphatase 70 50-136 U/L Total Protein 5.9 L 6.0-8.3 g/dL Albumin 2.2 L 3.5-5.0 g/dL Current Medications Medications (Trade) Dose Ordered Sig/Ashanti Route PRN Reason Start Time Stop Time Status Last Admin Dose Admin Acetaminophen (TYLenol 500MG TAB) 500 mg Q6H PRN PO MILD PAIN (1-3) 01/02/25 14:30 02/01/25 14:29 Acetaminophen/ Codeine Phosphate (TYLenol-coDEINE TAB) 1 tab Q6H PRN PO MODERATE PAIN (4-6) 01/03/25 07:00 01/03/25 23:15 DC Apixaban (EliquIS) 5 mg BID PO 01/11/25 09:00 02/10/25 08:59 Apixaban (EliquIS) 10 mg BID PO 01/03/25 21:00 01/10/25 23:00 01/07/25 08:26 10 MG Atorvastatin Calcium (LIPItor 10MG) 10 mg DAILY PO 10/11/25 09:00 01/05/25 08:34 DC 01/04/25 10:53 10 MG Atorvastatin Calcium (LIPItor 10MG) 10 mg HS PO 01/05/25 21:00 02/02/25 08:59 01/06/25 20:28 10 MG Baclofen (Baclofen) 5 mg TID PRN PO Back Pain 01/05/25 09:00 02/02/25 06:59 01/07/25 08:25 5 MG Baclofen (Baclofen) 5 mg TIDP PRN PO Back Pain 01/03/25 07:00 01/05/25 08:35 DC 01/04/25 20:08 5 MG Bumetanide (Bumex 1mg Tab) 1 mg BID PO 01/06/25 21:00 02/05/25 20:59 01/07/25 08:25 1 MG Ceftriaxone Sodium (ROCEphine 1G INJ) 1 gm Q24H IVPB 01/02/25 15:00 01/02/25 15:19 DC Ceftriaxone Sodium (Rocephin 2gm Inj) 2 gm Q24H IVPB 01/03/25 16:00 01/13/25 15:59 01/06/25 15:40 2 GM Dextrose (D50w) 50 ml AD PRN IV HYPOGLYCEMIA PROTOCOL 01/02/25 19:30 02/01/25 19:29 Famotidine (Pepcid 20mg Vial) 20 mg Q24H IV 01/02/25 21:00 01/04/25 10:03 DC 01/03/25 20:29 20 MG Furosemide (LASix 20MG TAB) 20 mg DAILY PO 01/06/25 09:00 01/06/25 16:32 DC 01/06/25 07:59 20 MG Furosemide (LASix 20MG VIAL) 20 mg Q8H IV 01/04/25 19:30 01/05/25 09:04 DC 01/05/25 03:03 20 MG Glucagon (Glucagon 1mg Kit) 1 mg AD PRN IM HYPOGLYCEMIA PROTOCOL 01/02/25 19:30 02/01/25 19:29 Guaifenesin/ Dextromethorphan (RobiTUSSin DM 200/20MG 10ML) 5 ml Q4H PRN PO COUGH 01/06/25 16:30 02/05/25 16:29 01/06/25 16:51 5 ML Heparin Sodium (Porcine) (HEParin 5,000 UNIT VIAL) *calculation based on ACTUAL B... AD PRN IV HEPARIN PROTOCOL 01/02/25 15:00 01/03/25 21:00 DC Heparin Sodium/ Dextrose 250 ml @ 0 mls/hr Q6H IV 01/02/25 15:00 01/03/25 21:00 DC 01/03/25 09:29 0 MLS/HR Hydromorphone HCl (DiLAUDid 0.5MG INJ) 0.2 mg Q4H PRN IVP SEVERE PAIN (7-10) 01/03/25 23:30 01/08/25 23:29 01/07/25 08:54 0.2 MG Insulin Human Regular (humuLIN R 100 UNIT/ML 3ML) INSULIN SLIDING SCAL... ACHS SQ 01/02/25 21:00 02/01/25 20:59 01/06/25 13:03 3 UNIT Magnesium Sulfate 50 ml @ 0 mls/hr PROTOCOL IV 01/07/25 09:30 02/06/25 09:29 Magnesium Sulfate 50 ml @ 0 mls/hr PROTOCOL PRN IV hypomagnesemia 01/02/25 14:30 01/07/25 09:24 DC Metoprolol Tartrate (loprESSOR) 25 mg BID PO 01/03/25 14:00 01/04/25 07:17 DC 01/03/25 20:29 25 MG Pantoprazole Sodium (PROTonix 40MG INJ) 40 mg BID IVP 01/04/25 21:00 02/03/25 20:59 01/07/25 09:35 40 MG Pantoprazole Sodium (PROTonix 40MG TAB) 40 mg DAILY PO 01/03/25 09:00 01/04/25 10:02 DC 01/03/25 09:14 40 MG Potassium Chloride 100 ml @ 100 mls/hr AD PRN IV POTASSIUM PROTOCOL 01/02/25 14:30 02/01/25 14:29 Potassium Chloride (K-Dur/Klor-Con 20meq) 20 meq AD PRN PO POTASSIUM PROTOCOL 01/02/25 14:30 02/01/25 14:29 01/07/25 06:40 20 MEQ Potassium Chloride (KCl 10% Elixir 20meq/15ml) 20 meq AD PRN PO POTASSIUM PROTOCOL 01/02/25 14:30 02/01/25 14:29 Pramipexole Dihydrochloride (miraPEX 0.25MG TAB) 0.5 mg HS PO 01/03/25 21:00 02/02/25 20:59 01/06/25 20:28 0.5 MG Prednisone (deltaSONE/ oraSONE 20MG TAB) 20 mg DAILY PO 01/05/25 09:30 01/10/25 09:29 01/07/25 08:26 20 MG Sodium Hypochlorite (Dakin'S 0.25% Half Strength) 1 APPL BID TP 01/05/25 21:00 02/04/25 20:59 01/07/25 08:44 1 APPL Sodium Chloride 1,000 ml @ 150 mls/hr Q6H40M IV 01/02/25 19:30 01/02/25 23:29 DC 01/02/25 19:48 150 MLS/HR Spironolactone (Aldactone 25mg) 25 mg DAILY PO 01/07/25 10:00 02/06/25 09:59 Terbinafine HCl (Lamisil) 250 mg DAILY PO 01/03/25 09:00 02/02/25 08:59 01/07/25 08:25 250 MG Tramadol HCl (UltRAM) 50 mg Q6H PRN PO MODERATE PAIN (4-6) 01/03/25 23:30 01/08/25 23:29 01/06/25 08:00 50 MG DIAGNOSTICS / RADIOLOGY: [ ] ASSESSMENT: Bilateral PE POA Acute on chronic hypoxic respiratory failure secondary to PE Troponin elevation likely in setting of PE Lower back pain MRI showing chronic compression fracture of T12 vertebrae 12/16/2024 Acute diastolic congestive heart failure Bilateral lower extremity edema with chronic wound History of venous stasis History of Pulmonary hypertension History of CardioMEMS device loose Obesity Obstructive sleep apnea Hypertension Hyperlipidemia CKD stage 3 Right ankle calcaneal spur, POA PLAN: Patient's blood pressure has been holding up nicely most recent BP is 138/70 and the previous one was 118/82 at 7:50 a.m.. As per student development specialist request from day before we will add spironolactone 25 mg daily. Of the blood pressure will still hold up nicely patient to be discharged tomorrow. Patient already has an oxygen tank at home. Potassium magnesium to be replaced per protocol. Continue Eliquis 10 mg every 12 hours for total seven days and then follow with Eliquis 5 mg q.12 hours after that. Continue Aldactone 25 mg daily as per Cardiology. As per wound recommendation wound care to the right and left lower leg cleanse with normal saline, pat dry, apply Adaptic/Vaseline gauze to wound, cover with 4 x 4 gauze soaked with the Dakin's call with a gas, abdominal pad, wrap with Kerlix CK with tape change b.i.d. and PRN. He wounds clean and dry. Offloading repositioning q 2 hours. As per case management discharge planning is home with the [facility]. We will continue to monitor patient's blood pressure in the meantime. Anticipated discharge within 24 hours. A.m. labs Continue pramipexole O2 nasal cannula as needed Follow up With Pulmonary/critical Care Medicine Heart healthy diet GI prophylaxis with pantoprazole No need for IV fluids Replete electrolytes as necessary DVT prophylaxis with heparin Trend a.m. CBC Full code Case was discussed with patient's nurse at bedside Attention time greater than 30 minutes ATTESTATION BY PHYSICIAN I have seen and examined the patient. I reviewed the documentation, medical decision making, and treatment plan as noted by the mid-level provider above. I agree with the findings and plan of care. Bianca Barcenas MD, KATARZYNA B BARREL ENDSHAKE ADJUSTER Jan 07, 2025 13:43
[2025-01-07] MEDS: SPIRONOLACTONE 25 MG TAB PO SCH (13:45)
[2025-01-08] VITALS (10 sets, daily range): BP systolic 125–142; BP diastolic 66–91; PULSE 62–111; RESP 18–22; TEMP 97.8–98.8; O2SAT 92–97
[2025-01-08 03:50] LABS: IMMATURE GRANULOCYTE ABSOLUTE 0.08 K/uL (0-1); NUCLEATED RED BLOOD CELLS 0.0 % (0.0-0.19); PLATELET COUNT (AUTO) 228 K/uL (130-400); RED BLOOD CELL COUNT(AUTO) 3.72 MIL/uL (4.00-5.50); RED CELL DISTRIBUTION WIDTH 15.1 % (11.0-15.5); WHITE BLOOD COUNT (AUTO) 7.5 K/uL (4.8-10.8)
[2025-01-08 04:03] LABS: ASPARTATE AMINOTRANSFERASE 14.0 U/L (10-37); CREATININE 1.0 mg/dL (0.5-1.0); GLOMERULAR FILTR. RATE CALC 63.0 mL/min (>90); GLUCOSE,RANDOM 103.0 mg/dL (70-105); SODIUM SERUM 142.0 mmol/L (136-145); TOTAL PROTEIN, SERUM 6.1 g/dL (6.0-8.3); UREA NITROGEN, BLOOD 17.0 mg/dL (7-18)
[2025-01-08] MEDS: MAGNESIUM 2GM PREMIX 50ML 50 ML IV SCH (04:56)
--- NOTE | 2025-01-08 05:28 | NUR ---
lab co2 of 40, reported to Gregoria hawk autobody technician. Patient is [id number], on cpap with oxygen 2 liters per minute via nc. As per autobody technician, no new orders.
[2025-01-08] MEDS ORDERED: ATOR10 PO (11:02)
[2025-01-08] MEDS ORDERED: BACL10TA PO (11:02)
[2025-01-08] MEDS ORDERED: BUME1TAB6 PO (11:02)
[2025-01-08] MEDS ORDERED: SPIR25TA6 PO (11:02)
[2025-01-08] MEDS ORDERED: APIX5TAB PO (11:02)
--- NOTE | 2025-01-08 13:47 | PN ---
[facility] PROGRESS NOTE Date of Service: Jan 08, 2025 Time of Service: 13:[address] Wright SUBJECTIVE: 01/04 Patient underwent pulmonary thrombectomy. Complications reported. Patient is resting comfortably in bedside chair. She reports postprocedure she is feeling better. Patient has been transitioned to Eliquis 01/05 patient is resting comfortably in bed. Yesterday the patient has complained of right sided rib pain and and right ankle pain. X-ray of the right ribs was negative for fracture and no pneumothorax. X-ray of the right ankle demonstrated calcaneal spur with inflammation of the surrounding tissue. Patient is undergoing home O2 evaluation, physical therapy evaluation 01/06 patient was seen by nurse practitioner and physician during rounding in room 231 lying in the bed. Nurse practitioner was able to speak to Dr. Manpreet Mac regarding the diuresis. We will discontinue Lasix IV and we will place patient on Bumex 1 mg p.o. b.i.d. starting today. We will monitor patient's blood pressure in the meantime. If tomorrow BP we will be stable we will add spironolactone 25 mg daily. Patient is also complaining of some cough. Robitussin we will be ordered. As per case management patient is refusing SNF. Patient would like to return home with her home health. 6 minute walk prior discharge was ordered. We will continue to monitor patient in the meantime. A.m. labs 01/07 patient was seen by PRODUCT FINISHER and physician. Patient's blood pressure has been holding up nicely most recent BP is 138/70 and the previous one was 118/82 at 7:50 a.m.. As per cook's assistant request from day before we will add spironolactone 25 mg daily. Of the blood pressure will still hold up nicely patient to be discharged tomorrow. Patient already has an oxygen tank at home. Potassium magnesium to be replaced per protocol. Continue Eliquis 10 mg every 12 hours for total seven days and then follow with Eliquis 5 mg q.12 hours after that. Continue Aldactone 25 mg daily as per Cardiology. As per wound recommendation wound care to the right and left lower leg cleanse with normal saline, pat dry, apply Adaptic/Vaseline gauze to wound, cover with 4 x 4 gauze soaked with the Dakin's call with a gas, abdominal pad, wrap with Kerlix CK with tape change b.i.d. and PRN. He wounds clean and dry. Offloading repositioning q 2 hours. As per case management discharge planning is home with the [facility]. We will continue to monitor patient's blood pressure in the meantime. Anticipated discharge within 24 hours. A.m. labs 01/08 patient was seen by nurse practitioner and physician during rounding in room 231. Patient was cleared by cook's assistant to be discharged home on Bumex 1 mg b.i.d. and spironolactone 20 five daily. Lasix was discontinued. Patient feels 6 minute walk but already has oxygen at home. We are still pending final wound culture. Once dose we will come back patient will be discharged home with formerly [facility] and appropriate antibiotics. Patient to continue Eliquis 10 mg b.i.d. for total of seven days and then continue with 5 mg b.i.d. for at least 10 days. As per mastic floor layer continue prednisolone 20 mg daily. We will continue to monitor patient in the meantime. Labs. REVIEW OF SYSTEMS CONSTITUTIONAL: Denies fevers, chills, or night sweats. No unintentional weight loss reported. NEUROLOGICAL: Denies headache, amaurosis fugax, motor weakness, sensory deficit, vertigo/spinning sensation, gait abnormalities, or tremors. ENT: No hearing loss, otalgia, otorrhea, rhinitis, rhinorrhea, hoarseness, or sore throat. CARDIOVASCULAR: Denies any chest pain, PULMONARY: Positive for shortness of breaths. Complains of cough GASTROINTESTINAL: Denies any type of dysphagia to either liquids or solids. Denies nausea, vomiting, pyrosis, early satiety, abdominal pain, diarrhea, constipation, or changes in stool consistency or caliber. Denies coffee-ground emesis, hematemesis, hematochezia, or melanotic stools. GENITOURINARY: Denies frequency, urgency, nocturia, hematuria or incontinence (Storage/Irritative symptoms.) Low urinary stream, straining to void, urinary intermittency or hesitancy, splitting of the voiding stream, terminal dribbling. ENDOCRINOLOGIC: Denies polyuria, polydipsia, polyphagia or heat/cold intolerances. HEMATOLOGIC: Denies thrombophilia/previous clots, or coagulopathy/bleeding disorders. ONCOLOGIC: Denies personal history of malignancy. DERMATOLOGIC: Denies rashes or pruritus. PSYCHIATRIC: Denies any suicidal or homicidal ideation. Denies hallucinations. PHYSICAL EXAM GENERAL APPEARANCE: The patient is awake, alert, and oriented, in no acute cardiopulmonary distress. Patient is unable to lie flat. She prefers to be in a seated position NEUROLOGICAL: Cranial nerves II-XII grossly intact. Motor is 5/5 in bilateral upper and lower extremities proximal to distal. No sensory deficits. HEENT: Face is symmetric. Pupils are equal and reactive. Extraocular movements are intact. NECK: Supple. No JVD. No thyromegaly. No submental, submandibular, pre- /postauricular, occipital or supraclavicular lymphadenopathy. CHEST: Normal chest expansion. No Telemetry. LUNGS: Absence of any rales, rhonchi or any wheezing. CARDIOVASCULAR: Regular. S1 and S2 normal. No appreciable rubs, murmurs or gallops. ABDOMEN: Soft, nontender, and nondistended. There is no rebound, voluntary guarding, or rigidity. : Deferred. No Schuler. EXTREMITIES: Erythema in the lower extremity bilaterally with pitting edema. She has a wound noted in the left lower extremity. Currently has a dressing present. SKIN: No skin breakdown. Vital Signs (last 8hr) Date Time Temp Pulse Resp B/P (MAP) Pulse Ox O2 Delivery O2 Flow Rate FiO2 01/08/25 12:01 97.9 104 20 136/91 97 Nasal Cannula 2.0 01/08/25 09:45 96 Nasal Cannula* 2 28 01/08/25 07:39 97.9 94 18 142/66 93 Nasal Cannula 2.0 01/08/25 07:09 94 20 LABS: Laboratory: Test 01/08/25 11:12 01/08/25 05:47 01/08/25 03:27 Range/Units Whole Blood Glucose 170 #H 70-110 MG/DL Bedside Glucose Comment Notified Nurse White Blood Count 7.5 4.8-10.8 K/uL Red Blood Count 3.72 L 4.00-5.50 MIL/uL Hemoglobin 10.1 L 12.0-16.0 g/dL Hematocrit 33.6 L 36-48 % Mean Corpuscular Volume 90.3 79-99 fL Mean Corpuscular Hemoglobin 27.2 27.0-33.0 pg Mean Corpuscular Hemoglobin Concent 30.1 L 32.0-36.0 g/dL Red Cell Distribution Width 15.1 11.0-15.5 % Platelet Count 228 130-400 K/uL Mean Platelet Volume 9.3 7.5-10.5 fL Immature Granulocyte % (Auto) 1.1 H 0-1 % Neutrophils (%) (Auto) 59.6 40.0-77.0 % Lymphocytes (%) (Auto) 25.6 21.0-51.0 % Monocytes (%) (Auto) 13.2 H 3.0-13.0 % Eosinophils (%) (Auto) 0.4 0.0-8.0 % Basophils (%) (Auto) 0.1 0.0-5.0 % Neutrophils # (Auto) 4.4 1.8-7.7 K/uL Lymphocytes # (Auto) 1.9 1.0-4.8 K/uL Monocytes # (Auto) 1.0 0.1-1.0 K/uL Eosinophils # (Auto) 0.03 0.00-0.70 K/uL Basophils # (Auto) 0.01 0.00-0.20 K/uL Absolute Immature Granulocyte (auto 0.08 0-1 K/uL Nucleated Red Blood Cells 0.0 0.0-0.19 % Sodium Level 142 136-145 mmol/L Potassium Level 3.8 3.5-5.1 mmol/L Chloride Level 98 L 101-111 mmol/L Carbon Dioxide Level 40 *H 21-32 mmol/L Blood Urea Nitrogen 17 7-18 mg/dL Creatinine 1.0 0.5-1.0 mg/dL Glomerular Filtration Rate Calc 63 >90 mL/min Random Glucose 103 70-105 mg/dL Total Calcium 8.2 L 8.5-10.1 mg/dL Magnesium Level 1.50 L 1.80-2.40 mg/dL Total Bilirubin 0.3 # 0.2-1.0 mg/dL Aspartate Amino Transf (AST/SGOT) 14 10-37 U/L Alanine Aminotransferase (ALT/SGPT) 22 12-78 U/L Alkaline Phosphatase 73 50-136 U/L B-Type Natriuretic Peptide 159 H 0-100 pg/mL Total Protein 6.1 6.0-8.3 g/dL Albumin 2.3 L 3.5-5.0 g/dL Current Medications Medications (Trade) Dose Ordered Sig/Ashanti Route PRN Reason Start Time Stop Time Status Last Admin Dose Admin Acetaminophen (TYLenol 500MG TAB) 500 mg Q6H PRN PO MILD PAIN (1-3) 01/02/25 14:30 02/01/25 14:29 Acetaminophen/ Codeine Phosphate (TYLenol-coDEINE TAB) 1 tab Q6H PRN PO MODERATE PAIN (4-6) 01/03/25 07:00 01/03/25 23:15 DC Apixaban (EliquIS) 5 mg BID PO 01/11/25 09:00 02/10/25 08:59 Apixaban (EliquIS) 10 mg BID PO 01/03/25 21:00 01/10/25 23:00 01/08/25 09:46 10 MG Atorvastatin Calcium (LIPItor 10MG) 10 mg DAILY PO 01/03/25 09:00 01/05/25 08:34 DC 01/04/25 10:53 10 MG Atorvastatin Calcium (LIPItor 10MG) 10 mg HS PO 01/05/25 21:00 02/02/25 08:59 01/07/25 20:50 10 MG Baclofen (Baclofen) 5 mg TID PRN PO Back Pain 01/05/25 09:00 02/02/25 06:59 01/08/25 00:12 5 MG Baclofen (Baclofen) 5 mg TIDP PRN PO Back Pain 01/03/25 07:00 01/05/25 08:35 DC 01/04/25 20:08 5 MG Bumetanide (Bumex 1mg Tab) 1 mg BID PO 01/06/25 21:00 02/05/25 20:59 01/08/25 09:46 1 MG Ceftriaxone Sodium (ROCEphine 1G INJ) 1 gm Q24H IVPB 01/02/25 15:00 01/02/25 15:19 DC Ceftriaxone Sodium (Rocephin 2gm Inj) 2 gm Q24H IVPB 01/03/25 16:00 01/13/25 15:59 01/07/25 15:27 2 GM Dextrose (D50w) 50 ml AD PRN IV HYPOGLYCEMIA PROTOCOL 01/02/25 19:30 02/01/25 19:29 Famotidine (Pepcid 20mg Vial) 20 mg Q24H IV 01/02/25 21:00 01/04/25 10:03 DC 01/03/25 20:29 20 MG Furosemide (LASix 20MG TAB) 20 mg DAILY PO 01/06/25 09:00 01/06/25 16:32 DC 01/06/25 07:59 20 MG Furosemide (LASix 20MG VIAL) 20 mg Q8H IV 01/04/25 19:30 01/05/25 09:04 DC 01/05/25 03:03 20 MG Glucagon (Glucagon 1mg Kit) 1 mg AD PRN IM HYPOGLYCEMIA PROTOCOL 01/02/25 19:30 02/01/25 19:29 Guaifenesin/ Dextromethorphan (RobiTUSSin DM 200/20MG 10ML) 5 ml Q4H PRN PO COUGH 01/06/25 16:30 02/05/25 16:29 01/06/25 16:51 5 ML Heparin Sodium (Porcine) (HEParin 5,000 UNIT VIAL) *calculation based on ACTUAL B... AD PRN IV HEPARIN PROTOCOL 01/02/25 15:00 01/03/25 21:00 DC Heparin Sodium/ Dextrose 250 ml @ 0 mls/hr Q6H IV 01/02/25 15:00 01/03/25 21:00 DC 01/03/25 09:29 0 MLS/HR Hydromorphone HCl (DiLAUDid 0.5MG INJ) 0.2 mg Q4H PRN IVP SEVERE PAIN (7-10) 01/03/25 23:30 01/08/25 23:29 01/08/25 11:20 0.2 MG Insulin Human Regular (humuLIN R 100 UNIT/ML 3ML) INSULIN SLIDING SCAL... ACHS SQ 01/02/25 21:00 02/01/25 20:59 01/07/25 21:02 2 UNIT Magnesium Sulfate 50 ml @ 0 mls/hr PROTOCOL IV 01/07/25 09:30 02/06/25 09:29 01/08/25 04:56 25 MLS/HR Magnesium Sulfate 50 ml @ 0 mls/hr PROTOCOL PRN IV hypomagnesemia 01/02/25 14:30 01/07/25 09:24 DC Metoprolol Tartrate (loprESSOR) 25 mg BID PO 01/03/25 14:00 01/04/25 07:17 DC 01/03/25 20:29 25 MG Pantoprazole Sodium (PROTonix 40MG INJ) 40 mg BID IVP 01/04/25 21:00 02/03/25 20:59 01/08/25 09:47 40 MG Pantoprazole Sodium (PROTonix 40MG TAB) 40 mg DAILY PO 01/03/25 09:00 01/04/25 10:02 DC 01/03/25 09:14 40 MG Potassium Chloride 100 ml @ 100 mls/hr AD PRN IV POTASSIUM PROTOCOL 01/02/25 14:30 02/01/25 14:29 Potassium Chloride (K-Dur/Klor-Con 20meq) 20 meq AD PRN PO POTASSIUM PROTOCOL 01/02/25 14:30 02/01/25 14:29 01/08/25 09:52 20 MEQ Potassium Chloride (KCl 10% Elixir 20meq/15ml) 20 meq AD PRN PO POTASSIUM PROTOCOL 01/02/25 14:30 02/01/25 14:29 Pramipexole Dihydrochloride (miraPEX 0.25MG TAB) 0.5 mg HS PO 01/03/25 21:00 02/02/25 20:59 01/07/25 20:50 0.5 MG Prednisone (deltaSONE/ oraSONE 20MG TAB) 20 mg DAILY PO 01/05/25 09:30 01/10/25 09:29 01/08/25 09:46 20 MG Sodium Hypochlorite (Dakin'S 0.25% Half Strength) 1 APPL BID TP 01/05/25 21:00 02/04/25 20:59 01/08/25 09:48 1 APPL Sodium Chloride 1,000 ml @ 150 mls/hr Q6H40M IV 01/02/25 19:30 01/02/25 23:29 DC 01/02/25 19:48 150 MLS/HR Spironolactone (Aldactone 25mg) 25 mg DAILY PO 01/07/25 10:00 02/06/25 09:59 01/08/25 09:46 25 MG Terbinafine HCl (Lamisil) 250 mg DAILY PO 01/03/25 09:00 02/02/25 08:59 01/08/25 09:46 250 MG Tramadol HCl (UltRAM) 50 mg Q6H PRN PO MODERATE PAIN (4-6) 01/03/25 23:30 01/08/25 23:29 01/08/25 09:47 50 MG DIAGNOSTICS / RADIOLOGY: [ ] ASSESSMENT: Bilateral PE POA Acute on chronic hypoxic respiratory failure secondary to PE Troponin elevation likely in setting of PE Lower back pain MRI showing chronic compression fracture of T12 vertebrae 12/16/2024 Acute diastolic congestive heart failure Bilateral lower extremity edema with chronic wound History of venous stasis History of Pulmonary hypertension History of CardioMEMS device loose Obesity Obstructive sleep apnea Hypertension Hyperlipidemia CKD stage 3 Right ankle calcaneal spur, POA PLAN: Patient's blood pressure has been holding up nicely most recent BP is 138/70 and the previous one was 118/82 at 7:50 a.m.. As per cook's assistant request from day before we will add spironolactone 25 mg daily. Of the blood pressure will still hold up nicely patient to be discharged tomorrow. Patient already has an oxygen tank at home. Potassium magnesium to be replaced per protocol. Continue Eliquis 10 mg every 12 hours for total seven days and then follow with Eliquis 5 mg q.12 hours after that. Continue Aldactone 25 mg daily as per Cardiology. As per wound recommendation wound care to the right and left lower leg cleanse with normal saline, pat dry, apply Adaptic/Vaseline gauze to wound, cover with 4 x 4 gauze soaked with the Dakin's call with a gas, abdominal pad, wrap with Kerlix CK with tape change b.i.d. and PRN. He wounds clean and dry. Offloading repositioning q 2 hours. As per case management discharge planning is home with the [facility]. We will continue to monitor patient's blood pressure in the meantime. Anticipated discharge within 24 hours. A.m. labs Continue pramipexole O2 nasal cannula as needed Follow up With Pulmonary/critical Care Medicine Heart healthy diet GI prophylaxis with pantoprazole No need for IV fluids Replete electrolytes as necessary DVT prophylaxis with heparin Trend a.m. CBC Full code Case was discussed with patient's nurse at bedside Attention time greater than 30 minutes ATTESTATION BY PHYSICIAN I have seen and examined the patient. I reviewed the documentation, medical decision making, and treatment plan as noted by the mid-level provider above. I agree with the findings and plan of care. Clay Wright IV, MD, KATARZYNA B [employer] TRUING INSPECTOR Jan 08, 2025 13:47
--- NOTE | 2025-01-08 19:57 | PN ---
[facility] PROGRESS NOTE Date Patient Seen: Jan 08, 2025 Time of Visit: 19:52 Supervising Physician: JOHANNA CARREON MD Primary Care Physician: VINCE HASSAN MD Outpatient Specialists: [ ] Inpatient Consults: AUREA PROBLEM LIST: Acute on chronic hypercarbic hypoxemic respiratory failure Acute bilateral PE present on admission: Unprovoked Status post bilateral embolectomy 01/03/2025 Acute non-STEMI on admission Acute DVT to the left lower extremity Compression fracture of the T12 vertebral body Chronic venous stasis of the lower extremities bilaterally Cellulitis of the lower extremities bilaterally Mild pulmonary hypertension Morbid obesity: BMI 36 Obstructive sleep apnea Hypertension Chronic kidney disease stage 3 INTERVAL HISTORY: Patient is currently sitting on her chair, she remains on 2 L O2 via nasal cannula Afebrile, well hydrated no acute distress. No nausea or vomiting Good appetite, no constipation. Voiding, no urgency or dysuria reported We are still waiting for the results from her wound culture and the plan is for the patient to be discharged on oral antibiotics as per recommendations from Infectious and Disease specialist Currently on Rocephin every 24 hours REVIEW OF SYSTEMS: 12 points review of systems done; all pertinent information addressed. Otherwise, negative. PHYSICAL EXAM: GENERAL: alert, weak, awake oriented x 3, fatigue HEENT: EOMI, Sclera non icteric, moist mucosa NECK: History of thyroid mass, no JVD, trachea midline LUNGS: Decreased breath sounds bilaterally with fine crackles at the bases. No wheezing HEART: Regular rate and rhythm. Normal S1 and S2, without murmurs ABD: Abdomen soft, nontender. Bowel sounds present EXT: Bilateral lower extremity edema consistent with stasis, no cyanosis. NEURO: Alert and oriented to person, follows commands Vital Signs (last 8hr) Date Time Temp Pulse Resp B/P (MAP) Pulse Ox O2 Delivery O2 Flow Rate FiO2 01/08/25 16:00 98.2 111 20 125/76 95 Nasal Cannula 2.0 01/08/25 12:01 97.9 104 20 136/91 97 Nasal Cannula 2.0 LABS: Hematology Labs: Test 01/08/25 03:27 Range/Units White Blood Count 7.5 4.8-10.8 K/uL Red Blood Count 3.72 L 4.00-5.50 MIL/uL Hemoglobin 10.1 L 12.0-16.0 g/dL Hematocrit 33.6 L 36-48 % Mean Corpuscular Volume 90.3 79-99 fL Mean Corpuscular Hemoglobin 27.2 27.0-33.0 pg Mean Corpuscular Hemoglobin Concent 30.1 L 32.0-36.0 g/dL Red Cell Distribution Width 15.1 11.0-15.5 % Platelet Count 228 130-400 K/uL Mean Platelet Volume 9.3 7.5-10.5 fL Immature Granulocyte % (Auto) 1.1 H 0-1 % Neutrophils (%) (Auto) 59.6 40.0-77.0 % Lymphocytes (%) (Auto) 25.6 21.0-51.0 % Monocytes (%) (Auto) 13.2 H 3.0-13.0 % Eosinophils (%) (Auto) 0.4 0.0-8.0 % Basophils (%) (Auto) 0.1 0.0-5.0 % Neutrophils # (Auto) 4.4 1.8-7.7 K/uL Lymphocytes # (Auto) 1.9 1.0-4.8 K/uL Monocytes # (Auto) 1.0 0.1-1.0 K/uL Eosinophils # (Auto) 0.03 0.00-0.70 K/uL Basophils # (Auto) 0.01 0.00-0.20 K/uL Absolute Immature Granulocyte (auto 0.08 0-1 K/uL Nucleated Red Blood Cells 0.0 0.0-0.19 % Chemistry Labs: Test 01/08/25 19:37 01/08/25 05:47 01/08/25 03:27 Range/Units Whole Blood Glucose 242 H 70-110 MG/DL Bedside Glucose Comment Notified Nurse Sodium Level 142 136-145 mmol/L Potassium Level 3.8 3.5-5.1 mmol/L Chloride Level 98 L 101-111 mmol/L Carbon Dioxide Level 40 *H 21-32 mmol/L Blood Urea Nitrogen 17 7-18 mg/dL Creatinine 1.0 0.5-1.0 mg/dL Glomerular Filtration Rate Calc 63 >90 mL/min Random Glucose 103 70-105 mg/dL Total Calcium 8.2 L 8.5-10.1 mg/dL Magnesium Level 1.50 L 1.80-2.40 mg/dL Total Bilirubin 0.3 # 0.2-1.0 mg/dL Aspartate Amino Transf (AST/SGOT) 14 10-37 U/L Alanine Aminotransferase (ALT/SGPT) 22 12-78 U/L Alkaline Phosphatase 73 50-136 U/L B-Type Natriuretic Peptide 159 H 0-100 pg/mL Total Protein 6.1 6.0-8.3 g/dL Albumin 2.3 L 3.5-5.0 g/dL DIAGNOSTICS / RADIOLOGY RESULTS: [ ] PLAN Follow wound culture results Continue with Rocephin We will switch to oral antibiotics once we have the culture and sensitivity results Continue on oxygen Wound care Continue Eliquis NEURO: Minimize central acting medications as possible. Maintain fall precautions, adequate lighting during the day PULMONARY: Supplemental 02 as needed. Maintain aspiration precautions at all times CARDIOVASCULAR: Follow hemodynamics. Vital signs per facility protocol GI & NUTRITION: Continue with nutritional support. Continue stool softeners and laxatives as needed. KIDNEYS & ELECTROLYTES: Strict monitoring of intake, output and overall fluid balance. Avoid nephrotoxic medications to the extent possible. Medications to be dosed according to renal function. Monitor electrolytes and replace as needed ENDOCRINE: Maintain blood glucose between 100-180 at all times. Hypoglycemia protocol in place INFECTIOUS DISEASE: Trend temperature, WBC and procalcitonin level Follow cultures, deescalate antibiotics as soon as possible. Panculture if new onset fever ONCOLOGY/HEMATOLOGY/COAGULATION: Monitor for s/s of bleeding Monitor hemoglobin, coagulation studies as needed SKIN: Pressure ulcer prevention per facility protocol Specialty mattress ORTHO/REHAB: Continue PT/OT Prophylaxis: Continue GI and DVT prophylaxis Code Status: Full Resuscitation Disposition: As per primary I personally scribed for JOHANNA CARREON MD ([email or web address]) on 01/08/25 at 19:57. Electronically submitted by Clay Mercedes ([email or web address]). JOHANNA CARREON MD Jan 08, 2025 19:57
[2025-01-09] VITALS (11 sets, daily range): BP systolic 117–141; BP diastolic 77–88; PULSE 82–110; RESP 16–22; TEMP 97.1–98.3; O2SAT 92–100
--- NOTE | 2025-01-09 01:21 | NUR ---
ANSWERED PATIENT CALL LIGHT. PATIENT STATES IS IN PAIN. PAIN LEVEL OF 9 TO LOWER BACK AND BILATERAL LOWER EXTREMITIES. IS REQUESTING MORE PAIN MEDICINE. UPON CHECKING MEDICATION ORDERS NOTICED THAT DILAUDID ALREADY REACH STOP DATE. CALL PLACED TO HOSPITALIST. SPOKE TO JACE ROUSE NP, STATED DOMI FOR DILAUDID 0.2MG IV X1
[2025-01-09 04:59] LABS: IMMATURE GRANULOCYTE ABSOLUTE 0.12 K/uL (0-1); NUCLEATED RED BLOOD CELLS 0.0 % (0.0-0.19); PLATELET COUNT (AUTO) 264 K/uL (130-400); RED BLOOD CELL COUNT(AUTO) 3.88 MIL/uL (4.00-5.50); RED CELL DISTRIBUTION WIDTH 15.2 % (11.0-15.5); WHITE BLOOD COUNT (AUTO) 8.7 K/uL (4.8-10.8)
[2025-01-09 05:17] LABS: ASPARTATE AMINOTRANSFERASE 16.0 U/L (10-37); CREATININE 0.9 mg/dL (0.5-1.0); GLOMERULAR FILTR. RATE CALC 72.0 mL/min (>90); GLUCOSE,RANDOM 105.0 mg/dL (70-105); SODIUM SERUM 142.0 mmol/L (136-145); TOTAL PROTEIN, SERUM 6.2 g/dL (6.0-8.3); UREA NITROGEN, BLOOD 16.0 mg/dL (7-18)
[2025-01-09] MEDS: PoTASSium chloRIDE 20MEQ ER 20 MEQ ERTAB PO ONE (07:34)
[2025-01-09] MEDS: MAGNESIUM 2GM PREMIX 50ML 50 ML IV SCH (07:34)
[2025-01-09 07:40] LABS: ABG BASE EXCESS 10.4 mmol/L (-2.0-3.0); ABG HCO3 36.9 mmol/L (21.0-28.0); ABG OXYGEN SATURATION 94.1 % (94.0-98.0); ABG PCO2 56 mmHg (32-45); ABG PH 7.434 (7.350-7.450); DEVICE COMMENT RR MARTA; PO2, ARTERIAL BG 69.4 mmHg (83.0-108.0); TEMPERATURE, CELSIUS BG 37.0 CELSIUS (35.5-37.0); VENT MODE, BG HOME CPAP 2L (ROOM AIR)
--- NOTE | 2025-01-09 08:18 | PN ---
[facility] [address] CARDIOLOGY PROGRESS NOTE Date Patient Seen: Jan 09, 2025 Time of Visit: 08:14 Interval History: [No acute events overnight, she is now back to her home oxygen requirement, at 2 L, severely deconditioned but respiratory status has significantly improved, patient will require aggressive PT and OT with the rehabilitation Physical Examination: GENERAL: [No acute distress.] HEAD: [Normal with no signs of head trauma.] EYES: [PERRLA, EOMI, conjunctiva and sclera normal.] ENT: [Hearing grossly intact, normal oropharynx.] NECK: [Supple without JVD. There is no tenderness, lymphadenopathy, or masses. No thyromegaly. Normal carotid upstrokes without bruits.] LUNGS: [Clear breath sounds bilaterally. No wheezes, or rhonchi.] HEART: [Normal rate and rhythm. Normal S1 and S2 without mumurs, gallop or rub.] VASC: [Peripheral pulses +2 bilaterally.] ABD: [Bowel sounds normal, soft, nontender, no masses, no organomegaly. No audible bruits.] : [Not examined] LYMPH: [No lymphadenopathy noted.] EXT: [1+ bilateral LE pitting edema ] SKIN: [No rashes or lesions noted.] NEURO: [Awake, alert, and oriented x3. No focal sensory or strength deficits noted.] Laboratory: [ ] Hematology Labs: Test 01/09/25 04:25 Range/Units White Blood Count 8.7 4.8-10.8 K/uL Red Blood Count 3.88 L 4.00-5.50 MIL/uL Hemoglobin 10.5 L 12.0-16.0 g/dL Hematocrit 34.4 L 36-48 % Mean Corpuscular Volume 88.7 79-99 fL Mean Corpuscular Hemoglobin 27.1 27.0-33.0 pg Mean Corpuscular Hemoglobin Concent 30.5 L 32.0-36.0 g/dL Red Cell Distribution Width 15.2 11.0-15.5 % Platelet Count 264 130-400 K/uL Mean Platelet Volume 9.5 7.5-10.5 fL Immature Granulocyte % (Auto) 1.4 H 0-1 % Neutrophils (%) (Auto) 58.9 40.0-77.0 % Lymphocytes (%) (Auto) 26.2 21.0-51.0 % Monocytes (%) (Auto) 12.3 3.0-13.0 % Eosinophils (%) (Auto) 0.9 0.0-8.0 % Basophils (%) (Auto) 0.3 0.0-5.0 % Neutrophils # (Auto) 5.1 1.8-7.7 K/uL Lymphocytes # (Auto) 2.3 1.0-4.8 K/uL Monocytes # (Auto) 1.1 H 0.1-1.0 K/uL Eosinophils # (Auto) 0.08 0.00-0.70 K/uL Basophils # (Auto) 0.03 0.00-0.20 K/uL Absolute Immature Granulocyte (auto 0.12 0-1 K/uL Nucleated Red Blood Cells 0.0 0.0-0.19 % Chemistry Labs: Test 01/09/25 05:24 01/09/25 04:25 01/08/25 05:47 01/08/25 03:27 Range/Units Whole Blood Glucose 98 # 70-110 MG/DL Sodium Level 142 136-145 mmol/L Potassium Level 3.6 3.5-5.1 mmol/L Chloride Level 99 L 101-111 mmol/L Carbon Dioxide Level 41 *H 21-32 mmol/L Blood Urea Nitrogen 16 7-18 mg/dL Creatinine 0.9 0.5-1.0 mg/dL Glomerular Filtration Rate Calc 72 >90 mL/min Random Glucose 105 70-105 mg/dL Total Calcium 8.5 8.5-10.1 mg/dL Magnesium Level 1.70 L 1.80-2.40 mg/dL Total Bilirubin 0.3 0.2-1.0 mg/dL Aspartate Amino Transf (AST/SGOT) 16 10-37 U/L Alanine Aminotransferase (ALT/SGPT) 24 12-78 U/L Alkaline Phosphatase 76 50-136 U/L Total Protein 6.2 6.0-8.3 g/dL Albumin 2.4 L 3.5-5.0 g/dL Bedside Glucose Comment Notified Nurse B-Type Natriuretic Peptide 159 H 0-100 pg/mL Diagnostics / Radiology: [Copy/Paste Echos/Imaging Report here] Impression and Plan: [-Acute hypoxemic respiratory failure, currently on NC -Bilateral pulmonary emboli with evidence of RH strain identified on CTA done on 01/02/2025 -LLE DVT identified on venous Doppler done on 01/02/2025 -Elevated troponin (type II VA) -Sinus tachycardia -Electrolyte derangement -Chronic venous insufficiency with venous stasis ulcers -HTN -HLP -DM2 -RA -COPD, on intermittent oxygen therapy -PH -HFpEF (LVEF: 60-65% by echo done 12/10/2024) s/p CardioMEMS insertion -Chronic back pain with compression fractures involving T12, L1, and L2 -Morbid obesity Plan: 1. Bilateral pulmonary emboli with evidence of RH strain identified on CTA done on 01/02/2025 -patient currently denies any chest pain, palpitations, dyspnea or any other anginal equivalents. -no telemetry events overnight, currently with a heart rate of 99 bpm, requiring O2 by nasal cannula at 4 L/min -Cardiac enzymes-HS troponin I: 235>510>1267 -2D echocardiogram done on 01/02/2025 (preliminary) identified evidence of right heart strain. - She is status post PE thrombectomy 01/02/2025.With removal of significant clot burden -Continue with Eliquis 10 mg every 12 hrs x 7 day and the follow with Eliquis 5 mg every 12 hrs after that -Continue Hdsyserql83 mg daily -patient is back to her O2 requirement baseline which is 2 L -patient will require aggressive PT and OT, patient has declined SNF -we will have the patient ambulate with PT today, with a baseline O2 requirements of 2 L, if she maintains stable, with no desaturation the patient can be discharged by the cardiovascular standpoint Thank you for this consult cardiology will sign off at this time the patient will follow up in clinic 1-2 weeks after discharge Manpreet mac MD Thank you for this consult , cardiology will continue to follow along Manpreet Mac MD ] ATTESTATION BY PHYSICIAN I have seen and examined the patient, reviewed the above documentation, participated in medical decision making, made necessary modifications, and agree with the treatment plan as documented by my mid-level provider above. MD DORETHA Alfredo JAMES R MD Jan 09, 2025 08:18
--- NOTE | 2025-01-09 10:06 | PN ---
[facility] PROGRESS NOTE Date of Service: Jan 09, 2025 Time of Service: 10:[address] Wright SUBJECTIVE: 01/04 Patient underwent pulmonary thrombectomy. Complications reported. Patient is resting comfortably in bedside chair. She reports postprocedure she is feeling better. Patient has been transitioned to Eliquis 01/05 patient is resting comfortably in bed. Yesterday the patient has complained of right sided rib pain and and right ankle pain. X-ray of the right ribs was negative for fracture and no pneumothorax. X-ray of the right ankle demonstrated calcaneal spur with inflammation of the surrounding tissue. Patient is undergoing home O2 evaluation, physical therapy evaluation 01/06 patient was seen by nurse practitioner and physician during rounding in room 231 lying in the bed. Nurse practitioner was able to speak to Dr. Manpreet Mac regarding the diuresis. We will discontinue Lasix IV and we will place patient on Bumex 1 mg p.o. b.i.d. starting today. We will monitor patient's blood pressure in the meantime. If tomorrow BP we will be stable we will add spironolactone 25 mg daily. Patient is also complaining of some cough. Robitussin we will be ordered. As per case management patient is refusing SNF. Patient would like to return home with her home health. 6 minute walk prior discharge was ordered. We will continue to monitor patient in the meantime. A.m. labs 01/07 patient was seen by SOLUTION SPECIALIST and physician. Patient's blood pressure has been holding up nicely most recent BP is 138/70 and the previous one was 118/82 at 7:50 a.m.. As per photographic specialist request from day before we will add spironolactone 25 mg daily. Of the blood pressure will still hold up nicely patient to be discharged tomorrow. Patient already has an oxygen tank at home. Potassium magnesium to be replaced per protocol. Continue Eliquis 10 mg every 12 hours for total seven days and then follow with Eliquis 5 mg q.12 hours after that. Continue Aldactone 25 mg daily as per Cardiology. As per wound recommendation wound care to the right and left lower leg cleanse with normal saline, pat dry, apply Adaptic/Vaseline gauze to wound, cover with 4 x 4 gauze soaked with the Dakin's call with a gas, abdominal pad, wrap with Kerlix CK with tape change b.i.d. and PRN. He wounds clean and dry. Offloading repositioning q 2 hours. As per case management discharge planning is home with the [facility]. We will continue to monitor patient's blood pressure in the meantime. Anticipated discharge within 24 hours. A.m. labs 01/08 patient was seen by nurse practitioner and physician during rounding in room 231. Patient was cleared by photographic specialist to be discharged home on Bumex 1 mg b.i.d. and spironolactone 20 five daily. Lasix was discontinued. Patient feels 6 minute walk but already has oxygen at home. We are still pending final wound culture. Once dose we will come back patient will be discharged home with [facility] and appropriate antibiotics. Patient to continue Eliquis 10 mg b.i.d. for total of seven days and then continue with 5 mg b.i.d. for at least 10 days. As per green chain puller continue prednisolone 20 mg daily. We will continue to monitor patient in the meantime. Labs. 01/09 patient was seen by SOLUTION SPECIALIST and physician. Patient's wound culture is growing Enterococcus faecalis and Pseudomonas aeruginosa. Final culture still pending. Patient will receive 2 g of magnesium and 40 mEq of potassium in the meantime. Patient is alert oriented x4 resting in the bed. Patient was also complaining of some chronic back pain. Tylenol with codeine was prescribed q.6 hours as needed. Nurse practitioner was also able to talk to the patient regarding recommendations of photographic specialist to be discharged to cardiac rehab. Patient agreed with the further plan. Case management was consulted. We will continue to monitor patient in the meantime. A.m. labs REVIEW OF SYSTEMS CONSTITUTIONAL: Denies fevers, chills, or night sweats. No unintentional weight loss reported. NEUROLOGICAL: Denies headache, amaurosis fugax, motor weakness, sensory deficit, vertigo/spinning sensation, gait abnormalities, or tremors. ENT: No hearing loss, otalgia, otorrhea, rhinitis, rhinorrhea, hoarseness, or sore throat. CARDIOVASCULAR: Denies any chest pain, PULMONARY: Positive for shortness of breaths. Complains of cough GASTROINTESTINAL: Denies any type of dysphagia to either liquids or solids. Denies nausea, vomiting, pyrosis, early satiety, abdominal pain, diarrhea, constipation, or changes in stool consistency or caliber. Denies coffee-ground emesis, hematemesis, hematochezia, or melanotic stools. GENITOURINARY: Denies frequency, urgency, nocturia, hematuria or incontinence (Storage/Irritative symptoms.) Low urinary stream, straining to void, urinary intermittency or hesitancy, splitting of the voiding stream, terminal dribbling. ENDOCRINOLOGIC: Denies polyuria, polydipsia, polyphagia or heat/cold intolerances. HEMATOLOGIC: Denies thrombophilia/previous clots, or coagulopathy/bleeding disorders. ONCOLOGIC: Denies personal history of malignancy. DERMATOLOGIC: Denies rashes or pruritus. PSYCHIATRIC: Denies any suicidal or homicidal ideation. Denies hallucinations. PHYSICAL EXAM GENERAL APPEARANCE: The patient is awake, alert, and oriented, in no acute cardiopulmonary distress. Patient is unable to lie flat. She prefers to be in a seated position NEUROLOGICAL: Cranial nerves II-XII grossly intact. Motor is 5/5 in bilateral upper and lower extremities proximal to distal. No sensory deficits. HEENT: Face is symmetric. Pupils are equal and reactive. Extraocular movements are intact. NECK: Supple. No JVD. No thyromegaly. No submental, submandibular, pre- /postauricular, occipital or supraclavicular lymphadenopathy. CHEST: Normal chest expansion. No Telemetry. LUNGS: Absence of any rales, rhonchi or any wheezing. CARDIOVASCULAR: Regular. S1 and S2 normal. No appreciable rubs, murmurs or gallops. ABDOMEN: Soft, nontender, and nondistended. There is no rebound, voluntary guarding, or rigidity. : Deferred. No Schuler. EXTREMITIES: Erythema in the lower extremity bilaterally with pitting edema. She has a wound noted in the left lower extremity. Currently has a dressing present. SKIN: No skin breakdown. Vital Signs (last 8hr) Date Time Temp Pulse Resp B/P (MAP) Pulse Ox O2 Delivery O2 Flow Rate FiO2 01/09/25 07:00 97.9 88 22 139/88 94 CPAP 01/09/25 06:36 99 20 01/09/25 03:52 98.1 89 20 136/87 94 CPAP LABS: Laboratory: Test 01/09/25 07:38 01/09/25 05:24 01/09/25 04:25 01/08/25 05:47 Range/Units Blood Gas Specimen Type Arterial Arterial Blood pH 7.434 7.350-7.450 Arterial Blood Partial Pressure CO2 56 H 32-45 mmHg Arterial Blood Partial Pressure O2 69.4 L 83.0-108.0 mmHg Arterial Blood HCO3 36.9 H 21.0-28.0 mmol/L Arterial Blood Oxygen Saturation 94.1 94.0-98.0 % Arterial Blood Base Excess 10.4 H -2.0-3.0 mmol/L Blood Gas Temperature 37.0 35.5-37.0 CELSIUS Blood Gas Flow-by 2.00 0.00-15.00 L/min Blood Gas Vent Mode HOME CPAP 2L ROOM AIR FiO2 28.0 % Blood Gas Specimen Comment RR DAVID Whole Blood Glucose 98 # 70-110 MG/DL White Blood Count 8.7 4.8-10.8 K/uL Red Blood Count 3.88 L 4.00-5.50 MIL/uL Hemoglobin 10.5 L 12.0-16.0 g/dL Hematocrit 34.4 L 36-48 % Mean Corpuscular Volume 88.7 79-99 fL Mean Corpuscular Hemoglobin 27.1 27.0-33.0 pg Mean Corpuscular Hemoglobin Concent 30.5 L 32.0-36.0 g/dL Red Cell Distribution Width 15.2 11.0-15.5 % Platelet Count 264 130-400 K/uL Mean Platelet Volume 9.5 7.5-10.5 fL Immature Granulocyte % (Auto) 1.4 H 0-1 % Neutrophils (%) (Auto) 58.9 40.0-77.0 % Lymphocytes (%) (Auto) 26.2 21.0-51.0 % Monocytes (%) (Auto) 12.3 3.0-13.0 % Eosinophils (%) (Auto) 0.9 0.0-8.0 % Basophils (%) (Auto) 0.3 0.0-5.0 % Neutrophils # (Auto) 5.1 1.8-7.7 K/uL Lymphocytes # (Auto) 2.3 1.0-4.8 K/uL Monocytes # (Auto) 1.1 H 0.1-1.0 K/uL Eosinophils # (Auto) 0.08 0.00-0.70 K/uL Basophils # (Auto) 0.03 0.00-0.20 K/uL Absolute Immature Granulocyte (auto 0.12 0-1 K/uL Nucleated Red Blood Cells 0.0 0.0-0.19 % Sodium Level 142 136-145 mmol/L Potassium Level 3.6 3.5-5.1 mmol/L Chloride Level 99 L 101-111 mmol/L Carbon Dioxide Level 41 *H 21-32 mmol/L Blood Urea Nitrogen 16 7-18 mg/dL Creatinine 0.9 0.5-1.0 mg/dL Glomerular Filtration Rate Calc 72 >90 mL/min Random Glucose 105 70-105 mg/dL Total Calcium 8.5 8.5-10.1 mg/dL Magnesium Level 1.70 L 1.80-2.40 mg/dL Total Bilirubin 0.3 0.2-1.0 mg/dL Aspartate Amino Transf (AST/SGOT) 16 10-37 U/L Alanine Aminotransferase (ALT/SGPT) 24 12-78 U/L Alkaline Phosphatase 76 50-136 U/L Total Protein 6.2 6.0-8.3 g/dL Albumin 2.4 L 3.5-5.0 g/dL Bedside Glucose Comment Notified Nurse Test 01/08/25 03:27 Range/Units B-Type Natriuretic Peptide 159 H 0-100 pg/mL Current Medications Medications (Trade) Dose Ordered Sig/Ashanti Route PRN Reason Start Time Stop Time Status Last Admin Dose Admin Acetaminophen (TYLenol 500MG TAB) 500 mg Q6H PRN PO MILD PAIN (1-3) 01/02/25 14:30 02/01/25 14:29 Acetaminophen/ Codeine Phosphate (TYLenol-coDEINE TAB) 1 tab Q6H PRN PO MODERATE PAIN (4-6) 01/03/25 07:00 01/03/25 23:15 DC Apixaban (EliquIS) 5 mg BID PO 01/11/25 09:00 02/10/25 08:59 Apixaban (EliquIS) 10 mg BID PO 01/03/25 21:00 01/10/25 23:00 01/08/25 21:03 10 MG Atorvastatin Calcium (LIPItor 10MG) 10 mg DAILY PO 01/03/25 09:00 01/05/25 08:34 DC 01/04/25 10:53 10 MG Atorvastatin Calcium (LIPItor 10MG) 10 mg HS PO 01/05/25 21:00 02/02/25 08:59 01/08/25 21:04 10 MG Baclofen (Baclofen) 5 mg TID PRN PO Back Pain 01/05/25 09:00 02/02/25 06:59 01/09/25 05:20 5 MG Baclofen (Baclofen) 5 mg TIDP PRN PO Back Pain 01/03/25 07:00 01/05/25 08:35 DC 01/04/25 20:08 5 MG Bumetanide (Bumex 1mg Tab) 1 mg BID PO 01/06/25 21:00 02/05/25 20:59 01/08/25 21:03 1 MG Ceftriaxone Sodium (ROCEphine 1G INJ) 1 gm Q24H IVPB 01/02/25 15:00 01/02/25 15:19 DC Ceftriaxone Sodium (Rocephin 2gm Inj) 2 gm Q24H IVPB 01/03/25 16:00 01/13/25 15:59 01/08/25 16:38 2 GM Dextrose (D50w) 50 ml AD PRN IV HYPOGLYCEMIA PROTOCOL 01/02/25 19:30 02/01/25 19:29 Famotidine (Pepcid 20mg Vial) 20 mg Q24H IV 01/02/25 21:00 01/04/25 10:03 DC 01/03/25 20:29 20 MG Furosemide (LASix 20MG TAB) 20 mg DAILY PO 01/06/25 09:00 01/06/25 16:32 DC 01/06/25 07:59 20 MG Furosemide (LASix 20MG VIAL) 20 mg Q8H IV 01/04/25 19:30 01/05/25 09:04 DC 01/05/25 03:03 20 MG Glucagon (Glucagon 1mg Kit) 1 mg AD PRN IM HYPOGLYCEMIA PROTOCOL 01/02/25 19:30 02/01/25 19:29 Guaifenesin/ Dextromethorphan (RobiTUSSin DM 200/20MG 10ML) 5 ml Q4H PRN PO COUGH 01/06/25 16:30 02/05/25 16:29 01/06/25 16:51 5 ML Heparin Sodium (Porcine) (HEParin 5,000 UNIT VIAL) *calculation based on ACTUAL B... AD PRN IV HEPARIN PROTOCOL 01/02/25 15:00 01/03/25 21:00 DC Heparin Sodium/ Dextrose 250 ml @ 0 mls/hr Q6H IV 01/02/25 15:00 01/03/25 21:00 DC 01/03/25 09:29 0 MLS/HR Hydromorphone HCl (DiLAUDid 0.5MG INJ) 0.2 mg Q4H PRN IVP SEVERE PAIN (7-10) 01/03/25 23:30 01/08/25 23:29 DC 01/08/25 21:06 0.2 MG Insulin Human Regular (humuLIN R 100 UNIT/ML 3ML) INSULIN SLIDING SCAL... ACHS SQ 01/02/25 21:00 02/01/25 20:59 01/08/25 21:16 4 UNIT Magnesium Sulfate 50 ml @ 0 mls/hr PROTOCOL IV 01/07/25 09:30 01/09/25 06:37 DC 01/08/25 04:56 25 MLS/HR Magnesium Sulfate 50 ml @ 0 mls/hr PROTOCOL IV 01/09/25 06:30 02/08/25 06:29 01/09/25 07:34 25 MLS/HR Magnesium Sulfate 50 ml @ 0 mls/hr PROTOCOL PRN IV hypomagnesemia 01/02/25 14:30 01/07/25 09:24 DC Metoprolol Tartrate (loprESSOR) 25 mg BID PO 01/03/25 14:00 01/04/25 07:17 DC 01/03/25 20:29 25 MG Pantoprazole Sodium (PROTonix 40MG INJ) 40 mg BID IVP 01/04/25 21:00 02/03/25 20:59 01/08/25 21:05 40 MG Pantoprazole Sodium (PROTonix 40MG TAB) 40 mg DAILY PO 01/03/25 09:00 01/04/25 10:02 DC 01/03/25 09:14 40 MG Potassium Chloride 100 ml @ 100 mls/hr AD PRN IV POTASSIUM PROTOCOL 01/02/25 14:30 02/01/25 14:29 Potassium Chloride (K-Dur/Klor-Con 20meq) 20 meq AD PRN PO POTASSIUM PROTOCOL 01/02/25 14:30 02/01/25 14:29 01/08/25 09:52 20 MEQ Potassium Chloride (KCl 10% Elixir 20meq/15ml) 20 meq AD PRN PO POTASSIUM PROTOCOL 01/02/25 14:30 02/01/25 14:29 Pramipexole Dihydrochloride (miraPEX 0.25MG TAB) 0.5 mg HS PO 01/03/25 21:00 02/02/25 20:59 01/08/25 21:04 0.5 MG Prednisone (deltaSONE/ oraSONE 20MG TAB) 20 mg DAILY PO 01/05/25 09:30 01/10/25 09:29 01/08/25 09:46 20 MG Sodium Hypochlorite (Dakin'S 0.25% Half Strength) 1 APPL BID TP 01/05/25 21:00 02/04/25 20:59 01/08/25 21:06 1 APPL Sodium Chloride 1,000 ml @ 150 mls/hr Q6H40M IV 01/02/25 19:30 01/02/25 23:29 DC 01/02/25 19:48 150 MLS/HR Spironolactone (Aldactone 25mg) 25 mg DAILY PO 01/07/25 10:00 02/06/25 09:59 01/08/25 09:46 25 MG Terbinafine HCl (Lamisil) 250 mg DAILY PO 01/03/25 09:00 02/02/25 08:59 01/08/25 09:46 250 MG Tramadol HCl (UltRAM) 50 mg Q6H PRN PO MODERATE PAIN (4-6) 01/03/25 23:30 01/08/25 23:29 DC 01/08/25 23:22 50 MG DIAGNOSTICS / RADIOLOGY: [ ] ASSESSMENT: Bilateral PE POA Acute on chronic hypoxic respiratory failure secondary to PE Troponin elevation likely in setting of PE Lower back pain MRI showing chronic compression fracture of T12 vertebrae 12/16/2024 Acute diastolic congestive heart failure Bilateral lower extremity edema with chronic wound History of venous stasis History of Pulmonary hypertension History of CardioMEMS device loose Obesity Obstructive sleep apnea Hypertension Hyperlipidemia CKD stage 3 Right ankle calcaneal spur, POA PLAN: Patient's wound culture is growing Enterococcus faecalis and Pseudomonas aeruginosa. Final culture still pending. Patient will receive 2 g of magnesium and 40 mEq of potassium in the meantime. Patient is alert oriented x4 resting in the bed. Patient was also complaining of some chronic back pain. Tylenol with codeine was prescribed q.6 hours as needed. Nurse practitioner was also able to talk to the patient regarding recommendations of photographic specialist to be discharged to cardiac rehab. Patient agreed with the further plan. Case management was consulted. We will continue to monitor patient in the meantime. A.m. labs As per wound recommendation wound care to the right and left lower leg cleanse with normal saline, pat dry, apply Adaptic/Vaseline gauze to wound, cover with 4 x 4 gauze soaked with the Dakin's call with a gas, abdominal pad, wrap with Kerlix CK with tape change b.i.d. and PRN. He wounds clean and dry. Offloading repositioning q 2 hours. O2 nasal cannula as needed Follow up With Pulmonary/critical Care Medicine Heart healthy diet GI prophylaxis with pantoprazole No need for IV fluids Replete electrolytes as necessary DVT prophylaxis with heparin Trend a.m. CBC Full code Case was discussed with patient's nurse at bedside Attention time greater than 30 minutes ATTESTATION BY PHYSICIAN I have seen and examined the patient. I reviewed the documentation, medical decision making, and treatment plan as noted by the mid-level provider above. I agree with the findings and plan of care. Clay Wright IV, MD, KATARZYNA B PER[employer]ABLE FRUIT INSPECTOR Jan 09, 2025 10:06
--- NOTE | 2025-01-09 14:05 | NUR ---
[facility] Follow-up: Patient re-assessed by wound healing team, Wound improving. Assessment and recommendations provided to primary nurse Education provided. Addendum: 01/09/25 at 1524 by DMITRIY EDWARDS RN RN/ Amended: Links added.
--- NOTE | 2025-01-09 15:11 | PN ---
PROGRESS NOTE Date of Service: Jan 09, 2025 Time of Service: 15:11 SUBJECTIVE: Patient is evaluated at bedside in room 231 with at bedside. Patient is awake, alert, and oriented x 4. Patient denies any complaints at this time. Patient has been tolerating dressing changes well. No signs of distress noted. REVIEW OF SYSTEMS CONSTITUTIONAL: Denies fever, chills, or fatigue. HEAD/FACE: No signs of trauma. EENT: Denies eye pain, blurred vision, double vision, or light sensitivity. RESPIRATORY: Denies shortness of breath, cough, wheezing CARDIOVASCULAR: Denies chest pain, palpitation, syncope GASTROINTESTINAL/ABDOMINAL: Denies abdominal pain, constipation, diarrhea, nausea or vomiting GENITOURINARY: Denies dysuria or hematuria. MUSCULOSKELETAL: Denies joint pain, tenderness, or trauma. INTEGUMENTARY: Denies rash or itchiness NEUROLOGICAL/PSYCH: Denies anxiety, depression, heat or cold intolerance. PHYSICAL EXAM EYES: Anicteric. Pupils equal and reactive. HENT: No oral thrush seen, moist Oral mucosa NECK: Supple, no JVD or thyromegaly. LUNGS: Good air entry. No rales, no rhonchi. CARDIOVASCULAR: S1, S2 regular. No murmur heard. ABDOMEN: Soft, non tender, bowel sounds present, no organomegaly CENTRAL NERVOUS SYSTEM: Awake, alert, oriented x 4. No focal deficits. SKIN: Right lower leg ulcer noted with 100% granulation with mild periwound erythema no drainage. Left lower leg ulcer noted with slough and granulation with periwound erythema,minimal serous drainage. MUSCULOSKELETAL: No joint swelling, erythema or tenderness. EXTREMITIES: No cyanosis or clubbing BACK: No deformity, no pressure ulcer. GENITOURINARY: No dysuria or hematuria Vital Signs (last 8hr) Date Time Temp Pulse Resp B/P (MAP) Pulse Ox O2 Delivery O2 Flow Rate FiO2 01/09/25 11:00 98.2 88 22 119/77 95 Nasal Cannula 2.0 01/09/25 10:30 96 Nasal Cannula* 2 28 LABS: Laboratory: Test 01/09/25 11:14 01/09/25 07:38 01/09/25 04:25 01/08/25 05:47 Range/Units Whole Blood Glucose 126 H 70-110 MG/DL Blood Gas Specimen Type Arterial Arterial Blood pH 7.434 7.350-7.450 Arterial Blood Partial Pressure CO2 56 H 32-45 mmHg Arterial Blood Partial Pressure O2 69.4 L 83.0-108.0 mmHg Arterial Blood HCO3 36.9 H 21.0-28.0 mmol/L Arterial Blood Oxygen Saturation 94.1 94.0-98.0 % Arterial Blood Base Excess 10.4 H -2.0-3.0 mmol/L Blood Gas Temperature 37.0 35.5-37.0 CELSIUS Blood Gas Flow-by 2.00 0.00-15.00 L/min Blood Gas Vent Mode HOME CPAP 2L ROOM AIR FiO2 28.0 % Blood Gas Specimen Comment RR DAVID White Blood Count 8.7 4.8-10.8 K/uL Red Blood Count 3.88 L 4.00-5.50 MIL/uL Hemoglobin 10.5 L 12.0-16.0 g/dL Hematocrit 34.4 L 36-48 % Mean Corpuscular Volume 88.7 79-99 fL Mean Corpuscular Hemoglobin 27.1 27.0-33.0 pg Mean Corpuscular Hemoglobin Concent 30.5 L 32.0-36.0 g/dL Red Cell Distribution Width 15.2 11.0-15.5 % Platelet Count 264 130-400 K/uL Mean Platelet Volume 9.5 7.5-10.5 fL Immature Granulocyte % (Auto) 1.4 H 0-1 % Neutrophils (%) (Auto) 58.9 40.0-77.0 % Lymphocytes (%) (Auto) 26.2 21.0-51.0 % Monocytes (%) (Auto) 12.3 3.0-13.0 % Eosinophils (%) (Auto) 0.9 0.0-8.0 % Basophils (%) (Auto) 0.3 0.0-5.0 % Neutrophils # (Auto) 5.1 1.8-7.7 K/uL Lymphocytes # (Auto) 2.3 1.0-4.8 K/uL Monocytes # (Auto) 1.1 H 0.1-1.0 K/uL Eosinophils # (Auto) 0.08 0.00-0.70 K/uL Basophils # (Auto) 0.03 0.00-0.20 K/uL Absolute Immature Granulocyte (auto 0.12 0-1 K/uL Nucleated Red Blood Cells 0.0 0.0-0.19 % Sodium Level 142 136-145 mmol/L Potassium Level 3.6 3.5-5.1 mmol/L Chloride Level 99 L 101-111 mmol/L Carbon Dioxide Level 41 *H 21-32 mmol/L Blood Urea Nitrogen 16 7-18 mg/dL Creatinine 0.9 0.5-1.0 mg/dL Glomerular Filtration Rate Calc 72 >90 mL/min Random Glucose 105 70-105 mg/dL Total Calcium 8.5 8.5-10.1 mg/dL Magnesium Level 1.70 L 1.80-2.40 mg/dL Total Bilirubin 0.3 0.2-1.0 mg/dL Aspartate Amino Transf (AST/SGOT) 16 10-37 U/L Alanine Aminotransferase (ALT/SGPT) 24 12-78 U/L Alkaline Phosphatase 76 50-136 U/L Total Protein 6.2 6.0-8.3 g/dL Albumin 2.4 L 3.5-5.0 g/dL Bedside Glucose Comment Notified Nurse Test 01/08/25 03:27 Range/Units B-Type Natriuretic Peptide 159 H 0-100 pg/mL DIAGNOSTICS / RADIOLOGY: [ ] PROBLEM LIST : Medical Problems: Chronic Venous Hypertension with ulcer to bilateral lower legs 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 Thank You for the consult and allowing us to participate in the care of this patient. ATTESTATION BY PHYSICIAN I have seen and examined the patient. I reviewed the documentation, medical decision making, and treatment plan as noted by the mid-level provider above. I agree with the findings and plan of care. BHASKAR CARREON MD, [facility]HEL[facility] [employer] Jan 09, 2025 15:11
--- NOTE | 2025-01-09 16:13 | PN ---
[facility] PROGRESS NOTE Date Patient Seen: Jan 09, 2025 Time of Visit: 16:10 Supervising Physician: Dr Gianni Berry Primary Care Physician: VINCE HASSAN MD Outpatient Specialists: [ ] Inpatient Consults: AUREA PROBLEM LIST: Acute on chronic hypercarbic hypoxemic respiratory failure Acute bilateral PE present on admission: Unprovoked Status post bilateral embolectomy 01/03/2025 Acute non-STEMI on admission Acute DVT to the left lower extremity Compression fracture of the T12 vertebral body Chronic venous stasis of the lower extremities bilaterally Cellulitis of the lower extremities bilaterally Mild pulmonary hypertension Morbid obesity: BMI 36 Obstructive sleep apnea Hypertension Chronic kidney disease stage 3 INTERVAL HISTORY: Patient seen and examined, patient awake alert and oriented, ambulating with the assistance of a walker with at bedside Nursing reports no acute events overnight. Patient is afebrile Patient with good saturations nasal cannula 2 L, she is home O2 dependent as well Patient's cultures of the lower extremities are pending, she continues on the Eliquis for the PEs Tolerating her diet Plan: Continue antibiotics Follow pending cultures Eliquis Supplemental O2 Recommend cardiac rehab Total care time spent 38 minutes, time excludes any procedures or educational time REVIEW OF SYSTEMS: 12 points review of systems done; all pertinent information addressed. Otherwise, negative. PHYSICAL EXAM: GENERAL: alert, weak, awake oriented x 3, fatigue HEENT: EOMI, Sclera non icteric, moist mucosa NECK: History of thyroid mass, no JVD, trachea midline LUNGS: Decreased breath sounds bilaterally with fine crackles at the bases. No wheezing HEART: Regular rate and rhythm. Normal S1 and S2, without murmurs ABD: Abdomen soft, nontender. Bowel sounds present EXT: Bilateral lower extremity edema consistent with stasis, no cyanosis. NEURO: Alert and oriented to person, follows commands Vital Signs (last 8hr) Date Time Temp Pulse Resp B/P (MAP) Pulse Ox O2 Delivery O2 Flow Rate FiO2 01/09/25 11:00 98.2 88 22 119/77 95 Nasal Cannula 2.0 01/09/25 10:30 96 Nasal Cannula* 2 28 LABS: Hematology Labs: Test 01/09/25 04:25 Range/Units White Blood Count 8.7 4.8-10.8 K/uL Red Blood Count 3.88 L 4.00-5.50 MIL/uL Hemoglobin 10.5 L 12.0-16.0 g/dL Hematocrit 34.4 L 36-48 % Mean Corpuscular Volume 88.7 79-99 fL Mean Corpuscular Hemoglobin 27.1 27.0-33.0 pg Mean Corpuscular Hemoglobin Concent 30.5 L 32.0-36.0 g/dL Red Cell Distribution Width 15.2 11.0-15.5 % Platelet Count 264 130-400 K/uL Mean Platelet Volume 9.5 7.5-10.5 fL Immature Granulocyte % (Auto) 1.4 H 0-1 % Neutrophils (%) (Auto) 58.9 40.0-77.0 % Lymphocytes (%) (Auto) 26.2 21.0-51.0 % Monocytes (%) (Auto) 12.3 3.0-13.0 % Eosinophils (%) (Auto) 0.9 0.0-8.0 % Basophils (%) (Auto) 0.3 0.0-5.0 % Neutrophils # (Auto) 5.1 1.8-7.7 K/uL Lymphocytes # (Auto) 2.3 1.0-4.8 K/uL Monocytes # (Auto) 1.1 H 0.1-1.0 K/uL Eosinophils # (Auto) 0.08 0.00-0.70 K/uL Basophils # (Auto) 0.03 0.00-0.20 K/uL Absolute Immature Granulocyte (auto 0.12 0-1 K/uL Nucleated Red Blood Cells 0.0 0.0-0.19 % Chemistry Labs: Test 01/09/25 15:51 01/09/25 04:25 01/08/25 05:47 01/08/25 03:27 Range/Units Whole Blood Glucose 201 #H 70-110 MG/DL Sodium Level 142 136-145 mmol/L Potassium Level 3.6 3.5-5.1 mmol/L Chloride Level 99 L 101-111 mmol/L Carbon Dioxide Level 41 *H 21-32 mmol/L Blood Urea Nitrogen 16 7-18 mg/dL Creatinine 0.9 0.5-1.0 mg/dL Glomerular Filtration Rate Calc 72 >90 mL/min Random Glucose 105 70-105 mg/dL Total Calcium 8.5 8.5-10.1 mg/dL Magnesium Level 1.70 L 1.80-2.40 mg/dL Total Bilirubin 0.3 0.2-1.0 mg/dL Aspartate Amino Transf (AST/SGOT) 16 10-37 U/L Alanine Aminotransferase (ALT/SGPT) 24 12-78 U/L Alkaline Phosphatase 76 50-136 U/L Total Protein 6.2 6.0-8.3 g/dL Albumin 2.4 L 3.5-5.0 g/dL Bedside Glucose Comment Notified Nurse B-Type Natriuretic Peptide 159 H 0-100 pg/mL DIAGNOSTICS / RADIOLOGY RESULTS: [ ] PLAN Follow wound culture results Continue with Rocephin We will switch to oral antibiotics once we have the culture and sensitivity results Continue on oxygen Wound care Continue Eliquis NEURO: Minimize central acting medications as possible. Maintain fall precautions, adequate lighting during the day PULMONARY: Supplemental 02 as needed. Maintain aspiration precautions at all times CARDIOVASCULAR: Follow hemodynamics. Vital signs per facility protocol GI & NUTRITION: Continue with nutritional support. Continue stool softeners and laxatives as needed. KIDNEYS & ELECTROLYTES: Strict monitoring of intake, output and overall fluid balance. Avoid nephrotoxic medications to the extent possible. Medications to be dosed according to renal function. Monitor electrolytes and replace as needed ENDOCRINE: Maintain blood glucose between 100-180 at all times. Hypoglycemia protocol in place INFECTIOUS DISEASE: Trend temperature, WBC and procalcitonin level Follow cultures, deescalate antibiotics as soon as possible. Panculture if new onset fever ONCOLOGY/HEMATOLOGY/COAGULATION: Monitor for s/s of bleeding Monitor hemoglobin, coagulation studies as needed SKIN: Pressure ulcer prevention per facility protocol Specialty mattress ORTHO/REHAB: Continue PT/OT Prophylaxis: Continue GI and DVT prophylaxis Code Status: Full Resuscitation Disposition: As per primary AVANI LANG PAC Jan 09, 2025 16:13
[2025-01-10] VITALS (11 sets, daily range): BP systolic 128–139; BP diastolic 62–93; PULSE 87–111; RESP 16–20; TEMP 97.4–98.4; O2SAT 92–98
[2025-01-10 04:49] LABS: IMMATURE GRANULOCYTE ABSOLUTE 0.13 K/uL (0-1); NUCLEATED RED BLOOD CELLS 0.2 % (0.0-0.19); PLATELET COUNT (AUTO) 249 K/uL (130-400); RED BLOOD CELL COUNT(AUTO) 3.88 MIL/uL (4.00-5.50); RED CELL DISTRIBUTION WIDTH 15.4 % (11.0-15.5); WHITE BLOOD COUNT (AUTO) 8.8 K/uL (4.8-10.8)
[2025-01-10 05:00] LABS: ASPARTATE AMINOTRANSFERASE 14.0 U/L (10-37); CREATININE 1.0 mg/dL (0.5-1.0); GLOMERULAR FILTR. RATE CALC 63.0 mL/min (>90); GLUCOSE,RANDOM 119.0 mg/dL (70-105); SODIUM SERUM 146.0 mmol/L (136-145); TOTAL PROTEIN, SERUM 6.1 g/dL (6.0-8.3); UREA NITROGEN, BLOOD 23.0 mg/dL (7-18)
[2025-01-10] MEDS: AMOX/CLAV 875/125MG TAB PO SCH (10:01)
--- NOTE | 2025-01-10 11:50 | NUR ---
JESSICA Henson from [facility]. Insurance auth remains pending at this time.
--- NOTE | 2025-01-10 13:37 | PN ---
[facility] PROGRESS NOTE Date of Service: Jan 10, 2025 Time of Service: 13:[address] Quan SUBJECTIVE: 01/04 Patient underwent pulmonary thrombectomy. Complications reported. Patient is resting comfortably in bedside chair. She reports postprocedure she is feeling better. Patient has been transitioned to Eliquis 01/05 patient is resting comfortably in bed. Yesterday the patient has complained of right sided rib pain and and right ankle pain. X-ray of the right ribs was negative for fracture and no pneumothorax. X-ray of the right ankle demonstrated calcaneal spur with inflammation of the surrounding tissue. Patient is undergoing home O2 evaluation, physical therapy evaluation 01/06 patient was seen by nurse practitioner and physician during rounding in room 231 lying in the bed. Nurse practitioner was able to speak to Dr. Manpreet Mac regarding the diuresis. We will discontinue Lasix IV and we will place patient on Bumex 1 mg p.o. b.i.d. starting today. We will monitor patient's blood pressure in the meantime. If tomorrow BP we will be stable we will add spironolactone 25 mg daily. Patient is also complaining of some cough. Robitussin we will be ordered. As per case management patient is refusing SNF. Patient would like to return home with her home health. 6 minute walk prior discharge was ordered. We will continue to monitor patient in the meantime. A.m. labs 01/07 patient was seen by FISHING ROD TRIMMER and physician. Patient's blood pressure has been holding up nicely most recent BP is 138/70 and the previous one was 118/82 at 7:50 a.m.. As per phototypesetter operator request from day before we will add spironolactone 25 mg daily. Of the blood pressure will still hold up nicely patient to be discharged tomorrow. Patient already has an oxygen tank at home. Potassium magnesium to be replaced per protocol. Continue Eliquis 10 mg every 12 hours for total seven days and then follow with Eliquis 5 mg q.12 hours after that. Continue Aldactone 25 mg daily as per Cardiology. As per wound recommendation wound care to the right and left lower leg cleanse with normal saline, pat dry, apply Adaptic/Vaseline gauze to wound, cover with 4 x 4 gauze soaked with the Dakin's call with a gas, abdominal pad, wrap with Kerlix CK with tape change b.i.d. and PRN. He wounds clean and dry. Offloading repositioning q 2 hours. As per case management discharge planning is home with the [facility]. We will continue to monitor patient's blood pressure in the meantime. Anticipated discharge within 24 hours. A.m. labs 01/08 patient was seen by nurse practitioner and physician during rounding in room 231. Patient was cleared by phototypesetter operator to be discharged home on Bumex 1 mg b.i.d. and spironolactone 20 five daily. Lasix was discontinued. Patient feels 6 minute walk but already has oxygen at home. We are still pending final wound culture. Once dose we will come back patient will be [facility] and appropriate antibiotics. Patient to continue Eliquis 10 mg b.i.d. for total of seven days and then continue with 5 mg b.i.d. for at least 10 days. As per dry charge process attendant continue prednisolone 20 mg daily. We will continue to monitor patient in the meantime. Labs. 01/09 patient was seen by FISHING ROD TRIMMER and physician. Patient's wound culture is growing Enterococcus faecalis and Pseudomonas aeruginosa. Final culture still pending. Patient will receive 2 g of magnesium and 40 mEq of potassium in the meantime. Patient is alert oriented x4 resting in the bed. Patient was also complaining of some chronic back pain. Tylenol with codeine was prescribed q.6 hours as needed. Nurse practitioner was also able to talk to the patient regarding recommendations of phototypesetter operator to be discharged to cardiac rehab. Patient agreed with the further plan. Case management was consulted. We will continue to monitor patient in the meantime. A.m. labs 01/10 patient was seen by nurse practitioner and physician during rounding. Patient was sitting in the chair on 4 L nasal cannula. As per RN patient was just walking around the nursing station with a PCP and walker. Patient was short of breaths so decided to go back to room to take a break. Final wound culture is growing Enterococcus faecalis and Pseudomonas aeruginosa. As per susceptibility that came back today in a.m. patient will be placed on Augmentin 875 mg p.o. b.i.d. and levofloxacin 500 mg daily p.o. as of now. If patient will be accepted to facility we can switch antibiotics to ID. If patient will refused from SNF patient will go home on p.o. ABX. Continue Eliquis 10 mg p.o. b.i.d. for total of seven days and then switch to 5 mg b.i.d.. We will continue to monitor patient in the meantime. A.m. labs. REVIEW OF SYSTEMS CONSTITUTIONAL: Denies fevers, chills, or night sweats. No unintentional weight loss reported. NEUROLOGICAL: Denies headache, amaurosis fugax, motor weakness, sensory deficit, vertigo/spinning sensation, gait abnormalities, or tremors. ENT: No hearing loss, otalgia, otorrhea, rhinitis, rhinorrhea, hoarseness, or sore throat. CARDIOVASCULAR: Denies any chest pain, PULMONARY: Positive for shortness of breaths. Complains of cough GASTROINTESTINAL: Denies any type of dysphagia to either liquids or solids. Denies nausea, vomiting, pyrosis, early satiety, abdominal pain, diarrhea, constipation, or changes in stool consistency or caliber. Denies coffee-ground emesis, hematemesis, hematochezia, or melanotic stools. GENITOURINARY: Denies frequency, urgency, nocturia, hematuria or incontinence (Storage/Irritative symptoms.) Low urinary stream, straining to void, urinary intermittency or hesitancy, splitting of the voiding stream, terminal dribbling. ENDOCRINOLOGIC: Denies polyuria, polydipsia, polyphagia or heat/cold intolerances. HEMATOLOGIC: Denies thrombophilia/previous clots, or coagulopathy/bleeding disorders. ONCOLOGIC: Denies personal history of malignancy. DERMATOLOGIC: Denies rashes or pruritus. PSYCHIATRIC: Denies any suicidal or homicidal ideation. Denies hallucinations. PHYSICAL EXAM GENERAL APPEARANCE: The patient is awake, alert, and oriented, in no acute cardiopulmonary distress. Patient is unable to lie flat. She prefers to be in a seated position NEUROLOGICAL: Cranial nerves II-XII grossly intact. Motor is 5/5 in bilateral upper and lower extremities proximal to distal. No sensory deficits. HEENT: Face is symmetric. Pupils are equal and reactive. Extraocular movements are intact. NECK: Supple. No JVD. No thyromegaly. No submental, submandibular, pre- /postauricular, occipital or supraclavicular lymphadenopathy. CHEST: Normal chest expansion. No Telemetry. LUNGS: Absence of any rales, rhonchi or any wheezing. CARDIOVASCULAR: Regular. S1 and S2 normal. No appreciable rubs, murmurs or gallops. ABDOMEN: Soft, nontender, and nondistended. There is no rebound, voluntary guarding, or rigidity. : Deferred. No Schuler. EXTREMITIES: Erythema in the lower extremity bilaterally with pitting edema. She has a wound noted in the left lower extremity. Currently has a dressing present. SKIN: No skin breakdown. Vital Signs (last 8hr) Date Time Temp Pulse Resp B/P (MAP) Pulse Ox O2 Delivery O2 Flow Rate FiO2 01/10/25 11:26 98.4 111 18 139/93 97 Nasal Cannula 2.0 01/10/25 07:44 98.1 92 18 128/75 95 Nasal Cannula 2.0 01/10/25 06:49 90 20 LABS: Laboratory: Test 01/10/25 11:32 01/10/25 04:40 01/09/25 19:08 01/09/25 07:38 Range/Units Whole Blood Glucose 126 H 70-110 MG/DL White Blood Count 8.8 4.8-10.8 K/uL Red Blood Count 3.88 L 4.00-5.50 MIL/uL Hemoglobin 10.6 L 12.0-16.0 g/dL Hematocrit 34.1 L 36-48 % Mean Corpuscular Volume 87.9 79-99 fL Mean Corpuscular Hemoglobin 27.3 27.0-33.0 pg Mean Corpuscular Hemoglobin Concent 31.1 L 32.0-36.0 g/dL Red Cell Distribution Width 15.4 11.0-15.5 % Platelet Count 249 130-400 K/uL Mean Platelet Volume 9.2 7.5-10.5 fL Immature Granulocyte % (Auto) 1.5 H 0-1 % Neutrophils (%) (Auto) 62.3 40.0-77.0 % Lymphocytes (%) (Auto) 23.9 21.0-51.0 % Monocytes (%) (Auto) 11.5 3.0-13.0 % Eosinophils (%) (Auto) 0.7 0.0-8.0 % Basophils (%) (Auto) 0.1 0.0-5.0 % Neutrophils # (Auto) 5.5 1.8-7.7 K/uL Lymphocytes # (Auto) 2.1 1.0-4.8 K/uL Monocytes # (Auto) 1.0 0.1-1.0 K/uL Eosinophils # (Auto) 0.06 0.00-0.70 K/uL Basophils # (Auto) 0.01 0.00-0.20 K/uL Absolute Immature Granulocyte (auto 0.13 0-1 K/uL Nucleated Red Blood Cells 0.2 H 0.0-0.19 % Sodium Level 146 H 136-145 mmol/L Potassium Level 4.0 3.5-5.1 mmol/L Chloride Level 100 L 101-111 mmol/L Carbon Dioxide Level 38 H 21-32 mmol/L Blood Urea Nitrogen 23 H 7-18 mg/dL Creatinine 1.0 0.5-1.0 mg/dL Glomerular Filtration Rate Calc 63 >90 mL/min Random Glucose 119 H 70-105 mg/dL Total Calcium 8.7 8.5-10.1 mg/dL Magnesium Level 1.90 1.80-2.40 mg/dL Total Bilirubin 0.2 0.2-1.0 mg/dL Aspartate Amino Transf (AST/SGOT) 14 10-37 U/L Alanine Aminotransferase (ALT/SGPT) 23 12-78 U/L Alkaline Phosphatase 67 50-136 U/L Total Protein 6.1 6.0-8.3 g/dL Albumin 2.5 L 3.5-5.0 g/dL Bedside Glucose Comment Notified Nurse Blood Gas Specimen Type Arterial Arterial Blood pH 7.434 7.350-7.450 Arterial Blood Partial Pressure CO2 56 H 32-45 mmHg Arterial Blood Partial Pressure O2 69.4 L 83.0-108.0 mmHg Arterial Blood HCO3 36.9 H 21.0-28.0 mmol/L Arterial Blood Oxygen Saturation 94.1 94.0-98.0 % Arterial Blood Base Excess 10.4 H -2.0-3.0 mmol/L Blood Gas Temperature 37.0 35.5-37.0 CELSIUS Blood Gas Flow-by 2.00 0.00-15.00 L/min Blood Gas Vent Mode HOME CPAP 2L ROOM AIR FiO2 28.0 % Blood Gas Specimen Comment RR DAVID Current Medications Medications (Trade) Dose Ordered Sig/Ashanti Route PRN Reason Start Time Stop Time Status Last Admin Dose Admin Acetaminophen (TYLenol 500MG TAB) 500 mg Q6H PRN PO MILD PAIN (1-3) 01/02/25 14:30 02/01/25 14:29 Acetaminophen/ Codeine Phosphate (TYLenol-coDEINE TAB) 1 tab Q6H PRN PO MODERATE PAIN (4-6) 01/03/25 07:00 01/03/25 23:15 DC Acetaminophen/ Codeine Phosphate (TYLenol-coDEINE TAB) 2 tab Q6H PRN PO MODERATE PAIN (4-6) 01/09/25 10:00 02/08/25 09:59 01/10/25 13:18 2 TAB Amoxicillin/ Clavulanate Potassium (Augmentin 875-125 Tablet) 1 each Q12H PO 01/10/25 10:00 01/20/25 09:59 01/10/25 10:01 1 EACH Apixaban (EliquIS) 5 mg BID PO 01/11/25 09:00 02/10/25 08:59 Apixaban (EliquIS) 10 mg BID PO 01/03/25 21:00 01/10/25 23:00 01/10/25 10:02 10 MG Atorvastatin Calcium (LIPItor 10MG) 10 mg DAILY PO 01/03/25 09:00 01/05/25 08:34 DC 01/04/25 10:53 10 MG Atorvastatin Calcium (LIPItor 10MG) 10 mg HS PO 01/05/25 21:00 02/02/25 08:59 01/09/25 20:26 10 MG Baclofen (Baclofen) 5 mg TID PRN PO Back Pain 01/05/25 09:00 02/02/25 06:59 01/10/25 13:18 5 MG Baclofen (Baclofen) 5 mg TIDP PRN PO Back Pain 01/03/25 07:00 01/05/25 08:35 DC 01/04/25 20:08 5 MG Bumetanide (Bumex 1mg Tab) 1 mg BID PO 01/06/25 21:00 02/05/25 20:59 01/10/25 10:01 1 MG Ceftriaxone Sodium (ROCEphine 1G INJ) 1 gm Q24H IVPB 01/02/25 15:00 01/02/25 15:19 DC Ceftriaxone Sodium (Rocephin 2gm Inj) 2 gm Q24H IVPB 01/03/25 16:00 01/10/25 09:39 DC 01/09/25 16:32 2 GM Dextrose (D50w) 50 ml AD PRN IV HYPOGLYCEMIA PROTOCOL 01/02/25 19:30 02/01/25 19:29 Famotidine (Pepcid 20mg Vial) 20 mg Q24H IV 01/02/25 21:00 01/04/25 10:03 DC 01/03/25 20:29 20 MG Furosemide (LASix 20MG TAB) 20 mg DAILY PO 01/06/25 09:00 01/06/25 16:32 DC 01/06/25 07:59 20 MG Furosemide (LASix 20MG VIAL) 20 mg Q8H IV 01/04/25 19:30 01/05/25 09:04 DC 01/05/25 03:03 20 MG Glucagon (Glucagon 1mg Kit) 1 mg AD PRN IM HYPOGLYCEMIA PROTOCOL 01/02/25 19:30 02/01/25 19:29 Guaifenesin/ Dextromethorphan (RobiTUSSin DM 200/20MG 10ML) 5 ml Q4H PRN PO COUGH 01/06/25 16:30 02/05/25 16:29 01/09/25 17:10 5 ML Heparin Sodium (Porcine) (HEParin 5,000 UNIT VIAL) *calculation based on ACTUAL B... AD PRN IV HEPARIN PROTOCOL 01/02/25 15:00 01/03/25 21:00 DC Heparin Sodium/ Dextrose 250 ml @ 0 mls/hr Q6H IV 01/02/25 15:00 01/03/25 21:00 DC 01/03/25 09:29 0 MLS/HR Hydromorphone HCl (DiLAUDid 0.5MG INJ) 0.2 mg Q4H PRN IVP SEVERE PAIN (7-10) 01/03/25 23:30 01/08/25 23:29 DC 01/08/25 21:06 0.2 MG Insulin Human Regular (humuLIN R 100 UNIT/ML 3ML) INSULIN SLIDING SCAL... ACHS SQ 01/02/25 21:00 02/01/25 20:59 01/09/25 20:35 4 UNIT Levofloxacin (LEvaquIN 500MG TAB) 500 mg DAILY PO 01/11/25 09:00 01/21/25 08:59 Magnesium Sulfate 50 ml @ 0 mls/hr PROTOCOL IV 01/07/25 09:30 01/09/25 06:37 DC 01/08/25 04:56 25 MLS/HR Magnesium Sulfate 50 ml @ 0 mls/hr PROTOCOL IV 01/09/25 06:30 02/08/25 06:29 01/09/25 07:34 25 MLS/HR Magnesium Sulfate 50 ml @ 0 mls/hr PROTOCOL PRN IV hypomagnesemia 01/02/25 14:30 01/07/25 09:24 DC Metoprolol Tartrate (loprESSOR) 25 mg BID PO 01/03/25 14:00 01/04/25 07:17 DC 01/03/25 20:29 25 MG Pantoprazole Sodium (PROTonix 40MG INJ) 40 mg BID IVP 01/04/25 21:00 02/03/25 20:59 01/10/25 10:03 40 MG Pantoprazole Sodium (PROTonix 40MG TAB) 40 mg DAILY PO 01/03/25 09:00 01/04/25 10:02 DC 01/03/25 09:14 40 MG Potassium Chloride 100 ml @ 100 mls/hr AD PRN IV POTASSIUM PROTOCOL 01/02/25 14:30 02/01/25 14:29 Potassium Chloride (K-Dur/Klor-Con 20meq) 20 meq AD PRN PO POTASSIUM PROTOCOL 01/02/25 14:30 02/01/25 14:29 01/09/25 16:32 20 MEQ Potassium Chloride (KCl 10% Elixir 20meq/15ml) 20 meq AD PRN PO POTASSIUM PROTOCOL 01/02/25 14:30 02/01/25 14:29 Pramipexole Dihydrochloride (miraPEX 0.25MG TAB) 0.5 mg HS PO 01/03/25 21:00 02/02/25 20:59 01/09/25 20:26 0.5 MG Prednisone (deltaSONE/ oraSONE 20MG TAB) 20 mg DAILY PO 01/05/25 09:30 01/10/25 09:29 DC 01/10/25 10:02 20 MG Sodium Hypochlorite (Dakin'S 0.25% Half Strength) 1 APPL BID TP 01/05/25 21:00 02/04/25 20:59 01/10/25 10:05 1 APPL Sodium Chloride 1,000 ml @ 150 mls/hr Q6H40M IV 01/02/25 19:30 01/02/25 23:29 DC 01/02/25 19:48 150 MLS/HR Spironolactone (Aldactone 25mg) 25 mg DAILY PO 01/07/25 10:00 02/06/25 09:59 01/10/25 10:02 25 MG Terbinafine HCl (Lamisil) 250 mg DAILY PO 01/03/25 09:00 02/02/25 08:59 01/10/25 10:02 250 MG Tramadol HCl (UltRAM) 50 mg Q6H PRN PO MODERATE PAIN (4-6) 01/03/25 23:30 01/08/25 23:29 DC 01/08/25 23:22 50 MG DIAGNOSTICS / RADIOLOGY: [ ] ASSESSMENT: Bilateral PE POA Acute on chronic hypoxic respiratory failure secondary to PE Troponin elevation likely in setting of PE Lower back pain MRI showing chronic compression fracture of T12 vertebrae 12/16/2024 Acute diastolic congestive heart failure Bilateral lower extremity edema with chronic wound History of venous stasis History of Pulmonary hypertension History of CardioMEMS device loose Obesity Obstructive sleep apnea Hypertension Hyperlipidemia CKD stage 3 Right ankle calcaneal spur, POA PLAN: Patient was sitting in the chair on 4 L nasal cannula. As per RN patient was just walking around the nursing station with a PCP and walker. Patient was short of breaths so decided to go back to room to take a break. Final wound culture is growing Enterococcus faecalis and Pseudomonas aeruginosa. As per susceptibility that came back today in a.m. patient will be placed on Augmentin 875 mg p.o. b.i.d. and levofloxacin 500 mg daily p.o. as of now. If patient will be accepted to facility we can switch antibiotics to ID. If patient will refused from SNF patient will go home on p.o. ABX. Continue Eliquis 10 mg p.o. b.i.d. for total of seven days and then switch to 5 mg b.i.d.. We will continue to monitor patient in the meantime. A.m. labs. As per wound recommendation wound care to the right and left lower leg cleanse with normal saline, pat dry, apply Adaptic/Vaseline gauze to wound, cover with 4 x 4 gauze soaked with the Dakin's call with a gas, abdominal pad, wrap with Kerlix CK with tape change b.i.d. and PRN. He wounds clean and dry. Offloading repositioning q 2 hours. O2 nasal cannula as needed Follow up With Pulmonary/critical Care Medicine Heart healthy diet GI prophylaxis with pantoprazole No need for IV fluids Replete electrolytes as necessary DVT prophylaxis with heparin Trend a.m. CBC Full code Case was discussed with patient's nurse at bedside Attention time greater than 30 minutes ATTESTATION BY PHYSICIAN . I reviewed the documentation, medical decision making, and treatment plan as noted by the mid-level provider above. I agree with the findings and plan of care. Macario Quan MD, [facility] Jan 10, 2025 13:37 MACARIO QUAN MD Jan 12, 2025 12:58
--- NOTE | 2025-01-10 17:06 | PN ---
[facility] PROGRESS NOTE Date Patient Seen: Jan 10, 2025 Time of Visit: 17:01 Supervising Physician: [ ] Primary Care Physician: VINCE HASSAN MD Outpatient Specialists: [ ] Inpatient Consults: AUREA PROBLEM LIST: Acute on chronic hypercarbic hypoxemic respiratory failure Acute bilateral PE present on admission: Unprovoked Status post bilateral embolectomy 01/03/2025 Acute non-STEMI on admission Acute DVT to the left lower extremity Compression fracture of the T12 vertebral body Chronic venous stasis of the lower extremities bilaterally Bilateral Pseudomonas cellulitis of lower extremities Cellulitis of the lower extremities bilaterally Mild pulmonary hypertension Morbid obesity:BMI 36 Obstructive sleep apnea Hypertension Chronic kidney disease stage 3 -HFpEF (LVEF: 60-65% by echo done 12/10/2024) s/p CardioMEMS insertion INTERVAL HISTORY: Patient seen and examined, patient awake alert and oriented, ambulating with the assistance of a walker with at bedside No bleeding on eliquis Nursing reports no acute events overnight. Patient is afebrile Patient with good saturations nasal cannula 2 L, she is home O2 dependent as well Patient's cultures of the lower extremities with pseudomonas Plan: Eliquis 10 mg po bid x 7 days recommend terminal block assembler AC with eliquis 5 mg po bid CPAP therapy Supplemental O2 Recommend cardiac rehab time REVIEW OF SYSTEMS: 12 points review of systems done; all pertinent information addressed. Otherwise, negative. PHYSICAL EXAM: GENERAL: alert, weak, awake oriented x 3, fatigue HEENT: EOMI, Sclera non icteric, moist mucosa NECK: History of thyroid mass, no JVD, trachea midline LUNGS: Decreased breath sounds bilaterally with fine crackles at the bases. No wheezing HEART: Regular rate and rhythm. Normal S1 and S2, without murmurs ABD: Abdomen soft, nontender. Bowel sounds present EXT: Bilateral lower extremity edema consistent with stasis, no cyanosis. NEURO: Alert and oriented to person, follows commands Vital Signs (last 8hr) Date Time Temp Pulse Resp B/P (MAP) Pulse Ox O2 Delivery O2 Flow Rate FiO2 01/10/25 11:26 98.4 111 18 139/93 97 Nasal Cannula 2.0 LABS: Hematology Labs: Test 01/10/25 04:40 Range/Units White Blood Count 8.8 4.8-10.8 K/uL Red Blood Count 3.88 L 4.00-5.50 MIL/uL Hemoglobin 10.6 L 12.0-16.0 g/dL Hematocrit 34.1 L 36-48 % Mean Corpuscular Volume 87.9 79-99 fL Mean Corpuscular Hemoglobin 27.3 27.0-33.0 pg Mean Corpuscular Hemoglobin Concent 31.1 L 32.0-36.0 g/dL Red Cell Distribution Width 15.4 11.0-15.5 % Platelet Count 249 130-400 K/uL Mean Platelet Volume 9.2 7.5-10.5 fL Immature Granulocyte % (Auto) 1.5 H 0-1 % Neutrophils (%) (Auto) 62.3 40.0-77.0 % Lymphocytes (%) (Auto) 23.9 21.0-51.0 % Monocytes (%) (Auto) 11.5 3.0-13.0 % Eosinophils (%) (Auto) 0.7 0.0-8.0 % Basophils (%) (Auto) 0.1 0.0-5.0 % Neutrophils # (Auto) 5.5 1.8-7.7 K/uL Lymphocytes # (Auto) 2.1 1.0-4.8 K/uL Monocytes # (Auto) 1.0 0.1-1.0 K/uL Eosinophils # (Auto) 0.06 0.00-0.70 K/uL Basophils # (Auto) 0.01 0.00-0.20 K/uL Absolute Immature Granulocyte (auto 0.13 0-1 K/uL Nucleated Red Blood Cells 0.2 H 0.0-0.19 % Chemistry Labs: Test 01/10/25 16:37 01/10/25 04:40 01/09/25 19:08 Range/Units Whole Blood Glucose 215 #H 70-110 MG/DL Sodium Level 146 H 136-145 mmol/L Potassium Level 4.0 3.5-5.1 mmol/L Chloride Level 100 L 101-111 mmol/L Carbon Dioxide Level 38 H 21-32 mmol/L Blood Urea Nitrogen 23 H 7-18 mg/dL Creatinine 1.0 0.5-1.0 mg/dL Glomerular Filtration Rate Calc 63 >90 mL/min Random Glucose 119 H 70-105 mg/dL Total Calcium 8.7 8.5-10.1 mg/dL Magnesium Level 1.90 1.80-2.40 mg/dL Total Bilirubin 0.2 0.2-1.0 mg/dL Aspartate Amino Transf (AST/SGOT) 14 10-37 U/L Alanine Aminotransferase (ALT/SGPT) 23 12-78 U/L Alkaline Phosphatase 67 50-136 U/L Total Protein 6.1 6.0-8.3 g/dL Albumin 2.5 L 3.5-5.0 g/dL Bedside Glucose Comment Notified Nurse DIAGNOSTICS / RADIOLOGY RESULTS: [ ] PLAN continue eliquis per cardiology recs monitor for bleeding Pt is on % L will try weaning o2 as tolerated Pt to use inpatient cpap machine at hs possible downgrade in am Multimodal pain management Maintain O2 sats above 92% lasix 20mg iv q8hrs for now strict stacie Supplement oxygen as needed Coags Monitor electrolytes and replace per protocol Potassium goal of 4 Magnesium goal of 2 NEURO: Minimize central acting medications as possible. Fall Precautions. Well lighted room through the day and minimize interruptions through the night to prevent acute delirium. PULMONARY: Supplemental 02 as needed Titrate Fio2 to keep Spo2 > or = 92% DuoNebs and CPT as needed IS hourly while awake for pulmonary hygiene Out of bed to chair as tolerated CARDIOVASCULAR: Follow hemodynamics. Titrate vasopressor to keep MAP >65 or systolic blood pressure >95mmHg DRIPS: Heparin drip LINES: PIV GI & NUTRITION: Continue nutritional support Aspirations precautions Prokinetic agents and laxatives as needed NPO for now for possible procedure KIDNEYS & ELECTROLYTES: Strict monitoring of intake and output Daily weights Avoid nephrotoxic agents Monitor electrolytes and replace as needed Goal urine output of 30mL/hr or 0.5mL/kg/hr ENDOCRINE: Maintain blood glucose between 100-180 at all times. Insulin sliding scale for blood glucose management TSH and a.m. A1c name INFECTIOUS DISEASE: Trend temperature. Dumont-culture if febrile. Micro: [ ] Negative for flu a and B, Negative for COVID Negative for strep Antibiotics: Per primary team Rocephin HEMATOLOGY & COAGULATION: Monitor H&H. Keep Hgb > 7 Transfuse 1 unit of PRBC for Hgb < 7 Transfuse 1 pack of platelets of platelets < 20, 000 Watch for any signs and symptoms of bleeding SKIN: Pressure ulcer prevention per facility protocol Rehab: PT/OT Prophylaxis: GI: protonix DVT: Heparin drip per protocol Code Status: Full Resuscitation Disposition: ICU Other: Critical care time This patient required multiple bedside visits to manage the patient, review blood gases, coordinate with respiratory, nurses, review radiology exams, talk to the family members and discuss advanced directives. I personally spent [35] minutes of critical care time in treatment of this patient. This includes patient management, time at bedside, time reviewing tests, labs, appropriate images and studies, documentation, and patient care coordination. This time excludes separately billable procedures. KYLIE SIMPSON MD Jan 10, 2025 17:06
[2025-01-10] MEDS: ZOSYN 3.375GM +NS 50ML IV SCH (20:00)
--- NOTE | 2025-01-10 21:13 | NUR ---
patient request heat pack to upper back to relieve pain.
[2025-01-11] VITALS (9 sets, daily range): BP systolic 118–140; BP diastolic 72–98; PULSE 85–109; RESP 16–22; TEMP 97.8–98.2; O2SAT 95–97
[2025-01-11 03:41] LABS: IMMATURE GRANULOCYTE ABSOLUTE 0.12 K/uL (0-1); NUCLEATED RED BLOOD CELLS 0.0 % (0.0-0.19); PLATELET COUNT (AUTO) 273 K/uL (130-400); RED BLOOD CELL COUNT(AUTO) 3.74 MIL/uL (4.00-5.50); RED CELL DISTRIBUTION WIDTH 15.2 % (11.0-15.5); WHITE BLOOD COUNT (AUTO) 9.1 K/uL (4.8-10.8)
[2025-01-11 04:09] LABS: ASPARTATE AMINOTRANSFERASE 15.0 U/L (10-37); CREATININE 0.9 mg/dL (0.5-1.0); GLOMERULAR FILTR. RATE CALC 72.0 mL/min (>90); GLUCOSE,RANDOM 102.0 mg/dL (70-105); SODIUM SERUM 144.0 mmol/L (136-145); TOTAL PROTEIN, SERUM 5.9 g/dL (6.0-8.3); UREA NITROGEN, BLOOD 23.0 mg/dL (7-18)
--- NOTE | 2025-01-11 05:51 | NUR ---
patient with pain to back, states pain level of 9. No prn medication available to give. tylenol with codeine last given 2 hours ago. Patient asking for more pain medicine. Call made to Emily hawk director inpatient headache program with hospitalist. Ordered morphine 2mg iv x1, zofran 4mg iv x1.
--- NOTE | 2025-01-11 10:20 | NUR ---
JESSICA Followed up rozina Henson from [facility]. She mentions that ins auth remains pending.
--- NOTE | 2025-01-11 11:29 | PN ---
[facility] PROGRESS NOTE Date of Service: Jan 11, 2025 Time of Service: 11:23 Attending doctor Quan SUBJECTIVE: 01/04 Patient underwent pulmonary thrombectomy. Complications reported. Patient is resting comfortably in bedside chair. She reports postprocedure she is feeling better. Patient has been transitioned to Eliquis 01/05 patient is resting comfortably in bed. Yesterday the patient has complained of right sided rib pain and and right ankle pain. X-ray of the right ribs was negative for fracture and no pneumothorax. X-ray of the right ankle demonstrated calcaneal spur with inflammation of the surrounding tissue. Patient is undergoing home O2 evaluation, physical therapy evaluation 01/06 patient was seen by nurse practitioner and physician during rounding in room 231 lying in the bed. Nurse practitioner was able to speak to Dr. Manpreet Mac regarding the diuresis. We will discontinue Lasix IV and we will place patient on Bumex 1 mg p.o. b.i.d. starting today. We will monitor patient's blood pressure in the meantime. If tomorrow BP we will be stable we will add spironolactone 25 mg daily. Patient is also complaining of some cough. Robitussin we will be ordered. As per case management patient is refusing SNF. Patient would like to return home with her home health. 6 minute walk prior discharge was ordered. We will continue to monitor patient in the meantime. A.m. labs 01/07 patient was seen by DATABASE OPERATOR and physician. Patient's blood pressure has been holding up nicely most recent BP is 138/70 and the previous one was 118/82 at 7:50 a.m.. As per continuing education instructor request from day before we will add spironolactone 25 mg daily. Of the blood pressure will still hold up nicely patient to be discharged tomorrow. Patient already has an oxygen tank at home. Potassium magnesium to be replaced per protocol. Continue Eliquis 10 mg every 12 hours for total seven days and then follow with Eliquis 5 mg q.12 hours after that. Continue Aldactone 25 mg daily as per Cardiology. As per wound recommendation wound care to the right and left lower leg cleanse with normal saline, pat dry, apply Adaptic/Vaseline gauze to wound, cover with 4 x 4 gauze soaked with the Dakin's call with a gas, abdominal pad, wrap with Kerlix CK with tape change b.i.d. and PRN. He wounds clean and dry. Offloading repositioning q 2 hours. As per case management discharge planning is home with the [facility]. We will continue to monitor patient's blood pressure in the meantime. Anticipated discharge within 24 hours. A.m. labs 01/08 patient was seen by nurse practitioner and physician during rounding in room 231. Patient was cleared by continuing education instructor to be discharged home on Bumex 1 mg b.i.d. and spironolactone 20 five daily. Lasix was discontinued. Patient feels 6 minute walk but already has oxygen at home. We are still pending final wound culture. Once dose we will come back patient will be discharged home with [facility] and appropriate antibiotics. Patient to continue Eliquis 10 mg b.i.d. for total of seven days and then continue with 5 mg b.i.d. for at least 10 days. As per cathodic protection technician continue prednisolone 20 mg daily. We will continue to monitor patient in the meantime. Labs. 01/09 patient was seen by DATABASE OPERATOR and physician. Patient's wound culture is growing Enterococcus faecalis and Pseudomonas aeruginosa. Final culture still pending. Patient will receive 2 g of magnesium and 40 mEq of potassium in the meantime. Patient is alert oriented x4 resting in the bed. Patient was also complaining of some chronic back pain. Tylenol with codeine was prescribed q.6 hours as needed. Nurse practitioner was also able to talk to the patient regarding rec ommendations of continuing education instructor to be discharged to cardiac rehab. Patient agreed with the further plan. Case management was consulted. We will continue to monitor patient in the meantime. A.m. labs 01/10 patient was seen by nurse practitioner and physician during rounding. Patient was sitting in the chair on 4 L nasal cannula. As per RN patient was just walking around the nursing station with a PCP and walker. Patient was short of breaths so decided to go back to room to take a break. Final wound culture is growing Enterococcus faecalis and Pseudomonas aeruginosa. As per susceptibility that came back today in a.m. patient will be placed on Augmentin 875 mg p.o. b.i.d. and levofloxacin 500 mg daily p.o. as of now. If patient will be accepted to facility we can switch antibiotics to ID. If patient will refused from SNF patient will go home on p.o. ABX. Continue Eliquis 10 mg p.o. b.i.d. for total of seven days and then switch to 5 mg b.i.d.. We will continue to monitor patient in the meantime. A.m. labs. 01/11 patient was seen by DATABASE OPERATOR and physician sitting in the chair at the bedside. As per RN patient has been ambulating around the nursing station. Patient alert oriented x4 on 4 L nasal cannula. Patient was evaluated by the wound care and at this moment they recommended right and left lower leg cleanse with normal saline, pat dry, apply Adaptic/Vaseline gauze to wound, covered with 4 x 4 gauze soaked with Dakin's covered with a gauze, abdominal pad, brought the Kerlix secure with tape change b.i.d. and PRN. Keep wounds clean and dry. Offloading/reposition q.2 hours. Continue antibiotics for Enterococcus faecalis and Pseudomonas aeruginosa with Augmentin 875 mg p.o. b.i.d. and levofloxacin 500 mg daily POA. Patient completed a course of total of seven days on Eliquis 10 mg b.i.d.. Patient will continue with Eliquis 5 mg b.i.d. starting today. Patient is pending cardiac rehab once insurance approved. We will continue to monitor patient in the meantime. A.m. labs REVIEW OF SYSTEMS CONSTITUTIONAL: Denies fevers, chills, or night sweats. No unintentional weight loss reported. NEUROLOGICAL: Denies headache, amaurosis fugax, motor weakness, sensory deficit, vertigo/spinning sensation, gait abnormalities, or tremors. ENT: No hearing loss, otalgia, otorrhea, rhinitis, rhinorrhea, hoarseness, or sore throat. CARDIOVASCULAR: Denies any chest pain, PULMONARY: Positive for shortness of breaths. Complains of cough GASTROINTESTINAL: Denies any type of dysphagia to either liquids or solids. Denies nausea, vomiting, pyrosis, early satiety, abdominal pain, diarrhea, constipation, or changes in stool consistency or caliber. Denies coffee-ground emesis, hematemesis, hematochezia, or melanotic stools. GENITOURINARY: Denies frequency, urgency, nocturia, hematuria or incontinence (Storage/Irritative symptoms.) Low urinary stream, straining to void, urinary intermittency or hesitancy, splitting of the voiding stream, terminal dribbling. ENDOCRINOLOGIC: Denies polyuria, polydipsia, polyphagia or heat/cold intolerances. HEMATOLOGIC: Denies thrombophilia/previous clots, or coagulopathy/bleeding disorders. ONCOLOGIC: Denies personal history of malignancy. DERMATOLOGIC: Denies rashes or pruritus. PSYCHIATRIC: Denies any suicidal or homicidal ideation. Denies hallucinations. PHYSICAL EXAM GENERAL APPEARANCE: The patient is awake, alert, and oriented, in no acute cardiopulmonary distress. Patient is unable to lie flat. She prefers to be in a seated position NEUROLOGICAL: Cranial nerves II-XII grossly intact. Motor is 5/5 in bilateral upper and lower extremities proximal to distal. No sensory deficits. HEENT: Face is symmetric. Pupils are equal and reactive. Extraocular movements are intact. NECK: Supple. No JVD. No thyromegaly. No submental, submandibular, pre- /postauricular, occipital or supraclavicular lymphadenopathy. CHEST: Normal chest expansion. No Telemetry. LUNGS: Absence of any rales, rhonchi or any wheezing. CARDIOVASCULAR: Regular. S1 and S2 normal. No appreciable rubs, murmurs or gallops. ABDOMEN: Soft, nontender, and nondistended. There is no rebound, voluntary guarding, or rigidity. : Deferred. No Schuler. EXTREMITIES: Erythema in the lower extremity bilaterally with pitting edema. She has a wound noted in the left lower extremity. Currently has a dressing present. SKIN: No skin breakdown. Vital Signs (last 8hr) Date Time Temp Pulse Resp B/P (MAP) Pulse Ox O2 Delivery O2 Flow Rate FiO2 01/11/25 07:33 98.1 85 18 140/82 95 Nasal Cannula 2.0 01/11/25 06:39 87 18 N/Cannula Low lpm 2.0 28 01/11/25 03:29 98.2 88 20 129/82 95 CPAP LABS: Laboratory: Test 01/11/25 05:06 01/11/25 03:27 01/10/25 19:41 Range/Units Whole Blood Glucose 103 # 70-110 MG/DL White Blood Count 9.1 4.8-10.8 K/uL Red Blood Count 3.74 L 4.00-5.50 MIL/uL Hemoglobin 10.4 L 12.0-16.0 g/dL Hematocrit 33.2 L 36-48 % Mean Corpuscular Volume 88.8 79-99 fL Mean Corpuscular Hemoglobin 27.8 27.0-33.0 pg Mean Corpuscular Hemoglobin Concent 31.3 L 32.0-36.0 g/dL Red Cell Distribution Width 15.2 11.0-15.5 % Platelet Count 273 130-400 K/uL Mean Platelet Volume 9.4 7.5-10.5 fL Immature Granulocyte % (Auto) 1.3 H 0-1 % Neutrophils (%) (Auto) 57.1 40.0-77.0 % Lymphocytes (%) (Auto) 29.8 21.0-51.0 % Monocytes (%) (Auto) 11.1 3.0-13.0 % Eosinophils (%) (Auto) 0.5 0.0-8.0 % Basophils (%) (Auto) 0.2 0.0-5.0 % Neutrophils # (Auto) 5.2 1.8-7.7 K/uL Lymphocytes # (Auto) 2.7 1.0-4.8 K/uL Monocytes # (Auto) 1.0 0.1-1.0 K/uL Eosinophils # (Auto) 0.05 0.00-0.70 K/uL Basophils # (Auto) 0.02 0.00-0.20 K/uL Absolute Immature Granulocyte (auto 0.12 0-1 K/uL Nucleated Red Blood Cells 0.0 0.0-0.19 % Sodium Level 144 136-145 mmol/L Potassium Level 3.5 3.5-5.1 mmol/L Chloride Level 100 L 101-111 mmol/L Carbon Dioxide Level 39 H 21-32 mmol/L Blood Urea Nitrogen 23 H 7-18 mg/dL Creatinine 0.9 0.5-1.0 mg/dL Glomerular Filtration Rate Calc 72 >90 mL/min Random Glucose 102 70-105 mg/dL Total Calcium 8.7 8.5-10.1 mg/dL Magnesium Level 1.80 1.80-2.40 mg/dL Total Bilirubin 0.3 # 0.2-1.0 mg/dL Aspartate Amino Transf (AST/SGOT) 15 10-37 U/L Alanine Aminotransferase (ALT/SGPT) 22 12-78 U/L Alkaline Phosphatase 67 50-136 U/L Total Protein 5.9 L 6.0-8.3 g/dL Albumin 2.5 L 3.5-5.0 g/dL Bedside Glucose Comment Notified Nurse Current Medications Medications (Trade) Dose Ordered Sig/Ashanti Route PRN Reason Start Time Stop Time Status Last Admin Dose Admin Acetaminophen (TYLenol 500MG TAB) 500 mg Q6H PRN PO MILD PAIN (1-3) 01/02/25 14:30 02/01/25 14:29 Acetaminophen/ Codeine Phosphate (TYLenol-coDEINE TAB) 1 tab Q6H PRN PO MODERATE PAIN (4-6) 01/03/25 07:00 01/03/25 23:15 DC Acetaminophen/ Codeine Phosphate (TYLenol-coDEINE TAB) 2 tab Q6H PRN PO MODERATE PAIN (4-6) 01/09/25 10:00 02/08/25 09:59 01/11/25 03:48 2 TAB Amoxicillin/ Clavulanate Potassium (Augmentin 875-125 Tablet) 1 each Q12H PO 01/10/25 10:00 01/10/25 14:44 DC 01/10/25 10:01 1 EACH Apixaban (EliquIS) 5 mg BID PO 01/11/25 09:00 02/10/25 08:59 01/11/25 09:17 5 MG Apixaban (EliquIS) 10 mg BID PO 01/03/25 21:00 01/10/25 23:00 DC 01/10/25 20:01 10 MG Atorvastatin Calcium (LIPItor 10MG) 10 mg DAILY PO 01/03/25 09:00 01/05/25 08:34 DC 01/04/25 10:53 10 MG Atorvastatin Calcium (LIPItor 10MG) 10 mg HS PO 01/05/25 21:00 02/02/25 08:59 01/10/25 20:01 10 MG Baclofen (Baclofen) 5 mg TID PRN PO Back Pain 01/05/25 09:00 02/02/25 06:59 01/11/25 03:48 5 MG Baclofen (Baclofen) 5 mg TIDP PRN PO Back Pain 01/03/25 07:00 01/05/25 08:35 DC 01/04/25 20:08 5 MG Bumetanide (Bumex 1mg Tab) 1 mg BID PO 01/06/25 21:00 02/05/25 20:59 01/11/25 09:17 1 MG Ceftriaxone Sodium (ROCEphine 1G INJ) 1 gm Q24H IVPB 01/02/25 15:00 01/02/25 15:19 DC Ceftriaxone Sodium (Rocephin 2gm Inj) 2 gm Q24H IVPB 01/03/25 16:00 01/10/25 09:39 DC 01/09/25 16:32 2 GM Dextrose (D50w) 50 ml AD PRN IV HYPOGLYCEMIA PROTOCOL 01/02/25 19:30 02/01/25 19:29 Famotidine (Pepcid 20mg Vial) 20 mg Q24H IV 01/02/25 21:00 01/04/25 10:03 DC 01/03/25 20:29 20 MG Furosemide (LASix 20MG TAB) 20 mg DAILY PO 01/06/25 09:00 01/06/25 16:32 DC 01/06/25 07:59 20 MG Furosemide (LASix 20MG VIAL) 20 mg Q8H IV 01/04/25 19:30 01/05/25 09:04 DC 01/05/25 03:03 20 MG Glucagon (Glucagon 1mg Kit) 1 mg AD PRN IM HYPOGLYCEMIA PROTOCOL 01/02/25 19:30 02/01/25 19:29 Guaifenesin/ Dextromethorphan (RobiTUSSin DM 200/20MG 10ML) 5 ml Q4H PRN PO COUGH 01/06/25 16:30 02/05/25 16:29 01/09/25 17:10 5 ML Heparin Sodium (Porcine) (HEParin 5,000 UNIT VIAL) *calculation based on ACTUAL B... AD PRN IV HEPARIN PROTOCOL 01/02/25 15:00 01/03/25 21:00 DC Heparin Sodium/ Dextrose 250 ml @ 0 mls/hr Q6H IV 01/02/25 15:00 01/03/25 21:00 DC 01/03/25 09:29 0 MLS/HR Hydromorphone HCl (DiLAUDid 0.5MG INJ) 0.2 mg Q4H PRN IVP SEVERE PAIN (7-10) 01/03/25 23:30 01/08/25 23:29 DC 01/08/25 21:06 0.2 MG Insulin Human Regular (humuLIN R 100 UNIT/ML 3ML) INSULIN SLIDING SCAL... ACHS SQ 01/02/25 21:00 02/01/25 20:59 01/10/25 20:23 6 UNIT Levofloxacin (LEvaquIN 500MG TAB) 500 mg DAILY PO 01/11/25 09:00 01/10/25 14:44 DC Magnesium Sulfate 50 ml @ 0 mls/hr PROTOCOL IV 01/07/25 09:30 01/09/25 06:37 DC 01/08/25 04:56 25 MLS/HR Magnesium Sulfate 50 ml @ 0 mls/hr PROTOCOL IV 01/09/25 06:30 02/08/25 06:29 01/11/25 07:14 25 MLS/HR Magnesium Sulfate 50 ml @ 0 mls/hr PROTOCOL PRN IV hypomagnesemia 01/02/25 14:30 01/07/25 09:24 DC Metoprolol Tartrate (loprESSOR) 25 mg BID PO 01/03/25 14:00 01/04/25 07:17 DC 01/03/25 20:29 25 MG Pantoprazole Sodium (PROTonix 40MG INJ) 40 mg BID IVP 01/04/25 21:00 02/03/25 20:59 01/11/25 09:17 40 MG Pantoprazole Sodium (PROTonix 40MG TAB) 40 mg DAILY PO 01/03/25 09:00 01/04/25 10:02 DC 01/03/25 09:14 40 MG Piperacillin Sod/ Tazobactam Sod (Zosyn 3.375gm+NS 50ml) 3.375 gm Q8H IV 01/10/25 20:00 01/20/25 19:59 01/11/25 03:25 3.375 GM Potassium Chloride 100 ml @ 100 mls/hr AD PRN IV POTASSIUM PROTOCOL 01/02/25 14:30 02/01/25 14:29 Potassium Chloride (K-Dur/Klor-Con 20meq) 20 meq AD PRN PO POTASSIUM PROTOCOL 01/02/25 14:30 02/01/25 14:29 01/11/25 09:16 20 MEQ Potassium Chloride (KCl 10% Elixir 20meq/15ml) 20 meq AD PRN PO POTASSIUM PROTOCOL 01/02/25 14:30 02/01/25 14:29 Pramipexole Dihydrochloride (miraPEX 0.25MG TAB) 0.5 mg HS PO 01/03/25 21:00 02/02/25 20:59 01/10/25 20:01 0.5 MG Prednisone (deltaSONE/ oraSONE 20MG TAB) 20 mg DAILY PO 01/05/25 09:30 01/10/25 09:29 DC 01/10/25 10:02 20 MG Sodium Hypochlorite (Dakin'S 0.25% Half Strength) 1 APPL BID TP 01/05/25 21:00 02/04/25 20:59 01/11/25 09:18 1 APPL Sodium Chloride 1,000 ml @ 150 mls/hr Q6H40M IV 01/02/25 19:30 01/02/25 23:29 DC 01/02/25 19:48 150 MLS/HR Spironolactone (Aldactone 25mg) 25 mg DAILY PO 01/07/25 10:00 02/06/25 09:59 01/11/25 09:17 25 MG Terbinafine HCl (Lamisil) 250 mg DAILY PO 01/03/25 09:00 02/02/25 08:59 01/11/25 09:17 250 MG Tramadol HCl (UltRAM) 50 mg Q6H PRN PO MODERATE PAIN (4-6) 01/03/25 23:30 01/08/25 23:29 DC 01/08/25 23:22 50 MG DIAGNOSTICS / RADIOLOGY: [ ] ASSESSMENT: Bilateral PE POA Acute on chronic hypoxic respiratory failure secondary to PE Troponin elevation likely in setting of PE Lower back pain MRI showing chronic compression fracture of T12 vertebrae 12/16/2024 Acute diastolic congestive heart failure Bilateral lower extremity edema with chronic wound History of venous stasis History of Pulmonary hypertension History of CardioMEMS device loose Obesity Obstructive sleep apnea Hypertension Hyperlipidemia CKD stage 3 Right ankle calcaneal spur, POA PLAN: As per RN patient has been ambulating around the nursing station. Patient amanuel rt oriented x4 on 4 L nasal cannula. Patient was evaluated by the wound care and at this moment they recommended right and left lower leg cleanse with normal saline, pat dry, apply Adaptic/Vaseline gauze to wound, covered with 4 x 4 gauze soaked with Dakin's covered with a gauze, abdominal pad, brought the Kerlix secure with tape change b.i.d. and PRN. Keep wounds clean and dry. Offloading/reposition q.2 hours. Patient is pending cardiac rehab once insurance approved. We will continue to monitor patient in the meantime. A.m. labs Final wound culture is growing Enterococcus faecalis and Pseudomonas aeruginosa. As per susceptibility that came back today in a.m. patient will be placed on Augmentin 875 mg p.o. b.i.d. and levofloxacin 500 mg daily p.o. as of now. If patient will be accepted to facility we can switch antibiotics to Iv. If patient will refused from SNF patient will go home on p.o. ABX. As per wound recommendation wound care to the right and left lower leg cleanse with normal saline, pat dry, apply Adaptic/Vaseline gauze to wound, cover with 4 x 4 gauze soaked with the Dakin's call with a gas, abdominal pad, wrap with Kerlix CK with tape change b.i.d. and PRN. He wounds clean and dry. Offloading repositioning q 2 hours. O2 nasal cannula as needed Follow up With Pulmonary/critical Care Medicine Heart healthy diet GI prophylaxis with pantoprazole No need for IV fluids Replete electrolytes as necessary DVT prophylaxis with heparin Trend a.m. CBC Full code Case was discussed with patient's nurse at bedside Attention time greater than 30 minutes ATTESTATION BY PHYSICIAN I reviewed the documentation, medical decision making, and treatment plan as noted by the mid-level provider above. I agree with the findings and plan of care. Macario Quan MD, [facility] Jan 11, 2025 11:29 MACARIO QUAN MD Jan 12, 2025 13:00
--- NOTE | 2025-01-11 13:55 | PN ---
[facility] PROGRESS NOTE Date Patient Seen: Jan 11, 2025 Time of Visit: 13:53 Supervising Physician: Dr Gianni Berry Primary Care Physician: VINCE HASSAN MD Outpatient Specialists: [ ] Inpatient Consults: AUREA PROBLEM LIST: Acute on chronic hypercarbic hypoxemic respiratory failure Acute bilateral PE present on admission: Unprovoked Status post bilateral embolectomy 01/03/2025 Acute non-STEMI on admission Acute DVT to the left lower extremity Compression fracture of the T12 vertebral body Chronic venous stasis of the lower extremities bilaterally Bilateral Pseudomonas cellulitis of lower extremities Cellulitis of the lower extremities bilaterally Mild pulmonary hypertension Morbid obesity:BMI 36 Obstructive sleep apnea Hypertension Chronic kidney disease stage 3 -HFpEF (LVEF: 60-65% by echo done 12/10/2024) s/p CardioMEMS insertion INTERVAL HISTORY: Patient seen and examined, patient awake alert and oriented, patient reports feeling well, no complaints Currently on nasal cannula at 2 L with good saturations She has no fevers, her heart rate is 85, blood pressure 140/82 She continues on the Eliquis, currently on 10 mg b.i.d. but we will can be converted to 5 mg after 1 week She continues to diurese with Bumex 1 mg q.12, She has the Pseudomonas in the urine for which we are treating with Zosyn Patient pending a SNF and a midline for continued antibiotics Plan: Following specialty recs Case management is working on placement Midline for continued Antibiotics antibiotics per ID recs Total time spent in the care of this patient greater than 36 minutes, this excludes any time spent on procedures teaching or education. REVIEW OF SYSTEMS: 12 points review of systems done; all pertinent information addressed. Oth erwise, negative. PHYSICAL EXAM: GENERAL: alert, weak, awake oriented x 3, fatigue HEENT: EOMI, Sclera non icteric, moist mucosa NECK: History of thyroid mass, no JVD, trachea midline LUNGS: Decreased breath sounds bilaterally with fine crackles at the bases. No wheezing HEART: Regular rate and rhythm. Normal S1 and S2, without murmurs ABD: Abdomen soft, nontender. Bowel sounds present EXT: Bilateral lower extremity edema consistent with stasis, no cyanosis. NEURO: Alert and oriented to person, follows commands Vital Signs (last 8hr) Date Time Temp Pulse Resp B/P (MAP) Pulse Ox O2 Delivery O2 Flow Rate FiO2 01/11/25 12:20 97.9 109 18 129/94 95 Nasal Cannula 2.0 01/11/25 08:00 95 Nasal Cannula* 2 28 01/11/25 07:33 98.1 85 18 140/82 95 Nasal Cannula 2.0 01/11/25 06:39 87 18 N/Cannula Low lpm 2.0 28 LABS: Hematology Labs: Test 01/11/25 03:27 Range/Units White Blood Count 9.1 4.8-10.8 K/uL Red Blood Count 3.74 L 4.00-5.50 MIL/uL Hemoglobin 10.4 L 12.0-16.0 g/dL Hematocrit 33.2 L 36-48 % Mean Corpuscular Volume 88.8 79-99 fL Mean Corpuscular Hemoglobin 27.8 27.0-33.0 pg Mean Corpuscular Hemoglobin Concent 31.3 L 32.0-36.0 g/dL Red Cell Distribution Width 15.2 11.0-15.5 % Platelet Count 273 130-400 K/uL Mean Platelet Volume 9.4 7.5-10.5 fL Immature Granulocyte % (Auto) 1.3 H 0-1 % Neutrophils (%) (Auto) 57.1 40.0-77.0 % Lymphocytes (%) (Auto) 29.8 21.0-51.0 % Monocytes (%) (Auto) 11.1 3.0-13.0 % Eosinophils (%) (Auto) 0.5 0.0-8.0 % Basophils (%) (Auto) 0.2 0.0-5.0 % Neutrophils # (Auto) 5.2 1.8-7.7 K/uL Lymphocytes # (Auto) 2.7 1.0-4.8 K/uL Monocytes # (Auto) 1.0 0.1-1.0 K/uL Eosinophils # (Auto) 0.05 0.00-0.70 K/uL Basophils # (Auto) 0.02 0.00-0.20 K/uL Absolute Immature Granulocyte (auto 0.12 0-1 K/uL Nucleated Red Blood Cells 0.0 0.0-0.19 % Chemistry Labs: Test 01/11/25 11:48 01/11/25 03:27 01/10/25 19:41 Range/Units Whole Blood Glucose 167 #H 70-110 MG/DL Sodium Level 144 136-145 mmol/L Potassium Level 3.5 3.5-5.1 mmol/L Chloride Level 100 L 101-111 mmol/L Carbon Dioxide Level 39 H 21-32 mmol/L Blood Urea Nitrogen 23 H 7-18 mg/dL Creatinine 0.9 0.5-1.0 mg/dL Glomerular Filtration Rate Calc 72 >90 mL/min Random Glucose 102 70-105 mg/dL Total Calcium 8.7 8.5-10.1 mg/dL Magnesium Level 1.80 1.80-2.40 mg/dL Total Bilirubin 0.3 # 0.2-1.0 mg/dL Aspartate Amino Transf (AST/SGOT) 15 10-37 U/L Alanine Aminotransferase (ALT/SGPT) 22 12-78 U/L Alkaline Phosphatase 67 50-136 U/L Total Protein 5.9 L 6.0-8.3 g/dL Albumin 2.5 L 3.5-5.0 g/dL Bedside Glucose Comment Notified Nurse DIAGNOSTICS / RADIOLOGY RESULTS: [ ] PLAN Follow wound culture results Continue with Rocephin We will switch to oral antibiotics once we have the culture and sensitivity results Continue on oxygen Wound care Continue Eliquis NEURO: Minimize central acting medications as possible. Maintain fall precautions, adequate lighting during the day PULMONARY: Supplemental 02 as needed. Maintain aspiration precautions at all times CARDIOVASCULAR: Follow hemodynamics. Vital signs per facility protocol GI & NUTRITION: Continue with nutritional support. Continue stool softeners and laxatives as needed. KIDNEYS & ELECTROLYTES: Strict monitoring of intake, output and overall fluid balance. Avoid nephrotoxic medications to the extent possible. Medications to be dosed according to renal function. Monitor electrolytes and replace as needed ENDOCRINE: Maintain blood glucose between 100-180 at all times. Hypoglycemia protocol in place INFECTIOUS DISEASE: Trend temperature, WBC and procalcitonin level Follow cultures, deescalate antibiotics as soon as possible. Panculture if new onset fever ONCOLOGY/HEMATOLOGY/COAGULATION: Monitor for s/s of bleeding Monitor hemoglobin, coagulation studies as needed SKIN: Pressure ulcer prevention per facility protocol Specialty mattress ORTHO/REHAB: Continue PT/OT Prophylaxis: Continue GI and DVT prophylaxis Code Status: Full Resuscitation Disposition: As per primary AVANI LANG PAC Jan 11, 2025 13:55
[2025-01-11 14:22] LABS: INR 1.12 (0.85-1.15)
[2025-01-12] VITALS (9 sets, daily range): BP systolic 125–141; BP diastolic 68–81; PULSE 88–108; RESP 18–24; TEMP 97.7–98.7; O2SAT 94–97
--- NOTE | 2025-01-12 03:29 | NUR ---
Patient verbalized feeling nauseated after having eaten a ham sandwich and jello. No prn medication available for nausea. Denies any abdominal pain. Last bm yesterday 01/11/25 as per patient. Paged hospitalist recreation coordinator. Spoke to Gregoria hawk professor of forestry. Ordered zofran 4mg iv x1.
--- NOTE | 2025-01-12 03:34 | CONS ---
INFECTIOUS DISEASE CONSULTATION DATE OF SERVICE: 01/10/2025 REQUESTING PHYSICIAN: Luis Quan MD REASON FOR CONSULTATION: Bilateral leg ulcer, polymicrobial wound infection. HISTORY OF PRESENT ILLNESS: A 64-year-old female with morbid obesity, hypertension, rheumatoid arthritis, presented to the hospital with chest pain and shortness of breath. The patient complained of SOB and had elevated D-dimer. CT angiogram chest was done which came back positive for bilateral pulmonary embolism. The patient underwent successful thrombectomy with Cardiology. The patient has ulcer both legs, worse on the left side. Wound culture has been done which came back positive for enterococcus faecalis and Klebsiella pneumoniae. The patient was placed on Augmentin and levofloxacin. No fever or chills. No lower extremities. PAST MEDICAL HISTORY: * Morbid obesity. * Hypertension. * Rheumatoid arthritis. * Pulmonary hypertension. * Obstructive sleep apnea. * CHF. * . PAST SURGICAL HISTORY: * Hysterectomy. * Lithotripsy. * Laminectomy. * Cholecystectomy. ALLERGIES: GABAPENTIN. CURRENT MEDICATIONS: Reviewed. SOCIAL HISTORY: Lives with . No alcohol, tobacco, or illicit drug use. FAMILY HISTORY: Noncontributory. REVIEW OF SYSTEMS: Greater than 10 systems were reviewed, negative except as documented above. PHYSICAL EXAMINATION: GENERAL: The patient is a elderly female, awake, ill looking. VITAL SIGNS: Temperature 98.4, pulse 111, respiratory rate 18, blood pressure 139/93. EYES: No icterus. Pupils equal and reactive. HENT: No oral thrush seen. Moist oral mucosa. NECK: Supple. No JVD or thyromegaly. LUNGS: Good air entry. No rales, no rhonchi. CARDIOVASCULAR: S1, S2, regular. No murmur heard. ABDOMEN: Obese, soft, nontender. Bowel sounds present. CENTRAL NERVOUS SYSTEM: Awake, alert, oriented x 3. No focal deficits. SKIN: No rashes, no itchiness. LYMPHATIC: There is bilateral inguinal lymphadenopathy. BACK: No deformity, no pressure ulcer. EXTREMITIES: Ulcer and necrosis involving both lower extremities, worse on the left side. LABORATORY DATA: Sodium 146, potassium 4.0, BUN 23, creatinine 1.0, WBC 8.9, hemoglobin 10.6, platelet 249. RADIOLOGY: CTA result were reviewed. ASSESSMENT: A 64-year-old female with shortness of breath and cough. Current problem include: * Acute pulmonary embolism. * Left leg ulcer. * Polymicrobial wound infection. * Morbid obesity. * Hypoxic respiratory failure. * Anemia. PLAN: * Discontinue Augmentin. * Discontinue levofloxacin. * Start patient on Zosyn. * Continue anticoagulation. * Continue pain management. * Continue BiPAP. * Continue physical therapy. * Monitor electrolytes. * The patient will be followed up closely. Thank you for allowing me to participate in the care of this patient. TID: [id number] RECEIPT: [id number] MTDD
[2025-01-12 03:46] LABS: IMMATURE GRANULOCYTE ABSOLUTE 0.08 K/uL (0-1); NUCLEATED RED BLOOD CELLS 0.0 % (0.0-0.19); PLATELET COUNT (AUTO) 269 K/uL (130-400); RED BLOOD CELL COUNT(AUTO) 3.75 MIL/uL (4.00-5.50); RED CELL DISTRIBUTION WIDTH 15.5 % (11.0-15.5); WHITE BLOOD COUNT (AUTO) 7.0 K/uL (4.8-10.8)
[2025-01-12 04:16] LABS: ASPARTATE AMINOTRANSFERASE 15.0 U/L (10-37); CREATININE 1.0 mg/dL (0.5-1.0); GLOMERULAR FILTR. RATE CALC 63.0 mL/min (>90); GLUCOSE,RANDOM 147.0 mg/dL (70-105); SODIUM SERUM 145.0 mmol/L (136-145); TOTAL PROTEIN, SERUM 5.6 g/dL (6.0-8.3); UREA NITROGEN, BLOOD 22.0 mg/dL (7-18)
--- NOTE | 2025-01-12 05:57 | PN ---
INFECTIOUS DISEASE FOLLOWUP NOTE DATE OF SERVICE: 01/11/2025 SUBJECTIVE: The patient is seen at the bedside today. No fever. No chills. No nausea or vomiting. No abdominal pain. ____ pain to the right leg. No cough. No shortness of breath. No dysuria or frequency. No bleeding tendency. No rashes or itchiness. PHYSICAL EXAMINATION: VITAL SIGNS: Temperature 98.6. EYES: No icterus. Pupils equal and reactive. HENT: No oral thrush seen. Moist oral mucosa. NECK: Supple. No JVD or thyromegaly. LUNGS: Good air entry. No rales, no rhonchi. CARDIOVASCULAR: S1, S2, regular. No murmur heard. ABDOMEN: Obese, soft, nontender. Bowel sounds present. CENTRAL NERVOUS SYSTEM: Awake, alert, oriented x 3. No focal deficits. SKIN: No rashes, no itchiness. LYMPHATIC: There is bilateral inguinal lymphadenopathy. BACK: No deformity, no pressure ulcer. EXTREMITIES: Ulcer and necrosis involving both lower extremities. ASSESSMENT: A 64-year-old female admitted with shortness of breath. Current problems include; * Bilateral pulmonary embolus, status post thrombectomy. * Left leg ulcer. * Right leg ulcer. * Polymicrobial wound. * Morbid obesity. * Congestive heart failure. * Obstructive sleep apnea. PLAN: * Continue wound care. * Continue diuretics. * Continue Eliquis. * Continue pain management. * Continuous CPAP. * Continue Zosyn. * Continue telemetry. TID: [id number] RECEIPT: [id number]
--- NOTE | 2025-01-12 10:03 | PN ---
[facility] PROGRESS NOTE Date Patient Seen: Jan 12, 2025 Time of Visit: 10:00 Supervising Physician: Dr Dalton Nolan] Primary Care Physician: VINCE HASSAN MD Outpatient Specialists: [ ] Inpatient Consults: [facility]URE[facility] PROBLEM LIST: Acute on chronic hypercarbic hypoxemic respiratory failure Acute bilateral PE present on admission: Unprovoked Status post bilateral embolectomy 01/03/2025 Acute non-STEMI on admission Acute DVT to the left lower extremity Compression fracture of the T12 vertebral body Chronic venous stasis of the lower extremities bilaterally Bilateral Pseudomonas cellulitis of lower extremities Cellulitis of the lower extremities bilaterally Mild pulmonary hypertension Morbid obesity:BMI 36 Obstructive sleep apnea Hypertension Chronic kidney disease stage 3 -HFpEF (LVEF: 60-65% by echo done 12/10/2024) s/p CardioMEMS insertion INTERVAL HISTORY: Patient seen and examined, patient awake alert and oriented, patient is sitting comfortably in bed Nursing reports no acute events overnight, patient afebrile, tolerating nasal cannula 2 L good saturations No fevers, her heart rates been in the low 90s, blood pressure 125/81 this morning Tolerating her diet He continues to diurese Continues on the Eliquis Continues on antibiotics for Pseudomonas continues on Zosyn Plan: Midline for continued antibiotics, following ID recs Case management is working on placement Supplemental O2 Follow cardiology recs Eliquis conversion Total time spent in the care of this patient greater than 38 minutes, this excludes any time spent on procedures teaching or education. REVIEW OF SYSTEMS: 12 points review of systems done; all pertinent information addressed. Otherwise, negative. PHYSICAL EXAM: GENERAL: alert, weak, awake oriented x 3, fatigue HEENT: EOMI, Sclera non icteric, moist mucosa NECK: History of thyroid mass, no JVD, trachea midline LUNGS: Decreased breath sounds bilaterally with fine crackles at the bases. No wheezing HEART: Regular rate and rhythm. Normal S1 and S2, without murmurs ABD: Abdomen soft, nontender. Bowel sounds present EXT: Bilateral lower extremity edema consistent with stasis, no cyanosis. NEURO: Alert and oriented to person, follows commands Vital Signs (last 8hr) Date Time Temp Pulse Resp B/P (MAP) Pulse Ox O2 Delivery O2 Flow Rate FiO2 01/12/25 08:00 98.8 98 20 125/81 98 Nasal Cannula 2.0 01/12/25 07:44 88 18 N/Cannula Low lpm 2.0 28 01/12/25 03:40 97.7 108 24 141/81 97 Room Air LABS: Hematology Labs: Test 01/12/25 03:24 Range/Units White Blood Count 7.0 4.8-10.8 K/uL Red Blood Count 3.75 L 4.00-5.50 MIL/uL Hemoglobin 10.2 L 12.0-16.0 g/dL Hematocrit 34.5 L 36-48 % Mean Corpuscular Volume 92.0 79-99 fL Mean Corpuscular Hemoglobin 27.2 27.0-33.0 pg Mean Corpuscular Hemoglobin Concent 29.6 L 32.0-36.0 g/dL Red Cell Distribution Width 15.5 11.0-15.5 % Platelet Count 269 130-400 K/uL Mean Platelet Volume 9.3 7.5-10.5 fL Immature Granulocyte % (Auto) 1.1 H 0-1 % Neutrophils (%) (Auto) 55.8 40.0-77.0 % Lymphocytes (%) (Auto) 30.0 21.0-51.0 % Monocytes (%) (Auto) 9.9 3.0-13.0 % Eosinophils (%) (Auto) 2.6 0.0-8.0 % Basophils (%) (Auto) 0.6 0.0-5.0 % Neutrophils # (Auto) 3.9 1.8-7.7 K/uL Lymphocytes # (Auto) 2.1 1.0-4.8 K/uL Monocytes # (Auto) 0.7 0.1-1.0 K/uL Eosinophils # (Auto) 0.18 0.00-0.70 K/uL Basophils # (Auto) 0.04 0.00-0.20 K/uL Absolute Immature Granulocyte (auto 0.08 0-1 K/uL Nucleated Red Blood Cells 0.0 0.0-0.19 % Red Blood Cell Morphology See comments Chemistry Labs: Test 01/12/25 06:02 01/12/25 03:24 01/10/25 19:41 Range/Units Whole Blood Glucose 122 H 70-110 MG/DL Sodium Level 145 136-145 mmol/L Potassium Level 3.5 3.5-5.1 mmol/L Chloride Level 101 101-111 mmol/L Carbon Dioxide Level 37 H 21-32 mmol/L Blood Urea Nitrogen 22 H 7-18 mg/dL Creatinine 1.0 0.5-1.0 mg/dL Glomerular Filtration Rate Calc 63 >90 mL/min Random Glucose 147 H 70-105 mg/dL Total Calcium 8.3 L 8.5-10.1 mg/dL Magnesium Level 1.90 1.80-2.40 mg/dL Total Bilirubin 0.3 0.2-1.0 mg/dL Aspartate Amino Transf (AST/SGOT) 15 10-37 U/L Alanine Aminotransferase (ALT/SGPT) 18 12-78 U/L Alkaline Phosphatase 69 50-136 U/L Total Protein 5.6 L 6.0-8.3 g/dL Albumin 2.4 L 3.5-5.0 g/dL Bedside Glucose Comment Notified Nurse Coagulation Labs: Test 01/11/25 13:48 Range/Units Prothrombin Time 11.7 H 9.6-11.6 SEC Prothromb Time International Ratio 1.12 0.85-1.15 Activated Partial Thromboplast Time 26.8 26.3-35.5 SEC DIAGNOSTICS / RADIOLOGY RESULTS: [ ] PLAN NEURO: Minimize central acting medications as possible. Maintain fall precautions, adequate lighting during the day PULMONARY: Supplemental 02 as needed. Maintain aspiration precautions at all times CARDIOVASCULAR: Follow hemodynamics. Vital signs per facility protocol GI & NUTRITION: Continue with nutritional support. Continue stool softeners and laxatives as needed. KIDNEYS & ELECTROLYTES: Strict monitoring of intake, output and overall fluid balance. Avoid nephrotoxic medications to the extent possible. Medications to be dosed according to renal function. Monitor electrolytes and replace as needed ENDOCRINE: Maintain blood glucose between 100-180 at all times. Hypoglycemia protocol in place INFECTIOUS DISEASE: Trend temperature, WBC and procalcitonin level Follow cultures, deescalate antibiotics as soon as possible. Panculture if new onset fever ONCOLOGY/HEMATOLOGY/COAGULATION: Monitor for s/s of bleeding Monitor hemoglobin, coagulation studies as needed SKIN: Pressure ulcer prevention per facility protocol Specialty mattress ORTHO/REHAB: Continue PT/OT Prophylaxis: Continue GI and DVT prophylaxis Code Status: Full Resuscitation Disposition: As per primary AVANI LANG PAC Jan 12, 2025 10:03
--- NOTE | 2025-01-12 12:24 | PN ---
[facility] PROGRESS NOTE Date of Service: Jan 12, 2025 Time of Service: 12:22 SUBJECTIVE: 01/04 Patient underwent pulmonary thrombectomy. Complications reported. Patient is resting comfortably in bedside chair. She reports postprocedure she is feeling better. Patient has been transitioned to Eliquis 01/05 patient is resting comfortably in bed. Yesterday the patient has complained of right sided rib pain and and right ankle pain. X-ray of the right ribs was negative for fracture and no pneumothorax. X-ray of the right ankle demonstrated calcaneal spur with inflammation of the surrounding tissue. Patient is undergoing home O2 evaluation, physical therapy evaluation 01/06 patient was seen by nurse practitioner and physician during rounding in room 231 lying in the bed. Nurse practitioner was able to speak to Dr. Manpreet Mac regarding the diuresis. We will discontinue Lasix IV and we will place patient on Bumex 1 mg p.o. b.i.d. starting today. We will monitor patient's blood pressure in the meantime. If tomorrow BP we will be stable we will add spironolactone 25 mg daily. Patient is also complaining of some cough. Robitussin we will be ordered. As per case management patient is refusing SNF. Patient would like to return home with her home health. 6 minute walk prior discharge was ordered. We will continue to monitor patient in the meantime. A.m. labs 01/07 patient was seen by CHILDCARE PROVIDER and physician. Patient's blood pressure has been holding up nicely most recent BP is 138/70 and the previous one was 118/82 at 7:50 a.m.. As per polishing machine operator helper request from day before we will add spironolactone 25 mg daily. Of the blood pressure will still hold up nicely patient to be discharged tomorrow. Patient already has an oxygen tank at home. Potassium magnesium to be replaced per protocol. Continue Eliquis 10 mg every 12 hours for total seven days and then follow with Eliquis 5 mg q.12 hours after that. Continue Aldactone 25 mg daily as per Cardiology. As per wound recommendation wound care to the right and left lower leg cleanse with normal saline, pat dry, apply Adaptic/Vaseline gauze to wound, cover with 4 x 4 gauze soaked with the Dakin's call with a gas, abdominal pad, wrap with Kerlix CK with tape change b.i.d. and PRN. He wounds clean and dry. Offloading repositioning q 2 hours. As per case management discharge planning is home with the [facility]. We will continue to monitor patient's blood pressure in the meantime. Anticipated discharge within 24 hours. A.m. labs 01/08 patient was seen by nurse practitioner and physician during rounding in room 231. Patient was cleared by polishing machine operator helper to be discharged home on Bumex 1 mg b.i.d. and spironolactone 20 five daily. Lasix was discontinued. Patient feels 6 minute walk but already has oxygen at home. We are still pending final wound culture. Once dose we will come back patient will be discharged home with [facility] and appropriate antibiotics. Patient to continue Eliquis 10 mg b.i.d. for total of seven days and then continue with 5 mg b.i.d. for at least 10 days. As per weight guesser continue prednisolone 20 mg daily. We will continue to monitor patient in the meantime. Labs. 01/09 patient was seen by CHILDCARE PROVIDER and physician. Patient's wound culture is growing Enterococcus faecalis and Pseudomonas aeruginosa. Final culture still pending. Patient will receive 2 g of magnesium and 40 mEq of potassium in the meantime. Patient is alert oriented x4 resting in the bed. Patient was also complaining of some chronic back pain. Tylenol with codeine was prescribed q.6 hours as needed. Nurse practitioner was also able to talk to the patient regarding recommendations of polishing machine operator helper to be discharged to cardiac rehab. Patient agreed with the further plan. Case management was consulted. We will continue to monitor patient in the meantime. A.m. labs 01/10 patient was seen by nurse practitioner and physician during rounding. Pat ient was sitting in the chair on 4 L nasal cannula. As per RN patient was just walking around the nursing station with a PCP and walker. Patient was short of breaths so decided to go back to room to take a break. Final wound culture is growing Enterococcus faecalis and Pseudomonas aeruginosa. As per susceptibility that came back today in a.m. patient will be placed on Augmentin 875 mg p.o. b.i.d. and levofloxacin 500 mg daily p.o. as of now. If patient will be accepted to facility we can switch antibiotics to ID. If patient will refused from SNF patient will go home on p.o. ABX. Continue Eliquis 10 mg p.o. b.i.d. for total of seven days and then switch to 5 mg b.i.d.. We will continue to monitor patient in the meantime. A.m. labs. 01/11 patient was seen by CHILDCARE PROVIDER and physician sitting in the chair at the bedside. As per RN patient has been ambulating around the nursing station. Patient alert oriented x4 on 4 L nasal cannula. Patient was evaluated by the wound care and at this moment they recommended right and left lower leg cleanse with normal saline, pat dry, apply Adaptic/Vaseline gauze to wound, covered with 4 x 4 gauze soaked with Dakin's covered with a gauze, abdominal pad, brought the Kerlix secure with tape change b.i.d. and PRN. Keep wounds clean and dry. Offloading/reposition q.2 hours. Continue antibiotics for Enterococcus faecalis and Pseudomonas aeruginosa with Augmentin 875 mg p.o. b.i.d. and levofloxacin 500 mg daily POA. Patient completed a course of total of seven days on Eliquis 10 mg b.i.d.. Patient will continue with Eliquis 5 mg b.i.d. starting today. Patient is pending cardiac rehab once insurance approved. We will continue to monitor patient in the meantime. A.m. labs 01/12 patient is seen and examined at bedside, discussed with the RN, no acute events overnight, sitting comfortable in chair, on 2 L nasal cannula, saturating 98%, denied chest pain, no shortness a breath, no nausea, no vomiting.Patient was evaluated by the wound care and at this moment they recommended right and left lower leg cleanse with normal saline, pat dry, apply Adaptic/Vaseline gauze to wound, covered with 4 x 4 gauze soaked with Dakin's covered with a gauze, abdominal pad, brought the Kerlix secure with tape change b.i.d. and PRN. Keep wounds clean and dry. Offloading/reposition q.2 hours. Continue antibiotics for Enterococcus faecalis and Pseudomonas aeruginosa with Augmentin 875 mg p.o. b.i.d. and levofloxacin 500 mg daily POA. Patient completed a course of total of seven days on Eliquis 10 mg b.i.d.. Patient will continue with Eliquis 5 mg b.i.d. starting today. Patient is pending cardiac rehab once insurance approved. We will continue to monitor patient in the meantime. Currently pending acceptance to retirement facility. REVIEW OF SYSTEMS CONSTITUTIONAL: Denies fevers, chills, or night sweats. No unintentional weight loss reported. NEUROLOGICAL: Denies headache, amaurosis fugax, motor weakness, sensory deficit, vertigo/spinning sensation, gait abnormalities, or tremors. ENT: No hearing loss, otalgia, otorrhea, rhinitis, rhinorrhea, hoarseness, or sore throat. CARDIOVASCULAR: Denies any chest pain, PULMONARY: Positive for shortness of breaths. Complains of cough GASTROINTESTINAL: Denies any type of dysphagia to either liquids or solids. Denies nausea, vomiting, pyrosis, early satiety, abdominal pain, diarrhea, constipation, or changes in stool consistency or caliber. Denies coffee-ground emesis, hematemesis, hematochezia, or melanotic stools. GENITOURINARY: Denies frequency, urgency, nocturia, hematuria or incontinence (Storage/Irritative symptoms.) Low urinary stream, straining to void, urinary intermittency or hesitancy, splitting of the voiding stream, terminal dribbling. ENDOCRINOLOGIC: Denies polyuria, polydipsia, polyphagia or heat/cold intolerances. HEMATOLOGIC: Denies thrombophilia/previous clots, or coagulopathy/bleeding disorders. ONCOLOGIC: Denies personal history of malignancy. DERMATOLOGIC: Denies rashes or pruritus. PSYCHIATRIC: Denies any suicidal or homicidal ideation. Denies hallucinations. PHYSICAL EXAM GENERAL APPEARANCE: The patient is awake, alert, and oriented, in no acute cardiopulmonary distress. Patient is unable to lie flat. She prefers to be in a seated position NEUROLOGICAL: Cranial nerves II-XII grossly intact. Motor is 5/5 in bilateral upper and lower extremities proximal to distal. No sensory deficits. HEENT: Face is symmetric. Pupils are equal and reactive. Extraocular movements are intact. NECK: Supple. No JVD. No thyromegaly. No submental, submandibular, pre- /postauricular, occipital or supraclavicular lymphadenopathy. CHEST: Normal chest expansion. No Telemetry. LUNGS: Absence of any rales, rhonchi or any wheezing. CARDIOVASCULAR: Regular. S1 and S2 normal. No appreciable rubs, murmurs or gallops. ABDOMEN: Soft, nontender, and nondistended. There is no rebound, voluntary guarding, or rigidity. : Deferred. No Schuler. EXTREMITIES: Erythema in the lower extremity bilaterally with pitting edema. She has a wound noted in the left lower extremity. Currently has a dressing present. SKIN: No skin breakdown. Vital Signs (last 8hr) Date Time Temp Pulse Resp B/P (MAP) Pulse Ox O2 Delivery O2 Flow Rate FiO2 01/12/25 11:41 18 N/Cannula Low lpm 2.0 28 01/12/25 08:00 98.8 98 20 125/81 98 Nasal Cannula 2.0 01/12/25 07:44 88 18 N/Cannula Low lpm 2.0 28 LABS: Laboratory: Test 01/12/25 11:21 01/12/25 03:24 01/11/25 13:48 01/10/25 19:41 Range/Units Whole Blood Glucose 136 H 70-110 MG/DL White Blood Count 7.0 4.8-10.8 K/uL Red Blood Count 3.75 L 4.00-5.50 MIL/uL Hemoglobin 10.2 L 12.0-16.0 g/dL Hematocrit 34.5 L 36-48 % Mean Corpuscular Volume 92.0 79-99 fL Mean Corpuscular Hemoglobin 27.2 27.0-33.0 pg Mean Corpuscular Hemoglobin Concent 29.6 L 32.0-36.0 g/dL Red Cell Distribution Width 15.5 11.0-15.5 % Platelet Count 269 130-400 K/uL Mean Platelet Volume 9.3 7.5-10.5 fL Immature Granulocyte % (Auto) 1.1 H 0-1 % Neutrophils (%) (Auto) 55.8 40.0-77.0 % Lymphocytes (%) (Auto) 30.0 21.0-51.0 % Monocytes (%) (Auto) 9.9 3.0-13.0 % Eosinophils (%) (Auto) 2.6 0.0-8.0 % Basophils (%) (Auto) 0.6 0.0-5.0 % Neutrophils # (Auto) 3.9 1.8-7.7 K/uL Lymphocytes # (Auto) 2.1 1.0-4.8 K/uL Monocytes # (Auto) 0.7 0.1-1.0 K/uL Eosinophils # (Auto) 0.18 0.00-0.70 K/uL Basophils # (Auto) 0.04 0.00-0.20 K/uL Absolute Immature Granulocyte (auto 0.08 0-1 K/uL Nucleated Red Blood Cells 0.0 0.0-0.19 % Red Blood Cell Morphology See comments Sodium Level 145 136-145 mmol/L Potassium Level 3.5 3.5-5.1 mmol/L Chloride Level 101 101-111 mmol/L Carbon Dioxide Level 37 H 21-32 mmol/L Blood Urea Nitrogen 22 H 7-18 mg/dL Creatinine 1.0 0.5-1.0 mg/dL Glomerular Filtration Rate Calc 63 >90 mL/min Random Glucose 147 H 70-105 mg/dL Total Calcium 8.3 L 8.5-10.1 mg/dL Magnesium Level 1.90 1.80-2.40 mg/dL Total Bilirubin 0.3 0.2-1.0 mg/dL Aspartate Amino Transf (AST/SGOT) 15 10-37 U/L Alanine Aminotransferase (ALT/SGPT) 18 12-78 U/L Alkaline Phosphatase 69 50-136 U/L Total Protein 5.6 L 6.0-8.3 g/dL Albumin 2.4 L 3.5-5.0 g/dL Prothrombin Time 11.7 H 9.6-11.6 SEC Prothromb Time International Ratio 1.12 0.85-1.15 Activated Partial Thromboplast Time 26.8 26.3-35.5 SEC Bedside Glucose Comment Notified Nurse Current Medications Medications (Trade) Dose Ordered Sig/Ashanti Route PRN Reason Start Time Stop Time Status Last Admin Dose Admin Acetaminophen (TYLenol 500MG TAB) 500 mg Q6H PRN PO MILD PAIN (1-3) 01/02/25 14:30 02/01/25 14:29 Acetaminophen/ Codeine Phosphate (TYLenol-coDEINE TAB) 1 tab Q6H PRN PO MODERATE PAIN (4-6) 01/03/25 07:00 01/03/25 23:15 DC Acetaminophen/ Codeine Phosphate (TYLenol-coDEINE TAB) 2 tab Q6H PRN PO MODERATE PAIN (4-6) 01/09/25 10:00 02/08/25 09:59 01/11/25 23:36 2 TAB Amoxicillin/ Clavulanate Potassium (Augmentin 875-125 Tablet) 1 each Q12H PO 01/10/25 10:00 01/10/25 14:44 DC 01/10/25 10:01 1 EACH Apixaban (EliquIS) 5 mg BID PO 01/11/25 09:00 02/10/25 08:59 01/12/25 10:28 5 MG Apixaban (EliquIS) 10 mg BID PO 01/03/25 21:00 01/10/25 23:00 DC 01/10/25 20:01 10 MG Atorvastatin Calcium (LIPItor 10MG) 10 mg DAILY PO 01/03/25 09:00 01/05/25 08:34 DC 01/04/25 10:53 10 MG Atorvastatin Calcium (LIPItor 10MG) 10 mg HS PO 01/05/25 21:00 02/02/25 08:59 01/11/25 20:24 10 MG Baclofen (Baclofen) 5 mg TID PRN PO Back Pain 01/05/25 09:00 02/02/25 06:59 01/11/25 03:48 5 MG Baclofen (Baclofen) 5 mg TIDP PRN PO Back Pain 01/03/25 07:00 01/05/25 08:35 DC 01/04/25 20:08 5 MG Bumetanide (Bumex 1mg Tab) 1 mg BID PO 01/06/25 21:00 02/05/25 20:59 01/12/25 10:28 1 MG Ceftriaxone Sodium (ROCEphine 1G INJ) 1 gm Q24H IVPB 01/02/25 15:00 01/02/25 15:19 DC Ceftriaxone Sodium (Rocephin 2gm Inj) 2 gm Q24H IVPB 01/03/25 16:00 01/10/25 09:39 DC 01/09/25 16:32 2 GM Dextrose (D50w) 50 ml AD PRN IV HYPOGLYCEMIA PROTOCOL 01/02/25 19:30 02/01/25 19:29 Famotidine (Pepcid 20mg Vial) 20 mg Q24H IV 01/02/25 21:00 01/04/25 10:03 DC 01/03/25 20:29 20 MG Furosemide (LASix 20MG TAB) 20 mg DAILY PO 01/06/25 09:00 01/06/25 16:32 DC 01/06/25 07:59 20 MG Furosemide (LASix 20MG VIAL) 20 mg Q8H IV 01/04/25 19:30 01/05/25 09:04 DC 01/05/25 03:03 20 MG Glucagon (Glucagon 1mg Kit) 1 mg AD PRN IM HYPOGLYCEMIA PROTOCOL 01/02/25 19:30 02/01/25 19:29 Guaifenesin/ Dextromethorphan (RobiTUSSin DM 200/20MG 10ML) 5 ml Q4H PRN PO COUGH 01/06/25 16:30 02/05/25 16:29 01/09/25 17:10 5 ML Heparin Sodium (Porcine) (HEParin 5,000 UNIT VIAL) *calculation based on ACTUAL B... AD PRN IV HEPARIN PROTOCOL 01/02/25 15:00 01/03/25 21:00 DC Heparin Sodium/ Dextrose 250 ml @ 0 mls/hr Q6H IV 01/02/25 15:00 01/03/25 21:00 DC 01/03/25 09:29 0 MLS/HR Hydromorphone HCl (DiLAUDid 0.5MG INJ) 0.2 mg Q4H PRN IVP SEVERE PAIN (7-10) 01/03/25 23:30 01/08/25 23:29 DC 01/08/25 21:06 0.2 MG Insulin Human Regular (humuLIN R 100 UNIT/ML 3ML) INSULIN SLIDING SCAL... ACHS SQ 01/02/25 21:00 02/01/25 20:59 01/10/25 20:23 6 UNIT Ketorolac Tromethamine (toRADol) 15 mg Q6H PRN IV MODERATE PAIN (4-6) 01/11/25 11:30 01/16/25 11:29 01/12/25 07:22 15 MG Levofloxacin (LEvaquIN 500MG TAB) 500 mg DAILY PO 01/11/25 09:00 01/10/25 14:44 DC Magnesium Sulfate 50 ml @ 0 mls/hr PROTOCOL IV 01/07/25 09:30 01/09/25 06:37 DC 01/08/25 04:56 25 MLS/HR Magnesium Sulfate 50 ml @ 0 mls/hr PROTOCOL IV 01/09/25 06:30 02/08/25 06:29 01/11/25 07:14 25 MLS/HR Magnesium Sulfate 50 ml @ 0 mls/hr PROTOCOL PRN IV hypomagnesemia 01/02/25 14:30 01/07/25 09:24 DC Metoprolol Tartrate (loprESSOR) 25 mg BID PO 01/03/25 14:00 01/04/25 07:17 DC 01/03/25 20:29 25 MG Pantoprazole Sodium (PROTonix 40MG INJ) 40 mg BID IVP 01/04/25 21:00 01/12/25 10:07 DC 01/11/25 20:24 40 MG Pantoprazole Sodium (PROTonix 40MG TAB) 40 mg DAILY PO 01/03/25 09:00 01/04/25 10:02 DC 01/03/25 09:14 40 MG Pantoprazole Sodium (PROTonix 40MG TAB) 40 mg DAILY PO 01/13/25 09:00 02/12/25 08:59 Piperacillin Sod/ Tazobactam Sod (Zosyn 3.375gm+NS 50ml) 3.375 gm Q8H IV 01/10/25 20:00 01/20/25 19:59 01/12/25 04:11 3.375 GM Potassium Chloride 100 ml @ 100 mls/hr AD PRN IV POTASSIUM PROTOCOL 01/02/25 14:30 02/01/25 14:29 Potassium Chloride (K-Dur/Klor-Con 20meq) 20 meq AD PRN PO POTASSIUM PROTOCOL 01/02/25 14:30 02/01/25 14:29 01/12/25 07:08 20 MEQ Potassium Chloride (KCl 10% Elixir 20meq/15ml) 20 meq AD PRN PO POTASSIUM PROTOCOL 01/02/25 14:30 02/01/25 14:29 Pramipexole Dihydrochloride (miraPEX 0.25MG TAB) 0.5 mg HS PO 01/03/25 21:00 02/02/25 20:59 01/11/25 20:24 0.5 MG Prednisone (deltaSONE/ oraSONE 20MG TAB) 20 mg DAILY PO 01/05/25 09:30 01/10/25 09:29 DC 10/18/25 10:02 20 MG Sodium Hypochlorite (Dakin'S 0.25% Half Strength) 1 APPL BID TP 01/05/25 21:00 02/04/25 20:59 01/11/25 20:25 1 APPL Sodium Chloride 1,000 ml @ 150 mls/hr Q6H40M IV 01/02/25 19:30 01/02/25 23:29 DC 01/02/25 19:48 150 MLS/HR Spironolactone (Aldactone 25mg) 25 mg DAILY PO 01/07/25 10:00 02/06/25 09:59 01/12/25 10:28 25 MG Terbinafine HCl (Lamisil) 250 mg DAILY PO 01/03/25 09:00 02/02/25 08:59 01/12/25 10:27 250 MG Tramadol HCl (UltRAM) 50 mg Q6H PRN PO MODERATE PAIN (4-6) 01/03/25 23:30 01/08/25 23:29 DC 01/08/25 23:22 50 MG DIAGNOSTICS / RADIOLOGY: [ ] ASSESSMENT: Bilateral PE POA Acute on chronic hypoxic respiratory failure secondary to PE Troponin elevation likely in setting of PE Lower back pain MRI showing chronic compression fracture of T12 vertebrae 12/16/2024 Acute diastolic congestive heart failure Bilateral lower extremity edema with chronic wound History of venous stasis History of Pulmonary hypertension History of CardioMEMS device loose Obesity Obstructive sleep apnea Hypertension Hyperlipidemia CKD stage 3 Right ankle calcaneal spur, POA PLAN: patient is seen and examined at bedside, discussed with the RN, no acute events overnight, sitting comfortable in chair, on 2 L nasal cannula, saturating 98%, denied chest pain, no shortness a breath, no nausea, no vomiting.Patient was evaluated by the wound care and at this moment they recommended right and left lower leg cleanse with normal saline, pat dry, apply Adaptic/Vaseline gauze to wound, covered with 4 x 4 gauze soaked with Dakin's covered with a gauze, abdominal pad, brought the Kerlix secure with tape change b.i.d. and PRN. Keep wounds clean and dry. Offloading/reposition q.2 hours. Continue antibiotics for Enterococcus faecalis and Pseudomonas aeruginosa with Augmentin 875 mg p.o. b.i.d. and levofloxacin 500 mg daily POA. Patient completed a course of total of seven days on Eliquis 10 mg b.i.d.. Patient will continue with Eliquis 5 mg b.i.d. starting today. Patient is pending cardiac rehab once insurance approve d. We will continue to monitor patient in the meantime. Currently pending acceptance to retirement facility. NEURO: Minimize central acting medications as possible. Fall Precautions. Well lighted room through the day and minimize interruptions through the night to prevent acute delirium. PULMONARY: Supplemental 02 as needed BiPAP as necessary, for respiratory distress Titrate Fio2 to keep Spo2 > or = 90% DuoNebs and CPT as needed IS hourly while awake for pulmonary hygiene prn Out of bed to chair as tolerated Maintain aspiration precautions at all times CARDIOVASCULAR: Follow hemodynamics. Vital signs per facility protocol GI & NUTRITION: Continue nutritional support Aspirations precautions Prokinetic agents and laxatives as needed KIDNEYS & ELECTROLYTES: Strict monitoring of intake and output Daily weights Avoid nephrotoxic agents Monitor electrolytes and replace as needed Goal urine output of 30mL/hr or 0.5mL/kg/hr Medications to be dosed according to renal function. Avoid contrast if possible ENDOCRINE: Maintain blood glucose between 100-180 at all times. Insulin sliding scale for blood glucose management Hypoglycemia and hyperglycemia protocol in place INFECTIOUS DISEASE: Trend temperature, WBC and procalcitonin level Follow cultures, deescalate antibiotics as soon as possible. Panculture if new onset fever HEMATOLOGY & COAGULATION: Monitor H&H. Keep Hgb > 7 Transfuse 1 unit of PRBC for Hgb < 7 Transfuse 1 pack of platelets of platelets < 20, 000 Watch for any signs and symptoms of bleeding SKIN: Pressure ulcer prevention per facility protocol Specialty mattress as needed ORTHO/REHAB Continue PT/OT PRN: MEDICATIONS Tylenol 650 mg po every 4 hrs for fever zofran 4 mg IV every 6 hrs for n/v Hydralazine 5 mg IV every 4 hrs systolic pressure > 160 bowel regiment: lactulose 20 gm PO BID PRN constipation Supportive measures: Continue GI and DVT prophylaxis Disposition: Pending acceptance to retirement facility All questions answered time spent: > 35 min KAYLEIGH LANIER MD Jan 12, 2025 12:24
[2025-01-12] MEDS ORDERED: DIPHENOXYLATE HCL/ATROPINE 2.5/0.025 MG TAB PO ONE (17:30)
[2025-01-12] MEDS: LOPERAMIDE HCL 2 MG CAP PO ONE (17:36)
[2025-01-13] VITALS (10 sets, daily range): BP systolic 115–148; BP diastolic 65–98; PULSE 87–118; RESP 18–24; TEMP 97.8–98.9; O2SAT 94–97
[2025-01-13 05:11] LABS: NUCLEATED RED BLOOD CELLS 0.0 % (0.0-0.19); PLATELET COUNT (AUTO) 284.0 K/uL (130-400); RED BLOOD CELL COUNT(AUTO) 4.0 MIL/uL (4.00-5.50); RED CELL DISTRIBUTION WIDTH 15.3 % (11.0-15.5); WHITE BLOOD COUNT (AUTO) 6.9 K/uL (4.8-10.8)
[2025-01-13 05:39] LABS: ASPARTATE AMINOTRANSFERASE 19.0 U/L (10-37); CREATININE 1.2 mg/dL (0.5-1.0); GLOMERULAR FILTR. RATE CALC 51.0 mL/min (>90); GLUCOSE,RANDOM 136.0 mg/dL (70-105); SODIUM SERUM 144.0 mmol/L (136-145); TOTAL PROTEIN, SERUM 6.2 g/dL (6.0-8.3); UREA NITROGEN, BLOOD 17.0 mg/dL (7-18)
[2025-01-13] MEDS: PoTASSium chloRIDE 20MEQ ER 20 MEQ ERTAB PO ONE (09:58)
--- NOTE | 2025-01-13 12:36 | PN ---
[facility] PROGRESS NOTE Date of Service: Jan 13, 2025 Time of Service: 12:34 SUBJECTIVE: 01/04 Patient underwent pulmonary thrombectomy. Complications reported. Patient is resting comfortably in bedside chair. She reports postprocedure she is feeling better. Patient has been transitioned to Eliquis 01/05 patient is resting comfortably in bed. Yesterday the patient has complained of right sided rib pain and and right ankle pain. X-ray of the right ribs was negative for fracture and no pneumothorax. X-ray of the right ankle demonstrated calcaneal spur with inflammation of the surrounding tissue. Patient is undergoing home O2 evaluation, physical therapy evaluation 01/06 patient was seen by nurse practitioner and physician during rounding in room 231 lying in the bed. Nurse practitioner was able to speak to Dr. Manpreet Mac regarding the diuresis. We will discontinue Lasix IV and we will place patient on Bumex 1 mg p.o. b.i.d. starting today. We will monitor patient's blood pressure in the meantime. If tomorrow BP we will be stable we will add spironolactone 25 mg daily. Patient is also complaining of some cough. Robitussin we will be ordered. As per case management patient is refusing SNF. Patient would like to return home with her home health. 6 minute walk prior discharge was ordered. We will continue to monitor patient in the meantime. A.m. labs 01/07 patient was seen by MRI TECH and physician. Patient's blood pressure has been holding up nicely most recent BP is 138/70 and the previous one was 118/82 at 7:50 a.m.. As per snapper on request from day before we will add spironolactone 25 mg daily. Of the blood pressure will still hold up nicely patient to be discharged tomorrow. Patient already has an oxygen tank at home. Potassium magnesium to be replaced per protocol. Continue Eliquis 10 mg every 12 hours for total seven days and then follow with Eliquis 5 mg q.12 hours after that. Continue Aldactone 25 mg daily as per Cardiology. As per wound recommendation wound care to the right and left lower leg cleanse with normal saline, pat dry, apply Adaptic/Vaseline gauze to wound, cover with 4 x 4 gauze soaked with the Dakin's call with a gas, abdominal pad, wrap with Kerlix CK with tape change b.i.d. and PRN. He wounds clean and dry. Offloading repositioning q 2 hours. As per case management discharge planning is home with the [facility]. We will continue to monitor patient's blood pressure in the meantime. Anticipated discharge within 24 hours. A.m. labs 01/08 patient was seen by nurse practitioner and physician during rounding in room 231. Patient was cleared by snapper on to be discharged home on Bumex 1 mg b.i.d. and spironolactone 20 five daily. Lasix was discontinued. Patient feels 6 minute walk but already has oxygen at home. We are still pending final wound culture. Once dose we will come back patient will be discharged home with [facility] and appropriate antibiotics. Patient to continue Eliquis 10 mg b.i.d. for total of seven days and then continue with 5 mg b.i.d. for at least 10 days. As per slubber operator continue prednisolone 20 mg daily. We will continue to monitor patient in the meantime. Labs. 01/09 patient was seen by MRI TECH and physician. Patient's wound culture is growing Enterococcus faecalis and Pseudomonas aeruginosa. Final culture still pending. Patient will receive 2 g of magnesium and 40 mEq of potassium in the meantime. Patient is alert oriented x4 resting in the bed. Patient was also complaining of some chronic back pain. Tylenol with codeine was prescribed q.6 hours as needed. Nurse practitioner was also able to talk to the patient regarding recommendations of snapper on to be discharged to cardiac rehab. Patient agreed with the further plan. Case management was consulted. We will continue to monitor patient in the meantime. A.m. labs 01/10 patient was seen by nurse practitioner and physician during rounding. Pat ient was sitting in the chair on 4 L nasal cannula. As per RN patient was just walking around the nursing station with a PCP and walker. Patient was short of breaths so decided to go back to room to take a break. Final wound culture is growing Enterococcus faecalis and Pseudomonas aeruginosa. As per susceptibility that came back today in a.m. patient will be placed on Augmentin 875 mg p.o. b.i.d. and levofloxacin 500 mg daily p.o. as of now. If patient will be accepted to facility we can switch antibiotics to ID. If patient will refused from SNF patient will go home on p.o. ABX. Continue Eliquis 10 mg p.o. b.i.d. for total of seven days and then switch to 5 mg b.i.d.. We will continue to monitor patient in the meantime. A.m. labs. 01/11 patient was seen by MRI TECH and physician sitting in the chair at the bedside. As per RN patient has been ambulating around the nursing station. Patient alert oriented x4 on 4 L nasal cannula. Patient was evaluated by the wound care and at this moment they recommended right and left lower leg cleanse with normal saline, pat dry, apply Adaptic/Vaseline gauze to wound, covered with 4 x 4 gauze soaked with Dakin's covered with a gauze, abdominal pad, brought the Kerlix secure with tape change b.i.d. and PRN. Keep wounds clean and dry. Offloading/reposition q.2 hours. Continue antibiotics for Enterococcus faecalis and Pseudomonas aeruginosa with Augmentin 875 mg p.o. b.i.d. and levofloxacin 500 mg daily POA. Patient completed a course of total of seven days on Eliquis 10 mg b.i.d.. Patient will continue with Eliquis 5 mg b.i.d. starting today. Patient is pending cardiac rehab once insurance approved. We will continue to monitor patient in the meantime. A.m. labs 01/12 patient is seen and examined at bedside, discussed with the RN, no acute events overnight, sitting comfortable in chair, on 2 L nasal cannula, saturating 98%, denied chest pain, no shortness a breath, no nausea, no vomiting.Patient was evaluated by the wound care and at this moment they recommended right and left lower leg cleanse with normal saline, pat dry, apply Adaptic/Vaseline gauze to wound, covered with 4 x 4 gauze soaked with Dakin's covered with a gauze, abdominal pad, brought the Kerlix secure with tape change b.i.d. and PRN. Keep wounds clean and dry. Offloading/reposition q.2 hours. Continue antibiotics for Enterococcus faecalis and Pseudomonas aeruginosa with Augmentin 875 mg p.o. b.i.d. and levofloxacin 500 mg daily POA. Patient completed a course of total of seven days on Eliquis 10 mg b.i.d.. Patient will continue with Eliquis 5 mg b.i.d. starting today. Patient is pending cardiac rehab once insurance approved. We will continue to monitor patient in the meantime. Currently pending acceptance to nursing home facility. 01/13 PATIENT IS SEEN AND EXAMINED AT BEDSIDE, DISCUSSED WITH THE RN, NO ACUTE EVENTS OVERNIGHT, PATIENT HAVING LOOSE STOOL SINCE YESTERDAY, BUT NO NAUSEA, NO VOMITING, NO ABDOMINAL DISCOMFORT. DISCHARGE CURRENTLY ON HOLD PENDING IMPROVEMENT IN CLINICAL CONDITION, WE WILL ADD LACTOBACILLUS ONE CAPSULE P.O. B.I.D.. WE WILL ORDER STOOL STUDIES. DISCUSSED WITH THE PATIENT, AND AT BEDSIDE, IN AGREEMENT. REVIEW OF SYSTEMS CONSTITUTIONAL: Denies fevers, chills, or night sweats. No unintentional weight loss reported. NEUROLOGICAL: Denies headache, amaurosis fugax, motor weakness, sensory deficit, vertigo/spinning sensation, gait abnormalities, or tremors. ENT: No hearing loss, otalgia, otorrhea, rhinitis, rhinorrhea, hoarseness, or sore throat. CARDIOVASCULAR: Denies any chest pain, PULMONARY: Positive for shortness of breaths. Complains of cough GASTROINTESTINAL: Denies any type of dysphagia to either liquids or solids. Denies nausea, vomiting, pyrosis, early satiety, abdominal pain, diarrhea, constipation, or changes in stool consistency or caliber. Denies coffee-ground emesis, hematemesis, hematochezia, or melanotic stools. GENITOURINARY: Denies frequency, urgency, nocturia, hematuria or incontinence (Storage/Irritative symptoms.) Low urinary stream, straining to void, urinary intermittency or hesitancy, splitting of the voiding stream, terminal dribbling. ENDOCRINOLOGIC: Denies polyuria, polydipsia, polyphagia or heat/cold intolerances. HEMATOLOGIC: Denies thrombophilia/previous clots, or coagulopathy/bleeding disorders. ONCOLOGIC: Denies personal history of malignancy. DERMATOLOGIC: Denies rashes or pruritus. PSYCHIATRIC: Denies any suicidal or homicidal ideation. Denies hallucinations. PHYSICAL EXAM GENERAL APPEARANCE: The patient is awake, alert, and oriented, in no acute cardiopulmonary distress. Patient is unable to lie flat. She prefers to be in a seated position NEUROLOGICAL: Cranial nerves II-XII grossly intact. Motor is 5/5 in bilateral upper and lower extremities proximal to distal. No sensory deficits. HEENT: Face is symmetric. Pupils are equal and reactive. Extraocular movements are intact. NECK: Supple. No JVD. No thyromegaly. No submental, submandibular, pre-/postauricular, occipital or supraclavicular lymphadenopathy. CHEST: Normal chest expansion. No Telemetry. LUNGS: Absence of any rales, rhonchi or any wheezing. CARDIOVASCULAR: Regular. S1 and S2 normal. No appreciable rubs, murmurs or gallops. ABDOMEN: Soft, nontender, and nondistended. There is no rebound, voluntary guarding, or rigidity. : Deferred. No Schuler. EXTREMITIES: Erythema in the lower extremity bilaterally with pitting edema. She has a wound noted in the left lower extremity. Currently has a dressing present. SKIN: No skin breakdown. Vital Signs (last 8hr) Date Time Temp Pulse Resp B/P (MAP) Pulse Ox O2 Delivery O2 Flow Rate FiO2 01/13/25 11:00 98.2 92 22 115/80 95 Nasal Cannula 2.0 01/13/25 07:48 88 18 N/Cannula Low lpm 2.0 28 01/13/25 07:00 98.1 118 22 148/98 94 Nasal Cannula 2.0 LABS: Laboratory: Test 01/13/25 11:00 01/13/25 04:54 01/12/25 03:24 01/11/25 13:48 Range/Units Whole Blood Glucose 150 H 70-110 MG/DL Bedside Glucose Comment Notified Nurse White Blood Count 6.9 4.8-10.8 K/uL Red Blood Count 4.00 4.00-5.50 MIL/uL Hemoglobin 10.8 L 12.0-16.0 g/dL Hematocrit 35.5 L 36-48 % Mean Corpuscular Volume 88.8 79-99 fL Mean Corpuscular Hemoglobin 27.0 27.0-33.0 pg Mean Corpuscular Hemoglobin Concent 30.4 L 32.0-36.0 g/dL Red Cell Distribution Width 15.3 11.0-15.5 % Platelet Count 284 130-400 K/uL Mean Platelet Volume 9.7 7.5-10.5 fL Nucleated Red Blood Cells 0.0 0.0-0.19 % Sodium Level 144 136-145 mmol/L Potassium Level 3.3 L 3.5-5.1 mmol/L Chloride Level 99 L 101-111 mmol/L Carbon Dioxide Level 35 H 21-32 mmol/L Blood Urea Nitrogen 17 7-18 mg/dL Creatinine 1.2 H 0.5-1.0 mg/dL Glomerular Filtration Rate Calc 51 >90 mL/min Random Glucose 136 H 70-105 mg/dL Total Calcium 8.9 8.5-10.1 mg/dL Magnesium Level 1.70 L 1.80-2.40 mg/dL Total Bilirubin 0.5 0.2-1.0 mg/dL Aspartate Amino Transf (AST/SGOT) 19 10-37 U/L Alanine Aminotransferase (ALT/SGPT) 23 12-78 U/L Alkaline Phosphatase 76 50-136 U/L Total Protein 6.2 6.0-8.3 g/dL Albumin 2.7 L 3.5-5.0 g/dL Immature Granulocyte % (Auto) 1.1 H 0-1 % Neutrophils (%) (Auto) 55.8 40.0-77.0 % Lymphocytes (%) (Auto) 30.0 21.0-51.0 % Monocytes (%) (Auto) 9.9 3.0-13.0 % Eosinophils (%) (Auto) 2.6 0.0-8.0 % Basophils (%) (Auto) 0.6 0.0-5.0 % Neutrophils # (Auto) 3.9 1.8-7.7 K/uL Lymphocytes # (Auto) 2.1 1.0-4.8 K/uL Monocytes # (Auto) 0.7 0.1-1.0 K/uL Eosinophils # (Auto) 0.18 0.00-0.70 K/uL Basophils # (Auto) 0.04 0.00-0.20 K/uL Absolute Immature Granulocyte (auto 0.08 0-1 K/uL Red Blood Cell Morphology See comments Prothrombin Time 11.7 H 9.6-11.6 SEC Prothromb Time International Ratio 1.12 0.85-1.15 Activated Partial Thromboplast Time 26.8 26.3-35.5 SEC Current Medications Medications (Trade) Dose Ordered Sig/Ashanti Route PRN Reason Start Time Stop Time Status Last Admin Dose Admin Acetaminophen (TYLenol 500MG TAB) 500 mg Q6H PRN PO MILD PAIN (1-3) 01/02/25 14:30 02/01/25 14:29 Acetaminophen/ Codeine Phosphate (TYLenol-coDEINE TAB) 1 tab Q6H PRN PO MODERATE PAIN (4-6) 01/03/25 07:00 01/03/25 23:15 DC Acetaminophen/ Codeine Phosphate (TYLenol-coDEINE TAB) 2 tab Q6H PRN PO MODERATE PAIN (4-6) 01/09/25 10:00 02/08/25 09:59 01/11/25 23:36 2 TAB Amoxicillin/ Clavulanate Potassium (Augmentin 875-125 Tablet) 1 each Q12H PO 01/10/25 10:00 01/10/25 14:44 DC 01/10/25 10:01 1 EACH Apixaban (EliquIS) 5 mg BID PO 01/11/25 09:00 02/10/25 08:59 01/13/25 09:22 5 MG Apixaban (EliquIS) 10 mg BID PO 01/03/25 21:00 01/10/25 23:00 DC 01/10/25 20:01 10 MG Atorvastatin Calcium (LIPItor 10MG) 10 mg DAILY PO 01/03/25 09:00 01/05/25 08:34 DC 01/04/25 10:53 10 MG Atorvastatin Calcium (LIPItor 10MG) 10 mg HS PO 01/05/25 21:00 02/02/25 08:59 01/12/25 20:35 10 MG Baclofen (Baclofen) 5 mg TID PRN PO Back Pain 01/05/25 09:00 02/02/25 06:59 01/11/25 03:48 5 MG Baclofen (Baclofen) 5 mg TIDP PRN PO Back Pain 01/03/25 07:00 01/05/25 08:35 DC 01/04/25 20:08 5 MG Bumetanide (Bumex 1mg Tab) 1 mg BID PO 01/06/25 21:00 02/05/25 20:59 01/13/25 09:22 1 MG Ceftriaxone Sodium (ROCEphine 1G INJ) 1 gm Q24H IVPB 01/02/25 15:00 01/02/25 15:19 DC Ceftriaxone Sodium (Rocephin 2gm Inj) 2 gm Q24H IVPB 01/03/25 16:00 01/10/25 09:39 DC 01/09/25 16:32 2 GM Dextrose (D50w) 50 ml AD PRN IV HYPOGLYCEMIA PROTOCOL 01/02/25 19:30 02/01/25 19:29 Famotidine (Pepcid 20mg Vial) 20 mg Q24H IV 01/02/25 21:00 01/04/25 10:03 DC 01/03/25 20:29 20 MG Furosemide (LASix 20MG TAB) 20 mg DAILY PO 01/06/25 09:00 01/06/25 16:32 DC 01/06/25 07:59 20 MG Furosemide (LASix 20MG VIAL) 20 mg Q8H IV 01/04/25 19:30 01/05/25 09:04 DC 01/05/25 03:03 20 MG Glucagon (Glucagon 1mg Kit) 1 mg AD PRN IM HYPOGLYCEMIA PROTOCOL 01/02/25 19:30 02/01/25 19:29 Guaifenesin/ Dextromethorphan (RobiTUSSin DM 200/20MG 10ML) 5 ml Q4H PRN PO COUGH 01/06/25 16:30 02/05/25 16:29 01/09/25 17:10 5 ML Heparin Sodium (Porcine) (HEParin 5,000 UNIT VIAL) *calculation based on ACTUAL B... AD PRN IV HEPARIN PROTOCOL 01/02/25 15:00 01/03/25 21:00 DC Heparin Sodium/ Dextrose 250 ml @ 0 mls/hr Q6H IV 01/02/25 15:00 01/03/25 21:00 DC 01/03/25 09:29 0 MLS/HR Hydromorphone HCl (DiLAUDid 0.5MG INJ) 0.2 mg Q4H PRN IVP SEVERE PAIN (7-10) 01/03/25 23:30 01/08/25 23:29 DC 01/08/25 21:06 0.2 MG Insulin Human Regular (humuLIN R 100 UNIT/ML 3ML) INSULIN SLIDING SCAL... ACHS SQ 01/02/25 21:00 02/01/25 20:59 01/10/25 20:23 6 UNIT Ketorolac Tromethamine (toRADol) 15 mg Q6H PRN IV MODERATE PAIN (4-6) 01/11/25 11:30 01/16/25 11:29 01/13/25 10:20 15 MG Lactobacillus Rhamnosus ([facility]) 1 each BID PO 01/13/25 21:00 02/12/25 20:59 Levofloxacin (LEvaquIN 500MG TAB) 500 mg DAILY PO 01/11/25 09:00 01/10/25 14:44 DC Magnesium Sulfate 50 ml @ 0 mls/hr PROTOCOL IV 01/07/25 09:30 01/09/25 06:37 DC 01/08/25 04:56 25 MLS/HR Magnesium Sulfate 50 ml @ 0 mls/hr PROTOCOL IV 01/09/25 06:30 01/13/25 09:30 DC 01/13/25 06:39 25 MLS/HR Magnesium Sulfate 50 ml @ 0 mls/hr PROTOCOL IV 01/13/25 09:30 02/12/25 09:29 Magnesium Sulfate 50 ml @ 0 mls/hr PROTOCOL PRN IV hypomagnesemia 01/02/25 14:30 01/07/25 09:24 DC Metoprolol Tartrate (loprESSOR) 25 mg BID PO 01/03/25 14:00 01/04/25 07:17 DC 01/03/25 20:29 25 MG Pantoprazole Sodium (PROTonix 40MG INJ) 40 mg BID IVP 01/04/25 21:00 01/12/25 10:07 DC 01/11/25 20:24 40 MG Pantoprazole Sodium (PROTonix 40MG TAB) 40 mg DAILY PO 01/03/25 09:00 01/04/25 10:02 DC 01/03/25 09:14 40 MG Pantoprazole Sodium (PROTonix 40MG TAB) 40 mg DAILY PO 01/13/25 09:00 02/12/25 08:59 01/13/25 09:22 40 MG Piperacillin Sod/ Tazobactam Sod (Zosyn 3.375gm+NS 50ml) 3.375 gm Q8H IV 01/10/25 20:00 01/20/25 19:59 01/13/25 04:01 3.375 GM Potassium Chloride 100 ml @ 100 mls/hr AD PRN IV POTASSIUM PROTOCOL 01/02/25 14:30 02/01/25 14:29 Potassium Chloride (K-Dur/Klor-Con 20meq) 20 meq AD PRN PO POTASSIUM PROTOCOL 01/02/25 14:30 02/01/25 14:29 01/13/25 09:22 20 MEQ Potassium Chloride (KCl 10% Elixir 20meq/15ml) 20 meq AD PRN PO POTASSIUM PROTOCOL 01/02/25 14:30 02/01/25 14:29 Pramipexole Dihydrochloride (miraPEX 0.25MG TAB) 0.5 mg HS PO 01/03/25 21:00 02/02/25 20:59 01/12/25 20:35 0.5 MG Prednisone (deltaSONE/ oraSONE 20MG TAB) 20 mg DAILY PO 01/05/25 09:30 01/10/25 09:29 DC 01/10/25 10:02 20 MG Sodium Hypochlorite (Dakin'S 0.25% Half Strength) 1 APPL BID TP 01/05/25 21:00 02/04/25 20:59 01/13/25 09:23 1 APPL Sodium Chloride 1,000 ml @ 150 mls/hr Q6H40M IV 01/02/25 19:30 01/02/25 23:29 DC 01/02/25 19:48 150 MLS/HR Spironolactone (Aldactone 25mg) 25 mg DAILY PO 01/07/25 10:00 02/06/25 09:59 01/13/25 09:22 25 MG Terbinafine HCl (Lamisil) 250 mg DAILY PO 01/03/25 09:00 02/02/25 08:59 01/13/25 09:22 250 MG Tramadol HCl (UltRAM) 50 mg Q6H PRN PO MODERATE PAIN (4-6) 01/03/25 23:30 01/08/25 23:29 DC 01/08/25 23:22 50 MG DIAGNOSTICS / RADIOLOGY: [ ] ASSESSMENT: Bilateral PE POA Acute on chronic hypoxic respiratory failure secondary to PE Troponin elevation likely in setting of PE Lower back pain MRI showing chronic compression fracture of T12 vertebrae 12/16/2024 Acute diastolic congestive heart failure Bilateral lower extremity edema with chronic wound History of venous stasis History of Pulmonary hypertension History of CardioMEMS device loose Obesity Obstructive sleep apnea Hypertension Hyperlipidemia CKD stage 3 Right ankle calcaneal spur, POA PLAN: PATIENT IS SEEN AND EXAMINED AT BEDSIDE, DISCUSSED WITH THE RN, NO ACUTE EVENTS OVERNIGHT, PATIENT HAVING LOOSE STOOL SINCE YESTERDAY, BUT NO NAUSEA, NO VOMITING, NO ABDOMINAL DISCOMFORT. DISCHARGE CURRENTLY ON HOLD PENDING IMPROVEMENT IN CLINICAL CONDITION, WE WILL ADD LACTOBACILLUS ONE CAPSULE P.O. B.I.D.. WE WILL ORDER STOOL STUDIES. DISCUSSED WITH THE PATIENT, AND AT BEDSIDE, IN AGREEMENT. NEURO: Minimize central acting medications as possible. Fall Precautions. Well lighted room through the day and minimize interruptions through the night to prevent acute delirium. PULMONARY: Supplemental 02 as needed BiPAP as necessary, for respiratory distress Titrate Fio2 to keep Spo2 > or = 90% DuoNebs and CPT as needed IS hourly while awake for pulmonary hygiene prn Out of bed to chair as tolerated Maintain aspiration precautions at all times CARDIOVASCULAR: Follow hemodynamics. Vital signs per facility protocol GI & NUTRITION: Continue nutritional support Aspirations precautions Prokinetic agents and laxatives as needed KIDNEYS & ELECTROLYTES: Strict monitoring of intake and output Daily weights Avoid nephrotoxic agents Monitor electrolytes and replace as needed Goal urine output of 30mL/hr or 0.5mL/kg/hr Medications to be dosed according to renal function. Avoid contrast if possible ENDOCRINE: Maintain blood glucose between 100-180 at all times. Insulin sliding scale for blood glucose management Hypoglycemia and hyperglycemia protocol in place INFECTIOUS DISEASE: Trend temperature, WBC and procalcitonin level Follow cultures, deescalate antibiotics as soon as possible. Panculture if new onset fever HEMATOLOGY & COAGULATION: Monitor H&H. Keep Hgb > 7 Transfuse 1 unit of PRBC for Hgb < 7 Transfuse 1 pack of platelets of platelets < 20, 000 Watch for any signs and symptoms of bleeding SKIN: Pressure ulcer prevention per facility protocol Specialty mattress as needed ORTHO/REHAB Continue PT/OT PRN: MEDICATIONS Tylenol 650 mg po every 4 hrs for fever zofran 4 mg IV every 6 hrs for n/v Hydralazine 5 mg IV every 4 hrs systolic pressure > 160 bowel regiment: lactulose 20 gm PO BID PRN constipation Supportive measures: Continue GI and DVT prophylaxis Disposition: Pending acceptance to nursing home facility All questions answered time spent: > 35 min KAYLEIGH LANIER MD Jan 13, 2025 12:36
--- NOTE | 2025-01-13 13:37 | PN ---
[facility] PROGRESS NOTE Date Patient Seen: Jan 13, 2025 Time of Visit: 13:32 Supervising Physician: SONY NAGY MD Primary Care Physician: VINCE HASSAN MD Outpatient Specialists: [ ] Inpatient Consults: [facility]URE[facility] PROBLEM LIST: Acute on chronic hypercarbic hypoxemic respiratory failure, improving Acute bilateral PE present on admission: Unprovoked, on anticoagulation therapy Status post bilateral embolectomy 01/03/2025 Acute non-STEMI on admission Acute DVT to the left lower extremity Compression fracture of the T12 vertebral body Chronic venous stasis of the lower extremities bilaterally Bilateral Pseudomonas cellulitis of lower extremities Cellulitis of the lower extremities bilaterally Mild pulmonary hypertension Morbid obesity:BMI 36 Obstructive sleep apnea Hypertension Chronic kidney disease stage 3 -HFpEF (LVEF: 60-65% by echo done 12/10/2024) s/p CardioMEMS insertion INTERVAL HISTORY: Patient seen and examined, patient awake alert and oriented, comfortably in bed patient afebrile, tolerating nasal cannula 2 L, vital signs stable as per nurse report she has been with loose stools started on Lactobacillus already, no fever, chills, nausea or vomiting reported. Otherwise Eliquis has been changed to 5 mg po BID, no signs of bleeding reported longterm plan is to be discharge to SNF once she is accepted. Plan is to sign off this case, thank you for let us be part of Mrs Quan care, do not hesitate to contact us if necessary. Plan: Plan is to sign off this case, thank you for let us be part of Mrs Kadeem guevara, do not hesitate to contact us if necessary. Discharge plan to SNF once insurance accepted continued antibiotics, following ID recs Monitor stools / Continue with probiotics Supplemental O2 Follow cardiology recs Eliquis 5 mg po BID REVIEW OF SYSTEMS: 12 points review of systems done; all pertinent information addressed. Otherwise, negative. PHYSICAL EXAM: GENERAL: alert, weak, awake oriented x 3, fatigue HEENT: EOMI, Sclera non icteric, moist mucosa NECK: History of thyroid mass, no JVD, trachea midline LUNGS: Decreased breath sounds bilaterally with fine crackles at the bases. No wheezing HEART: Regular rate and rhythm. Normal S1 and S2, without murmurs ABD: Abdomen soft, nontender. Bowel sounds present EXT: Bilateral lower extremity edema consistent with stasis, no cyanosis. NEURO: Alert and oriented to person, follows commands Vital Signs (last 8hr) Date Time Temp Pulse Resp B/P (MAP) Pulse Ox O2 Delivery O2 Flow Rate FiO2 01/13/25 11:00 98.2 92 22 115/80 95 Nasal Cannula 2.0 01/13/25 07:48 88 18 N/Cannula Low lpm 2.0 28 01/13/25 07:00 98.1 118 22 148/98 94 Nasal Cannula 2.0 LABS: Hematology Labs: Test 01/13/25 04:54 01/12/25 03:24 Range/Units White Blood Count 6.9 4.8-10.8 K/uL Red Blood Count 4.00 4.00-5.50 MIL/uL Hemoglobin 10.8 L 12.0-16.0 g/dL Hematocrit 35.5 L 36-48 % Mean Corpuscular Volume 88.8 79-99 fL Mean Corpuscular Hemoglobin 27.0 27.0-33.0 pg Mean Corpuscular Hemoglobin Concent 30.4 L 32.0-36.0 g/dL Red Cell Distribution Width 15.3 11.0-15.5 % Platelet Count 284 130-400 K/uL Mean Platelet Volume 9.7 7.5-10.5 fL Nucleated Red Blood Cells 0.0 0.0-0.19 % Immature Granulocyte % (Auto) 1.1 H 0-1 % Neutrophils (%) (Auto) 55.8 40.0-77.0 % Lymphocytes (%) (Auto) 30.0 21.0-51.0 % Monocytes (%) (Auto) 9.9 3.0-13.0 % Eosinophils (%) (Auto) 2.6 0.0-8.0 % Basophils (%) (Auto) 0.6 0.0-5.0 % Neutrophils # (Auto) 3.9 1.8-7.7 K/uL Lymphocytes # (Auto) 2.1 1.0-4.8 K/uL Monocytes # (Auto) 0.7 0.1-1.0 K/uL Eosinophils # (Auto) 0.18 0.00-0.70 K/uL Basophils # (Auto) 0.04 0.00-0.20 K/uL Absolute Immature Granulocyte (auto 0.08 0-1 K/uL Red Blood Cell Morphology See comments Chemistry Labs: Test 01/13/25 11:00 01/13/25 04:54 Range/Units Whole Blood Glucose 150 H 70-110 MG/DL Bedside Glucose Comment Notified Nurse Sodium Level 144 136-145 mmol/L Potassium Level 3.3 L 3.5-5.1 mmol/L Chloride Level 99 L 101-111 mmol/L Carbon Dioxide Level 35 H 21-32 mmol/L Blood Urea Nitrogen 17 7-18 mg/dL Creatinine 1.2 H 0.5-1.0 mg/dL Glomerular Filtration Rate Calc 51 >90 mL/min Random Glucose 136 H 70-105 mg/dL Total Calcium 8.9 8.5-10.1 mg/dL Magnesium Level 1.70 L 1.80-2.40 mg/dL Total Bilirubin 0.5 0.2-1.0 mg/dL Aspartate Amino Transf (AST/SGOT) 19 10-37 U/L Alanine Aminotransferase (ALT/SGPT) 23 12-78 U/L Alkaline Phosphatase 76 50-136 U/L Total Protein 6.2 6.0-8.3 g/dL Albumin 2.7 L 3.5-5.0 g/dL Coagulation Labs: Test 01/11/25 13:48 Range/Units Prothrombin Time 11.7 H 9.6-11.6 SEC Prothromb Time International Ratio 1.12 0.85-1.15 Activated Partial Thromboplast Time 26.8 26.3-35.5 SEC DIAGNOSTICS / RADIOLOGY RESULTS: [ ] PLAN NEURO: Minimize central acting medications as possible. Maintain fall precautions, adequate lighting during the day PULMONARY: Supplemental 02 as needed. Maintain aspiration precautions at all times CARDIOVASCULAR: Follow hemodynamics. Vital signs per facility protocol GI & NUTRITION: Continue with nutritional support. Continue stool softeners and laxatives as needed. KIDNEYS & ELECTROLYTES: Strict monitoring of intake, output and overall fluid balance. Avoid nephrotoxic medications to the extent possible. Medications to be dosed according to renal function. Monitor electrolytes and replace as needed ENDOCRINE: Maintain blood glucose between 100-180 at all times. Hypoglycemia protocol in place INFECTIOUS DISEASE: Trend temperature, WBC and procalcitonin level Follow cultures, deescalate antibiotics as soon as possible. Panculture if new onset fever ONCOLOGY/HEMATOLOGY/COAGULATION: Monitor for s/s of bleeding Monitor hemoglobin, coagulation studies as needed SKIN: Pressure ulcer prevention per facility protocol Specialty mattress ORTHO/REHAB: Continue PT/OT Prophylaxis: Continue GI and DVT prophylaxis Code Status: Full Resuscitation Disposition: As per primary ATTESTATION BY PHYSICIAN Documentation assistance provided by a scribe, information recorded by the scribe was done at my direction and has been reviewed and validated by me." CHARITY CARDOZA MD I personally scribed for YAKOV CARDOZA MD (MATT) on 01/13/25 at 13:37. Electronically submitted by Stephenie Cardona ([id number]). I personally scribed for YAKOV CARDOZA MD (MATT) on 01/13/25 at 13:47. Electronically submitted by Stephenie Cardona ([id number]). YAKOV CARDOZA MD Jan 13, 2025 13:37
[2025-01-13 15:14] LABS: ASPARTATE AMINOTRANSFERASE 18.0 U/L (10-37); CREATININE 1.6 mg/dL (0.5-1.0); GLOMERULAR FILTR. RATE CALC 36.0 mL/min (>90); GLUCOSE,RANDOM 181.0 mg/dL (70-105); SODIUM SERUM 142.0 mmol/L (136-145); TOTAL PROTEIN, SERUM 6.3 g/dL (6.0-8.3); UREA NITROGEN, BLOOD 17.0 mg/dL (7-18)
--- NOTE | 2025-01-13 19:09 | PN ---
PROGRESS NOTE Date of Service: Jan 13, 2025 Time of Service: 19:08 SUBJECTIVE: Patient is evaluated at bedside in room 231 with at bedside. Patient is awake, alert, and oriented x 4. Patient complain of loose stools started on Lactobacillus already. Patient has been tolerating dressing changes well. No signs of distress noted. Patient continue on antibiotics for Enterococcus faecalis and Pseudomonas aeruginosa to wound currently on Augmentin 875 mg p.o. b.i.d. and levofloxacin 500 mg daily. REVIEW OF SYSTEMS CONSTITUTIONAL: Denies fever, chills, or fatigue. HEAD/FACE: No signs of trauma. EENT: Denies eye pain, blurred vision, double vision, or light sensitivity. RESPIRATORY: Denies shortness of breath, cough, wheezing CARDIOVASCULAR: Denies chest pain, palpitation, syncope GASTROINTESTINAL/ABDOMINAL: Denies abdominal pain, constipation, positive for diarrhea, denies nausea or vomiting GENITOURINARY: Denies dysuria or hematuria. MUSCULOSKELETAL: Denies joint pain, tenderness, or trauma. INTEGUMENTARY: Denies rash or itchiness NEUROLOGICAL/PSYCH: Denies anxiety, depression, heat or cold intolerance. PHYSICAL EXAM EYES: Anicteric. Pupils equal and reactive. HENT: No oral thrush seen, moist Oral mucosa NECK: Supple, no JVD or thyromegaly. LUNGS: Good air entry. No rales, no rhonchi. CARDIOVASCULAR: S1, S2 regular. No murmur heard. ABDOMEN: Soft, non tender, bowel sounds present, no organomegaly CENTRAL NERVOUS SYSTEM: Awake, alert, oriented x 4. No focal deficits. SKIN: Right lower leg ulcer noted with 100% granulation with mild periwound erythema no drainage. Decrease in size. wound is improving. Left lower leg ulcer noted with granulation and minimal slough with periwound erythema,minimal serous drainage. Wound is improving. MUSCULOSKELETAL: Bilateral lower leg edema and erythema EXTREMITIES: No cyanosis or clubbing BACK: No deformity, no pressure ulcer. GENITOURINARY: No dysuria or hematuria Vital Signs (last 8hr) Date Time Temp Pulse Resp B/P (MAP) Pulse Ox O2 Delivery O2 Flow Rate FiO2 01/13/25 16:00 99.0 96 24 131/83 97 Nasal Cannula 2.0 LABS: Laboratory: Test 01/13/25 16:33 01/13/25 14:45 01/13/25 04:54 01/12/25 03:24 Range/Units Whole Blood Glucose 153 H 70-110 MG/DL Bedside Glucose Comment Notified Nurse Sodium Level 142 136-145 mmol/L Potassium Level 4.1 3.5-5.1 mmol/L Chloride Level 102 101-111 mmol/L Carbon Dioxide Level 38 H 21-32 mmol/L Blood Urea Nitrogen 17 7-18 mg/dL Creatinine 1.6 H 0.5-1.0 mg/dL Glomerular Filtration Rate Calc 36 >90 mL/min Random Glucose 181 H 70-105 mg/dL Total Calcium 8.5 8.5-10.1 mg/dL Magnesium Level 2.00 1.80-2.40 mg/dL Total Bilirubin 0.4 0.2-1.0 mg/dL Aspartate Amino Transf (AST/SGOT) 18 10-37 U/L Alanine Aminotransferase (ALT/SGPT) 27 12-78 U/L Alkaline Phosphatase 80 50-136 U/L Total Protein 6.3 6.0-8.3 g/dL Albumin 2.6 L 3.5-5.0 g/dL White Blood Count 6.9 4.8-10.8 K/uL Red Blood Count 4.00 4.00-5.50 MIL/uL Hemoglobin 10.8 L 12.0-16.0 g/dL Hematocrit 35.5 L 36-48 % Mean Corpuscular Volume 88.8 79-99 fL Mean Corpuscular Hemoglobin 27.0 27.0-33.0 pg Mean Corpuscular Hemoglobin Concent 30.4 L 32.0-36.0 g/dL Red Cell Distribution Width 15.3 11.0-15.5 % Platelet Count 284 130-400 K/uL Mean Platelet Volume 9.7 7.5-10.5 fL Nucleated Red Blood Cells 0.0 0.0-0.19 % Immature Granulocyte % (Auto) 1.1 H 0-1 % Neutrophils (%) (Auto) 55.8 40.0-77.0 % Lymphocytes (%) (Auto) 30.0 21.0-51.0 % Monocytes (%) (Auto) 9.9 3.0-13.0 % Eosinophils (%) (Auto) 2.6 0.0-8.0 % Basophils (%) (Auto) 0.6 0.0-5.0 % Neutrophils # (Auto) 3.9 1.8-7.7 K/uL Lymphocytes # (Auto) 2.1 1.0-4.8 K/uL Monocytes # (Auto) 0.7 0.1-1.0 K/uL Eosinophils # (Auto) 0.18 0.00-0.70 K/uL Basophils # (Auto) 0.04 0.00-0.20 K/uL Absolute Immature Granulocyte (auto 0.08 0-1 K/uL Red Blood Cell Morphology See comments PROBLEM LIST : Medical Problems: Chronic Venous Hypertension with ulcer to bilateral lower legs 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 Thank You for the consult and allowing us to participate in the care of this patient. ATTESTATION BY PHYSICIAN I have seen and examined the patient. I reviewed the documentation, medical decision making, and treatment plan as noted by the mid-level provider above. I agree with the findings and plan of care. BHASKAR CARREON MD, MICHELLE A TITLE I DIRECTOR Jan 13, 2025 19:09
--- NOTE | 2025-01-13 19:56 | NUR ---
Pt is not currently appropriate for PT services. Pt on anticoagulation for two DVTs, Will try again tomorrow. Yusuf PT
--- NOTE | 2025-01-13 21:10 | NUR ---
Orders Patient requesting anti anxiety medication. One time order given by Melani Palm via telephone. Order read back and entered.
[2025-01-13] MEDS: LACTOBACILLUS RHAMNOSUS GG 1 EACH CAP.SPRINK PO SCH (21:29)
--- NOTE | 2025-01-13 21:40 | NUR ---
Patient transferred to room 325 Report given to Awilda. All questions answered. All belongings sent with patient. Night medications given to patient prior to transport.
--- NOTE | 2025-01-13 22:00 | NUR ---
report called from otilio rn nurse called report received on the floor at 2230.
[2025-01-14 04:00] VITALS: BP 126/89; PULSE 62; RESP 21; TEMP 97.7
[2025-01-14 04:19] LABS: NUCLEATED RED BLOOD CELLS 0.0 % (0.0-0.19); PLATELET COUNT (AUTO) 270.0 K/uL (130-400); RED BLOOD CELL COUNT(AUTO) 3.83 MIL/uL (4.00-5.50); RED CELL DISTRIBUTION WIDTH 15.6 % (11.0-15.5); WHITE BLOOD COUNT (AUTO) 6.4 K/uL (4.8-10.8)
[2025-01-14 04:42] LABS: ASPARTATE AMINOTRANSFERASE 15.0 U/L (10-37); CREATININE 1.2 mg/dL (0.5-1.0); GLOMERULAR FILTR. RATE CALC 51.0 mL/min (>90); GLUCOSE,RANDOM 122.0 mg/dL (70-105); SODIUM SERUM 143.0 mmol/L (136-145); TOTAL PROTEIN, SERUM 5.8 g/dL (6.0-8.3); UREA NITROGEN, BLOOD 15.0 mg/dL (7-18)
[2025-01-14 05:29] VITALS: PULSE 90; RESP 20; O2SAT 92
[2025-01-14 07:36] VITALS: PULSE 112; RESP 22; O2SAT 96
[2025-01-14 08:00] VITALS: BP 128/76; PULSE 111; RESP 21; TEMP 97.6; O2SAT 97
--- NOTE | 2025-01-14 08:00 | NUR ---
PAIN ASSESSMENT Patient reports pain at 6/10. She would like to have pain medication after breakfast. Repositioned for comfort. Television on to channel of patient choice for distraction.
[2025-01-14] MEDS: MAGNESIUM 2GM PREMIX 50ML 50 ML IV SCH (08:44)
--- NOTE | 2025-01-14 09:16 | NUR ---
PATIENT APPROVED FOR [facility] Dr. Boyd notified.
--- NOTE | 2025-01-14 09:46 | NUR ---
PAIN REASSESSMENT Patient pain decreased from 9/10 to 4/10. Patient does not want pain medication, states that if she needs it, she will call for it.
[2025-01-14] MEDS ORDERED: MAGNESIUM 2GM PREMIX 50ML 50 ML IV SCH (10:00)
--- NOTE | 2025-01-14 11:20 | NUR ---
Patient requesting prn toradol. pain at 6/10
[2025-01-14 12:00] VITALS: BP 100/76; PULSE 110; RESP 20; TEMP 98.1
--- NOTE | 2025-01-14 13:29 | NUR ---
PARMJIT WRIGHT, LAUREN Coello will follow patient at [facility]. Right lower extremity has improved significantly. Left lower improved. Will continue with ordered treatment of Dakins. Coello to notify GASTROENTEROLOGY PROFESSOR at [place] regarding treatment, wound care orders.
--- NOTE | 2025-01-14 13:52 | DS ---
Discharge Summary Hospital Course Summary: Date of service 01/14/2025 The patient admitted to the hospital January 02, 2025 with the following history of the present illness 64-year-old female past medical history of hypertension, obesity, hyperlipidemia, rheumatoid arthritis, history of pulmonary hypertension on home oxygen, obstructive sleep apnea, history of CHF, history of lower extremity venous stasis with chronic wound, history of lower back pain, history of compression fracture of the lumbar spine who presented to the hospital secondary to chest pain and shortness of breaths. The patient states since this morning she noted that she was getting increasingly short of breath at rest. She also had pain in the chest bilaterally. She denied any pain radiating to her arms, paresthesias stoma jaw. She has a history of chronic lower extremity ulcer which she currently has a dressing present on. She has noted some discharge from the leg. She has been having increasing pain in the lower back and is not able to lie down flat. She prefers to be in a sitting position. She denied being on any blood thinners. Denied any fever, chills, cough, abdominal pain, nausea, vomiting. Denied any hematuria, melena, hematochezia, hematemesis. On presentation patient's temperature was 98.2, heart rate was 113 one three, patient's respiratory rate was 20, blood pressure was 110/76 Labs were notable for white count of 8.9, hemoglobin was 13.5, platelet count was 252 K, sodium was 142, potassium was 3.1, creatinine was 1.3, troponin initially was 235, BNP was 29, troponin trended up to [address] chest which showed bilateral PE both pulmonary arteries HOSPITAL COURSE 01/04 Patient underwent pulmonary thrombectomy. Complications reported. Patient is resting comfortably in bedside chair. She reports postprocedure she is feeling better. Patient has been transitioned to [facility] 01/05 patient is resting comfortably in bed. Yesterday the patient has complained of right sided rib pain and and right ankle pain. X-ray of the right ribs was negative for fracture and no pneumothorax. X-ray of the right ankle demonstrated calcaneal spur with inflammation of the surrounding tissue. Patient is undergoing home O2 evaluation, physical therapy evaluation 01/06 patient was seen by nurse practitioner and physician during rounding in room 231 lying in the bed. Nurse practitioner was able to speak to Dr. Manpreet Stone regarding the diuresis. We will discontinue Lasix IV and we will place patient on Bumex 1 mg p.o. b.i.d. starting today. We will monitor patient's blood pressure in the meantime. If tomorrow BP we will be stable we will add spironolactone 25 mg daily. Patient is also complaining of some cough. Robitussin we will be ordered. As per case management patient is refusing SNF. Patient would like to return home with her home health. 6 minute walk prior discharge was ordered. We will continue to monitor patient in the meantime. A.m. labs 01/07 patient was seen by FOUNDRY OPERATOR and physician. Patient's blood pressure has been holding up nicely most recent BP is 138/70 and the previous one was 118/82 at 7:50 a.m.. As per cognos bi developer request from day before we will add spironolactone 25 mg daily. Of the blood pressure will still hold up nicely patient to be discharged tomorrow. Patient already has an oxygen tank at home. Potassium magnesium to be replaced per protocol. Continue Eliquis 10 mg every 12 hours for total seven days and then follow with Eliquis 5 mg q.12 hours after that. Continue Aldactone 25 mg daily as per Cardiology. As per wound recommendation wound care to the right and left lower leg cleanse with normal saline, pat dry, apply Adaptic/Vaseline gauze to wound, cover with 4 x 4 gauze soaked with the Dakin's call with a gas, abdominal pad, wrap with Kerlix CK with tape change b.i.d. and PRN. He wounds clean and dry. Offloading repositioning q 2 hours. As per case management discharge planning is home with the [facility]. We will continue to monitor patient's blood pressure in the meantime. Anticipated discharge within 24 hours. A.m. labs 01/08 patient was seen by nurse practitioner and physician during rounding in room 231. Patient was cleared by cognos bi developer to be discharged home on Bumex 1 mg b.i.d. and spironolactone 20 five daily. Lasix was discontinued. Patient feels 6 minute walk but already has oxygen at home. We are still pending final wound culture. Once dose we will come back patient will be discharged home with [facility] and appropriate antibiotics. Patient to continue Eliquis 10 mg b.i.d. for total of seven days and then continue with 5 mg b.i.d. for at least 10 days. As per law professor continue prednisolone 20 mg daily. We will continue to monitor patient in the meantime. Labs. 01/09 patient was seen by FOUNDRY OPERATOR and physician. Patient's wound culture is growing Enterococcus faecalis and Pseudomonas aeruginosa. Final culture still pending. Patient will receive 2 g of magnesium and 40 mEq of potassium in the meantime. Patient is alert oriented x4 resting in the bed. Patient was also complaining of some chronic back pain. Tylenol with codeine was prescribed q.6 hours as needed. Nurse practitioner was also able to talk to the patient regarding recommendations of cognos bi developer to be discharged to cardiac rehab. Patient agreed with the further plan. Case management was consulted. We will continue to monitor patient in the meantime. A.m. labs 01/10 patient was seen by nurse practitioner and physician during rounding. Pat ient was sitting in the chair on 4 L nasal cannula. As per RN patient was just walking around the nursing station with a PCP and walker. Patient was short of breaths so decided to go back to room to take a break. Final wound culture is growing Enterococcus faecalis and Pseudomonas aeruginosa. As per susceptibility that came back today in a.m. patient will be placed on Augmentin 875 mg p.o. b.i.d. and levofloxacin 500 mg daily p.o. as of now. If patient will be accepted to facility we can switch antibiotics to ID. If patient will refused from SNF patient will go home on p.o. ABX. Continue Eliquis 10 mg p.o. b.i.d. for total of seven days and then switch to 5 mg b.i.d.. We will continue to monitor patient in the meantime. A.m. labs. 01/11 patient was seen by FOUNDRY OPERATOR and physician sitting in the chair at the bedside. As per RN patient has been ambulating around the nursing station. Patient alert oriented x4 on 4 L nasal cannula. Patient was evaluated by the wound care and at this moment they recommended right and left lower leg cleanse with normal saline, pat dry, apply Adaptic/Vaseline gauze to wound, covered with 4 x 4 gauze soaked with Dakin's covered with a gauze, abdominal pad, brought the Kerlix secure with tape change b.i.d. and PRN. Keep wounds clean and dry. Offloading/reposition q.2 hours. Continue antibiotics for Enterococcus faecalis and Pseudomonas aeruginosa with Augmentin 875 mg p.o. b.i.d. and levofloxacin 500 mg daily POA. Patient completed a course of total of seven days on Eliquis 10 mg b.i.d.. Patient will continue with Eliquis 5 mg b.i.d. starting today. Patient is pending cardiac rehab once insurance approved. We will continue to monitor patient in the meantime. A.m. labs 01/12 patient is seen and examined at bedside, discussed with the RN, no acute events overnight, sitting comfortable in chair, on 2 L nasal cannula, saturating 98%, denied chest pain, no shortness a breath, no nausea, no vomiting.Patient was evaluated by the wound care and at this moment they recommended right and left lower leg cleanse with normal saline, pat dry, apply Adaptic/Vaseline gauze to wound, covered with 4 x 4 gauze soaked with Dakin's covered with a gauze, abdominal pad, brought the Kerlix secure with tape change b.i.d. and PRN. Keep wounds clean and dry. Offloading/reposition q.2 hours. Continue antibiotics for Enterococcus faecalis and Pseudomonas aeruginosa with Augmentin 875 mg p.o. b.i.d. and levofloxacin 500 mg daily POA. Patient completed a course of total of seven days on Eliquis 10 mg b.i.d.. Patient will continue with Eliquis 5 mg b.i.d. starting today. Patient is pending cardiac rehab once insurance approved. We will continue to monitor patient in the meantime. [facility] 01/13 PATIENT IS SEEN AND EXAMINED AT BEDSIDE, DISCUSSED WITH THE RN, NO ACUTE EVENTS OVERNIGHT, PATIENT HAVING LOOSE STOOL SINCE YESTERDAY, BUT NO NAUSEA, NO VOMITING, NO ABDOMINAL DISCOMFORT. DISCHARGE CURRENTLY ON HOLD PENDING IMPROVEMENT IN CLINICAL CONDITION, WE WILL ADD LACTOBACILLUS ONE CAPSULE P.O. B.I.D.. WE WILL ORDER STOOL STUDIES. DISCUSSED WITH THE PATIENT, AND AT BEDSIDE, IN AGREEMENT. 01/14 THE PATIENT IS HEMODYNAMICALLY STABLE TODAY, ALERT ORIENTED X3, DENIES NAUSEA, NO VOMITING, NO ABDOMINAL DISCOMFORT, ADMITS LESS EPISODES OF BOWEL MOVEMENT, THEY ARE NOW MORE SOLID. NO NAUSEA, NO VOMITING, NO ABDOMINAL PAIN. THE PATIENT HAS A ALREADY BEEN [facility]ED [facility], DISCHARGED TODAY. Supply Chain Development Manager(s): PULMONARY AND INFECTIOUS DISEASE SERVICES Assessment/Plan: FINAL DIAGNOSIS Bilateral PE POA Acute on chronic hypoxic respiratory failure secondary to PE Troponin elevation likely in setting of PE Lower back pain MRI showing chronic compression fracture of T12 vertebrae 12/16/2024 Acute diastolic congestive heart failure Bilateral lower extremity edema with chronic wound History of venous stasis History of Pulmonary hypertension History of CardioMEMS device loose Obesity Obstructive sleep apnea Hypertension Hyperlipidemia CKD stage 3 Right ankle calcaneal spur, POA Discharge Instructions: PATIENT TO BE DISCHARGED TO [facility] TODAY, RETURN TO HOSPITAL IF CONDITION CHANGES. Home Medications: Active Scripts Acetaminophen with Codeine (Acetaminophen-Cod #3 Tablet) 300 Mg-30 Mg Tablet, 2 TAB PO Q6HPRN PRN for MODERATE TO SEVERE, #20 TAB 0 Refills TWO TABLETS BY MOUTH EVERY 6 HOURS NEEDED FOR MODERATE TO SEVERE BACK PAIN Prov:DOMINICK ALLEN 11/29/24 Reported Medications Baclofen (Baclofen) 10 Mg Tablet, 5 MG PO TIDP PRN for BACK PAIN, TAB 01/03/25 Insulin Glargine,Hum.rec.anlog (Lantus Solostar) 100 Unit/Ml (3 Ml) Insuln.pen, 10 UNIT SQ HS for 30 Days, #5 ML 0 Refills 12/09/24 Blood Sugar Diagnostic (Freestyle Lite Strips) 1 Each Strip, 1 STRIP MISC DAILY for 30 Days, #30 STRIP 0 Refills 12/09/24 Omeprazole (Omeprazole) 40 Mg Capsule.dr, 1 CAP PO DAILY for 30 Days, #30 CAP 0 Refills 12/09/24 Spironolactone (Spironolactone) 25 Mg Tablet, 1 TAB PO DAILY for 30 Days, #30 TAB 0 Refills 12/09/24 Bumetanide (Bumetanide) 2 Mg Tablet, 1 TAB PO DAILY for 30 Days, #30 TAB 0 Refills 12/09/24 Terbinafine HCl (Terbinafine HCl) 250 Mg Tablet, 1 TAB PO DAILY for 30 Days, #30 TAB 0 Refills 12/09/24 Upadacitinib (Rinvoq ER) 15 Mg Tab.er.24h, 15 MG PO AM, TAB 12/09/24 Atorvastatin Calcium (LIPITOR) 20 Mg Tab, 1 TAB PO DAILY for 30 Days, #30 TAB 0 Refills 12/09/24 Ferrous Sulfate (Ferrous Sulfate) 325 Mg (65 Mg Iron) Ectab, 1 TAB PO BID for 30 Days, #60 TAB 0 Refills 08/16/24 Dapagliflozin Propanediol (Farxiga) 10 Mg Tablet, 1 TAB PO DAILY for 30 Days, #30 TAB 0 Refills 08/16/24 Methimazole (Methimazole) 5 Mg Tablet, 1 TAB PO DAILY for 30 Days, #30 TAB 0 Refills 08/16/24 Pramipexole Di-HCl (Pramipexole Dihydrochloride) 0.5 Mg Tablet, 1 TAB PO HS for 30 Days, #30 TAB 0 Refills 08/16/24 Metoprolol Succinate (Metoprolol Succinate) 25 Mg Tab.er.24h, 1 TAB PO DAILY for 30 Days, #30 TAB 0 Refills 08/16/24 Metolazone (Metolazone) 2.5 Mg Tablet, 2.5 MG PO QMOWEFR, TAB 08/16/24 Time spent arranging discharge: 31-60 minutes KAYLEIGH LANIER MD Jan 14, 2025 13:52
--- NOTE | 2025-01-14 15:25 | NUR ---
Conditional discharge in place. May discharge after replacement of electrolytes and rechecking levels. Magnesium replace for Mg = 1.6. Potassium replaced x 1 for potassium = 3.6. Next dose will be given and recheck performed 2 hours after administration. Report will be called to [facility] with notification that patient is pending recheck of electrolyte levels.
[2025-01-14] MEDS: PoTASSium chloRIDE 20MEQ ER 20 MEQ ERTAB PO ONE (15:33)
--- NOTE | 2025-01-14 15:50 | NUR ---
REPORT CALLED TO [facility] Nurse Guerline, received report. Patient will have elecrolyte levels rechecked at 1700. Will contact Guerline once results received. Medication reconciliation faxed to facility.
--- NOTE | 2025-01-14 17:29 | PN ---
PROGRESS NOTE Date of Service: Jan 14, 2025 Time of Service: 17:29 SUBJECTIVE: Patient is evaluated at bedside in room 325 with at bedside. Patient is awake, alert, and oriented x 4. Patient denies any complaints at this time. No signs of distress noted. Patient has been tolerating dressing changes well. Patient reports plan is for discharge to [facility]. REVIEW OF SYSTEMS CONSTITUTIONAL: Denies fever, chills, or fatigue. HEAD/FACE: No signs of trauma. EENT: Denies eye pain, blurred vision, double vision, or light sensitivity. RESPIRATORY: Denies shortness of breath, cough, wheezing CARDIOVASCULAR: Denies chest pain, palpitation, syncope GASTROINTESTINAL/ABDOMINAL: Denies abdominal pain, constipation, positive for diarrhea, denies nausea or vomiting GENITOURINARY: Denies dysuria or hematuria. MUSCULOSKELETAL: Denies joint pain, tenderness, or trauma. INTEGUMENTARY: Denies rash or itchiness NEUROLOGICAL/PSYCH: Denies anxiety, depression, heat or cold intolerance. PHYSICAL EXAM EYES: Anicteric. Pupils equal and reactive. HENT: No oral thrush seen, moist Oral mucosa NECK: Supple, no JVD or thyromegaly. LUNGS: Good air entry. No rales, no rhonchi. CARDIOVASCULAR: S1, S2 regular. No murmur heard. ABDOMEN: Soft, non tender, bowel sounds present, no organomegaly CENTRAL NERVOUS SYSTEM: Awake, alert, oriented x 4. No focal deficits. SKIN: Right lower leg ulcer noted with 100% granulation with mild periwound erythema no drainage. Decrease in size. wound is improving. Left lower leg ulcer noted with granulation and minimal slough with periwound erythema,minimal serous drainage. Wound is improving. MUSCULOSKELETAL: Bilateral lower leg edema and erythema EXTREMITIES: No cyanosis or clubbing BACK: No deformity, no pressure ulcer. GENITOURINARY: No dysuria or hematuria Vital Signs (last 8hr) Date Time Temp Pulse Resp B/P (MAP) Pulse Ox O2 Delivery O2 Flow Rate FiO2 01/14/25 12:00 98.1 110 20 100/76 97 Nasal Cannula 3.0 28 LABS: Laboratory: Test 01/14/25 16:36 01/14/25 15:58 01/14/25 03:58 Range/Units Potassium Level 4.2 3.5-5.1 mmol/L Magnesium Level 2.30 1.80-2.40 mg/dL Whole Blood Glucose 154 H 70-110 MG/DL Bedside Glucose Comment Notified Nurse White Blood Count 6.4 4.8-10.8 K/uL Red Blood Count 3.83 L 4.00-5.50 MIL/uL Hemoglobin 10.3 L 12.0-16.0 g/dL Hematocrit 34.6 L 36-48 % Mean Corpuscular Volume 90.3 79-99 fL Mean Corpuscular Hemoglobin 26.9 L 27.0-33.0 pg Mean Corpuscular Hemoglobin Concent 29.8 L 32.0-36.0 g/dL Red Cell Distribution Width 15.6 H 11.0-15.5 % Platelet Count 270 130-400 K/uL Mean Platelet Volume 9.6 7.5-10.5 fL Nucleated Red Blood Cells 0.0 0.0-0.19 % Sodium Level 143 136-145 mmol/L Chloride Level 103 101-111 mmol/L Carbon Dioxide Level 38 H 21-32 mmol/L Blood Urea Nitrogen 15 7-18 mg/dL Creatinine 1.2 H 0.5-1.0 mg/dL Glomerular Filtration Rate Calc 51 >90 mL/min Random Glucose 122 H 70-105 mg/dL Total Calcium 8.5 8.5-10.1 mg/dL Total Bilirubin 0.4 0.2-1.0 mg/dL Aspartate Amino Transf (AST/SGOT) 15 10-37 U/L Alanine Aminotransferase (ALT/SGPT) 24 12-78 U/L Alkaline Phosphatase 72 50-136 U/L Total Protein 5.8 L 6.0-8.3 g/dL Albumin 2.4 L 3.5-5.0 g/dL PROBLEM LIST : Medical Problems: Chronic Venous Hypertension with ulcer to bilateral lower legs 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 Thank You for the consult and allowing us to participate in the care of this patient. ATTESTATION BY PHYSICIAN I have seen and examined the patient. I reviewed the documentation, medical decision making, and treatment plan as noted by the mid-level provider above. I agree with the findings and plan of care. BHASKAR CARREON MD, MICHELLE A RAILCAR SWITCHMAN Jan 14, 2025 17:29
--- NOTE | 2025-01-14 17:34 | NUR ---
ELECTROLYTE RESULTS SHOWING IMPROVEMENT Potassium = 4.2 magnesium = 2.3 Facility team driver here to knot picker cloth patient. Nurse, SYEDA Odonnell was told in report that patient is O2 dependant. [employer] Principal does not have oxygen tank. States he was told the patient did not require oxygen.
--- NOTE | 2025-01-14 17:45 | NUR ---
Patient requesting to use restroom prior to discharge
--- NOTE | 2025-01-14 18:00 | NUR ---
Patient requesting Toradol prior to discharge
--- NOTE | 2025-01-14 18:26 | NUR ---
DISCHARGE NOTE IV and ID bands removed. Pressure held for hemostasis x 10 minutes. Patient on Eliquis, and bleeding noted. Discharge instructions, paperwork read and reviewed with patient. Personal items packed and taken by spouse. Spouse brought patient's home portable oxygen for transport. Patient taken down to 1st floor via wheelchair to facility van.
== END 2025-01-14 18:25 | DRG 163 ==
LOC: EDH 09:46 → EDHIP 14:12 → 2BH 16:00 → 2AH 01-05 11:30 → 3DH 01-13 22:07
PROVIDERS: ADMIT Internal Medicine; ATTEND Internal Medicine
PROC: 02CQ3ZZ Extirpation of Matter from Right Pulmonary Artery, Percutaneous Approach (ICD-10-PCS; principal; 2025-01-02)
PROC: 02CQ3ZZ Extirpation of Matter from Right Pulmonary Artery, Percutaneous Approach (ICD-10-PCS; 2025-01-02)
PROC: 02CQ3ZZ Extirpation of Matter from Right Pulmonary Artery, Percutaneous Approach (ICD-10-PCS; 2025-01-02)
PROC: 02CR3ZZ Extirpation of Matter from Left Pulmonary Artery, Percutaneous Approach (ICD-10-PCS; 2025-01-02)
PROC: B5191ZA Fluoroscopy of Inferior Vena Cava using Low Osmolar Contrast, Guidance (ICD-10-PCS; 2025-01-02)
PROC: 4A023N6 Measurement of Cardiac Sampling and Pressure, Right Heart, Percutaneous Approach (ICD-10-PCS; 2025-01-02)
PROC: B31S1ZZ Fluoroscopy of Right Pulmonary Artery using Low Osmolar Contrast (ICD-10-PCS; 2025-01-02)
PROC: 02CR3ZZ Extirpation of Matter from Left Pulmonary Artery, Percutaneous Approach (ICD-10-PCS; 2025-01-02)
PROC: 02CR3ZZ Extirpation of Matter from Left Pulmonary Artery, Percutaneous Approach (ICD-10-PCS; 2025-01-02)
PROC: 5A09357 Assistance with Respiratory Ventilation, Less than 24 Consecutive Hours, Continuous Positive Airway Pressure (ICD-10-PCS; 2025-01-05)
PROC: 5A09357 Assistance with Respiratory Ventilation, Less than 24 Consecutive Hours, Continuous Positive Airway Pressure (ICD-10-PCS; 2025-01-06)
PROC: 5A09357 Assistance with Respiratory Ventilation, Less than 24 Consecutive Hours, Continuous Positive Airway Pressure (ICD-10-PCS; 2025-01-07)
PROC: 5A09357 Assistance with Respiratory Ventilation, Less than 24 Consecutive Hours, Continuous Positive Airway Pressure (ICD-10-PCS; 2025-01-09)
PROC: 5A09357 Assistance with Respiratory Ventilation, Less than 24 Consecutive Hours, Continuous Positive Airway Pressure (ICD-10-PCS; 2025-01-10)
PROC: 5A09357 Assistance with Respiratory Ventilation, Less than 24 Consecutive Hours, Continuous Positive Airway Pressure (ICD-10-PCS; 2025-01-11)
PROC: 5A09357 Assistance with Respiratory Ventilation, Less than 24 Consecutive Hours, Continuous Positive Airway Pressure (ICD-10-PCS; 2025-01-13)
PROC: 5A09357 Assistance with Respiratory Ventilation, Less than 24 Consecutive Hours, Continuous Positive Airway Pressure (ICD-10-PCS; 2025-01-14)
DX: I26.99 Other pulmonary embolism without acute cor pulmonale (principal); I21.A1 Myocardial infarction type 2; J96.21 Acute and chronic respiratory failure with hypoxia; I50.31 Acute diastolic (congestive) heart failure; J96.22 Acute and chronic respiratory failure with hypercapnia; M48.54XA Collapsed vertebra, not elsewhere classified, thoracic region, initial encounter for fracture; I13.0 Hypertensive heart and chronic kidney disease with heart failure and stage 1 through stage 4 chronic kidney disease, or unspecified chronic kidney disease; I82.412 Acute embolism and thrombosis of left femoral vein; I50.32 Chronic diastolic (congestive) heart failure; I87.313 Chronic venous hypertension (idiopathic) with ulcer of bilateral lower extremity; L97.528 Non-pressure chronic ulcer of other part of left foot with other specified severity; L97.518 Non-pressure chronic ulcer of other part of right foot with other specified severity; L97.919 Non-pressure chronic ulcer of unspecified part of right lower leg with unspecified severity; Z20.822 Contact with and (suspected) exposure to COVID-19; G47.33 Obstructive sleep apnea (adult) (pediatric); N18.30 Chronic kidney disease, stage 3 unspecified; E11.22 Type 2 diabetes mellitus with diabetic chronic kidney disease; J44.9 Chronic obstructive pulmonary disease, unspecified; E66.01 Morbid (severe) obesity due to excess calories; E78.00 Pure hypercholesterolemia, unspecified; G89.29 Other chronic pain; I87.2 Venous insufficiency (chronic) (peripheral); I87.8 Other specified disorders of veins; B95.2 Enterococcus as the cause of diseases classified elsewhere; D64.9 Anemia, unspecified; I27.20 Pulmonary hypertension, unspecified; I45.9 Conduction disorder, unspecified; I25.2 Old myocardial infarction; Z68.38 Body mass index [BMI] 38.0-38.9, adult; Z79.899 Other long term (current) drug therapy; Z79.01 Long term (current) use of anticoagulants; Z86.718 Personal history of other venous thrombosis and embolism; Z90.49 Acquired absence of other specified parts of digestive tract; Z90.710 Acquired absence of both cervix and uterus; Z99.81 Dependence on supplemental oxygen
CPT/HCPCS: 36415; 36556; 36600; 37184; 37185; 71045; 71100; 71270; 73600; 75743; 75825; 80048; 80053; 81001; 82435; 82550; 82803; 82947; 82948; 83036; 83605; 83735; 83880; 84132; 84145; 84295; 84443; 84484; 85018; 85025; 85027; 85347; 85610; 85730; 86140; 86850; 86900; 86901; 87070; 87076; 87086; 87186; 87635; 87804; 87880; 93005; 93306; 93308; 93451; 93970; 94660; 96365; 96375; 99156; 99157; 99285; A6250; C1769; C1894; G0378; J0696; J1171; J1200; J1644; J1815; J1885; J1938; J2250; J2270; J2405; J2470; J2543; J3010; J3475; J3480; J3490; J7040; Q9967; A6260; C1751; C1757; J1308; Q9965

== ENCOUNTER → 2025-03-12 | Outpatient (CLI) | payer OTHER, MEDICARE ==
[~2025-03-12] MED LIST changes: +APIX5TAB PO; -ASPI-1197 PO; +BACL10TA PO; +BUME1TAB6 PO; -BUME2TAB5 PO; -FURO40TA7 PO; -LOSA25TA41 PO; -OXYC10TA48 PO; -POTA-202 PO; -PRED10TA23 PO; -PREG100C56 PO; -SEMA2PEN SQ; -[UNRECOGNIZED DRUG - CODE] PO
== END ==
LOC: RAH 10:06
PROVIDERS: ATTEND Internal Medicine
DX: Z12.31 Encounter for screening mammogram for malignant neoplasm of breast (principal)
CPT/HCPCS: 77067